=== PATIENT | female | born 1940 ===

== ENCOUNTER 2017-10-13 15:03 | Inpatient (IN) | payer MEDICARE, MEDICAID ==
[2017-10-13 15:03] VITALS: BMI 30.8
[2017-10-13] MEDS ORDERED: Albuterol-Ipratrop 3 mg / 0.5 (3 ml) UD INH STA ×2 (16:35→18:22)
--- NOTE | 2017-10-13 16:37 | RAD ---
HISTORY: cough COMPARISON: 09/29/2016 TECHNIQUE: Chest PA and lateral FINDINGS: LUNGS: No active pulmonary disease. PLEURA: No significant pleural effusion identified. No pneumothorax apparent. CARDIOVASCULAR: Normal. OSSEOUS STRUCTURES: No significant abnormalities. VISUALIZED UPPER ABDOMEN: Normal. OTHER FINDINGS: None. IMPRESSION: No active disease.
--- NOTE | 2017-10-13 16:43 | ED PDOC ---
HPI: CCC, URI, Sore Throat Time Seen by Provider: 10/13/17 16:12 Chief Complaint (Nursing): Flu-like Symptoms Chief Complaint (Provider): Flu-like symptoms History Per: Patient History/Exam Limitations: no limitations Onset/Duration Of Symptoms: Days (several), Persistent, Worse Since (onset) Current Symptoms Are (Timing): Still Present Sick Contacts (Context): Family Member(s) (Sister w/ bronchitis) Associated Symptoms: Fever (low grade), Cough, Other (dyspnea, fatigue, and malaise) Ear Symptoms: Bilateral: None Additional Complaint(s): Deja Scott is a 77 year old female, with a past medical history of asthma, pneumonia, COPD, diabetes, and HTN, who presents to the emergency department complaining of a worsening persistent cough, dyspnea, fatigue, and malaise ongoing for several days. Patient's PMD, Dr. David, prescribed her azithromycin yesterday which she started. Patient has a low grade fever, and reports a sick contact with her sister who has bronchitis. No lethargy, syncope or respiratory distress, although using more oxygen at home. No further medical complaints. PMD: Luís David Past Medical History Reviewed: Historical Data, Nursing Documentation, Vital Signs Vital Signs: Last Vital Signs Temp 98.5 F 10/13/17 18:50 Pulse 107 H 10/13/17 18:50 Resp 20 10/13/17 18:50 BP 122/56 L 10/13/17 18:50 Pulse Ox 98 10/13/17 18:50 - Medical History PMH: Anemia, Anxiety, Arthritis, Asthma, COPD, Depression, Diabetes, Graves' Disease, HTN, Osteoporosis, Pneumonia Denies: CHF, Hypercholesterolemia, Hypothyroidism, Chronic Kidney Disease - Surgical History Surgical History: No Surg Hx - Family History Family History: States: No Known Family Hx - Social History Current smoker - smoking cessation education provided: No - Immunization History Hx Influenza Vaccination: Yes Hx Pneumococcal Vaccination: Yes - Home Medications Home Medications: Ambulatory Orders Medication Instructions Recorded Clopidogrel [Plavix] 75 mg PO DAILY #0 tab 07/17/14 Insulin Detemir [Levemir] 20 units SC [facility] #0 ml 07/17/14 Montelukast [Singulair] 10 mg PO HS #0 tab 07/17/14 Valsartan [Diovan] 320 mg PO DAILY #0 tab 07/17/14 Zolpidem Tartrate [Zolpidem] 10 mg PO HS PRN 01/04/15 Insulin Aspart [Novolog Flexpen] 18 units SC TID 04/14/15 - Allergies Allergies/Adverse Reactions: Allergies Allergy/AdvReac Type Severity Reaction Status Date / Time aspirin AdvReac RASH Verified 09/25/16 13:11 Review of Systems ROS Statement: Except As Marked, All Systems Reviewed And Found Negative Constitutional: Positive for: Chills, Malaise Cardiovascular: Positive for: Other (Chest discomfort). Negative for: Orthopnea , Edema Respiratory: Positive for: Cough (persistent), Shortness of Breath Neurological: Negative for: Headache Physical Exam - Reviewed Nursing Documentation Reviewed: Yes Vital Signs Reviewed: Yes - Physical Exam Appears: Positive for: Non-toxic Head Exam: Positive for: ATRAUMATIC, NORMAL INSPECTION, NORMOCEPHALIC Skin: Positive for: Normal Color, Warm, Dry Eye Exam: Positive for: Normal appearance ENT: Positive for: Normal ENT Inspection Neck: Positive for: Painless ROM, Supple Cardiovascular/Chest: Positive for: Regular Rate, Rhythm. Negative for: Murmur Respiratory: Positive for: Wheezing (b/l trace). Negative for: Respiratory Distress Gastrointestinal/Abdominal: Positive for: Normal Exam, Soft. Negative for: Tenderness Back: Positive for: Normal Inspection. Negative for: L CVA Tenderness, R CVA Tenderness, Vertebral Tenderness Extremity: Positive for: Normal ROM. Negative for: Pedal Edema, Deformity, Swelling Neurologic/Psych: Positive for: Alert, Oriented - Laboratory Results Result Diagrams: 10/13/17 17:18 10/13/17 17:18 - ECG O2 Sat by Pulse Oximetry: 95 (RA) Pulse Ox Interpretation: Normal Nebulizer Treatments/Peak Flow - Duonebs Number of Bronchodilator Doses given?: 2 - Steroid Treatment Steroid: IV - Clinical Response Clinical Response: Unchanged Medical Decision Making Medical Decision Making: Initial Impression: Respiratory illness / Asthma exacerbation Initial Plan: --EKG --B-Type Natriuretic peptide --Comp Metabolic Panel --Troponin I --CBC w/ differential --Chest two views (PA/LAT) [RAD] --Tylenol 325 mg tab 650 mg PO --Duoneb 3 ml INH --Influenza A B --Urinalysis --reevaluation 16:31 Chest X-Ray FINDINGS: LUNGS: No active pulmonary disease. PLEURA: No significant pleural effusion identified. No pneumothorax apparent. CARDIOVASCULAR: Normal. OSSEOUS STRUCTURES: No significant abnormalities. VISUALIZED UPPER ABDOMEN: Normal. OTHER FINDINGS: None. IMPRESSION: No active disease. 630p remains w dyspnea and tachycardia, SPO2 92% on RA indicating hypoxia Additional duoneb ordered labs reviewed, mild elev BUN c/w dehydration Admit Dr David, droplet isol, tamiflu initiated Pt already took azithromycin PO today. Scribe Attestation: Documented by Desean Lira, acting as a scribe for Ousmane Hassan MD Provider Scribe Attestation: All medical record entries made by the Scribe were at my direction and personally dictated by me. I have reviewed the chart and agree that the record accurately reflects my personal performance of the history, physical exam, medical decision making, and the department course for this patient. I have also personally directed, reviewed, and agree with the discharge instructions and disposition. Disposition - Clinical Impression Clinical Impression: Influenza, COPD with asthma and status asthmaticus - Patient ED Disposition Is Patient to be Admitted: Yes Counseled Patient/Family Regarding: Studies Performed, Diagnosis - Disposition Disposition Time: 18:01 Condition: FAIR - Pt Status Changed To: Hospital Disposition Of: Inpatient - Admit Certification Admit to Inpatient:: After my assessment, the patient will require hospitalization for at least two midnights. This is because of the severity of symptoms shown, intensity of services needed, and/or the medical risk in this patient being treated as an outpatient. - POA Present On Arrival: None
[2017-10-13 17:37] LABS: ALB/GLOB RATIO 1.1 (1.0-2.1); CALCIUM 9.5 mg/dL (8.4-10.2)
[2017-10-13 17:37] LABS: SQUAMOUS EPITHIAL 2 /hpf (0-5); URINE BILIRUBIN NEGATIVE (NEGATIVE); URINE BLOOD NEGATIVE (NEGATIVE); URINE CLARITY SLIGHTY-CLOUDY (Clear); URINE COLOR YELLOW (YELLOW); URINE GLUCOSE (UA) 50 mg/dL (Normal); URINE LEUKOCYTE ESTERASE NEG Leu/uL (Negative); URINE NITRATE NEGATIVE (NEGATIVE); URINE PROTEIN 30 mg/dL (NEGATIVE); URINE UROBILINOGEN 0.2-1.0 mg/dL (0.2-1.0)
[2017-10-13 17:49] LABS: TROPONIN I 0.017 ng/mL (0.00-0.120)
[2017-10-13 17:51] LABS: BASO % 0.6 % (0.0-2.0); HEMOGLOBIN 10.8 g/dL (12.0-16.0); LYMPH # 0.5 K/uL (1.0-4.3); LYMPH % 6.7 % (20.0-40.0); MEAN CELL VOLUME 87.5 fl (81.0-99.0); MEAN CORPUSCULAR HEMOGLOBIN 29.4 pg (27.0-31.0); MEAN CORPUSCULAR HGB CONC 33.6 g/dL (33.0-37.0); MEAN PLATELET VOLUME 8.8 fl (7.2-11.7); MONO # 0.5 K/uL (0.0-0.8); MONO % 6.5 % (0.0-10.0); NEUT # 6.8 K/uL (1.8-7.0); NEUT % 86.2 % (50.0-75.0); NRBC % 0.1 % (0.0-0.0); PLATELET COUNT 221 K/uL (130-400); RBC 3.68 Mil/uL (3.80-5.20); RED CELL DISTRIBUTION WIDTH 13.9 % (11.5-14.5); WHITE BLOOD COUNT 7.9 K/uL (4.8-10.8)
[2017-10-13 18:29] LABS: ANISOCYTOSIS MODERATE; BANDS 4 % (0-2); HYPOCHROMIC SLIGHT; LYMPHOCYTE 9 % (20-50); MICROCYTOSIS SLIGHT; MONOCYTE 7 % (0-10); NEUTROPHIL 80 % (42-75); PLATELET ESTIMATE NORMAL (NORMAL); POIKILOCYTOSIS SLIGHT; TOTAL CELLS COUNTED 100
[2017-10-13 18:30] LABS: LARGE PLATELETS PRESENT
[2017-10-13] MEDS ORDERED: Sodium Chloride 0.9% 1,000 ML IV STA (19:25)
[2017-10-14] MEDS ORDERED: PROMETHAZINE HCL PO PRN (00:43)
[2017-10-14] MEDS ORDERED: CODEINE PO PRN (00:43)
[2017-10-14] MEDS ORDERED: Insulin Regular 100 units/ml ONE ×2 (00:50→01:07)
[2017-10-14] MEDS ORDERED: MethylPREDNISolone 40 mg Vial IVP SCH (01:00)
[2017-10-14] MEDS ORDERED: methylPREDNISolone 40 MG in Sodium Chloride 0.9% 50 ML IV SCH (01:00)
[2017-10-14] MEDS: MethylPREDNISolone 40 mg Vial IVP SCH ×3 (03:54→20:00)
[2017-10-14] MEDS: Promethazine/Cod 6.25mg-10mg/5ml Syr UD PO PRN ×3 (03:55→14:41)
[2017-10-14] MEDS: Albuterol-Ipratrop 3 mg / 0.5 (3 ml) UD INH SCH ×6 (04:15→23:44)
[2017-10-14] MEDS ORDERED: Insulin Regular 100 units/ml SC SCH ×2 (07:00→07:30)
[2017-10-14 07:45] LABS: MEAN CELL VOLUME 89.9 fl (81.0-99.0); MEAN CORPUSCULAR HGB CONC 32.2 g/dL (33.0-37.0); RBC 3.44 Mil/uL (3.80-5.20); WHITE BLOOD COUNT 7.3 K/uL (4.8-10.8)
[2017-10-14 08:42] LABS: ALB/GLOB RATIO 1.1 (1.0-2.1); ALBUMIN 3.7 g/dL (3.5-5.0); CALCIUM 9.3 mg/dL (8.4-10.2)
[2017-10-14] MEDS ORDERED: Insulin Detemir 100 Units/ml Inj SC SCH (09:00)
[2017-10-14] MEDS ORDERED: INSULIN GLARGINE SQ SCH (09:00)
[2017-10-14] MEDS ORDERED: Patient's Own Med (Valsartan [Diovan] 320 MG) PO SCH (09:00)
[2017-10-14] MEDS: Azithromycin 500 MG in Sodium Chloride 0.9% 250 ML IVPB SCH (13:09)
[2017-10-14] MEDS: Insulin Lispro (humaLOG) 100 Units/ml Inj SC SCH ×4 (13:09→22:21)
[2017-10-14] MEDS ORDERED: Insulin Lispro (humaLOG) 100 Units/ml Inj SC SCH (16:30)
--- NOTE | 2017-10-14 18:21 | CP.PCM.PN ---
Objective - Vital Signs/Intake and Output Vital Signs (last 24 hours): Temp Pulse Resp BP Pulse Ox 98.6 F 101 H 20 116/62 98 10/14/17 16:11 10/14/17 16:11 10/14/17 16:11 10/14/17 16:11 10/14/17 16:11 Intake and Output: 10/14/17 10/14/17 06:59 18:59 Intake Total 850 Balance 850 - Medications Medications: Current Medications Albuterol/Ipratropium (Duoneb 3 Mg/0.5 Mg (3 Ml) Ud) 3 ml INH RQ4 [facility] Last Admin: 10/14/17 15:53 Dose: 3 ml Clopidogrel Bisulfate (Plavix) 75 mg PO DAILY [facility] Last Admin: 10/14/17 08:47 Dose: 75 mg Azithromycin 500 mg/ Sodium (Chloride) 250 mls @ 250 mls/hr IVPB DAILY [facility] PRN Reason: Protocol Last Admin: 10/14/17 13:09 Dose: 250 mls/hr Insulin Detemir (Levemir) 20 units SC HS [facility] Insulin Human Lispro (Humalog) 0 units SC ACHS [facility] PRN Reason: Protocol Last Admin: 10/14/17 16:45 Dose: 8 units Insulin Human Lispro (Humalog) 12 units SC TID [facility] Last Admin: 10/14/17 16:46 Dose: 12 u Loratadine (Claritin) 10 mg PO DAILY [facility] Last Admin: 10/14/17 08:47 Dose: 10 mg Methylprednisolone (Solu-Medrol) 40 mg IVP Q8@0400,1200,2000 [facility] Last Admin: 10/14/17 12:23 Dose: 40 mg Mirtazapine (Remeron) 15 mg PO HS [facility] Montelukast Sodium (Singulair) 10 mg PO DAILY [facility] Last Admin: 10/14/17 08:48 Dose: 10 mg Oseltamivir Phosphate (Tamiflu Cap) 75 mg PO BID [facility] PRN Reason: Protocol Last Admin: 10/14/17 16:46 Dose: 75 mg Promethazine HCl/Codeine (Phenergan/Codeine Oral Syrup) 10 ml PO Q4 PRN PRN Reason: Cough Last Admin: 10/14/17 14:41 Dose: 10 ml Valsartan (Diovan) 320 mg PO DAILY [facility] Last Admin: 10/14/17 08:49 Dose: 320 mg - Labs Labs: 10/14/17 06:45 10/14/17 06:45
--- NOTE | 2017-10-14 18:21 | CP.PCM.HP ---
History of Present Illness - History of Present Illness History of Present Illness: CC: SOB. 77 y/o F, Hx of COPD, Asthma, HTN, DMII, came to ER [facility], [place] to be evaluated for moderate SOB associated to persistent dry cough for 3 days [employer], Pt seen previously in my office, Rx Zithromax po, Prednisone with no relief Worsening symptoms: Generalized body pain, intensity 7:10, weakness, low grade fever, Serology on evaluation in the ED: + Influenza A. Pt mentioned; she was in contact with her sister that has Bronchitis, generalized weakness and was in bed. Also Pt c/o of R nee pain 2nd to fall on 09/25/17. Aggravated factor: Unable to do any ADL. Pt denied: CP, abdominal pain, n/v/d, productive or bloody cough, legs swelling , dizziness. CXR: No active disease. Present on Admission - Present on Admission Any Indicators Present on Admission: No Review of Systems - Constitutional Constitutional: Fever, Weakness - EENT Eyes: Other (negative) Ears: Other (negative) Nose/Mouth/Throat: Nasal Congestion - Cardiovascular Cardiovascular: Rapid Heart Rate - Respiratory Respiratory: Cough, Dyspnea - Gastrointestinal Gastrointestinal: Other (negative) - Genitourinary Genitourinary: Other (negative) - Musculoskeletal Musculoskeletal: Arthralgias, Myalgias - Integumentary Integumentary: Other (negtaive) - Neurological Neurological: Other (negative) - Psychiatric Psychiatric: Anxiety - Endocrine Endocrine: Other (negative) - Hematologic/Lymphatic Hematologic: Other (negative) Past Patient History - Tetanus Immunizations Tetanus Immunization: Unknown - Past Medical History & Family History Past Medical History?: Yes Pertinent Family History: Unknown - Past Social History Smoking Status: Former Smoker Alcohol: None Drugs: Denies Home Situation {Lives}: With Family - CARDIAC Hx Cardiac Disorders: Yes Hx Congestive Heart Failure: No Hx Hypercholesterolemia: No Hx Hypertension: Yes - PULMONARY Hx Respiratory Disorders: Yes Hx Asthma: Yes Hx Chronic Obstructive Pulmonary Disease (COPD): Yes Hx Pneumonia: Yes - NEUROLOGICAL Hx Neurological Disorder: No - HEENT Hx HEENT Problems: Yes Other/Comment: Allergic Rhinitis - RENAL Hx Chronic Kidney Disease: No - ENDOCRINE/METABOLIC Hx Endocrine Disorders: Yes Hx Diabetes Mellitus Type 1: Yes Hx Hypothyroidism: No - HEMATOLOGICAL/ONCOLOGICAL Hx Blood Disorders: Yes Hx Anemia: Yes - INTEGUMENTARY Hx Dermatological Problems: No - MUSCULOSKELETAL/RHEUMATOLOGICAL Hx Musculoskeletal Disorders: Yes Hx Arthritis: Yes Hx Falls: No Hx Osteoporosis: Yes - GASTROINTESTINAL Hx Gastrointestinal Disorders: No - GENITOURINARY/GYNECOLOGICAL Hx Genitourinary Disorders: No - PSYCHIATRIC Hx Psychophysiologic Disorder: Yes Hx Anxiety: Yes Hx Depression: Yes Hx Substance Use: No - SURGICAL HISTORY Hx Surgeries: Yes Hx Angiogram: Yes (As per pt, done by Dr. Marlon Rodriges) Hx Orthopedic Surgery: Yes (left arm surgery) - ANESTHESIA Hx Anesthesia: Yes Hx Anesthesia Reactions: No Hx Malignant Hyperthermia: No Has any member of the family had a problem w/ anesthesia?: No Meds Home Medications: Home Medication List Medication Instructions Recorded Confirmed Type Loratadine [Claritin] 10 mg PO DAILY #14 tab 10/18/17 Rx Pantoprazole [Protonix] 40 mg PO DAILY #14 ect 10/18/17 Rx predniSONE [predniSONE Tab] 30 mg PO DAILY #24 tab 10/18/17 Rx Allergies/Adverse Reactions: Allergies Allergy/AdvReac Type Severity Reaction Status Date / Time aspirin AdvReac RASH Verified 09/25/16 13:11 Physical Exam - Head Exam Head Exam: NORMAL INSPECTION - Eye Exam Eye Exam: PERRL - ENT Exam ENT Exam: Mucous Membranes Moist - Neck Exam Neck exam: Positive for: Normal Inspection - Respiratory Exam Respiratory Exam: Wheezes (scattered) - Cardiovascular Exam Cardiovascular Exam: REGULAR RHYTHM - GI/Abdominal Exam GI & Abdominal Exam: Normal Bowel Sounds, Soft - Back Exam Back exam: NORMAL INSPECTION - Neurological Exam Neurological exam: Alert, Oriented x3 Additional comments: No motor sensory deficit. - Psychiatric Exam Psychiatric exam: Anxious - Skin Skin Exam: Warm Results - Vital Signs Recent Vital Signs: Last Vital Signs Temp 98.6 F 10/14/17 16:11 Pulse 101 H 10/14/17 16:11 Resp 20 10/14/17 16:11 BP 116/62 10/14/17 16:11 Pulse Ox 98 10/14/17 16:11 reviewed Arie - Labs Result Diagrams: 10/18/17 05:53 10/18/17 05:53 Labs: Laboratory Results - last 24 hr 10/13/17 10/14/17 10/14/17 17:18 00:19 06:02 WBC RBC Hgb Hct MCV MCH MCHC RDW Plt Count Neutrophils % (Manual) 80 H Band Neutrophils % 4 H Lymphocytes % (Manual) 9 L Monocytes % (Manual) 7 Platelet Estimate Normal Large Platelets Present Hypochromasia (manual) Slight Poikilocytosis (manual Slight Anisocytosis (manual) Moderate Microcytosis (manual) Slight Sodium Potassium Chloride Carbon Dioxide Anion Gap BUN Creatinine Est GFR ( Amer) Est GFR (Non-Af Amer) POC Glucose (mg/dL) 409 H* 395 H Random Glucose Calcium Total Bilirubin AST ALT Alkaline Phosphatase Total Protein Albumin Globulin Albumin/Globulin Ratio 10/14/17 10/14/17 10/14/17 06:45 06:45 10:36 WBC 7.3 RBC 3.44 L Hgb 10.0 L Hct 30.9 L MCV 89.9 D MCH 29.0 MCHC 32.2 L RDW 14.0 Plt Count 208 Neutrophils % (Manual) Band Neutrophils % Lymphocytes % (Manual) Monocytes % (Manual) Platelet Estimate Large Platelets Hypochromasia (manual) Poikilocytosis (manual Anisocytosis (manual) Microcytosis (manual) Sodium 134 Potassium 4.9 Chloride 100 Carbon Dioxide 21 L Anion Gap 18 BUN 33 H Creatinine 1.6 H Est GFR ( Amer) 38 Est GFR (Non-Af Amer) 31 POC Glucose (mg/dL) 409 H* Random Glucose 454 H* D Calcium 9.3 Total Bilirubin 0.3 AST 31 ALT 37 Alkaline Phosphatase 61 Total Protein 7.1 Albumin 3.7 Globulin 3.3 Albumin/Globulin Ratio 1.1 10/14/17 16:06 WBC RBC Hgb Hct MCV MCH MCHC RDW Plt Count Neutrophils % (Manual) Band Neutrophils % Lymphocytes % (Manual) Monocytes % (Manual) Platelet Estimate Large Platelets Hypochromasia (manual) Poikilocytosis (manual Anisocytosis (manual) Microcytosis (manual) Sodium Potassium Chloride Carbon Dioxide Anion Gap BUN Creatinine Est GFR ( Amer) Est GFR (Non-Af Amer) POC Glucose (mg/dL) 302 H Random Glucose Calcium Total Bilirubin AST ALT Alkaline Phosphatase Total Protein Albumin Globulin Albumin/Globulin Ratio reviewed J.P. - Imaging and Cardiology Chest x-ray Status: Report reviewed by me (J.P.) Assessment & Plan (1) Influenza A Status: Acute Priority: High (2) Asthma exacerbation Status: Acute (3) Hyperglycemia due to type 2 diabetes mellitus Status: Acute Priority: High (4) Hypertension Status: Chronic Priority: Medium (5) Depression Status: Chronic Priority: Medium (6) Anxiety Status: Chronic Priority: Medium (7) PVD (peripheral vascular disease) Status: Chronic Priority: Medium - Assessment and Plan (Free Text) Plan: F/U EKG, Hgb A1C, Pelvis Xray, continue Zithromax IV,Tamiflu , Duoneb, Phenergan with Co, Claritin, Lantus, Humalog,Levemir, Diovan, Phenergan DM and resty of tx. - Date & Time Date: 10/14/17 Time: 16:00
--- NOTE | 2017-10-14 19:35 | CARD ---
APPROVED REPORT EKG Measurement Heart [id number] <Conclusion> Sinus tachycardia Nonspecific ST and T wave abnormality Abnormal ECG
[2017-10-14] MEDS: Insulin Detemir 100 Units/ml Inj SC SCH (22:21)
[2017-10-15] MEDS: Albuterol-Ipratrop 3 mg / 0.5 (3 ml) UD INH SCH ×6 (03:35→23:56)
[2017-10-15] MEDS: MethylPREDNISolone 40 mg Vial IVP SCH ×3 (04:43→21:16)
[2017-10-15] MEDS: Insulin Lispro (humaLOG) 100 Units/ml Inj SC SCH ×7 (08:23→21:43)
[2017-10-15] MEDS: Azithromycin 500 MG in Sodium Chloride 0.9% 250 ML IVPB SCH (08:27)
[2017-10-15] MEDS: Promethazine/Cod 6.25mg-10mg/5ml Syr UD PO PRN ×2 (08:28→12:17)
--- NOTE | 2017-10-15 15:28 | CP.PCM.PN ---
Subjective - Date & Time of Evaluation Date of Evaluation: 10/15/17 Time of Evaluation: 11:30 - Subjective Subjective: F/U Influenza A, Asthma Exacerbation. Pt with dry cough, paroxysmal at times, myalgia, malaise, no SOB. Objective - Vital Signs/Intake and Output Vital Signs (last 24 hours): Temp Pulse Resp BP Pulse Ox 97.7 F 116 H 18 158/72 H 96 10/15/17 11:54 10/15/17 11:54 10/15/17 11:54 10/15/17 11:54 10/15/17 11:54 - Medications Medications: Current Medications Albuterol/Ipratropium (Duoneb 3 Mg/0.5 Mg (3 Ml) Ud) 3 ml INH RQ4 [facility] Last Admin: 10/15/17 11:49 Dose: 3 ml Clopidogrel Bisulfate (Plavix) 75 mg PO DAILY [facility] Last Admin: 10/15/17 08:26 Dose: 75 mg Azithromycin 500 mg/ Sodium (Chloride) 250 mls @ 250 mls/hr IVPB DAILY [facility] PRN Reason: Protocol Last Admin: 10/15/17 08:27 Dose: 250 mls/hr Insulin Detemir (Levemir) 20 units SC HS [facility] Last Admin: 10/14/17 22:21 Dose: 20 u Insulin Human Lispro (Humalog) 0 units SC ACHS [facility] PRN Reason: Protocol Last Admin: 10/15/17 11:08 Dose: 10 units Insulin Human Lispro (Humalog) 12 units SC TID [facility] Last Admin: 10/15/17 11:45 Dose: 12 u Loratadine (Claritin) 10 mg PO DAILY [facility] Last Admin: 10/15/17 08:26 Dose: 10 mg Methylprednisolone (Solu-Medrol) 40 mg IVP Q8@0400,1200,2000 [facility] Last Admin: 10/15/17 11:04 Dose: 40 mg Mirtazapine (Remeron) 15 mg PO HS [facility] Last Admin: 10/14/17 22:20 Dose: 15 mg Montelukast Sodium (Singulair) 10 mg PO DAILY [facility] Last Admin: 10/15/17 08:26 Dose: 10 mg Oseltamivir Phosphate (Tamiflu Cap) 75 mg PO BID [facility] PRN Reason: Protocol Last Admin: 10/15/17 08:26 Dose: 75 mg Promethazine HCl/Codeine (Phenergan/Codeine Oral Syrup) 10 ml PO Q4 PR[facility] PRN Reason: Cough Last Admin: 10/15/17 12:17 Dose: 10 ml Valsartan (Diovan) 320 mg PO DAILY [facility] Last Admin: 10/15/17 08:26 Dose: 320 mg - Labs Labs: 10/14/17 06:45 10/14/17 06:45 - Constitutional Appears: No Acute Distress - Head Exam Head Exam: NORMAL INSPECTION - Eye Exam Eye Exam: PERRL - ENT Exam ENT Exam: Mucous Membranes Moist - Neck Exam Neck Exam: Normal Inspection - Respiratory Exam Respiratory Exam: Wheezes (scatered) - Cardiovascular Exam Cardiovascular Exam: REGULAR RHYTHM - GI/Abdominal Exam GI & Abdominal Exam: Soft, Normal Bowel Sounds - Extremities Exam Extremities Exam: Normal Inspection - Back Exam Back Exam: NORMAL INSPECTION - Neurological Exam Neurological Exam: Alert, Oriented x3. absent: Motor Sensory Deficit - Psychiatric Exam Psychiatric exam: Anxious - Skin Skin Exam: Warm Assessment and Plan (1) Influenza A Status: Acute (2) Asthma exacerbation Status: Acute (3) Hyperglycemia due to type 2 diabetes mellitus Status: Acute (4) Hypertension Status: Chronic (5) Depression Status: Chronic (6) Anxiety Status: Chronic (7) PVD (peripheral vascular disease) Status: Chronic - Assessment and Plan (Free Text) Plan: Continue Zithromax, Duoneb, Solumedrol, Phenergan and rest of Tx.
[2017-10-15] MEDS: Insulin Detemir 100 Units/ml Inj SC SCH (21:41)
[2017-10-16] MEDS: Promethazine/Cod 6.25mg-10mg/5ml Syr UD PO PRN ×4 (01:09→21:01)
[2017-10-16] MEDS: Albuterol-Ipratrop 3 mg / 0.5 (3 ml) UD INH SCH ×5 (05:01→19:04)
[2017-10-16] MEDS: MethylPREDNISolone 40 mg Vial IVP SCH ×3 (05:24→21:02)
[2017-10-16] MEDS: Insulin Lispro (humaLOG) 100 Units/ml Inj SC SCH ×7 (06:36→21:01)
[2017-10-16] MEDS: Azithromycin 500 MG in Sodium Chloride 0.9% 250 ML IVPB SCH (10:02)
--- NOTE | 2017-10-16 15:18 | CP.PCM.PN ---
Subjective - Date & Time of Evaluation Date of Evaluation: 10/16/17 Time of Evaluation: 10:50 - Subjective Subjective: F/U Influenza A, Asthma Exacerbation. Pt with paroxysmal cough at times but less than yesterday. Objective - Vital Signs/Intake and Output Vital Signs (last 24 hours): Temp Pulse Resp BP Pulse Ox 97.4 F L 99 H 18 136/69 98 10/16/17 12:22 10/16/17 12:22 10/16/17 12:22 10/16/17 12:22 10/16/17 12:22 Intake and Output: 10/16/17 10/16/17 06:59 18:59 Intake Total 250 Balance 250 - Medications Medications: Current Medications Albuterol/Ipratropium (Duoneb 3 Mg/0.5 Mg (3 Ml) Ud) 3 ml INH RQ4 [facility] Last Admin: 10/16/17 11:46 Dose: 3 ml Clopidogrel Bisulfate (Plavix) 75 mg PO DAILY [facility] Last Admin: 10/16/17 10:02 Dose: 75 mg Azithromycin 500 mg/ Sodium (Chloride) 250 mls @ 250 mls/hr IVPB DAILY [facility] PRN Reason: Protocol Last Admin: 10/16/17 10:02 Dose: 250 mls/hr Insulin Detemir (Levemir) 20 units SC HS [facility] Last Admin: 10/15/17 21:41 Dose: 20 u Insulin Human Lispro (Humalog) 0 units SC ACHS [facility] PRN Reason: Protocol Last Admin: 10/16/17 11:52 Dose: 12 units Insulin Human Lispro (Humalog) 12 units SC TID [facility] Last Admin: 10/16/17 12:01 Dose: 12 u Loratadine (Claritin) 10 mg PO DAILY [facility] Last Admin: 10/16/17 10:03 Dose: 10 mg Methylprednisolone (Solu-Medrol) 30 mg IVP Q8@0400,1200,2000 [facility] Last Admin: 10/16/17 11:55 Dose: 30 mg Mirtazapine (Remeron) 15 mg PO HS [facility] Last Admin: 10/15/17 21:17 Dose: 15 mg Montelukast Sodium (Singulair) 10 mg PO DAILY [facility] Last Admin: 10/16/17 10:03 Dose: 10 mg Oseltamivir Phosphate (Tamiflu Cap) 75 mg PO BID [facility] PRN Reason: Protocol Last Admin: 10/16/17 10:02 Dose: 75 mg Promethazine HCl/Codeine (Phenergan/Codeine Oral Syrup) 10 ml PO Q4 PRN PRN Reason: Cough Last Admin: 10/16/17 11:51 Dose: 10 ml Valsartan (Diovan) 320 mg PO DAILY [facility] Last Admin: 10/16/17 10:03 Dose: 320 mg - Labs Labs: 10/14/17 06:45 10/14/17 06:45 - Constitutional Appears: No Acute Distress - Head Exam Head Exam: NORMAL INSPECTION - Eye Exam Eye Exam: PERRL - ENT Exam ENT Exam: Normal Exam - Neck Exam Neck Exam: Normal Inspection - Respiratory Exam Respiratory Exam: Wheezes (Only with paroxysmal cough) Additional comments: No bronchospasm. - Cardiovascular Exam Cardiovascular Exam: REGULAR RHYTHM - GI/Abdominal Exam GI & Abdominal Exam: Soft, Normal Bowel Sounds - Extremities Exam Extremities Exam: Normal Inspection - Back Exam Back Exam: NORMAL INSPECTION - Neurological Exam Neurological Exam: Alert, Oriented x3. absent: Motor Sensory Deficit - Psychiatric Exam Psychiatric exam: Anxious - Skin Skin Exam: Warm Assessment and Plan (1) Influenza A Status: Acute (2) Asthma exacerbation Status: Acute (3) Hyperglycemia due to type 2 diabetes mellitus Status: Acute (4) Hypertension Status: Chronic (5) Depression Status: Chronic (6) Anxiety Status: Chronic (7) PVD (peripheral vascular disease) Status: Chronic - Assessment and Plan (Free Text) Plan: Continue Tamiflu, Zithromax, Duoneb and rest of Tx.
[2017-10-16] MEDS: Insulin Detemir 100 Units/ml Inj SC SCH (21:01)
[2017-10-17] MEDS: Albuterol-Ipratrop 3 mg / 0.5 (3 ml) UD INH SCH ×7 (00:06→23:35)
[2017-10-17] MEDS: Promethazine/Cod 6.25mg-10mg/5ml Syr UD PO PRN ×4 (01:38→21:01)
[2017-10-17] MEDS: MethylPREDNISolone 40 mg Vial IVP SCH ×3 (05:59→21:00)
[2017-10-17] MEDS: Insulin Lispro (humaLOG) 100 Units/ml Inj SC SCH ×7 (07:07→22:43)
[2017-10-17] MEDS: Azithromycin 500 MG in Sodium Chloride 0.9% 250 ML IVPB SCH (09:56)
--- NOTE | 2017-10-17 19:45 | CP.PCM.PN ---
Subjective - Date & Time of Evaluation Date of Evaluation: 10/17/17 Time of Evaluation: 12:30 - Subjective Subjective: F/U Influenza A, Asthma Exacerbation. Paroxysmal cough with chest burning sensation and SOB, no SOB between episodes of cough. Objective - Vital Signs/Intake and Output Vital Signs (last 24 hours): Temp Pulse Resp BP Pulse Ox 97.8 F 88 20 160/72 H 95 10/17/17 16:14 10/17/17 16:14 10/17/17 16:14 10/17/17 16:14 10/17/17 16:14 Intake and Output: 10/17/17 10/18/17 18:59 06:59 Intake Total 250 Balance 250 - Medications Medications: Current Medications Albuterol/Ipratropium (Duoneb 3 Mg/0.5 Mg (3 Ml) Ud) 3 ml INH RQ4 [facility] Last Admin: 10/17/17 19:28 Dose: 3 ml Clopidogrel Bisulfate (Plavix) 75 mg PO DAILY [facility] Last Admin: 10/17/17 09:52 Dose: 75 mg Azithromycin 500 mg/ Sodium (Chloride) 250 mls @ 250 mls/hr IVPB DAILY [facility] PRN Reason: Protocol Last Admin: 10/17/17 09:56 Dose: 250 mls/hr Insulin Detemir (Levemir) 20 units SC HS [facility] Last Admin: 10/16/17 21:01 Dose: 20 u Insulin Human Lispro (Humalog) 0 units SC ACHS [facility] PRN Reason: Protocol Last Admin: 10/17/17 16:36 Dose: Not Given Insulin Human Lispro (Humalog) 12 units SC TID [facility] Last Admin: 10/17/17 16:36 Dose: 219 u Loratadine (Claritin) 10 mg PO DAILY [facility] Last Admin: 10/17/17 09:48 Dose: 10 mg Methylprednisolone (Solu-Medrol) 30 mg IVP Q12 [facility] Mirtazapine (Remeron) 15 mg PO HS [facility] Last Admin: 10/16/17 21:01 Dose: 15 mg Montelukast Sodium (Singulair) 10 mg PO DAILY [facility] Last Admin: 10/17/17 09:52 Dose: 10 mg Oseltamivir Phosphate (Tamiflu Cap) 75 mg PO BID [facility] PRN Reason: Protocol Last Admin: 10/17/17 16:37 Dose: 75 mg Promethazine HCl/Codeine (Phenergan/Codeine Oral Syrup) 10 ml PO Q4 PRN PRN Reason: Cough Last Admin: 10/17/17 16:39 Dose: 10 ml Valsartan (Diovan) 320 mg PO DAILY [facility] Last Admin: 10/17/17 09:49 Dose: 320 mg - Labs Labs: 10/14/17 06:45 10/14/17 06:45 - Constitutional Appears: No Acute Distress - Head Exam Head Exam: NORMAL INSPECTION - Eye Exam Eye Exam: PERRL - ENT Exam ENT Exam: Normal Exam - Neck Exam Neck Exam: Normal Inspection - Respiratory Exam Respiratory Exam: Wheezes (scattered) - Cardiovascular Exam Cardiovascular Exam: REGULAR RHYTHM - GI/Abdominal Exam GI & Abdominal Exam: Soft, Normal Bowel Sounds - Extremities Exam Extremities Exam: Normal Inspection - Back Exam Back Exam: NORMAL INSPECTION - Neurological Exam Neurological Exam: Alert, Oriented x3. absent: Motor Sensory Deficit - Psychiatric Exam Psychiatric exam: Anxious - Skin Skin Exam: Warm Assessment and Plan (1) Influenza A Status: Acute (2) Asthma exacerbation Status: Acute (3) Hyperglycemia due to type 2 diabetes mellitus Status: Acute (4) Hypertension Status: Chronic (5) Depression Status: Chronic (6) Anxiety Status: Chronic (7) PVD (peripheral vascular disease) Status: Chronic - Assessment and Plan (Free Text) Plan: Continue Tamiflu, Solumedrol, Duoneb, Zithromax and rest of Tx.
[2017-10-17] MEDS: Insulin Detemir 100 Units/ml Inj SC SCH (21:03)
[2017-10-18] MEDS: Albuterol-Ipratrop 3 mg / 0.5 (3 ml) UD INH SCH ×3 (03:59→11:18)
[2017-10-18] MEDS: Promethazine/Cod 6.25mg-10mg/5ml Syr UD PO PRN ×2 (05:46→13:15)
[2017-10-18 06:08] LABS: HEMOGLOBIN 10.6 g/dL (12.0-16.0); MEAN CELL VOLUME 88.5 fl (81.0-99.0); MEAN CORPUSCULAR HEMOGLOBIN 28.6 pg (27.0-31.0); MEAN CORPUSCULAR HGB CONC 32.3 g/dL (33.0-37.0); RBC 3.71 Mil/uL (3.80-5.20); RED CELL DISTRIBUTION WIDTH 13.3 % (11.5-14.5); WHITE BLOOD COUNT 7.5 K/uL (4.8-10.8)
[2017-10-18] MEDS: Insulin Lispro (humaLOG) 100 Units/ml Inj SC SCH ×4 (06:32→13:16)
[2017-10-18 06:37] LABS: CALCIUM 9.8 mg/dL (8.4-10.2)
[2017-10-18] MEDS: Azithromycin 500 MG in Sodium Chloride 0.9% 250 ML IVPB SCH (09:02)
[2017-10-18] MEDS: MethylPREDNISolone 40 mg Vial IVP SCH (09:23)
[2017-10-18 12:20] VITALS: BP 148/68; PULSE 100; RESP 18; TEMP 97.8; O2SAT 98
--- NOTE | 2017-10-18 13:40 | CP.PCM.PN ---
Objective - Vital Signs/Intake and Output Vital Signs (last 24 hours): Temp Pulse Resp BP Pulse Ox 97.8 F 100 H 18 148/68 98 10/18/17 12:00 10/18/17 12:00 10/18/17 12:00 10/18/17 12:00 10/18/17 12:00 - Medications Medications: Current Medications Albuterol/Ipratropium (Duoneb 3 Mg/0.5 Mg (3 Ml) Ud) 3 ml INH RQ4 [facility] Last Admin: 10/18/17 11:18 Dose: 3 ml Clopidogrel Bisulfate (Plavix) 75 mg PO DAILY [facility] Last Admin: 10/18/17 08:59 Dose: 75 mg Azithromycin 500 mg/ Sodium (Chloride) 250 mls @ 250 mls/hr IVPB DAILY [facility] PRN Reason: Protocol Last Admin: 10/18/17 09:02 Dose: 250 mls/hr Insulin Detemir (Levemir) 20 units SC HS [facility] Last Admin: 10/17/17 21:03 Dose: 20 u Insulin Human Lispro (Humalog) 0 units SC ACHS [facility] PRN Reason: Protocol Last Admin: 10/18/17 13:15 Dose: 6 units Insulin Human Lispro (Humalog) 12 units SC TID [facility] Last Admin: 10/18/17 13:16 Dose: 12 units Loratadine (Claritin) 10 mg PO DAILY [facility] Last Admin: 10/18/17 09:00 Dose: 10 mg Mirtazapine (Remeron) 15 mg PO HS [facility] Last Admin: 10/17/17 21:00 Dose: 15 mg Montelukast Sodium (Singulair) 10 mg PO DAILY [facility] Last Admin: 10/18/17 09:00 Dose: 10 mg Oseltamivir Phosphate (Tamiflu Cap) 75 mg PO BID [facility] PRN Reason: Protocol Last Admin: 10/18/17 08:59 Dose: 75 mg Prednisone (Prednisone Tab) 30 mg PO DAILY [facility] Promethazine HCl/Codeine (Phenergan/Codeine Oral Syrup) 10 ml PO Q4 PRN PRN Reason: Cough Last Admin: 10/18/17 13:15 Dose: 10 ml Valsartan (Diovan) 320 mg PO DAILY [facility] Last Admin: 10/18/17 08:58 Dose: 320 mg - Labs Labs: 10/18/17 05:53 10/18/17 05:53 Assessment and Plan (1) Influenza A Status: Acute (2) Asthma exacerbation Status: Acute (3) Hyperglycemia due to type 2 diabetes mellitus Status: Acute (4) Hypertension Status: Chronic (5) Depression Status: Chronic (6) Anxiety Status: Chronic (7) PVD (peripheral vascular disease) Status: Chronic
--- NOTE | 2017-10-18 14:05 | CP.PCM.DIS ---
Provider - Provider Date of Admission: 10/13/17 18:22 Attending physician: Luís David MD Diagnosis - Discharge Diagnosis (1) Influenza A Status: Acute Priority: High (2) Asthma exacerbation Status: Acute (3) Hyperglycemia due to type 2 diabetes mellitus Status: Acute Priority: High (4) Hypertension Status: Chronic Priority: Medium (5) Depression Status: Chronic Priority: Medium (6) Anxiety Status: Chronic Priority: Medium (7) PVD (peripheral vascular disease) Status: Chronic Priority: Medium Hospital Course - Lab Results Lab Results: Most Recent Lab Values WBC 7.5 K/uL (4.8-10.8) 10/18/17 05:53 RBC 3.71 Mil/uL (3.80-5.20) L 10/18/17 05:53 Hgb 10.6 g/dL (12.0-16.0) L 10/18/17 05:53 Hct 32.8 % (34.0-47.0) L 10/18/17 05:53 MCV 88.5 fl (81.0-99.0) 10/18/17 05:53 MCH 28.6 pg (27.0-31.0) 10/18/17 05:53 MCHC 32.3 g/dL (33.0-37.0) L 10/18/17 05:53 RDW 13.3 % (11.5-14.5) 10/18/17 05:53 Plt Count 209 K/uL (130-400) 10/18/17 05:53 MPV 8.8 fl (7.2-11.7) 10/13/17 17:18 Neut % (Auto) 86.2 % (50.0-75.0) H 10/13/17 17:18 Lymph % (Auto) 6.7 % (20.0-40.0) L 10/13/17 17:18 [place] % (Auto) 6.5 % (0.0-10.0) 10/13/17 17:18 Eos % (Auto) 0.0 % (0.0-4.0) 10/13/17 17:18 Baso % (Auto) 0.6 % (0.0-2.0) 10/13/17 17:18 Neut # 6.8 K/uL (1.8-7.0) 10/13/17 17:18 Lymph # 0.5 K/uL (1.0-4.3) L 10/13/17 17:18 [place] # 0.5 K/uL (0.0-0.8) 10/13/17 17:18 Eos # 0.0 K/uL (0.0-0.7) 10/13/17 17:18 Baso # 0.0 K/uL (0.0-0.2) 10/13/17 17:18 Neutrophils % (Manual) 80 % (42-75) H 10/13/17 17:18 Band Neutrophils % 4 % (0-2) H 10/13/17 17:18 Lymphocytes % (Manual) 9 % (20-50) L 10/13/17 17:18 Monocytes % (Manual) 7 % (0-10) 10/13/17 17:18 Platelet Estimate Normal (NORMAL) 10/13/17 17:18 Large Platelets Present 10/13/17 17:18 Hypochromasia (manual) Slight 10/13/17 17:18 Poikilocytosis (manual Slight 10/13/17 17:18 Anisocytosis (manual) Moderate 10/13/17 17:18 Microcytosis (manual) Slight 10/13/17 17:18 Sodium 136 mmol/l (132-148) 10/18/17 05:53 Potassium 5.3 MMOL/L (3.6-5.0) H 10/18/17 05:53 Chloride 97 mmol/L (98-107) L 10/18/17 05:53 Carbon Dioxide 28 mmol/L (22-30) 10/18/17 05:53 Anion Gap 16 (10-20) 10/18/17 05:53 BUN 37 mg/dl (7-17) H 10/18/17 05:53 Creatinine 1.1 mg/dl (0.7-1.2) 10/18/17 05:53 Est GFR ( Amer) 58 10/18/17 05:53 Est GFR (Non-Af Amer) 48 10/18/17 05:53 POC Glucose (mg/dL) 299 mg/dL (65-110) H 10/18/17 11:43 Random Glucose 401 mg/dL (65-105) H* 10/18/17 05:53 Hemoglobin A1c 7.7 % (4.2-6.5) H 10/14/17 06:45 Calcium 9.8 mg/dL (8.4-10.2) 10/18/17 05:53 Total Bilirubin 0.3 mg/dl (0.2-1.3) 10/14/17 06:45 AST 31 U/L (14-36) 10/14/17 06:45 ALT 37 U/L (9-52) 10/14/17 06:45 Alkaline Phosphatase 61 U/L (38-126) 10/14/17 06:45 Troponin I 0.0170 ng/mL (0.00-0.120) 10/13/17 17:18 NT-Pro-B Natriuret Pep 150 pg/ml (0-900) 10/13/17 17: Total Protein 7.1 G/DL (6.3-8.2) 10/14/17 06:45 Albumin 3.7 g/dL (3.5-5.0) 10/14/17 06:45 Globulin 3.3 gm/dL (2.2-3.9) 10/14/17 06:45 Albumin/Globulin Ratio 1.1 (1.0-2.1) 10/14/17 06:45 Urine Color Yellow (YELLOW) 10/13/17 17: Urine Clarity Slighty-cloudy (Clear) 10/13/17 17:29 Urine pH 6.0 (5.0-8.0) 10/13/17 17:29 Ur Specific [place] 1.016 (1.003-1.030) 10/13/17 17: Urine Protein 30 mg/dL (NEGATIVE) 10/13/17 17:29 Urine Glucose (UA) 50 mg/dL (Normal) 10/13/17 17: Urine Ketones Negative mg/dL (NEGATIVE) 10/13/17 17: Urine Blood Negative (NEGATIVE) 10/13/17 17: Urine Nitrate Negative (NEGATIVE) 10/13/17 17: Urine Bilirubin Negative (NEGATIVE) 10/13/17 17: Urine Urobilinogen 0.2-1.0 mg/dL (0.2-1.0) 10/13/17 17:29 Ur Leukocyte Esterase Neg [place]/uL (Negative) 10/13/17 17:29 Urine RBC (Auto) 1 /hpf (0-3) 10/13/17 17:29 Urine Microscopic WBC 1 /hpf (0-5) 10/13/17 17:29 Ur Squamous Epith Cells 2 /hpf (0-5) 10/13/17 17:29 Influenza Typ A,B (EIA) Pos for influenza a (NEGATIVE) H 10/13/17 17:18 Discharge Exam - Head Exam Head Exam: NORMAL INSPECTION Discharge Plan - Discharge Medications Prescriptions: Loratadine [Claritin] 10 mg PO DAILY #14 tab predniSONE [predniSONE Tab] 30 mg PO DAILY #24 tab Pantoprazole [Protonix] 40 mg PO DAILY #14 ect - Follow Up Plan Condition: FAIR Disposition: HOME/ ROUTINE Instructions: Influenza (DC) Additional Instructions: pt. cleared for discharge to Home today by Rx for meds provided pt. to f/u with in 1 week Referrals: Luís David MD [Family Provider] -
== END 2017-10-18 16:30 | disposition home or self-care (01) | DRG 194 ==
LOC: H.ER 15:03 → H.ERHOLD 18:22 → H.TEL 10-14 01:37
PROVIDERS: ADMIT Internal Medicine Pulmonary Disease; ATTEND Internal Medicine Pulmonary Disease
DX: J10.1 Influenza due to other identified influenza virus with other respiratory manifestations (principal); J45.901 Unspecified asthma with (acute) exacerbation; E11.51 Type 2 diabetes mellitus with diabetic peripheral angiopathy without gangrene; E11.65 Type 2 diabetes mellitus with hyperglycemia; I10 Essential (primary) hypertension; F32.9 Major depressive disorder, single episode, unspecified; F41.9 Anxiety disorder, unspecified; Z88.6 Allergy status to analgesic agent; J44.9 Chronic obstructive pulmonary disease, unspecified; M81.0 Age-related osteoporosis without current pathological fracture; E86.0 Dehydration; Z87.891 Personal history of nicotine dependence; R09.02 Hypoxemia

== ENCOUNTER 2018-04-29 17:09 | Emergency (ER) | payer MEDICARE, MEDICAID ==
[2018-04-29 17:09] VITALS: BMI 30.8
[2018-04-29 17:29] VITALS: O2SAT 100
--- NOTE | 2018-04-29 17:52 | ED PDOC ---
Lower Extremity Pain/Injury Time Seen by Provider: 04/29/18 17:32 Chief Complaint (Nursing): Lower Extremity Problem/Injury Chief Complaint (Provider): Leg pain History Per: Patient Additional Complaint(s): 77 y/o F, Hx of COPD, Asthma, HTN, DMII, presents to ED for evaluation of increasing "pain and numbness" in right leg. Patient underwent peripheral artery angioplasty on 04/19/18. Pt reports that when she walks she begins to feel the pain and then develops a pressure in her face and gets flushed. Pt then develops some palpitations. Pt concerned it might be her BP. Patient also had change in BP medication from Diovan to Avapor 300mg, which started today. Pt also admits to a history of anxiety. PMD: Dr. David Cardio: Dr. Rodriges Past Medical History Reviewed: Historical Data, Nursing Documentation, Vital Signs Vital Signs: Last Vital Signs Temp 98.2 F 04/29/18 17:28 Pulse 113 H 04/29/18 17:28 Resp 18 04/29/18 17:28 BP 131/56 L 04/29/18 17:28 Pulse Ox 100 04/29/18 17:28 - Medical History PMH: Anemia, Anxiety, Arthritis, Asthma, COPD, Depression, Diabetes, Graves' Disease, HTN, Osteoporosis, Pneumonia Denies: CHF, Hypercholesterolemia, Hypothyroidism, Chronic Kidney Disease - Family History Family History: States: Unknown Family Hx - Living Arrangements Living Arrangements: With Family - Social History Current smoker - smoking cessation education provided: No Alcohol: None Drugs: Denies - Immunization History Hx Influenza Vaccination: Yes Hx Pneumococcal Vaccination: Yes - Home Medications Home Medications: Ambulatory Orders Medication Instructions Recorded Mirtazapine [Remeron] 15 mg PO DAILY 10/13/17 Montelukast [Singulair] 10 mg PO DAILY 10/13/17 Pantoprazole [Protonix EC Tab] 40 mg PO DAILY #14 ect 10/18/17 Albuterol/Ipratropium [Duoneb 3 3 ml INH RQ4 neb 05/10/18 mg/0.5 mg (3 ml) UD] Docusate [Colace] 100 mg PO TID cap 05/10/18 Insulin Aspart, Recombinant 12 unit SC TIDAC unit 05/10/18 [Novolog] Insulin Glargine, Recombina 30 unit SC HS unit 05/10/18 [Lantus] Rivaroxaban [Xarelto] 20 mg PO DAILY #30 tab 05/10/18 Rosuvastatin Calcium [Crestor] 10 mg PO HS tab 05/10/18 Ticagrelor [Brilinta] 90 mg PO BID 30 Days tab 05/10/18 amLODIPine [Norvasc] 2.5 mg PO DAILY tab 05/10/18 hydroCHLOROthiazide [Microzide] 12.5 mg PO DAILY cap 05/10/18 oxyCODONE/Acetaminophen [Percocet 1 tab PO Q6H PRN tab 05/10/18 5/325 mg Tab] Budesonide [Pulmicort Respules] 0.5 mg IH RQ8 #30 neb 05/23/18 Fluticasone/Salmeterol 500/50 1 puff IH Q12 #1 puff 05/23/18 [Advair Diskus 500/50] - Allergies Allergies/Adverse Reactions: Allergies Allergy/AdvReac Type Severity Reaction Status Date / Time aspirin AdvReac RASH Verified 09/25/16 13:11 Review of Systems ROS Statement: Except As Marked, All Systems Reviewed And Found Negative Musculoskeletal: Positive for: Leg Pain Psych: Positive for: Anxiety Physical Exam - Reviewed Nursing Documentation Reviewed: Yes Vital Signs Reviewed: Yes - Physical Exam Appears: Positive for: Well, Non-toxic, No Acute Distress Head Exam: Positive for: ATRAUMATIC, NORMAL INSPECTION, NORMOCEPHALIC Skin: Positive for: Normal Color, Warm, DRY Eye Exam: Positive for: EOMI, Normal appearance, PERRL ENT: Positive for: Normal ENT Inspection Neck: Positive for: Normal, Painless ROM Cardiovascular/Chest: Positive for: Regular Rate, Rhythm Respiratory: Positive for: CNT, Normal Breath Sounds Gastrointestinal/Abdominal: Positive for: Normal Exam, Soft Back: Positive for: Normal Inspection Extremity: Positive for: Normal ROM, Other (DP pulses 2+ b/l). Negative for: Tenderness, Calf Tenderness, Deformity, Swelling Neurologic/Psych: Positive for: Alert, Oriented - Laboratory Results Result Diagrams: 04/29/18 18:39 04/29/18 18:39 - ECG O2 Sat by Pulse Oximetry: 100 Medical Decision Making Medical Decision Making: Pt appears to be anxious and is asking for something to "calm her nerves." pt medicated with Xanax Po Diagnostics ordered Case endorsed to JABARI Amin at 1999 pending diagnostic review and re-eval Disposition - Clinical Impression Clinical Impression: Anxiety, Leg pain - Patient ED Disposition Is Patient to be Admitted: Transfer of Care - Disposition Disposition: Transfer of Care Disposition Time: 20:00 Condition: STABLE Instructions: Peripheral Artery Disease and Claudication, Anxiety, Adult (DC) Forms: [employer] ([place])
[2018-04-29 18:46] LABS: BASO % 0.5 % (0.0-2.0); EOS # 0.1 K/uL (0.0-0.7); EOS % 1.2 % (0.0-4.0); HEMOGLOBIN 9.9 g/dL (12.0-16.0); LYMPH # 2.1 K/uL (1.0-4.3); LYMPH % 25.1 % (20.0-40.0); MEAN CELL VOLUME 88.4 fl (81.0-99.0); MEAN CORPUSCULAR HEMOGLOBIN 29.3 pg (27.0-31.0); MEAN CORPUSCULAR HGB CONC 33.1 g/dL (33.0-37.0); MEAN PLATELET VOLUME 8.8 fl (7.2-11.7); MONO % 12.3 % (0.0-10.0); NEUT # 5.1 K/uL (1.8-7.0); NEUT % 60.9 % (50.0-75.0); RBC 3.36 Mil/uL (3.80-5.20); RED CELL DISTRIBUTION WIDTH 14.1 % (11.5-14.5); WHITE BLOOD COUNT 8.4 K/uL (4.8-10.8)
[2018-04-29 18:52] LABS: SQUAMOUS EPITHIAL 8 /hpf (0-5); URINE BILIRUBIN NEGATIVE (NEGATIVE); URINE BLOOD NEGATIVE (NEGATIVE); URINE CLARITY SLIGHTY-CLOUDY (Clear); URINE COLOR STRAW (YELLOW); URINE GLUCOSE (UA) NEG (Normal); URINE LEUKOCYTE ESTERASE NEG Leu/uL (Negative); URINE PROTEIN NEGATIVE (NEGATIVE); URINE UROBILINOGEN 0.2-1.0 mg/dL (0.2-1.0)
[2018-04-29 18:56] LABS: INR 1.1; PROTHROMBIN TIME 12.4 Seconds (9.8-13.1)
[2018-04-29 18:59] LABS: PARTIAL THROMBOPLASTIN TIME 34.4 Seconds (25.6-37.1)
[2018-04-29 19:14] LABS: ALB/GLOB RATIO 1.3 (1.0-2.1); ALBUMIN 4.5 g/dL (3.5-5.0); ALT/SGPT 32 U/L (9-52); AST/SGOT 37 U/L (14-36); BLOOD UREA NITROGEN 30 mg/dl (7-17); CALCIUM 9.6 mg/dL (8.4-10.2); GFR NON-AFRICAN AMERICAN 34
[2018-04-29 19:58] VITALS: PULSE 98
[2018-04-29 20:08] VITALS: BP 117/46; RESP 17; TEMP 98.1
--- NOTE | 2018-04-30 07:57 | CARD ---
APPROVED REPORT Date of service: 04/29/2018 <Conclusion> Sinus tachycardia Nonspecific T wave abnormality Abnormal ECG
--- NOTE | 2018-04-30 08:58 | RAD ---
Date of service: 04/29/2018 HISTORY: med screening COMPARISON: Chest radiographs 10/13/2017. FINDINGS: LUNGS: No active pulmonary disease. PLEURA: No significant pleural effusion identified, no pneumothorax apparent. CARDIOVASCULAR: Normal. OSSEOUS STRUCTURES: No significant abnormalities. VISUALIZED UPPER ABDOMEN: Normal. OTHER FINDINGS: None. IMPRESSION: No interval acute cardiopulmonary disease appreciated.
--- NOTE | 2018-04-30 12:28 | US ---
Date of service: 04/29/2018 PROCEDURE: Right lower extremity venous duplex Doppler. HISTORY: r/o DVT COMPARISON: None available. TECHNIQUE: Common femoral, superficial femoral, popliteal and posterior tibial veins were evaluated. Flow was assessed with color Doppler, compressibility, assessment of phasic flow and augmentation response. FINDINGS: COMMON FEMORAL VEIN: Unremarkable. SUPERFICIAL FEMORAL VEIN: Unremarkable. POPLITEAL VEIN: Unremarkable. POSTERIOR TIBIAL VEIN: Unremarkable. OTHER FINDINGS: None. IMPRESSION: No evidence of deep venous thrombosis in the right lower extremity.
== END 2018-04-29 20:28 | disposition home or self-care (01) ==
LOC: H.ER 17:09
DX: M79.604 Pain in right leg (principal); F41.9 Anxiety disorder, unspecified; E05.00 Thyrotoxicosis with diffuse goiter without thyrotoxic crisis or storm; E11.9 Type 2 diabetes mellitus without complications; I10 Essential (primary) hypertension; Z79.4 Long term (current) use of insulin; I73.9 Peripheral vascular disease, unspecified

== ENCOUNTER 2018-05-05 11:13 | Emergency (ER) | payer MEDICARE, MEDICAID ==
[2018-05-05 11:18] VITALS: O2SAT 100; BMI 28.1
[2018-05-05 12:13] LABS: BASO # 0.1 K/uL (0.0-0.2); BASO % 0.9 % (0.0-2.0); EOS # 0.2 K/uL (0.0-0.7); HEMOGLOBIN 10.3 g/dL (12.0-16.0); LYMPH # 2.2 K/uL (1.0-4.3); LYMPH % 23.6 % (20.0-40.0); MEAN CELL VOLUME 89.2 fl (81.0-99.0); MEAN CORPUSCULAR HEMOGLOBIN 29.7 pg (27.0-31.0); MEAN CORPUSCULAR HGB CONC 33.3 g/dL (33.0-37.0); MEAN PLATELET VOLUME 8.9 fl (7.2-11.7); MONO % 10.4 % (0.0-10.0); NEUT # 5.8 K/uL (1.8-7.0); NEUT % 63.1 % (50.0-75.0); RBC 3.47 Mil/uL (3.80-5.20); RED CELL DISTRIBUTION WIDTH 14.1 % (11.5-14.5); WHITE BLOOD COUNT 9.2 K/uL (4.8-10.8)
[2018-05-05 12:22] LABS: PROTHROMBIN TIME 11.6 Seconds (9.8-13.1)
[2018-05-05 12:24] LABS: ALB/GLOB RATIO 1.3 (1.0-2.1); ALBUMIN 4.5 g/dL (3.5-5.0); CALCIUM 10.2 mg/dL (8.4-10.2)
[2018-05-05 12:25] LABS: PARTIAL THROMBOPLASTIN TIME 34.4 Seconds (25.6-37.1)
--- NOTE | 2018-05-05 13:55 | US ---
Date of service: 05/05/2018 PROCEDURE: Right lower extremity venous duplex Doppler. HISTORY: EVALUATE FOR EXTREME PAIN COMPARISON: Right lower extremity venous Doppler ultrasound dated 04/29/2018. TECHNIQUE: Common femoral, superficial femoral, popliteal and posterior tibial veins were evaluated. Flow was assessed with color Doppler, compressibility, assessment of phasic flow and augmentation response. FINDINGS: COMMON FEMORAL VEIN: Unremarkable. SUPERFICIAL FEMORAL VEIN: Unremarkable. POPLITEAL VEIN: Unremarkable. POSTERIOR TIBIAL VEIN: Unremarkable. OTHER FINDINGS: None. IMPRESSION: No evidence of deep venous thrombosis in the right lower extremity.
--- NOTE | 2018-05-05 13:59 | US ---
Date of service: 05/05/2018 PROCEDURE: Right lower extremity arterial Doppler ultrasound HISTORY: RIGHT LEG PAIN RIGHT LOWER EXTREMITY: RIGHT COMMON FEMORAL ARTERY: Diminished flow, but patent. Maximal flow velocity of 13.6 cm/s. RIGHT SUPERFICIAL FEMORAL ARTERY: * Proximal: Diminished flow, but patent. Maximal flow velocity of 40.5 cm/s. * Mid: Diminished flow, but patent. Maximal flow velocity of 23.5 cm/s. * Distal: Diminished flow, but patent. Maximal flow velocity of 15.5 cm/s. RIGHT POPLITEAL ARTERY: Diminished flow, but patent. Maximal flow velocity of 24.4 cm/s. RIGHT ANTERIOR TIBIAL ARTERY: No flow. RIGHT POSTERIOR TIBIAL ARTERY: No flow. RIGHT DORSALIS PEDIS ARTERY: No flow. OTHER FINDINGS: No flow visualized in the [id number] arteries. Diminished flow with decreased peak systolic velocities involving the right common femoral, superficial femoral and popliteal arteries may signify hemodynamically significant proximal aortoiliac disease.
[2018-05-05] MEDS ORDERED: Sodium Chloride 0.9% 1,000 ML IV STA (14:14)
--- NOTE | 2018-05-05 14:28 | ED PDOC ---
Lower Extremity Pain/Injury Time Seen by Provider: 05/05/18 11:38 Chief Complaint (Nursing): Lower Extremity Problem/Injury Chief Complaint (Provider): right leg pain History Per: Patient (77 y/o female h/o DM s/p peripheral vascular disease states she has had angioplasty 04/[address] Rodriges here with persistent leg pain. Denies any fvrs/chills. Notes pain has been persistent since procedure . Was seen in ED 04/29 for evaluation of doppler of leg negative for dvt. Notes additional h/o neuropathy ongoing and has had continued numbness/pain bilateral feet ongoing but feels right leg has been more painful than left since 04/19.) Past Medical History Reviewed: Historical Data, Nursing Documentation, Vital Signs Vital Signs: Last Vital Signs Temp 97 F L 05/05/18 11:17 Pulse 96 H 05/05/18 11:17 Resp BP 123/69 05/05/18 11:17 Pulse Ox 100 05/05/18 11:17 - Medical History PMH: Anemia, Anxiety, Arthritis, Asthma, COPD, Depression, Diabetes, Graves' Disease, HTN, Osteoporosis, Pneumonia Denies: CHF, Hypercholesterolemia, Hypothyroidism, Chronic Kidney Disease - Family History Family History: States: Unknown Family Hx - Immunization History Hx Influenza Vaccination: Yes Hx Pneumococcal Vaccination: Yes - Home Medications Home Medications: Ambulatory Orders Medication Instructions Recorded Clopidogrel [Plavix] 75 mg PO DAILY 10/13/17 Insulin Glargine, Recombina 15 unit SQ DAILY 10/13/17 [Lantus] Levocetirizine Dihydrochloride 5 mg PO DAILY 10/13/17 [Xyzal] Mirtazapine [Remeron] 15 mg PO DAILY 10/13/17 Montelukast [Singulair] 10 mg PO DAILY 10/13/17 Promethazine HCl/Codeine 5 ml PO Q4 PRN 10/13/17 [Prometh-Codein 6.25-10 mg/5 ml] Valsartan [Diovan] 320 mg PO DAILY 10/13/17 Loratadine [Claritin] 10 mg PO DAILY #14 tab 10/18/17 Pantoprazole [Protonix] 40 mg PO DAILY #14 ect 10/18/17 predniSONE [predniSONE Tab] 30 mg PO DAILY #24 tab 10/18/17 Ibuprofen [Motrin] 600 mg PO Q6 #20 tab 04/29/18 - Allergies Allergies/Adverse Reactions: Allergies Allergy/AdvReac Type Severity Reaction Status Date / Time aspirin AdvReac RASH Verified 09/25/16 13:11 Review of Systems ROS Statement: Except As Marked, All Systems Reviewed And Found Negative Physical Exam - Reviewed Nursing Documentation Reviewed: Yes Vital Signs Reviewed: Yes - Physical Exam Appears: Positive for: Well, Non-toxic, No Acute Distress Head Exam: Positive for: ATRAUMATIC, NORMAL INSPECTION, NORMOCEPHALIC Skin: Positive for: Normal Color, Warm, DRY Eye Exam: Positive for: EOMI, Normal appearance, PERRL ENT: Positive for: Normal ENT Inspection Neck: Positive for: Normal, Painless ROM Cardiovascular/Chest: Positive for: Regular Rate, Rhythm Respiratory: Positive for: CNT, Normal Breath Sounds Gastrointestinal/Abdominal: Positive for: Normal Exam, Soft Back: Positive for: Normal Inspection Extremity: Positive for: Normal ROM, Other (right foot no dopplerable pulse noted dp/pt. temperature equal) Neurologic/Psych: Positive for: Alert, Oriented - Laboratory Results Result Diagrams: 05/05/18 12:06 05/05/18 12:06 - ECG O2 Sat by Pulse Oximetry: 100 - Progress ED Course And Treament: duplex arterial: OTHER FINDINGS: No flow visualized in the [id number] arteries. Diminished flow with decreased peak systolic velocities involving the right common femoral , superficial femoral and popliteal arteries may signify hemodynamically significant proximal aortoiliac disease. duplex venous IMPRESSION: No evidence of deep venous thrombosis in the right lower extremity. Patient evaluated with Dr. Waldrop at bedside. HEPARIN 6000 UNITS BOLUS 14:20 HEPARIN 14 ML PER HOUR ORDERED D/W DR. ALCANTAR FOR ADMISSION. REQUESTS VASCULAR CONSULT WELL. CALL PLACED DR. HERNANDEZ D/W DR. ZAVALA at 14:45. RECOMMENDS CTA LOWER EXTREMITIES. FINDINGS: CT ANGIOGRAPHY: ABDOMINAL AORTA:: Calcific atherosclerosis involving the aorta, iliacs in bilateral lower extremity arteries MAJOR AORTIC BRANCHES: Celiac [place]: Mild ostial stenosis. Superior mesenteric artery: Mild ostial stenosis. Inferior mesenteric artery: Patent. Renal arteries: Patent. PELVIC ARTERIES: Right Common Iliac: Patent. Right External Iliac: Occluded distally. Right Internal Iliac: Patent. Left Common Iliac: Patent. Left External Iliac: Patent. Left Internal Iliac: Patent. RIGHT LOWER EXTREMITY ARTERIES: Right Common Femoral: Short segment proximal occlusion then reconstitutes. Right Superficial Femoral: Multifocal areas of markedly severe stenosis. Right Profunda Femoris: Patent with multifocal areas of mild to moderate stenosis. Right Popliteal:Multifocal areas of markedly severe stenosis. Right Anterior Tibial: Questionable patency proximally, then occluded. Right Tibioperoneal Trunk: Severely stenotic. Right Posterior Tibial: Difficult to evaluate proximal/mid portions due to heavy calcific atherosclerosis. Definitively occluded in the mid/distal portions. Right Peroneal: Difficult to evaluate proximal/mid portions due to heavy calcific atherosclerosis. Definitively occluded in the mid/distal portions. Right dorsalis pedis : Occluded. LEFT LOWER EXTREMITY ARTERIES: Left Common Femoral: Patent. Left Superficial Femoral: Indwelling proximal/mid stent, patent. Multifocal moderate stenoses. Left Profunda Femoris: Unremarkable. Left Popliteal: Multifocal mild to moderate stenoses. Left Anterior Tibial: Multifocal tandem stenosis, but patent. Left Tibioperoneal Trunk: Patent. Left Posterior Tibial: Difficult to evaluate proximal/mid portions due to heavy calcific atherosclerosis. Definitively occluded in the mid/distal portions. Left Peronea: Difficult to evaluate proximal/mid portions due to heavy calcific atherosclerosis. Possibly patent in the distal portion. Left Dorsalis pedis: Patent. NON-ANGIOGRAPHIC ASPECT OF THE EXAM: LOWER THORAX: Cardiomegaly. LIVER: Hepatic steatosis. No gross lesion or ductal dilatation. GALLBLADDER AND BILE DUCTS: Unremarkable. PANCREAS: Unremarkable. No gross lesion or ductal dilatation. SPLEEN: Unremarkable. ADRENALS: Unremarkable. No mass. KIDNEYS AND URETERS: Unremarkable. No hydronephrosis. No solid mass. STOMACH AND BOWEL: Small hiatal hernia. No obstruction. No gross mural thickening. APPENDIX: No findings to suggest acute appendicitis. PERITONEUM: Unremarkable. No free fluid. No free air. LYMPH NODES: Unremarkable. No enlarged lymph nodes. BLADDER: Distended. REPRODUCTIVE: Unremarkable. BONES: No acute fracture. Degenerative changes OTHER FINDINGS: None. IMPRESSION: Diffuse calcific atherosclerosis. No aortic aneurysm, stenosis or occlusion. Right lower extremity arteries: Short segment occlusion of the distal external iliac artery extending to the proximal common femoral artery. Multifocal areas of severe stenosis of the superficial femoral and popliteal arteries as well as the tibioperoneal trunk. This partial patency of the proximal anterior tibial artery which then occludes. The evaluation of the proximal/mid posterior tibial and peroneal artery cyst difficult due to heavy calcific atherosclerosis , but the mid/ distal portions are not definitively excluded. Left lower extremity arteries: Indwelling proximal/ mid superficial femoral artery stent which is patent. Multifocal areas of moderate stenoses involving the superficial femoral artery with mild to moderate stenoses of the popliteal artery. Tandem stenosis of the anterior tibial artery which is patent. Posterior tibial artery is definitively occluded distally, with difficult evaluation proximally due to heavy calcific atherosclerosis. The (artery is questionably patent distally. Additional findings as above. d/w Abimael Hewitt who is currently away on vacation but states 04/19 patient had diagnostic angiogram no intervention at that time. CTA results d/w Dr. Zavala, who will come to ED to evaluate patient. Seen by Dr. Zavala in ED 18:55. Patient to be transferred to [facility] for emergent intervention of arterial occlusion. d/w Dr. Arnaud Blanco, hospitalist who will help arrange cardiac laboratory technical specialist for procedure. d/w Dr. Cruz ED physician who is aware of patient. Patient to transfer to cardiac cath for emergent intervention. - Critical Care Total Time (In Min): 45 Documented Critical Care: Time excludes all time spent performint seperately billable procedures Disposition - Clinical Impression Clinical Impression: Peripheral artery occlusion - Patient ED Disposition Is Patient to be Admitted: Transfer of Care - Disposition Disposition: Other Institution Disposition Time: 20:00 Condition: FAIR Forms: [employer] (Hungarian)
[2018-05-05] MEDS ORDERED: Heparin25000 units/250ml 1/2NS 25,000 UNITS/250 ML BAG IV ONE (15:00)
[2018-05-05] MEDS ORDERED: Iodixanol 320 MG/ML 100 ML BOTTLE IV ONE (15:53)
[2018-05-05] MEDS ORDERED: Sodium Chloride 0.9% 50 ML IV ONE (15:53)
--- NOTE | 2018-05-05 17:16 | CT ---
Date of service: 05/05/2018 PROCEDURE: CT Angiography Abdomen, Pelvis and Lower Extremity with Contrast HISTORY: R lower ext arterial occlusion COMPARISON: None. TECHNIQUE: Technique: CT angiography of the abdomen, pelvis and bilateral lower extremities performed in the arterial phase of enhancement. Coronal and sagittal reformats, and well as rotating MIP images of the vessels generated at the workstation. Intravenous contrast dose: 99 mL Visipaque 320 Radiation dose: Total exam DLP = 2072.9 mGy-cm. This CT exam was performed using one or more of the following dose reduction techniques: Automated exposure control, adjustment of the mA and/or kV according to patient size, and/or use of iterative reconstruction technique. FINDINGS: CT ANGIOGRAPHY: ABDOMINAL AORTA:: Calcific atherosclerosis involving the aorta, iliacs in bilateral lower extremity arteries MAJOR AORTIC BRANCHES: Celiac [place]: Mild ostial stenosis. Superior mesenteric artery: Mild ostial stenosis. Inferior mesenteric artery: Patent. Renal arteries: Patent. PELVIC ARTERIES: Right Common Iliac: Patent. Right External Iliac: Occluded distally. Right Internal Iliac: Patent. Left Common Iliac: Patent. Left External Iliac: Patent. Left Internal Iliac: Patent. RIGHT LOWER EXTREMITY ARTERIES: Right Common Femoral: Short segment proximal occlusion then reconstitutes. Right Superficial Femoral: Multifocal areas of markedly severe stenosis. Right Profunda Femoris: Patent with multifocal areas of mild to moderate stenosis. Right Popliteal:Multifocal areas of markedly severe stenosis. Right Anterior Tibial: Questionable patency proximally, then occluded. Right Tibioperoneal Trunk: Severely stenotic. Right Posterior Tibial: Difficult to evaluate proximal/mid portions due to heavy calcific atherosclerosis. Definitively occluded in the mid/distal portions. Right Peroneal: Difficult to evaluate proximal/mid portions due to heavy calcific atherosclerosis. Definitively occluded in the mid/distal portions. Right dorsalis pedis : Occluded. LEFT LOWER EXTREMITY ARTERIES: Left Common Femoral: Patent. Left Superficial Femoral: Indwelling proximal/mid stent, patent. Multifocal moderate stenoses. Left Profunda Femoris: Unremarkable. Left Popliteal: Multifocal mild to moderate stenoses. Left Anterior Tibial: Multifocal tandem stenosis, but patent. Left Tibioperoneal Trunk: Patent. Left Posterior Tibial: Difficult to evaluate proximal/mid portions due to heavy calcific atherosclerosis. Definitively occluded in the mid/distal portions. Left Peronea: Difficult to evaluate proximal/mid portions due to heavy calcific atherosclerosis. Possibly patent in the distal portion. Left Dorsalis pedis: Patent. NON-ANGIOGRAPHIC ASPECT OF THE EXAM: LOWER THORAX: Cardiomegaly. LIVER: Hepatic steatosis. No gross lesion or ductal dilatation. GALLBLADDER AND BILE DUCTS: Unremarkable. PANCREAS: Unremarkable. No gross lesion or ductal dilatation. SPLEEN: Unremarkable. ADRENALS: Unremarkable. No mass. KIDNEYS AND URETERS: Unremarkable. No hydronephrosis. No solid mass. STOMACH AND BOWEL: Small hiatal hernia. No obstruction. No gross mural thickening. APPENDIX: No findings to suggest acute appendicitis. PERITONEUM: Unremarkable. No free fluid. No free air. LYMPH NODES: Unremarkable. No enlarged lymph nodes. BLADDER: Distended. REPRODUCTIVE: Unremarkable. BONES: No acute fracture. Degenerative changes OTHER FINDINGS: None. IMPRESSION: Diffuse calcific atherosclerosis. No aortic aneurysm, stenosis or occlusion. Right lower extremity arteries: Short segment occlusion of the distal external iliac artery extending to the proximal common femoral artery. Multifocal areas of severe stenosis of the superficial femoral and popliteal arteries as well as the tibioperoneal trunk. This partial patency of the proximal anterior tibial artery which then occludes. The evaluation of the proximal/mid posterior tibial and peroneal artery cyst difficult due to heavy calcific atherosclerosis, but the mid/ distal portions are not definitively excluded. Left lower extremity arteries: Indwelling proximal/ mid superficial femoral artery stent which is patent. Multifocal areas of moderate stenoses involving the superficial femoral artery with mild to moderate stenoses of the popliteal artery. Tandem stenosis of the anterior tibial artery which is patent. Posterior tibial artery is definitively occluded distally, with difficult evaluation proximally due to heavy calcific atherosclerosis. The (artery is questionably patent distally. Additional findings as above.
[2018-05-05] MEDS ORDERED: Morphine 4 MG/ML VIAL IVP ONE ×2 (18:18→19:28)
[2018-05-05] MEDS ORDERED: Heparin 25,000units in D5W 25,000 UNITS/250 ML BAG IV ONE (19:02)
--- NOTE | 2018-05-05 19:54 | ED PDOC ---
Lower Extremity Pain/Injury Time Seen by Provider: 05/05/18 11:38 Chief Complaint (Nursing): Lower Extremity Problem/Injury Past Medical History Vital Signs: Last Vital Signs Temp 97 F L 05/05/18 11:17 Pulse 96 H 05/05/18 11:17 Resp BP 123/69 05/05/18 11:17 Pulse Ox 100 05/05/18 19:50 - Medical History PMH: Anemia, Anxiety, Arthritis, Asthma, COPD, Depression, Diabetes, Graves' Disease, HTN, Osteoporosis, Pneumonia Denies: CHF, Hypercholesterolemia, Hypothyroidism, Chronic Kidney Disease - Family History Family History: States: Unknown Family Hx - Immunization History Hx Influenza Vaccination: Yes Hx Pneumococcal Vaccination: Yes - Home Medications Home Medications: Ambulatory Orders Medication Instructions Recorded Clopidogrel [Plavix] 75 mg PO DAILY 10/13/17 Insulin Glargine, Recombina 15 unit SQ DAILY 10/13/17 [Lantus] Levocetirizine Dihydrochloride 5 mg PO DAILY 10/13/17 [Xyzal] Mirtazapine [Remeron] 15 mg PO DAILY 10/13/17 Montelukast [Singulair] 10 mg PO DAILY 10/13/17 Promethazine HCl/Codeine 5 ml PO Q4 PRN 10/13/17 [Prometh-Codein 6.25-10 mg/5 ml] Valsartan [Diovan] 320 mg PO DAILY 10/13/17 Loratadine [Claritin] 10 mg PO DAILY #14 tab 10/18/17 Pantoprazole [Protonix] 40 mg PO DAILY #14 ect 10/18/17 predniSONE [predniSONE Tab] 30 mg PO DAILY #24 tab 10/18/17 Ibuprofen [Motrin] 600 mg PO Q6 #20 tab 04/29/18 - Allergies Allergies/Adverse Reactions: Allergies Allergy/AdvReac Type Severity Reaction Status Date / Time aspirin AdvReac RASH Verified 09/25/16 13:11 - Laboratory Results Result Diagrams: 05/05/18 12:06 05/05/18 12:06 - ECG O2 Sat by Pulse Oximetry: 100 Medical Decision Making Medical Decision Makin77 year old female s/p peripheral angiogram by Dr.Raashan Rodriges at [facility] on developed severe right leg pains post procedure. Was seen by him in office a week after procedure and then came to the ED last week for similar pains. Today came with worsening pain and cold RLE ongoing for 2-3 hours pre- presentation. CTA done showing occluded [employer] with cold RLE below the knee discussed her findings with OTP and with will need emergent evaluation and possible revascularization endovascularly or surgical for limb salvage transfer to [facility] Disposition - Clinical Impression Clinical Impression: Peripheral artery occlusion - Disposition Disposition: Transfer of Care Disposition Time: 20:00 Condition: FAIR
[2018-05-05 19:57] VITALS: BP 125/65; PULSE 111; RESP 16; TEMP 98.3
== END 2018-05-05 19:58 | disposition short-term general hospital (02) ==
LOC: H.ER 11:13
DX: I77.9 Disorder of arteries and arterioles, unspecified (principal); E05.00 Thyrotoxicosis with diffuse goiter without thyrotoxic crisis or storm; E11.9 Type 2 diabetes mellitus without complications; Z86.59 Personal history of other mental and behavioral disorders; I10 Essential (primary) hypertension; J44.9 Chronic obstructive pulmonary disease, unspecified; M81.0 Age-related osteoporosis without current pathological fracture; Z79.4 Long term (current) use of insulin
CPT/HCPCS: 73706; 80053; 82948; 85025; 85610; 85730; 93926; 93971; 96374; 96375; 96376; 99284; J1644; J2270; J2405; J7030; Q9967

== ENCOUNTER 2018-05-18 22:55 | Inpatient (IN) | payer MEDICARE, MEDICAID ==
[2018-05-18 22:56] VITALS: BMI 28.1
[2018-05-18] MEDS ORDERED: Albuterol-Ipratrop 3 mg / 0.5 (3 ml) UD INH STA (23:32)
--- NOTE | 2018-05-18 23:35 | ED PDOC ---
HPI: SOB/CHF/COPD Time Seen by Provider: 05/18/18 23:14 Chief Complaint (Nursing): Shortness Of Breath Chief Complaint (Provider): COUGH/SOB History Per: Patient (78 Y/O FEMALE RECENT SX FOR PERIPHERAL ARTERIAL OCCLUSION RIGHT LEG 2 WEEKS PRIOR HERE FROM [facility] FOR EVALUATION OF ONGOING COUGH. DENIES ANY FEVERS/CHILLS. HAS H/O COPD. SENT BY DR. ALCANTAR FOR ADMISSION AND TREATMENT OF COPD EXACERBATION. NOTED TO HAVE POSITIVE SPUTUM CX GRAM POS COCCI IN CLUSTER.) Past Medical History Reviewed: Historical Data, Nursing Documentation, Vital Signs Vital Signs: Last Vital Signs Temp 98.1 F 05/18/18 23:08 Pulse 111 H 05/19/18 00:50 Resp 23 05/18/18 23:17 BP 148/70 05/18/18 23:08 Pulse Ox 100 05/18/18 23:36 - Medical History PMH: Anemia, Anxiety, Arthritis, Asthma, COPD, Depression, Diabetes, Graves' Disease, HTN, Osteoporosis, Pneumonia Denies: CHF, Hypercholesterolemia, Hypothyroidism, Chronic Kidney Disease - Family History Family History: States: Unknown Family Hx - Immunization History Hx Influenza Vaccination: Yes Hx Pneumococcal Vaccination: Yes - Home Medications Home Medications: Ambulatory Orders Medication Instructions Recorded Mirtazapine [Remeron] 15 mg PO DAILY 10/13/17 Montelukast [Singulair] 10 mg PO DAILY 10/13/17 Pantoprazole [Protonix EC Tab] 40 mg PO DAILY #14 ect 10/18/17 Albuterol/Ipratropium [Duoneb 3 3 ml INH RQ4 neb 05/10/18 mg/0.5 mg (3 ml) UD] Docusate [Colace] 100 mg PO TID cap 05/10/18 Insulin Aspart, Recombinant 12 unit SC TIDAC unit 05/10/18 [Novolog] Insulin Glargine, Recombina 30 unit SC HS unit 05/10/18 [Lantus] Rivaroxaban [Xarelto] 20 mg PO DAILY #30 tab 05/10/18 Rosuvastatin Calcium [Crestor] 10 mg PO HS tab 05/10/18 Ticagrelor [Brilinta] 90 mg PO BID 30 Days tab 05/10/18 amLODIPine [Norvasc] 2.5 mg PO DAILY tab 05/10/18 hydroCHLOROthiazide [Microzide] 12.5 mg PO DAILY cap 05/10/18 oxyCODONE/Acetaminophen [Percocet 1 tab PO Q6H PRN tab 05/10/18 5/325 mg Tab] - Allergies Allergies/Adverse Reactions: Allergies Allergy/AdvReac Type Severity Reaction Status Date / Time aspirin AdvReac RASH Verified 09/25/16 13:11 Review of Systems ROS Statement: Except As Marked, All Systems Reviewed And Found Negative Physical Exam - Reviewed Nursing Documentation Reviewed: Yes Vital Signs Reviewed: Yes - Physical Exam Appears: Positive for: Well, Non-toxic, No Acute Distress Head Exam: Positive for: ATRAUMATIC, NORMAL INSPECTION, NORMOCEPHALIC Skin: Positive for: Normal Color, Warm, DRY Eye Exam: Positive for: EOMI, Normal appearance, PERRL ENT: Positive for: Normal ENT Inspection Neck: Positive for: Normal, Painless ROM Cardiovascular/Chest: Positive for: Regular Rate, Rhythm Respiratory: Positive for: Normal Breath Sounds, Rales (LEFT SIDED) Gastrointestinal/Abdominal: Positive for: Normal Exam, Soft Back: Positive for: Normal Inspection Extremity: Positive for: Normal ROM Neurologic/Psych: Positive for: Alert, Oriented - Laboratory Results Result Diagrams: 05/19/18 00:00 05/19/18 00:00 - ECG O2 Sat by Pulse Oximetry: 100 - Progress ED Course And Treament: D/W DR. ALCANTAR. RECOMMENDS SOLUMEDROL AND IV ANTIBIOTICS AT THIS TIME. DUONEB X 1 DOSE SOLUMEDROL 125 MG IV X 1 DOSE VANCOMYCIN 1 GM IV X 1 DOSE Disposition - Clinical Impression Clinical Impression: COPD (chronic obstructive pulmonary disease) - Patient ED Disposition Is Patient to be Admitted: Yes - Disposition Disposition Time: :13 Condition: FAIR - Pt Status Changed To: Hospital Disposition Of: Inpatient - Admit Certification Admit to Inpatient:: After my assessment, the patient will require hospitalization for at least two midnights. This is because of the severity of symptoms shown, intensity of services needed, and/or the medical risk in this patient being treated as an outpatient.
[2018-05-18] MEDS ORDERED: Albuterol-Ipratrop 3 mg / 0.5 (3 ml) UD ONE (23:49)
[2018-05-19 00:09] LABS: BASO # 0.1 K/uL (0.0-0.2); BASO % 0.7 % (0.0-2.0); EOS # 1.2 K/uL (0.0-0.7); EOS % 10.7 % (0.0-4.0); HEMOGLOBIN 8.9 g/dL (12.0-16.0); LYMPH # 2.4 K/uL (1.0-4.3); LYMPH % 21.3 % (20.0-40.0); MEAN CELL VOLUME 88.8 fl (81.0-99.0); MEAN CORPUSCULAR HGB CONC 32.7 g/dL (33.0-37.0); MEAN PLATELET VOLUME 8.9 fl (7.2-11.7); MONO % 9.1 % (0.0-10.0); NEUT # 6.6 K/uL (1.8-7.0); NEUT % 58.2 % (50.0-75.0); RBC 3.06 Mil/uL (3.80-5.20); RED CELL DISTRIBUTION WIDTH 14.1 % (11.5-14.5); WHITE BLOOD COUNT 11.3 K/uL (4.8-10.8)
[2018-05-19 00:11] LABS: VENOUS BLOOD GAS PCO2 44 mmHg (40-60); VENOUS BLOOD GAS PO2 30 mm/Hg (30-55); VENOUS BLOOD PH 7.41 (7.32-7.43)
[2018-05-19 00:20] LABS: ALB/GLOB RATIO 1.2 (1.0-2.1); ALBUMIN 4.3 g/dL (3.5-5.0); ALT/SGPT 33 U/L (9-52); AST/SGOT 40 U/L (14-36); BLOOD UREA NITROGEN 33 mg/dl (7-17); CALCIUM 9.6 mg/dL (8.4-10.2); GFR NON-AFRICAN AMERICAN 34
[2018-05-19 00:31] LABS: B-TYPE NATRIURETIC PEPTIDE 42.3 pg/ml (0-900)
[2018-05-19] MEDS ORDERED: Vancomycin 1 g Inj ONE (01:27)
[2018-05-19] MEDS: Oxycodone/Acetaminophen 5/325 mg Tab PO PRN ×3 (03:05→21:00)
[2018-05-19] MEDS: Albuterol-Ipratrop 3 mg / 0.5 (3 ml) UD INH SCH ×6 (05:04→23:13)
--- NOTE | 2018-05-19 08:18 | CARD ---
APPROVED REPORT Date of service: 05/19/2018 <Conclusion> Sinus tachycardia Nonspecific ST and T wave abnormality Abnormal ECG
[2018-05-19] MEDS: Insulin Lispro (humaLOG) 100 Units/ml Inj SC SCH ×4 (08:26→22:17)
[2018-05-19] MEDS ORDERED: methylPREDNISolone 40 MG in Sodium Chloride 0.9% 50 ML IV SCH (09:00)
[2018-05-19] MEDS: MethylPREDNISolone 40 mg Vial IVP SCH ×2 (12:50→17:57)
--- NOTE | 2018-05-19 13:27 | CP.PCM.HP ---
History of Present Illness - History of Present Illness History of Present Illness: CC: SOB. 78 y/o F, referred by me to ER Jordan DO on 05/18/18 via EMS from [facility] to be evaluated for increased SOB on DOA associated to paroxysmal dry cough, chest congestion and wheezing with no relief. Pt with multiple chronic medical conditions including COPD, Asthma, HTN, DMII, Hx of recent R Femoral Endarterectomy [facility] Dr Zavala, after discharge from [facility], patient was admitted to [facility] for [facility] , she was seen by me in this facility on 05/18/18 , Patient with paroxismal cough and wheezing and was referred to ER HUM and AD. Worsening symptoms: C/O of generalized body pain, R foot pain. Aggravated factor: Movements/exercise. Pt denied: Fever, chills, n/v/d, abdominal pain, urinary symptoms, CP, syncope , bloody cough, sick cntact, recent travel out of [facility]. CXR: Mild bibasilar atelectasis. EKG: Sinus tachycardia. Present on Admission - Present on Admission Any Indicators Present on Admission: Yes History of DVT/PE: Yes History of Uncontrolled Diabetes: Yes Review of Systems - Constitutional Constitutional: Weakness - EENT Eyes: Other (negative) Ears: Other (negative) Nose/Mouth/Throat: Other - Cardiovascular Cardiovascular: Rapid Heart Rate - Respiratory Respiratory: Cough, Dyspnea, Wheezing, Chest Congestion - Gastrointestinal Gastrointestinal: Other (negative) - Genitourinary Genitourinary: Other (negative) - Musculoskeletal Musculoskeletal: Arthralgias, Back Pain, Limited Range of Motion, Myalgias - Integumentary Integumentary: Other (negative) - Neurological Neurological: Other (negative) - Psychiatric Psychiatric: Anxiety - Endocrine Endocrine: Other (negative) - Hematologic/Lymphatic Hematologic: Other (negative) Past Patient History - Infectious Disease Hx of Infectious Diseases: None - Tetanus Immunizations Tetanus Immunization: Unknown - Past Medical History & Family History Past Medical History?: Yes Pertinent Family History: Unknown - Past Social History Smoking Status: Former Smoker Alcohol: None Drugs: Denies Home Situation {Lives}: With Family - CARDIAC Hx Cardiac Disorders: Yes Hx Congestive Heart Failure: Yes Hx Hypercholesterolemia: Yes Hx Hypertension: Yes - PULMONARY Hx Respiratory Disorders: Yes Hx Asthma: Yes Hx Chronic Obstructive Pulmonary Disease (COPD): Yes Hx Pneumonia: Yes - NEUROLOGICAL Hx Neurological Disorder: No Other/Comment: DM Neuropathy - HEENT Hx HEENT Problems: Yes (Allergic Rhinitis.) - RENAL Hx Chronic Kidney Disease: No - ENDOCRINE/METABOLIC Hx Endocrine Disorders: Yes Hx Diabetes Mellitus Type 2: Yes - HEMATOLOGICAL/ONCOLOGICAL Hx Blood Disorders: Yes Hx Anemia: Yes - INTEGUMENTARY Hx Dermatological Problems: No - MUSCULOSKELETAL/RHEUMATOLOGICAL Hx Musculoskeletal Disorders: Yes Hx Arthritis: Yes Hx Falls: No Hx Osteoporosis: Yes - GASTROINTESTINAL Hx Gastrointestinal Disorders: No - GENITOURINARY/GYNECOLOGICAL Hx Genitourinary Disorders: No - PSYCHIATRIC Hx Psychophysiologic Disorder: Yes Hx Anxiety: Yes Hx Depression: Yes Hx Substance Use: No - SURGICAL HISTORY Hx Surgeries: Yes Hx Angiogram: Yes (Angiogram lower extremities Dr Rodriges) Hx Orthopedic Surgery: Yes (left arm surgery) Other/Comment: R Femoral atherectomy and angioplasty Dr Zavala - ANESTHESIA Hx Anesthesia: Yes Hx Anesthesia Reactions: No Hx Malignant Hyperthermia: No Meds Allergies/Adverse Reactions: Allergies Allergy/AdvReac Type Severity Reaction Status Date / Time aspirin AdvReac RASH Verified 09/25/16 13:11 Physical Exam - Constitutional Appears: No Acute Distress - Head Exam Head Exam: NORMAL INSPECTION - Eye Exam Eye Exam: PERRL - ENT Exam ENT Exam: Normal Exam - Neck Exam Neck exam: Positive for: Normal Inspection - Respiratory Exam Respiratory Exam: Decreased Breath Sounds, Wheezes - Cardiovascular Exam Cardiovascular Exam: REGULAR RHYTHM - GI/Abdominal Exam GI & Abdominal Exam: Normal Bowel Sounds - Extremities Exam Extremities exam: Positive for: tenderness (knees, shoulders, R foot) - Back Exam Back exam: tenderness - Neurological Exam Neurological exam: Alert, CN II-XII Intact Additional comments: no focal motor deficit, decreased sensation distal legs, unsteady gait - Psychiatric Exam Psychiatric exam: Anxious - Skin Skin Exam: Warm Results - Vital Signs Recent Vital Signs: Last Vital Signs Temp 97.5 F L 05/19/18 08:32 Pulse 88 05/19/18 08:32 Resp 20 05/19/18 08:32 BP 126/69 05/19/18 08:32 Pulse Ox 96 05/19/18 08:32 reviewed Arie - Labs Result Diagrams: 05/21/18 08:31 05/21/18 08:31 Labs: Laboratory Results - last 24 hr 05/18/18 05/19/18 05/19/18 23:51 00:00 00:00 WBC 11.3 H RBC 3.06 L Hgb 8.9 L Hct 27.2 L MCV 88.8 MCH 29.0 MCHC 32.7 L RDW 14.1 Plt Count 346 MPV 8.9 Neut % (Auto) 58.2 Lymph % (Auto) 21.3 [place] % (Auto) 9.1 Eos % (Auto) 10.7 H Baso % (Auto) 0.7 Neut # (Auto) 6.6 Lymph # (Auto) 2.4 [place] # (Auto) 1.0 H Eos # (Auto) 1.2 H Baso # (Auto) 0.1 pO2 30 VBG pH 7.41 VBG pCO2 44 VBG HCO3 26.8 VBG Total CO2 29.3 H VBG O2 Sat (Calc) 63.2 VBG Base Excess 3.0 H VBG Potassium 4.1 Sodium 134.0 136 Chloride 102.0 101 Glucose 227 H Lactate 1.1 FiO2 21.0 Potassium 4.5 Carbon Dioxide 26 Anion Gap 14 BUN 33 H Creatinine 1.5 H Est GFR ( Amer) 41 Est GFR (Non-Af Amer) 34 POC Glucose (mg/dL) Random Glucose 226 H Calcium 9.6 Total Bilirubin 0.4 AST 40 H ALT 33 Alkaline Phosphatase 81 Troponin I < 0.0120 NT-Pro-B Natriuret Pep 42.3 Total Protein 7.8 Albumin 4.3 Globulin 3.6 Albumin/Globulin Ratio 1.2 Venous Blood Potassium 4.1 05/19/18 05/19/18 00:00 06:29 WBC RBC Hgb Hct MCV MCH MCHC RDW Plt Count MPV Neut % (Auto) Lymph % (Auto) [place] % (Auto) Eos % (Auto) Baso % (Auto) Neut # (Auto) Lymph # (Auto) [place] # (Auto) Eos # (Auto) Baso # (Auto) pO2 VBG pH VBG pCO2 VBG HCO3 VBG Total CO2 VBG O2 Sat (Calc) VBG Base Excess VBG Potassium Sodium Chloride Glucose Lactate FiO2 Potassium Carbon Dioxide Anion Gap BUN Creatinine Est GFR ( Amer) Est GFR (Non-Af Amer) POC Glucose (mg/dL) 255 H 334 H Random Glucose Calcium Total Bilirubin AST ALT Alkaline Phosphatase Troponin I NT-Pro-B Natriuret Pep Total Protein Albumin Globulin Albumin/Globulin Ratio Venous Blood Potassium reviewed J.P. - EKG Data EKG comments: reviewed J.P. - Imaging and Cardiology Chest x-ray Status: Report reviewed by me (Arie) Assessment & Plan (1) COPD exacerbation Status: Acute Priority: High (2) DMII (diabetes mellitus, type 2) Status: Acute Priority: High (3) Hyperglycemia Status: Acute Priority: High (4) HTN (hypertension) Status: Acute (5) History of atherectomy Assessment and Plan: atherectomy and angioplasty Right femoral Status: Acute Priority: High (6) PVD (peripheral vascular disease) Status: Acute Priority: High (7) DM neuropathy, type II diabetes mellitus Status: Chronic (8) Osteoarthritis Status: Chronic - Assessment and Plan (Free Text) Plan: DuoNeb, Solu Medrol, Prometh with Codeine, Brilinta , Humalog, Levemir, Percocet and rest of treatment - Date & Time Date: 05/19/18
--- NOTE | 2018-05-19 16:20 | RAD ---
Date of service: 05/18/2018 HISTORY: R/O PNEUMONIA COMPARISON: Comparison made with chest radiograph 04/29/2018. FINDINGS: LUNGS: Poor inspiration with low lung volumes, crowded bronchovascular markings and mild bibasilar atelectasis. PLEURA: No significant pleural effusion identified, no pneumothorax apparent. CARDIOVASCULAR: Mild cardiomegaly. OSSEOUS STRUCTURES: No significant abnormalities. VISUALIZED UPPER ABDOMEN: Normal. OTHER FINDINGS: None. IMPRESSION: Poor inspiration with low lung volumes, crowded bronchovascular markings and mild bibasilar atelectasis.
[2018-05-19] MEDS ORDERED: Insulin Lispro (humaLOG) 100 Units/ml Inj SC SCH (16:30)
[2018-05-19] MEDS: Pantoprazole 40 mg EC Tab PO SCH (19:11)
[2018-05-19] MEDS: Promethazine/Cod 6.25mg-10mg/5ml Syr UD PO PRN (20:22)
[2018-05-19] MEDS ORDERED: Insulin Detemir 100 Units/ml Inj SC SCH (22:00)
[2018-05-19] MEDS ORDERED: Patient's Own Med (Rosuvastatin Calcium [Crestor] 10 MG) PO SCH (22:00)
[2018-05-19] MEDS ORDERED: Patient's Own Med (Insulin Glargine, Recombina [Lantus] 30 UNIT) SC SCH (22:00)
[2018-05-19] MEDS: Insulin Detemir 100 Units/ml Inj SC SCH (22:14)
[2018-05-20] MEDS ORDERED: Insulin Lispro (humaLOG) 100 Units/ml Inj SC STA (00:46)
[2018-05-20] MEDS: MethylPREDNISolone 40 mg Vial IVP SCH ×3 (00:50→16:38)
[2018-05-20] MEDS: Promethazine/Cod 6.25mg-10mg/5ml Syr UD PO PRN (02:50)
[2018-05-20] MEDS: Albuterol-Ipratrop 3 mg / 0.5 (3 ml) UD INH SCH ×6 (04:23→23:22)
[2018-05-20] MEDS ORDERED: Benzocaine/Menthol (Cepacol) Lozenge PO ONE (05:04)
[2018-05-20] MEDS: Insulin Lispro (humaLOG) 100 Units/ml Inj SC SCH ×7 (09:00→21:51)
[2018-05-20] MEDS: Pantoprazole 40 mg EC Tab PO SCH (09:05)
[2018-05-20] MEDS: Benzocaine/Menthol (Cepacol) Lozenge PO PRN ×2 (09:05→16:37)
[2018-05-20] MEDS ORDERED: Chlorhexidine Gluconate 1 APPL/PKT TP ONE (11:57)
--- NOTE | 2018-05-20 12:40 | CP.PCM.CON ---
History of Present Illness - History of Present Illness History of Present Illness: episode of vaginal bleeding 78 y/o ( x10) No hx of tubal ligation Menarchy a 16 y/o and Menopause since mid 40's with no hx of any episode of PM bleeding until now and she refers this was only one time. 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 Review of Systems - Breasts Breasts: As Per HPI - Cardiovascular Additional comments: Hx of HTN - Respiratory Respiratory: Cough Additional comments: COPD - Genitourinary Genitourinary: As Per HPI - Reproductive: Female Reproductive:Female: As Per HPI - Menstruation Menstruation: As Per HPI Past Patient History - Infectious Disease Hx of Infectious Diseases: None - Tetanus Immunizations Tetanus Immunization: Unknown - Past Medical History & Family History Past Medical History?: Yes - Past Social History Smoking Status: Never Smoked - CARDIAC Hx Cardiac Disorders: Yes Hx Hypertension: Yes - PULMONARY Hx Respiratory Disorders: Yes Hx Chronic Obstructive Pulmonary Disease (COPD): Yes - NEUROLOGICAL Hx Neurological Disorder: No - HEENT Hx HEENT Problems: Yes - RENAL Hx Chronic Kidney Disease: No - ENDOCRINE/METABOLIC Hx Endocrine Disorders: Yes - HEMATOLOGICAL/ONCOLOGICAL Hx Anemia: Yes - INTEGUMENTARY Hx Dermatological Problems: Yes - MUSCULOSKELETAL/RHEUMATOLOGICAL Hx Musculoskeletal Disorders: Yes Hx Falls: No - GASTROINTESTINAL Hx Gastrointestinal Disorders: No - GENITOURINARY/GYNECOLOGICAL Hx Genitourinary Disorders: No - PSYCHIATRIC Hx Psychophysiologic Disorder: Yes Hx Substance Use: No - SURGICAL HISTORY Hx Surgeries: Yes Hx Angiogram: Yes (As per pt, done by Dr. Marlon Rodriges) Hx Orthopedic Surgery: Yes (left arm surgery) - ANESTHESIA Hx Anesthesia: Yes Hx Anesthesia Reactions: No Hx Malignant Hyperthermia: No Meds Allergies/Adverse Reactions: Allergies Allergy/AdvReac Type Severity Reaction Status Date / Time aspirin AdvReac RASH Verified 09/25/16 13:11 - Medications Medications: Current Medications Albuterol/Ipratropium (Duoneb 3 Mg/0.5 Mg (3 Ml) Ud) 3 ml INH RQ4 [facility] Last Admin: 05/20/18 11:15 Dose: 3 ml Alprazolam (Xanax) 0.5 mg PO BID [facility] Last Admin: 05/20/18 09:08 Dose: 0.5 mg Amlodipine Besylate (Norvasc) 2.5 mg PO DAILY [facility] Last Admin: 05/20/18 09:03 Dose: 2.5 mg Atorvastatin Calcium (Lipitor) 20 mg PO HS [facility] Last Admin: 05/19/18 22:13 Dose: 20 mg Benzocaine/Menthol (Cepacol Sore Throat) 1 teresa PO Q4 PRN PRN Reason: Sore Throat Last Admin: 05/20/18 09:05 Dose: 1 teresa Docusate Sodium (Colace) 100 mg PO TID [facility] Last Admin: 05/20/18 09:04 Dose: 100 mg Hydrochlorothiazide (Microzide) 12.5 mg PO DAILY [facility] Last Admin: 05/20/18 09:03 Dose: 12.5 mg Insulin Detemir (Levemir) 30 units SC [facility] Last Admin: 05/19/18 22:14 Dose: 30 units Insulin Human Lispro (Humalog) 0 units SC [facility] PRN Reason: Protocol Last Admin: 05/20/18 09:00 Dose: 3 units Insulin Human Lispro (Humalog) 16 units SC TIDAC [facility] Last Admin: 05/20/18 09:01 Dose: 16 units Methylprednisolone (Solu-Medrol) 40 mg IVP Q8 [facility] Last Admin: 05/20/18 08:58 Dose: 40 mg Mirtazapine (Remeron) 15 mg PO DAILY [facility] Last Admin: 05/20/18 09:03 Dose: 15 mg Montelukast Sodium (Singulair) 10 mg PO DAILY [facility] Last Admin: 05/20/18 09:04 Dose: 10 mg Oxycodone/Acetaminophen (Percocet 5/325 Mg Tab) 1 tab PO Q6 PRN PRN Reason: Pain, severe (8-10) Last Admin: 05/19/18 15:28 Dose: 1 tab Pantoprazole Sodium (Protonix Ec Tab) 40 mg PO DAILY [facility] Last Admin: 05/20/18 09:05 Dose: 40 mg Promethazine HCl/Codeine (Phenergan/Codeine Oral Syrup) 10 ml PO Q6 PRN PRN Reason: Cough Last Admin: 05/20/18 02:50 Dose: 10 ml Ticagrelor (Brilinta) 90 mg PO BID [facility] Last Admin: 05/20/18 09:03 Dose: 90 mg Physical Exam - Constitutional Appears: No Acute Distress - Head Exam Head Exam: ATRAUMATIC - Respiratory Exam Respiratory Exam: NORMAL BREATHING PATTERN - GI/Abdominal Exam Additional comments: soft Not distended, depressible NT - Exam External exam: NORMAL EXTERNAL EXAM Additional comments: Vaginal exam at bedside very limited but no blood or bloody discharge in glove Not able to palpate well pelvic organs pt not cooperative - Extremities Exam Additional comments: no edema or calf tenderness Results - Vital Signs Recent Vital Signs: Last Vital Signs Temp 97.5 F L 05/20/18 08:32 Pulse 89 05/20/18 09:03 Resp 19 05/20/18 08:32 BP 138/76 05/20/18 09:03 Pulse Ox 97 05/20/18 08:32 - Labs Result Diagrams: 05/19/18 00:00 05/19/18 00:00 Labs: Laboratory Results - last 24 hr 05/19/18 05/19/18 05/20/18 16:35 22:01 03:24 POC Glucose (mg/dL) > 500 H* > 500 H* 283 H 05/20/18 05:40 POC Glucose (mg/dL) 269 H Assessment & Plan - Assessment and Plan (Free Text) Assessment: episode of PM bleeding Plan: will get TVS to evaluate endometrial lining and for pap as outpatient - Date & Time Date: 05/20/18 Time: 12:49
--- NOTE | 2018-05-20 15:24 | CP.PCM.PN ---
Subjective - Date & Time of Evaluation Date of Evaluation: 05/20/18 - Subjective Subjective: cough "dry" , paroxismal at times, no SOB with O2, had Vaginal bleeding x 1 , BS high 2nd to steroids Objective - Vital Signs/Intake and Output Vital Signs (last 24 hours): Temp Pulse Resp BP Pulse Ox 97.5 F L 89 19 138/76 97 05/20/18 08:32 05/20/18 09:03 05/20/18 08:32 05/20/18 09:03 05/20/18 08:32 - Medications Medications: Current Medications Albuterol/Ipratropium (Duoneb 3 Mg/0.5 Mg (3 Ml) Ud) 3 ml INH RQ4 [facility] Last Admin: 05/20/18 15:02 Dose: 3 ml Alprazolam (Xanax) 0.5 mg PO BID [facility] Last Admin: 05/20/18 09:08 Dose: 0.5 mg Amlodipine Besylate (Norvasc) 2.5 mg PO DAILY [facility] Last Admin: 05/20/18 09:03 Dose: 2.5 mg Atorvastatin Calcium (Lipitor) 20 mg PO HS [facility] Last Admin: 05/19/18 22:13 Dose: 20 mg Benzocaine/Menthol (Cepacol Sore Throat) 1 teresa PO Q4 PRN PRN Reason: Sore Throat Last Admin: 05/20/18 09:05 Dose: 1 teresa Docusate Sodium (Colace) 100 mg PO TID [facility] Last Admin: 05/20/18 12:58 Dose: 100 mg Hydrochlorothiazide (Microzide) 12.5 mg PO DAILY [facility] Last Admin: 05/20/18 09:03 Dose: 12.5 mg Insulin Detemir (Levemir) 30 units SC HS [facility] Last Admin: 05/19/18 22:14 Dose: 30 units Insulin Human Lispro (Humalog) 0 units SC [facility] PRN Reason: Protocol Last Admin: 05/20/18 12:56 Dose: 2 units Insulin Human Lispro (Humalog) 16 units SC TIDAC [facility] Last Admin: 05/20/18 12:57 Dose: 16 units Methylprednisolone (Solu-Medrol) 40 mg IVP Q8 [facility] Last Admin: 05/20/18 08:58 Dose: 40 mg Mirtazapine (Remeron) 15 mg PO DAILY [facility] Last Admin: 05/20/18 09:03 Dose: 15 mg Montelukast Sodium (Singulair) 10 mg PO DAILY [facility] Last Admin: 05/20/18 09:04 Dose: 10 mg Oxycodone/Acetaminophen (Percocet 5/325 Mg Tab) 1 tab PO Q6 PRN PRN Reason: Pain, severe (8-10) Last Admin: 05/19/18 15:28 Dose: 1 tab Pantoprazole Sodium (Protonix Ec Tab) 40 mg PO DAILY [facility] Last Admin: 05/20/18 09:05 Dose: 40 mg Promethazine HCl/Codeine (Phenergan/Codeine Oral Syrup) 10 ml PO Q6 PRN PRN Reason: Cough Last Admin: 05/20/18 02:50 Dose: 10 ml Ticagrelor (Brilinta) 90 mg PO BID [facility] Last Admin: 05/20/18 09:03 Dose: 90 mg - Labs Labs: 05/19/18 00:00 05/19/18 00:00 - Constitutional Appears: No Acute Distress - Head Exam Head Exam: NORMAL INSPECTION - Eye Exam Eye Exam: PERRL - ENT Exam ENT Exam: Normal Exam - Neck Exam Neck Exam: Normal Inspection - Respiratory Exam Respiratory Exam: Decreased Breath Sounds (at bases) - Cardiovascular Exam Cardiovascular Exam: REGULAR RHYTHM - GI/Abdominal Exam GI & Abdominal Exam: Soft, Normal Bowel Sounds - Extremities Exam Extremities Exam: Tenderness (R L knee) - Back Exam Back Exam: tenderness - Neurological Exam Neurological Exam: Alert, CN II-XII Intact Additional comments: no focal motor deficit , decreased sensation distal legs , unsteady gait - Psychiatric Exam Psychiatric exam: Anxious - Skin Skin Exam: Warm Assessment and Plan (1) COPD exacerbation Status: Acute (2) DMII (diabetes mellitus, type 2) Status: Acute (3) HTN (hypertension) Status: Acute (4) History of atherectomy Status: Acute (5) Hyperglycemia Status: Acute (6) PVD (peripheral vascular disease) Status: Acute (7) Osteoarthritis Status: Chronic - Assessment and Plan (Free Text) Plan: Solu Medrol DC for Hyperglicemia, add Pulmicort, continue DuoNeb, Prometh with Codeine, 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
[2018-05-20] MEDS: Promethazine/Cod 6.25mg-10mg/5ml Syr UD PO SCH ×2 (16:37→22:19)
[2018-05-20] MEDS ORDERED: Budesonide 0.5 mg/2 ml Inhal Susp UD IH SCH (17:00)
--- NOTE | 2018-05-20 17:02 | US ---
Date of service: 05/20/2018 PROCEDURE: Pelvic ultrasound HISTORY: Post menopausal vaginal bleeding. COMPARISON: No prior study available for comparison. TECHNIQUE: Trans abdominal and transvaginal sonographic evaluation of the pelvis performed. Examination is limited the as patient was unable to void completely for transvaginal study FINDINGS: Uterus is anteverted measuring approximately the 6.3 x 2.9 x 2.3 uterus is heterogeneous The ovaries not visualized on this exam IMPRESSION: Limited study as detailed above as patient was unable to empty urinary bladder for adequate transvaginal exam. The uterus is heterogeneous. .Follow-up facility maintenance technician consultation suggested given this patient's history of postmenopausal bleeding. Consider followup hysteroscopy to exclude endometrial malignancy
[2018-05-20] MEDS: Insulin Detemir 100 Units/ml Inj SC SCH (22:19)
[2018-05-20] MEDS: Budesonide 0.5 mg/2 ml Inhal Susp UD IH SCH (23:25)
[2018-05-21] MEDS: MethylPREDNISolone 40 mg Vial IVP SCH ×2 (00:57→09:05)
[2018-05-21] MEDS: Benzocaine/Menthol (Cepacol) Lozenge PO PRN (01:00)
[2018-05-21] MEDS: Promethazine/Cod 6.25mg-10mg/5ml Syr UD PO SCH ×4 (03:10→22:47)
[2018-05-21] MEDS: Albuterol-Ipratrop 3 mg / 0.5 (3 ml) UD INH SCH ×6 (04:19→23:52)
[2018-05-21] MEDS ORDERED: Insulin Lispro (humaLOG) 100 Units/ml Inj SC ONE (06:30)
[2018-05-21] MEDS: Budesonide 0.5 mg/2 ml Inhal Susp UD IH SCH ×3 (07:32→23:53)
[2018-05-21 08:46] LABS: BASO % 0.1 % (0.0-2.0); HEMOGLOBIN 8.9 g/dL (12.0-16.0); LYMPH # 0.8 K/uL (1.0-4.3); LYMPH % 7.1 % (20.0-40.0); MEAN CELL VOLUME 88.9 fl (81.0-99.0); MEAN CORPUSCULAR HEMOGLOBIN 29.4 pg (27.0-31.0); MEAN PLATELET VOLUME 9.2 fl (7.2-11.7); MONO # 0.6 K/uL (0.0-0.8); MONO % 4.9 % (0.0-10.0); NEUT % 87.9 % (50.0-75.0); PLATELET COUNT 337 K/uL (130-400); RBC 3.04 Mil/uL (3.80-5.20); RED CELL DISTRIBUTION WIDTH 13.7 % (11.5-14.5); WHITE BLOOD COUNT 11.3 K/uL (4.8-10.8)
[2018-05-21] MEDS: Insulin Lispro (humaLOG) 100 Units/ml Inj SC SCH ×7 (08:58→21:46)
[2018-05-21 09:01] LABS: ALB/GLOB RATIO 1.2 (1.0-2.1); ALBUMIN 4.3 g/dL (3.5-5.0); CALCIUM 10.3 mg/dL (8.4-10.2)
[2018-05-21] MEDS: Pantoprazole 40 mg EC Tab PO SCH (09:04)
[2018-05-21 13:55] LABS: LYMPHOCYTE 8 % (20-50); MONOCYTE 3 % (0-10); NEUTROPHIL 89 % (42-75); PLATELET ESTIMATE NORMAL (NORMAL); TOTAL CELLS COUNTED 100
[2018-05-21 13:56] LABS: HYPOCHROMIC SLIGHT; TOXIC GRANULATION PRESENT
--- NOTE | 2018-05-21 16:34 | CP.PCM.PN ---
Subjective - Date & Time of Evaluation Date of Evaluation: 05/21/18 - Subjective Subjective: F/U COPD Exacerbation. Breathing better, less Chest congestion, dry cough, no vaginal bleeding Objective - Vital Signs/Intake and Output Vital Signs (last 24 hours): Temp Pulse Resp BP Pulse Ox 98.1 F 98 H 20 131/68 99 05/21/18 15:43 05/21/18 15:43 05/21/18 15:43 05/21/18 15:43 05/21/18 15:43 - Medications Medications: Current Medications Albuterol/Ipratropium (Duoneb 3 Mg/0.5 Mg (3 Ml) Ud) 3 ml INH RQ4 [facility] Last Admin: 05/21/18 15:01 Dose: 3 ml Alprazolam (Xanax) 0.5 mg PO BID [facility] Last Admin: 05/21/18 09:08 Dose: 0.5 mg Amlodipine Besylate (Norvasc) 2.5 mg PO DAILY [facility] Last Admin: 05/21/18 09:03 Dose: 2.5 mg Atorvastatin Calcium (Lipitor) 20 mg PO HS [facility] Last Admin: 05/20/18 22:18 Dose: 20 mg Benzocaine/Menthol (Cepacol Sore Throat) 1 teresa PO Q4 PRN PRN Reason: Sore Throat Last Admin: 05/21/18 01:00 Dose: 1 teresa Budesonide (Pulmicort Respules) 0.5 mg IH RQ8 [facility] Last Admin: 05/21/18 15:00 Dose: 0.5 mg Docusate Sodium (Colace) 100 mg PO TID [facility] Last Admin: 05/21/18 12:48 Dose: 100 mg Hydrochlorothiazide (Microzide) 12.5 mg PO DAILY [facility] Last Admin: 05/21/18 09:03 Dose: 12.5 mg Insulin Detemir (Levemir) 60 units SC HS [facility] Insulin Human Lispro (Humalog) 0 units SC [facility] PRN Reason: Protocol Last Admin: 05/21/18 12:49 Dose: 6 units Insulin Human Lispro (Humalog) 24 units SC TIDAC [facility] Mirtazapine (Remeron) 15 mg PO DAILY [facility] Last Admin: 05/20/18 09:03 Dose: 15 mg Montelukast Sodium (Singulair) 10 mg PO DAILY [facility] Last Admin: 05/21/18 09:05 Dose: 10 mg Oxycodone/Acetaminophen (Percocet 5/325 Mg Tab) 1 tab PO Q6 PRN PRN Reason: Pain, severe (8-10) Last Admin: 05/19/18 15:28 Dose: 1 tab Pantoprazole Sodium (Protonix Ec Tab) 40 mg PO DAILY [facility] Last Admin: 05/21/18 09:04 Dose: 40 mg Promethazine HCl/Codeine (Phenergan/Codeine Oral Syrup) 10 ml PO Q6 [facility] Last Admin: 05/21/18 09:08 Dose: 10 ml Ticagrelor (Brilinta) 90 mg PO BID [facility] Last Admin: 05/21/18 09:02 Dose: 90 mg - Labs Labs: 05/21/18 08:31 05/21/18 08:31 - Constitutional Appears: No Acute Distress - Head Exam Head Exam: NORMAL INSPECTION - Eye Exam Eye Exam: PERRL - ENT Exam ENT Exam: Normal Exam - Neck Exam Neck Exam: Normal Inspection - Respiratory Exam Respiratory Exam: Decreased Breath Sounds (at bases) - Cardiovascular Exam Cardiovascular Exam: REGULAR RHYTHM - GI/Abdominal Exam GI & Abdominal Exam: Soft, Normal Bowel Sounds - Extremities Exam Extremities Exam: Tenderness (R-L knee) - Back Exam Back Exam: tenderness - Neurological Exam Neurological Exam: Alert, CN II-XII Intact Additional comments: No focal motor deficit, decreased sensation distal legs, unsteady gait - Psychiatric Exam Psychiatric exam: Anxious - Skin Skin Exam: Warm Assessment and Plan (1) COPD exacerbation Status: Acute (2) DMII (diabetes mellitus, type 2) Status: Acute (3) HTN (hypertension) Status: Acute (4) History of atherectomy Status: Acute (5) Hyperglycemia Status: Acute (6) PVD (peripheral vascular disease) Status: Acute (7) Post-menopausal bleeding Status: Acute (8) Osteoarthritis Status: Acute - Assessment and Plan (Free Text) Plan: BD elevated 2nd to steroids, Solu Medrol was DC yesterday , on Pulmocort and DuoNeb neb, Patient continue with dry cough with slight improvement, bronchospasm improved, Transvag US heterogenious uterus , ovaries not visualized, f/u out patient D&C, PT eval
[2018-05-21] MEDS: Oxycodone/Acetaminophen 5/325 mg Tab PO PRN (19:39)
[2018-05-21] MEDS: Insulin Detemir 100 Units/ml Inj SC SCH (21:46)
--- NOTE | 2018-05-22 01:57 | CON ---
Copied To: Rosenda Dinh MD Attending MD: Rosenda Dinh MD DATE: 05/21/2018 ENDOCRINOLOGY CONSULTATION LOCATION: Room 669. HISTORY OF PRESENT ILLNESS: This is a 78-year-old female with known history of type 2 insulin-requiring diabetes, presenting here from the subacute facility because of progressively worsening wheezing with congestion and paroxysmal coughing episodes and was evaluated to have an acute exacerbation of COPD and is now being referred for diabetic evaluation because of marked hyperglycemic accelerations as noted thereof. PAST MEDICAL HISTORY: History of type 2 insulin-requiring diabetes, on a combination of Lantus taken as 30 units subcu at bedtime daily with NovoLog given as 12 units t.i.d. before meals as given. History of hypertension and dyslipidemia. History of coronary artery disease with underlying peripheral arterial disease and vasculopathy and recently underwent a right femoral atherectomy with angioplasty procedure as noted. History of Graves disease/hyperthyroidism, currently off thyroid medication as noted. History of generalized anxiety and depression, on psychotropic medication. She also has known history of COPD with previous admissions for exacerbations of the same. She has also known history of diffuse osteoporosis and osteoarthritis in the lower back area and hip area as noted. FAMILY HISTORY: Positive for diabetes and hypertension. SOCIAL HISTORY: The patient has supportive family. No known substance use. REVIEW OF SYSTEMS: As mentioned above, admits to generalized body weakness with episodic bouts of dizziness and lightheadedness, worse on the day of admission. Also admits to precordial chest pain with paroxysmal coughing episodes and progressive shortness of breath initially on exertion and then at rest. Her oral intake has been variable with nausea, dyspepsia and vague upper abdominal pain. LABORATORY DATA: Her chemistry showed a BUN of 29, sodium 136, potassium 4.4, chloride 99, CO2 of 25, glucose 480, and creatinine 1.1. Her glucose values have ranged from 422 to 426 mg/dL. ASSESSMENT: This is a 78-year-old female with uncontrolled and decompensated type 2 insulin-requiring diabetes with marked hyperglycemic accelerations with early dehydration and prerenal azotemia as expected from the increased osmotic diuresis thereof. She was transferred here for acute exacerbation of chronic obstructive pulmonary disease as noted thereof. She also has diabetic microvascular complications of polyneuropathy with macrovascular complications of coronary artery disease and peripheral arterial disease and vasculopathy with a recent right femoral atherectomy and angioplasty was undertaken thereof. PLAN OF MANAGEMENT: We will modify her current insulin regimen and switch her over to a more physiologic basal and bolus insulin drug combination to optimize metabolic control. We will add Humalog given as 24 units subcu t.i.d. before meals to start today. We will also increase her basal insulin with Levemir to be given as 60 units subcu at bedtime daily as given. We will titrate incrementally as indicated to optimize metabolic control. We will obtain serial chemistries and supplement accordingly as needed. We will follow. Rosenda Dinh MD
[2018-05-22] MEDS: Promethazine/Cod 6.25mg-10mg/5ml Syr UD PO SCH ×4 (04:18→22:38)
[2018-05-22] MEDS: Albuterol-Ipratrop 3 mg / 0.5 (3 ml) UD INH SCH ×5 (05:08→19:45)
[2018-05-22 06:44] LABS: HEMOGLOBIN 8.8 g/dL (12.0-16.0); MEAN CELL VOLUME 88.9 fl (81.0-99.0); MEAN CORPUSCULAR HEMOGLOBIN 28.9 pg (27.0-31.0); MEAN CORPUSCULAR HGB CONC 32.5 g/dL (33.0-37.0); RBC 3.03 Mil/uL (3.80-5.20); RED CELL DISTRIBUTION WIDTH 14.1 % (11.5-14.5); WHITE BLOOD COUNT 12.2 K/uL (4.8-10.8)
[2018-05-22 06:54] LABS: CALCIUM 9.7 mg/dL (8.4-10.2)
[2018-05-22] MEDS: Budesonide 0.5 mg/2 ml Inhal Susp UD IH SCH ×2 (07:23→15:44)
[2018-05-22] MEDS: Pantoprazole 40 mg EC Tab PO SCH (09:26)
[2018-05-22] MEDS: Insulin Lispro (humaLOG) 100 Units/ml Inj SC SCH ×7 (09:32→23:10)
--- NOTE | 2018-05-22 14:46 | PN ---
Copied To: Rosenda Dinh MD Attending MD: Rosenda Dinh MD DATE: 05/22/2018 ENDO FOLLOWUP NOTE LOCATION: In room 669. SUBJECTIVE: This is a 78-year-old female with recent uncontrolled type 2 insulin-requiring diabetes, presenting here with acute exacerbation of COPD and is now being followed closely for metabolic management. Her glycemic levels are fluctuating, but improved, have ranged from 127 to 218 mg/dL. LABORATORY DATA: Her latest chemistry showed a BUN of 33, sodium 138, potassium 3.7, chloride 100, CO2 of 26, glucose 213, and creatinine 1.2. Her hemoglobin A1c is 7.8%, which is actually near optimal for her current clinical status and advanced age as noted. ASSESSMENT: This is a 78-year-old female with recent uncontrolled type 2 insulin-requiring diabetes with marked hyperglycemic accelerations, presenting here with an acute exacerbation of chronic obstructive pulmonary disease as noted. She also has diabetic microvascular complications of retinopathy and polyneuropathy with macrovascular complications of coronary artery disease and underlying peripheral arterial disease and vasculopathy. PLAN: So at this time, we will continue the same basal and bolus insulin regimen to allow for dose equilibration and continue the Levemir given as 60 units subcu at bedtime daily as ordered. We will continue the Humalog given as 24 units subcu t.i.d. before meals as ordered. We will continue also the low-dose correction scale using Humalog insulin as ordered. We will obtain serial chemistries and supplement accordingly as needed. We will follow. Rosenda Dinh MD
--- NOTE | 2018-05-22 16:17 | CP.PCM.PN ---
Subjective - Date & Time of Evaluation Date of Evaluation: 05/22/18 Time of Evaluation: 11:50 - Subjective Subjective: F/U COPD Exacerbation. no SOB , dry cough , no vaginal bleeding Objective - Vital Signs/Intake and Output Vital Signs (last 24 hours): Temp Pulse Resp BP Pulse Ox 97.5 F L 119 H 20 112/65 100 05/22/18 16:13 05/22/18 16:13 05/22/18 16:13 05/22/18 16:13 05/22/18 16:13 - Medications Medications: Current Medications Albuterol/Ipratropium (Duoneb 3 Mg/0.5 Mg (3 Ml) Ud) 3 ml INH RQ4 [facility] Last Admin: 05/22/18 15:43 Dose: 3 ml Alprazolam (Xanax) 0.5 mg PO BID [facility] Last Admin: 05/22/18 09:40 Dose: 0.5 mg Amlodipine Besylate (Norvasc) 2.5 mg PO DAILY [facility] Last Admin: 05/22/18 09:27 Dose: 2.5 mg Atorvastatin Calcium (Lipitor) 20 mg PO HS [facility] Last Admin: 05/21/18 21:46 Dose: 20 mg Benzocaine/Menthol (Cepacol Sore Throat) 1 teresa PO Q4 PRN PRN Reason: Sore Throat Last Admin: 05/21/18 01:00 Dose: 1 teresa Budesonide (Pulmicort Respules) 0.5 mg IH RQ8 [facility] Last Admin: 05/22/18 15:44 Dose: 0.5 mg Docusate Sodium (Colace) 100 mg PO TID [facility] Last Admin: 05/22/18 13:34 Dose: 100 mg Hydrochlorothiazide (Microzide) 12.5 mg PO DAILY [facility] Last Admin: 05/22/18 09:30 Dose: 12.5 mg Insulin Detemir (Levemir) 60 units SC HS [facility] Last Admin: 05/21/18 21:46 Dose: 60 unit Insulin Human Lispro (Humalog) 0 units SC ACHS [facility] PRN Reason: Protocol Last Admin: 05/22/18 13:35 Dose: 4 units Insulin Human Lispro (Humalog) 24 units SC TIDAC [facility] Last Admin: 05/22/18 13:35 Dose: 24 units Mirtazapine (Remeron) 15 mg PO DAILY@HS [facility] Last Admin: 05/21/18 21:46 Dose: 15 mg Montelukast Sodium (Singulair) 10 mg PO DAILY [facility] Last Admin: 05/22/18 09:36 Dose: 10 mg Oxycodone/Acetaminophen (Percocet 5/325 Mg Tab) 1 tab PO Q6 PRN PRN Reason: Pain, severe (8-10) Last Admin: 05/21/18 19:39 Dose: 1 tab Pantoprazole Sodium (Protonix Ec Tab) 40 mg PO DAILY [facility] Last Admin: 05/22/18 09:26 Dose: 40 mg Promethazine HCl/Codeine (Phenergan/Codeine Oral Syrup) 10 ml PO Q6 [facility] Last Admin: 05/22/18 13:38 Dose: 10 ml Fluticasone/Salmeterol (Advair Diskus 500/50) 1 puff IH Q12 [facility] Ticagrelor (Brilinta) 90 mg PO BID [facility] Last Admin: 05/22/18 09:30 Dose: 90 mg - Labs Labs: 05/22/18 06:25 05/22/18 06:25 - Constitutional Appears: No Acute Distress - Head Exam Head Exam: NORMAL INSPECTION - Eye Exam Eye Exam: PERRL - ENT Exam ENT Exam: Normal Exam - Neck Exam Neck Exam: Normal Inspection - Respiratory Exam Respiratory Exam: Decreased Breath Sounds (at bases) - Cardiovascular Exam Cardiovascular Exam: REGULAR RHYTHM - GI/Abdominal Exam GI & Abdominal Exam: Soft, Normal Bowel Sounds - Extremities Exam Extremities Exam: Tenderness (R-L knee) - Back Exam Back Exam: tenderness - Neurological Exam Neurological Exam: Alert, CN II-XII Intact Additional comments: No focal motor deficit, unsteady gait - Psychiatric Exam Psychiatric exam: Anxious - Skin Skin Exam: Warm Assessment and Plan (1) COPD exacerbation Status: Acute (2) DMII (diabetes mellitus, type 2) Status: Acute (3) HTN (hypertension) Status: Acute (4) History of atherectomy Status: Acute (5) Hyperglycemia Status: Acute (6) PVD (peripheral vascular disease) Status: Acute (7) Post-menopausal bleeding Status: Acute (8) Osteoarthritis Status: Acute - Assessment and Plan (Free Text) Plan: continue with cough, BS not stable, Patient is off steroids IV, on DuoNeb and Pulmicort , continue levemir , Humalog, 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
[2018-05-22] MEDS: Fluticasone-Salmeterol 500-50mcg Diskus IH SCH ×2 (17:08→22:38)
[2018-05-22] MEDS ORDERED: Albuterol-Ipratrop 3 mg / 0.5 (3 ml) UD INH PRN (19:00)
[2018-05-22] MEDS: Insulin Detemir 100 Units/ml Inj SC SCH (23:11)
[2018-05-23] MEDS: Albuterol-Ipratrop 3 mg / 0.5 (3 ml) UD INH SCH ×4 (00:20→11:29)
[2018-05-23] MEDS: Promethazine/Cod 6.25mg-10mg/5ml Syr UD PO SCH ×3 (04:25→12:48)
[2018-05-23 06:39] LABS: HEMOGLOBIN 9.2 g/dL (12.0-16.0); MEAN CELL VOLUME 90.2 fl (81.0-99.0); MEAN CORPUSCULAR HEMOGLOBIN 29.3 pg (27.0-31.0); MEAN CORPUSCULAR HGB CONC 32.4 g/dL (33.0-37.0); RBC 3.16 Mil/uL (3.80-5.20); WHITE BLOOD COUNT 10.9 K/uL (4.8-10.8)
[2018-05-23 07:04] LABS: CALCIUM 9.5 mg/dL (8.4-10.2)
[2018-05-23] MEDS: Budesonide 0.5 mg/2 ml Inhal Susp UD IH SCH (07:49)
[2018-05-23 07:59] VITALS: BP 116/65; PULSE 90; RESP 20; TEMP 97.7; O2SAT 99
[2018-05-23] MEDS: Fluticasone-Salmeterol 500-50mcg Diskus IH SCH (08:49)
[2018-05-23] MEDS: Insulin Lispro (humaLOG) 100 Units/ml Inj SC SCH ×4 (08:55→12:36)
[2018-05-23] MEDS: Pantoprazole 40 mg EC Tab PO SCH (08:57)
--- NOTE | 2018-05-23 10:35 | CP.PCM.PN ---
Subjective - Date & Time of Evaluation Date of Evaluation: 05/23/18 Time of Evaluation: 10:33 - Subjective Subjective: Denies any further bleeding or spotting "Was only once maybe I scratch" No discharge or itching Objective - Vital Signs/Intake and Output Vital Signs (last 24 hours): Temp Pulse Resp BP Pulse Ox 97.7 F 90 20 116/65 99 05/23/18 07:58 05/23/18 08:57 05/23/18 07:58 05/23/18 08:57 05/23/18 07:58 - Medications Medications: Current Medications Albuterol/Ipratropium (Duoneb 3 Mg/0.5 Mg (3 Ml) Ud) 3 ml INH RQ4 [facility] Last Admin: 05/23/18 07:49 Dose: 3 ml Albuterol/Ipratropium (Duoneb 3 Mg/0.5 Mg (3 Ml) Ud) 3 ml INH RQ4 PRN PRN Reason: Shortness of Breath Alprazolam (Xanax) 0.5 mg PO BID [facility] Last Admin: 05/23/18 08:57 Dose: 0.5 mg Amlodipine Besylate (Norvasc) 2.5 mg PO DAILY [facility] Last Admin: 05/23/18 08:57 Dose: 2.5 mg Atorvastatin Calcium (Lipitor) 20 mg PO HS [facility] Last Admin: 05/22/18 22:38 Dose: 20 mg Benzocaine/Menthol (Cepacol Sore Throat) 1 teresa PO Q4 PRN PRN Reason: Sore Throat Last Admin: 05/21/18 01:00 Dose: 1 teresa Budesonide (Pulmicort Respules) 0.5 mg IH RQ8 [facility] Last Admin: 05/23/18 07:49 Dose: 0.5 mg Docusate Sodium (Colace) 100 mg PO TID [facility] Last Admin: 05/23/18 08:50 Dose: 100 mg Hydrochlorothiazide (Microzide) 12.5 mg PO DAILY [facility] Last Admin: 05/23/18 08:57 Dose: 12.5 mg Insulin Detemir (Levemir) 60 units SC [facility] Last Admin: 05/22/18 23:11 Dose: Not Given Insulin Human Lispro (Humalog) 0 units SC [facility] PRN Reason: Protocol Last Admin: 05/23/18 08:55 Dose: 4 units Insulin Human Lispro (Humalog) 24 units SC TIDAC [facility] Last Admin: 05/23/18 08:56 Dose: 24 units Mirtazapine (Remeron) 15 mg PO DAILY@HS [facility] Last Admin: 05/22/18 22:38 Dose: 15 mg Montelukast Sodium (Singulair) 10 mg PO DAILY [facility] Last Admin: 05/23/18 08:57 Dose: 10 mg Oxycodone/Acetaminophen (Percocet 5/325 Mg Tab) 1 tab PO Q6 PRN PRN Reason: Pain, severe (8-10) Last Admin: 05/21/18 19:39 Dose: 1 tab Pantoprazole Sodium (Protonix Ec Tab) 40 mg PO DAILY [facility] Last Admin: 05/23/18 08:57 Dose: 40 mg Promethazine HCl/Codeine (Phenergan/Codeine Oral Syrup) 10 ml PO Q6 [facility] Last Admin: 05/23/18 04:25 Dose: 10 ml Fluticasone/Salmeterol (Advair Diskus 500/50) 1 puff IH Q12 [facility] Last Admin: 05/23/18 08:49 Dose: 1 puff Ticagrelor (Brilinta) 90 mg PO BID [facility] Last Admin: 05/23/18 08:50 Dose: 90 mg - Labs Labs: 05/23/18 06:15 05/23/18 06:15 - Head Exam Head Exam: ATRAUMATIC - Neck Exam Neck Exam: Full ROM - Respiratory Exam Respiratory Exam: NORMAL BREATHING PATTERN - GI/Abdominal Exam GI & Abdominal Exam: Soft, Normal Bowel Sounds - Extremities Exam Additional comments: no calf tenderness Assessment and Plan - Assessment and Plan (Free Text) Assessment: no further episode of bleeding Plan: Sono reviewed and even though limited study normal size uterus and no adnexal mass Since pt not medically stable at this time she will be followed as outpatient for pap and possibe EB once discharged
--- NOTE | 2018-05-23 17:06 | CP.PCM.DIS ---
Provider - Provider Date of Admission: 05/19/18 01:09 Attending physician: Luís David MD Consults: Cardiology-Dr. Zavala Endocrinology-Dr. Dinh DISCHARGE DOOR OPERATOR-Dr. Mcmillan Time Spent in preparation of Discharge (in minutes): 35 Diagnosis - Discharge Diagnosis (1) COPD exacerbation Status: Acute Priority: High (2) DMII (diabetes mellitus, type 2) Status: Acute Priority: High (3) HTN (hypertension) Status: Acute (4) History of atherectomy Status: Acute Priority: High (5) Hyperglycemia Status: Acute Priority: High (6) PVD (peripheral vascular disease) Status: Acute Priority: High (7) Post-menopausal bleeding Status: Acute (8) Osteoarthritis Status: Acute Hospital Course - Lab Results Lab Results: Micro Results 05/18/18 23:41 Blood-Venous Blood Culture - Preliminary NO GROWTH AFTER 4 DAYS 05/19/18 01:55 Blood-Venous Blood Culture - Preliminary NO GROWTH AFTER 4 DAYS Most Recent Lab Values WBC 10.9 K/uL (4.8-10.8) H 05/23/18 06:15 RBC 3.16 Mil/uL (3.80-5.20) L 05/23/18 06:15 Hgb 9.2 g/dL (12.0-16.0) L 05/23/18 06:15 Hct 28.5 % (34.0-47.0) L 05/23/18 06:15 MCV 90.2 fl (81.0-99.0) 05/23/18 06:15 MCH 29.3 pg (27.0-31.0) 05/23/18 06:15 MCHC 32.4 g/dL (33.0-37.0) L 05/23/18 06:15 RDW 14.0 % (11.5-14.5) 05/23/18 06:15 Plt Count 320 K/uL (130-400) 05/23/18 06:15 MPV 9.2 fl (7.2-11.7) 05/21/18 08:31 Neut % (Auto) 87.9 % (50.0-75.0) H 05/21/18 08:31 Lymph % (Auto) 7.1 % (20.0-40.0) L 05/21/18 08:31 [place] % (Auto) 4.9 % (0.0-10.0) 05/21/18 08:31 Eos % (Auto) 0.0 % (0.0-4.0) 05/21/18 08:31 Baso % (Auto) 0.1 % (0.0-2.0) 05/21/18 08:31 Neut # (Auto) 10.0 K/uL (1.8-7.0) H 05/21/18 08:31 Lymph # (Auto) 0.8 K/uL (1.0-4.3) L 05/21/18 08:31 [place] # (Auto) 0.6 K/uL (0.0-0.8) 05/21/18 08:31 Eos # (Auto) 0.0 K/uL (0.0-0.7) 05/21/18 08:31 Baso # (Auto) 0.0 K/uL (0.0-0.2) 05/21/18 08:31 Neutrophils % (Manual) 89 % (42-75) H 05/21/18 08:31 Lymphocytes % (Manual) 8 % (20-50) L 05/21/18 08:31 Monocytes % (Manual) 3 % (0-10) 05/21/18 08:31 Toxic Granulation Present 05/21/18 08:31 Platelet Estimate Normal (NORMAL) 05/21/18 08:31 Hypochromasia (manual) Slight 05/21/18 08:31 pO2 30 mm/Hg (30-55) 05/18/18 23:51 VBG pH 7.41 (7.32-7.43) 05/18/18 23:51 VBG pCO2 44 mmHg (40-60) 05/18/18 23:51 VBG HCO3 26.8 mmol/L 05/18/18 23:51 VBG Total CO2 29.3 mmol/L (22-28) H 05/18/18 23:51 VBG O2 Sat (Calc) 63.2 % (40-65) 05/18/18 23:51 VBG Base Excess 3.0 mmol/L (0.0-2.0) H 05/18/18 23:51 VBG Potassium 4.1 mmol/L (3.6-5.2) 05/18/18 23:51 Sodium 134.0 mmol/L (132-148) 05/18/18 23:51 Chloride 102.0 mmol/L (98-107) 05/18/18 23:51 Glucose 227 mg/dL (65-105) H 05/18/18 23:51 Lactate 1.1 mmol/L (0.7-2.1) 05/18/18 23:51 FiO2 21.0 % 05/18/18 23:51 Sodium 134 mmol/l (132-148) 05/23/18 06:15 Potassium 4.6 MMOL/L (3.6-5.0) 05/23/18 06:15 Chloride 100 mmol/L (98-107) 05/23/18 06:15 Carbon Dioxide 23 mmol/L (22-30) 05/23/18 06:15 Anion Gap 16 (10-20) 05/23/18 06:15 BUN 33 mg/dl (7-17) H 05/23/18 06:15 Creatinine 1.3 mg/dl (0.7-1.2) H 05/23/18 06:15 Est GFR ( Amer) 48 05/23/18 06:15 Est GFR (Non-Af Amer) 40 05/23/18 06:15 POC Glucose (mg/dL) 94 mg/dL (65-110) 05/23/18 16:36 Random Glucose 363 mg/dL (65-105) H 05/23/18 06:15 Hemoglobin A1c 7.8 % (4.2-6.5) H 05/21/18 14:00 Calcium 9.5 mg/dL (8.4-10.2) 05/23/18 06:15 Total Bilirubin 0.2 mg/dl (0.2-1.3) 05/21/18 08:31 AST 30 U/L (14-36) 05/21/18 08:31 ALT 30 U/L (9-52) 05/21/18 08:31 Alkaline Phosphatase 79 U/L (38-126) 05/21/18 08:31 Troponin I < 0.0120 ng/mL (0.00-0.120) 05/19/18 00:00 NT-Pro-B Natriuret Pep 420 pg/ml (0-900) 05/22/18 10:35 Total Protein 7.7 G/DL (6.3-8.2) 05/21/18 08:31 Albumin 4.3 g/dL (3.5-5.0) 05/21/18 08:31 Globulin 3.4 gm/dL (2.2-3.9) 05/21/18 08:31 Albumin/Globulin Ratio 1.2 (1.0-2.1) 05/21/18 08:31 Venous Blood Potassium 4.1 mmol/L (3.6-5.2) 05/18/18 23:51 - Date & Time of H&P Date of H&P: 05/19/18 Discharge Exam - Head Exam Head Exam: NORMAL INSPECTION - Eye Exam Eye Exam: PERRL - ENT Exam ENT Exam: Normal Exam - Neck Exam Neck exam: Normal Inspection - Respiratory Exam Respiratory Exam: Decreased Breath Sounds (at bases) - Cardiovascular Exam Cardiovascular Exam: REGULAR RHYTHM - GI/Abdominal Exam GI & Abdominal Exam: Normal Bowel Sounds, Soft - Extremities Exam Extremities exam: tenderness (R/L knee) - Back Exam Back exam: tenderness - Neurological Exam Neurological exam: Alert, CN II-XII Intact Additional comments: No focal motor sensory deficit, unsteady gait - Psychiatric Exam Psychiatric exam: Anxious - Skin Skin Exam: Warm Discharge Plan - Discharge Medications Prescriptions: Fluticasone/Salmeterol 500/50 [Advair Diskus 500/50] 1 puff IH Q12 #1 puff Budesonide [Pulmicort Respules] 0.5 mg IH RQ8 #30 neb - Follow Up Plan Condition: FAIR Disposition: DISCHARGED TO HOME CARE Instructions: Exacerbation of COPD Referrals: Rosenda Dinh MD [Medical Doctor] - Elijah Zavala MD [Staff Provider] - Luís David MD [Family Provider] -
--- NOTE | 2018-05-23 21:48 | PN ---
Copied To: Rosenda Dinh MD Attending MD: Rosenda Dinh MD DATE: 05/23/2018 ENDO FOLLOWUP NOTE LOCATION: Room 669. SUBJECTIVE: This is a 78-year-old female with recent admission for acute exacerbation of COPD, started on steroid therapy with supervening hyperglycemic accelerations and are improving thereof as noted today. Her glucose levels have ranged from 99 to 111 mg/dL. LABORATORY DATA: Her chemistries today showed a BUN of 33, sodium 134, potassium 4.6, chloride 100, CO2 of 23, glucose 363, and creatinine 1.3. ASSESSMENT AND PLAN: So at this time, she is being scheduled for possible discharge, and the steroids have been discontinued otherwise. Then, we will switch her back to her home insulin regimen as discussed with the nurse practitioner today. She will be resuming her Lantus given as 30 units subcutaneously at bedtime daily with NovoLog given as 12 units subcutaneously t.i.d. before meals as ordered. She will follow with her medical doctor for outpatient diabetic and medical management and followup. We will follow and advise accordingly. Rosenda Dinh MD
== END 2018-05-23 17:00 | disposition home health service (06) | DRG 192 ==
LOC: H.ER 22:55 → H.ERHOLD 05-19 01:09 → H.MEDSURG1 05-19 02:22
PROVIDERS: ADMIT Internal Medicine Pulmonary Disease; ATTEND Internal Medicine Pulmonary Disease
DX: J44.1 Chronic obstructive pulmonary disease with (acute) exacerbation (principal); E11.65 Type 2 diabetes mellitus with hyperglycemia; I11.0 Hypertensive heart disease with heart failure; I50.9 Heart failure, unspecified; M81.0 Age-related osteoporosis without current pathological fracture; E78.00 Pure hypercholesterolemia, unspecified; Z87.891 Personal history of nicotine dependence; E11.42 Type 2 diabetes mellitus with diabetic polyneuropathy; E11.51 Type 2 diabetes mellitus with diabetic peripheral angiopathy without gangrene; M19.90 Unspecified osteoarthritis, unspecified site; Z79.4 Long term (current) use of insulin; E78.5 Hyperlipidemia, unspecified; F41.1 Generalized anxiety disorder; F32.9 Major depressive disorder, single episode, unspecified; E86.0 Dehydration; N95.0 Postmenopausal bleeding; E11.319 Type 2 diabetes mellitus with unspecified diabetic retinopathy without macular edema; E05.00 Thyrotoxicosis with diffuse goiter without thyrotoxic crisis or storm; F41.9 Anxiety disorder, unspecified

== ENCOUNTER 2018-09-07 19:56 | Inpatient (IN) | payer MEDICARE, MEDICAID ==
--- NOTE | 2018-09-07 21:24 | ED PDOC ---
Lower Extremity Pain/Injury Time Seen by Provider: 09/07/18 20:16 Chief Complaint (Nursing): Lower Extremity Problem/Injury Chief Complaint (Provider): Lower Extremity Problem/Injury History Per: Patient History/Exam Limitations: no limitations Onset/Duration Of Symptoms: Other (Today) Current Symptoms Are (Timing): Still Present Additional Complaint(s): 78 year old female presents to the ED with daughter complaining of right leg pain. Patient's daughter, Nusrat, is patient's preferred crimping press operator. Daughter states, today she was massaging patient's right leg and she noticed that when she lifted the leg up, leg turned white and when she placed it back down and let it hang over the bed, it turned back to red almost immediately. Daughter reports she has been having pain to the right leg from the hip all the way down the leg which has been constant and not increasing in severity. Denies radicular pain but pain is worse with movement. Pain has been going on since March after getting an angioplasty done by Dr. Rodriges. Daughter states she ended up having arterial occlusion after the surgery which was treated by Dr. Zavala and has been under the care of Dr. Zavala since then. Angiogram of the right leg was done about 1 month ago but is uncertain of results. Daughter also reports, due to constant pain, Dr. David, patient's PMD, ordered a MRI of the lo wer back to rule out a lumbar cause of the pain. They are uncertain of results and MRI was done today. Denies chest pain, SOB, trauma, numbness, tingling, or weakness. PMD: Dr. David Past Medical History Reviewed: Historical Data, Nursing Documentation, Vital Signs Vital Signs: Last Vital Signs Temp 98.1 F 09/07/18 20:07 Pulse 110 H 09/07/18 20:07 Resp 18 09/07/18 20:07 BP 132/64 09/07/18 20:07 Pulse Ox 99 09/07/18 20:07 - Medical History PMH: Anemia, Anxiety, Arthritis, Asthma, CHF, COPD, Depression, Diabetes, Graves' Disease, HTN, Hypercholesterolemia, Osteoporosis, Pneumonia Denies: Hypothyroidism, Chronic Kidney Disease - Surgical History Other surgeries: Angioplasty - Family History Family History: States: Unknown Family Hx - Immunization History Hx Influenza Vaccination: Yes Hx Pneumococcal Vaccination: Yes - Home Medications Home Medications: Ambulatory Orders Medication Instructions Recorded Mirtazapine [Remeron] 15 mg PO DAILY 10/13/17 Montelukast [Singulair] 10 mg PO DAILY 10/13/17 Pantoprazole [Protonix EC Tab] 40 mg PO DAILY #14 ect 10/18/17 Albuterol/Ipratropium [Duoneb 3 3 ml INH RQ4 neb 05/10/18 mg/0.5 mg (3 ml) UD] Docusate [Colace] 100 mg PO TID cap 05/10/18 Insulin Aspart, Recombinant 12 unit SC TIDAC unit 05/10/18 [Novolog] Insulin Glargine, Recombina 30 unit SC HS unit 05/10/18 [Lantus] Rivaroxaban [Xarelto] 20 mg PO DAILY #30 tab 05/10/18 Rosuvastatin Calcium [Crestor] 10 mg PO HS tab 05/10/18 Ticagrelor [Brilinta] 90 mg PO BID 30 Days tab 05/10/18 amLODIPine [Norvasc] 2.5 mg PO DAILY tab 05/10/18 hydroCHLOROthiazide [Microzide] 12.5 mg PO DAILY cap 05/10/18 oxyCODONE/Acetaminophen [Percocet 1 tab PO Q6H PRN tab 05/10/18 5/325 mg Tab] Budesonide [Pulmicort Respules] 0.5 mg IH RQ8 #30 neb 05/23/18 Fluticasone/Salmeterol 500/50 1 puff IH Q12 #1 puff 05/23/18 [Advair Diskus 500/50] - Allergies Allergies/Adverse Reactions: Allergies Allergy/AdvReac Type Severity Reaction Status Date / Time aspirin AdvReac RASH Verified 09/07/18 20:07 Review of Systems ROS Statement: Except As Marked, All Systems Reviewed And Found Negative Cardiovascular: Negative for: Chest Pain Respiratory: Negative for: Shortness of Breath Musculoskeletal: Positive for: Leg Pain (right). Negative for: Other (Radicular pain) Neurological: Negative for: Weakness, Numbness (or tingling) Physical Exam - Reviewed Nursing Documentation Reviewed: Yes Vital Signs Reviewed: Yes - Physical Exam Appears: Positive for: In Acute Distress (Minimal painful distress) Head Exam: Positive for: ATRAUMATIC, NORMOCEPHALIC Skin: Positive for: Normal Color, Warm, Dry Eye Exam: Positive for: Normal appearance Neck: Positive for: Normal, Painless ROM Cardiovascular/Chest: Positive for: Regular Rate, Rhythm Respiratory: Positive for: Normal Breath Sounds. Negative for: Wheezing, Respiratory Distress Extremity: Positive for: Capillary Refill (less than 2 seconds on both lower extremities), Other (DP and femoral pulses unable to be palpated. Right foot is colder than left. Limited ROM of the right ankle which daughter states is due to patient's drop foot and this is constant. ). Negative for: Calf Tenderness (bilaterally) Neurologic/Psych: Positive for: Alert. Negative for: Motor/Sensory Deficits - Laboratory Results Result Diagrams: 09/07/18 21:20 09/07/18 21:20 - ECG ECG: Positive for: Interpreted By Me ECG Rhythm: Positive for: Sinus Rhythm. Negative for: ST/T Changes Rate: 84 O2 Sat by Pulse Oximetry: 99 (RA) Pulse Ox Interpretation: Normal Medical Decision Making Medical Decision Making: Initial Plan: --Type and screen stat --CMP --CBC --PTT --Prothrombin time Patient evaluated by Dr. Waldrop who requests consult by Dr. Zavala. [phone] Zavala. 2137 2nd attempt made to contact to Dr. Zavala. 2144 Case d/w Dr. Zavala who recommends CTA b/l lower extremities and requests that no meds be given at this time. 0 Cr 1.4 GFR [address] Zavala. 0 Lab results d/w Dr. Zavala who still requests CTA to be done despite GFR. Dr. Zavala believes that knowing level of obstruction outweighs possible renal issues. Dr. Zavala also requests Heparin bolus and drip to be done. Dr. Waldrop made aware and agrees. Heparin ordered. IV NS bolus and hydration ordered. 0115 CTA RESULTS Findings: Significantly distended bladder, unchanged. Uncomplicated colonic diverticulosis, unchanged. Moderate left hydroureteronephrosis is unchanged secondary to distended bladder and possible reflux disease. Small sliding hiatal hernia. Calcified atheromatous plaques in the celiac, superior and inferior mesenteric arteries with mild multifocal stenosis. Mild multifocal stenosis of the left common iliac artery. Moderate multifocal stenosis of the left internal iliac artery. Mild multifocal stenosis of the left external iliac artery. Mild multifocal stenosis of the left common femoral artery. Moderate multifocal stenosis of the left superficial femoral artery. Moderate stenosis of the mid aspect of the left superficial femoral artery with moderate intraluminal stenosis of the corresponding stent. Moderate stenosis of the left popliteal artery. Moderate to severe multifocal stenosis of the left leg arteries. Mild focal stenosis of the right common iliac artery. Moderate multifocal stenosis of the right internal iliac artery. Mild multifocal stenosis of the right external iliac artery. Severe stenosis of the right common femoral artery. Moderate multifocal stenosis of the right superficial femoral artery. Mild multifocal stenosis of the right deep femoral artery. Severe stenosis of the right popliteal artery. Multilevel severe stenosis of the right leg arteries Impression: Significant multifocal stenosis, unchanged. Electronically signed on Sep 08, 2018 12:46:28 AM EST by: Lynda Plascencia M.D., Certified by NATALIA, K, Neuroradiology Pt. still having pain. Valium 5mg PO, lidoderm patch ordered. Previous CTA indicates R common femoral artery is unremarkable but today's CT shows severe stenosis of the same artery. No mention of R DP artery either. Previous CT R DP artery was unremarkable. Multiple calls made to contact Dr. Plascencia but no call back. Spoke with Kim (director at [facility]) who recommends resending CT for reinterpretation. Time: 0516 CT ADDENDUM When compared to the prior exam the moderate stenosis of the right common femoral artery on the prior CT scan performed on 08/06/2018 demonstrates subocclusive stenosis/complete short segment occlusion on the current exam. Moderate multifocal stenosis of the right dorsalis pedis artery. Electronically signed on Sep 08, 2018 5:16:57 AM EST by: Lynda Plascencia M.D., Certified by NATALIA, MSK, Neuroradiology Call placed to Dr. Zavala. Heparin infusion restarted. Pt. still c/o of pain. Morphine 4mg IV ordered. 0605 Case d/w Dr. Zavala who recommends ICU admission and no transfer at this time. Also requests Brillinta to be started. 0610 Case d/w Dr. David (PMD) who agrees with plan and care. Pt and family informed of plan and care and they agree. Scribe Attestation: Documented by Porter Sandoval acting as a scribe for Rolando DAS Provider Scribe Attestation: All medical record entries made by the Scribe were at my direction and personally dictated by me. I have reviewed the chart and agree that the record accurately reflects my personal performance of the history, physical exam, me dical decision making, and the department course for this patient. I have also personally directed, reviewed, and agree with the discharge instructions and disposition. Disposition - Clinical Impression Clinical Impression: Arterial occlusion, lower extremity - Patient ED Disposition Is Patient to be Admitted: Yes - Disposition Disposition Time: 06:10 Condition: STABLE
[2018-09-07 21:39] LABS: BASO % 0.4 % (0.0-2.0); EOS # 0.3 K/uL (0.0-0.7); EOS % 2.9 % (0.0-4.0); HEMOGLOBIN 8.9 g/dL (12.0-16.0); LYMPH # 2.7 K/uL (1.0-4.3); LYMPH % 25.2 % (20.0-40.0); MEAN CELL VOLUME 86.4 fl (81.0-99.0); MEAN CORPUSCULAR HEMOGLOBIN 28.5 pg (27.0-31.0); MEAN CORPUSCULAR HGB CONC 32.9 g/dL (33.0-37.0); MEAN PLATELET VOLUME 8.2 fl (7.2-11.7); MONO # 1.2 K/uL (0.0-0.8); MONO % 11.4 % (0.0-10.0); NEUT # 6.3 K/uL (1.8-7.0); NEUT % 60.1 % (50.0-75.0); RBC 3.13 Mil/uL (3.80-5.20); RED CELL DISTRIBUTION WIDTH 14.2 % (11.5-14.5); WHITE BLOOD COUNT 10.5 K/uL (4.8-10.8)
[2018-09-07 21:48] LABS: PROTHROMBIN TIME 11.6 Seconds (9.8-13.1)
[2018-09-07 21:49] LABS: ALB/GLOB RATIO 1.2 (1.0-2.1); ALBUMIN 4.2 g/dL (3.5-5.0); CALCIUM 9.5 mg/dL (8.4-10.2)
[2018-09-07 21:51] LABS: PARTIAL THROMBOPLASTIN TIME 34.3 Seconds (25.6-37.1)
[2018-09-07] MEDS ORDERED: Heparin 25,000units in D5W 25,000 UNITS/250 ML BAG IV SCH (23:00)
[2018-09-07] MEDS ORDERED: Sodium Chloride 0.9% 50 ML IV ONE (23:04)
[2018-09-07] MEDS ORDERED: Iodixanol 320 MG/ML 100 ML BOTTLE IV ONE (23:04)
[2018-09-07] MEDS ORDERED: Heparin 25,000units in D5W 0 UNITS/0 ML BAG IV ONE (23:09)
[2018-09-07] MEDS ORDERED: Sodium Chloride 0.9% 500 ML IV ONE (23:15)
[2018-09-08] MEDS: Sodium Chloride 0.9% 1,000 ML IV SCH ×3 (01:12→13:38)
[2018-09-08] MEDS ORDERED: Lidocaine 5% Patch TD STA (01:16)
[2018-09-08] MEDS ORDERED: Morphine 4 MG/ML VIAL IVP STA (05:37)
[2018-09-08] MEDS ORDERED: Morphine 4 MG/ML VIAL ONE (05:43)
--- NOTE | 2018-09-08 06:34 | CP.PCM.CON ---
History of Present Illness - History of Present Illness History of Present Illness: PMD: Dr. David Magnetic Resonance Technologist: Dr Zavala Reason for consult: Critical care management Chief complaint: painful cold right foot The patient was seen and examined in the ED with her daughter present HPI: The hx is obtained from patient's daughter and after review of the medical records.this is a 78 years old female brought to the ED because of worsening pain to the right lower extremity with cold right foot. She has hx of Graves Dis ease, HTN, DM with D neuropathy, PVD with Angiogram with Right femoral atherectomy, on March 2018. The daughter referred that while massaging the right leg with it being lifted up, it became white and changed to flush red when it was replaced on the bed. The right foot was cold to the touch.The right leg is painful even after the angioplasty in March 2018, done by Dr Rodriges and Atherectomy done later by Dr Fierro. Results of MRI of the lower back ordered by PMD is Pending. Denies Headache, chest pain, SOB, nausea and urinary symptoms. 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 absent: Blurred Vision, Diplopia, Floaters Ears: absent: Decreased Hearing, Tinnitus Nose/Mouth/Throat: absent: Epistaxis, Nasal Congestion, Nasal Discharge - Cardiovascular Cardiovascular: absent: Chest Pain, Edema, Leg Edema - Respiratory Respiratory: absent: Cough, Dyspnea, Wheezing, Stridor - Gastrointestinal Gastrointestinal: absent: Abdominal Pain, Constipation, Diarrhea, Nausea, Vomiting - Genitourinary Genitourinary: absent: Dysuria, Flank Pain, Hematuria, Urinary Frequency - Musculoskeletal Musculoskeletal: Muscle Weakness, Myalgias. absent: Back Pain Additional comments: Right lower extremity pain. - Integumentary Integumentary: absent: Pruritus, Skin Ulcer, Sores, Striae, Swelling - Neurological Neurological: absent: Confusion, Dizziness, Focal Weakness - Psychiatric Psychiatric: Anxiety, Depression. absent: Panic Attacks - Endocrine Endocrine: absent: Palpitations, Polydipsia, Polyphagia, Polyuria - Hematologic/Lymphatic Hematologic: absent: Easy Bleeding, Easy Bruising Past Patient History - Infectious Disease Hx of Infectious Diseases: None - Tetanus Immunizations Tetanus Immunization: Unknown - Past Medical History & Family History Past Medical History?: Yes - Past Social History Smoking Status: Former Smoker Chewing Tobacco Use: No Cigar Use: No Alcohol: None Drugs: Denies, Inhalants Home Situation {Lives}: With Family - CARDIAC Hx Congestive Heart Failure: Yes Hx Hypercholesterolemia: Yes Hx Hypertension: Yes - PULMONARY Hx Asthma: Yes Hx Chronic Obstructive Pulmonary Disease (COPD): Yes Hx Pneumonia: Yes - NEUROLOGICAL Hx Neurological Disorder: No Other/Comment: DM Neuropathy - HEENT Hx HEENT Problems: Yes (Allergic Rhinitis.) - RENAL Hx Chronic Kidney Disease: No - ENDOCRINE/METABOLIC Hx Hypothyroidism: No - HEMATOLOGICAL/ONCOLOGICAL Hx Anemia: Yes - INTEGUMENTARY Hx Dermatological Problems: No - MUSCULOSKELETAL/RHEUMATOLOGICAL Hx Arthritis: Yes Hx Osteoporosis: Yes - GASTROINTESTINAL Hx Gastrointestinal Disorders: No - GENITOURINARY/GYNECOLOGICAL Hx Genitourinary Disorders: No - PSYCHIATRIC Hx Anxiety: Yes Hx Depression: Yes - SURGICAL HISTORY Hx Surgeries: Yes Hx Angiogram: Yes (Angiogram lower extremities Dr Rodriges) Hx Orthopedic Surgery: Yes (left arm surgery) Other/Comment: R Femoral atherectomy and angioplasty Dr Zavala - ANESTHESIA Hx Anesthesia: Yes Hx Anesthesia Reactions: No Hx Malignant Hyperthermia: No Meds Allergies/Adverse Reactions: Allergies Allergy/AdvReac Type Severity Reaction Status Date / Time aspirin AdvReac RASH Verified 09/07/18 20:07 - Medications Medications: Current Medications Heparin Sodium/Dextrose (Heparin 25,000 Units/250ml In D5w) 25,000 units in 250 mls @ 8 mls/hr IV .Q24H JAIME; Protocol Last Titration: 09/08/18 05:45 Dose: 8 mls/hr Sodium Chloride (Sodium Chloride 0.9%) 1,000 mls @ 250 mls/hr IV .Q4H JAIME Stop: 09/08/18 23:15 Last Admin: 09/08/18 01:12 Dose: 250 mls/hr Physical Exam - Constitutional Appears: No Acute Distress - Head Exam Head Exam: ATRAUMATIC, NORMAL INSPECTION, NORMOCEPHALIC - Eye Exam Eye Exam: EOMI, Normal appearance Pupil Exam: NORMAL ACCOMODATION, PERRL - ENT Exam ENT Exam: Mucous Membranes Moist, Normal Exam, Normal External Ear Exam - Neck Exam Neck exam: Positive for: Full Rom, Normal Inspection. Negative for: Lymphadenopathy, Tenderness - Respiratory Exam Respiratory Exam: Clear to Auscultation Bilateral. absent: Rales, Rhonchi, Wheezes - Cardiovascular Exam Cardiovascular Exam: REGULAR RHYTHM, RRR, +S1, +S2. absent: Gallop - GI/Abdominal Exam GI & Abdominal Exam: Normal Bowel Sounds, Soft. absent: Mass, Organomegaly, Tenderness Additional comments: Full. - Rectal Exam Rectal Exam: Deferred - Extremities Exam Extremities exam: Positive for: normal inspection Additional comments: Pain to the whole right lower extremity, spontaneously and worsens on movement of the right leg. - Back Exam Back exam: NORMAL INSPECTION. absent: CVA tenderness (L), CVA tenderness (R) - Neurological Exam Neurological exam: Altered, CN II-XII Intact, Oriented x3, Reflexes Normal - Psychiatric Exam Psychiatric exam: Normal Affect, Normal Mood - Skin Skin Exam: Dry, Intact Additional comments: Plantar aspect of the right foot becomes pale when the foot is elevated and returns to semi pink when leg is laid back on the bed. Right foot is cold Results - Vital Signs Recent Vital Signs: Last Vital Signs Temp 98.3 F 09/08/18 05:55 Pulse 84 09/08/18 06:25 Resp 18 09/08/18 05:55 BP 144/71 09/08/18 05:55 Pulse Ox 99 09/08/18 06:25 - Labs Result Diagrams: 09/07/18 21:20 09/07/18 21:20 Labs: Laboratory Results - last 24 hr 09/07/18 09/07/18 09/07/18 21:20 21:20 21:20 WBC 10.5 RBC 3.13 L Hgb 8.9 L Hct 27.1 L MCV 86.4 D MCH 28.5 MCHC 32.9 L RDW 14.2 Plt Count 324 MPV 8.2 Neut % (Auto) 60.1 Lymph % (Auto) 25.2 Nash % (Auto) 11.4 H Eos % (Auto) 2.9 Baso % (Auto) 0.4 Neut # (Auto) 6.3 Lymph # (Auto) 2.7 Nash # (Auto) 1.2 H Eos # (Auto) 0.3 Baso # (Auto) 0.0 PT 11.6 INR 1.0 APTT 34.3 Sodium 140 Potassium 4.9 Chloride 106 Carbon Dioxide 26 Anion Gap 13 BUN 30 H Creatinine 1.4 H Est GFR ( Amer) 44 Est GFR (Non-Af Amer) 36 POC Glucose (mg/dL) Random Glucose 94 Calcium 9.5 Total Bilirubin 0.1 L AST 29 ALT 18 Alkaline Phosphatase 86 Total Protein 7.7 Albumin 4.2 Globulin 3.5 Albumin/Globulin Ratio 1.2 Blood Type Antibody Screen BBK History Checked 09/07/18 09/08/18 21:20 04:00 WBC RBC Hgb Hct MCV MCH MCHC RDW Plt Count MPV Neut % (Auto) Lymph % (Auto) Nash % (Auto) Eos % (Auto) Baso % (Auto) Neut # (Auto) Lymph # (Auto) Nash # (Auto) Eos # (Auto) Baso # (Auto) PT INR APTT Sodium Potassium Chloride Carbon Dioxide Anion Gap BUN Creatinine Est GFR ( Amer) Est GFR (Non-Af Amer) POC Glucose (mg/dL) 135 H Random Glucose Calcium Total Bilirubin AST ALT Alkaline Phosphatase Total Protein Albumin Globulin Albumin/Globulin Ratio Blood Type A POSITIVE Antibody Screen Negative BBK History Checked Patient has bt - Imaging and Cardiology CTA Abdomen and lower extremities Status: Report reviewed by me Additional comment: CTA RESULTS Findings: Significantly distended bladder, unchanged. Uncomplicated colonic diverticulosis, unchanged. Moderate left hydroureteronephrosis is unchanged secondary to distended bladder and possible reflux disease. Small sliding hiatal hernia. Calcified atheromatous plaques in the celiac, superior and inferior mesenteric arteries with mild multifocal stenosis. Mild multifocal stenosis of the left common iliac artery. Moderate multifocal stenosis of the left internal iliac artery. Mild multifocal stenosis of the left external iliac artery. Mild multifocal stenosis of the left common femoral artery. Moderate multifocal stenosis of the left superficial femoral artery. Moderate stenosis of the mid aspect of the left superficial femoral artery with moderate intraluminal stenosis of the corresponding stent. Moderate stenosis of the left popliteal artery. Moderate to severe multifocal stenosis of the left leg arteries. Mild focal stenosis of the right common iliac artery. Moderate multifocal stenosis of the right internal iliac artery. Mild multifocal stenosis of the right external iliac artery. Severe stenosis of the right common femoral artery. Moderate multifocal stenosis of the right superficial femoral artery. Mild multifocal stenosis of the right deep femoral artery. Severe stenosis of the right popliteal artery. Multilevel severe stenosis of the right leg arteries Impression: Significant multifocal stenosis, unchanged. CTA abdomen ADDENDUM Additional comment: CT ADDENDUM When compared to the prior exam the moderate stenosis of the right common femoral artery on the prior CT scan performed on 08/06/2018 demonstrates subocclusive stenosis/complete short segment occlusion on the current exam. Moderate multifocal stenosis of the right dorsalis pedis artery. Assessment & Plan - Assessment and Plan (Free Text) Assessment: #. PVD with Partial Right Femoral Artery occlusion #. Anemia #. CKD III #. DM insulin requring #. COPD Stable #. Anxiety and depressive disorder Plan: 78 years old female brought to the ED because of worsening pain to the right lower extremity with cold right foot. She has hx HTN, DM with D neuropathy, PVD with Angiogram with Right femoral atherectomy, on March 2018. #. PVD with Partial Right Femoral Artery occlusion - Consult Dr Zavala Magnetic Resonance Technologist - Heparin - Brilinta - Crestor - Pain management #. Normocytic Anemia - Follow HB #. CKD III - Follow renal labs #. DM insulin requiring - HbA1c 7.8 on 05/21/18 - Levemir - Lispro Insulin sliding scale according to sliding scale #. COPD Stable - Bronchodilators #. DVT prophylaxis: Patient on IV Heparin . #. Code Status: full - Date & Time Date: 09/08/18 Time: 06:34
[2018-09-08] MEDS ORDERED: Ergocalciferol 50,000 Intl Units Cap PO SCH (07:15)
[2018-09-08] MEDS ORDERED: Oxycodone/Acetaminophen 5/325 mg Tab ONE (08:33)
[2018-09-08] MEDS: Oxycodone/Acetaminophen 5/325 mg Tab PO PRN ×3 (08:33→22:29)
--- NOTE | 2018-09-08 08:38 | RAD ---
Date of service: 09/08/2018 HISTORY: clearance COMPARISON: Portable chest 05/18/2018. FINDINGS: LUNGS: No active pulmonary disease. PLEURA: No significant pleural effusion identified, no pneumothorax apparent. CARDIOVASCULAR: No aortic atherosclerotic calcification present. Normal cardiac size. No pulmonary vascular congestion. OSSEOUS STRUCTURES: No significant abnormalities. VISUALIZED UPPER ABDOMEN: Normal. OTHER FINDINGS: None. IMPRESSION: No interval acute cardiopulmonary disease appreciated.
[2018-09-08] MEDS: Pantoprazole 40 mg EC Tab PO SCH (10:14)
[2018-09-08] MEDS: Insulin Lispro (humaLOG) 100 Units/ml Inj SC SCH ×4 (12:30→22:00)
--- NOTE | 2018-09-08 14:20 | CT ---
Date of service: 09/07/2018 PROCEDURE: CT Angiography Abdomen, Pelvis and Lower Extremity with Contrast HISTORY: R LEG PAIN; HX OF PAD COMPARISON: None available. TECHNIQUE: Technique: CT angiography of the abdomen, pelvis and bilateral lower extremities performed in the arterial phase of enhancement. Coronal and sagittal reformats, and well as rotating MIP images of the vessels generated at the workstation. Patient's GFR is 36 with median of 30 and creatinine of 1.4. Referring clinician as well as Drs. Waldrop and Lucas aware of risks to renal function in giving iodinated intravenous contrast, deeming this examination medically necessary. Intravenous contrast dose: Visipaque 320, 85 cc Radiation dose: Total exam DLP = 1016.21 mGy-cm. This CT exam was performed using one or more of the following dose reduction techniques: Automated exposure control, adjustment of the mA and/or kV according to patient size, and/or use of iterative reconstruction technique. FINDINGS: CT ANGIOGRAPHY: ABDOMINAL AORTA:: Non aneurysmal partially calcified atherosclerotic abdominal aorta patent through its bifurcation. MAJOR AORTIC BRANCHES: Celiac [place]: Patent but atherosclerotic without high-grade stenosis. Superior mesenteric artery: Patent but atherosclerotic without high-grade stenosis. Inferior mesenteric artery: Patent but atherosclerotic. Renal arteries: Widely patent without significant stenosis. PELVIC ARTERIES: Right Common Iliac: Calcified atherosclerosis without significant stenosis. Right External Iliac: Calcified atherosclerosis without significant stenosis. Right Internal Iliac: Calcified atherosclerosis without significant stenosis. Left Common Iliac: Calcified atherosclerosis without significant stenosis. Left External Iliac:Calcified atherosclerosis without significant stenosis. Left Internal Iliac: Calcified atherosclerosis without significant stenosis. RIGHT LOWER EXTREMITY ARTERIES: Right Common Femoral: High-grade stenosis or possible occlusion in a very short segment. Right Superficial Femoral: Multifocal high-grade stenoses a proximal mid and distal segments Right Profunda Femoris: Multifocal stenoses present. Right Popliteal:Multifocal high-grade stenoses identified. Right Anterior Tibial: Likely occlusion throughout the majority with extensive calcified atherosclerosis appreciated. Right Tibioperoneal Trunk: Moderate mid and distal segmental stenoses. Right Posterior Tibial: Occluded proximally with extensive calcified plaque diffusely noted. Right Peroneal: Multifocal high-grade stenoses, potentially patent to the ankle however. Right dorsalis pedis : Multifocal high-grade stenoses. LEFT LOWER EXTREMITY ARTERIES: Left Common Femoral: Calcified atherosclerotic plaque without significant stenosis apparent. Patent through bifurcation. Left Superficial Femoral: Moderate to severe proximal stenosis at origin. Multifocal high-grade stenosis is scattered throughout the mid and distal segments as well. Left Profunda Femoris: Multifocal moderate stenoses. Left Popliteal: Multifocal stenoses scattered throughout. Appears patent throughout nevertheless. Left Anterior Tibial: Moderate proximal and multiple high-grade segmental stenoses but patent to the ankle. Left Tibioperoneal Trunk: Moderate segmental stenoses but patent. Left Posterior Tibial: Likely occluded proximally without distal reconstitution. Extensive calcified atherosclerotic plaque is identified segmentally. Left Peroneal: Likely occluded at proximal and mid segments with distal reconstitution identified moderately. Left Dorsalis pedis: Patent without severe stenosis. NON-ANGIOGRAPHIC ASPECT OF THE EXAM: LOWER THORAX: Mild hiatal hernia identified. Cardiomegaly evident. LIVER: Hepatic steatosis without focal mass or intrahepatic biliary dilatation. GALLBLADDER AND BILE DUCTS: Unremarkable. PANCREAS: Unremarkable. No gross lesion or ductal dilatation. SPLEEN: Unremarkable. ADRENALS: Unremarkable. No mass. KIDNEYS AND URETERS: Mild left hydroureteronephrosis presumably on a hydrostatic basis as no radiodense urolithiasis identified throughout the left ureter. However, there is no right hydroureteronephrosis and clinical correlation is recommended as distal left ureteral lesion or lucent calculus may be obstructing the left ureter. No definite radiodense urolithiasis bilaterally. STOMACH AND BOWEL: Stomach is collapsed. There is no bowel obstruction appreciated or Carole colic or perienteric reactive change. Prominent retained fecal material scattered throughout the colon suspicious for constipation. APPENDIX: Not identified. PERITONEUM: Unremarkable. No free fluid. No free air. LYMPH NODES: Unremarkable. No enlarged lymph nodes. BLADDER: Marked urinary bladder distention without mural thickening evident. REPRODUCTIVE: Unremarkable. BONES: No acute fracture. OTHER FINDINGS: None. IMPRESSION: 1. Extensive aortic iliac atherosclerotic changes without significant stenosis in the abdomen or pelvis. 2. 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 Poor runoff bilaterally, right worse than left as discussed above. 3. Abdominal findings as discussed above.
--- NOTE | 2018-09-08 14:27 | CP.PCM.HP ---
History of Present Illness - History of Present Illness History of Present Illness: CC: R leg pain. 78 y/o F with extensive chronic medical condition, including: Hx PVD with recent Angiogram and R Femoral Aterectomy, Hx PAD, Graves Disease, HTN, COPD, DMII, D Neuropathy, Osteoporosis. Pt came to ER [facility] [place] on 09/07/18 to be evaluated for R leg pain, worsening symptoms 2 days REVENUE LIAISON with no improvement. As per, She c/o of having R leg pain since she had R Femoral Atherectomy on March 2018, gradually increasing, on evaluation in the ER, Pt with dull/aching pain, constant, moderate to severe intensity 5-10: 10, from 2 days REVENUE LIAISON with no relief, radiated from leg up to R hip, down to foot, associated to coldness and decreased sensation in her R leg to foot. Pt was using Percocet at home with no relief. Worsening symptoms: Weak gait. Aggravated factor: Walking. Pt denied: fever, chills, n/v/d, abdominal pain, urinary symptoms, CP, headache, SOB, cough, sick contact, recent travel out of [facility]. Abdominal Angiography: Extensive Aortic Ileac atherosclerotic changes. Severe b/l SFA disease, including b/l Popliteal arteries, R>L, poor runoff bilaterally R worse th an left CXR: No acute cardiopulmonary disease. Present on Admission - Present on Admission Any Indicators Present on Admission: Yes History of DVT/PE: Yes Review of Systems - Constitutional Constitutional: Weakness - EENT Eyes: Other (negative) Ears: Other (negative) Nose/Mouth/Throat: Other (negative) - Cardiovascular Cardiovascular: Rapid Heart Rate - Respiratory Respiratory: Other (negative) - Gastrointestinal Gastrointestinal: Other (negative) - Genitourinary Genitourinary: Other (negative) - Musculoskeletal Musculoskeletal: Arthralgias, Radiating Pain into Limb, Other (R leg pain) - Integumentary Integumentary: Other (negative) - Neurological Neurological: Other (negative) - Psychiatric Psychiatric: Anxiety, Depression - Endocrine Endocrine: Other (negative) - Hematologic/Lymphatic Hematologic: Other (negative) Past Patient History - Infectious Disease Hx of Infectious Diseases: None - Tetanus Immunizations Tetanus Immunization: Unknown - Past Medical History & Family History Past Medical History?: Yes Pertinent Family History: Unknown - Past Social History Smoking Status: Former Smoker Chewing Tobacco Use: No Cigar Use: No Alcohol: None Drugs: Denies, Inhalants Home Situation {Lives}: With Family - CARDIAC Hx Cardiac Disorders: Yes Hx Hypercholesterolemia: Yes Hx Hypertension: Yes - PULMONARY Hx Respiratory Disorders: Yes Hx Asthma: Yes Hx Chronic Obstructive Pulmonary Disease (COPD): Yes Hx Pneumonia: Yes - NEUROLOGICAL Hx Neurological Disorder: Yes Other/Comment: DM Neuropathy - HEENT Hx HEENT Problems: Yes (Allergic Rhinitis.) - RENAL Hx Chronic Kidney Disease: No - ENDOCRINE/METABOLIC Hx Endocrine Disorders: Yes Hx Diabetes Mellitus Type 2: Yes Hx Hypothyroidism: No - HEMATOLOGICAL/ONCOLOGICAL Hx Blood Disorders: Yes Hx Anemia: Yes - INTEGUMENTARY Hx Dermatological Problems: No - MUSCULOSKELETAL/RHEUMATOLOGICAL Hx Musculoskeletal Disorders: Yes Hx Arthritis: Yes Hx Osteoporosis: Yes - GASTROINTESTINAL Hx Gastrointestinal Disorders: No - GENITOURINARY/GYNECOLOGICAL Hx Genitourinary Disorders: No - PSYCHIATRIC Hx Psychophysiologic Disorder: Yes Hx Anxiety: Yes Hx Depression: Yes - SURGICAL HISTORY Hx Surgeries: Yes Hx Angiogram: Yes (Angiogram lower extremities Dr Rodriges) Hx Orthopedic Surgery: Yes (left arm surgery) Other/Comment: R Femoral atherectomy and angioplasty Dr Zavala - ANESTHESIA Hx Anesthesia: Yes Hx Anesthesia Reactions: No Hx Malignant Hyperthermia: No Meds Allergies/Adverse Reactions: Allergies Allergy/AdvReac Type Severity Reaction Status Date / Time aspirin AdvReac RASH Verified 09/07/18 20:07 Physical Exam - Constitutional Appears: No Acute Distress - Head Exam Head Exam: NORMAL INSPECTION - Eye Exam Eye Exam: PERRL - ENT Exam ENT Exam: Normal Exam - Neck Exam Neck exam: Positive for: Normal Inspection - Respiratory Exam Respiratory Exam: NORMAL BREATHING PATTERN - Cardiovascular Exam Cardiovascular Exam: REGULAR RHYTHM - GI/Abdominal Exam GI & Abdominal Exam: Normal Bowel Sounds, Soft - Extremities Exam Additional comments: tenderness RLE, warm, pedal pulses decreased, decreased sensation R L leg-feet - Back Exam Back exam: NORMAL INSPECTION - Neurological Exam Neurological exam: Alert, Oriented x3 Additional comments: No focal motor deficit, decreased sensation R L leg-feet unsteady gait. - Psychiatric Exam Psychiatric exam: Anxious, Depressed - Skin Skin Exam: Warm Results - Vital Signs Recent Vital Signs: Last Vital Signs Temp 98.3 F 09/08/18 07:39 Pulse 96 H 09/08/18 10:10 Resp 19 09/08/18 07:39 BP 129/70 09/08/18 10:10 Pulse Ox 100 09/08/18 07:39 reviewed Arie - Labs Result Diagrams: 09/12/18 04:25 09/12/18 04:25 Labs: Laboratory Results - last 24 hr 09/07/18 09/07/18 09/07/18 21:20 21:20 21:20 WBC 10.5 RBC 3.13 L Hgb 8.9 L Hct 27.1 L MCV 86.4 D MCH 28.5 MCHC 32.9 L RDW 14.2 Plt Count 324 MPV 8.2 Neut % (Auto) 60.1 Lymph % (Auto) 25.2 [place] % (Auto) 11.4 H Eos % (Auto) 2.9 Baso % (Auto) 0.4 Neut # (Auto) 6.3 Lymph # (Auto) 2.7 [place] # (Auto) 1.2 H Eos # (Auto) 0.3 Baso # (Auto) 0.0 PT 11.6 INR 1.0 APTT 34.3 Sodium 140 Potassium 4.9 Chloride 106 Carbon Dioxide 26 Anion Gap 13 BUN 30 H Creatinine 1.4 H Est GFR ( Amer) 44 Est GFR (Non-Af Amer) 36 POC Glucose (mg/dL) Random Glucose 94 Calcium 9.5 Total Bilirubin 0.1 L AST 29 ALT 18 Alkaline Phosphatase 86 Total Protein 7.7 Albumin 4.2 Globulin 3.5 Albumin/Globulin Ratio 1.2 Blood Type Antibody Screen BBK History Checked 09/07/18 09/08/18 09/08/18 21:20 04:00 07:49 WBC RBC Hgb Hct MCV MCH MCHC RDW Plt Count MPV Neut % (Auto) Lymph % (Auto) [place] % (Auto) Eos % (Auto) Baso % (Auto) Neut # (Auto) Lymph # (Auto) [place] # (Auto) Eos # (Auto) Baso # (Auto) PT INR APTT Sodium Potassium Chloride Carbon Dioxide Anion Gap BUN Creatinine Est GFR ( Amer) Est GFR (Non-Af Amer) POC Glucose (mg/dL) 135 H 238 H Random Glucose Calcium Total Bilirubin AST ALT Alkaline Phosphatase Total Protein Albumin Globulin Albumin/Globulin Ratio Blood Type A POSITIVE Antibody Screen Negative BBK History Checked Patient has bt 09/08/18 09/08/18 11:54 12:15 WBC RBC Hgb Hct MCV MCH MCHC RDW Plt Count MPV Neut % (Auto) Lymph % (Auto) [place] % (Auto) Eos % (Auto) Baso % (Auto) Neut # (Auto) Lymph # (Auto) [place] # (Auto) Eos # (Auto) Baso # (Auto) PT INR APTT 43.6 H Sodium Potassium Chloride Carbon Dioxide Anion Gap BUN Creatinine Est GFR ( Amer) Est GFR (Non-Af Amer) POC Glucose (mg/dL) 304 H Random Glucose Calcium Total Bilirubin AST ALT Alkaline Phosphatase Total Protein Albumin Globulin Albumin/Globulin Ratio Blood Type Antibody Screen BBK History Checked reviewed J.P. - Impressions Impression: Abdominal Angiography: reviewed J.P.. - Imaging and Cardiology Chest x-ray Status: Report reviewed by me (Arie) Assessment & Plan (1) Right leg pain Status: Acute Priority: High (2) Arterial occlusion, lower extremity Status: Acute Priority: High Comment: R Common Femoral high grade stenosis or possible occlusion. Multifocal stenosis R L L/E. Hx Left Femoral stent (3) DMII (diabetes mellitus, type 2) Status: Chronic Priority: High (4) HTN (hypertension) Status: Chronic Priority: Medium (5) History of atherectomy Status: Chronic Priority: High Comment: R Femoral March (6) S/P angioplasty Status: Chronic Priority: High (7) COPD (chronic obstructive pulmonary disease) Status: Chronic Priority: Medium (8) PVD (peripheral vascular disease) Status: Chronic Priority: Medium (9) Osteoarthritis Status: Chronic (10) Depression Status: Chronic Priority: Medium (11) Anxiety Status: Chronic Priority: High (12) Hyperglycemia due to type 2 diabetes mellitus Status: Acute Priority: High (13) Diabetic neuropathy Status: Acute - Assessment and Plan (Free Text) Plan: F/U EKG, Continue Percocet, IV Heparin, Brilinta, Flexeril, Humalog, Plavix, Singulair and rest of Tx, PT, OT, Cardiology consult appreciated. Critical care time: 60 min. - Date & Time Date: 09/08/18
--- NOTE | 2018-09-08 14:34 | PN ---
DATE: 09/08/2018 CRITICAL CARE PROGRESS NOTE. LOCATION: The patient in ICU, bed 422. TIME SPENT: Thirty-five minutes. The patient is seen, evaluated at the bedside. Past medical, surgical, family, and social history are reviewed. SUBJECTIVE: This is a 78-year-old female with history significant for diabetes mellitus type 2, diabetic neuropathy, hypertension, peripheral vascular disease, status post arthrectomy in 03/2018, admitted through the emergency room, complaining of pain in the right lower extremity with a cold right foot. Angiogram showed right femoral artery occlusion, consulted with Cardiology, Dr. Zavala. Currently on heparin drip, admitted to ICU for further evaluation. REVIEW OF SYSTEMS: No fever;, chills, cough, shortness of breath. Complaining of pain, worse on the right than the left. PHYSICAL EXAMINATION: VITAL SIGNS: Temperature 98.3, heart rate 91 and regular, blood pressure 129/70, respiratory rate 19, and saturation 100% on room air. Intake and output not recorded. HEAD, EARS, EYES, NOSE, AND THROAT: Atraumatic and normocephalic. Pupils are equal, round, and reactive to light and accommodation. Extraocular muscles intact. Conjunctivae are pale. Sclerae are white. NECK: Supple. CHEST: Bilateral breath sounds. Clear to auscultation. HEART: Rhythm regular, S1 and S2 normal. No audible murmur. ABDOMEN: Bowel sounds are present and soft. EXTREMITIES: Cold, mild warmth to touch. DP diminished in intensity. NEUROLOGIC: Reduced sensation in both lower extremities. No cranial nerve deficits. No motor deficits. MEDICATIONS: Current medications include amlodipine 10 mg p.o. daily, Lipitor 40 mg p.o. daily, Plavix 75 mg p.o. daily, Flexeril 5 mg 3 times daily, ergocalciferol 1 capsule p.o. every week, heparin drip as per protocol, Levemir 30 units subcutaneously at bedtime, Humalog lispro a.c. and at bedtime, Cozaar 50 mg p.o. daily, Remeron 15 mg p.o. daily, Singulair 10 mg p.o. daily, oxycodone with Tylenol 1 tablet every 6 hours p.r.n., Protonix 40 mg p.o. daily, Lyrica 50 mg p.o. at bedtime, sodium chloride at 250 mL per hour, and Brilinta 90 mg p.o. twice daily. IMPRESSION AND PLAN: 1. Neurologic: Diabetic neuropathy. 2. Pulmonary: No acute issues. 3. Cardiac: Hypertension, controlled. 4. Gastrointestinal: No acute issues. 5. Vascular: Peripheral vascular disease, status post arthrectomy and percutaneous transluminal coronary angioplasty of right superficial femoral artery, admitted with partial occlusion of the right femoral artery. Continue heparin drip. 6. Hematology: No leukocytosis. Anemia of chronic disease, normal platelet count. Renal, acute on chronic kidney disease secondary to diabetes, hypertension, and poor renal perfusion. 7. Endocrinology: Diabetes, type 2. Continue insulin coverage. Maintain blood sugar below 180 mg. Rolando Rodriguez MD [facility]
--- NOTE | 2018-09-08 15:01 | CARD ---
APPROVED REPORT Date of service: 09/07/2018 EKG Measurement Heart [id number] <Conclusion> Normal sinus rhythm Normal ECG
[2018-09-08] MEDS: Insulin Detemir 100 Units/ml Inj SC SCH (22:39)
[2018-09-09] MEDS: Sodium Chloride 0.9% 1,000 ML IV SCH (02:56)
[2018-09-09] MEDS: Oxycodone/Acetaminophen 5/325 mg Tab PO PRN ×4 (03:14→22:25)
[2018-09-09 05:57] LABS: HEMOGLOBIN 8.6 g/dL (12.0-16.0); MEAN CELL VOLUME 87.9 fl (81.0-99.0); MEAN CORPUSCULAR HEMOGLOBIN 28.5 pg (27.0-31.0); MEAN CORPUSCULAR HGB CONC 32.5 g/dL (33.0-37.0); RBC 3.03 Mil/uL (3.80-5.20); RED CELL DISTRIBUTION WIDTH 14.1 % (11.5-14.5); WHITE BLOOD COUNT 8.6 K/uL (4.8-10.8)
[2018-09-09 06:25] LABS: CALCIUM 8.8 mg/dL (8.4-10.2)
[2018-09-09] MEDS: Insulin Lispro (humaLOG) 100 Units/ml Inj SC SCH ×7 (06:42→22:22)
[2018-09-09] MEDS ORDERED: Heparin 25,000units in D5W 25,000 UNITS/250 ML BAG IV SCH (07:30)
[2018-09-09] MEDS: Pantoprazole 40 mg EC Tab PO SCH (08:46)
[2018-09-09 11:53] VITALS: BMI 28.3
--- NOTE | 2018-09-09 13:18 | PN ---
DATE: 09/09/2018 LOCATION: ICU, Bed 422. TIME SPENT: 35 minutes. The patient is seen and evaluated at the bedside. Past medical, surgical, family and social history reviewed. SUBJECTIVE: A 78-year-old female, reformed smoker, with diabetes mellitus type 2, diabetic neuropathy, hypertension, peripheral vascular disease, status post atherectomy in 03/2018, admitted through emergency room complaining of pain In the right lower extremity with cold right foot. Angiogram showed semi-occlusion of the right femoral artery in addition to multiple stenosis, currently on heparin drip as per protocol. Overnight, afebrile. Telemetry sinus rhythm, normotensive. This morning alert, awake, follows commands appropriately. Complaining of pain on both lower extremities, more so on the right than left. PHYSICAL EXAMINATION: VITAL SIGNS: Temperature 97.8, heart rate 93 and regular, blood pressure 137/55, mean arterial pressure 82, respiratory rate 15, saturation 100% on room air. Intake 2000, output 150 mL. Weight of 155 pounds. HEAD, EYES, EARS, NOSE, AND THROAT: Pupils are reactive. Extraocular muscles intact. Conjunctivae are pale. Sclerae are white. NECK: Supple. CHEST: Bilateral breath sounds, clear to auscultation. HEART: Rhythm regular, S1 and S2 normal intensity. No audible murmur. ABDOMEN: Bowel sounds present. Soft. EXTREMITIES: Warm to touch. DP diminished in intensity. SKIN: Without any rash. NEUROLOGIC: Reduced sensation in both lower extremities. No cranial nerve deficit. No motor deficit. CURRENT MEDICATIONS: Amlodipine 10 mg p.o. daily, Lipitor 40 mg p.o. daily, Plavix 75 mg p.o. daily, Flexeril 5 mg three times daily, ergocalciferol 1 capsule every week, heparin drip as per protocol, Levemir 30 units subcutaneous at bedtime, Humalog lispro before meals and at bedtime, Cozaar 50 mg p.o. daily, Remeron 15 mg p.o. daily, Singulair 10 mg p.o. daily, oxycodone with Tylenol 1 tablet every 6 hours p.r.n., Protonix 40 p.o. daily, Lyrica 50 mg p.o. daily at bedtime, sodium chloride at 125 mL per hour, Brilinta 90 mg p.o. twice daily. LABORATORY DATA: WBC 8.6, hemoglobin 8.6, hematocrit 26.6, platelet count of 295. SMA-7: Sodium 139, potassium 4.9, chloride 109, CO2 of 21, blood urea nitrogen 20, creatinine 1.1, random glucose 235. Microbiology, none reported. Chest x-ray on 09/08/2018, no interval acute cardiopulmonary disease. Extensive aortic iliac atherosclerotic changes without significant stenosis in the abdomen or pelvis, severe bilateral SFA disease including bilateral popliteal arteries, poor runoff bilaterally, right worse than the left. ASSESSMENT AND PLAN: 1. Neurologic: Diabetic neuropathy. 2. Pulmonary: No acute issues. 3. Cardiac: Hypertension, controlled. Peripheral vascular disease, status post atherectomy and percutaneous transluminal coronary angioplasty of right superficial femoral artery, now with a partial occlusion of the right femoral artery, on heparin drip. 4. Gastrointestinal: No acute issues. 5. Hematology: No leukocytosis, anemia of chronic disease, normal platelet count. 6. Renal: [id number] kidney disease secondary to diabetes and hypertension. 7. Endocrinology: Diabetes mellitus type 2, complicated with diabetic neuropathy and peripheral vascular disease. Continue Levemir. Accu-Chek with regular insulin coverage and insulin lispro 15 units before meals and at bedtime. Rolando Rodriguez MD
--- NOTE | 2018-09-09 14:13 | CP.PCM.PN ---
Subjective - Date & Time of Evaluation Date of Evaluation: 09/09/18 - Subjective Subjective: F/U Arterial occlusion RLE. Awake, calm now, no A/D, on Percocet for pain. Objective - Vital Signs/Intake and Output Vital Signs (last 24 hours): Temp Pulse Resp BP Pulse Ox 97.8 F 93 H 15 137/55 L 100 09/09/18 08:00 09/09/18 10:00 09/09/18 10:00 09/09/18 10:00 09/09/18 10:00 Intake and Output: 09/09/18 09/09/18 06:59 18:59 Intake Total 1000 120 Output Total 150 Balance 1000 -30 - Medications Medications: Current Medications Amlodipine Besylate (Norvasc) 10 mg PO DAILY [facility] Last Admin: 09/09/18 08:50 Dose: 10 mg Atorvastatin Calcium (Lipitor) 40 mg PO DAILY [facility] Last Admin: 09/09/18 08:46 Dose: 40 mg Clopidogrel Bisulfate (Plavix) 75 mg PO DAILY [facility] Last Admin: 09/09/18 08:46 Dose: 75 mg Cyclobenzaprine HCl (Flexeril) 5 mg PO TID [facility] Last Admin: 09/09/18 13:31 Dose: 5 mg Ergocalciferol (Drisdol 50,000 Intl Units Cap) 1 cap PO QWK [facility] Heparin Sodium/Dextrose (Heparin 25,000 Units/250ml In D5w) 25,000 units in 250 mls @ 8 mls/hr IV .Q24H [facility]; Protocol Last Admin: 09/09/18 09:55 Dose: 8 mls/hr Insulin Detemir (Levemir) 30 units SC HS [facility] Last Admin: 09/08/18 22:39 Dose: Not Given Insulin Human Lispro (Humalog) 0 units SC ACHS [facility]; Protocol Last Admin: 09/09/18 13:30 Dose: 2 u Insulin Human Lispro (Humalog) 15 units SC AC [facility] Last Admin: 09/09/18 13:29 Dose: 15 unit Losartan Potassium (Cozaar) 50 mg PO DAILY [facility] Last Admin: 09/09/18 08:47 Dose: 50 mg Mirtazapine (Remeron) 15 mg PO DAILY [facility] Last Admin: 09/09/18 08:51 Dose: 15 mg Montelukast Sodium (Singulair) 10 mg PO DAILY [facility] Last Admin: 09/09/18 08:46 Dose: 10 mg Oxycodone/Acetaminophen (Percocet 5/325 Mg Tab) 1 tab PO Q6H PRN PRN Reason: Pain, moderate (4-7) Stop: 09/11/18 07:49 Last Admin: 09/09/18 03:14 Dose: 1 tab Oxycodone/Acetaminophen (Percocet 5/325 Mg Tab) 2 tab PO Q6 PRN PRN Reason: Pain, severe (8-10) Stop: 09/11/18 07:51 Last Admin: 09/09/18 10:01 Dose: 2 tab Pantoprazole Sodium (Protonix Ec Tab) 40 mg PO DAILY [facility] Last Admin: 09/09/18 08:46 Dose: 40 mg Pregabalin (Lyrica) 50 mg PO HS [facility] Last Admin: 09/09/18 00:15 Dose: 50 mg Ticagrelor (Brilinta) 90 mg PO BID [facility] Last Admin: 09/09/18 08:46 Dose: 90 mg - Labs Labs: 09/09/18 05:50 09/09/18 05:50 PT 11.6 Seconds (9.8-13.1) 09/07/18 21:20 INR 1.0 09/07/18 21:20 APTT 42.2 Seconds (25.6-37.1) H 09/09/18 09:06 - Constitutional Appears: No Acute Distress - Head Exam Head Exam: NORMAL INSPECTION - Eye Exam Eye Exam: PERRL - ENT Exam ENT Exam: Normal Exam - Neck Exam Neck Exam: Normal Inspection - Respiratory Exam Respiratory Exam: NORMAL BREATHING PATTERN - Cardiovascular Exam Cardiovascular Exam: REGULAR RHYTHM - GI/Abdominal Exam GI & Abdominal Exam: Soft, Normal Bowel Sounds - Extremities Exam Extremities Exam: Tenderness (RLE, pedal pulse decreased. Decreased sensation R-L feet) - Back Exam Back Exam: NORMAL INSPECTION - Neurological Exam Neurological Exam: Alert, Oriented x3 Additional comments: No focal motor deficit, decreased sensation R-L leg-feet. Unsteady gait - Psychiatric Exam Psychiatric exam: Anxious, Depressed - Skin Skin Exam: Warm Assessment and Plan (1) Arterial occlusion, lower extremity Status: Acute (2) Hyperglycemia due to type 2 diabetes mellitus Status: Acute (3) Diabetic neuropathy Status: Acute (4) Leg pain Status: Acute (5) HTN (hypertension) Status: Chronic (6) History of atherectomy Status: Chronic (7) PVD (peripheral vascular disease) Status: Chronic (8) S/P angioplasty Status: Chronic (9) COPD (chronic obstructive pulmonary disease) Status: Chronic (10) Depression Status: Chronic (11) Anxiety Status: Chronic (12) Osteoarthritis Status: Acute - Assessment and Plan (Free Text) Plan: Continue Percocet, Flexeril, Lyrica, Brillinta and rest of tx. Cardiology consult. Critical care time: 32 min.
[2018-09-09] MEDS: Insulin Detemir 100 Units/ml Inj SC SCH (22:22)
[2018-09-10 05:54] LABS: BASO % 0.5 % (0.0-2.0); EOS # 0.4 K/uL (0.0-0.7); EOS % 4.9 % (0.0-4.0); HEMOGLOBIN 9.6 g/dL (12.0-16.0); LYMPH # 2.5 K/uL (1.0-4.3); LYMPH % 32.6 % (20.0-40.0); MEAN CELL VOLUME 88.4 fl (81.0-99.0); MEAN CORPUSCULAR HEMOGLOBIN 28.5 pg (27.0-31.0); MEAN CORPUSCULAR HGB CONC 32.3 g/dL (33.0-37.0); MEAN PLATELET VOLUME 8.4 fl (7.2-11.7); MONO # 0.8 K/uL (0.0-0.8); MONO % 10.6 % (0.0-10.0); NEUT % 51.4 % (50.0-75.0); NRBC % 0.1 % (0.0-0.0); RBC 3.37 Mil/uL (3.80-5.20); RED CELL DISTRIBUTION WIDTH 14.2 % (11.5-14.5); WHITE BLOOD COUNT 7.8 K/uL (4.8-10.8)
[2018-09-10 06:24] LABS: ALBUMIN 3.9 g/dL (3.5-5.0); CALCIUM 9.3 mg/dL (8.4-10.2)
--- NOTE | 2018-09-10 07:36 | CP.CCUPN ---
CCU Subjective - Physician Review Subjective (Free Text): 09/10/18 10:52 The patient was Seen/interviewed and examined by me at the bedside during ICU round, Medical records reviewed and Management issues were discussed and formulated with the house staff. Events reviewed Alert and oriented. Comfortable, NAD Pain well controlled Breathing unlabored, on room air O2 sat 100%. Denies any chest pain, SOB or Palpitations CCU Objective - Vital Signs / Intake & Output Vital Signs (Last 4 hours): Vital Signs Temp Pulse Resp BP Pulse Ox 09/10/18 06:00 89 14 140/60 100 09/10/18 04:00 98.2 F 70 11 L 119/55 L 100 Intake and Output (Last 8hrs): Intake & Output 09/09/18 09/10/18 09/10/18 22:59 06:59 14:59 Intake Total 544 64 Balance 544 64 Weight 155 lb Intake: IV 104 64 Intake, Piggyback 320 Oral 120 Other: # Voids Urine, Voided 1 1 - Physical Exam Head: Positive for: Atraumatic, Normocephalic. Negative for: Tenderness, Contusion Pupils: Positive for: PERRL Extroacular Muscles: Positive for: EOMI Conjunctiva: Positive for: Normal. Negative for: Injected, Icteric Pharnyx: Positive for: Normal Nose (Internal): Positive for: Normal Inspection Neck: Positive for: Normal Range of Motion, Trachea Midline. Negative for: Meningeal Signs, MIDLINE TENDERNESS, Paraspinal Tenderness, JVD, Lymphadenopathy, Bruit, Other Respiratory/Chest: Positive for: Clear to Auscultation, Good Air Exchange. Negative for: Respiratory Distress, Accessory Muscle Use, Wheezes Cardiovascular: Positive for: Regular Rate and Rhythm, Normal S1, S2, Peripheal Pulses Present. Negative for: Tachycardic, Bradycardic Upper Extremity: Negative for: Cyanosis, Edema Psychiatric: Positive for: Alert, Oriented x 3 - Medications Active Medications: Active Medications Generic Name Dose Route Start Last Admin Trade Name Freq PRN Reason Stop Dose Admin Amlodipine Besylate 10 mg 09/08/18 09:00 09/09/18 08:50 Norvasc PO 10 mg DAILY [facility] Administration Atorvastatin Calcium 40 mg 09/08/18 09:00 09/09/18 08:46 Lipitor PO 40 mg DAILY [facility] Administration Clopidogrel Bisulfate 75 mg 09/08/18 09:00 09/09/18 08:46 Plavix PO 75 mg DAILY [facility] Administration Cyclobenzaprine HCl 5 mg 09/08/18 09:00 09/09/18 16:36 Flexeril PO 5 mg TID [facility] Administration Docusate Sodium 100 mg 09/09/18 17:00 09/09/18 16:37 Colace PO 100 mg BID [facility] Administration Ergocalciferol 1 cap 09/08/18 07:15 Drisdol 50,000 Intl Units Cap PO QWK [facility] Insulin Detemir 30 units 09/08/18 22:00 09/09/18 22:22 Levemir SC 30 units HS [facility] Administration Insulin Human Lispro 0 units 09/08/18 07:30 09/09/18 22:22 Humalog SC Not Given ACHS [facility] Protocol Insulin Human Lispro 15 units 09/08/18 16:30 09/09/18 18:25 Humalog SC Not Given AC [facility] Losartan Potassium 50 mg 09/08/18 09:00 09/09/18 08:47 Cozaar PO 50 mg DAILY [facility] Administration Mirtazapine 15 mg 09/08/18 09:00 09/09/18 08:51 Remeron PO 15 mg DAILY [facility] Administration Montelukast Sodium 10 mg 09/08/18 09:00 09/09/18 08:46 Singulair PO 10 mg DAILY [facility] Administration Oxycodone/Acetaminophen 1 tab 09/08/18 07:48 09/09/18 03:14 Percocet 5/325 Mg Tab PO 09/11/18 07:49 1 tab Q6H PRN Administration Pain, moderate (4-7) Oxycodone/Acetaminophen 2 tab 09/08/18 07:50 09/09/18 22:25 Percocet 5/325 Mg Tab PO 09/11/18 07:51 2 tab Q6 PRN Administration Pain, severe (8-10) Pantoprazole Sodium 40 mg 09/08/18 09:00 09/09/18 08:46 Protonix Ec Tab PO 40 mg DAILY [facility] Administration Pregabalin 50 mg 09/09/18 17:00 09/09/18 16:43 Lyrica PO 50 mg BID [facility] Administration Ticagrelor 90 mg 09/08/18 17:00 09/09/18 16:36 Brilinta PO 90 mg BID [facility] Administration - Patient Studies Lab Studies: Lab Studies 09/10/18 09/10/18 09/10/18 Range/Units 05:34 04:40 04:40 WBC (4.8-10.8) K/uL RBC (3.80-5.20) Mil/uL Hgb (12.0-16.0) g/dL Hct (34.0-47.0) % MCV (81.0-99.0) fl MCH (27.0-31.0) pg MCHC (33.0-37.0) g/dL RDW (11.5-14.5) % Plt Count (130-400) K/uL MPV (7.2-11.7) fl Neut % (Auto) (50.0-75.0) % Lymph % (Auto) (20.0-40.0) % [place] % (Auto) (0.0-10.0) % Eos % (Auto) (0.0-4.0) % Baso % (Auto) (0.0-2.0) % Neut # (Auto) (1.8-7.0) K/uL Lymph # (Auto) (1.0-4.3) K/uL [place] # (Auto) (0.0-0.8) K/uL Eos # (Auto) (0.0-0.7) K/uL Baso # (Auto) (0.0-0.2) K/uL APTT 47.1 H (25.6-37.1) Seconds Sodium 140 (132-148) mmol/l Potassium 4.7 (3.6-5.0) MMOL/L Chloride 107 (98-107) mmol/L Carbon Dioxide 23 (22-30) mmol/L Anion Gap 15 (10-20) BUN 17 (7-17) mg/dl Creatinine 1.1 (0.7-1.2) mg/dl Est GFR ( Amer) 58 Est GFR (Non-Af Amer) 48 POC Glucose (mg/dL) 125 H (65-110) mg/dL Random Glucose 139 H (65-105) mg/dL Calcium 9.3 (8.4-10.2) mg/dL Total Bilirubin 0.2 (0.2-1.3) mg/dl AST 34 (14-36) U/L ALT 29 (9-52) U/L Alkaline Phosphatase 106 (38-126) U/L Total Protein 7.7 (6.3-8.2) G/DL Albumin 3.9 (3.5-5.0) g/dL Globulin 3.9 (2.2-3.9) gm/dL Albumin/Globulin Ratio 1.0 (1.0-2.1) 09/10/18 09/09/18 09/09/18 Range/Units 04:40 22:18 22:00 WBC 7.8 (4.8-10.8) K/uL RBC 3.37 L (3.80-5.20) Mil/uL Hgb 9.6 L (12.0-16.0) g/dL Hct 29.8 L (34.0-47.0) % MCV 88.4 (81.0-99.0) fl MCH 28.5 (27.0-31.0) pg MCHC 32.3 L (33.0-37.0) g/dL RDW 14.2 (11.5-14.5) % Plt Count 339 (130-400) K/uL MPV 8.4 (7.2-11.7) fl Neut % (Auto) 51.4 (50.0-75.0) % Lymph % (Auto) 32.6 (20.0-40.0) % [place] % (Auto) 10.6 H (0.0-10.0) % Eos % (Auto) 4.9 H (0.0-4.0) % Baso % (Auto) 0.5 (0.0-2.0) % Neut # (Auto) 4.0 (1.8-7.0) K/uL Lymph # (Auto) 2.5 (1.0-4.3) K/uL [place] # (Auto) 0.8 (0.0-0.8) K/uL Eos # (Auto) 0.4 (0.0-0.7) K/uL Baso # (Auto) 0.0 (0.0-0.2) K/uL APTT 49.8 H (25.6-37.1) Seconds Sodium (132-148) mmol/l Potassium (3.6-5.0) MMOL/L Chloride (98-107) mmol/L Carbon Dioxide (22-30) mmol/L Anion Gap (10-20) BUN (7-17) mg/dl Creatinine (0.7-1.2) mg/dl Est GFR ( Amer) Est GFR (Non-Af Amer) POC Glucose (mg/dL) 221 H (65-110) mg/dL Random Glucose (65-105) mg/dL Calcium (8.4-10.2) mg/dL Total Bilirubin (0.2-1.3) mg/dl AST (14-36) U/L ALT (9-52) U/L Alkaline Phosphatase (38-126) U/L Total Protein (6.3-8.2) G/DL Albumin (3.5-5.0) g/dL Globulin (2.2-3.9) gm/dL Albumin/Globulin Ratio (1.0-2.1) 09/09/18 09/09/18 09/09/18 Range/Units 16:11 15:20 10:55 WBC (4.8-10.8) K/uL RBC (3.80-5.20) Mil/uL Hgb (12.0-16.0) g/dL Hct (34.0-47.0) % MCV (81.0-99.0) fl MCH (27.0-31.0) pg MCHC (33.0-37.0) g/dL RDW (11.5-14.5) % Plt Count (130-400) K/uL MPV (7.2-11.7) fl Neut % (Auto) (50.0-75.0) % Lymph % (Auto) (20.0-40.0) % [place] % (Auto) (0.0-10.0) % Eos % (Auto) (0.0-4.0) % Baso % (Auto) (0.0-2.0) % Neut # (Auto) (1.8-7.0) K/uL Lymph # (Auto) (1.0-4.3) K/uL [place] # (Auto) (0.0-0.8) K/uL Eos # (Auto) (0.0-0.7) K/uL Baso # (Auto) (0.0-0.2) K/uL APTT 50.2 H (25.6-37.1) Seconds Sodium (132-148) mmol/l Potassium (3.6-5.0) MMOL/L Chloride (98-107) mmol/L Carbon Dioxide (22-30) mmol/L Anion Gap (10-20) BUN (7-17) mg/dl Creatinine (0.7-1.2) mg/dl Est GFR ( Amer) Est GFR (Non-Af Amer) POC Glucose (mg/dL) 85 246 H (65-110) mg/dL Random Glucose (65-105) mg/dL Calcium (8.4-10.2) mg/dL Total Bilirubin (0.2-1.3) mg/dl AST (14-36) U/L ALT (9-52) U/L Alkaline Phosphatase (38-126) U/L Total Protein (6.3-8.2) G/DL Albumin (3.5-5.0) g/dL Globulin (2.2-3.9) gm/dL Albumin/Globulin Ratio (1.0-2.1) 09/09/18 Range/Units 09:06 WBC (4.8-10.8) K/uL RBC (3.80-5.20) Mil/uL Hgb (12.0-16.0) g/dL Hct (34.0-47.0) % MCV (81.0-99.0) fl MCH (27.0-31.0) pg MCHC (33.0-37.0) g/dL RDW (11.5-14.5) % Plt Count (130-400) K/uL MPV (7.2-11.7) fl Neut % (Auto) (50.0-75.0) % Lymph % (Auto) (20.0-40.0) % [place] % (Auto) (0.0-10.0) % Eos % (Auto) (0.0-4.0) % Baso % (Auto) (0.0-2.0) % Neut # (Auto) (1.8-7.0) K/uL Lymph # (Auto) (1.0-4.3) K/uL [place] # (Auto) (0.0-0.8) K/uL Eos # (Auto) (0.0-0.7) K/uL Baso # (Auto) (0.0-0.2) K/uL APTT 42.2 H (25.6-37.1) Seconds Sodium (132-148) mmol/l Potassium (3.6-5.0) MMOL/L Chloride (98-107) mmol/L Carbon Dioxide (22-30) mmol/L Anion Gap (10-20) BUN (7-17) mg/dl Creatinine (0.7-1.2) mg/dl Est GFR ( Amer) Est GFR (Non-Af Amer) POC Glucose (mg/dL) (65-110) mg/dL Random Glucose (65-105) mg/dL Calcium (8.4-10.2) mg/dL Total Bilirubin (0.2-1.3) mg/dl AST (14-36) U/L ALT (9-52) U/L Alkaline Phosphatase (38-126) U/L Total Protein (6.3-8.2) G/DL Albumin (3.5-5.0) g/dL Globulin (2.2-3.9) gm/dL Albumin/Globulin Ratio (1.0-2.1) Laboratory Results - last 24 hr 09/09/18 09/09/18 09/09/18 09:06 10:55 15:20 WBC RBC Hgb Hct MCV MCH MCHC RDW Plt Count MPV Neut % (Auto) Lymph % (Auto) [place] % (Auto) Eos % (Auto) Baso % (Auto) Neut # (Auto) Lymph # (Auto) [place] # (Auto) Eos # (Auto) Baso # (Auto) APTT 42.2 H 50.2 H Sodium Potassium Chloride Carbon Dioxide Anion Gap BUN Creatinine Est GFR ( Amer) Est GFR (Non-Af Amer) POC Glucose (mg/dL) 246 H Random Glucose Calcium Total Bilirubin AST ALT Alkaline Phosphatase Total Protein Albumin Globulin Albumin/Globulin Ratio 09/09/18 09/09/18 09/09/18 16:11 22:00 22:18 WBC RBC Hgb Hct MCV MCH MCHC RDW Plt Count MPV Neut % (Auto) Lymph % (Auto) [place] % (Auto) Eos % (Auto) Baso % (Auto) Neut # (Auto) Lymph # (Auto) [place] # (Auto) Eos # (Auto) Baso # (Auto) APTT 49.8 H Sodium Potassium Chloride Carbon Dioxide Anion Gap BUN Creatinine Est GFR ( Amer) Est GFR (Non-Af Amer) POC Glucose (mg/dL) 85 221 H Random Glucose Calcium Total Bilirubin AST ALT Alkaline Phosphatase Total Protein Albumin Globulin Albumin/Globulin Ratio 09/10/18 09/10/18 09/10/18 04:40 04:40 04:40 WBC 7.8 RBC 3.37 L Hgb 9.6 L Hct 29.8 L MCV 88.4 MCH 28.5 MCHC 32.3 L RDW 14.2 Plt Count 339 MPV 8.4 Neut % (Auto) 51.4 Lymph % (Auto) 32.6 Sp[place] % (Auto) 10.6 H Eos % (Auto) 4.9 H Baso % (Auto) 0.5 Neut # (Auto) 4.0 Lymph # (Auto) 2.5 [place] # (Auto) 0.8 Eos # (Auto) 0.4 Baso # (Auto) 0.0 APTT 47.1 H Sodium 140 Potassium 4.7 Chloride 107 Carbon Dioxide 23 Anion Gap 15 BUN 17 Creatinine 1.1 Est GFR ( Amer) 58 Est GFR (Non-Af Amer) 48 POC Glucose (mg/dL) Random Glucose 139 H Calcium 9.3 Total Bilirubin 0.2 AST 34 ALT 29 Alkaline Phosphatase 106 Total Protein 7.7 Albumin 3.9 Globulin 3.9 Albumin/Globulin Ratio 1.0 09/10/18 05:34 WBC RBC Hgb Hct MCV MCH MCHC RDW Plt Count MPV Neut % (Auto) Lymph % (Auto) [place] % (Auto) Eos % (Auto) Baso % (Auto) Neut # (Auto) Lymph # (Auto) [place] # (Auto) Eos # (Auto) Baso # (Auto) APTT Sodium Potassium Chloride Carbon Dioxide Anion Gap BUN Creatinine Est GFR ( Amer) Est GFR (Non-Af Amer) POC Glucose (mg/dL) 125 H Random Glucose Calcium Total Bilirubin AST ALT Alkaline Phosphatase Total Protein Albumin Globulin Albumin/Globulin Ratio Fingerstick Blood Sugar Results: 125 Review of Systems - Cardiovascular Cardiovascular: absent: As Per HPI, Acrocyanosis, Chest Pain, Chest Pain at Rest, Chest Pain with Activity, Claudication, Diaphoresis, Dyspnea, Dyspnea on Exertion, Edema, Irregular Heart Rhythm, Pain Radiating to Arm/Neck/Jaw, Leg Edema, Leg Ulcers, Lightheadedness, Orthopnea, Palpitations, Paroxysmal Nocturnal Dyspnea, Pedal Edema, Radiating Pain, Rapid Heart Rate, Slow Heart Rate, Syncope, Other, UNREMARKABLE - Respiratory Respiratory: absent: As Per HPI, Cough, Dyspnea, Hemoptysis, Dyspnea on Exertion, Wheezing, Snoring, Stridor, Pain on Inspiration, Chest Congestion, Excessive Mucous Production, Change in Mucous Color, Pain with Coughing, Other, UNREMARKABLE Critical Care Progress Note - Extremities/Vascular Does the Patient have a Central Venous Catheter?: No Does the Patient need a Central Venous Catheter?: No Does the Patient have a Pryor Catheter?: No Does the Patient need a Pryor Catheter?: No - Nutrition Nutrition: Nutrition Category Date Time Status Heart Healthy Diet [DIET] Diets 09/09/18 Dinner Active Assessment/Plan (1) Arterial occlusion, lower extremity Current Visit: Yes Status: Acute Priority: High Comment: Continue Heparin drip, monitor PTT, Cardiology and vascular surgery follow up. Continue Plavix and Lipitor Pain controlled with Percocet 5/325 2 tab PO Q6 PRN (2) Diabetic neuropathy Current Visit: Yes Status: Acute (3) Right leg pain Current Visit: Yes Status: Acute Priority: High (4) Moderate COPD (chronic obstructive pulmonary disease) Current Visit: No Status: Acute Priority: Medium (5) PVD (peripheral vascular disease) Current Visit: Yes Status: Acute Priority: High
[2018-09-10] MEDS: Insulin Lispro (humaLOG) 100 Units/ml Inj SC SCH ×7 (07:38→22:40)
[2018-09-10] MEDS: Pantoprazole 40 mg EC Tab PO SCH (08:47)
[2018-09-10] MEDS: Oxycodone/Acetaminophen 5/325 mg Tab PO PRN ×2 (09:00→14:55)
--- NOTE | 2018-09-10 09:05 | CP.PCM.CON ---
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 Review of Systems - Review of Systems Systems not reviewed;Unavailable: Acuity of Condition - Constitutional Constitutional: As Per HPI - EENT Eyes: As Per HPI Ears: As Per HPI Nose/Mouth/Throat: As Per HPI - Breasts Breasts: As Per HPI - Cardiovascular Cardiovascular: As Per HPI - Respiratory Respiratory: As Per HPI - Gastrointestinal Gastrointestinal: As Per HPI - Genitourinary Genitourinary: As Per HPI - Reproductive: Female Reproductive:Female: As Per HPI - Menstruation Menstruation: As Per HPI - Musculoskeletal Musculoskeletal: As Per HPI - Integumentary Integumentary: As Per HPI - Neurological Neurological: As Per HPI - Psychiatric Psychiatric: As Per HPI - Endocrine Endocrine: As Per HPI - Hematologic/Lymphatic Hematologic: As Per HPI Past Patient History - Infectious Disease Hx of Infectious Diseases: None - Tetanus Immunizations Tetanus Immunization: Unknown - Past Medical History & Family History Past Medical History?: Yes - Past Social History Smoking Status: Former Smoker Chewing Tobacco Use: No Cigar Use: No Alcohol: None Drugs: Denies, Inhalants Home Situation {Lives}: With Family - CARDIAC Hx Cardiac Disorders: Yes Hx Hypercholesterolemia: Yes Hx Hypertension: Yes - PULMONARY Hx Respiratory Disorders: Yes Hx Asthma: Yes Hx Chronic Obstructive Pulmonary Disease (COPD): Yes Hx Pneumonia: Yes - NEUROLOGICAL Hx Neurological Disorder: Yes Other/Comment: DM Neuropathy - HEENT Hx HEENT Problems: Yes (Allergic Rhinitis.) - RENAL Hx Chronic Kidney Disease: No - ENDOCRINE/METABOLIC Hx Endocrine Disorders: Yes Hx Diabetes Mellitus Type 2: Yes Hx Hypothyroidism: No - HEMATOLOGICAL/ONCOLOGICAL Hx Blood Disorders: Yes Hx Anemia: Yes - INTEGUMENTARY Hx Dermatological Problems: No - MUSCULOSKELETAL/RHEUMATOLOGICAL Hx Musculoskeletal Disorders: Yes Hx Arthritis: Yes Hx Osteoporosis: Yes - GASTROINTESTINAL Hx Gastrointestinal Disorders: No - GENITOURINARY/GYNECOLOGICAL Hx Genitourinary Disorders: No - PSYCHIATRIC Hx Psychophysiologic Disorder: Yes Hx Anxiety: Yes Hx Depression: Yes - SURGICAL HISTORY Hx Surgeries: Yes Hx Angiogram: Yes (Angiogram lower extremities Dr Rodriges) Hx Orthopedic Surgery: Yes (left arm surgery) Other/Comment: R Femoral atherectomy and angioplasty Dr Zavala - ANESTHESIA Hx Anesthesia: Yes Hx Anesthesia Reactions: No Hx Malignant Hyperthermia: No Meds Allergies/Adverse Reactions: Allergies Allergy/AdvReac Type Severity Reaction Status Date / Time aspirin AdvReac RASH Verified 09/07/18 20:07 - Medications Medications: Current Medications Amlodipine Besylate (Norvasc) 10 mg PO DAILY [facility] Last Admin: 09/10/18 08:47 Dose: 10 mg Atorvastatin Calcium (Lipitor) 40 mg PO DAILY [facility] Last Admin: 09/10/18 08:46 Dose: 40 mg Clopidogrel Bisulfate (Plavix) 75 mg PO DAILY [facility] Last Admin: 09/10/18 08:46 Dose: 75 mg Cyclobenzaprine HCl (Flexeril) 5 mg PO TID [facility] Last Admin: 09/10/18 08:47 Dose: 5 mg Docusate Sodium (Colace) 100 mg PO BID [facility] Last Admin: 09/10/18 08:46 Dose: 100 mg Ergocalciferol (Drisdol 50,000 Intl Units Cap) 1 cap PO QWK [facility] Influenza Virus Vaccine (Fluzone Quad [id number]) 60 mcg IM .ONCE ONE Stop: 09/10/18 10:01 Insulin Detemir (Levemir) 30 units SC [facility] Last Admin: 09/09/18 22:22 Dose: 30 units Insulin Human Lispro (Humalog) 0 units SC [facility]; Protocol Last Admin: 09/10/18 07:38 Dose: Not Given Insulin Human Lispro (Humalog) 15 units SC AC [facility] Last Admin: 09/10/18 07:39 Dose: 15 unit Losartan Potassium (Cozaar) 50 mg PO DAILY [facility] Last Admin: 09/10/18 08:48 Dose: 50 mg Mirtazapine (Remeron) 15 mg PO DAILY [facility] Last Admin: 09/10/18 08:48 Dose: 15 mg Montelukast Sodium (Singulair) 10 mg PO DAILY [facility] Last Admin: 09/10/18 08:46 Dose: 10 mg Oxycodone/Acetaminophen (Percocet 5/325 Mg Tab) 1 tab PO Q6H PRN PRN Reason: Pain, moderate (4-7) Stop: 09/11/18 07:49 Last Admin: 09/10/18 09:00 Dose: 1 tab Oxycodone/Acetaminophen (Percocet 5/325 Mg Tab) 2 tab PO Q6 PRN PRN Reason: Pain, severe (8-10) Stop: 09/11/18 07:51 Last Admin: 09/09/18 22:25 Dose: 2 tab Pantoprazole Sodium (Protonix Ec Tab) 40 mg PO DAILY [facility] Last Admin: 09/10/18 08:47 Dose: 40 mg Pregabalin (Lyrica) 50 mg PO BID [facility] Last Admin: 09/10/18 08:50 Dose: 50 mg Ticagrelor (Brilinta) 90 mg PO BID [facility] Last Admin: 09/10/18 08:47 Dose: 90 mg Physical Exam - Constitutional Appears: Well, In Acute Distress - Head Exam Head Exam: ATRAUMATIC, NORMAL INSPECTION, NORMOCEPHALIC - Eye Exam Eye Exam: EOMI, Normal appearance, PERRL Pupil Exam: NORMAL ACCOMODATION, PERRL - ENT Exam ENT Exam: Mucous Membranes Moist, Normal Exam - Neck Exam Neck exam: Positive for: Normal Inspection - Respiratory Exam Respiratory Exam: Clear to Auscultation Bilateral, NORMAL BREATHING PATTERN - Cardiovascular Exam Cardiovascular Exam: REGULAR RHYTHM, +S1, +S2, Systolic Murmur - GI/Abdominal Exam GI & Abdominal Exam: Normal Bowel Sounds, Soft. absent: Tenderness - Extremities Exam Extremities exam: Positive for: normal inspection Additional comments: RLE absent pedal pulses - Back Exam Back exam: NORMAL INSPECTION - Neurological Exam Neurological exam: Alert, CN II-XII Intact, Normal Gait, Oriented x3, Reflexes Normal - Psychiatric Exam Psychiatric exam: Normal Affect, Normal Mood - Skin Skin Exam: Dry, Intact, Normal Color, Warm Results - Vital Signs Recent Vital Signs: Last Vital Signs Temp 98.2 F 09/10/18 04:00 Pulse 106 H 09/10/18 08:48 Resp 14 09/10/18 06:00 BP 137/64 09/10/18 08:48 Pulse Ox 100 09/10/18 06:00 - Labs Result Diagrams: 09/12/18 04:25 09/12/18 04:25 Labs: Laboratory Results - last 24 hr 09/09/18 09/09/18 09/09/18 09:06 10:55 15:20 WBC RBC Hgb Hct MCV MCH MCHC RDW Plt Count MPV Neut % (Auto) Lymph % (Auto) [place] % (Auto) Eos % (Auto) Baso % (Auto) Neut # (Auto) Lymph # (Auto) [place] # (Auto) Eos # (Auto) Baso # (Auto) APTT 42.2 H 50.2 H Sodium Potassium Chloride Carbon Dioxide Anion Gap BUN Creatinine Est GFR ( Amer) Est GFR (Non-Af Amer) POC Glucose (mg/dL) 246 H Random Glucose Calcium Total Bilirubin AST ALT Alkaline Phosphatase Total Protein Albumin Globulin Albumin/Globulin Ratio 09/09/18 09/09/18 09/09/18 16:11 22:00 22:18 WBC RBC Hgb Hct MCV MCH MCHC RDW Plt Count MPV Neut % (Auto) Lymph % (Auto) [place] % (Auto) Eos % (Auto) Baso % (Auto) Neut # (Auto) Lymph # (Auto) [place] # (Auto) Eos # (Auto) Baso # (Auto) APTT 49.8 H Sodium Potassium Chloride Carbon Dioxide Anion Gap BUN Creatinine Est GFR ( Amer) Est GFR (Non-Af Amer) POC Glucose (mg/dL) 85 221 H Random Glucose Calcium Total Bilirubin AST ALT Alkaline Phosphatase Total Protein Albumin Globulin Albumin/Globulin Ratio 09/10/18 09/10/18 09/10/18 04:40 04:40 04:40 WBC 7.8 RBC 3.37 L Hgb 9.6 L Hct 29.8 L MCV 88.4 MCH 28.5 MCHC 32.3 L RDW 14.2 Plt Count 339 MPV 8.4 Neut % (Auto) 51.4 Lymph % (Auto) 32.6 [place] % (Auto) 10.6 H Eos % (Auto) 4.9 H Baso % (Auto) 0.5 Neut # (Auto) 4.0 Lymph # (Auto) 2.5 [place] # (Auto) 0.8 Eos # (Auto) 0.4 Baso # (Auto) 0.0 APTT 47.1 H Sodium 140 Potassium 4.7 Chloride 107 Carbon Dioxide 23 Anion Gap 15 BUN 17 Creatinine 1.1 Est GFR ( Amer) 58 Est GFR (Non-Af Amer) 48 POC Glucose (mg/dL) Random Glucose 139 H Calcium 9.3 Total Bilirubin 0.2 AST 34 ALT 29 Alkaline Phosphatase 106 Total Protein 7.7 Albumin 3.9 Globulin 3.9 Albumin/Globulin Ratio 1.0 09/10/18 05:34 WBC RBC Hgb Hct MCV MCH MCHC RDW Plt Count MPV Neut % (Auto) Lymph % (Auto) [place] % (Auto) Eos % (Auto) Baso % (Auto) Neut # (Auto) Lymph # (Auto) [place] # (Auto) Eos # (Auto) Baso # (Auto) APTT Sodium Potassium Chloride Carbon Dioxide Anion Gap BUN Creatinine Est GFR ( Amer) Est GFR (Non-Af Amer) POC Glucose (mg/dL) 125 H Random Glucose Calcium Total Bilirubin AST ALT Alkaline Phosphatase Total Protein Albumin Globulin Albumin/Globulin Ratio Assessment & Plan (1) Arterial occlusion, lower extremity Assessment and Plan: IV heparin dapt plan for peripheral angiogram in am npo p mn Status: Acute Priority: High (2) Right leg pain Status: Acute Priority: High (3) Moderate COPD (chronic obstructive pulmonary disease) Status: Acute Priority: Medium (4) PVD (peripheral vascular disease) Status: Acute Priority: High (5) DMII (diabetes mellitus, type 2) Status: Chronic Priority: High (6) HTN (hypertension) Assessment and Plan: cont losartan, norvasc Status: Chronic Priority: Medium
[2018-09-10] MEDS ORDERED: Influenza Vaccine 60 MCG/0.5 ML SYR (3 yr & up) IM ONE (10:00)
[2018-09-10] MEDS ORDERED: Oxycodone/Acetaminophen 5/325 mg Tab PO ONE (10:32)
[2018-09-10] MEDS ORDERED: Oxycodone/Acetaminophen 5/325 mg Tab PO PRN (14:17)
--- NOTE | 2018-09-10 16:37 | CP.PCM.PN ---
Subjective - Date & Time of Evaluation Date of Evaluation: 09/10/18 Time of Evaluation: 11:00 - Subjective Subjective: F/U Arterial occlusion RLE Pt c/o of pain in RLE. Objective - Vital Signs/Intake and Output Vital Signs (last 24 hours): Temp Pulse Resp BP Pulse Ox 97.9 F 87 14 131/58 L 96 09/10/18 12:00 09/10/18 12:00 09/10/18 12:00 09/10/18 12:00 09/10/18 12:00 Intake and Output: 09/10/18 09/10/18 06:59 18:59 Intake Total 240 23 Output Total 400 Balance 240 -377 - Medications Medications: Current Medications Amlodipine Besylate (Norvasc) 10 mg PO DAILY [facility] Last Admin: 09/10/18 08:47 Dose: 10 mg Atorvastatin Calcium (Lipitor) 40 mg PO DAILY [facility] Last Admin: 09/10/18 08:46 Dose: 40 mg Clopidogrel Bisulfate (Plavix) 75 mg PO DAILY [facility] Last Admin: 09/10/18 08:46 Dose: 75 mg Cyclobenzaprine HCl (Flexeril) 5 mg PO TID [facility] Last Admin: 09/10/18 16:23 Dose: 5 mg Docusate Sodium (Colace) 100 mg PO BID [facility] Last Admin: 09/10/18 16:22 Dose: 100 mg Ergocalciferol (Drisdol 50,000 Intl Units Cap) 1 cap PO QWK [facility] Insulin Detemir (Levemir) 30 units SC HS [facility] Last Admin: 09/09/18 22:22 Dose: 30 units Insulin Human Lispro (Humalog) 0 units SC ACHS [facility]; Protocol Last Admin: 09/10/18 16:18 Dose: Not Given Insulin Human Lispro (Humalog) 15 units SC AC [facility] Last Admin: 09/10/18 16:18 Dose: Not Given Losartan Potassium (Cozaar) 50 mg PO DAILY [facility] Last Admin: 09/10/18 08:48 Dose: 50 mg Mirtazapine (Remeron) 15 mg PO DAILY [facility] Last Admin: 09/10/18 08:48 Dose: 15 mg Montelukast Sodium (Singulair) 10 mg PO DAILY [facility] Last Admin: 09/10/18 08:46 Dose: 10 mg Oxycodone/Acetaminophen (Percocet 5/325 Mg Tab) 2 tab PO Q4 PRN PRN Reason: Pain, severe (8-10) Stop: 09/13/18 14:08 Last Admin: 09/10/18 14:55 Dose: 2 tab Oxycodone/Acetaminophen (Percocet 5/325 Mg Tab) 1 tab PO Q4 PRN PRN Reason: Pain, moderate (4-7) Stop: 09/13/18 14:18 Pantoprazole Sodium (Protonix Ec Tab) 40 mg PO DAILY [facility] Last Admin: 09/10/18 08:47 Dose: 40 mg Pregabalin (Lyrica) 50 mg PO BID [facility] Last Admin: 09/10/18 16:24 Dose: 50 mg Ticagrelor (Brilinta) 90 mg PO BID [facility] Last Admin: 09/10/18 16:23 Dose: 90 mg - Labs Labs: 09/10/18 04:40 09/10/18 04:40 PT 11.6 Seconds (9.8-13.1) 09/07/18 21:20 INR 1.0 09/07/18 21:20 APTT 66.1 Seconds (25.6-37.1) H 09/10/18 11:00 - Constitutional Appears: No Acute Distress - Head Exam Head Exam: NORMAL INSPECTION - Eye Exam Eye Exam: PERRL - ENT Exam ENT Exam: Normal Exam - Neck Exam Neck Exam: Normal Inspection - Respiratory Exam Respiratory Exam: NORMAL BREATHING PATTERN - Cardiovascular Exam Cardiovascular Exam: REGULAR RHYTHM - GI/Abdominal Exam GI & Abdominal Exam: Soft, Normal Bowel Sounds - Extremities Exam Extremities Exam: Tenderness (RLE, warm, pedal pulse decreased, decreased sensation R-L feet.) - Back Exam Back Exam: NORMAL INSPECTION - Neurological Exam Neurological Exam: Alert, Oriented x3 Additional comments: No focal motor deficit. decreased sensation R-L feet, unsteady gait - Psychiatric Exam Psychiatric exam: Anxious, Depressed - Skin Skin Exam: Warm Assessment and Plan (1) Right leg pain Status: Acute (2) Arterial occlusion, lower extremity Status: Acute (3) DMII (diabetes mellitus, type 2) Status: Chronic (4) HTN (hypertension) Status: Chronic (5) History of atherectomy Status: Chronic (6) S/P angioplasty Status: Chronic (7) COPD (chronic obstructive pulmonary disease) Status: Chronic (8) PVD (peripheral vascular disease) Status: Chronic (9) Osteoarthritis Status: Chronic (10) Depression Status: Chronic (11) Anxiety Status: Chronic (12) Hyperglycemia due to type 2 diabetes mellitus Status: Acute (13) Diabetic neuropathy Status: Acute - Assessment and Plan (Free Text) Plan: Continue Morphine and rest of Tx. f/u with Dr Zavala for peripheral angio procedure. Critical care time: 34 min.
[2018-09-10] MEDS: Heparin 25,000units in D5W 25,000 UNITS/250 ML BAG IV SCH (22:26)
[2018-09-10] MEDS: Insulin Detemir 100 Units/ml Inj SC SCH (22:29)
[2018-09-11] MEDS: Insulin Lispro (humaLOG) 100 Units/ml Inj SC SCH ×7 (07:24→22:35)
[2018-09-11] MEDS: Pantoprazole 40 mg EC Tab PO SCH (09:45)
[2018-09-11] MEDS: Heparin 25,000units in D5W 25,000 UNITS/250 ML BAG IV SCH (18:53)
[2018-09-11] MEDS: Insulin Detemir 100 Units/ml Inj SC SCH (22:37)
[2018-09-11] MEDS: Oxycodone/Acetaminophen 5/325 mg Tab PO PRN (22:46)
[2018-09-12 06:23] LABS: MEAN CORPUSCULAR HGB CONC 33.3 g/dL (33.0-37.0); RBC 3.09 Mil/uL (3.80-5.20); RED CELL DISTRIBUTION WIDTH 14.3 % (11.5-14.5); WHITE BLOOD COUNT 8.9 K/uL (4.8-10.8)
[2018-09-12] MEDS: Oxycodone/Acetaminophen 5/325 mg Tab PO PRN ×3 (06:42→21:19)
[2018-09-12 06:43] LABS: CALCIUM 9.6 mg/dL (8.4-10.2)
[2018-09-12] MEDS: Insulin Lispro (humaLOG) 100 Units/ml Inj SC SCH ×8 (06:45→21:22)
[2018-09-12] MEDS: Pantoprazole 40 mg EC Tab PO SCH (09:36)
--- NOTE | 2018-09-12 14:15 | CP.PCM.PN ---
Subjective - Date & Time of Evaluation Date of Evaluation: 09/12/18 Time of Evaluation: 13:10 - Subjective Subjective: F/u S/P Atherectomy. Pt awake, pain in RLE. Objective - Vital Signs/Intake and Output Vital Signs (last 24 hours): Temp Pulse Resp BP Pulse Ox 98.5 F 76 18 126/68 98 09/12/18 11:52 09/12/18 11:52 09/12/18 11:52 09/12/18 11:52 09/12/18 11:52 - Medications Medications: Current Medications Amlodipine Besylate (Norvasc) 10 mg PO DAILY [facility] Last Admin: 09/12/18 09:33 Dose: 10 mg Atorvastatin Calcium (Lipitor) 40 mg PO DAILY [facility] Last Admin: 09/12/18 09:35 Dose: 40 mg Clopidogrel Bisulfate (Plavix) 75 mg PO DAILY [facility] Last Admin: 09/12/18 09:33 Dose: 75 mg Cyclobenzaprine HCl (Flexeril) 5 mg PO TID [facility] Last Admin: 09/12/18 09:33 Dose: 5 mg Docusate Sodium (Colace) 100 mg PO BID [facility] Last Admin: 09/12/18 09:35 Dose: 100 mg Ergocalciferol (Drisdol 50,000 Intl Units Cap) 1 cap PO QWK [facility] Insulin Detemir (Levemir) 30 units SC HS [facility] Last Admin: 09/11/18 22:37 Dose: 30 units Insulin Human Lispro (Humalog) 0 units SC ACHS [facility]; Protocol Last Admin: 09/12/18 12:43 Dose: 1 u Insulin Human Lispro (Humalog) 15 units SC AC [facility] Last Admin: 09/12/18 12:43 Dose: 15 unit Losartan Potassium (Cozaar) 50 mg PO DAILY [facility] Last Admin: 09/12/18 09:34 Dose: 50 mg Mirtazapine (Remeron) 15 mg PO DAILY [facility] Last Admin: 09/12/18 09:35 Dose: 15 mg Montelukast Sodium (Singulair) 10 mg PO DAILY [facility] Last Admin: 09/12/18 09:36 Dose: 10 mg Oxycodone/Acetaminophen (Percocet 5/325 Mg Tab) 2 tab PO Q4 PRN PRN Reason: Pain, severe (8-10) Stop: 09/13/18 14:08 Last Admin: 09/12/18 06:42 Dose: 2 tab Oxycodone/Acetaminophen (Percocet 5/325 Mg Tab) 1 tab PO Q4 PRN PRN Reason: Pain, moderate (4-7) Stop: 09/13/18 14:18 Pantoprazole Sodium (Protonix Ec Tab) 40 mg PO DAILY [facility] Last Admin: 09/12/18 09:36 Dose: 40 mg Pregabalin (Lyrica) 50 mg PO BID [facility] Last Admin: 09/12/18 09:41 Dose: 50 mg Ticagrelor (Brilinta) 90 mg PO BID [facility] Last Admin: 09/12/18 09:33 Dose: 90 mg - Labs Labs: 09/12/18 04:25 09/12/18 04:25 PT 11.6 Seconds (9.8-13.1) 09/07/18 21:20 INR 1.0 09/07/18 21:20 APTT 33.1 Seconds (25.6-37.1) 09/12/18 04:25 - Constitutional Appears: No Acute Distress - Head Exam Head Exam: NORMAL INSPECTION - Eye Exam Eye Exam: PERRL - ENT Exam ENT Exam: Normal Exam - Neck Exam Neck Exam: Normal Inspection - Respiratory Exam Respiratory Exam: NORMAL BREATHING PATTERN - Cardiovascular Exam Cardiovascular Exam: REGULAR RHYTHM - GI/Abdominal Exam GI & Abdominal Exam: Soft, Normal Bowel Sounds - Extremities Exam Extremities Exam: Full ROM, Tenderness (L groin dressing) - Back Exam Back Exam: NORMAL INSPECTION - Neurological Exam Neurological Exam: Alert, Oriented x3 Additional comments: No focal motor deficit, decreased sensation L/E, feet. - Psychiatric Exam Psychiatric exam: Anxious - Skin Skin Exam: Warm Assessment and Plan (1) Right leg pain Status: Acute (2) Arterial occlusion, lower extremity Status: Acute (3) DMII (diabetes mellitus, type 2) Status: Chronic (4) HTN (hypertension) Status: Chronic (5) History of atherectomy Status: Chronic (6) S/P angioplasty Status: Chronic (7) COPD (chronic obstructive pulmonary disease) Status: Chronic (8) PVD (peripheral vascular disease) Status: Chronic (9) Osteoarthritis Status: Chronic (10) Depression Status: Chronic (11) Anxiety Status: Chronic (12) Hyperglycemia due to type 2 diabetes mellitus Status: Acute (13) Diabetic neuropathy Status: Acute - Assessment and Plan (Free Text) Plan: Continue brillinta, Plavix, Flexeril, Humalog and rest of Tx.
--- NOTE | 2018-09-12 15:16 | CP.PCM.PN ---
Subjective - Date & Time of Evaluation Date of Evaluation: 09/12/18 Time of Evaluation: 15:15 - Subjective Subjective: RLE discomfort improving Objective - Vital Signs/Intake and Output Vital Signs (last 24 hours): Temp Pulse Resp BP Pulse Ox 98.5 F 76 18 126/68 98 09/12/18 11:52 09/12/18 11:52 09/12/18 11:52 09/12/18 11:52 09/12/18 11:52 - Medications Medications: Current Medications Amlodipine Besylate (Norvasc) 10 mg PO DAILY [facility] Last Admin: 09/12/18 09:33 Dose: 10 mg Atorvastatin Calcium (Lipitor) 40 mg PO DAILY [facility] Last Admin: 09/12/18 09:35 Dose: 40 mg Clopidogrel Bisulfate (Plavix) 75 mg PO DAILY [facility] Last Admin: 09/12/18 09:33 Dose: 75 mg Cyclobenzaprine HCl (Flexeril) 5 mg PO TID [facility] Last Admin: 09/12/18 13:30 Dose: Not Given Docusate Sodium (Colace) 100 mg PO BID [facility] Last Admin: 09/12/18 09:35 Dose: 100 mg Ergocalciferol (Drisdol 50,000 Intl Units Cap) 1 cap PO QWK [facility] Insulin Detemir (Levemir) 30 units SC HS [facility] Last Admin: 09/11/18 22:37 Dose: 30 units Insulin Human Lispro (Humalog) 0 units SC ACHS [facility]; Protocol Last Admin: 09/12/18 12:43 Dose: 1 u Insulin Human Lispro (Humalog) 15 units SC AC [facility] Last Admin: 09/12/18 12:43 Dose: 15 unit Losartan Potassium (Cozaar) 50 mg PO DAILY [facility] Last Admin: 09/12/18 09:34 Dose: 50 mg Mirtazapine (Remeron) 15 mg PO DAILY [facility] Last Admin: 09/12/18 09:35 Dose: 15 mg Montelukast Sodium (Singulair) 10 mg PO DAILY [facility] Last Admin: 09/12/18 09:36 Dose: 10 mg Oxycodone/Acetaminophen (Percocet 5/325 Mg Tab) 2 tab PO Q4 PRN PRN Reason: Pain, severe (8-10) Stop: 09/13/18 14:08 Last Admin: 09/12/18 14:46 Dose: 2 tab Oxycodone/Acetaminophen (Percocet 5/325 Mg Tab) 1 tab PO Q4 PRN PRN Reason: Pain, moderate (4-7) Stop: 09/13/18 14:18 Pantoprazole Sodium (Protonix Ec Tab) 40 mg PO DAILY [facility] Last Admin: 09/12/18 09:36 Dose: 40 mg Pregabalin (Lyrica) 50 mg PO BID [facility] Last Admin: 09/12/18 09:41 Dose: 50 mg Ticagrelor (Brilinta) 90 mg PO BID [facility] Last Admin: 09/12/18 09:33 Dose: 90 mg - Labs Labs: 09/12/18 04:25 09/12/18 04:25 PT 11.6 Seconds (9.8-13.1) 09/07/18 21:20 INR 1.0 09/07/18 21:20 APTT 33.1 Seconds (25.6-37.1) 09/12/18 04:25 - Constitutional Appears: Well - Head Exam Head Exam: ATRAUMATIC, NORMAL INSPECTION, NORMOCEPHALIC - Eye Exam Eye Exam: EOMI, Normal appearance, PERRL Pupil Exam: NORMAL ACCOMODATION, PERRL - ENT Exam ENT Exam: Mucous Membranes Moist, Normal Exam - Neck Exam Neck Exam: Full ROM, Normal Inspection. absent: Lymphadenopathy - Respiratory Exam Respiratory Exam: Clear to Ausculation Bilateral, NORMAL BREATHING PATTERN - Cardiovascular Exam Cardiovascular Exam: REGULAR RHYTHM, +S1, +S2. absent: Murmur - GI/Abdominal Exam GI & Abdominal Exam: Soft, Normal Bowel Sounds. absent: Tenderness - Extremities Exam Extremities Exam: Full ROM, Normal Capillary Refill, Normal Inspection. 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
[2018-09-12] MEDS: Insulin Detemir 100 Units/ml Inj SC SCH (21:22)
[2018-09-13] MEDS: Oxycodone/Acetaminophen 5/325 mg Tab PO PRN ×2 (05:19→13:55)
[2018-09-13] MEDS: Insulin Lispro (humaLOG) 100 Units/ml Inj SC SCH ×7 (06:30→23:18)
[2018-09-13] MEDS: Pantoprazole 40 mg EC Tab PO SCH (09:03)
--- NOTE | 2018-09-13 16:49 | CP.PCM.PN ---
Subjective - Date & Time of Evaluation Date of Evaluation: 09/13/18 Time of Evaluation: 13:10 - Subjective Subjective: S/P R Atherectomy Pt c/o of pain in the RLE. Objective - Vital Signs/Intake and Output Vital Signs (last 24 hours): Temp Pulse Resp BP Pulse Ox 99.1 F 97 H 18 119/64 96 09/13/18 15:50 09/13/18 15:50 09/13/18 15:50 09/13/18 15:50 09/13/18 15:50 - Medications Medications: Current Medications Amlodipine Besylate (Norvasc) 10 mg PO DAILY [facility] Last Admin: 09/13/18 14:00 Dose: 10 mg Atorvastatin Calcium (Lipitor) 40 mg PO DAILY [facility] Last Admin: 09/13/18 09:03 Dose: 40 mg Clopidogrel Bisulfate (Plavix) 75 mg PO DAILY [facility] Last Admin: 09/13/18 09:03 Dose: 75 mg Cyclobenzaprine HCl (Flexeril) 5 mg PO TID [facility] Last Admin: 09/13/18 14:00 Dose: 5 mg Docusate Sodium (Colace) 100 mg PO BID [facility] Last Admin: 09/13/18 08:59 Dose: 100 mg Ergocalciferol (Drisdol 50,000 Intl Units Cap) 1 cap PO QWK [facility] Insulin Detemir (Levemir) 30 units SC HS [facility] Last Admin: 09/12/18 21:22 Dose: 30 units Insulin Human Lispro (Humalog) 0 units SC ACHS [facility]; Protocol Last Admin: 09/13/18 13:20 Dose: 2 u Insulin Human Lispro (Humalog) 15 units SC AC [facility] Last Admin: 09/13/18 13:20 Dose: 15 unit Losartan Potassium (Cozaar) 50 mg PO DAILY [facility] Last Admin: 09/13/18 09:00 Dose: 50 mg Mirtazapine (Remeron) 15 mg PO DAILY [facility] Last Admin: 09/13/18 09:05 Dose: 15 mg Montelukast Sodium (Singulair) 10 mg PO DAILY [facility] Last Admin: 09/13/18 09:04 Dose: 10 mg Pantoprazole Sodium (Protonix Ec Tab) 40 mg PO DAILY [facility] Last Admin: 09/13/18 09:03 Dose: 40 mg Pregabalin (Lyrica) 50 mg PO BID [facility] Last Admin: 09/13/18 09:07 Dose: 50 mg Ticagrelor (Brilinta) 90 mg PO BID [facility] Last Admin: 09/13/18 08:59 Dose: 90 mg - Labs Labs: 09/12/18 04:25 09/12/18 04:25 PT 11.6 Seconds (9.8-13.1) 09/07/18 21:20 INR 1.0 09/07/18 21:20 APTT 33.1 Seconds (25.6-37.1) 09/12/18 04:25 - Constitutional Appears: No Acute Distress - Head Exam Head Exam: NORMAL INSPECTION - Eye Exam Eye Exam: PERRL - ENT Exam ENT Exam: Normal Exam - Neck Exam Neck Exam: Normal Inspection - Respiratory Exam Respiratory Exam: NORMAL BREATHING PATTERN - Cardiovascular Exam Cardiovascular Exam: REGULAR RHYTHM - GI/Abdominal Exam GI & Abdominal Exam: Soft, Normal Bowel Sounds - Extremities Exam Extremities Exam: Full ROM Additional comments: L groin dressing - Back Exam Back Exam: NORMAL INSPECTION - Neurological Exam Neurological Exam: Alert, Awake, Oriented x3 Additional comments: No focal motor deficit, decreased sensation/E, feet. - Psychiatric Exam Psychiatric exam: Anxious - Skin Skin Exam: Warm Assessment and Plan (1) Right leg pain Status: Acute (2) Arterial occlusion, lower extremity Status: Acute (3) DMII (diabetes mellitus, type 2) Status: Chronic (4) HTN (hypertension) Status: Chronic (5) History of atherectomy Status: Chronic (6) S/P angioplasty Status: Chronic (7) COPD (chronic obstructive pulmonary disease) Status: Chronic (8) PVD (peripheral vascular disease) Status: Chronic (9) Osteoarthritis Status: Chronic (10) Depression Status: Chronic (11) Anxiety Status: Chronic (12) Hyperglycemia due to type 2 diabetes mellitus Status: Acute (13) Diabetic neuropathy Status: Acute - Assessment and Plan (Free Text) Plan: Continue Brillinta, Plavix and rest of tx, PT eval.
[2018-09-13] MEDS: Insulin Detemir 100 Units/ml Inj SC SCH (23:14)
--- NOTE | 2018-09-14 07:23 | CP.PCM.PN ---
Subjective - Date & Time of Evaluation Date of Evaluation: 09/13/18 Time of Evaluation: 13:00 - Subjective Subjective: c/o severe pain in RLE foot warm post reperfusion ? reperfusion injury Objective - Vital Signs/Intake and Output Vital Signs (last 24 hours): Temp Pulse Resp BP Pulse Ox 98.4 F 91 H 18 134/72 100 09/14/18 05:00 09/14/18 05:00 09/14/18 05:00 09/14/18 05:00 09/14/18 05:00 - Medications Medications: Current Medications Amlodipine Besylate (Norvasc) 10 mg PO DAILY [facility] Last Admin: 09/13/18 14:00 Dose: 10 mg Atorvastatin Calcium (Lipitor) 40 mg PO DAILY [facility] Last Admin: 09/13/18 09:03 Dose: 40 mg Clopidogrel Bisulfate (Plavix) 75 mg PO DAILY [facility] Last Admin: 09/13/18 09:03 Dose: 75 mg Cyclobenzaprine HCl (Flexeril) 5 mg PO TID [facility] Last Admin: 09/13/18 17:19 Dose: 5 mg Docusate Sodium (Colace) 100 mg PO BID [facility] Last Admin: 09/13/18 17:19 Dose: 100 mg Ergocalciferol (Drisdol 50,000 Intl Units Cap) 1 cap PO QWK [facility] Insulin Detemir (Levemir) 30 units SC HS [facility] Last Admin: 09/13/18 23:14 Dose: 30 units Insulin Human Lispro (Humalog) 0 units SC ACHS [facility]; Protocol Last Admin: 09/13/18 23:18 Dose: Not Given Insulin Human Lispro (Humalog) 15 units SC AC [facility] Last Admin: 09/13/18 17:20 Dose: 15 unit Losartan Potassium (Cozaar) 50 mg PO DAILY [facility] Last Admin: 09/13/18 09:00 Dose: 50 mg Mirtazapine (Remeron) 15 mg PO DAILY [facility] Last Admin: 09/13/18 09:05 Dose: 15 mg Montelukast Sodium (Singulair) 10 mg PO DAILY [facility] Last Admin: 09/13/18 09:04 Dose: 10 mg Pantoprazole Sodium (Protonix Ec Tab) 40 mg PO DAILY [facility] Last Admin: 09/13/18 09:03 Dose: 40 mg Pregabalin (Lyrica) 50 mg PO BID [facility] Last Admin: 09/13/18 17:26 Dose: 50 mg Ticagrelor (Brilinta) 90 mg PO BID [facility] Last Admin: 09/13/18 17:19 Dose: 90 mg - Labs Labs: 09/12/18 04:25 09/12/18 04:25 PT 11.6 Seconds (9.8-13.1) 09/07/18 21:20 INR 1.0 09/07/18 21:20 APTT 33.1 Seconds (25.6-37.1) 09/12/18 04:25 - Constitutional Appears: Well - Head Exam Head Exam: ATRAUMATIC, NORMAL INSPECTION, NORMOCEPHALIC - Eye Exam Eye Exam: EOMI, Normal appearance, PERRL Pupil Exam: NORMAL ACCOMODATION, PERRL - ENT Exam ENT Exam: Mucous Membranes Moist, Normal Exam - Neck Exam Neck Exam: Full ROM, Normal Inspection. absent: Lymphadenopathy - Respiratory Exam Respiratory Exam: Clear to Ausculation Bilateral, NORMAL BREATHING PATTERN - Cardiovascular Exam Cardiovascular Exam: REGULAR RHYTHM, +S1, +S2. absent: Murmur - GI/Abdominal Exam GI & Abdominal Exam: Soft, Normal Bowel Sounds. absent: Tenderness - Extremities Exam Extremities Exam: Full ROM, Normal Capillary Refill, Normal Inspection. absent: Joint Swelling, Pedal Edema - Back Exam Back Exam: NORMAL INSPECTION - Neurological Exam Neurological Exam: Alert, Awake, CN II-XII Intact, Normal Gait, Oriented x3 - Psychiatric Exam Psychiatric exam: Normal Affect, Normal Mood - Skin Skin Exam: Dry, Intact, Normal Color, Warm Assessment and Plan (1) Arterial occlusion, lower extremity Assessment & Plan: s/p atherectomy and POBA with DCB of R [employer] reperfusion pain dapt statins bb arb Status: Acute (2) Right leg pain Status: Acute (3) Moderate COPD (chronic obstructive pulmonary disease) Status: Acute (4) PVD (peripheral vascular disease) Status: Acute (5) DMII (diabetes mellitus, type 2) Status: Chronic (6) HTN (hypertension) Status: Chronic
[2018-09-14 08:39] VITALS: RESP 20; O2SAT 98
[2018-09-14] MEDS: Insulin Lispro (humaLOG) 100 Units/ml Inj SC SCH ×4 (08:53→11:49)
[2018-09-14] MEDS: Pantoprazole 40 mg EC Tab PO SCH (08:56)
--- NOTE | 2018-09-14 12:20 | CP.PCM.CON ---
History of Present Illness - History of Present Illness History of Present Illness: 78 yo woman w/ right distal leg pain, likely ischemic pain, is referred for pain management. The Percocet order was dropped and Lyrica/Flexeril aren't enough in treating patient's pain. Patient is on AC and s/p revasc procedure earlier this year. Patient is opioid naive and had responded to Percocet before. She denies side effects from Lyrica and Flexeril. She's not a candidate for sympathetic block due to her being on AC. Past Patient History - Infectious Disease Hx of Infectious Diseases: None - Tetanus Immunizations Tetanus Immunization: Unknown - Past Medical History & Family History Past Medical History?: Yes - Past Social History Smoking Status: Former Smoker Chewing Tobacco Use: No Cigar Use: No Alcohol: None Drugs: Denies, Inhalants Home Situation {Lives}: With Family - CARDIAC Hx Cardiac Disorders: Yes Hx Hypercholesterolemia: Yes Hx Hypertension: Yes - PULMONARY Hx Respiratory Disorders: Yes Hx Asthma: Yes Hx Chronic Obstructive Pulmonary Disease (COPD): Yes Hx Pneumonia: Yes - NEUROLOGICAL Hx Neurological Disorder: Yes Other/Comment: DM Neuropathy - HEENT Hx HEENT Problems: Yes (Allergic Rhinitis.) - RENAL Hx Chronic Kidney Disease: No - ENDOCRINE/METABOLIC Hx Endocrine Disorders: Yes Hx Diabetes Mellitus Type 2: Yes Hx Hypothyroidism: No - HEMATOLOGICAL/ONCOLOGICAL Hx Blood Disorders: Yes Hx Anemia: Yes - INTEGUMENTARY Hx Dermatological Problems: No - MUSCULOSKELETAL/RHEUMATOLOGICAL Hx Musculoskeletal Disorders: Yes Hx Arthritis: Yes Hx Osteoporosis: Yes - GASTROINTESTINAL Hx Gastrointestinal Disorders: No - GENITOURINARY/GYNECOLOGICAL Hx Genitourinary Disorders: No - PSYCHIATRIC Hx Psychophysiologic Disorder: Yes Hx Anxiety: Yes Hx Depression: Yes - SURGICAL HISTORY Hx Surgeries: Yes Hx Angiogram: Yes (Angiogram lower extremities Dr Rodriges) Hx Orthopedic Surgery: Yes (left arm surgery) Other/Comment: R Femoral atherectomy and angioplasty Dr Zavala - ANESTHESIA Hx Anesthesia: Yes Hx Anesthesia Reactions: No Hx Malignant Hyperthermia: No Meds Allergies/Adverse Reactions: Allergies Allergy/AdvReac Type Severity Reaction Status Date / Time aspirin AdvReac RASH Verified 09/07/18 20:07 - Medications Medications: Current Medications Amlodipine Besylate (Norvasc) 10 mg PO DAILY [facility] Last Admin: 09/14/18 08:55 Dose: 10 mg Atorvastatin Calcium (Lipitor) 40 mg PO DAILY [facility] Last Admin: 09/14/18 08:55 Dose: 40 mg Clopidogrel Bisulfate (Plavix) 75 mg PO DAILY [facility] Last Admin: 09/14/18 08:55 Dose: 75 mg Cyclobenzaprine HCl (Flexeril) 5 mg PO TID [facility] Last Admin: 09/14/18 08:52 Dose: 5 mg Docusate Sodium (Colace) 100 mg PO BID [facility] Last Admin: 09/14/18 08:51 Dose: 100 mg Ergocalciferol (Drisdol 50,000 Intl Units Cap) 1 cap PO QWK [facility] Insulin Detemir (Levemir) 30 units SC HS [facility] Last Admin: 09/13/18 23:14 Dose: 30 units Insulin Human Lispro (Humalog) 0 units SC ACHS [facility]; Protocol Last Admin: 09/14/18 11:48 Dose: Not Given Insulin Human Lispro (Humalog) 15 units SC AC [facility] Last Admin: 09/14/18 11:49 Dose: 15 units Losartan Potassium (Cozaar) 50 mg PO DAILY [facility] Last Admin: 09/14/18 08:52 Dose: 50 mg Mirtazapine (Remeron) 15 mg PO DAILY [facility] Last Admin: 09/14/18 08:56 Dose: 15 mg Montelukast Sodium (Singulair) 10 mg PO DAILY [facility] Last Admin: 09/14/18 08:56 Dose: 10 mg Pantoprazole Sodium (Protonix Ec Tab) 40 mg PO DAILY [facility] Last Admin: 09/14/18 08:56 Dose: 40 mg Pregabalin (Lyrica) 50 mg PO BID [facility] Last Admin: 09/14/18 08:59 Dose: 50 mg Ticagrelor (Brilinta) 90 mg PO BID [facility] Last Admin: 09/14/18 08:51 Dose: 90 mg Physical Exam - Extremities Exam Extremities exam: Positive for: calf tenderness, tenderness Results - Vital Signs Recent Vital Signs: Last Vital Signs Temp 98.6 F 09/14/18 08:39 Pulse 101 H 09/14/18 08:55 Resp 20 09/14/18 08:39 BP 118/51 L 09/14/18 08:55 Pulse Ox 98 09/14/18 08:39 - Labs Result Diagrams: 09/12/18 04:25 09/12/18 04:25 Labs: Laboratory Results - last 24 hr 09/13/18 09/13/18 09/14/18 16:08 21:29 05:22 POC Glucose (mg/dL) 213 H 115 H 237 H 09/14/18 11:29 POC Glucose (mg/dL) 120 H Assessment & Plan (1) Chronic foot pain Assessment and Plan: 78 yo woman w/ ischemic right leg pain. - restart Percocet - increase Lyrica to 50mg q8h - can add IV Morphine if Percocet alone is insufficient Status: Acute
[2018-09-14] MEDS ORDERED: Oxycodone/Acetaminophen 5/325 mg Tab PO PRN (12:22)
[2018-09-14 12:25] VITALS: BP 149/69; PULSE 115; TEMP 98.5
--- NOTE | 2018-09-14 14:35 | CP.PCM.PN ---
Objective - Vital Signs/Intake and Output Vital Signs (last 24 hours): Temp Pulse Resp BP Pulse Ox 98.5 F 115 H 20 149/69 98 09/14/18 12:25 09/14/18 12:25 09/14/18 12:25 09/14/18 12:25 09/14/18 12:25 - Medications Medications: Current Medications Amlodipine Besylate (Norvasc) 10 mg PO DAILY [facility] Last Admin: 09/14/18 08:55 Dose: 10 mg Atorvastatin Calcium (Lipitor) 40 mg PO DAILY [facility] Last Admin: 09/14/18 08:55 Dose: 40 mg Clopidogrel Bisulfate (Plavix) 75 mg PO DAILY [facility] Last Admin: 09/14/18 08:55 Dose: 75 mg Cyclobenzaprine HCl (Flexeril) 5 mg PO TID [facility] Last Admin: 09/14/18 08:52 Dose: 5 mg Docusate Sodium (Colace) 100 mg PO BID [facility] Last Admin: 09/14/18 08:51 Dose: 100 mg Ergocalciferol (Drisdol 50,000 Intl Units Cap) 1 cap PO QWK [facility] Insulin Detemir (Levemir) 30 units SC HS [facility] Last Admin: 09/13/18 23:14 Dose: 30 units Insulin Human Lispro (Humalog) 0 units SC [facility]; Protocol Last Admin: 09/14/18 11:48 Dose: Not Given Insulin Human Lispro (Humalog) 15 units SC AC [facility] Last Admin: 09/14/18 11:49 Dose: 15 units Losartan Potassium (Cozaar) 50 mg PO DAILY [facility] Last Admin: 09/14/18 08:52 Dose: 50 mg Mirtazapine (Remeron) 15 mg PO DAILY [facility] Last Admin: 09/14/18 08:56 Dose: 15 mg Montelukast Sodium (Singulair) 10 mg PO DAILY [facility] Last Admin: 09/14/18 08:56 Dose: 10 mg Oxycodone/Acetaminophen (Percocet 5/325 Mg Tab) 1 tab PO Q4 PRN PRN Reason: Pain, severe (8-10) Stop: 09/17/18 12:23 Last Admin: 09/14/18 12:38 Dose: 1 tab Pantoprazole Sodium (Protonix Ec Tab) 40 mg PO DAILY [facility] Last Admin: 09/14/18 08:56 Dose: 40 mg Pregabalin (Lyrica) 50 mg PO TID [facility] Last Admin: 09/14/18 12:38 Dose: 50 mg Ticagrelor (Brilinta) 90 mg PO BID [facility] Last Admin: 09/14/18 08:51 Dose: 90 mg - Labs Labs: 09/12/18 04:25 09/12/18 04:25 PT 11.6 Seconds (9.8-13.1) 09/07/18 21:20 INR 1.0 09/07/18 21:20 APTT 33.1 Seconds (25.6-37.1) 09/12/18 04:25 Assessment and Plan (1) Right leg pain Status: Acute (2) Arterial occlusion, lower extremity Status: Acute (3) DMII (diabetes mellitus, type 2) Status: Chronic (4) HTN (hypertension) Status: Chronic (5) History of atherectomy Status: Chronic (6) S/P angioplasty Status: Chronic (7) COPD (chronic obstructive pulmonary disease) Status: Chronic (8) PVD (peripheral vascular disease) Status: Chronic (9) Osteoarthritis Status: Chronic (10) Depression Status: Chronic (11) Anxiety Status: Chronic (12) Hyperglycemia due to type 2 diabetes mellitus Status: Acute (13) Diabetic neuropathy Status: Acute
--- NOTE | 2018-09-14 15:32 | CP.PCM.PN ---
Subjective - Date & Time of Evaluation Date of Evaluation: 09/14/18 Time of Evaluation: 15:15 - Subjective Subjective: continues to have reperfusion pain of RLE Objective - Vital Signs/Intake and Output Vital Signs (last 24 hours): Temp Pulse Resp BP Pulse Ox 98.5 F 115 H 20 149/69 98 09/14/18 12:25 09/14/18 12:25 09/14/18 12:25 09/14/18 12:25 09/14/18 12:25 - Medications Medications: Current Medications Amlodipine Besylate (Norvasc) 10 mg PO DAILY [facility] Last Admin: 09/14/18 08:55 Dose: 10 mg Atorvastatin Calcium (Lipitor) 40 mg PO DAILY [facility] Last Admin: 09/14/18 08:55 Dose: 40 mg Clopidogrel Bisulfate (Plavix) 75 mg PO DAILY [facility] Last Admin: 09/14/18 08:55 Dose: 75 mg Cyclobenzaprine HCl (Flexeril) 5 mg PO TID [facility] Last Admin: 09/14/18 08:52 Dose: 5 mg Docusate Sodium (Colace) 100 mg PO BID [facility] Last Admin: 09/14/18 08:51 Dose: 100 mg Ergocalciferol (Drisdol 50,000 Intl Units Cap) 1 cap PO QWK [facility] Insulin Detemir (Levemir) 30 units SC HS [facility] Last Admin: 09/13/18 23:14 Dose: 30 units Insulin Human Lispro (Humalog) 0 units SC ACHS [facility]; Protocol Last Admin: 09/14/18 11:48 Dose: Not Given Insulin Human Lispro (Humalog) 15 units SC AC [facility] Last Admin: 09/14/18 11:49 Dose: 15 units Losartan Potassium (Cozaar) 50 mg PO DAILY [facility] Last Admin: 09/14/18 08:52 Dose: 50 mg Mirtazapine (Remeron) 15 mg PO DAILY [facility] Last Admin: 09/14/18 08:56 Dose: 15 mg Montelukast Sodium (Singulair) 10 mg PO DAILY [facility] Last Admin: 09/14/18 08:56 Dose: 10 mg Oxycodone/Acetaminophen (Percocet 5/325 Mg Tab) 1 tab PO Q4 PRN PRN Reason: Pain, severe (8-10) Stop: 09/17/18 12:23 Last Admin: 09/14/18 12:38 Dose: 1 tab Pantoprazole Sodium (Protonix Ec Tab) 40 mg PO DAILY [facility] Last Admin: 09/14/18 08:56 Dose: 40 mg Pregabalin (Lyrica) 50 mg PO TID [facility] Last Admin: 09/14/18 12:38 Dose: 50 mg Ticagrelor (Brilinta) 90 mg PO BID [facility] Last Admin: 09/14/18 08:51 Dose: 90 mg - Labs Labs: 09/12/18 04:25 09/12/18 04:25 PT 11.6 Seconds (9.8-13.1) 09/07/18 21:20 INR 1.0 09/07/18 21:20 APTT 33.1 Seconds (25.6-37.1) 09/12/18 04:25 - Constitutional Appears: Well - Head Exam Head Exam: ATRAUMATIC, NORMAL INSPECTION, NORMOCEPHALIC - Eye Exam Eye Exam: EOMI, Normal appearance, PERRL Pupil Exam: NORMAL ACCOMODATION, PERRL - ENT Exam ENT Exam: Mucous Membranes Moist, Normal Exam - Neck Exam Neck Exam: Full ROM, Normal Inspection. absent: Lymphadenopathy - Respiratory Exam Respiratory Exam: Clear to Ausculation Bilateral, NORMAL BREATHING PATTERN - Cardiovascular Exam Cardiovascular Exam: REGULAR RHYTHM, +S1, +S2. absent: Murmur - GI/Abdominal Exam GI & Abdominal Exam: Soft, Normal Bowel Sounds. absent: Tenderness - Extremities Exam Extremities Exam: Full ROM, Normal Capillary Refill, Normal Inspection. absent: Joint Swelling, Pedal Edema - Back Exam Back Exam: NORMAL INSPECTION - Neurological Exam Neurological Exam: Alert, Awake, CN II-XII Intact, Normal Gait, Oriented x3 - Psychiatric Exam Psychiatric exam: Normal Affect, Normal Mood - Skin Skin Exam: Dry, Intact, Normal Color, Warm Assessment and Plan (1) Arterial occlusion, lower extremity Assessment & Plan: resolved post atherectomy/POBA with DCB Status: Acute (2) Right leg pain Assessment & Plan: pain control consider anesthesia/pain consult ischemic resolved ? reperfusion pain Status: Acute (3) Moderate COPD (chronic obstructive pulmonary disease) Status: Acute (4) PVD (peripheral vascular disease) Status: Acute (5) DMII (diabetes mellitus, type 2) Status: Chronic (6) HTN (hypertension) Status: Chronic
--- NOTE | 2018-09-14 21:51 | CP.PCM.DIS ---
Provider - Provider Date of Admission: 09/08/18 06:06 Attending physician: Luís David MD Consults: 09/08/18 05:54 Cardiology Consult Stat Comment: R leg pain, PAD Consulting Provider: Elijah Zavala Consulting Physician: Elijah Zavala Reason for Consult: R leg pain, PAD 09/14/18 11:04 Physician Consult Routine Comment: Consulting Provider: Juan Manuel King Consulting Physician: Juan Manuel King Reason for Consult: sp arterial effusion, severe pain Diagnosis - Discharge Diagnosis (1) Right leg pain Status: Acute Priority: High (2) Arterial occlusion, lower extremity Status: Acute Priority: High (3) DMII (diabetes mellitus, type 2) Status: Chronic Priority: High (4) HTN (hypertension) Status: Chronic Priority: Medium (5) History of atherectomy Status: Chronic Priority: High (6) S/P angioplasty Status: Chronic Priority: High (7) COPD (chronic obstructive pulmonary disease) Status: Chronic Priority: Medium (8) PVD (peripheral vascular disease) Status: Chronic Priority: Medium (9) Osteoarthritis Status: Chronic (10) Depression Status: Chronic Priority: Medium (11) Anxiety Status: Chronic Priority: High (12) Hyperglycemia due to type 2 diabetes mellitus Status: Acute Priority: High (13) Diabetic neuropathy Status: Acute Hospital Course - Lab Results Lab Results: Micro Results 09/10/18 18:04 Naris MRSA Culture (Admit) - Final MRSA NOT DETECTED Most Recent Lab Values WBC 8.9 K/uL (4.8-10.8) 09/12/18 04:25 RBC 3.09 Mil/uL (3.80-5.20) L 09/12/18 04:25 Hgb 9.0 g/dL (12.0-16.0) L 09/12/18 04:25 Hct 26.9 % (34.0-47.0) L 09/12/18 04:25 MCV 87.0 fl (81.0-99.0) 09/12/18 04:25 MCH 29.0 pg (27.0-31.0) 09/12/18 04:25 MCHC 33.3 g/dL (33.0-37.0) 09/12/18 04:25 RDW 14.3 % (11.5-14.5) 09/12/18 04:25 Plt Count 326 K/uL (130-400) 09/12/18 04:25 MPV 8.4 fl (7.2-11.7) 09/10/18 04:40 Neut % (Auto) 51.4 % (50.0-75.0) 09/10/18 04:40 Lymph % (Auto) 32.6 % (20.0-40.0) 09/10/18 04:40 [place] % (Auto) 10.6 % (0.0-10.0) H 09/10/18 04:40 Eos % (Auto) 4.9 % (0.0-4.0) H 09/10/18 04:40 Baso % (Auto) 0.5 % (0.0-2.0) 09/10/18 04:40 Neut # (Auto) 4.0 K/uL (1.8-7.0) 09/10/18 04:40 Lymph # (Auto) 2.5 K/uL (1.0-4.3) 09/10/18 04:40 [place] # (Auto) 0.8 K/uL (0.0-0.8) 09/10/18 04:40 Eos # (Auto) 0.4 K/uL (0.0-0.7) 09/10/18 04:40 Baso # (Auto) 0.0 K/uL (0.0-0.2) 09/10/18 04:40 PT 11.6 Seconds (9.8-13.1) 09/07/18 21:20 INR 1.0 09/07/18 21:20 APTT 33.1 Seconds (25.6-37.1) 09/12/18 04:25 Sodium 138 mmol/l (132-148) 09/12/18 04:25 Potassium 4.5 MMOL/L (3.6-5.0) 09/12/18 04:25 Chloride 108 mmol/L (98-107) H 09/12/18 04:25 Carbon Dioxide 26 mmol/L (22-30) 09/12/18 04:25 Anion Gap 9 (10-20) L 09/12/18 04:25 BUN 18 mg/dl (7-17) H 09/12/18 04:25 Creatinine 1.3 mg/dl (0.7-1.2) H 09/12/18 04:25 Est GFR ( Amer) 48 09/12/18 04:25 Est GFR (Non-Af Amer) 40 09/12/18 04:25 POC Glucose (mg/dL) 95 mg/dL (65-110) 09/14/18 16:05 Random Glucose 150 mg/dL (65-105) H 09/12/18 04:25 Calcium 9.6 mg/dL (8.4-10.2) 09/12/18 04:25 Total Bilirubin 0.2 mg/dl (0.2-1.3) 09/10/18 04:40 AST 34 U/L (14-36) 09/10/18 04:40 ALT 29 U/L (9-52) 09/10/18 04:40 Alkaline Phosphatase 106 U/L (38-126) 09/10/18 04:40 Total Protein 7.7 G/DL (6.3-8.2) 09/10/18 04:40 Albumin 3.9 g/dL (3.5-5.0) 09/10/18 04:40 Globulin 3.9 gm/dL (2.2-3.9) 09/10/18 04:40 Albumin/Globulin Ratio 1.0 (1.0-2.1) 09/10/18 04:40 Blood Type A POSITIVE 09/07/18 21:20 Antibody Screen Negative 09/07/18 21:20 BBK History Checked Patient has bt 09/07/18 21:20 Discharge Exam - Head Exam Head Exam: ATRAUMATIC, NORMAL INSPECTION, NORMOCEPHALIC Discharge Plan - Discharge Medications Prescriptions: Ticagrelor [Brilinta] 90 mg PO BID #60 tab Pregabalin [Lyrica] 50 mg PO TID #90 cap oxyCODONE/Acetaminophen [Percocet 5/325 mg Tab] 1 tab PO Q4 PRN #20 tab PRN Reason: Pain, Severe (8-10) - Follow Up Plan Condition: STABLE Disposition: HOME/ ROUTINE Instructions: Peripheral Vascular (Arterial) Disease (DC) Referrals: Luís David MD [Family Provider] -
== END 2018-09-14 16:50 | disposition home or self-care (01) | DRG 253 ==
LOC: H.ER 19:56 → H.ERHOLD 09-08 06:06 → H.ICU/CCU 09-08 08:42 → H.TEL 09-10 23:41
PROVIDERS: ADMIT Internal Medicine Pulmonary Disease; ATTEND Internal Medicine Pulmonary Disease
PROC: 047K3D1 Dilation of Right Femoral Artery with Intraluminal Device, using Drug-Coated Balloon, Percutaneous Approach (ICD-10-PCS; principal; 2018-09-11)
DX: I70.291 Other atherosclerosis of native arteries of extremities, right leg (principal); I13.0 Hypertensive heart and chronic kidney disease with heart failure and stage 1 through stage 4 chronic kidney disease, or unspecified chronic kidney disease; I77.1 Stricture of artery; N18.3 Chronic kidney disease, stage 3 (moderate); I50.9 Heart failure, unspecified; Z79.01 Long term (current) use of anticoagulants; Z79.02 Long term (current) use of antithrombotics/antiplatelets; Z87.01 Personal history of pneumonia (recurrent); Z87.891 Personal history of nicotine dependence; Z88.6 Allergy status to analgesic agent; D63.8 Anemia in other chronic diseases classified elsewhere; E11.22 Type 2 diabetes mellitus with diabetic chronic kidney disease; E11.51 Type 2 diabetes mellitus with diabetic peripheral angiopathy without gangrene; E11.65 Type 2 diabetes mellitus with hyperglycemia; E11.40 Type 2 diabetes mellitus with diabetic neuropathy, unspecified; E78.5 Hyperlipidemia, unspecified; E78.00 Pure hypercholesterolemia, unspecified; J44.9 Chronic obstructive pulmonary disease, unspecified; M81.0 Age-related osteoporosis without current pathological fracture; F32.9 Major depressive disorder, single episode, unspecified; F41.9 Anxiety disorder, unspecified; E05.00 Thyrotoxicosis with diffuse goiter without thyrotoxic crisis or storm

== ENCOUNTER 2018-09-20 15:47 | Inpatient (IN) | payer MEDICARE, MEDICAID ==
[2018-09-20 15:47] VITALS: BMI 28.3
[2018-09-20] MEDS ORDERED: Morphine 4 MG/ML VIAL IV STA (16:31)
[2018-09-20] MEDS ORDERED: Piperacillin/Tazobact 4.5 GM in Sodium Chloride 0.9% 100 ML IVPB STA (16:54)
--- NOTE | 2018-09-20 16:58 | ED PDOC ---
Lower Extremity Pain/Injury Time Seen by Provider: 09/20/18 16:17 Chief Complaint (Nursing): Lower Extremity Problem/Injury Chief Complaint (Provider): Toe infection History Per: Patient, Family, Business Director (Daughter) Additional Complaint(s): Pt sent by Dr. Marks (Podiatry) for evaluation of L 1st toe. Daughter states started out as bump of tip of toe, now bigger and under toenail. Pt discharged from [facility] on 09/14/18 s/p atherectomy and DOBA of LLE, discharged home on Brilinta. States pain in LLE, unchanged. Past Medical History Vital Signs: Last Vital Signs Temp 98.9 F 09/20/18 16:08 Pulse 108 H 09/20/18 16:08 Resp 16 09/20/18 16:08 BP 147/61 09/20/18 16:08 Pulse Ox 100 09/20/18 16:08 - Medical History PMH: Anemia, Anxiety, Arthritis, Asthma, CHF, Depression, Diabetes, Graves' Disease, HTN, Hypercholesterolemia, Osteoporosis, Pneumonia (Daughter denies) Denies: COPD (Daughter denies), HIV, Hypothyroidism, Chronic Kidney Disease - Family History Family History: States: Unknown Family Hx - Living Arrangements Living Arrangements: With Family - Social History Current smoker - smoking cessation education provided: No - Immunization History Hx Influenza Vaccination: Yes Hx Pneumococcal Vaccination: Yes - Home Medications Home Medications: Ambulatory Orders Medication Instructions Recorded Mirtazapine [Remeron] 15 mg PO DAILY 10/13/17 Montelukast [Singulair] 10 mg PO DAILY 10/13/17 Insulin Aspart, Recombinant 12 unit SC TIDAC unit 05/10/18 [Novolog] Insulin Glargine, Recombina 30 unit SC HS unit 05/10/18 [Lantus] hydroCHLOROthiazide [Microzide] 12.5 mg PO DAILY cap 05/10/18 Atorvastatin [Lipitor] 40 mg PO DAILY 09/08/18 Cholecalciferol [Vitamin D 1000 IU] 50,000 iu PO QWK 09/08/18 Clopidogrel [Plavix] 75 mg PO DAILY 09/08/18 Cyclobenzaprine [Flexeril] 5 mg PO TID 09/08/18 Irbesartan [Avapro] 300 mg PO DAILY 09/08/18 Omeprazole 40 mg PO DAILY 09/08/18 Pregabalin [Lyrica] 50 mg PO HS 09/08/18 amLODIPine [Norvasc] 10 mg PO DAILY 09/08/18 oxyCODONE/Acetaminophen [Percocet 1 tab PO Q4 PRN #20 tab 09/14/18 5/325 mg Tab] - Allergies Allergies/Adverse Reactions: Allergies Allergy/AdvReac Type Severity Reaction Status Date / Time aspirin AdvReac RASH Verified 09/20/18 16:08 Review of Systems Constitutional: Negative for: Fever Cardiovascular: Negative for: Chest Pain, Palpitations Musculoskeletal: Positive for: Leg Pain Skin: Positive for: Lesions. Negative for: Rash Physical Exam - Reviewed Nursing Documentation Reviewed: Yes Vital Signs Reviewed: Yes - Physical Exam Appears: Positive for: Well, No Acute Distress Skin: Positive for: Normal Color, Warm, Dry Eye Exam: Positive for: Normal appearance, EOMI, PERRL Cardiovascular/Chest: Positive for: Regular Rate, Rhythm Respiratory: Positive for: Normal Breath Sounds Extremity: Positive for: Tenderness, Other (R FOOT: 1st digit with ulceration distally, dry, no discharge, + erythema, + edeam, +1 DP pulse, sensation intact). Negative for: Pedal Edema - Laboratory Results Result Diagrams: 09/24/18 05:30 09/24/18 05:30 - ECG O2 Sat by Pulse Oximetry: 100 Medical Decision Making Medical Decision Makin yo female with R 1st toe cellulitis/diabetic ulcer, r/o osteomyelitis. - labs - EKG - CXR - XR R foot - Arterial ultrasound RLE 17:00 Pt evaluated in ED by Podiatry resident. Disposition - Clinical Impression Clinical Impression: Diabetic foot infection - Patient ED Disposition Is Patient to be Admitted: Yes - Disposition Disposition Time: 17:51 Condition: STABLE - Pt Status Changed To: Hospital Disposition Of: Inpatient - Admit Certification Admit to Inpatient:: After my assessment, the patient will require hospitalization for at least two midnights. This is because of the severity of symptoms shown, intensity of services needed, and/or the medical risk in this patient being treated as an outpatient. - POA Present On Arrival: None
--- NOTE | 2018-09-20 17:18 | CP.PCM.CON ---
History of Present Illness - History of Present Illness History of Present Illness: Podiatry consult note for attending Dr Marks: 78 y/o female patient with PMH of Anemia; Anxiety and depression; Arthritis, Asthma and COPD; CHF; Diabetes with neuropathy; Graves' Disease, HTN, HLD Osteoporosis, Pneumonia; PVD with Right lower extremity arterial occlusions seen and evaluated in the ED for R hallux infected ulcer and cellulitis.. Patient was accompanied by her daughter. Patient and her daughter provided the history. Patient daughter states that her mother had 3 angioplasties in the R leg the last one was 2 weeks ago. She states that the right leg is painful even after the angioplasties which was done by Dr Rodriges and Atherectomy done later by Dr Fierro. Patient daughter states that 2 weeks ago a bruises started to appear in the patient R big toe. She states that it got worse. She states that it's painfu l but the pain is less than usual as the patient has neuropathy. Patient daughter states that her mother used to bang her toe while wearing the shoe because she doesn't feel her leg properly. She states that today they went to Dr. Marks's office where her found out that there is an ulcer under the right big toe nail which is mostly infected so her sent her to the ED to get admitted. Patient denies any recent Headache, chest pain, SOB, and vomiting. but she states that she has nausea today. Her daughter states that her mother has tingling, numbness and burning sensation all the time in her feet due to neuropathy. PMH: Anemia; Anxiety and depression; Arthritis, Asthma and COPD; CHF; Diabetes with neuropathy; Graves' Disease, HTN, HLD Osteoporosis, Pneumonia; PVD with Right lower extremity arterial occlusion PSH: Angioplasty 3 times to the R LE. ORIF fracture L forearm. Allergies: Aspirin Social Hx: Former Smoker; Denies Alcohol and illegal drug use. Review of Systems - Review of Systems Review of Systems: As per HPI - Constitutional Constitutional: As Per HPI Past Patient History - Infectious Disease Hx of Infectious Diseases: None - Tetanus Immunizations Tetanus Immunization: Unknown - Past Medical History & Family History Past Medical History?: Yes - Past Social History Smoking Status: Former Smoker - CARDIAC Hx Congestive Heart Failure: Yes Hx Hypercholesterolemia: Yes Hx Hypertension: Yes - PULMONARY Hx Asthma: Yes Hx Chronic Obstructive Pulmonary Disease (COPD): No (Daughter denies) Hx Pneumonia: Yes (Daughter denies) - NEUROLOGICAL Hx Neurological Disorder: Yes Other/Comment: DM Neuropathy - HEENT Hx HEENT Problems: Yes (Allergic Rhinitis.) - RENAL Hx Chronic Kidney Disease: No - ENDOCRINE/METABOLIC Hx Hypothyroidism: No - HEMATOLOGICAL/ONCOLOGICAL Hx Anemia: Yes Hx Human Immunodeficiency Virus (HIV): No - INTEGUMENTARY Hx Dermatological Problems: No - MUSCULOSKELETAL/RHEUMATOLOGICAL Hx Arthritis: Yes Hx Osteoporosis: Yes - GASTROINTESTINAL Hx Gastrointestinal Disorders: No - GENITOURINARY/GYNECOLOGICAL Hx Genitourinary Disorders: No - PSYCHIATRIC Hx Anxiety: Yes Hx Depression: Yes - SURGICAL HISTORY Hx Surgeries: Yes Hx Angiogram: Yes (Angiogram lower extremities Dr Rodriges) Hx Orthopedic Surgery: Yes (left arm surgery) Other/Comment: R Femoral atherectomy and angioplasty Dr Zavala - ANESTHESIA Hx Anesthesia: Yes Hx Anesthesia Reactions: No Hx Malignant Hyperthermia: No Meds Allergies/Adverse Reactions: Allergies Allergy/AdvReac Type Severity Reaction Status Date / Time aspirin AdvReac RASH Verified 09/20/18 16:08 - Medications Medications: Current Medications Vancomycin HCl 1 gm/ Sodium (Chloride) 250 mls @ 166.667 mls/hr IVPB STAT STA; Protocol Stop: 09/20/18 18:23 Piperacillin Sod/Tazobactam (Sod 4.5 gm/ Sodium Chloride) 100 mls @ 100 mls/hr IVPB STAT STA; Protocol Stop: 09/20/18 17:53 Physical Exam - Constitutional Appears: Well, No Acute Distress - Head Exam Head Exam: ATRAUMATIC, NORMOCEPHALIC - Extremities Exam Additional comments: B/l LE focused exam: VASC: R DP pulses very faintly palpable R PT pulse is palpable 1/4, L DP/PT 2/4. Cap refill almost 3 sec to all digits. Temp gradient warm to warmer on the R side and warm to cool on the left side from proximal to distal. Non pitting edema noted on the right foot up to the ankle. Erythema extending from the R hallux to the R 1st MPJ. Small superficial varicosities noted to the L foot and ankle NEURO: Gross and Protective sensation are grossly diminished. DERM: an ulcer measuring 1.2X1.2X0.3cm noted in the nail bed of the R hallux. Positive purulent discharge, positive probe to bone, No malodor, No tracking or undermining. Base is granular: fibrotic 50:50 with black eschar covering the tip of the toe. Erythema extending from the R hallux to the R 1st MPJ. Positive clinical signs of active infection. MSK: Mild pain to palpation of the R hallux. Muscle power intact 5/5 to all groups. - Neurological Exam Neurological exam: Alert, Oriented x3 Results - Vital Signs Recent Vital Signs: Last Vital Signs Temp 98.9 F 09/20/18 16:08 Pulse 108 H 09/20/18 16:08 Resp 16 09/20/18 16:08 BP 147/61 09/20/18 16:08 Pulse Ox 100 09/20/18 17:12 Assessment & Plan - Assessment and Plan (Free Text) Assessment: 78 y/o female patient seen and evaluated in the ED for R hallux infected ulcer and cellulitis. Plan: Patient seen and evaluated in ED Discussed with attending Dr. Marks coil assembler number [id number] used for translation Labs and vitals reviewed- Afebrile, WBCs; pending R foot X-ray; Pending official report Wound dressed with bacitracin and DSD Ordered Sulvadine cream to be added to the dressing starting from tomorrow Wound culture taken of R foot ulceration Patient received stat dose of Vanco/Zosyn in ED. ID consulted; recommendations appreciated Vascular sx consulted; recommendations appreciated Patient to be admitted to hospital- continue IV abx on floors as per primary team Ordered RLE MRI Ordered ESR and CRP Podiatry will continue to follow up the patient while in house - Date & Time Date: 09/20/18 Time: 17:18
--- NOTE | 2018-09-20 17:42 | RAD ---
Date of service: 09/20/2018 PROCEDURE: Right Foot Radiographs. HISTORY: 1st digit cellulitis COMPARISON: None. FINDINGS: BONES: No evidence of osteomyelitis. JOINTS: Multiple hammertoe deformities noted. SOFT TISSUES: Soft tissue swelling primarily affecting the 1st digit. OTHER FINDINGS: None. IMPRESSION: Soft tissue swelling without acute articular or osseous abnormality.
--- NOTE | 2018-09-20 17:47 | RAD ---
Date of service: 09/20/2018 PROCEDURE: CHEST RADIOGRAPH, 1 VIEW HISTORY: Admission COMPARISON: 09.08.18 FINDINGS: LUNGS: Clear. PLEURA: No pneumothorax or pleural fluid seen. CARDIOVASCULAR: No aortic atherosclerotic calcification present. Normal. OSSEOUS STRUCTURES: No significant abnormalities. VISUALIZED UPPER ABDOMEN: Normal. OTHER FINDINGS: None. IMPRESSION: No active disease.No significant interval change compared to the prior examination(s).
[2018-09-20] MEDS ORDERED: Ergocalciferol 50,000 Intl Units Cap PO SCH (18:30)
--- NOTE | 2018-09-20 18:30 | US ---
Date of service: 09/20/2018 PROCEDURE: Duplex ultrasound of the right lower extremity arteries. HISTORY: RLE Pain COMPARISON: 09/07/2018 CT angiogram lower extremities 05/05/2018 CT angiogram lower extremities 05/05/2018 right lower extremity vascular arterial study. TECHNIQUE: Grayscale and duplex Doppler evaluation of the right common femoral, superficial femoral, popliteal, posterior tibial and dorsalis pedis arteries was performed.. FINDINGS: COMMON FEMORAL ARTERY: Patent. Maximal flow velocity of 267.8 cm/s. Monophasic waveform. Findings consistent with inflow disease identified on prior studies. SUPERFICIAL FEMORAL ARTERY:Patent. Maximal flow velocity of 206.7 cm/s. Monophasic waveform POPLITEAL ARTERY:Patent. Maximal flow velocity of 92.3 cm/s. Monophasic waveform POSTERIOR TIBIAL ARTERY: Patent. Maximal flow velocity of 74.9 cm/s. DORSALIS PEDIS ARTERY: Patent. Maximal flow velocity of 59.2 cm/s. OTHER FINDINGS: None. IMPRESSION: Inflow disease resulting in high common femoral artery flow. Atherosclerotic disease and areas of narrowing/stenoses noted in the right SFA and common femoral artery. Flow is identified popliteal artery, posterior tibial artery and dorsalis pedis vessel.
[2018-09-20] MEDS ORDERED: Morphine 4 MG/ML VIAL ONE (18:41)
[2018-09-20] MEDS ORDERED: Vancomycin 1 g Inj ONE (18:42)
[2018-09-20 18:46] LABS: BASO # 0.1 K/uL (0.0-0.2); BASO % 0.7 % (0.0-2.0); EOS # 0.2 K/uL (0.0-0.7); EOS % 1.9 % (0.0-4.0); HEMOGLOBIN 9.8 g/dL (12.0-16.0); LYMPH # 2.3 K/uL (1.0-4.3); LYMPH % 24.7 % (20.0-40.0); MEAN CELL VOLUME 86.7 fl (81.0-99.0); MEAN CORPUSCULAR HEMOGLOBIN 28.2 pg (27.0-31.0); MEAN CORPUSCULAR HGB CONC 32.6 g/dL (33.0-37.0); MEAN PLATELET VOLUME 8.5 fl (7.2-11.7); MONO # 1.4 K/uL (0.0-0.8); NEUT # 5.3 K/uL (1.8-7.0); NEUT % 57.7 % (50.0-75.0); RBC 3.46 Mil/uL (3.80-5.20); RED CELL DISTRIBUTION WIDTH 13.8 % (11.5-14.5); WHITE BLOOD COUNT 9.2 K/uL (4.8-10.8)
--- NOTE | 2018-09-20 18:48 | CP.PCM.HP ---
<Rico Lucas - Last Filed: 09/20/18 19:39> History of Present Illness - History of Present Illness History of Present Illness: 78 years old female brought to the ED because of worsening pain to the right lower extremity with cold right foot. Pt was discharged from [facility] on 09/14/18. and states pain in LLE is unchanged. Pt was sent by Dr. Marks (Podiatry) for evaluation of L 1st toe pain and skin discoloration. 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 Daughter states that patient has a bump of tip of toe, now bigger and under toenail. Otherwise she denies fever, chills, headache, chest pain, SOB, palpitations, tingling, numbness, no urinary symptoms. PMD: Dr David PMH: Anemia; Anxiety and depression; Arthritis, Asthma and COPD; CHF; Diabetes with neuropathy; Graves' Disease, HTN, HLD Osteoporosis, Pneumonia; PVD with Right lower extremity arterial occlusion PSH: PVOD s/p atherectomy/CENTERLESS GRINDER OPERATOR of right SFA and atherectomy/CENTERLESS GRINDER OPERATOR with DCB of R POTTER OR CERAMIC ARTIST SH: Former Smoker; Denies Alcohol and illegal drug use; Live with daughter FH: States: No known family hx Allergies: Aspirin Medication: Reviewed Present on Admission - Present on Admission Any Indicators Present on Admission: No Review of Systems - Review of Systems All systems: reviewed and no additional remarkable complaints except (HPI) Past Patient History - Infectious Disease Hx of Infectious Diseases: None - Tetanus Immunizations Tetanus Immunization: Unknown - Past Medical History & Family History Past Medical History?: Yes - Past Social History Smoking Status: Former Smoker - CARDIAC Hx Congestive Heart Failure: Yes Hx Hypercholesterolemia: Yes Hx Hypertension: Yes - PULMONARY Hx Asthma: Yes Hx Chronic Obstructive Pulmonary Disease (COPD): No (Daughter denies) Hx Pneumonia: Yes (Daughter denies) - NEUROLOGICAL Hx Neurological Disorder: Yes Other/Comment: DM Neuropathy - HEENT Hx HEENT Problems: Yes (Allergic Rhinitis.) - RENAL Hx Chronic Kidney Disease: No - ENDOCRINE/METABOLIC Hx Hypothyroidism: No - HEMATOLOGICAL/ONCOLOGICAL Hx Anemia: Yes Hx Human Immunodeficiency Virus (HIV): No - INTEGUMENTARY Hx Dermatological Problems: No - MUSCULOSKELETAL/RHEUMATOLOGICAL Hx Arthritis: Yes Hx Osteoporosis: Yes - GASTROINTESTINAL Hx Gastrointestinal Disorders: No - GENITOURINARY/GYNECOLOGICAL Hx Genitourinary Disorders: No - PSYCHIATRIC Hx Anxiety: Yes Hx Depression: Yes - SURGICAL HISTORY Hx Surgeries: Yes Hx Angiogram: Yes (Angiogram lower extremities Dr Rodriges) Hx Orthopedic Surgery: Yes (left arm surgery) Other/Comment: R Femoral atherectomy and angioplasty Dr Zavala - ANESTHESIA Hx Anesthesia: Yes Hx Anesthesia Reactions: No Hx Malignant Hyperthermia: No Meds Allergies/Adverse Reactions: Allergies Allergy/AdvReac Type Severity Reaction Status Date / Time aspirin AdvReac RASH Verified 09/20/18 16:08 Physical Exam - Constitutional Appears: No Acute Distress - Head Exam Head Exam: NORMAL INSPECTION - Eye Exam Eye Exam: EOMI, PERRL - Respiratory Exam Respiratory Exam: Clear to Auscultation Bilateral, NORMAL BREATHING PATTERN - Cardiovascular Exam Cardiovascular Exam: REGULAR RHYTHM, +S1, +S2. absent: Tachycardia - GI/Abdominal Exam GI & Abdominal Exam: Normal Bowel Sounds, Soft. absent: Distended, Tenderness - Extremities Exam Extremities exam: Negative for: calf tenderness, pedal edema Additional comments: Dressing recently changed by Podiatry, looks clean and dry. - Neurological Exam Neurological exam: Alert, CN II-XII Intact, Oriented x3 - Skin Skin Exam: Dry, Warm Results - Vital Signs Recent Vital Signs: Last Vital Signs Temp 98.9 F 09/20/18 16:08 Pulse 108 H 09/20/18 16:08 Resp 16 09/20/18 16:08 BP 147/61 09/20/18 16:08 Pulse Ox 100 09/20/18 18:05 - Labs Result Diagrams: 09/20/18 18:30 09/20/18 18:30 Labs: Laboratory Results - last 24 hr 09/20/18 18:14 POC Glucose (mg/dL) 132 H Assessment & Plan - Assessment and Plan (Free Text) Assessment: 78 years old female brought to the ED because of worsening pain to the right lower extremity with cold right foot. Plan: R 1st toe cellulitis/diabetic ulcer, r/o osteomyelitis. 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 - R foot x ray: soft tissue swelling w/o articular or bone abnormalities. - LE duplex: Inflow disease resulting in high common femoral artery flow. Atherosclerotic disease and areas of narrowing/stenosis noted in the right SFA and common femoral artery. Flow is identified popliteal artery, posterior tibial artery and dorsalis pedis vessel. - Vascular consult Dr Zavala, recs appreciated - Podiatry consult, recs appreciated - ID consult, recs appreciated - plavix - Brilinta - Crestor - Pain management - f/u foot MRI - IV abx - f/u labs and cx in am h/o CKD III - chronic, stable - BUN/Cr 24/1.2, GFR 43 - Follow labs IDDM - HbA1c 7.8 on 05/21/18 - Lispro Insulin sliding scale according to sliding scale DVT prophylaxis: - heparin BID Code Status: full Case seen and examined with Dr Aguillon <Vijya Aguillon - Last Filed: 09/20/18 22:47> Results - Vital Signs Recent Vital Signs: Last Vital Signs Temp 99 F 09/20/18 22:09 Pulse 105 H 09/20/18 22:09 Resp 18 09/20/18 22:09 BP 147/70 09/20/18 22:09 Pulse Ox 98 09/20/18 22:09 - Labs Result Diagrams: 09/20/18 18:30 09/20/18 18:30 Labs: Laboratory Results - last 24 hr 09/20/18 09/20/18 09/20/18 18:14 18:30 18:30 WBC 9.2 RBC 3.46 L Hgb 9.8 L Hct 30.0 L MCV 86.7 MCH 28.2 MCHC 32.6 L RDW 13.8 Plt Count 414 H MPV 8.5 Neut % (Auto) 57.7 Lymph % (Auto) 24.7 Christian % (Auto) 15.0 H Eos % (Auto) 1.9 Baso % (Auto) 0.7 Neut # (Auto) 5.3 Lymph # (Auto) 2.3 Christian # (Auto) 1.4 H Eos # (Auto) 0.2 Baso # (Auto) 0.1 ESR 99 H PT 12.6 INR 1.1 APTT 35.9 Sodium Potassium Chloride Carbon Dioxide Anion Gap BUN Creatinine Est GFR ( Amer) Est GFR (Non-Af Amer) POC Glucose (mg/dL) 132 H Random Glucose Calcium Total Bilirubin AST ALT Alkaline Phosphatase C-Reactive Protein Total Protein Albumin Globulin Albumin/Globulin Ratio Blood Type Antibody Screen BBK History Checked 09/20/18 09/20/18 09/20/18 18:30 18:30 22:11 WBC RBC Hgb Hct MCV MCH MCHC RDW Plt Count MPV Neut % (Auto) Lymph % (Auto) Christian % (Auto) Eos % (Auto) Baso % (Auto) Neut # (Auto) Lymph # (Auto) Christian # (Auto) Eos # (Auto) Baso # (Auto) ESR PT INR APTT Sodium 141 Potassium 4.7 Chloride 102 Carbon Dioxide 27 Anion Gap 17 BUN 24 H Creatinine 1.2 Est GFR ( Amer) 53 Est GFR (Non-Af Amer) 43 POC Glucose (mg/dL) 139 H Random Glucose 127 H Calcium 10.3 H Total Bilirubin 0.1 L AST 32 ALT 24 Alkaline Phosphatase 102 C-Reactive Protein 18.30 H Total Protein 8.7 H Albumin 4.5 Globulin 4.2 H Albumin/Globulin Ratio 1.1 Blood Type A POSITIVE Antibody Screen Negative BBK History Checked Patient has bt Attending/Attestation - Attestation I have personally seen and examined this patient.: Yes I have fully participated in the care of the patient.: Yes I have reviewed all pertinent clinical information: Yes Notes (Text): 09/20/18 22:46 Patient seen and examined with resident. Case discussed and agreed with assessment and plan of management.
[2018-09-20 19:05] LABS: ALB/GLOB RATIO 1.1 (1.0-2.1); ALBUMIN 4.5 g/dL (3.5-5.0); CALCIUM 10.3 mg/dL (8.4-10.2)
[2018-09-20 19:06] LABS: INR 1.1; PROTHROMBIN TIME 12.6 Seconds (9.8-13.1)
[2018-09-20 19:09] LABS: PARTIAL THROMBOPLASTIN TIME 35.9 Seconds (25.6-37.1)
[2018-09-20] MEDS ORDERED: Dextrose 50% SYRINGE Inj (50 ml) IV PRN (19:51)
[2018-09-20] MEDS ORDERED: Glucagon Recombinant 1 mg Inj IM PRN (19:51)
[2018-09-20] MEDS ORDERED: Piperacillin/Tazobact 3.375 gm Inj IVPB ONE (21:03)
[2018-09-20] MEDS: Piperacillin/Tazobact 3.375 GM in Sodium Chloride 0.9% 100 ML IVPB SCH (21:07)
[2018-09-20] MEDS: Oxycodone/Acetaminophen 5/325 mg Tab PO PRN (22:08)
[2018-09-20 22:46] LABS: SQUAMOUS EPITHIAL 1 /hpf (0-5); URINE BILIRUBIN NEGATIVE (NEGATIVE); URINE BLOOD NEGATIVE (NEGATIVE); URINE CLARITY SLIGHTY-CLOUDY (Clear); URINE COLOR YELLOW (YELLOW); URINE GLUCOSE (UA) NEG (NEGATIVE); URINE LEUKOCYTE ESTERASE NEG Leu/uL (Negative); URINE PROTEIN NEGATIVE (NEGATIVE); URINE UROBILINOGEN 0.2-1.0 mg/dL (0.2-1.0)
[2018-09-20] MEDS: Insulin Lispro (humaLOG) 100 Units/ml Inj SC SCH (23:20)
[2018-09-21] MEDS: Sodium Chloride 0.9% 1,000 ML IV SCH ×2 (00:10→12:43)
[2018-09-21] MEDS: Oxycodone/Acetaminophen 5/325 mg Tab PO PRN (01:41)
[2018-09-21] MEDS: Piperacillin/Tazobact 3.375 GM in Sodium Chloride 0.9% 100 ML IVPB SCH ×4 (04:52→17:47)
[2018-09-21 06:28] LABS: BASO # 0.1 K/uL (0.0-0.2); BASO % 0.8 % (0.0-2.0); EOS # 0.2 K/uL (0.0-0.7); EOS % 2.6 % (0.0-4.0); HEMOGLOBIN 8.7 g/dL (12.0-16.0); LYMPH % 27.5 % (20.0-40.0); MEAN CELL VOLUME 86.6 fl (81.0-99.0); MEAN CORPUSCULAR HEMOGLOBIN 28.4 pg (27.0-31.0); MEAN CORPUSCULAR HGB CONC 32.8 g/dL (33.0-37.0); MEAN PLATELET VOLUME 8.3 fl (7.2-11.7); MONO # 1.6 K/uL (0.0-0.8); MONO % 21.7 % (0.0-10.0); NEUT # 3.4 K/uL (1.8-7.0); NEUT % 47.4 % (50.0-75.0); NRBC % 0.1 % (0.0-0.0); PLATELET COUNT 339 K/uL (130-400); RBC 3.06 Mil/uL (3.80-5.20); RED CELL DISTRIBUTION WIDTH 13.9 % (11.5-14.5); WHITE BLOOD COUNT 7.2 K/uL (4.8-10.8)
--- NOTE | 2018-09-21 06:30 | CP.PCM.PN ---
Subjective - Date & Time of Evaluation Date of Evaluation: 09/21/18 Time of Evaluation: 06:30 - Subjective Subjective: Podiatry consult note for attending Dr Marks: 78 y/o female patient seen and evaluated in the bedside for R hallux infected ulcer and cellulitis. Patient states that she has mild pain in her ulcer site at the R big toe. She denies any overnight F/N/V/C or SOB. SHe denies any other acute pedal complaints at this time. Objective - Vital Signs/Intake and Output Vital Signs (last 24 hours): Temp Pulse Resp BP Pulse Ox 98.6 F 99 H 18 115/64 98 09/20/18 23:43 09/20/18 23:43 09/20/18 23:43 09/20/18 23:43 09/20/18 23:43 - Medications Medications: Current Medications Albuterol/Ipratropium (Duoneb 3 Mg/0.5 Mg (3 Ml) Ud) 3 ml INH RQ4 PRN PRN Reason: Shortness of Breath Amlodipine Besylate (Norvasc) 10 mg PO DAILY [facility] Atorvastatin Calcium (Lipitor) 40 mg PO DAILY [facility] Benzonatate (Tessalon Perles) 100 mg PO Q8 PRN PRN Reason: Cough Last Admin: 09/21/18 01:15 Dose: 100 mg Clopidogrel Bisulfate (Plavix) 75 mg PO DAILY [facility] Cyclobenzaprine HCl (Flexeril) 5 mg PO TID [facility] Dextrose (Dextrose 50% Inj) 0 ml IV STAT PRN; Protocol PRN Reason: Hypoglycemia Protocol Dextrose (Glutose 15) 0 gm PO ONCE PRN; Protocol PRN Reason: Hypoglycemia Protocol Docusate Sodium (Colace) 100 mg PO BID [facility] Ergocalciferol (Drisdol 50,000 Intl Units Cap) 1 cap PO QWK [facility] Glucagon (Glucagen Diagnostic Kit) 0 mg IM STAT PRN; Protocol PRN Reason: Hypoglycemia Protocol Heparin Sodium (Porcine) (Heparin) 5,000 units SC Q12 [facility]; Protocol Last Admin: 09/20/18 21:06 Dose: 5,000 units Vancomycin HCl 1 gm/ Sodium (Chloride) 250 mls @ 166.667 mls/hr IVPB DAILY [facility]; Protocol Piperacillin Sod/Tazobactam (Sod 3.375 gm/ Sodium Chloride) 100 mls @ 100 mls/hr IVPB Q6 [facility]; Protocol Last Admin: 09/21/18 04:52 Dose: 100 mls/hr Sodium Chloride (Sodium Chloride 0.9%) 1,000 mls @ 80 mls/hr IV .[id number] [facility] Stop: 09/21/18 23:29 Last Admin: 09/21/18 00:10 Dose: 80 mls/hr Insulin Human Lispro (Humalog) 0 units SC ACCU-CHECK [facility]; Protocol Last Admin: 09/20/18 23:20 Dose: Not Given Mirtazapine (Remeron) 15 mg PO DAILY [facility] Montelukast Sodium (Singulair) 10 mg PO DAILY [facility] Oxycodone/Acetaminophen (Percocet 5/325 Mg Tab) 1 tab PO Q4 PRN PRN Reason: Pain, severe (8-10) Stop: 09/23/18 18:18 Last Admin: 09/21/18 01:41 Dose: 1 tab Pantoprazole Sodium (Protonix Ec Tab) 40 mg PO DAILY [facility] Pregabalin (Lyrica) 50 mg PO TID [facility] Ticagrelor (Brilinta) 90 mg PO BID [facility] Last Admin: 09/20/18 18:46 Dose: 90 mg - Labs Labs: 09/20/18 18:30 09/20/18 18:30 PT 12.6 Seconds (9.8-13.1) 09/20/18 18:30 INR 1.1 09/20/18 18:30 APTT 35.9 Seconds (25.6-37.1) 09/20/18 18:30 - Constitutional Appears: Well, Non-toxic, No Acute Distress - Head Exam Head Exam: ATRAUMATIC, NORMOCEPHALIC - Extremities Exam Additional comments: B/l LE focused exam: VASC: R DP pulses very faintly palpable R PT pulse is palpable 1/4, L DP/PT 2/4. Cap refill almost 3 sec to all digits. Temp gradient warm to warmer on the R side and warm to cool on the left side from proximal to distal. Non pitting edema noted on the right foot up to the ankle. Erythema extending from the R hallux to the R 1st MPJ. Small superficial varicosities noted to the L foot and ankle NEURO: Gross and Protective sensation are grossly diminished. DERM: an ulcer measuring 1.2X1.2X0.3cm noted in the nail bed of the R hallux. Positive purulent discharge, positive probe to bone, No malodor, No tracking or undermining. Base is granular: fibrotic 50:50 with black eschar covering the tip of the toe. Erythema extending from the R hallux to the R 1st MPJ. Positive clinical signs of active infection. MSK: Mild pain to palpation of the R hallux. Muscle power intact 5/5 to all groups. - Neurological Exam Neurological Exam: Alert, Awake, Oriented x3 - Psychiatric Exam Psychiatric exam: Normal Affect, Normal Mood Assessment and Plan - Assessment and Plan (Free Text) Assessment: 78 y/o female patient seen and evaluated in the bedside for R hallux infected ulcer and cellulitis. Plan: Patient seen and evaluated in bedside Discussed with attending Dr. Marks parent trainer number [id number] used for translation Labs and vitals reviewed- Afebrile, WBCs; 9.2 (09/20) Wound Cx: Pending R foot X-ray: Soft tissue swelling without acute articular or osseous anomalies. R foot MRI: Ordred RLE arterial duplex; Inflow disease with high common femoral artery flow, R common femoral artery and SFA have atherosclerotic disease with areas of narrowing and stenosis. Flow is identified in the popliteal, posterior tibial and DP arteries. ESR; 99 CRP: 18.30 Wound dressed with SSD and DSD Patient is on Vanco/Zosyn. ID consulted; recommendations appreciated Vascular sx consulted; recommendations appreciated Ordered RLE MRI Ordered surgical shoe. Patint to ambulate in the surgical shoe all the times Podiatry will continue to follow up the patient while in house
[2018-09-21 06:43] LABS: CALCIUM 9.3 mg/dL (8.4-10.2)
--- NOTE | 2018-09-21 07:00 | CP.PCM.PN ---
<Viktoriya Sandoval - Last Filed: 09/21/18 14:17> Subjective - Date & Time of Evaluation Date of Evaluation: 09/21/18 Time of Evaluation: 06:59 - Subjective Subjective: 78 yo female seen at bedside for worsening pain to the RLE with sensation of coldness of the right foot. Patient denies acute overnight events. Patient denies fever, chills, headache, chest pain, SOB, palpitations, tingling, numbness, no urinary symptoms. Patient states she has left posterior calf pain for the last two days. Patient also complains of dry cough that she has been experiencing for a few months, denies phlegm. States her cough is usually relieved with cough syrup that she does not have here. Objective - Vital Signs/Intake and Output Vital Signs (last 24 hours): Temp Pulse Resp BP Pulse Ox 98.6 F 99 H 18 115/64 98 09/20/18 23:43 09/20/18 23:43 09/20/18 23:43 09/20/18 23:43 09/20/18 23:43 - Medications Medications: Current Medications Albuterol/Ipratropium (Duoneb 3 Mg/0.5 Mg (3 Ml) Ud) 3 ml INH RQ4 PRN PRN Reason: Shortness of Breath Amlodipine Besylate (Norvasc) 10 mg PO DAILY [facility] Atorvastatin Calcium (Lipitor) 40 mg PO DAILY [facility] Benzonatate (Tessalon Perles) 100 mg PO Q8 PRN PRN Reason: Cough Last Admin: 09/21/18 01:15 Dose: 100 mg Clopidogrel Bisulfate (Plavix) 75 mg PO DAILY [facility] Cyclobenzaprine HCl (Flexeril) 5 mg PO TID [facility] Dextrose (Dextrose 50% Inj) 0 ml IV STAT PRN; Protocol PRN Reason: Hypoglycemia Protocol Dextrose (Glutose 15) 0 gm PO ONCE PRN; Protocol PRN Reason: Hypoglycemia Protocol Docusate Sodium (Colace) 100 mg PO BID [facility] Ergocalciferol (Drisdol 50,000 Intl Units Cap) 1 cap PO QWK [facility] Glucagon (Glucagen Diagnostic Kit) 0 mg IM STAT PRN; Protocol PRN Reason: Hypoglycemia Protocol Heparin Sodium (Porcine) (Heparin) 5,000 units SC Q12 [facility]; Protocol Last Admin: 09/20/18 21:06 Dose: 5,000 units Vancomycin HCl 1 gm/ Sodium (Chloride) 250 mls @ 166.667 mls/hr IVPB DAILY [facility]; Protocol Piperacillin Sod/Tazobactam (Sod 3.375 gm/ Sodium Chloride) 100 mls @ 100 mls/hr IVPB Q6 [facility]; Protocol Last Admin: 09/21/18 04:52 Dose: 100 mls/hr Sodium Chloride (Sodium Chloride 0.9%) 1,000 mls @ 80 mls/hr IV .[id number] [facility] Stop: 09/21/18 23:29 Last Admin: 09/21/18 00:10 Dose: 80 mls/hr Insulin Human Lispro (Humalog) 0 units SC ACCU-CHECK [facility]; Protocol Last Admin: 09/20/18 23:20 Dose: Not Given Mirtazapine (Remeron) 15 mg PO DAILY [facility] Montelukast Sodium (Singulair) 10 mg PO DAILY [facility] Oxycodone/Acetaminophen (Percocet 5/325 Mg Tab) 1 tab PO Q4 PRN PRN Reason: Pain, severe (8-10) Stop: 09/23/18 18:18 Last Admin: 09/21/18 01:41 Dose: 1 tab Pantoprazole Sodium (Protonix Ec Tab) 40 mg PO DAILY [facility] Pregabalin (Lyrica) 50 mg PO TID [facility] Ticagrelor (Brilinta) 90 mg PO BID [facility] Last Admin: 09/20/18 18:46 Dose: 90 mg - Labs Labs: 09/21/18 05:20 09/21/18 05:20 PT 12.6 Seconds (9.8-13.1) 09/20/18 18:30 INR 1.1 09/20/18 18:30 APTT 35.9 Seconds (25.6-37.1) 09/20/18 18:30 - Constitutional Appears: Well, Non-toxic, No Acute Distress - Head Exam Head Exam: ATRAUMATIC, NORMOCEPHALIC - Eye Exam Eye Exam: EOMI, Normal appearance Pupil Exam: NORMAL ACCOMODATION - ENT Exam ENT Exam: Mucous Membranes Moist - Respiratory Exam Respiratory Exam: Clear to Ausculation Bilateral, NORMAL BREATHING PATTERN - Cardiovascular Exam Cardiovascular Exam: REGULAR RHYTHM, +S1, +S2 - GI/Abdominal Exam GI & Abdominal Exam: Normal Bowel Sounds - Extremities Exam Additional comments: Dressing noted to be clean, dry and intact. Assessment and Plan - Assessment and Plan (Free Text) Assessment: 78 years old female brought to the ED because of worsening pain to the right lower extremity with cold right foot. Plan: R 1st toe cellulitis/diabetic ulcer, r/o osteomyelitis. PVD with Partial Right Femoral Artery occlusion - afebrile, VSS, WBC WNL - s/p Angiogram with Right femoral atherectomy, on March [address] Rodriges and s/p atherectomy/TANKER DRIVER with DCB of R STABLE HAND on 09/12/[address] Zavala at [facility]. - R foot x ray: soft tissue swelling w/o articular or bone abnormalities. - LE duplex: Inflow disease resulting in high common femoral artery flow. Atherosclerotic disease and areas of narrowing/stenosis noted in the right SFA and common femoral artery. Flow is identified popliteal artery, posterior tibial artery and dorsalis pedis vessel. - Vascular consult Dr Zavala, recs appreciated - Podiatry consult, recs appreciated - ID consult, recs appreciated - Lovenox - Crestor - Pain management - f/u foot MRI - IV abx- continue vancomycin and zosyn - f/u vancomycin trough - f/u labs and cx h/o CKD III - chronic, stable - BUN/Cr 24/1.2, GFR 43 - Follow labs IDDM - HbA1c 7.8 on 05/21/18 - Lispro Insulin sliding scale according to sliding scale DVT prophylaxis: - heparin BID - f/u L/E venous duplex. Code Status: full <Vijay Aguillon D - Last Filed: 09/21/18 16:51> Objective - Vital Signs/Intake and Output Vital Signs (last 24 hours): Temp Pulse Resp BP Pulse Ox 99.5 F 88 20 123/62 99 09/21/18 16:18 09/21/18 16:18 09/21/18 16:18 09/21/18 16:18 09/21/18 16:18 - Medications Medications: Current Medications Albuterol/Ipratropium (Duoneb 3 Mg/0.5 Mg (3 Ml) Ud) 3 ml INH RQ4 PRN PRN Reason: Shortness of Breath Amlodipine Besylate (Norvasc) 10 mg PO DAILY [facility] Last Admin: 09/21/18 09:02 Dose: 10 mg Atorvastatin Calcium (Lipitor) 40 mg PO DAILY [facility] Last Admin: 09/21/18 09:02 Dose: 40 mg Benzonatate (Tessalon Perles) 100 mg PO Q8 PRN PRN Reason: Cough Last Admin: 09/21/18 12:44 Dose: 100 mg Cyclobenzaprine HCl (Flexeril) 5 mg PO TID [facility] Last Admin: 09/21/18 12:47 Dose: 5 mg Dextrose (Dextrose 50% Inj) 0 ml IV STAT PRN; Protocol PRN Reason: Hypoglycemia Protocol Dextrose (Glutose 15) 0 gm PO ONCE PRN; Protocol PRN Reason: Hypoglycemia Protocol Docusate Sodium (Colace) 100 mg PO BID [facility] Last Admin: 09/21/18 09:01 Dose: 100 mg Enoxaparin Sodium (Lovenox) 70 mg SC HS [facility]; Protocol Ergocalciferol (Drisdol 50,000 Intl Units Cap) 1 cap PO QWK [facility] Last Admin: 09/21/18 09:01 Dose: 1 cap Glucagon (Glucagen Diagnostic Kit) 0 mg IM STAT PRN; Protocol PRN Reason: Hypoglycemia Protocol Vancomycin HCl 1 gm/ Sodium (Chloride) 250 mls @ 166.667 mls/hr IVPB DAILY [facility]; Protocol Last Admin: 09/21/18 09:08 Dose: 166.667 mls/hr Sodium Chloride (Sodium Chloride 0.9%) 1,000 mls @ 80 mls/hr IV .[id number] [facility] Stop: 09/21/18 23:29 Last Admin: 09/21/18 12:43 Dose: 80 mls/hr Piperacillin Sod/Tazobactam (Sod 3.375 gm/ Sodium Chloride) 100 mls @ 100 mls/hr IVPB Q8H [facility]; Protocol Last Admin: 09/21/18 10:59 Dose: Not Given Insulin Human Lispro (Humalog) 0 units SC ACCU-CHECK [facility]; Protocol Last Admin: 09/21/18 12:42 Dose: 1 unit Mirtazapine (Remeron) 15 mg PO HS [facility] Montelukast Sodium (Singulair) 10 mg PO DAILY [facility] Last Admin: 09/21/18 12:41 Dose: 10 mg Oxycodone/Acetaminophen (Percocet 5/325 Mg Tab) 1 tab PO Q4 PRN PRN Reason: Pain, severe (8-10) Stop: 09/23/18 18:18 Last Admin: 09/21/18 01:41 Dose: 1 tab Pantoprazole Sodium (Protonix Ec Tab) 40 mg PO DAILY [facility] Last Admin: 09/21/18 09:03 Dose: 40 mg Pregabalin (Lyrica) 50 mg PO TID [facility] Last Admin: 09/21/18 12:41 Dose: 50 mg - Labs Labs: 09/21/18 05:20 09/21/18 05:20 PT 12.6 Seconds (9.8-13.1) 09/20/18 18:30 INR 1.1 09/20/18 18:30 APTT 35.9 Seconds (25.6-37.1) 09/20/18 18:30 Attending/Attestation - Attestation I have personally seen and examined this patient.: Yes I have fully participated in the care of the patient.: Yes I have reviewed all pertinent clinical information, including history, physical exam and plan: Yes Notes (Text): 09/21/18 16:50 Patient seen and examined with resident. Case discussed and agreed with assessment
[2018-09-21 08:07] LABS: BANDS 1 % (0-2); LARGE PLATELETS PRESENT; LYMPHOCYTE 25 % (20-50); METAMYELOCYTE 1 % (0-0); MONOCYTE 14 % (0-10); NEUTROPHIL 57 % (42-75); PLATELET ESTIMATE NORMAL (NORMAL); REACTIVE LYMPHOCYTES 2 % (0-0); TOTAL CELLS COUNTED 100
[2018-09-21 08:08] LABS: HYPOCHROMIC SLIGHT; OVALOCYTES SLIGHT; PLATELET CLUMPS PRESENT; TOXIC GRANULATION PRESENT
[2018-09-21 08:12] LABS: ANISOCYTOSIS SLIGHT
[2018-09-21] MEDS: Insulin Lispro (humaLOG) 100 Units/ml Inj SC SCH ×4 (09:02→22:00)
[2018-09-21] MEDS: Pantoprazole 40 mg EC Tab PO SCH (09:03)
--- NOTE | 2018-09-21 10:09 | CP.PCM.CON ---
History of Present Illness - History of Present Illness History of Present Illness: Infectious Disease Consultation Note- Asked to see this patient at the request of Gluing Pressman for right gret toe ulcer/cellulitis HPI- History obtained from patient's daughter who is at her bedside and the medical chart as patient is not good historian. Alcides is a 78 year old female with PMH of DM II, HTN, PVD with recent RLE zaira ograms with right femoral atherectomy 03/2018 and s/p atherectomy/PROFESSOR OF COMMUNICATION with DCB of R METAL FURNITURE GLAZIER on 09/12/[address] Zavala at [facility] who was admitted with c/o right toe foot pain for past few days. per alcides's daughter her mom developed first an ulcer/on the left great toe which healed on it's own and few days later on her right great toe but this one did not heal and progressively worsened with surrounding edema and erythema and hence pt. saw her fryline attendant yesterday who advised her to go to ER to have further evaluation and treatment. per pt's daughter pt. had local bedside debridement of the right great toe nail bed where she has the ulcer by podiatry in ED and culture was taken. I'm asked to help with antibiotic management. pt. denies any fever or chills. PMD: Dr David PMH: Anemia; Anxiety and depression; Arthritis, Asthma and COPD; CHF; Diabetes with neuropathy; Graves' Disease, HTN, HLD Osteoporosis, Pneumonia; PVD with Right lower extremity arterial occlusion PSH: PVOD s/p atherectomy/PROFESSOR OF COMMUNICATION of right SFA and atherectomy/PROFESSOR OF COMMUNICATION with DCB of R METAL FURNITURE GLAZIER SH: Former Smoker; Denies Alcohol and illegal drug use; Live with daughter FH: States: No known family hx Allergies: Aspirin Medication: Reviewed Review of Systems - Review of Systems Review of Systems: ROS- denies any fever or chills, denies any BYRD, denies ay cough or sob, denies any chest pain, denies any abd. pain, denies any nausea or vomiting, denies any dysurea, denies any diarrhea right great toe ulcer with swelling adn redness and pain in Right foot and Right leg denies any trauma tot the region Past Patient History - Infectious Disease Hx of Infectious Diseases: None - Tetanus Immunizations Tetanus Immunization: Unknown - Past Medical History & Family History Past Medical History?: Yes - Past Social History Smoking Status: Former Smoker Alcohol: None Drugs: Denies Home Situation {Lives}: With Family - CARDIAC Hx Cardiac Disorders: Yes Hx Congestive Heart Failure: No (Daughter denies) Hx Hypercholesterolemia: Yes Hx Hypertension: Yes - PULMONARY Hx Respiratory Disorders: Yes Hx Asthma: Yes Hx Chronic Obstructive Pulmonary Disease (COPD): No (Daughter denies) Hx Pneumonia: Yes (Daughter denies) - HEENT Hx HEENT Problems: Yes (Allergic Rhinitis.) - RENAL Hx Chronic Kidney Disease: No - ENDOCRINE/METABOLIC Hx Endocrine Disorders: Yes Hx Diabetes Mellitus Type 2: Yes Hx Hypothyroidism: No - HEMATOLOGICAL/ONCOLOGICAL Hx Blood Disorders: Yes Hx Anemia: Yes - INTEGUMENTARY Hx Dermatological Problems: No - MUSCULOSKELETAL/RHEUMATOLOGICAL Hx Musculoskeletal Disorders: Yes (PVD) Hx Falls: No - GASTROINTESTINAL Hx Gastrointestinal Disorders: No - GENITOURINARY/GYNECOLOGICAL Hx Genitourinary Disorders: No - PSYCHIATRIC Hx Psychophysiologic Disorder: Yes Hx Anxiety: Yes Hx Depression: Yes Hx Substance Use: No - SURGICAL HISTORY Hx Surgeries: Yes Hx Angiogram: Yes (Angiogram lower extremities Dr Rodriges) Hx Orthopedic Surgery: Yes (left arm surgery) Other/Comment: R Femoral atherectomy and angioplasty Dr Zavala - ANESTHESIA Hx Anesthesia: Yes Hx Anesthesia Reactions: No Hx Malignant Hyperthermia: No Meds Allergies/Adverse Reactions: Allergies Allergy/AdvReac Type Severity Reaction Status Date / Time aspirin AdvReac RASH Verified 09/20/18 16:08 - Medications Medications: Current Medications Albuterol/Ipratropium (Duoneb 3 Mg/0.5 Mg (3 Ml) Ud) 3 ml INH RQ4 PRN PRN Reason: Shortness of Breath Amlodipine Besylate (Norvasc) 10 mg PO DAILY [facility] Last Admin: 09/21/18 09:02 Dose: 10 mg Atorvastatin Calcium (Lipitor) 40 mg PO DAILY [facility] Last Admin: 09/21/18 09:02 Dose: 40 mg Benzonatate (Tessalon Perles) 100 mg PO Q8 PRN PRN Reason: Cough Last Admin: 09/21/18 01:15 Dose: 100 mg Clopidogrel Bisulfate (Plavix) 75 mg PO DAILY [facility] Last Admin: 09/21/18 09:02 Dose: 75 mg Cyclobenzaprine HCl (Flexeril) 5 mg PO TID [facility] Last Admin: 09/21/18 09:01 Dose: 5 mg Dextrose (Dextrose 50% Inj) 0 ml IV STAT PRN; Protocol PRN Reason: Hypoglycemia Protocol Dextrose (Glutose 15) 0 gm PO ONCE PRN; Protocol PRN Reason: Hypoglycemia Protocol Docusate Sodium (Colace) 100 mg PO BID [facility] Last Admin: 09/21/18 09:01 Dose: 100 mg Ergocalciferol (Drisdol 50,000 Intl Units Cap) 1 cap PO QWK [facility] Last Admin: 09/21/18 09:01 Dose: 1 cap Glucagon (Glucagen Diagnostic Kit) 0 mg IM STAT PRN; Protocol PRN Reason: Hypoglycemia Protocol Vancomycin HCl 1 gm/ Sodium (Chloride) 250 mls @ 166.667 mls/hr IVPB DAILY [facility]; Protocol Last Admin: 09/21/18 09:08 Dose: 166.667 mls/hr Sodium Chloride (Sodium Chloride 0.9%) 1,000 mls @ 80 mls/hr IV .[id number] [facility] Stop: 09/21/18 23:29 Last Admin: 09/21/18 00:10 Dose: 80 mls/hr Piperacillin Sod/Tazobactam (Sod 3.375 gm/ Sodium Chloride) 100 mls @ 100 mls/hr IVPB Q8H [facility]; Protocol Insulin Human Lispro (Humalog) 0 units SC ACCU-CHECK [facility]; Protocol Last Admin: 09/21/18 09:02 Dose: Not Given Mirtazapine (Remeron) 15 mg PO DAILY [facility] Montelukast Sodium (Singulair) 10 mg PO DAILY [facility] Oxycodone/Acetaminophen (Percocet 5/325 Mg Tab) 1 tab PO Q4 PRN PRN Reason: Pain, severe (8-10) Stop: 09/23/18 18:18 Last Admin: 09/21/18 01:41 Dose: 1 tab Pantoprazole Sodium (Protonix Ec Tab) 40 mg PO DAILY [facility] Last Admin: 09/21/18 09:03 Dose: 40 mg Pregabalin (Lyrica) 50 mg PO TID [facility] Last Admin: 09/21/18 09:06 Dose: 50 mg Ticagrelor (Brilinta) 90 mg PO BID [facility] Last Admin: 09/21/18 09:00 Dose: 90 mg Physical Exam - Constitutional Appears: No Acute Distress - Head Exam Head Exam: ATRAUMATIC - Eye Exam Eye Exam: EOMI - ENT Exam ENT Exam: Normal Oropharynx - Neck Exam Neck exam: Positive for: Full Rom - Respiratory Exam Respiratory Exam: Clear to Auscultation Bilateral, NORMAL BREATHING PATTERN - Cardiovascular Exam Cardiovascular Exam: RRR, +S1, +S2 - GI/Abdominal Exam GI & Abdominal Exam: Normal Bowel Sounds, Soft Additional comments: NT, ND - Extremities Exam Additional comments: right great toe anterior region nail bed with debrided nail bed and slight yellow discharge, no malodor, surrounding erythema and edema, + tender to touch erythema localized to the toe region only - Neurological Exam Neurological exam: Alert Results - Vital Signs Recent Vital Signs: Last Vital Signs Temp 98.8 F 09/21/18 08:00 Pulse 98 H 09/21/18 08:00 Resp 20 09/21/18 08:00 BP 127/73 09/21/18 08:00 Pulse Ox 99 09/21/18 08:00 - Labs Result Diagrams: 09/21/18 05:20 09/21/18 05:20 Labs: Laboratory Results - last 24 hr 09/20/18 09/20/18 09/20/18 18:14 18:30 18:30 WBC 9.2 RBC 3.46 L Hgb 9.8 L Hct 30.0 L MCV 86.7 MCH 28.2 MCHC 32.6 L RDW 13.8 Plt Count 414 H MPV 8.5 Neut % (Auto) 57.7 Lymph % (Auto) 24.7 Garfield % (Auto) 15.0 H Eos % (Auto) 1.9 Baso % (Auto) 0.7 Neut # (Auto) 5.3 Lymph # (Auto) 2.3 Garfield # (Auto) 1.4 H Eos # (Auto) 0.2 Baso # (Auto) 0.1 Neutrophils % (Manual) Band Neutrophils % Lymphocytes % (Manual) Reactive Lymphs % Monocytes % (Manual) Metamyelocytes % Toxic Granulation Platelet Estimate Plt Clumps, EDTA Large Platelets Hypochromasia (manual) Anisocytosis (manual) Ovalocytes ESR 99 H PT 12.6 INR 1.1 APTT 35.9 Sodium Potassium Chloride Carbon Dioxide Anion Gap BUN Creatinine Est GFR ( Amer) Est GFR (Non-Af Amer) POC Glucose (mg/dL) 132 H Random Glucose Calcium Total Bilirubin AST ALT Alkaline Phosphatase C-Reactive Protein Total Protein Albumin Globulin Albumin/Globulin Ratio Urine Color Urine Clarity Urine pH Ur Specific [place] Urine Protein Urine Glucose (UA) Urine Ketones Urine Blood Urine Nitrate Urine Bilirubin Urine Urobilinogen Ur Leukocyte Esterase Urine RBC (Auto) Urine Microscopic WBC Ur Squamous Epith Cells Random Vancomycin Blood Type Antibody Screen BBK History Checked 09/20/18 09/20/18 09/20/18 18:30 18:30 22:11 WBC RBC Hgb Hct MCV MCH MCHC RDW Plt Count MPV Neut % (Auto) Lymph % (Auto) Garfield % (Auto) Eos % (Auto) Baso % (Auto) Neut # (Auto) Lymph # (Auto) Garfield # (Auto) Eos # (Auto) Baso # (Auto) Neutrophils % (Manual) Band Neutrophils % Lymphocytes % (Manual) Reactive Lymphs % Monocytes % (Manual) Metamyelocytes % Toxic Granulation Platelet Estimate Plt Clumps, EDTA Large Platelets Hypochromasia (manual) Anisocytosis (manual) Ovalocytes ESR PT INR APTT Sodium 141 Potassium 4.7 Chloride 102 Carbon Dioxide 27 Anion Gap 17 BUN 24 H Creatinine 1.2 Est GFR ( Amer) 53 Est GFR (Non-Af Amer) 43 POC Glucose (mg/dL) 139 H Random Glucose 127 H Calcium 10.3 H Total Bilirubin 0.1 L AST 32 ALT 24 Alkaline Phosphatase 102 C-Reactive Protein 18.30 H Total Protein 8.7 H Albumin 4.5 Globulin 4.2 H Albumin/Globulin Ratio 1.1 Urine Color Urine Clarity Urine pH Ur Specific [place] Urine Protein Urine Glucose (UA) Urine Ketones Urine Blood Urine Nitrate Urine Bilirubin Urine Urobilinogen Ur Leukocyte Esterase Urine RBC (Auto) Urine Microscopic WBC Ur Squamous Epith Cells Random Vancomycin Blood Type A POSITIVE Antibody Screen Negative BBK History Checked Patient has bt 09/20/18 09/21/18 09/21/18 22:40 05:20 05:20 WBC 7.2 RBC 3.06 L Hgb 8.7 L Hct 26.5 L MCV 86.6 MCH 28.4 MCHC 32.8 L RDW 13.9 Plt Count 339 MPV 8.3 Neut % (Auto) 47.4 L Lymph % (Auto) 27.5 Garfield % (Auto) 21.7 H Eos % (Auto) 2.6 Baso % (Auto) 0.8 Neut # (Auto) 3.4 Lymph # (Auto) 2.0 Garfield # (Auto) 1.6 H Eos # (Auto) 0.2 Baso # (Auto) 0.1 Neutrophils % (Manual) 57 Band Neutrophils % 1 Lymphocytes % (Manual) 25 Reactive Lymphs % 2 H Monocytes % (Manual) 14 H Metamyelocytes % 1 H Toxic Granulation Present Platelet Estimate Normal Plt Clumps, EDTA Present Large Platelets Present Hypochromasia (manual) Slight Anisocytosis (manual) Slight Ovalocytes Slight ESR PT INR APTT Sodium 137 Potassium 4.2 Chloride 103 Carbon Dioxide 26 Anion Gap 12 BUN 21 H Creatinine 1.3 H Est GFR ( Amer) 48 Est GFR (Non-Af Amer) 40 POC Glucose (mg/dL) Random Glucose 104 Calcium 9.3 Total Bilirubin AST ALT Alkaline Phosphatase C-Reactive Protein Total Protein Albumin Globulin Albumin/Globulin Ratio Urine Color Yellow Urine Clarity Slighty-cloudy Urine pH 6.0 Ur Specific [place] 1.011 Urine Protein Negative Urine Glucose (UA) Neg Urine Ketones Negative Urine Blood Negative Urine Nitrate Negative Urine Bilirubin Negative Urine Urobilinogen 0.2-1.0 Ur Leukocyte Esterase Neg Urine RBC (Auto) < 1 Urine Microscopic WBC 2 Ur Squamous Epith Cells 1 Random Vancomycin Blood Type Antibody Screen BBK History Checked 09/21/18 09/21/18 05:22 07:40 WBC RBC Hgb Hct MCV MCH MCHC RDW Plt Count MPV Neut % (Auto) Lymph % (Auto) Garfield % (Auto) Eos % (Auto) Baso % (Auto) Neut # (Auto) Lymph # (Auto) Garfield # (Auto) Eos # (Auto) Baso # (Auto) Neutrophils % (Manual) Band Neutrophils % Lymphocytes % (Manual) Reactive Lymphs % Monocytes % (Manual) Metamyelocytes % Toxic Granulation Platelet Estimate Plt Clumps, EDTA Large Platelets Hypochromasia (manual) Anisocytosis (manual) Ovalocytes ESR PT INR APTT Sodium Potassium Chloride Carbon Dioxide Anion Gap BUN Creatinine Est GFR ( Amer) Est GFR (Non-Af Amer) POC Glucose (mg/dL) 116 H Random Glucose Calcium Total Bilirubin AST ALT Alkaline Phosphatase C-Reactive Protein Total Protein Albumin Globulin Albumin/Globulin Ratio Urine Color Urine Clarity Urine pH Ur Specific [place] Urine Protein Urine Glucose (UA) Urine Ketones Urine Blood Urine Nitrate Urine Bilirubin Urine Urobilinogen Ur Leukocyte Esterase Urine RBC (Auto) Urine Microscopic WBC Ur Squamous Epith Cells Random Vancomycin 8.9 Blood Type Antibody Screen BBK History Checked Laboratory Results - last 72 hr 09/20/18 09/20/18 09/20/18 18:14 18:30 18:30 WBC 9.2 RBC 3.46 L Hgb 9.8 L Hct 30.0 L MCV 86.7 MCH 28.2 MCHC 32.6 L RDW 13.8 Plt Count 414 H MPV 8.5 Neut % (Auto) 57.7 Lymph % (Auto) 24.7 Garfield % (Auto) 15.0 H Eos % (Auto) 1.9 Baso % (Auto) 0.7 Neut # (Auto) 5.3 Lymph # (Auto) 2.3 Garfield # (Auto) 1.4 H Eos # (Auto) 0.2 Baso # (Auto) 0.1 Neutrophils % (Manual) Band Neutrophils % Lymphocytes % (Manual) Reactive Lymphs % Monocytes % (Manual) Metamyelocytes % Toxic Granulation Platelet Estimate Plt Clumps, EDTA Large Platelets Hypochromasia (manual) Anisocytosis (manual) Ovalocytes ESR 99 H PT 12.6 INR 1.1 APTT 35.9 Sodium Potassium Chloride Carbon Dioxide Anion Gap BUN Creatinine Est GFR ( Amer) Est GFR (Non-Af Amer) POC Glucose (mg/dL) 132 H Random Glucose Calcium Total Bilirubin AST ALT Alkaline Phosphatase C-Reactive Protein Total Protein Albumin Globulin Albumin/Globulin Ratio Urine Color Urine Clarity Urine pH Ur Specific [place] Urine Protein Urine Glucose (UA) Urine Ketones Urine Blood Urine Nitrate Urine Bilirubin Urine Urobilinogen Ur Leukocyte Esterase Urine RBC (Auto) Urine Microscopic WBC Ur Squamous Epith Cells Random Vancomycin Blood Type Antibody Screen BBK History Checked 09/20/18 09/20/18 09/20/18 18:30 18:30 22:11 WBC RBC Hgb Hct MCV MCH MCHC RDW Plt Count MPV Neut % (Auto) Lymph % (Auto) Garfield % (Auto) Eos % (Auto) Baso % (Auto) Neut # (Auto) Lymph # (Auto) Garfield # (Auto) Eos # (Auto) Baso # (Auto) Neutrophils % (Manual) Band Neutrophils % Lymphocytes % (Manual) Reactive Lymphs % Monocytes % (Manual) Metamyelocytes % Toxic Granulation Platelet Estimate Plt Clumps, EDTA Large Platelets Hypochromasia (manual) Anisocytosis (manual) Ovalocytes ESR PT INR APTT Sodium 141 Potassium 4.7 Chloride 102 Carbon Dioxide 27 Anion Gap 17 BUN 24 H Creatinine 1.2 Est GFR ( Amer) 53 Est GFR (Non-Af Amer) 43 POC Glucose (mg/dL) 139 H Random Glucose 127 H Calcium 10.3 H Total Bilirubin 0.1 L AST 32 ALT 24 Alkaline Phosphatase 102 C-Reactive Protein 18.30 H Total Protein 8.7 H Albumin 4.5 Globulin 4.2 H Albumin/Globulin Ratio 1.1 Urine Color Urine Clarity Urine pH Ur Specific [place] Urine Protein Urine Glucose (UA) Urine Ketones Urine Blood Urine Nitrate Urine Bilirubin Urine Urobilinogen Ur Leukocyte Esterase Urine RBC (Auto) Urine Microscopic WBC Ur Squamous Epith Cells Random Vancomycin Blood Type A POSITIVE Antibody Screen Negative BBK History Checked Patient has bt 09/20/18 09/21/18 09/21/18 22:40 05:20 05:20 WBC 7.2 RBC 3.06 L Hgb 8.7 L Hct 26.5 L MCV 86.6 MCH 28.4 MCHC 32.8 L RDW 13.9 Plt Count 339 MPV 8.3 Neut % (Auto) 47.4 L Lymph % (Auto) 27.5 Garfield % (Auto) 21.7 H Eos % (Auto) 2.6 Baso % (Auto) 0.8 Neut # (Auto) 3.4 Lymph # (Auto) 2.0 Garfield # (Auto) 1.6 H Eos # (Auto) 0.2 Baso # (Auto) 0.1 Neutrophils % (Manual) 57 Band Neutrophils % 1 Lymphocytes % (Manual) 25 Reactive Lymphs % 2 H Monocytes % (Manual) 14 H Metamyelocytes % 1 H Toxic Granulation Present Platelet Estimate Normal Plt Clumps, EDTA Present Large Platelets Present Hypochromasia (manual) Slight Anisocytosis (manual) Slight Ovalocytes Slight ESR PT INR APTT Sodium 137 Potassium 4.2 Chloride 103 Carbon Dioxide 26 Anion Gap 12 BUN 21 H Creatinine 1.3 H Est GFR ( Amer) 48 Est GFR (Non-Af Amer) 40 POC Glucose (mg/dL) Random Glucose 104 Calcium 9.3 Total Bilirubin AST ALT Alkaline Phosphatase C-Reactive Protein Total Protein Albumin Globulin Albumin/Globulin Ratio Urine Color Yellow Urine Clarity Slighty-cloudy Urine pH 6.0 Ur Specific [place] 1.011 Urine Protein Negative Urine Glucose (UA) Neg Urine Ketones Negative Urine Blood Negative Urine Nitrate Negative Urine Bilirubin Negative Urine Urobilinogen 0.2-1.0 Ur Leukocyte Esterase Neg Urine RBC (Auto) < 1 Urine Microscopic WBC 2 Ur Squamous Epith Cells 1 Random Vancomycin Blood Type Antibody Screen BBK History Checked 09/21/18 09/21/18 09/21/18 05:22 07:40 10:34 WBC RBC Hgb Hct MCV MCH MCHC RDW Plt Count MPV Neut % (Auto) Lymph % (Auto) Garfield % (Auto) Eos % (Auto) Baso % (Auto) Neut # (Auto) Lymph # (Auto) Garfield # (Auto) Eos # (Auto) Baso # (Auto) Neutrophils % (Manual) Band Neutrophils % Lymphocytes % (Manual) Reactive Lymphs % Monocytes % (Manual) Metamyelocytes % Toxic Granulation Platelet Estimate Plt Clumps, EDTA Large Platelets Hypochromasia (manual) Anisocytosis (manual) Ovalocytes ESR PT INR APTT Sodium Potassium Chloride Carbon Dioxide Anion Gap BUN Creatinine Est GFR ( Amer) Est GFR (Non-Af Amer) POC Glucose (mg/dL) 116 H 199 H Random Glucose Calcium Total Bilirubin AST ALT Alkaline Phosphatase C-Reactive Protein Total Protein Albumin Globulin Albumin/Globulin Ratio Urine Color Urine Clarity Urine pH Ur Specific [place] Urine Protein Urine Glucose (UA) Urine Ketones Urine Blood Urine Nitrate Urine Bilirubin Urine Urobilinogen Ur Leukocyte Esterase Urine RBC (Auto) Urine Microscopic WBC Ur Squamous Epith Cells Random Vancomycin 8.9 Blood Type Antibody Screen BBK History Checked Accession No. : [id number] Patient Name / ID : MILI FERRER / [id number] Exam Date : 09/20/2018 16:59:47 ( Approved ) Study Comment : Sex / Age : F / [id number] Creator : Dictator : Tyree Carlisle MD Retail Seasonal Specialist : Leather Tacker : Tyree Carlisle MD Approver2 : Report Date : My Comment : Date of service: 09/20/2018 PROCEDURE: Right Foot Radiographs. HISTORY: 1st digit cellulitis COMPARISON: None. FINDINGS: BONES: No evidence of osteomyelitis. JOINTS: Multiple hammertoe deformities noted. SOFT TISSUES: Soft tissue swelling primarily affecting the 1st digit. OTHER FINDINGS: None. IMPRESSION: Soft tissue swelling without acute articular or osseous abnormality. Assessment & Plan (1) PVD (peripheral vascular disease) Status: Acute Priority: High (2) Diabetic neuropathy Status: Acute (3) Arterial occlusion, lower extremity Status: Acute Priority: High (4) Foot ulcer, right Status: Acute (5) Cellulitis and abscess of toe of right foot Status: Acute - Assessment and Plan (Free Text) Assessment: A/P- 78 year old female with DM II, HTN, PVD s/p multiple right leg atherectomy and angioplasty admitted with right great toe ulcer/cellulitis. afebrile normal wbc count high ESR foot xray report- soft tissue swelling no osseous involvement as per report. Plan- await wound cx result. check blood cx x 2. advise to check MRI r/o OM. agree with current antibiotics vanco and zosyn pending further results day #1 keep vanco trough between 10-15. wound care as per podiatry. all labs and pertinent imaging and notes reviewed. All above d/w patient and her daughter and they verbalize full understanding of all above and agree with above plan of care. Thank you for allowing me to take part in the care of this patient.
[2018-09-21] MEDS ORDERED: Influenza Vaccine (5 YR UP)/PF 60 MCG/0.5 ML SYR IM ONE (12:56)
[2018-09-21] MEDS ORDERED: Pneumococcal 23-Valent Vaccine IM ONE (12:57)
--- NOTE | 2018-09-21 17:19 | US ---
Date of service: 09/21/2018 PROCEDURE: Bilateral lower extremity venous duplex Doppler. HISTORY: Infected right hallux ulcer COMPARISON: None available. TECHNIQUE: Bilateral common femoral, superficial femoral, popliteal and posterior tibial veins were evaluated. Flow was assessed with color Doppler, compressibility, assessment of phasic flow and augmentation response. FINDINGS: COMMON FEMORAL VEIN: Right CFV: Unremarkable. Left CFV: Unremarkable. SUPERFICIAL FEMORAL VEIN: Right SFV: Unremarkable. Left SFV: Unremarkable. POPLITEAL VEIN: Right Popliteal: Unremarkable. Left Popliteal: Unremarkable. POSTERIOR TIBIAL VEIN: Right PTV: Unremarkable. Left PTV: Unremarkable. OTHER FINDINGS: None. IMPRESSION: No evidence of deep venous thrombosis.
[2018-09-21] MEDS: Enoxaparin 80 mg Syringe SC SCH (21:55)
[2018-09-22] MEDS: Piperacillin/Tazobact 3.375 GM in Sodium Chloride 0.9% 100 ML IVPB SCH ×3 (01:06→18:00)
[2018-09-22] MEDS: Insulin Lispro (humaLOG) 100 Units/ml Inj SC SCH ×4 (08:04→22:30)
[2018-09-22 08:45] LABS: HEMOGLOBIN 9.3 g/dL (12.0-16.0); MEAN CELL VOLUME 86.7 fl (81.0-99.0); MEAN CORPUSCULAR HEMOGLOBIN 28.5 pg (27.0-31.0); MEAN CORPUSCULAR HGB CONC 32.9 g/dL (33.0-37.0); RBC 3.26 Mil/uL (3.80-5.20); RED CELL DISTRIBUTION WIDTH 14.2 % (11.5-14.5); WHITE BLOOD COUNT 11.3 K/uL (4.8-10.8)
[2018-09-22 08:48] LABS: CALCIUM 9.4 mg/dL (8.4-10.2)
[2018-09-22] MEDS: Oxycodone/Acetaminophen 5/325 mg Tab PO PRN (09:58)
[2018-09-22] MEDS: Pantoprazole 40 mg EC Tab PO SCH (10:02)
--- NOTE | 2018-09-22 11:35 | CP.PCM.PN ---
<Jenaro Luis - Last Filed: 09/22/18 11:36> Subjective - Date & Time of Evaluation Date of Evaluation: 09/22/18 Time of Evaluation: 08:40 - Subjective Subjective: Patient seen at bedside today. C/o persistent mild to moderate pain in LE but not particularly to the wound area. Had fever around midnight. Tolerating PO. No acute changes in urination or stools. Wound Cx growing gram - rods. MRI of the foot done Yesterday. Objective - Vital Signs/Intake and Output Vital Signs (last 24 hours): Temp Pulse Resp BP Pulse Ox 98.5 F 83 20 103/66 98 09/22/18 09:08 09/22/18 10:03 09/22/18 09:08 09/22/18 10:03 09/22/18 09:08 - Medications Medications: Current Medications Acetaminophen (Tylenol 325mg Tab) 650 mg PO Q4 PRN PRN Reason: Fever >100.4 F Last Admin: 09/22/18 01:06 Dose: 650 mg Albuterol/Ipratropium (Duoneb 3 Mg/0.5 Mg (3 Ml) Ud) 3 ml INH RQ4 PRN PRN Reason: Shortness of Breath Amlodipine Besylate (Norvasc) 10 mg PO DAILY [facility] Last Admin: 09/22/18 10:03 Dose: 10 mg Atorvastatin Calcium (Lipitor) 40 mg PO DAILY [facility] Last Admin: 09/22/18 10:06 Dose: 40 mg Benzonatate (Tessalon Perles) 100 mg PO Q8 PRN PRN Reason: Cough Last Admin: 09/22/18 10:02 Dose: 100 mg Cyclobenzaprine HCl (Flexeril) 5 mg PO TID [facility] Last Admin: 09/22/18 10:04 Dose: 5 mg Dextrose (Dextrose 50% Inj) 0 ml IV STAT PRN; Protocol PRN Reason: Hypoglycemia Protocol Dextrose (Glutose 15) 0 gm PO ONCE PRN; Protocol PRN Reason: Hypoglycemia Protocol Docusate Sodium (Colace) 100 mg PO BID [facility] Last Admin: 09/22/18 10:03 Dose: 100 mg Enoxaparin Sodium (Lovenox) 70 mg SC HS [facility]; Protocol Last Admin: 09/21/18 21:55 Dose: 70 mg Ergocalciferol (Drisdol 50,000 Intl Units Cap) 1 cap PO QWK [facility] Last Admin: 09/21/18 09:01 Dose: 1 cap Glucagon (Glucagen Diagnostic Kit) 0 mg IM STAT PRN; Protocol PRN Reason: Hypoglycemia Protocol Vancomycin HCl 1 gm/ Sodium (Chloride) 250 mls @ 166.667 mls/hr IVPB DAILY [facility]; Protocol Last Admin: 09/22/18 10:11 Dose: 166.667 mls/hr Piperacillin Sod/Tazobactam (Sod 3.375 gm/ Sodium Chloride) 100 mls @ 100 mls/hr IVPB Q8H [facility]; Protocol Last Admin: 09/22/18 10:10 Dose: 100 mls/hr Insulin Detemir (Levemir) 15 units SC HS [facility] Insulin Human Lispro (Humalog) 0 units SC ACCU-CHECK [facility]; Protocol Last Admin: 09/22/18 08:04 Dose: 2 unit Mirtazapine (Remeron) 15 mg PO HS [facility] Last Admin: 09/21/18 23:17 Dose: 15 mg Montelukast Sodium (Singulair) 10 mg PO DAILY [facility] Last Admin: 09/22/18 10:03 Dose: 10 mg Ondansetron HCl (Zofran Odt) 4 mg PO Q8H PRN PRN Reason: Nausea/Vomiting Oxycodone/Acetaminophen (Percocet 5/325 Mg Tab) 1 tab PO Q4 PRN PRN Reason: Pain, severe (8-10) Stop: 09/23/18 18:18 Last Admin: 09/22/18 09:58 Dose: 1 tab Pantoprazole Sodium (Protonix Ec Tab) 40 mg PO DAILY [facility] Last Admin: 09/22/18 10:02 Dose: 40 mg Pregabalin (Lyrica) 50 mg PO TID [facility] Last Admin: 09/22/18 10:01 Dose: 50 mg Pregabalin (Lyrica) 50 mg PO HS [facility] - Labs Labs: 09/22/18 06:30 09/22/18 06:30 PT 12.6 Seconds (9.8-13.1) 09/20/18 18:30 INR 1.1 09/20/18 18:30 APTT 35.9 Seconds (25.6-37.1) 09/20/18 18:30 - Constitutional Appears: Non-toxic, Chronically Ill - Eye Exam Eye Exam: EOMI, PERRL - ENT Exam ENT Exam: Mucous Membranes Moist - Respiratory Exam Respiratory Exam: NORMAL BREATHING PATTERN. absent: Respiratory Distress - Cardiovascular Exam Cardiovascular Exam: +S1, +S2. absent: Gallop - GI/Abdominal Exam GI & Abdominal Exam: Soft, Normal Bowel Sounds. absent: Guarding, Tenderness, Rebound - Extremities Exam Extremities Exam: Normal Capillary Refill. absent: Calf Tenderness, Normal Inspection Additional comments: Dressing noted to be clean, dry and intact. - Neurological Exam Neurological Exam: Alert, Awake, Oriented x3 - Skin Skin Exam: Warm Assessment and Plan - Assessment and Plan (Free Text) Assessment: 78 years old female brought to the ED because of worsening pain to the right lower extremity with cold right foot. 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 TMax 101.3. 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 - R foot x ray: soft tissue swelling w/o articular or bone abnormalities. - LE duplex: Inflow disease resulting in high common femoral artery flow. Atherosclerotic disease and areas of narrowing/stenosis noted in the right SFA and common femoral artery. Flow is identified popliteal artery, posterior tibial artery and dorsalis pedis vessel. - Vascular consult Dr Zavala, recs appreciated - Podiatry consult, recs appreciated. - ID consult, recs appreciated - Lovenox therapeutic dose, renal adjusted. Brellinta stopped for now in case patient needs Sx procedure for toe. Dr Zavala agreed. - Pain management. Restart Lyrica - f/u foot MRI - C/w IV vancomycin and zosyn CKD III - chronic, stable - Meds adjusted IDDM - Chronic - Stable - HbA1c 7.8 on 05/21/18 - Lispro Insulin sliding scale according to sliding scale - Restart Levemir half home dose HS today(15 mg) - Monitor HTN Chronic Controlled C/w Norvasc for now Monitor COPD Chronic Stable C/W PRN Duonebs and O2 Anemia - Chronic - Likely chronic disease anemia - Stable - Monitor DVT prophylaxis: - On Lovenox therapeutic, renal dose <Aguillon,Vijay D - Last Filed: 09/22/18 15:43> Objective - Vital Signs/Intake and Output Vital Signs (last 24 hours): Temp Pulse Resp BP Pulse Ox 98.5 F 83 20 103/66 98 09/22/18 09:08 09/22/18 10:03 09/22/18 09:08 09/22/18 10:03 09/22/18 09:08 - Medications Medications: Current Medications Acetaminophen (Tylenol 325mg Tab) 650 mg PO Q4 PRN PRN Reason: Fever >100.4 F Last Admin: 09/22/18 01:06 Dose: 650 mg Albuterol/Ipratropium (Duoneb 3 Mg/0.5 Mg (3 Ml) Ud) 3 ml INH RQ4 PRN PRN Reason: Shortness of Breath Amlodipine Besylate (Norvasc) 10 mg PO DAILY [facility] Last Admin: 09/22/18 10:03 Dose: 10 mg Atorvastatin Calcium (Lipitor) 40 mg PO DAILY [facility] Last Admin: 09/22/18 10:06 Dose: 40 mg Benzonatate (Tessalon Perles) 100 mg PO Q8 PRN PRN Reason: Cough Last Admin: 09/22/18 10:02 Dose: 100 mg Cyclobenzaprine HCl (Flexeril) 5 mg PO TID [facility] Last Admin: 09/22/18 14:04 Dose: 5 mg Dextrose (Dextrose 50% Inj) 0 ml IV STAT PRN; Protocol PRN Reason: Hypoglycemia Protocol Dextrose (Glutose 15) 0 gm PO ONCE PRN; Protocol PRN Reason: Hypoglycemia Protocol Docusate Sodium (Colace) 100 mg PO BID [facility] Last Admin: 09/22/18 10:03 Dose: 100 mg Enoxaparin Sodium (Lovenox) 70 mg SC HS [facility]; Protocol Last Admin: 09/21/18 21:55 Dose: 70 mg Ergocalciferol (Drisdol 50,000 Intl Units Cap) 1 cap PO QWK [facility] Last Admin: 09/21/18 09:01 Dose: 1 cap Glucagon (Glucagen Diagnostic Kit) 0 mg IM STAT PRN; Protocol PRN Reason: Hypoglycemia Protocol Vancomycin HCl 1 gm/ Sodium (Chloride) 250 mls @ 166.667 mls/hr IVPB DAILY [facility]; Protocol Last Admin: 09/22/18 10:11 Dose: 166.667 mls/hr Piperacillin Sod/Tazobactam (Sod 3.375 gm/ Sodium Chloride) 100 mls @ 100 mls/hr IVPB Q8H [facility]; Protocol Last Admin: 09/22/18 10:10 Dose: 100 mls/hr Insulin Detemir (Levemir) 15 units SC HS [facility] Insulin Human Lispro (Humalog) 0 units SC ACCU-CHECK [facility]; Protocol Last Admin: 09/22/18 12:01 Dose: 3 unit Mirtazapine (Remeron) 15 mg PO HS [facility] Last Admin: 09/21/18 23:17 Dose: 15 mg Montelukast Sodium (Singulair) 10 mg PO DAILY [facility] Last Admin: 09/22/18 10:03 Dose: 10 mg Ondansetron HCl (Zofran Odt) 4 mg PO Q8H PRN PRN Reason: Nausea/Vomiting Oxycodone/Acetaminophen (Percocet 5/325 Mg Tab) 1 tab PO Q4 PRN PRN Reason: Pain, severe (8-10) Stop: 09/23/18 18:18 Last Admin: 09/22/18 09:58 Dose: 1 tab Pantoprazole Sodium (Protonix Ec Tab) 40 mg PO DAILY [facility] Last Admin: 09/22/18 10:02 Dose: 40 mg Pregabalin (Lyrica) 50 mg PO TID [facility] Last Admin: 09/22/18 14:04 Dose: 50 mg Pregabalin (Lyrica) [address] [facility] - Labs Labs: 09/22/18 06:30 09/22/18 06:30 PT 12.6 Seconds (9.8-13.1) 09/20/18 18:30 INR 1.1 09/20/18 18:30 APTT 35.9 Seconds (25.6-37.1) 09/20/18 18:30 Attending/Attestation - Attestation I have personally seen and examined this patient.: Yes I have fully participated in the care of the patient.: Yes I have reviewed all pertinent clinical information, including history, physical exam and plan: Yes Notes (Text): 09/22/18 15:42 Patient seen and examined with resident. Case discussed and agreed with assessment and plan
--- NOTE | 2018-09-22 13:22 | CP.PCM.PN ---
Subjective - Date & Time of Evaluation Date of Evaluation: 09/22/18 Time of Evaluation: 14:49 - Subjective Subjective: Podiatry consult note for attending Dr Marks: 78 y/o female patient seen and evaluated in the bedside for R hallux infected ulcer and cellulitis. Patient reports she had a fever overnight, and complains of chills at this time. Patient states that she has mild pain in her ulcer site at the R big toe. She denies any other acute pedal complaints at this time. Objective - Vital Signs/Intake and Output Vital Signs (last 24 hours): Temp Pulse Resp BP Pulse Ox 98.5 F 83 20 103/66 98 09/22/18 09:08 09/22/18 10:03 09/22/18 09:08 09/22/18 10:03 09/22/18 09:08 - Medications Medications: Current Medications Acetaminophen (Tylenol 325mg Tab) 650 mg PO Q4 PRN PRN Reason: Fever >100.4 F Last Admin: 09/22/18 01:06 Dose: 650 mg Albuterol/Ipratropium (Duoneb 3 Mg/0.5 Mg (3 Ml) Ud) 3 ml INH RQ4 PRN PRN Reason: Shortness of Breath Amlodipine Besylate (Norvasc) 10 mg PO DAILY [facility] Last Admin: 09/22/18 10:03 Dose: 10 mg Atorvastatin Calcium (Lipitor) 40 mg PO DAILY [facility] Last Admin: 09/22/18 10:06 Dose: 40 mg Benzonatate (Tessalon Perles) 100 mg PO Q8 PRN PRN Reason: Cough Last Admin: 09/22/18 10:02 Dose: 100 mg Cyclobenzaprine HCl (Flexeril) 5 mg PO TID [facility] Last Admin: 09/22/18 10:04 Dose: 5 mg Dextrose (Dextrose 50% Inj) 0 ml IV STAT PRN; Protocol PRN Reason: Hypoglycemia Protocol Dextrose (Glutose 15) 0 gm PO ONCE PRN; Protocol PRN Reason: Hypoglycemia Protocol Docusate Sodium (Colace) 100 mg PO BID [facility] Last Admin: 09/22/18 10:03 Dose: 100 mg Enoxaparin Sodium (Lovenox) 70 mg SC HS [facility]; Protocol Last Admin: 09/21/18 21:55 Dose: 70 mg Ergocalciferol (Drisdol 50,000 Intl Units Cap) 1 cap PO QWK [facility] Last Admin: 09/21/18 09:01 Dose: 1 cap Glucagon (Glucagen Diagnostic Kit) 0 mg IM STAT PRN; Protocol PRN Reason: Hypoglycemia Protocol Vancomycin HCl 1 gm/ Sodium (Chloride) 250 mls @ 166.667 mls/hr IVPB DAILY [facility]; Protocol Last Admin: 09/22/18 10:11 Dose: 166.667 mls/hr Piperacillin Sod/Tazobactam (Sod 3.375 gm/ Sodium Chloride) 100 mls @ 100 mls/hr IVPB Q8H [facility]; Protocol Last Admin: 09/22/18 10:10 Dose: 100 mls/hr Insulin Detemir (Levemir) 15 units SC HS [facility] Insulin Human Lispro (Humalog) 0 units SC ACCU-CHECK [facility]; Protocol Last Admin: 09/22/18 08:04 Dose: 2 unit Mirtazapine (Remeron) 15 mg PO HS [facility] Last Admin: 09/21/18 23:17 Dose: 15 mg Montelukast Sodium (Singulair) 10 mg PO DAILY [facility] Last Admin: 09/22/18 10:03 Dose: 10 mg Ondansetron HCl (Zofran Odt) 4 mg PO Q8H PRN PRN Reason: Nausea/Vomiting Oxycodone/Acetaminophen (Percocet 5/325 Mg Tab) 1 tab PO Q4 PRN PRN Reason: Pain, severe (8-10) Stop: 09/23/18 18:18 Last Admin: 09/22/18 09:58 Dose: 1 tab Pantoprazole Sodium (Protonix Ec Tab) 40 mg PO DAILY [facility] Last Admin: 09/22/18 10:02 Dose: 40 mg Pregabalin (Lyrica) 50 mg PO TID [facility] Last Admin: 09/22/18 10:01 Dose: 50 mg Pregabalin (Lyrica) 50 mg PO HS [facility] - Labs Labs: 09/22/18 06:30 09/22/18 06:30 PT 12.6 Seconds (9.8-13.1) 09/20/18 18:30 INR 1.1 09/20/18 18:30 APTT 35.9 Seconds (25.6-37.1) 09/20/18 18:30 - Constitutional Appears: Well, Non-toxic, No Acute Distress - Head Exam Head Exam: ATRAUMATIC, NORMOCEPHALIC - Extremities Exam Additional comments: B/l LE focused exam: VASC: R DP pulses very faintly palpable R PT pulse is palpable 1/4, L DP/PT 2/4. Cap refill almost 3 sec to all digits. Temp gradient warm to warmer on the R side and warm to cool on the left side from proximal to distal. Non pitting edema noted on the right foot up to the ankle. Erythema extending from the R hallux to the R 1st MPJ. Small superficial varicosities noted to the L foot and ankle NEURO: Gross and Protective sensation are grossly diminished. DERM: an ulcer measuring 1.2X1.2X0.3cm noted in the nail bed of the R hallux. Positive purulent discharge, positive probe to bone, No malodor, No tracking or undermining. Base is granular: fibrotic 50:50 with black eschar covering the tip of the toe. Erythema extending from the R hallux to the R 1st MPJ. Positive clinical signs of active infection. MSK: Mild pain to palpation of the R hallux. Muscle power intact 5/5 to all groups. - Neurological Exam Neurological Exam: Alert, Awake, Oriented x3 - Psychiatric Exam Psychiatric exam: Normal Affect, Normal Mood Assessment and Plan - Assessment and Plan (Free Text) Assessment: 78 y/o female patient seen and evaluated in the bedside for R hallux infected ulcer and cellulitis. Plan: Patient seen and evaluated in bedside Discussed with attending Dr. Marks Labs and vitals reviewed- febrile, WBCs 11.3 (09/22) Wound Cx: Gram Negative Rods R foot X-ray: Soft tissue swelling without acute articular or osseous anomalies. R foot MRI: mild inflammation at site of ulceration, despite motion artifact, no definite evidece of osteomyelitis is appreciated, mild thinning of skin RLE arterial duplex: Inflow disease with high common femoral artery flow, R common femoral artery and SFA have atherosclerotic disease with areas of narrowing and stenosis. Flow is identified in the popliteal, posterior tibial and DP arteries. ESR: 92 (09/21/18) CRP: 18.30 Wound dressed with SSD and DSD Patient is on Vanco/Zosyn ID consulted: recommendations appreciated Vascular sx consulted: pending recommendations, all recommendations appreciated Podiatry surgical plan pending vascular recommendations Patient to ambulate in the surgical shoe all the times Podiatry will continue to follow up the patient while in house
--- NOTE | 2018-09-22 13:41 | CP.PCM.PN ---
Subjective - Date & Time of Evaluation Date of Evaluation: 09/22/18 Time of Evaluation: 13:41 - Subjective Subjective: ID Note- Pt. seen and examined today. pt. had low grade fever today and as per her daughter she thinks it might be to the pneumonia and flu vaccination she received yesterday. pt. denies any BYRD, denies any cough or sob, denies any dysurea. denies any diarrhea. Objective - Vital Signs/Intake and Output Vital Signs (last 24 hours): Temp Pulse Resp BP Pulse Ox 98.5 F 83 20 103/66 98 09/22/18 09:08 09/22/18 10:03 09/22/18 09:08 09/22/18 10:03 09/22/18 09:08 - Medications Medications: Current Medications Acetaminophen (Tylenol 325mg Tab) 650 mg PO Q4 PRN PRN Reason: Fever >100.4 F Last Admin: 09/22/18 01:06 Dose: 650 mg Albuterol/Ipratropium (Duoneb 3 Mg/0.5 Mg (3 Ml) Ud) 3 ml INH RQ4 PRN PRN Reason: Shortness of Breath Amlodipine Besylate (Norvasc) 10 mg PO DAILY [facility] Last Admin: 09/22/18 10:03 Dose: 10 mg Atorvastatin Calcium (Lipitor) 40 mg PO DAILY [facility] Last Admin: 09/22/18 10:06 Dose: 40 mg Benzonatate (Tessalon Perles) 100 mg PO Q8 PRN PRN Reason: Cough Last Admin: 09/22/18 10:02 Dose: 100 mg Cyclobenzaprine HCl (Flexeril) 5 mg PO TID [facility] Last Admin: 09/22/18 10:04 Dose: 5 mg Dextrose (Dextrose 50% Inj) 0 ml IV STAT PRN; Protocol PRN Reason: Hypoglycemia Protocol Dextrose (Glutose 15) 0 gm PO ONCE PRN; Protocol PRN Reason: Hypoglycemia Protocol Docusate Sodium (Colace) 100 mg PO BID [facility] Last Admin: 09/22/18 10:03 Dose: 100 mg Enoxaparin Sodium (Lovenox) 70 mg SC HS [facility]; Protocol Last Admin: 09/21/18 21:55 Dose: 70 mg Ergocalciferol (Drisdol 50,000 Intl Units Cap) 1 cap PO QWK [facility] Last Admin: 09/21/18 09:01 Dose: 1 cap Glucagon (Glucagen Diagnostic Kit) 0 mg IM STAT PRN; Protocol PRN Reason: Hypoglycemia Protocol Vancomycin HCl 1 gm/ Sodium (Chloride) 250 mls @ 166.667 mls/hr IVPB DAILY [facility]; Protocol Last Admin: 09/22/18 10:11 Dose: 166.667 mls/hr Piperacillin Sod/Tazobactam (Sod 3.375 gm/ Sodium Chloride) 100 mls @ 100 mls/hr IVPB Q8H [facility]; Protocol Last Admin: 09/22/18 10:10 Dose: 100 mls/hr Insulin Detemir (Levemir) 15 units SC HS [facility] Insulin Human Lispro (Humalog) 0 units SC ACCU-CHECK [facility]; Protocol Last Admin: 09/22/18 08:04 Dose: 2 unit Mirtazapine (Remeron) 15 mg PO HS [facility] Last Admin: 09/21/18 23:17 Dose: 15 mg Montelukast Sodium (Singulair) 10 mg PO DAILY [facility] Last Admin: 09/22/18 10:03 Dose: 10 mg Ondansetron HCl (Zofran Odt) 4 mg PO Q8H PRN PRN Reason: Nausea/Vomiting Oxycodone/Acetaminophen (Percocet 5/325 Mg Tab) 1 tab PO Q4 PRN PRN Reason: Pain, severe (8-10) Stop: 09/23/18 18:18 Last Admin: 09/22/18 09:58 Dose: 1 tab Pantoprazole Sodium (Protonix Ec Tab) 40 mg PO DAILY [facility] Last Admin: 09/22/18 10:02 Dose: 40 mg Pregabalin (Lyrica) 50 mg PO TID [facility] Last Admin: 09/22/18 10:01 Dose: 50 mg Pregabalin (Lyrica) 50 mg PO HS [facility] - Labs Labs: - Additional Findings Additional findings: Constitutional Appears: No Acute Distress - Head Exam Head Exam: ATRAUMATIC - Eye Exam Eye Exam: EOMI - ENT Exam ENT Exam: Normal Oropharynx - Neck Exam Neck exam: Positive for: Full Rom - Respiratory Exam Respiratory Exam: Clear to Auscultation Bilateral, NORMAL BREATHING PATTERN - Cardiovascular Exam Cardiovascular Exam: RRR, +S1, +S2 - GI/Abdominal Exam GI & Abdominal Exam: Normal Bowel Sounds, Soft Additional comments: NT, ND - Extremities Exam Additional comments: right great toe anterior region nail bed with debrided nail bed and slight yellow discharge, no malodor, surrounding erythema and edema, + tender to touch erythema localized to the toe region only - Neurological Exam Neurological exam: AAo x 3 Laboratory Results - last 72 hr 09/20/18 09/20/18 09/20/18 18:14 18:30 18:30 WBC 9.2 RBC 3.46 L Hgb 9.8 L Hct 30.0 L MCV 86.7 MCH 28.2 MCHC 32.6 L RDW 13.8 Plt Count 414 H MPV 8.5 Neut % (Auto) 57.7 Lymph % (Auto) 24.7 Polk % (Auto) 15.0 H Eos % (Auto) 1.9 Baso % (Auto) 0.7 Neut # (Auto) 5.3 Lymph # (Auto) 2.3 Polk # (Auto) 1.4 H Eos # (Auto) 0.2 Baso # (Auto) 0.1 Neutrophils % (Manual) Band Neutrophils % Lymphocytes % (Manual) Reactive Lymphs % Monocytes % (Manual) Metamyelocytes % Toxic Granulation Platelet Estimate Plt Clumps, EDTA Large Platelets Hypochromasia (manual) Anisocytosis (manual) Ovalocytes ESR 99 H PT 12.6 INR 1.1 APTT 35.9 Sodium Potassium Chloride Carbon Dioxide Anion Gap BUN Creatinine Est GFR ( Amer) Est GFR (Non-Af Amer) POC Glucose (mg/dL) 132 H Random Glucose Calcium Total Bilirubin AST ALT Alkaline Phosphatase C-Reactive Protein Total Protein Albumin Globulin Albumin/Globulin Ratio Urine Color Urine Clarity Urine pH Ur Specific [place] Urine Protein Urine Glucose (UA) Urine Ketones Urine Blood Urine Nitrate Urine Bilirubin Urine Urobilinogen Ur Leukocyte Esterase Urine RBC (Auto) Urine Microscopic WBC Ur Squamous Epith Cells Vancomycin Trough Random Vancomycin Blood Type Antibody Screen BBK History Checked 09/20/18 09/20/18 09/20/18 18:30 18:30 22:11 WBC RBC Hgb Hct MCV MCH MCHC RDW Plt Count MPV Neut % (Auto) Lymph % (Auto) Polk % (Auto) Eos % (Auto) Baso % (Auto) Neut # (Auto) Lymph # (Auto) [place] # (Auto) Eos # (Auto) Baso # (Auto) Neutrophils % (Manual) Band Neutrophils % Lymphocytes % (Manual) Reactive Lymphs % Monocytes % (Manual) Metamyelocytes % Toxic Granulation Platelet Estimate Plt Clumps, EDTA Large Platelets Hypochromasia (manual) Anisocytosis (manual) Ovalocytes ESR PT INR APTT Sodium 141 Potassium 4.7 Chloride 102 Carbon Dioxide 27 Anion Gap 17 BUN 24 H Creatinine 1.2 Est GFR ( Amer) 53 Est GFR (Non-Af Amer) 43 POC Glucose (mg/dL) 139 H Random Glucose 127 H Calcium 10.3 H Total Bilirubin 0.1 L AST 32 ALT 24 Alkaline Phosphatase 102 C-Reactive Protein 18.30 H Total Protein 8.7 H Albumin 4.5 Globulin 4.2 H Albumin/Globulin Ratio 1.1 Urine Color Urine Clarity Urine pH Ur Specific [place] Urine Protein Urine Glucose (UA) Urine Ketones Urine Blood Urine Nitrate Urine Bilirubin Urine Urobilinogen Ur Leukocyte Esterase Urine RBC (Auto) Urine Microscopic WBC Ur Squamous Epith Cells Vancomycin Trough Random Vancomycin Blood Type A POSITIVE Antibody Screen Negative BBK History Checked Patient has bt 09/20/18 09/21/18 09/21/18 22:40 05:20 05:20 WBC 7.2 RBC 3.06 L Hgb 8.7 L Hct 26.5 L MCV 86.6 MCH 28.4 MCHC 32.8 L RDW 13.9 Plt Count 339 MPV 8.3 Neut % (Auto) 47.4 L Lymph % (Auto) 27.5 Polk % (Auto) 21.7 H Eos % (Auto) 2.6 Baso % (Auto) 0.8 Neut # (Auto) 3.4 Lymph # (Auto) 2.0 Polk # (Auto) 1.6 H Eos # (Auto) 0.2 Baso # (Auto) 0.1 Neutrophils % (Manual) 57 Band Neutrophils % 1 Lymphocytes % (Manual) 25 Reactive Lymphs % 2 H Monocytes % (Manual) 14 H Metamyelocytes % 1 H Toxic Granulation Present Platelet Estimate Normal Plt Clumps, EDTA Present Large Platelets Present Hypochromasia (manual) Slight Anisocytosis (manual) Slight Ovalocytes Slight ESR PT INR APTT Sodium 137 Potassium 4.2 Chloride 103 Carbon Dioxide 26 Anion Gap 12 BUN 21 H Creatinine 1.3 H Est GFR ( Amer) 48 Est GFR (Non-Af Amer) 40 POC Glucose (mg/dL) Random Glucose 104 Calcium 9.3 Total Bilirubin AST ALT Alkaline Phosphatase C-Reactive Protein Total Protein Albumin Globulin Albumin/Globulin Ratio Urine Color Yellow Urine Clarity Slighty-cloudy Urine pH 6.0 Ur Specific [place] 1.011 Urine Protein Negative Urine Glucose (UA) Neg Urine Ketones Negative Urine Blood Negative Urine Nitrate Negative Urine Bilirubin Negative Urine Urobilinogen 0.2-1.0 Ur Leukocyte Esterase Neg Urine RBC (Auto) < 1 Urine Microscopic WBC 2 Ur Squamous Epith Cells 1 Vancomycin Trough Random Vancomycin Blood Type Antibody Screen BBK History Checked 09/21/18 09/21/18 09/21/18 05:22 07:40 10:34 WBC RBC Hgb Hct MCV MCH MCHC RDW Plt Count MPV Neut % (Auto) Lymph % (Auto) [place]k % (Auto) Eos % (Auto) Baso % (Auto) Neut # (Auto) Lymph # (Auto) [place] # (Auto) Eos # (Auto) Baso # (Auto) Neutrophils % (Manual) Band Neutrophils % Lymphocytes % (Manual) Reactive Lymphs % Monocytes % (Manual) Metamyelocytes % Toxic Granulation Platelet Estimate Plt Clumps, EDTA Large Platelets Hypochromasia (manual) Anisocytosis (manual) Ovalocytes ESR PT INR APTT Sodium Potassium Chloride Carbon Dioxide Anion Gap BUN Creatinine Est GFR ( Amer) Est GFR (Non-Af Amer) POC Glucose (mg/dL) 116 H 199 H Random Glucose Calcium Total Bilirubin AST ALT Alkaline Phosphatase C-Reactive Protein Total Protein Albumin Globulin Albumin/Globulin Ratio Urine Color Urine Clarity Urine pH Ur Specific [place] Urine Protein Urine Glucose (UA) Urine Ketones Urine Blood Urine Nitrate Urine Bilirubin Urine Urobilinogen Ur Leukocyte Esterase Urine RBC (Auto) Urine Microscopic WBC Ur Squamous Epith Cells Vancomycin Trough Random Vancomycin 8.9 Blood Type Antibody Screen BBK History Checked 09/21/18 09/21/18 09/21/18 15:47 16:40 21:52 WBC RBC Hgb Hct MCV MCH MCHC RDW Plt Count MPV Neut % (Auto) Lymph % (Auto) Polk % (Auto) Eos % (Auto) Baso % (Auto) Neut # (Auto) Lymph # (Auto) [place]k # (Auto) Eos # (Auto) Baso # (Auto) Neutrophils % (Manual) Band Neutrophils % Lymphocytes % (Manual) Reactive Lymphs % Monocytes % (Manual) Metamyelocytes % Toxic Granulation Platelet Estimate Plt Clumps, EDTA Large Platelets Hypochromasia (manual) Anisocytosis (manual) Ovalocytes ESR 92 H PT INR APTT Sodium Potassium Chloride Carbon Dioxide Anion Gap BUN Creatinine Est GFR ( Amer) Est GFR (Non-Af Amer) POC Glucose (mg/dL) 243 H 225 H Random Glucose Calcium Total Bilirubin AST ALT Alkaline Phosphatase C-Reactive Protein Total Protein Albumin Globulin Albumin/Globulin Ratio Urine Color Urine Clarity Urine pH Ur Specific [place] Urine Protein Urine Glucose (UA) Urine Ketones Urine Blood Urine Nitrate Urine Bilirubin Urine Urobilinogen Ur Leukocyte Esterase Urine RBC (Auto) Urine Microscopic WBC Ur Squamous Epith Cells Vancomycin Trough Random Vancomycin Blood Type Antibody Screen BBK History Checked 09/22/18 09/22/18 09/22/18 06:08 06:30 06:30 WBC 11.3 H D RBC 3.26 L Hgb 9.3 L Hct 28.3 L MCV 86.7 MCH 28.5 MCHC 32.9 L RDW 14.2 Plt Count 358 MPV Neut % (Auto) Lymph % (Auto) Polk % (Auto) Eos % (Auto) Baso % (Auto) Neut # (Auto) Lymph # (Auto) [place] # (Auto) Eos # (Auto) Baso # (Auto) Neutrophils % (Manual) Band Neutrophils % Lymphocytes % (Manual) Reactive Lymphs % Monocytes % (Manual) Metamyelocytes % Toxic Granulation Platelet Estimate Plt Clumps, EDTA Large Platelets Hypochromasia (manual) Anisocytosis (manual) Ovalocytes ESR PT INR APTT Sodium 141 Potassium 4.5 Chloride 106 Carbon Dioxide 23 Anion Gap 17 BUN 19 H Creatinine 1.3 H Est GFR ( Amer) 48 Est GFR (Non-Af Amer) 40 POC Glucose (mg/dL) 226 H Random Glucose 194 H Calcium 9.4 Total Bilirubin AST ALT Alkaline Phosphatase C-Reactive Protein Total Protein Albumin Globulin Albumin/Globulin Ratio Urine Color Urine Clarity Urine pH Ur Specific [place] Urine Protein Urine Glucose (UA) Urine Ketones Urine Blood Urine Nitrate Urine Bilirubin Urine Urobilinogen Ur Leukocyte Esterase Urine RBC (Auto) Urine Microscopic WBC Ur Squamous Epith Cells Vancomycin Trough Random Vancomycin Blood Type Antibody Screen BBK History Checked 09/22/18 09/22/18 09:28 10:56 WBC RBC Hgb Hct MCV MCH MCHC RDW Plt Count MPV Neut % (Auto) Lymph % (Auto) [place]k % (Auto) Eos % (Auto) Baso % (Auto) Neut # (Auto) Lymph # (Auto) [place] # (Auto) Eos # (Auto) Baso # (Auto) Neutrophils % (Manual) Band Neutrophils % Lymphocytes % (Manual) Reactive Lymphs % Monocytes % (Manual) Metamyelocytes % Toxic Granulation Platelet Estimate Plt Clumps, EDTA Large Platelets Hypochromasia (manual) Anisocytosis (manual) Ovalocytes ESR PT INR APTT Sodium Potassium Chloride Carbon Dioxide Anion Gap BUN Creatinine Est GFR ( Amer) Est GFR (Non-Af Amer) POC Glucose (mg/dL) 263 H Random Glucose Calcium Total Bilirubin AST ALT Alkaline Phosphatase C-Reactive Protein Total Protein Albumin Globulin Albumin/Globulin Ratio Urine Color Urine Clarity Urine pH Ur Specific [place] Urine Protein Urine Glucose (UA) Urine Ketones Urine Blood Urine Nitrate Urine Bilirubin Urine Urobilinogen Ur Leukocyte Esterase Urine RBC (Auto) Urine Microscopic WBC Ur Squamous Epith Cells Vancomycin Trough 10.0 Random Vancomycin Blood Type Antibody Screen BBK History Checked Microbiology 09/20/18 18:30 Foot - Right Gram Stain - Final 09/20/18 18:30 Foot - Right Wound Culture - Preliminary Gram Negative Mk 09/20/18 18:05 Blood-Venous Blood Culture - Preliminary NO GROWTH AFTER 24 HOURS 09/20/18 18:30 Blood-Venous Blood Culture - Preliminary NO GROWTH AFTER 24 HOURS Assessment and Plan (1) PVD (peripheral vascular disease) Status: Acute (2) Diabetic neuropathy Status: Acute (3) Arterial occlusion, lower extremity Status: Acute (4) Foot ulcer, right Status: Acute (5) Cellulitis and abscess of toe of right foot Status: Acute - Assessment and Plan (Free Text) Assessment: A/P- 78 year old female with DM II, HTN, PVD s/p multiple right leg atherectomy and angioplasty admitted with right great toe ulcer/cellulitis. low grade fever today. wound cx prelim- GNR high ESR foot xray report- soft tissue swelling no osseous involvement as per report. blood x- neg x 2 LE US- Neg for dvt Plan- await wound cx ID and sensitivity. await MRI result. agree with current antibiotics vanco and zosyn pending further results day #2. check 2 more blood cx. keep vanco trough between 10-15. wound care as per podiatry.
[2018-09-22] MEDS: Enoxaparin 80 mg Syringe SC SCH (21:55)
[2018-09-22] MEDS ORDERED: Insulin Detemir 100 Units/ml Inj SC SCH (22:00)
[2018-09-23] MEDS: Piperacillin/Tazobact 3.375 GM in Sodium Chloride 0.9% 100 ML IVPB SCH ×3 (00:32→17:14)
[2018-09-23 07:55] LABS: HEMOGLOBIN 8.8 g/dL (12.0-16.0); MEAN CELL VOLUME 86.5 fl (81.0-99.0); MEAN CORPUSCULAR HEMOGLOBIN 28.6 pg (27.0-31.0); RBC 3.09 Mil/uL (3.80-5.20); RED CELL DISTRIBUTION WIDTH 13.9 % (11.5-14.5); WHITE BLOOD COUNT 9.8 K/uL (4.8-10.8)
[2018-09-23] MEDS: Pantoprazole 40 mg EC Tab PO SCH (10:41)
[2018-09-23] MEDS: Insulin Lispro (humaLOG) 100 Units/ml Inj SC SCH ×4 (10:47→22:41)
--- NOTE | 2018-09-23 12:08 | CP.PCM.PN ---
<Jenaro Luis - Last Filed: 09/23/18 12:09> Subjective - Date & Time of Evaluation Date of Evaluation: 09/23/18 Time of Evaluation: 11:20 - Subjective Subjective: Seen at bedside no acute distress. Max temp in 24h 100.1. Patient only complain is persistent cough. Denies SOB, urinary symptoms or leg pain. Tolerating PO but has lack of appetite. Objective - Vital Signs/Intake and Output Vital Signs (last 24 hours): Temp Pulse Resp BP Pulse Ox 98.9 F 97 H 20 155/74 H 99 09/23/18 09:04 09/23/18 10:41 09/23/18 09:04 09/23/18 10:41 09/23/18 09:04 - Medications Medications: Current Medications Acetaminophen (Tylenol 325mg Tab) 650 mg PO Q4 PRN PRN Reason: Fever >100.4 F Last Admin: 09/22/18 01:06 Dose: 650 mg Albuterol/Ipratropium (Duoneb 3 Mg/0.5 Mg (3 Ml) Ud) 3 ml INH RQ4 PRN PRN Reason: Shortness of Breath Amlodipine Besylate (Norvasc) 10 mg PO DAILY [facility] Last Admin: 09/23/18 10:41 Dose: 10 mg Atorvastatin Calcium (Lipitor) 40 mg PO DAILY [facility] Last Admin: 09/23/18 10:41 Dose: 40 mg Benzonatate (Tessalon Perles) 100 mg PO Q8 PRN PRN Reason: Cough Last Admin: 09/23/18 00:32 Dose: 100 mg Cyclobenzaprine HCl (Flexeril) 5 mg PO TID [facility] Last Admin: 09/22/18 18:28 Dose: 5 mg Dextrose (Dextrose 50% Inj) 0 ml IV STAT PRN; Protocol PRN Reason: Hypoglycemia Protocol Dextrose (Glutose 15) 0 gm PO ONCE PRN; Protocol PRN Reason: Hypoglycemia Protocol Docusate Sodium (Colace) 100 mg PO BID [facility] Last Admin: 09/23/18 10:40 Dose: 100 mg Enoxaparin Sodium (Lovenox) 70 mg SC HS [facility]; Protocol Last Admin: 09/22/18 21:55 Dose: 70 mg Ergocalciferol (Drisdol 50,000 Intl Units Cap) 1 cap PO QWK [facility] Last Admin: 09/21/18 09:01 Dose: 1 cap Glucagon (Glucagen Diagnostic Kit) 0 mg IM STAT PRN; Protocol PRN Reason: Hypoglycemia Protocol Vancomycin HCl 1 gm/ Sodium (Chloride) 250 mls @ 166.667 mls/hr IVPB DAILY [facility]; Protocol Last Admin: 09/22/18 10:11 Dose: 166.667 mls/hr Piperacillin Sod/Tazobactam (Sod 3.375 gm/ Sodium Chloride) 100 mls @ 100 mls/hr IVPB Q8H [facility]; Protocol Last Admin: 09/23/18 10:46 Dose: 100 mls/hr Insulin Detemir (Levemir) 20 units SC HS [facility] Insulin Human Lispro (Humalog) 0 units SC ACCU-CHECK [facility]; Protocol Last Admin: 09/23/18 10:47 Dose: 1 unit Mirtazapine (Remeron) 15 mg PO HS [facility] Last Admin: 09/22/18 21:54 Dose: 15 mg Montelukast Sodium (Singulair) 10 mg PO DAILY [facility] Last Admin: 09/23/18 10:39 Dose: 10 mg Ondansetron HCl (Zofran Odt) 4 mg PO Q8H PRN PRN Reason: Nausea/Vomiting Oxycodone/Acetaminophen (Percocet 5/325 Mg Tab) 1 tab PO Q4 PRN PRN Reason: Pain, severe (8-10) Stop: 09/23/18 18:18 Last Admin: 09/22/18 09:58 Dose: 1 tab Pantoprazole Sodium (Protonix Ec Tab) 40 mg PO DAILY [facility] Last Admin: 09/23/18 10:41 Dose: 40 mg Pregabalin (Lyrica) 50 mg PO TID [facility] Last Admin: 09/23/18 10:41 Dose: 50 mg Pregabalin (Lyrica) 50 mg PO HS [facility] Last Admin: 09/22/18 21:54 Dose: 50 mg - Labs Labs: 09/23/18 06:30 09/23/18 06:30 PT 12.6 Seconds (9.8-13.1) 09/20/18 18:30 INR 1.1 09/20/18 18:30 APTT 35.9 Seconds (25.6-37.1) 09/20/18 18:30 - Constitutional Appears: Non-toxic, No Acute Distress, Chronically Ill - Eye Exam Eye Exam: PERRL - Respiratory Exam Respiratory Exam: Decreased Breath Sounds, NORMAL BREATHING PATTERN. absent: Respiratory Distress - Cardiovascular Exam Cardiovascular Exam: REGULAR RHYTHM, +S1, +S2. absent: Gallop - GI/Abdominal Exam GI & Abdominal Exam: Soft, Normal Bowel Sounds. absent: Distended, Guarding, Tenderness, Rebound - Extremities Exam Extremities Exam: absent: Normal Inspection (Right foot dressing seems clean and intact. ) - Neurological Exam Neurological Exam: Alert, Awake, Oriented x3 - Skin Skin Exam: Normal Color, Warm Assessment and Plan - Assessment and Plan (Free Text) Assessment: 78 years old female brought to the ED because of worsening pain to the right lower extremity with cold right foot. R 1st toe chronic ulcer likely arterial PVD with Partial Right Femoral Artery occlusion No definite OM on MRI of the foot Wound Cx + for ESBL E.Coli sensitive to Meropenen and Zosyn(LUCAS 8). Will wait f or ID recs might need Meropenen s/p Angiogram with Right femoral atherectomy, on March [address] Rodriges and s/p atherectomy/[employer] with DCB of [employer] on 09/12/[address] Zavala at [facility]. Vascular consult Dr Zavala, recs appreciated Podiatry consult, recs appreciated. Poss debridement if cleared by Vasc ID consult, recs appreciated, Dr Glover Lovenox therapeutic dose, renal adjusted. Brellinta stopped for now in case patient needs Sx procedure for toe. Dr Zavala agreed. Pain management. C/w Lyrica C/w IV vancomycin and zosyn renal dose Fever Acute Poss due to wound infection. UA WNL F/U repeat CXR since patient has cough. Initial CXR 3 days ago no active disease C/w IV abx CKD III chronic, stable BUN/creat improved since Yesterday Meds adjusted IDDM Chronic Stable. Accuchecks 200s HbA1c 7.8 on 05/21/18 Lispro Insulin sliding scale according to sliding scale Increase Levemir to 20 mg HS starting tonight Monitor HTN Chronic Controlled C/w Norvasc for now Monitor COPD Chronic Stable C/W PRN Duonebs and O2 Anemia Chronic Likely chronic disease anemia Stable Monitor DVT prophylaxis: On Lovenox therapeutic, renal dose <AguillonVijay barry D - Last Filed: 09/23/18 13:51> Objective - Vital Signs/Intake and Output Vital Signs (last 24 hours): Temp Pulse Resp BP Pulse Ox 98.9 F 97 H 20 155/74 H 99 09/23/18 09:04 09/23/18 10:41 09/23/18 09:04 09/23/18 10:41 09/23/18 09:04 - Medications Medications: Current Medications Acetaminophen (Tylenol 325mg Tab) 650 mg PO Q4 PRN PRN Reason: Fever >100.4 F Last Admin: 09/22/18 01:06 Dose: 650 mg Albuterol/Ipratropium (Duoneb 3 Mg/0.5 Mg (3 Ml) Ud) 3 ml INH RQ4 PRN PRN Reason: Shortness of Breath Amlodipine Besylate (Norvasc) 10 mg PO DAILY [facility] Last Admin: 09/23/18 10:41 Dose: 10 mg Atorvastatin Calcium (Lipitor) 40 mg PO DAILY [facility] Last Admin: 09/23/18 10:41 Dose: 40 mg Benzonatate (Tessalon Perles) 100 mg PO Q8 PRN PRN Reason: Cough Last Admin: 09/23/18 12:10 Dose: 100 mg Cyclobenzaprine HCl (Flexeril) 5 mg PO TID [facility] Last Admin: 09/22/18 18:28 Dose: 5 mg Dextrose (Dextrose 50% Inj) 0 ml IV STAT PRN; Protocol PRN Reason: Hypoglycemia Protocol Dextrose (Glutose 15) 0 gm PO ONCE PRN; Protocol PRN Reason: Hypoglycemia Protocol Docusate Sodium (Colace) 100 mg PO BID [facility] Last Admin: 09/23/18 10:40 Dose: 100 mg Enoxaparin Sodium (Lovenox) 70 mg SC HS [facility]; Protocol Last Admin: 09/22/18 21:55 Dose: 70 mg Ergocalciferol (Drisdol 50,000 Intl Units Cap) 1 cap PO QWK [facility] Last Admin: 09/21/18 09:01 Dose: 1 cap Glucagon (Glucagen Diagnostic Kit) 0 mg IM STAT PRN; Protocol PRN Reason: Hypoglycemia Protocol Vancomycin HCl 1 gm/ Sodium (Chloride) 250 mls @ 166.667 mls/hr IVPB DAILY [facility]; Protocol Last Admin: 09/23/18 12:08 Dose: 166.667 mls/hr Piperacillin Sod/Tazobactam (Sod 3.375 gm/ Sodium Chloride) 100 mls @ 100 mls/hr IVPB Q8H [facility]; Protocol Last Admin: 09/23/18 10:46 Dose: 100 mls/hr Insulin Detemir (Levemir) 20 units SC HS [facility] Insulin Human Lispro (Humalog) 0 units SC ACCU-CHECK [facility]; Protocol Last Admin: 09/23/18 12:11 Dose: 2 unit Mirtazapine (Remeron) 15 mg PO HS [facility] Last Admin: 09/22/18 21:54 Dose: 15 mg Montelukast Sodium (Singulair) 10 mg PO DAILY [facility] Last Admin: 09/23/18 10:39 Dose: 10 mg Ondansetron HCl (Zofran Odt) 4 mg PO Q8H PRN PRN Reason: Nausea/Vomiting Oxycodone/Acetaminophen (Percocet 5/325 Mg Tab) 1 tab PO Q4 PRN PRN Reason: Pain, severe (8-10) Stop: 09/23/18 18:18 Last Admin: 09/23/18 12:10 Dose: 1 tab Pantoprazole Sodium (Protonix Ec Tab) 40 mg PO DAILY [facility] Last Admin: 09/23/18 10:41 Dose: 40 mg Pregabalin (Lyrica) 50 mg PO TID [facility] Last Admin: 09/23/18 10:41 Dose: 50 mg Pregabalin (Lyrica) 50 mg PO HS [facility] Last Admin: 09/22/18 21:54 Dose: 50 mg - Labs Labs: 09/23/18 06:30 09/23/18 06:30 PT 12.6 Seconds (9.8-13.1) 09/20/18 18:30 INR 1.1 09/20/18 18:30 APTT 35.9 Seconds (25.6-37.1) 09/20/18 18:30 Attending/Attestation - Attestation I have personally seen and examined this patient.: Yes I have fully participated in the care of the patient.: Yes I have reviewed all pertinent clinical information, including history, physical exam and plan: Yes Notes (Text): 09/23/18 13:51 Patient seen and examined with resident. Case discussed and agreed with assessment and plan.
[2018-09-23] MEDS: Oxycodone/Acetaminophen 5/325 mg Tab PO PRN ×2 (12:10→19:38)
--- NOTE | 2018-09-23 12:50 | CP.PCM.PN ---
Subjective - Date & Time of Evaluation Date of Evaluation: 09/23/18 Time of Evaluation: 12:49 - Subjective Subjective: Podiatry consult note for attending Dr Marks: 78 y/o female patient seen and evaluated in the bedside for R hallux infected ulcer and cellulitis. Patient reports she had a fever overnight, and complains of chills at this time. Patient is also complaining of abdominal and flank pain. Patient states that she has mild pain in her ulcer site at the R big toe. She denies any other acute pedal complaints at this time. Objective - Vital Signs/Intake and Output Vital Signs (last 24 hours): Temp Pulse Resp BP Pulse Ox 98.9 F 97 H 20 155/74 H 99 09/23/18 09:04 09/23/18 10:41 09/23/18 09:04 09/23/18 10:41 09/23/18 09:04 - Medications Medications: Current Medications Acetaminophen (Tylenol 325mg Tab) 650 mg PO Q4 PRN PRN Reason: Fever >100.4 F Last Admin: 09/22/18 01:06 Dose: 650 mg Albuterol/Ipratropium (Duoneb 3 Mg/0.5 Mg (3 Ml) Ud) 3 ml INH RQ4 PRN PRN Reason: Shortness of Breath Amlodipine Besylate (Norvasc) 10 mg PO DAILY [facility] Last Admin: 09/23/18 10:41 Dose: 10 mg Atorvastatin Calcium (Lipitor) 40 mg PO DAILY [facility] Last Admin: 09/23/18 10:41 Dose: 40 mg Benzonatate (Tessalon Perles) 100 mg PO Q8 PRN PRN Reason: Cough Last Admin: 09/23/18 12:10 Dose: 100 mg Cyclobenzaprine HCl (Flexeril) 5 mg PO TID [facility] Last Admin: 09/22/18 18:28 Dose: 5 mg Dextrose (Dextrose 50% Inj) 0 ml IV STAT PRN; Protocol PRN Reason: Hypoglycemia Protocol Dextrose (Glutose 15) 0 gm PO ONCE PRN; Protocol PRN Reason: Hypoglycemia Protocol Docusate Sodium (Colace) 100 mg PO BID [facility] Last Admin: 09/23/18 10:40 Dose: 100 mg Enoxaparin Sodium (Lovenox) 70 mg SC HS [facility]; Protocol Last Admin: 09/22/18 21:55 Dose: 70 mg Ergocalciferol (Drisdol 50,000 Intl Units Cap) 1 cap PO QWK [facility] Last Admin: 09/21/18 09:01 Dose: 1 cap Glucagon (Glucagen Diagnostic Kit) 0 mg IM STAT PRN; Protocol PRN Reason: Hypoglycemia Protocol Vancomycin HCl 1 gm/ Sodium (Chloride) 250 mls @ 166.667 mls/hr IVPB DAILY [facility]; Protocol Last Admin: 09/23/18 12:08 Dose: 166.667 mls/hr Piperacillin Sod/Tazobactam (Sod 3.375 gm/ Sodium Chloride) 100 mls @ 100 mls/hr IVPB Q8H [facility]; Protocol Last Admin: 09/23/18 10:46 Dose: 100 mls/hr Insulin Detemir (Levemir) 20 units SC HS [facility] Insulin Human Lispro (Humalog) 0 units SC ACCU-CHECK [facility]; Protocol Last Admin: 09/23/18 12:11 Dose: 2 unit Mirtazapine (Remeron) 15 mg PO HS [facility] Last Admin: 09/22/18 21:54 Dose: 15 mg Montelukast Sodium (Singulair) 10 mg PO DAILY [facility] Last Admin: 09/23/18 10:39 Dose: 10 mg Ondansetron HCl (Zofran Odt) 4 mg PO Q8H PRN PRN Reason: Nausea/Vomiting Oxycodone/Acetaminophen (Percocet 5/325 Mg Tab) 1 tab PO Q4 PRN PRN Reason: Pain, severe (8-10) Stop: 09/23/18 18:18 Last Admin: 09/23/18 12:10 Dose: 1 tab Pantoprazole Sodium (Protonix Ec Tab) 40 mg PO DAILY [facility] Last Admin: 09/23/18 10:41 Dose: 40 mg Pregabalin (Lyrica) 50 mg PO TID [facility] Last Admin: 09/23/18 10:41 Dose: 50 mg Pregabalin (Lyrica) 50 mg PO HS [facility] Last Admin: 09/22/18 21:54 Dose: 50 mg - Labs Labs: 09/23/18 06:30 09/23/18 06:30 PT 12.6 Seconds (9.8-13.1) 09/20/18 18:30 INR 1.1 09/20/18 18:30 APTT 35.9 Seconds (25.6-37.1) 09/20/18 18:30 - Constitutional Appears: Well, Non-toxic, No Acute Distress - Head Exam Head Exam: ATRAUMATIC, NORMOCEPHALIC - Extremities Exam Additional comments: B/l LE focused exam: VASC: R DP pulses very faintly palpable R PT pulse is palpable 1/4, L DP/PT 2/4. Cap refill almost 3 sec to all digits. Temp gradient warm to warmer on the R side and warm to cool on the left side from proximal to distal. Non pitting edema noted on the right foot up to the ankle. Erythema extending from the R hallux to the R 1st MPJ. Small superficial varicosities noted to the L foot and ankle NEURO: Gross and Protective sensation are grossly diminished. DERM: an ulcer measuring 1.2X1.2X0.3cm noted in the nail bed of the R hallux. Positive purulent discharge, positive probe to bone, No malodor, No tracking or undermining. Base is granular: fibrotic 50:50 with black eschar covering the tip of the toe. Erythema extending from the R hallux to the R 1st MPJ. Positive clinical signs of active infection. MSK: Mild pain to palpation of the R hallux. Muscle power intact 5/5 to all groups. - Neurological Exam Neurological Exam: Alert, Awake, Oriented x3 - Psychiatric Exam Psychiatric exam: Normal Affect, Normal Mood Assessment and Plan - Assessment and Plan (Free Text) Assessment: 78 y/o female patient seen and evaluated in the bedside for R hallux infected ulcer and cellulitis. Plan: Patient seen and evaluated in bedside Discussed with attending Dr. Marks Labs and vitals reviewed- febrile, WBCs 11.3 (09/22) Wound Cx: Gram Negative Rods R foot X-ray: Soft tissue swelling without acute articular or osseous anomalies. R foot MRI: mild inflammation at site of ulceration, despite motion artifact, no definite evidece of osteomyelitis is appreciated, mild thinning of skin RLE arterial duplex: Inflow disease with high common femoral artery flow, R common femoral artery and SFA have atherosclerotic disease with areas of narrowing and stenosis. Flow is identified in the popliteal, posterior tibial and DP arteries. ESR: 92 (09/21/18) CRP: 18.30 Wound dressed with SSD and DSD Patient is on Vanco/Zosyn ID consulted: recommendations appreciated Vascular sx consulted: pending recommendations, all recommendations appreciated Podiatry surgical plan pending vascular recommendations Patient to ambulate in the surgical shoe all the times Podiatry will continue to follow up the patient while in house
--- NOTE | 2018-09-23 13:37 | RAD ---
Date of service: 09/23/2018 HISTORY: Fever. Cough COMPARISON: Comparison chest dated 09/20/2018. TECHNIQUE: Chest PA and lateral FINDINGS: LUNGS: Mild chronic compensated pulmonary venous congestion. Very tiny bilateral effusions not excluded PLEURA: No pneumothorax apparent. CARDIOVASCULAR: Mild aortic atherosclerotic calcification present. Cardiomegaly. OSSEOUS STRUCTURES: Mild-moderate multilevel degenerative spondylosis of the thoracic spine. VISUALIZED UPPER ABDOMEN: Normal. OTHER FINDINGS: None. IMPRESSION: Mild chronic compensated pulmonary venous congestion
[2018-09-23] MEDS: Albuterol-Ipratrop 3 mg / 0.5 (3 ml) UD INH PRN (19:02)
[2018-09-23] MEDS: Meropenem 1 GM in Sodium Chloride 0.9% 100 ML IVPB SCH (21:06)
[2018-09-23] MEDS: Enoxaparin 80 mg Syringe SC SCH (22:14)
[2018-09-23] MEDS: Insulin Detemir 100 Units/ml Inj SC SCH (22:40)
[2018-09-24] MEDS: Meropenem 1 GM in Sodium Chloride 0.9% 100 ML IVPB SCH ×3 (01:33→17:22)
[2018-09-24] MEDS: Oxycodone/Acetaminophen 5/325 mg Tab PO PRN ×3 (05:07→21:10)
[2018-09-24 06:31] LABS: BASO % 0.5 % (0.0-2.0); EOS # 0.5 K/uL (0.0-0.7); EOS % 6.7 % (0.0-4.0); HEMOGLOBIN 8.6 g/dL (12.0-16.0); LYMPH # 2.1 K/uL (1.0-4.3); MEAN CELL VOLUME 86.6 fl (81.0-99.0); MEAN CORPUSCULAR HEMOGLOBIN 28.3 pg (27.0-31.0); MEAN CORPUSCULAR HGB CONC 32.7 g/dL (33.0-37.0); MEAN PLATELET VOLUME 8.3 fl (7.2-11.7); MONO # 1.1 K/uL (0.0-0.8); NEUT % 51.8 % (50.0-75.0); RBC 3.03 Mil/uL (3.80-5.20); RED CELL DISTRIBUTION WIDTH 14.1 % (11.5-14.5); WHITE BLOOD COUNT 7.8 K/uL (4.8-10.8)
[2018-09-24 06:40] LABS: CALCIUM 9.2 mg/dL (8.4-10.2)
[2018-09-24 08:02] LABS: HEPATITIS B SURFACE AG Negative (NEGATIVE)
[2018-09-24 08:08] LABS: HEPATITIS A IGM NEGATIVE (NEGATIVE); HEPATITIS B CORE AB NEGATIVE (NEGATIVE)
[2018-09-24 08:19] LABS: HEPATITIS C ANTIBODY NEGATIVE (NEGATIVE)
[2018-09-24] MEDS: Insulin Lispro (humaLOG) 100 Units/ml Inj SC SCH ×4 (09:18→22:00)
[2018-09-24] MEDS: Pantoprazole 40 mg EC Tab PO SCH (09:22)
[2018-09-24] MEDS: Albuterol-Ipratrop 3 mg / 0.5 (3 ml) UD INH PRN ×3 (09:25→20:12)
--- NOTE | 2018-09-24 09:36 | CP.PCM.PN ---
Subjective - Date & Time of Evaluation Date of Evaluation: 09/24/18 Time of Evaluation: 09:35 - Subjective Subjective: Id Note- patient seen and examined today . denies any fever. her daughter is at her bedside. Objective - Vital Signs/Intake and Output Vital Signs (last 24 hours): Temp Pulse Resp BP Pulse Ox 97.4 F L 89 20 146/66 99 09/24/18 08:52 09/24/18 08:52 09/24/18 08:52 09/24/18 09:18 09/24/18 08:52 - Medications Medications: Current Medications Acetaminophen (Tylenol 325mg Tab) 650 mg PO Q4 PRN PRN Reason: Fever >100.4 F Last Admin: 09/22/18 01:06 Dose: 650 mg Albuterol/Ipratropium (Duoneb 3 Mg/0.5 Mg (3 Ml) Ud) 3 ml INH RQ4 PRN PRN Reason: Shortness of Breath Last Admin: 09/23/18 19:02 Dose: 3 ml Amlodipine Besylate (Norvasc) 10 mg PO DAILY [facility] Last Admin: 09/24/18 09:18 Dose: 10 mg Atorvastatin Calcium (Lipitor) 40 mg PO DAILY [facility] Last Admin: 09/24/18 09:16 Dose: 40 mg Benzonatate (Tessalon Perles) 100 mg PO Q8 PRN PRN Reason: Cough Last Admin: 09/24/18 09:15 Dose: 100 mg Cyclobenzaprine HCl (Flexeril) 5 mg PO TID [facility] Last Admin: 09/23/18 16:15 Dose: Not Given Dextrose (Dextrose 50% Inj) 0 ml IV STAT PRN; Protocol PRN Reason: Hypoglycemia Protocol Dextrose (Glutose 15) 0 gm PO ONCE PRN; Protocol PRN Reason: Hypoglycemia Protocol Docusate Sodium (Colace) 100 mg PO BID [facility] Last Admin: 09/24/18 09:19 Dose: 100 mg Enoxaparin Sodium (Lovenox) 70 mg SC HS [facility]; Protocol Last Admin: 09/23/18 22:14 Dose: 70 mg Ergocalciferol (Drisdol 50,000 Intl Units Cap) 1 cap PO QWK [facility] Last Admin: 09/21/18 09:01 Dose: 1 cap Glucagon (Glucagen Diagnostic Kit) 0 mg IM STAT PRN; Protocol PRN Reason: Hypoglycemia Protocol Vancomycin HCl 1 gm/ Sodium (Chloride) 250 mls @ 166.667 mls/hr IVPB DAILY [facility]; Protocol Last Admin: 09/24/18 09:23 Dose: 166.667 mls/hr Meropenem 1 gm/ Sodium (Chloride) 100 mls @ 100 mls/hr IVPB Q8 [facility]; Protocol Last Admin: 09/24/18 09:25 Dose: 100 mls/hr Insulin Detemir (Levemir) 20 units SC [facility] Last Admin: 09/23/18 22:40 Dose: 20 u Insulin Human Lispro (Humalog) 0 units SC ACCU-CHECK [facility]; Protocol Last Admin: 09/24/18 09:18 Dose: Not Given Mirtazapine (Remeron) 15 mg PO HS [facility] Last Admin: 09/23/18 22:15 Dose: 15 mg Montelukast Sodium (Singulair) 10 mg PO DAILY [facility] Last Admin: 09/24/18 09:18 Dose: 10 mg Ondansetron HCl (Zofran Odt) 4 mg PO Q8H PRN PRN Reason: Nausea/Vomiting Oxycodone/Acetaminophen (Percocet 5/325 Mg Tab) 1 tab PO Q4 PRN PRN Reason: Pain, severe (8-10) Stop: 09/26/18 19:19 Last Admin: 09/24/18 05:07 Dose: 1 tab Pantoprazole Sodium (Protonix Ec Tab) 40 mg PO DAILY [facility] Last Admin: 09/24/18 09:22 Dose: 40 mg Pregabalin (Lyrica) 50 mg PO TID [facility] Last Admin: 09/24/18 09:29 Dose: 50 mg Pregabalin (Lyrica) 50 mg PO HS [facility] Last Admin: 09/23/18 22:15 Dose: 50 mg - Labs Labs: - Additional Findings Additional findings: Constitutional Appears: No Acute Distress - Head Exam Head Exam: ATRAUMATIC - Eye Exam Eye Exam: EOMI - ENT Exam ENT Exam: Normal Oropharynx - Neck Exam Neck exam: Positive for: Full Rom - Respiratory Exam Respiratory Exam: Clear to Auscultation Bilateral, NORMAL BREATHING PATTERN - Cardiovascular Exam Cardiovascular Exam: RRR, +S1, +S2 - GI/Abdominal Exam GI & Abdominal Exam: Normal Bowel Sounds, Soft Additional comments: NT, ND - Extremities Exam Additional comments: right great toe anterior region nail bed with debrided nail bed and slight yellow discharge, no malodor, surrounding erythema and edema, + tender to touch erythema localized to the toe region only - Neurological Exam Neurological exam: AAo x 3 Laboratory Results - last 72 hr 09/21/18 09/21/18 09/21/18 15:47 16:40 21:52 WBC RBC Hgb Hct MCV MCH MCHC RDW Plt Count MPV Neut % (Auto) Lymph % (Auto) [place] % (Auto) Eos % (Auto) Baso % (Auto) Neut # (Auto) Lymph # (Auto) [place] # (Auto) Eos # (Auto) Baso # (Auto) ESR 92 H Sodium Potassium Chloride Carbon Dioxide Anion Gap BUN Creatinine Est GFR ( Amer) Est GFR (Non-Af Amer) POC Glucose (mg/dL) 243 H 225 H Random Glucose Calcium Vancomycin Trough RPR Hepatitis A IgM Ab Hep Bs Antigen Hep Bs Antibody Hep B Core IgM Ab Hepatitis C Antibody HIV 1&2 Antibody Screen 09/22/18 09/22/18 09/22/18 06:08 06:30 06:30 WBC 11.3 H D RBC 3.26 L Hgb 9.3 L Hct 28.3 L MCV 86.7 MCH 28.5 MCHC 32.9 L RDW 14.2 Plt Count 358 MPV Neut % (Auto) Lymph % (Auto) [place] % (Auto) Eos % (Auto) Baso % (Auto) Neut # (Auto) Lymph # (Auto) [place] # (Auto) Eos # (Auto) Baso # (Auto) ESR Sodium 141 Potassium 4.5 Chloride 106 Carbon Dioxide 23 Anion Gap 17 BUN 19 H Creatinine 1.3 H Est GFR ( Amer) 48 Est GFR (Non-Af Amer) 40 POC Glucose (mg/dL) 226 H Random Glucose 194 H Calcium 9.4 Vancomycin Trough RPR Hepatitis A IgM Ab Hep Bs Antigen Hep Bs Antibody Hep B Core IgM Ab Hepatitis C Antibody HIV 1&2 Antibody Screen 09/22/18 09/22/18 09/22/18 09:28 10:56 16:23 WBC RBC Hgb Hct MCV MCH MCHC RDW Plt Count MPV Neut % (Auto) Lymph % (Auto) [place] % (Auto) Eos % (Auto) Baso % (Auto) Neut # (Auto) Lymph # (Auto) [place] # (Auto) Eos # (Auto) Baso # (Auto) ESR Sodium Potassium Chloride Carbon Dioxide Anion Gap BUN Creatinine Est GFR ( Amer) Est GFR (Non-Af Amer) POC Glucose (mg/dL) 263 H 201 H Random Glucose Calcium Vancomycin Trough 10.0 RPR Hepatitis A IgM Ab Hep Bs Antigen Hep Bs Antibody Hep B Core IgM Ab Hepatitis C Antibody HIV 1&2 Antibody Screen 09/22/18 09/23/18 09/23/18 21:32 05:16 06:30 WBC 9.8 RBC 3.09 L Hgb 8.8 L Hct 26.7 L MCV 86.5 MCH 28.6 MCHC 33.0 RDW 13.9 Plt Count 307 MPV Neut % (Auto) Lymph % (Auto) [place] % (Auto) Eos % (Auto) Baso % (Auto) Neut # (Auto) Lymph # (Auto) [place] # (Auto) Eos # (Auto) Baso # (Auto) ESR Sodium Potassium Chloride Carbon Dioxide Anion Gap BUN Creatinine Est GFR ( Amer) Est GFR (Non-Af Amer) POC Glucose (mg/dL) 244 H 218 H Random Glucose Calcium Vancomycin Trough RPR Hepatitis A IgM Ab Hep Bs Antigen Hep Bs Antibody Hep B Core IgM Ab Hepatitis C Antibody HIV 1&2 Antibody Screen 09/23/18 09/23/18 09/23/18 06:30 06:30 10:54 WBC RBC Hgb Hct MCV MCH MCHC RDW Plt Count MPV Neut % (Auto) Lymph % (Auto) [place] % (Auto) Eos % (Auto) Baso % (Auto) Neut # (Auto) Lymph # (Auto) [place] # (Auto) Eos # (Auto) Baso # (Auto) ESR Sodium 140 Potassium 4.1 Chloride 106 Carbon Dioxide 23 Anion Gap 15 BUN 16 Creatinine 1.2 Est GFR ( Amer) 53 Est GFR (Non-Af Amer) 43 POC Glucose (mg/dL) 214 H Random Glucose 184 H Calcium 9.0 Vancomycin Trough 9.6 RPR Hepatitis A IgM Ab Hep Bs Antigen Hep Bs Antibody Hep B Core IgM Ab Hepatitis C Antibody HIV 1&2 Antibody Screen 09/23/18 09/23/18 09/23/18 12:43 12:43 12:43 WBC RBC Hgb Hct MCV MCH MCHC RDW Plt Count MPV Neut % (Auto) Lymph % (Auto) [place] % (Auto) Eos % (Auto) Baso % (Auto) Neut # (Auto) Lymph # (Auto) [place] # (Auto) Eos # (Auto) Baso # (Auto) ESR Sodium Potassium Chloride Carbon Dioxide Anion Gap BUN Creatinine Est GFR ( Amer) Est GFR (Non-Af Amer) POC Glucose (mg/dL) Random Glucose Calcium Vancomycin Trough RPR Hepatitis A IgM Ab Negative Hep Bs Antigen Negative Hep Bs Antibody Negative Hep B Core IgM Ab Negative Hepatitis C Antibody Negative HIV 1&2 Antibody Screen Negative 09/23/18 09/23/18 09/23/18 12:43 16:51 21:28 WBC RBC Hgb Hct MCV MCH MCHC RDW Plt Count MPV Neut % (Auto) Lymph % (Auto) [place] % (Auto) Eos % (Auto) Baso % (Auto) Neut # (Auto) Lymph # (Auto) [place] # (Auto) Eos # (Auto) Baso # (Auto) ESR Sodium Potassium Chloride Carbon Dioxide Anion Gap BUN Creatinine Est GFR ( Amer) Est GFR (Non-Af Amer) POC Glucose (mg/dL) 159 H 271 H Random Glucose Calcium Vancomycin Trough RPR Nonreactive Hepatitis A IgM Ab Hep Bs Antigen Hep Bs Antibody Hep B Core IgM Ab Hepatitis C Antibody HIV 1&2 Antibody Screen 09/24/18 09/24/18 09/24/18 05:02 05:30 05:30 WBC 7.8 RBC 3.03 L Hgb 8.6 L Hct 26.3 L MCV 86.6 MCH 28.3 MCHC 32.7 L RDW 14.1 Plt Count 291 MPV 8.3 Neut % (Auto) 51.8 Lymph % (Auto) 27.0 [place] % (Auto) 14.0 H Eos % (Auto) 6.7 H Baso % (Auto) 0.5 Neut # (Auto) 4.0 Lymph # (Auto) 2.1 [place] # (Auto) 1.1 H Eos # (Auto) 0.5 Baso # (Auto) 0.0 ESR Sodium 142 Potassium 3.8 Chloride 109 H Carbon Dioxide 25 Anion Gap 12 BUN 17 Creatinine 1.1 Est GFR ( Amer) 58 Est GFR (Non-Af Amer) 48 POC Glucose (mg/dL) 123 H Random Glucose 112 H Calcium 9.2 Vancomycin Trough RPR Hepatitis A IgM Ab Hep Bs Antigen Hep Bs Antibody Hep B Core IgM Ab Hepatitis C Antibody HIV 1&2 Antibody Screen 09/24/18 11:34 WBC RBC Hgb Hct MCV MCH MCHC RDW Plt Count MPV Neut % (Auto) Lymph % (Auto) [place] % (Auto) Eos % (Auto) Baso % (Auto) Neut # (Auto) Lymph # (Auto) [place] # (Auto) Eos # (Auto) Baso # (Auto) ESR Sodium Potassium Chloride Carbon Dioxide Anion Gap BUN Creatinine Est GFR ( Amer) Est GFR (Non-Af Amer) POC Glucose (mg/dL) 238 H Random Glucose Calcium Vancomycin Trough RPR Hepatitis A IgM Ab Hep Bs Antigen Hep Bs Antibody Hep B Core IgM Ab Hepatitis C Antibody HIV 1&2 Antibody Screen Microbiology 09/20/18 18:05 Blood-Venous Blood Culture - Preliminary NO GROWTH AFTER 3 DAYS 09/20/18 18:30 Blood-Venous Blood Culture - Preliminary NO GROWTH AFTER 3 DAYS 09/20/18 18:30 Foot - Right Gram Stain - Final 09/20/18 18:30 Foot - Right Wound Culture - Final Escherichia Coli Corynebacterium Species Assessment and Plan (1) PVD (peripheral vascular disease) Status: Acute (2) Diabetic neuropathy Status: Acute (3) Arterial occlusion, lower extremity Status: Acute (4) Foot ulcer, right Status: Acute (5) Cellulitis and abscess of toe of right foot Status: Acute - Assessment and Plan (Free Text) Assessment: A/P- 78 year old female with DM II, HTN, PVD s/p multiple right leg atherectomy and angioplasty admitted with right great toe ulcer/cellulitis. afebrile wound cx prelim- esbl e.coli and corynebacterium high ESR foot xray report- soft tissue swelling no osseous involvement as per report. blood x- neg x 2 LE US- Neg for dvt MRI as per report negative for OM. Plan- changed abx to meropnem for ESBL e.coli coverage day #2. continue with vanco day #4. keep vanco trough between 10-15. wound care as per podiatry. length of abx most likely 10-14 days . all above d/w patient and her daughter and they verbalize full understanding of all above and agree with above plan of care.
--- NOTE | 2018-09-24 11:02 | CP.PCM.PN ---
<Jenaro Luis - Last Filed: 09/24/18 11:03> Subjective - Date & Time of Evaluation Date of Evaluation: 09/24/18 Time of Evaluation: 09:30 - Subjective Subjective: Seen at bedside, lying in bed, no acute distress. C/o intermittent dry cough that is chronic. Denies leg pain. Afebrile overnight. Wound Cx + for ESBL E.Coli. Contact precautions in place. Denies CP, SOB, vomiting, nausea, dysuria or diarrhea. Objective - Vital Signs/Intake and Output Vital Signs (last 24 hours): Temp Pulse Resp BP Pulse Ox 97.4 F L 89 20 146/66 99 09/24/18 08:52 09/24/18 08:52 09/24/18 08:52 09/24/18 09:18 09/24/18 08:52 - Medications Medications: Current Medications Acetaminophen (Tylenol 325mg Tab) 650 mg PO Q4 PRN PRN Reason: Fever >100.4 F Last Admin: 09/22/18 01:06 Dose: 650 mg Albuterol/Ipratropium (Duoneb 3 Mg/0.5 Mg (3 Ml) Ud) 3 ml INH RQ4 PRN PRN Reason: Shortness of Breath Last Admin: 09/24/18 09:25 Dose: 3 ml Amlodipine Besylate (Norvasc) 10 mg PO DAILY [facility] Last Admin: 09/24/18 09:18 Dose: 10 mg Atorvastatin Calcium (Lipitor) 40 mg PO DAILY [facility] Last Admin: 09/24/18 09:16 Dose: 40 mg Benzonatate (Tessalon Perles) 100 mg PO Q8 PRN PRN Reason: Cough Last Admin: 09/24/18 09:15 Dose: 100 mg Cyclobenzaprine HCl (Flexeril) 5 mg PO TID [facility] Last Admin: 09/23/18 16:15 Dose: Not Given Dextrose (Dextrose 50% Inj) 0 ml IV STAT PRN; Protocol PRN Reason: Hypoglycemia Protocol Dextrose (Glutose 15) 0 gm PO ONCE PRN; Protocol PRN Reason: Hypoglycemia Protocol Docusate Sodium (Colace) 100 mg PO BID [facility] Last Admin: 09/24/18 09:19 Dose: 100 mg Enoxaparin Sodium (Lovenox) 70 mg SC HS [facility]; Protocol Last Admin: 09/23/18 22:14 Dose: 70 mg Ergocalciferol (Drisdol 50,000 Intl Units Cap) 1 cap PO QWK [facility] Last Admin: 09/21/18 09:01 Dose: 1 cap Glucagon (Glucagen Diagnostic Kit) 0 mg IM STAT PRN; Protocol PRN Reason: Hypoglycemia Protocol Vancomycin HCl 1 gm/ Sodium (Chloride) 250 mls @ 166.667 mls/hr IVPB DAILY [facility]; Protocol Last Admin: 09/24/18 09:23 Dose: 166.667 mls/hr Meropenem 1 gm/ Sodium (Chloride) 100 mls @ 100 mls/hr IVPB Q8 [facility]; Protocol Last Admin: 09/24/18 09:25 Dose: 100 mls/hr Insulin Detemir (Levemir) 20 units SC HS [facility] Last Admin: 09/23/18 22:40 Dose: 20 u Insulin Human Lispro (Humalog) 0 units SC ACCU-CHECK [facility]; Protocol Last Admin: 09/24/18 09:18 Dose: Not Given Mirtazapine (Remeron) 15 mg PO HS [facility] Last Admin: 09/23/18 22:15 Dose: 15 mg Montelukast Sodium (Singulair) 10 mg PO DAILY [facility] Last Admin: 09/24/18 09:18 Dose: 10 mg Ondansetron HCl (Zofran Odt) 4 mg PO Q8H PRN PRN Reason: Nausea/Vomiting Oxycodone/Acetaminophen (Percocet 5/325 Mg Tab) 1 tab PO Q4 PRN PRN Reason: Pain, severe (8-10) Stop: 09/26/18 19:19 Last Admin: 09/24/18 05:07 Dose: 1 tab Pantoprazole Sodium (Protonix Ec Tab) 40 mg PO DAILY [facility] Last Admin: 09/24/18 09:22 Dose: 40 mg Pregabalin (Lyrica) 50 mg PO TID [facility] Last Admin: 09/24/18 09:29 Dose: 50 mg Pregabalin (Lyrica) 50 mg PO HS [facility] Last Admin: 09/23/18 22:15 Dose: 50 mg - Labs Labs: 09/24/18 05:30 09/24/18 05:30 PT 12.6 Seconds (9.8-13.1) 09/20/18 18:30 INR 1.1 09/20/18 18:30 APTT 35.9 Seconds (25.6-37.1) 09/20/18 18:30 - Constitutional Appears: Non-toxic, Chronically Ill - Eye Exam Eye Exam: EOMI, PERRL - ENT Exam ENT Exam: Mucous Membranes Moist - Respiratory Exam Respiratory Exam: NORMAL BREATHING PATTERN. absent: Decreased Breath Sounds, Respiratory Distress - Cardiovascular Exam Cardiovascular Exam: +S1, +S2. absent: Gallop - GI/Abdominal Exam GI & Abdominal Exam: Soft, Normal Bowel Sounds. absent: Distended, Guarding, Rigid, Tenderness - Extremities Exam Extremities Exam: absent: Calf Tenderness, Normal Inspection (dressing clean and intact. NO signs of acute neurovascular compromise) - Back Exam Back Exam: absent: CVA tenderness (L), CVA tenderness (R) - Neurological Exam Neurological Exam: Alert, Normal Gait. absent: Motor Sensory Deficit - Psychiatric Exam Psychiatric exam: Normal Affect, Normal Mood - Skin Skin Exam: Warm Assessment and Plan - Assessment and Plan (Free Text) Assessment: 78 years old female brought to the ED because of worsening pain to the right lower extremity with cold right foot. 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 C/W Meropenen 1g q8h day 2 s/p Angiogram with Right femoral atherectomy, on March [address] Rodriges and s/p atherectomy/[employer] with DCB of R CROSSING GUARD on 09/12/[address] Shabazz at [facility]. Vascular consult Dr Shabazz, recs appreciated Podiatry consult, recs appreciated. Poss debridement if cleared by Vasc ID consult, recs appreciated, Dr Glover Lovenox therapeutic dose, renal adjusted. Brellinta stopped for now in case patient needs Sx procedure for toe. Dr Shabazz agreed. Pain management. C/w Lyrica Fever Afebrile overnight Acute Poss due to wound infection. UA WNL Repeat CXR no active disease C/w IV abx BCx x2 neg ESBL, E.Coli infection Contact precautions ID on board C/w IV Meropenen CKD III chronic, stable BUN/creat stable Meds adjusted IDDM Chronic Stable. Accuchecks 200s HbA1c 7.8 on 05/21/18 Lispro Insulin sliding scale according to sliding scale C/w Levemir to 20 mg HS Monitor HTN Chronic Controlled C/w Norvasc for now Monitor COPD Chronic Stable C/W PRN Duonebs and O2 Anemia Chronic Likely chronic disease anemia Stable Monitor DVT prophylaxis: On Lovenox therapeutic, renal dose <Danya Espinoza - Last Filed: 09/24/18 13:44> Objective - Vital Signs/Intake and Output Vital Signs (last 24 hours): Temp Pulse Resp BP Pulse Ox 97.4 F L 89 20 146/66 99 09/24/18 08:52 09/24/18 08:52 09/24/18 08:52 09/24/18 09:18 09/24/18 08:52 - Medications Medications: Current Medications Acetaminophen (Tylenol 325mg Tab) 650 mg PO Q4 PRN PRN Reason: Fever >100.4 F Last Admin: 09/22/18 01:06 Dose: 650 mg Albuterol/Ipratropium (Duoneb 3 Mg/0.5 Mg (3 Ml) Ud) 3 ml INH RQ4 PRN PRN Reason: Shortness of Breath Last Admin: 09/24/18 09:25 Dose: 3 ml Amlodipine Besylate (Norvasc) 10 mg PO DAILY [facility] Last Admin: 09/24/18 09:18 Dose: 10 mg Atorvastatin Calcium (Lipitor) 40 mg PO DAILY [facility] Last Admin: 09/24/18 09:16 Dose: 40 mg Benzonatate (Tessalon Perles) 100 mg PO Q8 PRN PRN Reason: Cough Last Admin: 09/24/18 09:15 Dose: 100 mg Cyclobenzaprine HCl (Flexeril) 5 mg PO TID [facility] Last Admin: 09/23/18 16:15 Dose: Not Given Dextrose (Dextrose 50% Inj) 0 ml IV STAT PRN; Protocol PRN Reason: Hypoglycemia Protocol Dextrose (Glutose 15) 0 gm PO ONCE PRN; Protocol PRN Reason: Hypoglycemia Protocol Docusate Sodium (Colace) 100 mg PO BID [facility] Last Admin: 09/24/18 09:19 Dose: 100 mg Enoxaparin Sodium (Lovenox) 70 mg SC HS [facility]; Protocol Last Admin: 09/23/18 22:14 Dose: 70 mg Ergocalciferol (Drisdol 50,000 Intl Units Cap) 1 cap PO QWK [facility] Last Admin: 09/21/18 09:01 Dose: 1 cap Glucagon (Glucagen Diagnostic Kit) 0 mg IM STAT PRN; Protocol PRN Reason: Hypoglycemia Protocol Vancomycin HCl 1 gm/ Sodium (Chloride) 250 mls @ 166.667 mls/hr IVPB DAILY [facility]; Protocol Last Admin: 09/24/18 09:23 Dose: 166.667 mls/hr Meropenem 1 gm/ Sodium (Chloride) 100 mls @ 100 mls/hr IVPB Q8 [facility]; Protocol Last Admin: 09/24/18 09:25 Dose: 100 mls/hr Insulin Detemir (Levemir) 20 units SC HS [facility] Last Admin: 09/23/18 22:40 Dose: 20 u Insulin Human Lispro (Humalog) 0 units SC ACCU-CHECK [facility]; Protocol Last Admin: 09/24/18 12:52 Dose: 2 unit Mirtazapine (Remeron) 15 mg PO HS [facility] Last Admin: 09/23/18 22:15 Dose: 15 mg Montelukast Sodium (Singulair) 10 mg PO DAILY [facility] Last Admin: 09/24/18 09:18 Dose: 10 mg Ondansetron HCl (Zofran Odt) 4 mg PO Q8H PRN PRN Reason: Nausea/Vomiting Oxycodone/Acetaminophen (Percocet 5/325 Mg Tab) 1 tab PO Q4 PRN PRN Reason: Pain, severe (8-10) Stop: 09/26/18 19:19 Last Admin: 09/24/18 05:07 Dose: 1 tab Pantoprazole Sodium (Protonix Ec Tab) 40 mg PO DAILY [facility] Last Admin: 09/24/18 09:22 Dose: 40 mg Pregabalin (Lyrica) 50 mg PO TID [facility] Last Admin: 09/24/18 12:56 Dose: 50 mg Pregabalin (Lyrica) 50 mg PO HS [facility] Last Admin: 09/23/18 22:15 Dose: 50 mg - Labs Labs: 09/24/18 05:30 09/24/18 05:30 PT 12.6 Seconds (9.8-13.1) 09/20/18 18:30 INR 1.1 09/20/18 18:30 APTT 35.9 Seconds (25.6-37.1) 09/20/18 18:30 Attending/Attestation - Attestation I have personally seen and examined this patient.: Yes I have fully participated in the care of the patient.: Yes I have reviewed all pertinent clinical information, including history, physical exam and plan: Yes Notes (Text): 09/24/18 13:43 agree with findings and plan as above. patient to be evaluated by dr. shabazz prior to podiatry procedure.
--- NOTE | 2018-09-24 15:37 | CP.PCM.PN ---
Subjective - Date & Time of Evaluation Date of Evaluation: 09/24/18 Time of Evaluation: 15:34 - Subjective Subjective: Podiatry consult note for attending Dr Marks: 78 y/o female patient seen and evaluated in the bedside for R hallux infected ulcer and cellulitis. Patient's daughter present at bedside. Patient reports she had a fever overnight, and complains of chills at this time. Patient states that she has mild pain in her ulcer site at the R big toe. She denies any other acute pedal complaints at this time. Objective - Vital Signs/Intake and Output Vital Signs (last 24 hours): Temp Pulse Resp BP Pulse Ox 97.4 F L 89 20 146/66 99 09/24/18 08:52 09/24/18 08:52 09/24/18 08:52 09/24/18 09:18 09/24/18 08:52 - Medications Medications: Current Medications Acetaminophen (Tylenol 325mg Tab) 650 mg PO Q4 PRN PRN Reason: Fever >100.4 F Last Admin: 09/22/18 01:06 Dose: 650 mg Albuterol/Ipratropium (Duoneb 3 Mg/0.5 Mg (3 Ml) Ud) 3 ml INH RQ4 PRN PRN Reason: Shortness of Breath Last Admin: 09/24/18 14:33 Dose: 3 ml Amlodipine Besylate (Norvasc) 10 mg PO DAILY [facility] Last Admin: 09/24/18 09:18 Dose: 10 mg Atorvastatin Calcium (Lipitor) 40 mg PO DAILY [facility] Last Admin: 09/24/18 09:16 Dose: 40 mg Benzonatate (Tessalon Perles) 100 mg PO Q8 PRN PRN Reason: Cough Last Admin: 09/24/18 09:15 Dose: 100 mg Cyclobenzaprine HCl (Flexeril) 5 mg PO TID [facility] Last Admin: 09/23/18 16:15 Dose: Not Given Dextrose (Dextrose 50% Inj) 0 ml IV STAT PRN; Protocol PRN Reason: Hypoglycemia Protocol Dextrose (Glutose 15) 0 gm PO ONCE PRN; Protocol PRN Reason: Hypoglycemia Protocol Docusate Sodium (Colace) 100 mg PO BID [facility] Last Admin: 09/24/18 09:19 Dose: 100 mg Enoxaparin Sodium (Lovenox) 70 mg SC HS [facility]; Protocol Last Admin: 09/23/18 22:14 Dose: 70 mg Ergocalciferol (Drisdol 50,000 Intl Units Cap) 1 cap PO QWK [facility] Last Admin: 09/21/18 09:01 Dose: 1 cap Glucagon (Glucagen Diagnostic Kit) 0 mg IM STAT PRN; Protocol PRN Reason: Hypoglycemia Protocol Vancomycin HCl 1 gm/ Sodium (Chloride) 250 mls @ 166.667 mls/hr IVPB DAILY [facility]; Protocol Last Admin: 09/24/18 09:23 Dose: 166.667 mls/hr Meropenem 1 gm/ Sodium (Chloride) 100 mls @ 100 mls/hr IVPB Q8 [facility]; Protocol Last Admin: 09/24/18 09:25 Dose: 100 mls/hr Insulin Detemir (Levemir) 20 units SC HS [facility] Last Admin: 09/23/18 22:40 Dose: 20 u Insulin Human Lispro (Humalog) 0 units SC ACCU-CHECK [facility]; Protocol Last Admin: 09/24/18 12:52 Dose: 2 unit Mirtazapine (Remeron) 15 mg PO HS [facility] Last Admin: 09/23/18 22:15 Dose: 15 mg Montelukast Sodium (Singulair) 10 mg PO DAILY [facility] Last Admin: 09/24/18 09:18 Dose: 10 mg Ondansetron HCl (Zofran Odt) 4 mg PO Q8H PRN PRN Reason: Nausea/Vomiting Oxycodone/Acetaminophen (Percocet 5/325 Mg Tab) 1 tab PO Q4 PRN PRN Reason: Pain, severe (8-10) Stop: 09/26/18 19:19 Last Admin: 09/24/18 14:57 Dose: 1 tab Pantoprazole Sodium (Protonix Ec Tab) 40 mg PO DAILY [facility] Last Admin: 09/24/18 09:22 Dose: 40 mg Pregabalin (Lyrica) 50 mg PO TID [facility] Last Admin: 09/24/18 12:56 Dose: 50 mg Pregabalin (Lyrica) 50 mg PO HS [facility] Last Admin: 09/23/18 22:15 Dose: 50 mg - Labs Labs: 09/24/18 05:30 09/24/18 05:30 PT 12.6 Seconds (9.8-13.1) 09/20/18 18:30 INR 1.1 09/20/18 18:30 APTT 35.9 Seconds (25.6-37.1) 09/20/18 18:30 - Constitutional Appears: Well, Non-toxic, No Acute Distress - Head Exam Head Exam: ATRAUMATIC, NORMOCEPHALIC - Extremities Exam Additional comments: B/l LE focused exam: VASC: R DP pulses very faintly palpable R PT pulse is palpable 1/4, L DP/PT 2/4. Cap refill almost 3 sec to all digits. Temp gradient warm to warmer on the R side and warm to cool on the left side from proximal to distal. Non pitting edema noted on the right foot up to the ankle. Erythema extending from the R hallux to the R 1st MPJ. Small superficial varicosities noted to the L foot and ankle NEURO: Gross and Protective sensation are grossly diminished. DERM: an ulcer measuring 1.2X1.2X0.3cm noted in the nail bed of the R hallux. negative purulent discharge, positive probe to bone, No malodor, No tracking or undermining. Base is granular: fibrotic 50:50 with black eschar covering the tip of the toe. improving Erythema R hallux to the R 1st MPJ. Positive clinical signs of active infection. MSK: Mild pain to palpation of the R hallux. Muscle power intact 5/5 to all groups. - Neurological Exam Neurological Exam: Alert, Awake, Oriented x3 - Psychiatric Exam Psychiatric exam: Normal Affect, Normal Mood Assessment and Plan - Assessment and Plan (Free Text) Assessment: 78 y/o female patient seen and evaluated in the bedside for R hallux infected ulcer and cellulitis. Plan: Patient seen and evaluated in bedside Discussed with attending Dr. Marks Labs and vitals reviewed- febrile, WBCs 7.8 (09/24) Wound Cx: E. Coli, Corneybacterium species R foot X-ray: Soft tissue swelling without acute articular or osseous anomalies. R foot MRI: mild inflammation at site of ulceration, despite motion artifact, no definite evidence of osteomyelitis is appreciated, mild thinning of skin RLE arterial duplex: Inflow disease with high common femoral artery flow, R common femoral artery and SFA have atherosclerotic disease with areas of narrowing and stenosis. Flow is identified in the popliteal, posterior tibial and DP arteries. ESR: 92 (12/28/18) CRP: 18.30 Wound dressed with SSD and DSD Patient is on Vanco/Zosyn ID consulted: recommendations appreciated Vascular sx consulted: all recommendations appreciated Patient is cleared for wound debridement by Dr. Zavala Podiatry will perform bedside wound debridement on Monday with Dr. Marks Patient to ambulate in the surgical shoe all the times Podiatry will continue to follow up the patient while in house
[2018-09-24] MEDS ORDERED: Silver Sulfadiazine 1% Cream (20 gm) TOP SCH (15:45)
[2018-09-24] MEDS: Silver Sulfadiazine 1% CREAM (50 gm) TOP SCH (17:24)
[2018-09-24] MEDS: Enoxaparin 80 mg Syringe SC SCH (21:06)
[2018-09-24] MEDS: Insulin Detemir 100 Units/ml Inj SC SCH (21:57)
[2018-09-25] MEDS: Meropenem 1 GM in Sodium Chloride 0.9% 100 ML IVPB SCH ×3 (01:44→17:23)
[2018-09-25 06:55] LABS: HEMOGLOBIN 8.2 g/dL (12.0-16.0); MEAN CELL VOLUME 86.2 fl (81.0-99.0); MEAN CORPUSCULAR HEMOGLOBIN 28.3 pg (27.0-31.0); MEAN CORPUSCULAR HGB CONC 32.8 g/dL (33.0-37.0); RBC 2.9 Mil/uL (3.80-5.20); WHITE BLOOD COUNT 7.2 K/uL (4.8-10.8)
[2018-09-25] MEDS: Albuterol-Ipratrop 3 mg / 0.5 (3 ml) UD INH PRN (07:07)
[2018-09-25 07:35] LABS: ALBUMIN 3.6 g/dL (3.5-5.0); ALT/SGPT 23 U/L (9-52); AST/SGOT 23 U/L (14-36); BLOOD UREA NITROGEN 18 mg/dl (7-17); CALCIUM 9.2 mg/dL (8.4-10.2); GFR NON-AFRICAN AMERICAN 43
[2018-09-25] MEDS: Silver Sulfadiazine 1% CREAM (50 gm) TOP SCH (08:55)
[2018-09-25] MEDS: Pantoprazole 40 mg EC Tab PO SCH (08:56)
[2018-09-25] MEDS: Insulin Lispro (humaLOG) 100 Units/ml Inj SC SCH ×3 (08:57→17:20)
[2018-09-25] MEDS ORDERED: Lidocaine 1% Inj (20ml) IJ ONE (10:42)
--- NOTE | 2018-09-25 10:42 | CP.PCM.PN ---
Subjective - Date & Time of Evaluation Date of Evaluation: 09/25/18 Time of Evaluation: 10:41 - Subjective Subjective: Podiatry consult note for attending Dr Marks: 78 y/o female patient seen and evaluated in the bedside for R hallux infected ulcer and cellulitis. Patient's grand-daughter present at bedside. Patient states that she has mild pain in her ulcer site at the R big toe. She denies any other acute pedal complaints at this time. Objective - Vital Signs/Intake and Output Vital Signs (last 24 hours): Temp Pulse Resp BP Pulse Ox 97.6 F 83 19 146/78 100 09/25/18 07:43 09/25/18 08:56 09/25/18 07:43 09/25/18 08:56 09/25/18 07:43 - Medications Medications: Current Medications Acetaminophen (Tylenol 325mg Tab) 650 mg PO Q4 PRN PRN Reason: Fever >100.4 F Last Admin: 09/22/18 01:06 Dose: 650 mg Albuterol/Ipratropium (Duoneb 3 Mg/0.5 Mg (3 Ml) Ud) 3 ml INH RQ4 PRN PRN Reason: Shortness of Breath Last Admin: 09/25/18 07:07 Dose: 3 ml Amlodipine Besylate (Norvasc) 10 mg PO DAILY [facility] Last Admin: 09/25/18 08:56 Dose: 10 mg Atorvastatin Calcium (Lipitor) 40 mg PO DAILY [facility] Last Admin: 09/25/18 08:56 Dose: 40 mg Benzonatate (Tessalon Perles) 100 mg PO Q8 PRN PRN Reason: Cough Last Admin: 09/25/18 06:50 Dose: 100 mg Cyclobenzaprine HCl (Flexeril) 5 mg PO TID [facility] Last Admin: 09/23/18 16:15 Dose: Not Given Dextrose (Dextrose 50% Inj) 0 ml IV STAT PRN; Protocol PRN Reason: Hypoglycemia Protocol Dextrose (Glutose 15) 0 gm PO ONCE PRN; Protocol PRN Reason: Hypoglycemia Protocol Docusate Sodium (Colace) 100 mg PO BID [facility] Last Admin: 09/25/18 08:55 Dose: 100 mg Enoxaparin Sodium (Lovenox) 70 mg SC HS [facility]; Protocol Last Admin: 09/24/18 21:06 Dose: 70 mg Ergocalciferol (Drisdol 50,000 Intl Units Cap) 1 cap PO QWK [facility] Last Admin: 09/21/18 09:01 Dose: 1 cap Glucagon (Glucagen Diagnostic Kit) 0 mg IM STAT PRN; Protocol PRN Reason: Hypoglycemia Protocol Vancomycin HCl 1 gm/ Sodium (Chloride) 250 mls @ 166.667 mls/hr IVPB DAILY [facility]; Protocol Last Admin: 09/25/18 08:54 Dose: 166.667 mls/hr Meropenem 1 gm/ Sodium (Chloride) 100 mls @ 100 mls/hr IVPB Q8 [facility]; Protocol Last Admin: 09/25/18 08:54 Dose: 100 mls/hr Insulin Detemir (Levemir) 20 units SC HS [facility] Last Admin: 09/24/18 21:57 Dose: 20 u Insulin Human Lispro (Humalog) 0 units SC ACCU-CHECK [facility]; Protocol Last Admin: 09/25/18 08:57 Dose: 3 unit Mirtazapine (Remeron) 15 mg PO HS [facility] Last Admin: 09/24/18 21:06 Dose: 15 mg Montelukast Sodium (Singulair) 10 mg PO DAILY [facility] Last Admin: 09/25/18 08:56 Dose: 10 mg Ondansetron HCl (Zofran Odt) 4 mg PO Q8H PRN PRN Reason: Nausea/Vomiting Last Admin: 09/25/18 08:56 Dose: 4 mg Oxycodone/Acetaminophen (Percocet 5/325 Mg Tab) 1 tab PO Q4 PRN PRN Reason: Pain, severe (8-10) Stop: 09/26/18 19:19 Last Admin: 09/24/18 21:10 Dose: 1 tab Pantoprazole Sodium (Protonix Ec Tab) 40 mg PO DAILY [facility] Last Admin: 09/25/18 08:56 Dose: 40 mg Pregabalin (Lyrica) 50 mg PO TID [facility] Last Admin: 09/25/18 09:04 Dose: 50 mg Pregabalin (Lyrica) 50 mg PO HS [facility] Last Admin: 09/24/18 21:06 Dose: 50 mg Silver Sulfadiazine (Silvadene 1% 50 Gm) 1 applic TOP DAILY [facility] Last Admin: 09/25/18 08:55 Dose: 1 applic - Labs Labs: 09/25/18 05:46 09/25/18 05:46 PT 12.6 Seconds (9.8-13.1) 09/20/18 18:30 INR 1.1 09/20/18 18:30 APTT 35.9 Seconds (25.6-37.1) 09/20/18 18:30 - Constitutional Appears: Well, Non-toxic, No Acute Distress - Head Exam Head Exam: ATRAUMATIC, NORMOCEPHALIC - Extremities Exam Additional comments: B/l LE focused exam: VASC: R DP pulses very faintly palpable R PT pulse is palpable 1/4, L DP/PT 2/4. Cap refill almost 3 sec to all digits. Temp gradient warm to warmer on the R side and warm to cool on the left side from proximal to distal. Non pitting edema noted on the right foot up to the ankle. Erythema extending from the R hallux to the R 1st MPJ. Small superficial varicosities noted to the L foot and ankle NEURO: Gross and Protective sensation are grossly diminished. DERM: an ulcer measuring 1.2X1.2X0.3cm noted in the nail bed of the R hallux. negative purulent discharge, positive probe to bone, No malodor, No tracking or undermining. Base is granular: fibrotic 50:50 with black eschar covering the tip of the toe. improving Erythema R hallux to the R 1st MPJ. Positive clinical signs of active infection. MSK: Mild pain to palpation of the R hallux. Muscle power intact 5/5 to all groups. - Neurological Exam Neurological Exam: Alert, Awake, Oriented x3 - Psychiatric Exam Psychiatric exam: Normal Affect, Normal Mood Assessment and Plan - Assessment and Plan (Free Text) Assessment: 78 y/o female patient seen and evaluated in the bedside for R hallux infected ulcer and cellulitis. Plan: Patient seen and evaluated in bedside Discussed with attending Dr. Marks Labs and vitals reviewed- febrile, WBCs 7.8 (09/24) Wound Cx: E. Coli, Corneybacterium species R foot X-ray: Soft tissue swelling without acute articular or osseous anomalies. R foot MRI: mild inflammation at site of ulceration, despite motion artifact, no definite evidence of osteomyelitis is appreciated, mild thinning of skin RLE arterial duplex: Inflow disease with high common femoral artery flow, R common femoral artery and SFA have atherosclerotic disease with areas of narrowing and stenosis. Flow is identified in the popliteal, posterior tibial and DP arteries. ESR: 92 (09/21/18) CRP: 18.30 Wound dressed with SSD and DSD Patient is on Vanco/Zosyn ID consulted: recommendations appreciated Vascular sx consulted: all recommendations appreciated Patient is cleared for wound debridement by Dr. Zavala Podiatry will perform bedside wound debridement on Monday09/26/[address] Marks Patient to ambulate in the surgical shoe all the times Podiatry will continue to follow up the patient while in house
--- NOTE | 2018-09-25 11:17 | CP.PCM.PN ---
Subjective - Date & Time of Evaluation Date of Evaluation: 09/25/18 Time of Evaluation: 10:47 - Subjective Subjective: 78 y/o F patient Seen at bedside for R LE PVD and R big toe ulceration, Patient was lying in bed, no acute distress. C/o intermittent dry cough that is chronic. Denies leg pain. Patient denies any overnight F or C. Wound Cx + for ESBL E .Coli. Contact precautions in place. Patient denies CP, vomiting, nausea, dysuria or diarrhea. Patient states that she is having productive cough with much flagm. Objective - Vital Signs/Intake and Output Vital Signs (last 24 hours): Temp Pulse Resp BP Pulse Ox 97.6 F 83 19 146/78 100 09/25/18 07:43 09/25/18 08:56 09/25/18 07:43 09/25/18 08:56 09/25/18 07:43 - Medications Medications: Current Medications Acetaminophen (Tylenol 325mg Tab) 650 mg PO Q4 PRN PRN Reason: Fever >100.4 F Last Admin: 09/22/18 01:06 Dose: 650 mg Albuterol/Ipratropium (Duoneb 3 Mg/0.5 Mg (3 Ml) Ud) 3 ml INH RQ4 PRN PRN Reason: Shortness of Breath Last Admin: 09/25/18 07:07 Dose: 3 ml Amlodipine Besylate (Norvasc) 10 mg PO DAILY [facility] Last Admin: 09/25/18 08:56 Dose: 10 mg Atorvastatin Calcium (Lipitor) 40 mg PO DAILY [facility] Last Admin: 09/25/18 08:56 Dose: 40 mg Benzonatate (Tessalon Perles) 100 mg PO Q8 PRN PRN Reason: Cough Last Admin: 09/25/18 06:50 Dose: 100 mg Cyclobenzaprine HCl (Flexeril) 5 mg PO TID [facility] Last Admin: 09/23/18 16:15 Dose: Not Given Dextrose (Dextrose 50% Inj) 0 ml IV STAT PRN; Protocol PRN Reason: Hypoglycemia Protocol Dextrose (Glutose 15) 0 gm PO ONCE PRN; Protocol PRN Reason: Hypoglycemia Protocol Docusate Sodium (Colace) 100 mg PO BID [facility] Last Admin: 09/25/18 08:55 Dose: 100 mg Enoxaparin Sodium (Lovenox) 70 mg SC HS [facility]; Protocol Last Admin: 09/24/18 21:06 Dose: 70 mg Ergocalciferol (Drisdol 50,000 Intl Units Cap) 1 cap PO QWK [facility] Last Admin: 09/21/18 09:01 Dose: 1 cap Glucagon (Glucagen Diagnostic Kit) 0 mg IM STAT PRN; Protocol PRN Reason: Hypoglycemia Protocol Vancomycin HCl 1 gm/ Sodium (Chloride) 250 mls @ 166.667 mls/hr IVPB DAILY [facility]; Protocol Last Admin: 09/25/18 08:54 Dose: 166.667 mls/hr Meropenem 1 gm/ Sodium (Chloride) 100 mls @ 100 mls/hr IVPB Q8 [facility]; Protocol Last Admin: 09/25/18 08:54 Dose: 100 mls/hr Insulin Detemir (Levemir) 20 units SC [facility] Last Admin: 09/24/18 21:57 Dose: 20 u Insulin Human Lispro (Humalog) 0 units SC ACCU-CHECK [facility]; Protocol Last Admin: 09/25/18 08:57 Dose: 3 unit Mirtazapine (Remeron) 15 mg PO [facility] Last Admin: 09/24/18 21:06 Dose: 15 mg Montelukast Sodium (Singulair) 10 mg PO DAILY [facility] Last Admin: 09/25/18 08:56 Dose: 10 mg Ondansetron HCl (Zofran Odt) 4 mg PO Q8H PRN PRN Reason: Nausea/Vomiting Last Admin: 09/25/18 08:56 Dose: 4 mg Oxycodone/Acetaminophen (Percocet 5/325 Mg Tab) 1 tab PO Q4 PRN PRN Reason: Pain, severe (8-10) Stop: 09/26/18 19:19 Last Admin: 09/24/18 21:10 Dose: 1 tab Pantoprazole Sodium (Protonix Ec Tab) 40 mg PO DAILY [facility] Last Admin: 09/25/18 08:56 Dose: 40 mg Pregabalin (Lyrica) 50 mg PO TID [facility] Last Admin: 09/25/18 09:04 Dose: 50 mg Pregabalin (Lyrica) 50 mg PO [facility] Last Admin: 09/24/18 21:06 Dose: 50 mg Silver Sulfadiazine (Silvadene 1% 50 Gm) 1 applic TOP DAILY [facility] Last Admin: 09/25/18 08:55 Dose: 1 applic - Labs Labs: 09/25/18 05:46 09/25/18 05:46 PT 12.6 Seconds (9.8-13.1) 09/20/18 18:30 INR 1.1 09/20/18 18:30 APTT 35.9 Seconds (25.6-37.1) 09/20/18 18:30 - Constitutional Appears: Well, Non-toxic, No Acute Distress - Head Exam Head Exam: ATRAUMATIC, NORMOCEPHALIC - Eye Exam Eye Exam: EOMI, Normal appearance, PERRL Pupil Exam: NORMAL ACCOMODATION, PERRL - ENT Exam ENT Exam: Mucous Membranes Moist - Neck Exam Neck Exam: Full ROM, Normal Inspection - Respiratory Exam Respiratory Exam: Wheezes (Expirator wheexes allover the chest) - Cardiovascular Exam Cardiovascular Exam: REGULAR RHYTHM, RRR - GI/Abdominal Exam GI & Abdominal Exam: Soft, Normal Bowel Sounds - Extremities Exam Extremities Exam: Full ROM Additional comments: ulceration noted on the nail bed of the R hallux with black eschar covering the tip of the R hallux. - Back Exam Back Exam: NORMAL INSPECTION - Neurological Exam Neurological Exam: Alert, Awake, Oriented x3 Neuro motor strength exam: Left Upper Extremity: 5, Right Upper Extremity: 5, Left Lower Extremity: 5, Right Lower Extremity: 5 - Skin Skin Exam: Warm Assessment and Plan - Assessment and Plan (Free Text) Assessment: 78 years old female brought to the ED because of worsening pain to the right lower extremity with cold right foot. Plan: R 1st toe chronic ulcer likely arterial PVD with Partial Right Femoral Artery occlusion No definite OM on MRI of the foot Wound Cx + for ESBL E.Coli. 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 Vascular consult Dr Zavala, recs appreciated Podiatry consult, recs appreciated. Bedside debridement by podiatry planned for tomorrow afternoon. Lovenox will be held tomorrow. ID consult, recs appreciated, Dr Barclay Lovenox therapeutic dose, renal adjusted. Brellinta stopped for now in case dianne ent needs Sx procedure for toe. Dr Zavala agreed. Pain management. C/w Lyrica Fever Afebrile overnight Acute Poss due to wound infection. UA WNL Repeat CXR no active disease C/w IV abx BCx x2 neg ESBL, E.Coli infection Contact precautions ID on board C/w IV Meropenen CKD III chronic, stable BUN/creat stable Meds adjusted IDDM Chronic Stable. Accuchecks 200s HbA1c 7.8 on 05/21/18 Lispro Insulin sliding scale according to sliding scale C/w Levemir to 20 mg HS Monitor HTN Chronic Controlled C/w Norvasc for now Monitor COPD Chronic Stable Solumedrol 60 Q12 Mucinx 1 tab BID C/W O2 Duonebs Q4 Anemia Chronic Likely chronic disease anemia Stable Monitor DVT prophylaxis: On Lovenox therapeutic, renal dose
[2018-09-25] MEDS ORDERED: methylPREDNISolone 60 MG in Sodium Chloride 0.9% 50 ML IVPB SCH (11:30)
[2018-09-25] MEDS: Albuterol-Ipratrop 3 mg / 0.5 (3 ml) UD INH SCH ×3 (11:34→19:05)
[2018-09-25] MEDS: guaiFENesin-DM 600-30 mg ER Tab PO SCH ×2 (12:49→17:20)
[2018-09-25] MEDS: Oxycodone/Acetaminophen 5/325 mg Tab PO PRN (12:55)
--- NOTE | 2018-09-25 16:10 | RAD ---
Date of service: 09/25/2018 HISTORY: wheezing COMPARISON: Comparison chest 09/23/2018 FINDINGS: LUNGS: Previously suspected minor chronic compensated pulmonary venous congestive changes slightly improved.. PLEURA: No significant pleural effusion identified, no pneumothorax apparent. CARDIOVASCULAR: . Mild aortic atherosclerotic calcification present. Heart size upper limits of normal/borderline enlarged. OSSEOUS STRUCTURES: Multilevel degenerative spondylosis of the thoracic spine. VISUALIZED UPPER ABDOMEN: Normal. OTHER FINDINGS: None. IMPRESSION: Previously suspected mild chronic compensated pulmonary venous congestive changes improved
--- NOTE | 2018-09-25 16:59 | CP.PCM.CON ---
History of Present Illness - History of Present Illness History of Present Illness: Consulatation for evaluation of PVOD HPI: 78-year-old female with past medical history significant for right lower extremity acute limb ischemia status post complication with cardiac catheterization who underwent an emergent revascularization procedure about 3 months ago presented with complains of worsening right lower extremity pain and discomfort was subsequently taken back where she was noted to have reocclusion of her prior atherectomy site subsequently underwent a successful revascularization procedure continued to have severe excruciating pains from possible ischemia reperfusion injury is now presenting with worsening ulcer at the tip of her big toe which was noted by podiatry. Currently her foot is warm but she continues to have excruciating pain secondary to combined neuropathy and reperfusion injury. Past medical history as stated above significant for hypertension diabetes neuropathy Graves' disease pneumonia peripheral vascular occlusive disease asthma arthritis anxiety depression. Past surgical history significant for atherectomy and TRAUMA THERAPIST right SFA and DCB of right common femoral artery social history remote history of smoking no alcohol or illicit drug use lives with daughter. Family history noncontributory allergies allergic to aspirin. Medications reviewed as stated above. Review of Systems - Review of Systems Systems not reviewed;Unavailable: Acuity of Condition - Constitutional Constitutional: As Per HPI - EENT Eyes: As Per HPI Ears: As Per HPI Nose/Mouth/Throat: As Per HPI - Breasts Breasts: As Per HPI - Cardiovascular Cardiovascular: As Per HPI - Respiratory Respiratory: As Per HPI - Gastrointestinal Gastrointestinal: As Per HPI - Genitourinary Genitourinary: As Per HPI - Reproductive: Female Reproductive:Female: As Per HPI - Menstruation Menstruation: As Per HPI - Musculoskeletal Musculoskeletal: As Per HPI - Integumentary Integumentary: As Per HPI - Neurological Neurological: As Per HPI - Psychiatric Psychiatric: As Per HPI - Endocrine Endocrine: As Per HPI - Hematologic/Lymphatic Hematologic: As Per HPI Past Patient History - Infectious Disease Hx of Infectious Diseases: None - Tetanus Immunizations Tetanus Immunization: Unknown - Past Medical History & Family History Past Medical History?: Yes - Past Social History Smoking Status: Former Smoker Alcohol: None Drugs: Denies Home Situation {Lives}: With Family - CARDIAC Hx Congestive Heart Failure: Yes Hx Hypercholesterolemia: Yes Hx Hypertension: Yes - PULMONARY Hx Asthma: Yes Hx Chronic Obstructive Pulmonary Disease (COPD): No (Daughter denies) Hx Pneumonia: Yes (Daughter denies) - NEUROLOGICAL Hx Neurological Disorder: Yes - HEENT Hx HEENT Problems: Yes (Allergic Rhinitis.) - RENAL Hx Chronic Kidney Disease: No - ENDOCRINE/METABOLIC Hx Hypothyroidism: No - HEMATOLOGICAL/ONCOLOGICAL Hx Anemia: Yes Hx Human Immunodeficiency Virus (HIV): No - INTEGUMENTARY Hx Dermatological Problems: No - MUSCULOSKELETAL/RHEUMATOLOGICAL Hx Arthritis: Yes Hx Osteoporosis: Yes - GASTROINTESTINAL Hx Gastrointestinal Disorders: No - GENITOURINARY/GYNECOLOGICAL Hx Genitourinary Disorders: No - PSYCHIATRIC Hx Anxiety: Yes Hx Depression: Yes - SURGICAL HISTORY Hx Surgeries: Yes Hx Angiogram: Yes (Angiogram lower extremities Dr Rodriges) Hx Orthopedic Surgery: Yes (left arm surgery) Other/Comment: R Femoral atherectomy and angioplasty Dr Zavala - ANESTHESIA Hx Anesthesia: Yes Hx Anesthesia Reactions: No Hx Malignant Hyperthermia: No Meds Allergies/Adverse Reactions: Allergies Allergy/AdvReac Type Severity Reaction Status Date / Time aspirin AdvReac RASH Verified 09/20/18 16:08 - Medications Medications: Current Medications Acetaminophen (Tylenol 325mg Tab) 650 mg PO Q4 PRN PRN Reason: Fever >100.4 F Last Admin: 09/22/18 01:06 Dose: 650 mg Albuterol/Ipratropium (Duoneb 3 Mg/0.5 Mg (3 Ml) Ud) 3 ml INH RQ4 [facility] Last Admin: 09/25/18 15:24 Dose: 3 ml Amlodipine Besylate (Norvasc) 10 mg PO DAILY [facility] Last Admin: 09/25/18 08:56 Dose: 10 mg Atorvastatin Calcium (Lipitor) 40 mg PO DAILY [facility] Last Admin: 09/25/18 08:56 Dose: 40 mg Benzonatate (Tessalon Perles) 100 mg PO Q8 PRN PRN Reason: Cough Last Admin: 09/25/18 06:50 Dose: 100 mg Cyclobenzaprine HCl (Flexeril) 5 mg PO TID [facility] Last Admin: 09/23/18 16:15 Dose: Not Given Dextrose (Dextrose 50% Inj) 0 ml IV STAT PRN; Protocol PRN Reason: Hypoglycemia Protocol Dextrose (Glutose 15) 0 gm PO ONCE PRN; Protocol PRN Reason: Hypoglycemia Protocol Docusate Sodium (Colace) 100 mg PO BID [facility] Last Admin: 09/25/18 08:55 Dose: 100 mg Enoxaparin Sodium (Lovenox) 70 mg SC HS [facility]; Protocol Last Admin: 09/24/18 21:06 Dose: 70 mg Ergocalciferol (Drisdol 50,000 Intl Units Cap) 1 cap PO QWK [facility] Last Admin: 09/21/18 09:01 Dose: 1 cap Glucagon (Glucagen Diagnostic Kit) 0 mg IM STAT PRN; Protocol PRN Reason: Hypoglycemia Protocol Guaifenesin/Dextromethorphan (Mucinex-Dm 600-30 Mg) 1 tab PO BID [facility] Last Admin: 09/25/18 12:49 Dose: 1 tab Vancomycin HCl 1 gm/ Sodium (Chloride) 250 mls @ 166.667 mls/hr IVPB DAILY [facility]; Protocol Last Admin: 09/25/18 08:54 Dose: 166.667 mls/hr Meropenem 1 gm/ Sodium (Chloride) 100 mls @ 100 mls/hr IVPB Q8 [facility]; Protocol Last Admin: 09/25/18 08:54 Dose: 100 mls/hr Insulin Detemir (Levemir) 20 units SC [facility] Last Admin: 09/24/18 21:57 Dose: 20 u Insulin Human Lispro (Humalog) 0 units SC ACCU-CHECK [facility]; Protocol Last Admin: 09/25/18 12:48 Dose: 3 unit Methylprednisolone (Solu-Medrol) 60 mg IV Q12H [facility] Last Admin: 09/25/18 12:50 Dose: 60 mg Mirtazapine (Remeron) 15 mg PO HS [facility] Last Admin: 09/24/18 21:06 Dose: 15 mg Montelukast Sodium (Singulair) 10 mg PO DAILY [facility] Last Admin: 09/25/18 08:56 Dose: 10 mg Ondansetron HCl (Zofran Odt) 4 mg PO Q8H PRN PRN Reason: Nausea/Vomiting Last Admin: 09/25/18 08:56 Dose: 4 mg Oxycodone/Acetaminophen (Percocet 5/325 Mg Tab) 1 tab PO Q4 PRN PRN Reason: Pain, severe (8-10) Stop: 09/26/18 19:19 Last Admin: 09/25/18 12:55 Dose: 1 tab Pantoprazole Sodium (Protonix Ec Tab) 40 mg PO DAILY [facility] Last Admin: 09/25/18 08:56 Dose: 40 mg Pregabalin (Lyrica) 50 mg PO TID [facility] Last Admin: 09/25/18 14:43 Dose: 50 mg Pregabalin (Lyrica) 50 mg PO HS [facility] Last Admin: 09/24/18 21:06 Dose: 50 mg Silver Sulfadiazine (Silvadene 1% 50 Gm) 1 applic TOP DAILY [facility] Last Admin: 09/25/18 08:55 Dose: 1 applic Physical Exam - Constitutional Appears: Agitated, Chronically Ill - Head Exam Head Exam: ATRAUMATIC, NORMAL INSPECTION, NORMOCEPHALIC - Eye Exam Eye Exam: EOMI, Normal appearance, PERRL Pupil Exam: NORMAL ACCOMODATION, PERRL - ENT Exam ENT Exam: Mucous Membranes Moist, Normal Exam - Neck Exam Neck exam: Positive for: Normal Inspection - Respiratory Exam Respiratory Exam: Clear to Auscultation Bilateral, NORMAL BREATHING PATTERN - Cardiovascular Exam Cardiovascular Exam: REGULAR RHYTHM, RRR, +S1, +S2, Systolic Murmur - GI/Abdominal Exam GI & Abdominal Exam: Normal Bowel Sounds, Soft. absent: Tenderness - Extremities Exam Additional comments: right big toe ulcer - Back Exam Back exam: NORMAL INSPECTION - Neurological Exam Neurological exam: Alert, CN II-XII Intact, Normal Gait, Oriented x3, Reflexes Normal - Psychiatric Exam Psychiatric exam: Normal Affect, Normal Mood - Skin Skin Exam: Dry, Intact, Normal Color, Warm Results - Vital Signs Recent Vital Signs: Last Vital Signs Temp 98.1 F 09/25/18 16:36 Pulse 90 09/25/18 16:36 Resp 20 09/25/18 16:36 BP 134/70 09/25/18 16:36 Pulse Ox 99 09/25/18 16:36 - Labs Result Diagrams: 09/25/18 05:46 09/25/18 05:46 Labs: Laboratory Results - last 24 hr 09/24/18 09/25/18 09/25/18 21:36 05:29 05:46 WBC 7.2 RBC 2.90 L Hgb 8.2 L Hct 25.0 L MCV 86.2 MCH 28.3 MCHC 32.8 L RDW 14.0 Plt Count 290 Sodium Potassium Chloride Carbon Dioxide Anion Gap BUN Creatinine Est GFR ( Amer) Est GFR (Non-Af Amer) POC Glucose (mg/dL) 352 H 267 H Random Glucose Calcium Total Bilirubin AST ALT Alkaline Phosphatase Total Protein Albumin Globulin Albumin/Globulin Ratio 01/10/1309/25/18 09/25/18 05:46 11:02 15:27 WBC RBC Hgb Hct MCV MCH MCHC RDW Plt Count Sodium 140 Potassium 4.4 Chloride 108 H Carbon Dioxide 25 Anion Gap 11 BUN 18 H Creatinine 1.2 Est GFR ( Amer) 53 Est GFR (Non-Af Amer) 43 POC Glucose (mg/dL) 279 H 295 H Random Glucose 264 H Calcium 9.2 Total Bilirubin < 0.1 L AST 23 ALT 23 Alkaline Phosphatase 83 Total Protein 7.1 Albumin 3.6 Globulin 3.6 Albumin/Globulin Ratio 1.0 Assessment & Plan (1) Preop cardiovascular exam Status: Acute (2) Cellulitis and abscess of toe of right foot Status: Acute (3) Foot ulcer, right Status: Acute (4) Leg pain Status: Acute (5) PVD (peripheral vascular disease) Status: Acute Priority: High (6) Peripheral artery occlusion Status: Acute (7) Right leg pain Status: Acute Priority: High (8) COPD (chronic obstructive pulmonary disease) Status: Chronic Priority: Medium (9) HTN (hypertension) Status: Chronic Priority: Medium (10) S/P angioplasty Status: Chronic Priority: High
--- NOTE | 2018-09-25 17:05 | CP.PCM.PN ---
Subjective - Date & Time of Evaluation Date of Evaluation: 09/25/18 Time of Evaluation: 17:02 - Subjective Subjective: continues to have LE pain and discomfort foot is warm arterial duplex shows good flow Objective - Vital Signs/Intake and Output Vital Signs (last 24 hours): Temp Pulse Resp BP Pulse Ox 98.1 F 90 20 134/70 99 09/25/18 16:36 09/25/18 16:36 09/25/18 16:36 09/25/18 16:36 09/25/18 16:36 - Medications Medications: Current Medications Acetaminophen (Tylenol 325mg Tab) 650 mg PO Q4 PRN PRN Reason: Fever >100.4 F Last Admin: 09/22/18 01:06 Dose: 650 mg Albuterol/Ipratropium (Duoneb 3 Mg/0.5 Mg (3 Ml) Ud) 3 ml INH RQ4 [facility] Last Admin: 09/25/18 15:24 Dose: 3 ml Amlodipine Besylate (Norvasc) 10 mg PO DAILY [facility] Last Admin: 09/25/18 08:56 Dose: 10 mg Atorvastatin Calcium (Lipitor) 40 mg PO DAILY [facility] Last Admin: 09/25/18 08:56 Dose: 40 mg Benzonatate (Tessalon Perles) 100 mg PO Q8 PRN PRN Reason: Cough Last Admin: 09/25/18 06:50 Dose: 100 mg Cyclobenzaprine HCl (Flexeril) 5 mg PO TID [facility] Last Admin: 09/23/18 16:15 Dose: Not Given Dextrose (Dextrose 50% Inj) 0 ml IV STAT PRN; Protocol PRN Reason: Hypoglycemia Protocol Dextrose (Glutose 15) 0 gm PO ONCE PRN; Protocol PRN Reason: Hypoglycemia Protocol Docusate Sodium (Colace) 100 mg PO BID [facility] Last Admin: 09/25/18 08:55 Dose: 100 mg Enoxaparin Sodium (Lovenox) 70 mg SC HS [facility]; Protocol Last Admin: 09/24/18 21:06 Dose: 70 mg Ergocalciferol (Drisdol 50,000 Intl Units Cap) 1 cap PO QWK [facility] Last Admin: 09/21/18 09:01 Dose: 1 cap Glucagon (Glucagen Diagnostic Kit) 0 mg IM STAT PRN; Protocol PRN Reason: Hypoglycemia Protocol Guaifenesin/Dextromethorphan (Mucinex-Dm 600-30 Mg) 1 tab PO BID [facility] Last Admin: 09/25/18 12:49 Dose: 1 tab Vancomycin HCl 1 gm/ Sodium (Chloride) 250 mls @ 166.667 mls/hr IVPB DAILY [facility]; Protocol Last Admin: 09/25/18 08:54 Dose: 166.667 mls/hr Meropenem 1 gm/ Sodium (Chloride) 100 mls @ 100 mls/hr IVPB Q8 [facility]; Protocol Last Admin: 09/25/18 08:54 Dose: 100 mls/hr Insulin Detemir (Levemir) 20 units SC [facility] Last Admin: 09/24/18 21:57 Dose: 20 u Insulin Human Lispro (Humalog) 0 units SC ACCU-CHECK [facility]; Protocol Last Admin: 09/25/18 12:48 Dose: 3 unit Methylprednisolone (Solu-Medrol) 60 mg IV Q12H [facility] Last Admin: 09/25/18 12:50 Dose: 60 mg Mirtazapine (Remeron) 15 mg PO [facility] Last Admin: 09/24/18 21:06 Dose: 15 mg Montelukast Sodium (Singulair) 10 mg PO DAILY [facility] Last Admin: 09/25/18 08:56 Dose: 10 mg Ondansetron HCl (Zofran Odt) 4 mg PO Q8H PRN PRN Reason: Nausea/Vomiting Last Admin: 09/25/18 08:56 Dose: 4 mg Oxycodone/Acetaminophen (Percocet 5/325 Mg Tab) 1 tab PO Q4 PRN PRN Reason: Pain, severe (8-10) Stop: 09/26/18 19:19 Last Admin: 09/25/18 12:55 Dose: 1 tab Pantoprazole Sodium (Protonix Ec Tab) 40 mg PO DAILY [facility] Last Admin: 09/25/18 08:56 Dose: 40 mg Pregabalin (Lyrica) 50 mg PO TID [facility] Last Admin: 09/25/18 14:43 Dose: 50 mg Pregabalin (Lyrica) 50 mg PO HS [facility] Last Admin: 09/24/18 21:06 Dose: 50 mg Silver Sulfadiazine (Silvadene 1% 50 Gm) 1 applic TOP DAILY [facility] Last Admin: 09/25/18 08:55 Dose: 1 applic - Labs Labs: 09/25/18 05:46 09/25/18 05:46 PT 12.6 Seconds (9.8-13.1) 09/20/18 18:30 INR 1.1 09/20/18 18:30 APTT 35.9 Seconds (25.6-37.1) 09/20/18 18:30 - Constitutional Appears: Well, Agitated - Head Exam Head Exam: ATRAUMATIC, NORMAL INSPECTION, NORMOCEPHALIC - Eye Exam Eye Exam: EOMI, Normal appearance, PERRL Pupil Exam: NORMAL ACCOMODATION, PERRL - ENT Exam ENT Exam: Mucous Membranes Moist, Normal Exam - Neck Exam Neck Exam: Full ROM, Normal Inspection. absent: Lymphadenopathy - Respiratory Exam Respiratory Exam: Clear to Ausculation Bilateral, NORMAL BREATHING PATTERN - Cardiovascular Exam Cardiovascular Exam: REGULAR RHYTHM, +S1, +S2. absent: Murmur - GI/Abdominal Exam GI & Abdominal Exam: Soft, Normal Bowel Sounds. absent: Tenderness - Extremities Exam Extremities Exam: Full ROM, Normal Inspection. 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
[2018-09-25] MEDS ORDERED: Insulin Regular 100 units/ml SC STA (22:40)
[2018-09-25] MEDS: Insulin Detemir 100 Units/ml Inj SC SCH (22:57)
[2018-09-26] MEDS: Albuterol-Ipratrop 3 mg / 0.5 (3 ml) UD INH SCH ×7 (00:40→23:34)
[2018-09-26] MEDS: Meropenem 1 GM in Sodium Chloride 0.9% 100 ML IVPB SCH (01:06)
[2018-09-26] MEDS ORDERED: Insulin Regular 100 units/ml SC STA (05:16)
[2018-09-26] MEDS: Oxycodone/Acetaminophen 5/325 mg Tab PO PRN (06:11)
[2018-09-26] MEDS ORDERED: Insulin Regular 100 units/ml SC SCH (07:30)
[2018-09-26] MEDS ORDERED: Insulin Detemir 100 Units/ml Inj SC STA (08:49)
--- NOTE | 2018-09-26 09:54 | CP.PCM.PN ---
Subjective - Date & Time of Evaluation Date of Evaluation: 09/26/18 Time of Evaluation: 09:52 - Subjective Subjective: Id Note- pt. seen and examined today with her daughter at her bedside. Patient afebrile and no new events. as per pt's daughter pt. is expected to have further bedside debridement of the toe by podiatry doc later today. Objective - Vital Signs/Intake and Output Vital Signs (last 24 hours): Temp Pulse Resp BP Pulse Ox 97.7 F 106 H 20 180/62 H 99 09/26/18 08:22 09/26/18 08:22 09/26/18 08:22 09/26/18 08:22 09/26/18 08:22 - Medications Medications: Current Medications Acetaminophen (Tylenol 325mg Tab) 650 mg PO Q4 PRN PRN Reason: Fever >100.4 F Last Admin: 09/22/18 01:06 Dose: 650 mg Albuterol/Ipratropium (Duoneb 3 Mg/0.5 Mg (3 Ml) Ud) 3 ml INH RQ4 [facility] Last Admin: 09/26/18 07:31 Dose: 3 ml Amlodipine Besylate (Norvasc) 10 mg PO DAILY [facility] Last Admin: 09/25/18 08:56 Dose: 10 mg Atorvastatin Calcium (Lipitor) 40 mg PO DAILY [facility] Last Admin: 09/25/18 08:56 Dose: 40 mg Benzonatate (Tessalon Perles) 100 mg PO Q8 PRN PRN Reason: Cough Last Admin: 09/26/18 06:11 Dose: 100 mg Cyclobenzaprine HCl (Flexeril) 5 mg PO TID [facility] Last Admin: 09/23/18 16:15 Dose: Not Given Dextrose (Dextrose 50% Inj) 0 ml IV STAT PRN; Protocol PRN Reason: Hypoglycemia Protocol Dextrose (Glutose 15) 0 gm PO ONCE PRN; Protocol PRN Reason: Hypoglycemia Protocol Docusate Sodium (Colace) 100 mg PO BID [facility] Last Admin: 09/25/18 17:19 Dose: 100 mg Enoxaparin Sodium (Lovenox) 70 mg SC HS [facility]; Protocol Last Admin: 09/24/18 21:06 Dose: 70 mg Ergocalciferol (Drisdol 50,000 Intl Units Cap) 1 cap PO QWK [facility] Last Admin: 09/21/18 09:01 Dose: 1 cap Glucagon (Glucagen Diagnostic Kit) 0 mg IM STAT PRN; Protocol PRN Reason: Hypoglycemia Protocol Guaifenesin/Dextromethorphan (Mucinex-Dm 600-30 Mg) 1 tab PO BID [facility] Last Admin: 09/25/18 17:20 Dose: 1 tab Vancomycin HCl 1 gm/ Sodium (Chloride) 250 mls @ 166.667 mls/hr IVPB DAILY [facility]; Protocol Last Admin: 09/25/18 08:54 Dose: 166.667 mls/hr Meropenem 1 gm/ Sodium (Chloride) 100 mls @ 100 mls/hr IVPB Q8 [facility]; Protocol Last Admin: 09/26/18 01:06 Dose: 100 mls/hr Insulin Detemir (Levemir) 25 units SC HS [facility] Insulin Human Regular (Humulin R) 0 units SC ACHS [facility]; Protocol Methylprednisolone (Solu-Medrol) 40 mg IV Q12H [facility] Mirtazapine (Remeron) 15 mg PO HS [facility] Last Admin: 09/25/18 22:44 Dose: 15 mg Montelukast Sodium (Singulair) 10 mg PO DAILY [facility] Last Admin: 09/25/18 08:56 Dose: 10 mg Ondansetron HCl (Zofran Odt) 4 mg PO Q8H PRN PRN Reason: Nausea/Vomiting Last Admin: 09/25/18 08:56 Dose: 4 mg Oxycodone/Acetaminophen (Percocet 5/325 Mg Tab) 1 tab PO Q4 PRN PRN Reason: Pain, severe (8-10) Stop: 09/26/18 19:19 Last Admin: 09/26/18 06:11 Dose: 1 tab Pantoprazole Sodium (Protonix Ec Tab) 40 mg PO DAILY [facility] Last Admin: 09/25/18 08:56 Dose: 40 mg Pregabalin (Lyrica) 50 mg PO TID [facility] Last Admin: 09/25/18 17:29 Dose: 50 mg Pregabalin (Lyrica) 50 mg PO HS [facility] Last Admin: 09/25/18 22:44 Dose: 50 mg Silver Sulfadiazine (Silvadene 1% 50 Gm) 1 applic TOP DAILY [facility] Last Admin: 09/25/18 08:55 Dose: 1 applic - Labs Labs: - Additional Findings Additional findings: - Head Exam Head Exam: ATRAUMATIC - Eye Exam Eye Exam: EOMI - ENT Exam ENT Exam: Normal Oropharynx - Neck Exam Neck exam: Positive for: Full Rom - Respiratory Exam Respiratory Exam: Clear to Auscultation Bilateral, NORMAL BREATHING PATTERN - Cardiovascular Exam Cardiovascular Exam: RRR, +S1, +S2 - GI/Abdominal Exam GI & Abdominal Exam: Normal Bowel Sounds, Soft Additional comments: NT, ND - Extremities Exam Additional comments: right great toe anterior region nail bed with debrided nail bed , no more discharge, no malodor, minimal surrounding erythema and edema has improved alot - Neurological Exam Neurological exam: AAo x 3 Laboratory Results - last 72 hr 09/23/18 09/23/18 09/23/18 12:43 12:43 12:43 WBC RBC Hgb Hct MCV MCH MCHC RDW Plt Count MPV Neut % (Auto) Lymph % (Auto) Riley % (Auto) Eos % (Auto) Baso % (Auto) Neut # (Auto) Lymph # (Auto) Riley # (Auto) Eos # (Auto) Baso # (Auto) Sodium Potassium Chloride Carbon Dioxide Anion Gap BUN Creatinine Est GFR ( Amer) Est GFR (Non-Af Amer) POC Glucose (mg/dL) Random Glucose Calcium Total Bilirubin AST ALT Alkaline Phosphatase Total Protein Albumin Globulin Albumin/Globulin Ratio Hepatitis A IgM Ab Negative Hep Bs Antigen Negative Hep Bs Antibody Negative Hep B Core IgM Ab Negative Hepatitis C Antibody Negative HIV 1&2 Antibody Screen Negative 09/23/18 09/24/18 09/24/18 21:28 05:02 05:30 WBC 7.8 RBC 3.03 L Hgb 8.6 L Hct 26.3 L MCV 86.6 MCH 28.3 MCHC 32.7 L RDW 14.1 Plt Count 291 MPV 8.3 Neut % (Auto) 51.8 Lymph % (Auto) 27.0 Riley % (Auto) 14.0 H Eos % (Auto) 6.7 H Baso % (Auto) 0.5 Neut # (Auto) 4.0 Lymph # (Auto) 2.1 Riley # (Auto) 1.1 H Eos # (Auto) 0.5 Baso # (Auto) 0.0 Sodium Potassium Chloride Carbon Dioxide Anion Gap BUN Creatinine Est GFR ( Amer) Est GFR (Non-Af Amer) POC Glucose (mg/dL) 271 H 123 H Random Glucose Calcium Total Bilirubin AST ALT Alkaline Phosphatase Total Protein Albumin Globulin Albumin/Globulin Ratio Hepatitis A IgM Ab Hep Bs Antigen Hep Bs Antibody Hep B Core IgM Ab Hepatitis C Antibody HIV 1&2 Antibody Screen 09/24/18 09/24/18 09/24/18 05:30 11:34 15:42 WBC RBC Hgb Hct MCV MCH MCHC RDW Plt Count MPV Neut % (Auto) Lymph % (Auto) Riley % (Auto) Eos % (Auto) Baso % (Auto) Neut # (Auto) Lymph # (Auto) Riley # (Auto) Eos # (Auto) Baso # (Auto) Sodium 142 Potassium 3.8 Chloride 109 H Carbon Dioxide 25 Anion Gap 12 BUN 17 Creatinine 1.1 Est GFR ( Amer) 58 Est GFR (Non-Af Amer) 48 POC Glucose (mg/dL) 238 H 316 H Random Glucose 112 H Calcium 9.2 Total Bilirubin AST ALT Alkaline Phosphatase Total Protein Albumin Globulin Albumin/Globulin Ratio Hepatitis A IgM Ab Hep Bs Antigen Hep Bs Antibody Hep B Core IgM Ab Hepatitis C Antibody HIV 1&2 Antibody Screen 09/24/18 09/25/18 09/25/18 21:36 05:29 05:46 WBC 7.2 RBC 2.90 L Hgb 8.2 L Hct 25.0 L MCV 86.2 MCH 28.3 MCHC 32.8 L RDW 14.0 Plt Count 290 MPV Neut % (Auto) Lymph % (Auto) Riley % (Auto) Eos % (Auto) Baso % (Auto) Neut # (Auto) Lymph # (Auto) Riley # (Auto) Eos # (Auto) Baso # (Auto) Sodium Potassium Chloride Carbon Dioxide Anion Gap BUN Creatinine Est GFR ( Amer) Est GFR (Non-Af Amer) POC Glucose (mg/dL) 352 H 267 H Random Glucose Calcium Total Bilirubin AST ALT Alkaline Phosphatase Total Protein Albumin Globulin Albumin/Globulin Ratio Hepatitis A IgM Ab Hep Bs Antigen Hep Bs Antibody Hep B Core IgM Ab Hepatitis C Antibody HIV 1&2 Antibody Screen 09/25/18 09/25/18 09/25/18 05:46 11:02 15:27 WBC RBC Hgb Hct MCV MCH MCHC RDW Plt Count MPV Neut % (Auto) Lymph % (Auto) Riley % (Auto) Eos % (Auto) Baso % (Auto) Neut # (Auto) Lymph # (Auto) Riley # (Auto) Eos # (Auto) Baso # (Auto) Sodium 140 Potassium 4.4 Chloride 108 H Carbon Dioxide 25 Anion Gap 11 BUN 18 H Creatinine 1.2 Est GFR ( Amer) 53 Est GFR (Non-Af Amer) 43 POC Glucose (mg/dL) 279 H 295 H Random Glucose 264 H Calcium 9.2 Total Bilirubin < 0.1 L AST 23 ALT 23 Alkaline Phosphatase 83 Total Protein 7.1 Albumin 3.6 Globulin 3.6 Albumin/Globulin Ratio 1.0 Hepatitis A IgM Ab Hep Bs Antigen Hep Bs Antibody Hep B Core IgM Ab Hepatitis C Antibody HIV 1&2 Antibody Screen 09/25/18 09/26/18 09/26/18 21:27 05:01 06:13 WBC RBC Hgb Hct MCV MCH MCHC RDW Plt Count MPV Neut % (Auto) Lymph % (Auto) Riley % (Auto) Eos % (Auto) Baso % (Auto) Neut # (Auto) Lymph # (Auto) Riley # (Auto) Eos # (Auto) Baso # (Auto) Sodium Potassium Chloride Carbon Dioxide Anion Gap BUN Creatinine Est GFR ( Amer) Est GFR (Non-Af Amer) POC Glucose (mg/dL) 415 H* 483 H* 463 H* Random Glucose Calcium Total Bilirubin AST ALT Alkaline Phosphatase Total Protein Albumin Globulin Albumin/Globulin Ratio Hepatitis A IgM Ab Hep Bs Antigen Hep Bs Antibody Hep B Core IgM Ab Hepatitis C Antibody HIV 1&2 Antibody Screen 09/26/18 09/26/18 09/26/18 10:20 11:48 13:24 WBC RBC Hgb Hct MCV MCH MCHC RDW Plt Count MPV Neut % (Auto) Lymph % (Auto) Riley % (Auto) Eos % (Auto) Baso % (Auto) Neut # (Auto) Lymph # (Auto) Riley # (Auto) Eos # (Auto) Baso # (Auto) Sodium 137 Potassium 5.1 H Chloride 100 Carbon Dioxide 22 Anion Gap 20 BUN 27 H Creatinine 1.2 Est GFR ( Amer) 53 Est GFR (Non-Af Amer) 43 POC Glucose (mg/dL) > 500 H* 500 H* Random Glucose 543 H* D Calcium 10.2 Total Bilirubin AST ALT Alkaline Phosphatase Total Protein Albumin Globulin Albumin/Globulin Ratio Hepatitis A IgM Ab Hep Bs Antigen Hep Bs Antibody Hep B Core IgM Ab Hepatitis C Antibody HIV 1&2 Antibody Screen 09/26/18 16:57 WBC RBC Hgb Hct MCV MCH MCHC RDW Plt Count MPV Neut % (Auto) Lymph % (Auto) Riley % (Auto) Eos % (Auto) Baso % (Auto) Neut # (Auto) Lymph # (Auto) Riley # (Auto) Eos # (Auto) Baso # (Auto) Sodium Potassium Chloride Carbon Dioxide Anion Gap BUN Creatinine Est GFR ( Amer) Est GFR (Non-Af Amer) POC Glucose (mg/dL) 483 H* Random Glucose Calcium Total Bilirubin AST ALT Alkaline Phosphatase Total Protein Albumin Globulin Albumin/Globulin Ratio Hepatitis A IgM Ab Hep Bs Antigen Hep Bs Antibody Hep B Core IgM Ab Hepatitis C Antibody HIV 1&2 Antibody Screen Microbiology 09/20/18 18:05 Blood-Venous Blood Culture - Final NO GROWTH AFTER 5 DAYS 09/20/18 18:05 Blood-Venous Gram Stain - Final TEST NOT PERFORMED 09/20/18 18:30 Blood-Venous Blood Culture - Final NO GROWTH AFTER 5 DAYS 09/20/18 18:30 Blood-Venous Gram Stain - Final TEST NOT PERFORMED 09/20/18 18:30 Foot - Right Gram Stain - Final 09/20/18 18:30 Foot - Right Wound Culture - Final Escherichia Coli Corynebacterium Species Assessment and Plan (1) PVD (peripheral vascular disease) Status: Acute (2) Diabetic neuropathy Status: Acute (3) Arterial occlusion, lower extremity Status: Acute (4) Foot ulcer, right Status: Acute (5) Cellulitis and abscess of toe of right foot Status: Acute - Assessment and Plan (Free Text) Assessment: A/P- 78 year old female with DM II, HTN, PVD s/p multiple right leg atherectomy and angioplasty admitted with right great toe ulcer/cellulitis. clinically improved. has remained afebrile normal wbc count wound cx prelim- esbl e.coli and corynebacterium high ESR foot xray report- soft tissue swelling no osseous involvement as per report. blood x- neg x 2 LE US- Neg for dvt MRI as per report negative for OM. Plan- changed abx to meropnem for ESBL e.coli coverage day #4 continue with vanco day #6. keep vanco trough between 10-15. wound care as per podiatry. length of abx most likely 14 days .( hence 10 more days of meropnem and 4 more days of vanco). All above d/w patient and her daughter and they verbalize full understanding of all above and agree with above plan of care. Plan also d/w . I will be away from [facility] until Oct 04 and will be covering in my absence in case there are any questions.
--- NOTE | 2018-09-26 10:07 | CP.PCM.PN ---
Subjective - Date & Time of Evaluation Date of Evaluation: 09/26/18 Time of Evaluation: 09:59 - Subjective Subjective: 78 y/o F patient Seen at bedside for R LE PVD and R big toe ulceration, Patient was lying in bed, no acute distress. Patient states that the cough is still present. She states that she has SOB. She denies leg pain. Patient denies any ov ernight F or C. Wound Cx + for ESBL E.Coli. Contact precautions in place. Patient denies CP, vomiting, nausea, dysuria or diarrhea. Objective - Vital Signs/Intake and Output Vital Signs (last 24 hours): Temp Pulse Resp BP Pulse Ox 97.7 F 106 H 20 180/62 H 99 09/26/18 08:22 09/26/18 08:22 09/26/18 08:22 09/26/18 08:22 09/26/18 08:22 - Medications Medications: Current Medications Acetaminophen (Tylenol 325mg Tab) 650 mg PO Q4 PRN PRN Reason: Fever >100.4 F Last Admin: 09/22/18 01:06 Dose: 650 mg Albuterol/Ipratropium (Duoneb 3 Mg/0.5 Mg (3 Ml) Ud) 3 ml INH RQ4 [facility] Last Admin: 09/26/18 07:31 Dose: 3 ml Amlodipine Besylate (Norvasc) 10 mg PO DAILY [facility] Last Admin: 09/25/18 08:56 Dose: 10 mg Atorvastatin Calcium (Lipitor) 40 mg PO DAILY [facility] Last Admin: 09/25/18 08:56 Dose: 40 mg Benzonatate (Tessalon Perles) 100 mg PO Q8 PRN PRN Reason: Cough Last Admin: 09/26/18 06:11 Dose: 100 mg Cyclobenzaprine HCl (Flexeril) 5 mg PO TID [facility] Last Admin: 09/23/18 16:15 Dose: Not Given Dextrose (Dextrose 50% Inj) 0 ml IV STAT PRN; Protocol PRN Reason: Hypoglycemia Protocol Dextrose (Glutose 15) 0 gm PO ONCE [facility]; Protocol PRN Reason: Hypoglycemia Protocol Docusate Sodium (Colace) 100 mg PO BID [facility] Last Admin: 09/25/18 17:19 Dose: 100 mg Enoxaparin Sodium (Lovenox) 70 mg SC HS [facility]; Protocol Last Admin: 09/24/18 21:06 Dose: 70 mg Ergocalciferol (Drisdol 50,000 Intl Units Cap) 1 cap PO QWK [facility] Last Admin: 09/21/18 09:01 Dose: 1 cap Glucagon (Glucagen Diagnostic Kit) 0 mg IM STAT [facility]; Protocol PRN Reason: Hypoglycemia Protocol Guaifenesin/Dextromethorphan (Mucinex-Dm 600-30 Mg) 1 tab PO BID [facility] Last Admin: 09/25/18 17:20 Dose: 1 tab Vancomycin HCl 1 gm/ Sodium (Chloride) 250 mls @ 166.667 mls/hr IVPB DAILY [facility]; Protocol Last Admin: 09/25/18 08:54 Dose: 166.667 mls/hr Meropenem 1 gm/ Sodium (Chloride) 100 mls @ 100 mls/hr IVPB Q8 [facility]; Protocol Last Admin: 09/26/18 01:06 Dose: 100 mls/hr Insulin Detemir (Levemir) 25 units SC HS [facility] Insulin Human Regular (Humulin R) 0 units SC ACHS [facility]; Protocol Methylprednisolone (Solu-Medrol) 40 mg IV Q12H [facility] Mirtazapine (Remeron) 15 mg PO HS [facility] Last Admin: 09/25/18 22:44 Dose: 15 mg Montelukast Sodium (Singulair) 10 mg PO DAILY [facility] Last Admin: 09/25/18 08:56 Dose: 10 mg Ondansetron HCl (Zofran Odt) 4 mg PO Q8H PRN PRN Reason: Nausea/Vomiting Last Admin: 09/25/18 08:56 Dose: 4 mg Oxycodone/Acetaminophen (Percocet 5/325 Mg Tab) 1 tab PO Q4 PRN PRN Reason: Pain, severe (8-10) Stop: 09/26/18 19:19 Last Admin: 09/26/18 06:11 Dose: 1 tab Pantoprazole Sodium (Protonix Ec Tab) 40 mg PO DAILY [facility] Last Admin: 09/25/18 08:56 Dose: 40 mg Pregabalin (Lyrica) 50 mg PO TID [facility] Last Admin: 09/25/18 17:29 Dose: 50 mg Pregabalin (Lyrica) 50 mg PO HS [facility] Last Admin: 09/25/18 22:44 Dose: 50 mg Silver Sulfadiazine (Silvadene 1% 50 Gm) 1 applic TOP DAILY [facility] Last Admin: 09/25/18 08:55 Dose: 1 applic - Labs Labs: 09/25/18 05:46 09/25/18 05:46 PT 12.6 Seconds (9.8-13.1) 09/20/18 18:30 INR 1.1 09/20/18 18:30 APTT 35.9 Seconds (25.6-37.1) 09/20/18 18:30 - Constitutional Appears: Non-toxic, No Acute Distress - Head Exam Head Exam: ATRAUMATIC, NORMOCEPHALIC - Eye Exam Eye Exam: EOMI, Normal appearance, PERRL Pupil Exam: NORMAL ACCOMODATION, PERRL - ENT Exam ENT Exam: Mucous Membranes Moist, Normal Exam - Neck Exam Neck Exam: Full ROM, Normal Inspection - Respiratory Exam Respiratory Exam: Prolonged Expiratory Phase, Wheezes - Cardiovascular Exam Cardiovascular Exam: REGULAR RHYTHM, RRR - GI/Abdominal Exam GI & Abdominal Exam: Soft, Normal Bowel Sounds - Extremities Exam Additional comments: ulceration noted on the nail bed of the R hallux with black eschar covering the tip of the R hallux. - Back Exam Back Exam: NORMAL INSPECTION - Neurological Exam Neurological Exam: Alert, Awake, Oriented x3 Neuro motor strength exam: Left Upper Extremity: 5, Right Upper Extremity: 5, Left Lower Extremity: 5, Right Lower Extremity: 5 - Psychiatric Exam Psychiatric exam: Normal Affect - Skin Skin Exam: Dry, Normal Color, Warm Assessment and Plan - Assessment and Plan (Free Text) Assessment: 78 years old female brought to the ED because of worsening pain to the right lower extremity with cold right foot. Plan: R 1st toe chronic ulcer likely arterial PVD with Partial Right Femoral Artery occlusion No definite OM on MRI of the foot Wound Cx + for ESBL E.Coli. 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. Vascular consult Dr Zavala, recs appreciated Podiatry consult, recs appreciated. Bedside debridement by podiatry planned for today afternoon. Lovenox is held for today. ID consult, recs appreciated, Dr Barclay Lovenox therapeutic dose, renal adjusted. Brellinta stopped for now in case patient needs Sx procedure for toe. Dr Zavala agreed. Pain management. C/w Lyrica Fever Afebrile overnight Acute Poss due to wound infection. UA WNL Repeat CXR no active disease C/w IV abx BCx x2 neg ESBL, E.Coli infection Contact precautions ID on board C/w IV Meropenen CKD III chronic, stable BUN/creat stable Meds adjusted IDDM Chronic Stable. Accuchecks 200s HbA1c 7.8 on 05/21/18 Lispro Insulin sliding scale according to sliding scale C/w Levemir to 25 units SC HS Monitor blood sugar. HTN Chronic Controlled C/w Norvasc for now Monitor blood pressure. COPD Chronic Stable Solumedrol 40 Q12 Mucinx 1 tab BID C/W O2 Duonebs Q4 Anemia Chronic Likely chronic disease anemia Stable Monitor DVT prophylaxis: On Lovenox therapeutic, renal dose
[2018-09-26 11:16] LABS: CALCIUM 10.2 mg/dL (8.4-10.2)
[2018-09-26] MEDS ORDERED: Lidocaine 1% Inj (20ml) ONE (12:01)
[2018-09-26] MEDS ORDERED: Povidone Iodine Topical 10% Sol ONE (12:05)
--- NOTE | 2018-09-26 13:33 | CP.PCM.PN ---
Subjective - Date & Time of Evaluation Date of Evaluation: 09/26/18 Time of Evaluation: 13:28 - Subjective Subjective: Podiatry progress note for Dr. Marks 78F seen and evaluated at bedside with Dr. Marks for bedside debridement of right great toe ulceration. Patient is resting comfortably. States she has mild pain to her great toe. States she still feels like she is wheezing. Denies N/V/F/C and has no other acute complaints today. Objective - Vital Signs/Intake and Output Vital Signs (last 24 hours): Temp Pulse Resp BP Pulse Ox 97.7 F 106 H 20 180/62 H 99 09/26/18 08:22 09/26/18 08:22 09/26/18 08:22 09/26/18 08:22 09/26/18 08:22 - Medications Medications: Current Medications Acetaminophen (Tylenol 325mg Tab) 650 mg PO Q4 PRN PRN Reason: Fever >100.4 F Last Admin: 09/22/18 01:06 Dose: 650 mg Albuterol/Ipratropium (Duoneb 3 Mg/0.5 Mg (3 Ml) Ud) 3 ml INH RQ4 [facility] Last Admin: 09/26/18 07:31 Dose: 3 ml Amlodipine Besylate (Norvasc) 10 mg PO DAILY [facility] Last Admin: 09/25/18 08:56 Dose: 10 mg Atorvastatin Calcium (Lipitor) 40 mg PO DAILY [facility] Last Admin: 09/25/18 08:56 Dose: 40 mg Benzonatate (Tessalon Perles) 100 mg PO Q8 PRN PRN Reason: Cough Last Admin: 09/26/18 06:11 Dose: 100 mg Cyclobenzaprine HCl (Flexeril) 5 mg PO TID [facility] Last Admin: 09/23/18 16:15 Dose: Not Given Dextrose (Dextrose 50% Inj) 0 ml IV STAT PRN; Protocol PRN Reason: Hypoglycemia Protocol Dextrose (Glutose 15) 0 gm PO ONCE PRN; Protocol PRN Reason: Hypoglycemia Protocol Docusate Sodium (Colace) 100 mg PO BID [facility] Last Admin: 09/25/18 17:19 Dose: 100 mg Enoxaparin Sodium (Lovenox) 70 mg SC HS [facility]; Protocol Last Admin: 09/24/18 21:06 Dose: 70 mg Ergocalciferol (Drisdol 50,000 Intl Units Cap) 1 cap PO QWK [facility] Last Admin: 09/21/18 09:01 Dose: 1 cap Glucagon (Glucagen Diagnostic Kit) 0 mg IM STAT PRN; Protocol PRN Reason: Hypoglycemia Protocol Guaifenesin/Dextromethorphan (Mucinex-Dm 600-30 Mg) 1 tab PO BID [facility] Last Admin: 09/25/18 17:20 Dose: 1 tab Vancomycin HCl 1 gm/ Sodium (Chloride) 250 mls @ 166.667 mls/hr IVPB DAILY [facility]; Protocol Last Admin: 09/25/18 08:54 Dose: 166.667 mls/hr Meropenem 1 gm/ Sodium (Chloride) 100 mls @ 100 mls/hr IVPB Q8 [facility]; Protocol Last Admin: 09/26/18 01:06 Dose: 100 mls/hr Insulin Detemir (Levemir) 25 units SC HS [facility] Insulin Human Regular (Humulin R) 0 units SC ACHS [facility]; Protocol Methylprednisolone (Solu-Medrol) 40 mg IV Q12H [facility] Mirtazapine (Remeron) 15 mg PO HS [facility] Last Admin: 09/25/18 22:44 Dose: 15 mg Montelukast Sodium (Singulair) 10 mg PO DAILY [facility] Last Admin: 09/25/18 08:56 Dose: 10 mg Ondansetron HCl (Zofran Odt) 4 mg PO Q8H PRN PRN Reason: Nausea/Vomiting Last Admin: 09/25/18 08:56 Dose: 4 mg Oxycodone/Acetaminophen (Percocet 5/325 Mg Tab) 1 tab PO Q4 PRN PRN Reason: Pain, severe (8-10) Stop: 09/26/18 19:19 Last Admin: 09/26/18 06:11 Dose: 1 tab Pantoprazole Sodium (Protonix Ec Tab) 40 mg PO DAILY [facility] Last Admin: 09/25/18 08:56 Dose: 40 mg Pregabalin (Lyrica) 50 mg PO TID [facility] Last Admin: 09/25/18 17:29 Dose: 50 mg Pregabalin (Lyrica) 50 mg PO HS [facility] Last Admin: 09/25/18 22:44 Dose: 50 mg Promethazine HCl/Codeine (Phenergan/Codeine Oral Syrup) 5 ml PO Q6 PRN PRN Reason: Cough Silver Sulfadiazine (Silvadene 1% 50 Gm) 1 applic TOP DAILY [facility] Last Admin: 09/25/18 08:55 Dose: 1 applic - Labs Labs: 09/25/18 05:46 09/26/18 10:20 PT 12.6 Seconds (9.8-13.1) 09/20/18 18:30 INR 1.1 09/20/18 18:30 APTT 35.9 Seconds (25.6-37.1) 09/20/18 18:30 - Constitutional Appears: Well, Non-toxic, No Acute Distress - Head Exam Head Exam: ATRAUMATIC, NORMOCEPHALIC - Extremities Exam Additional comments: LE focused VASC: R DP pulses very faintly palpable R PT pulse is palpable 1/4, L DP/PT 2/4. Cap refill almost 3 sec to all digits. Temp gradient warm to warmer on the R side and warm to cool on the left side from proximal to distal. Non pitting edema noted on the right foot up to the ankle. Erythema extending from the R hallux to the R 1st MPJ. Small superficial varicosities noted to the L foot and ankle NEURO: Gross and Protective sensation are grossly diminished. DERM: an ulcer measuring 1.2X1.2X0.3cm noted in the nail bed of the R hallux. negative purulent discharge, positive probe to bone, No malodor, No tracking or undermining. Base is granular: fibrotic 50:50 with black eschar covering the tip of the toe. improving Erythema R hallux to the R 1st MPJ. Positive clinical signs of active infection. MSK: Mild pain to palpation of the R hallux. Muscle power intact 5/5 to all groups. - Neurological Exam Neurological Exam: Alert, Awake, Oriented x3 - Psychiatric Exam Psychiatric exam: Normal Affect, Normal Mood Assessment and Plan - Assessment and Plan (Free Text) Assessment: 78 F with R hallux infected ulcer and cellulitis Plan: Patient seen and evaluated with Dr. Marks Afebrile, absent leukocytosis Wound Cx: E. Coli, Corneybacterium species R foot X-ray: Soft tissue swelling without acute articular or osseous anomalies. R foot MRI: mild inflammation at site of ulceration, despite motion artifact, no definite evidence of osteomyelitis is appreciated, mild thinning of skin RLE arterial duplex: Inflow disease with high common femoral artery flow, R common femoral artery and SFA have atherosclerotic disease with areas of narrowing and stenosis. Flow is identified in the popliteal, posterior tibial and DP arteries. ESR: 92 (09/21/18) CRP: 18.30 Wound site prepped and in sterile manner was debrided down to healthy bleeding tissue; lidocaine 1% plain was used to locally anesthetize the area; wound cx were taken and nail was sent with culture for pathology; patient tolerated procedure well; probe and debridement to bone Patient is on Vanco/Zosyn ID consulted: recommendations appreciated Vascular sx consulted: all recommendations appreciated Patient to ambulate in the surgical shoe all the times Patient is stable for discharge from podiatry standpoint with ID recommendations of medication, will f/u outpatient for further treatment of wound Dressing instructions: Silvadene and DSD with KAYCE, surgical shoe for ambulation at all times Podiatry will continue to follow up the patient while in house
[2018-09-26] MEDS: Insulin Regular 100 units/ml SC SCH (17:00)
[2018-09-26] MEDS: guaiFENesin-DM 600-30 mg ER Tab PO SCH (17:02)
[2018-09-26] MEDS: Promethazine/Cod 6.25mg-10mg/5ml Syr UD PO PRN (22:15)
[2018-09-27] MEDS: Meropenem 1 GM in Sodium Chloride 0.9% 100 ML IVPB SCH ×3 (00:06→16:28)
[2018-09-27] MEDS: Promethazine/Cod 6.25mg-10mg/5ml Syr UD PO PRN ×2 (04:38→10:12)
[2018-09-27] MEDS: Albuterol-Ipratrop 3 mg / 0.5 (3 ml) UD INH SCH ×5 (04:56→19:10)
[2018-09-27 06:42] LABS: CALCIUM 10.7 mg/dL (8.4-10.2)
[2018-09-27 06:45] LABS: BASO % 0.2 % (0.0-2.0); HEMOGLOBIN 9.1 g/dL (12.0-16.0); LYMPH # 1.5 K/uL (1.0-4.3); LYMPH % 9.8 % (20.0-40.0); MEAN CORPUSCULAR HEMOGLOBIN 28.3 pg (27.0-31.0); MEAN CORPUSCULAR HGB CONC 32.2 g/dL (33.0-37.0); MEAN PLATELET VOLUME 9.2 fl (7.2-11.7); MONO # 0.6 K/uL (0.0-0.8); NEUT # 13.2 K/uL (1.8-7.0); PLATELET COUNT 400 K/uL (130-400); RBC 3.22 Mil/uL (3.80-5.20); RED CELL DISTRIBUTION WIDTH 14.3 % (11.5-14.5); WHITE BLOOD COUNT 15.3 K/uL (4.8-10.8)
[2018-09-27] MEDS: Insulin Regular 100 units/ml SC SCH ×4 (06:45→21:34)
[2018-09-27] MEDS: Oxycodone/Acetaminophen 5/325 mg Tab PO PRN (08:56)
[2018-09-27] MEDS: Pantoprazole 40 mg EC Tab PO SCH (09:00)
[2018-09-27] MEDS: guaiFENesin-DM 600-30 mg ER Tab PO SCH ×2 (09:03→16:32)
[2018-09-27] MEDS: MethylPREDNISolone 40 mg Vial IV SCH ×2 (09:04→21:30)
--- NOTE | 2018-09-27 09:04 | CARD ---
APPROVED REPORT Date of service: 09/26/2018 EXAM: Two-dimensional and M-mode echocardiogram with Doppler and color Doppler. Other Information Quality : AverageRhythm : Tachycardia Technically limited study due to Poor Window INDICATION LV Function:SystolicDiastolic 2D DIMENSIONS IVSd1.07 (0.7-1.1cm)LVDd4.16 (3.9-5.9cm) LVOT Diameter2.07 (1.8-2.4cm)PWd1.05 (0.7-1.1cm) IVSs0.86 (0.8-1.2cm)LVDs3.57 (2.5-4.0cm) FS (%) 14.3 %PWs1.37 (0.8-1.2cm) M-Mode DIMENSIONS Left Atrium (MM)4.29 (2.5-4.0cm)IVSd1.09 (0.7-1.1cm) Aortic Root2.59 (2.2-3.7cm)LVDd4.35 (4.0-5.6cm) Aortic Cusp Exc.1.47 (1.5-2.0cm)PWd0.97 (0.7-1.1cm) IVSs1.47 cmFS (%) 30 % LVDs3.06 (2.0-3.8cm)PWs1.38 cm Mitral Valve E/A ratio0.0 TDI E/Lateral E'0.0E/Medial E'0.0 LEFT VENTRICLE The left ventricle is normal size. There is normal left ventricular wall thickness. The left ventricular systolic function is normal. The estimated ejection fraction is 55-60% No regional wall motion abnormalities noted.. The left ventricular diastolic function assessment is inconclusive. No left ventricle thrombus noted on this study. There is no ventricular septal defect visualized. There is no left ventricular aneurysm. There is no mass noted in the left ventricle. RIGHT VENTRICLE The right ventricle is normal size. There is normal right ventricular wall thickness. The right ventricular systolic function is normal. ATRIA The left atrium is mildly dilated. The right atrium size is normal. The interatrial septum is intact with no evidence for an atrial septal defect. AORTIC VALVE The aortic valve is normal in structure. No aortic regurgitation is present. There is no aortic valvular stenosis. There is no aortic valvular vegetation. MITRAL VALVE The mitral valve is normal in structure. There is no evidence of mitral valve prolapse. There is no mitral valve stenosis. There is no mitral valve regurgitation noted. TRICUSPID VALVE The tricuspid valve is normal in structure. There is no tricuspid valve regurgitation noted. There is no tricuspid valve prolapse or vegetation. There is no tricuspid valve stenosis. PULMONIC VALVE The pulmonary valve is normal in structure. There is no pulmonic valvular regurgitation. There is no pulmonic valvular stenosis. GREAT VESSELS The aortic root is normal in size. The ascending aorta is normal in size. The pulmonary artery is normal. The IVC is normal in size and collapses >50% with inspiration. PERICARDIAL EFFUSION There is no pericardial effusion. There is no pleural effusion. <Conclusion> The estimated ejection fraction is 55-60% The left ventricular diastolic function assessment is inconclusive. The left atrium is mildly dilated. There is no significant tricuspid valve regurgitation noted.
[2018-09-27] MEDS: Silver Sulfadiazine 1% CREAM (50 gm) TOP SCH (10:17)
--- NOTE | 2018-09-27 10:46 | CP.PCM.PN ---
<Jose Junior - Last Filed: 09/27/18 10:43> Subjective - Date & Time of Evaluation Date of Evaluation: 09/27/18 Time of Evaluation: 10:44 - Subjective Subjective: Podiatry progress note for Dr. Marks 78F seen and evaluated at bedside. Patient had bedside debridement yesterday or right great toe and states that she feels no pain or discomfort in the toe today. Patient is resting comfortably. Denies N/V/F/C and has no other acute complaints today. Objective - Vital Signs/Intake and Output Vital Signs (last 24 hours): Temp Pulse Resp BP Pulse Ox 97.4 F L 115 H 20 158/77 H 96 09/27/18 08:33 09/27/18 09:00 09/27/18 08:33 09/27/18 09:00 09/27/18 08:33 - Medications Medications: Current Medications Acetaminophen (Tylenol 325mg Tab) 650 mg PO Q4 PRN PRN Reason: Fever >100.4 F Last Admin: 09/22/18 01:06 Dose: 650 mg Albuterol/Ipratropium (Duoneb 3 Mg/0.5 Mg (3 Ml) Ud) 3 ml INH RQ4 [facility] Last Admin: 09/27/18 07:22 Dose: 3 ml Amlodipine Besylate (Norvasc) 10 mg PO DAILY [facility] Last Admin: 09/27/18 09:00 Dose: 10 mg Atorvastatin Calcium (Lipitor) 40 mg PO DAILY [facility] Last Admin: 09/25/18 08:56 Dose: 40 mg Benzonatate (Tessalon Perles) 100 mg PO Q8 PRN PRN Reason: Cough Last Admin: 09/27/18 09:04 Dose: 100 mg Cyclobenzaprine HCl (Flexeril) 5 mg PO TID [facility] Last Admin: 09/23/18 16:15 Dose: Not Given Dextrose (Dextrose 50% Inj) 0 ml IV STAT PRN; Protocol PRN Reason: Hypoglycemia Protocol Dextrose (Glutose 15) 0 gm PO ONCE PRN; Protocol PRN Reason: Hypoglycemia Protocol Docusate Sodium (Colace) 100 mg PO BID [facility] Last Admin: 09/27/18 09:02 Dose: Not Given Enoxaparin Sodium (Lovenox) 70 mg SC HS [facility]; Protocol Last Admin: 09/24/18 21:06 Dose: 70 mg Ergocalciferol (Drisdol 50,000 Intl Units Cap) 1 cap PO QWK [facility] Last Admin: 09/21/18 09:01 Dose: 1 cap Glucagon (Glucagen Diagnostic Kit) 0 mg IM STAT PRN; Protocol PRN Reason: Hypoglycemia Protocol Guaifenesin/Dextromethorphan (Mucinex-Dm 600-30 Mg) 1 tab PO BID [facility] Last Admin: 09/27/18 09:03 Dose: 1 tab Vancomycin HCl 1 gm/ Sodium (Chloride) 250 mls @ 166.667 mls/hr IVPB DAILY [facility]; Protocol Last Admin: 09/25/18 08:54 Dose: 166.667 mls/hr Meropenem 1 gm/ Sodium (Chloride) 100 mls @ 100 mls/hr IVPB Q8 [facility]; Protocol Last Admin: 09/27/18 09:11 Dose: 100 mls/hr Insulin Detemir (Levemir) 25 units SC HS [facility] Insulin Human Regular (Humulin R) 0 units SC ACHS [facility]; Protocol Last Admin: 09/27/18 06:45 Dose: 12 units Methylprednisolone (Solu-Medrol) 40 mg IV Q12H [facility] Last Admin: 09/27/18 09:04 Dose: 40 mg Mirtazapine (Remeron) 15 mg PO HS [facility] Last Admin: 09/25/18 22:44 Dose: 15 mg Montelukast Sodium (Singulair) 10 mg PO DAILY [facility] Last Admin: 09/27/18 09:03 Dose: 10 mg Ondansetron HCl (Zofran Odt) 4 mg PO Q8H PRN PRN Reason: Nausea/Vomiting Last Admin: 09/25/18 08:56 Dose: 4 mg Oxycodone/Acetaminophen (Percocet 5/325 Mg Tab) 1 tab PO Q6 PRN PRN Reason: Pain, severe (8-10) Stop: 09/30/18 08:04 Last Admin: 09/27/18 08:56 Dose: 1 tab Pantoprazole Sodium (Protonix Ec Tab) 40 mg PO DAILY [facility] Last Admin: 09/27/18 09:00 Dose: 40 mg Pregabalin (Lyrica) 50 mg PO TID [facility] Last Admin: 09/27/18 08:59 Dose: 50 mg Pregabalin (Lyrica) 50 mg PO HS [facility] Last Admin: 09/25/18 22:44 Dose: 50 mg Promethazine HCl/Codeine (Phenergan/Codeine Oral Syrup) 5 ml PO Q6 PRN PRN Reason: Cough Last Admin: 09/27/18 10:12 Dose: 5 ml Silver Sulfadiazine (Silvadene 1% 50 Gm) 1 applic TOP DAILY [facility] Last Admin: 09/27/18 10:17 Dose: 1 applic - Labs Labs: 09/27/18 05:20 09/27/18 05:20 PT 12.6 Seconds (9.8-13.1) 09/20/18 18:30 INR 1.1 09/20/18 18:30 APTT 35.9 Seconds (25.6-37.1) 09/20/18 18:30 - Constitutional Appears: Well, Non-toxic, No Acute Distress - Head Exam Head Exam: ATRAUMATIC, NORMOCEPHALIC - Extremities Exam Additional comments: LE focused VASC: R DP pulses very faintly palpable R PT pulse is palpable 1/4, L DP/PT 2/4. Cap refill almost 3 sec to all digits. Temp gradient warm to warmer on the R side and warm to cool on the left side from proximal to distal. Non pitting edema noted on the right foot up to the ankle. Erythema extending from the R hallux to the R 1st MPJ. Small superficial varicosities noted to the L foot and ankle NEURO: Gross and Protective sensation are grossly diminished. DERM: an ulcer measuring 1.2X1.2X0.3cm noted in the nail bed of the R hallux. negative purulent discharge, positive probe to bone, No malodor, No tracking or undermining. Base is granular: after debridement of necrotic eschar bone is exposed with granular base and bleeding tissue present; improving Erythema R hallux to the R 1st MPJ. Positive clinical signs of active infection. MSK: Mild pain to palpation of the R hallux. Muscle power intact 5/5 to all groups. - Neurological Exam Neurological Exam: Alert, Awake, Oriented x3 - Psychiatric Exam Psychiatric exam: Normal Affect, Normal Mood Assessment and Plan - Assessment and Plan (Free Text) Assessment: 78 F with R hallux infected ulcer and cellulitis Plan: Patient seen and evaluated Discussed in detail with Dr. Marks Afebrile, WBC 15.3 Wound Cx: E. Coli, Corneybacterium species R foot X-ray: Soft tissue swelling without acute articular or osseous anomalies. R foot MRI: mild inflammation at site of ulceration, despite motion artifact, no definite evidence of osteomyelitis is appreciated, mild thinning of skin RLE arterial duplex: Inflow disease with high common femoral artery flow, R common femoral artery and SFA have atherosclerotic disease with areas of narrowing and stenosis. Flow is identified in the popliteal, posterior tibial and DP arteries. ESR: 92 (09/21/18) CRP: 18.30 Wound site cleansed with sterile saline and dressed with SSD and DSD Patient is on Vanco/meropenem ID consulted: recommendations appreciated - continue vanc and meropenem for 14 day course of each Vascular sx consulted: all recommendations appreciated Patient to ambulate in the surgical shoe all the times Patient is stable for discharge from podiatry standpoint with ID recommendations of medication, will f/u outpatient with Dr. Marks for further treatment of wound Dressing instructions: Silvadene and DSD with KAYCE, surgical shoe for ambulation at all times Podiatry will continue to follow up the patient while in house <Luís David - Last Filed: 09/27/18 17:20> Objective - Vital Signs/Intake and Output Vital Signs (last 24 hours): Temp Pulse Resp BP Pulse Ox 98 F 113 H 20 139/64 96 09/27/18 16:28 09/27/18 16:28 09/27/18 16:28 09/27/18 16:28 09/27/18 16:28 - Medications Medications: Current Medications Acetaminophen (Tylenol 325mg Tab) 650 mg PO Q4 PRN PRN Reason: Fever >100.4 F Last Admin: 09/22/18 01:06 Dose: 650 mg Albuterol/Ipratropium (Duoneb 3 Mg/0.5 Mg (3 Ml) Ud) 3 ml INH RQ4 [facility] Last Admin: 09/27/18 15:34 Dose: 3 ml Amlodipine Besylate (Norvasc) 10 mg PO DAILY [facility] Last Admin: 09/27/18 09:00 Dose: 10 mg Atorvastatin Calcium (Lipitor) 40 mg PO DAILY [facility] Last Admin: 09/27/18 12:58 Dose: 40 mg Benzonatate (Tessalon Perles) 100 mg PO Q8 PRN PRN Reason: Cough Last Admin: 09/27/18 09:04 Dose: 100 mg Cyclobenzaprine HCl (Flexeril) 5 mg PO TID [facility] Last Admin: 09/23/18 16:15 Dose: Not Given Dextrose (Dextrose 50% Inj) 0 ml IV STAT PRN; Protocol PRN Reason: Hypoglycemia Protocol Dextrose (Glutose 15) 0 gm PO ONCE PRN; Protocol PRN Reason: Hypoglycemia Protocol Docusate Sodium (Colace) 100 mg PO BID [facility] Last Admin: 09/27/18 16:30 Dose: 100 mg Enoxaparin Sodium (Lovenox) 70 mg SC HS [facility]; Protocol Last Admin: 09/24/18 21:06 Dose: 70 mg Ergocalciferol (Drisdol 50,000 Intl Units Cap) 1 cap PO QWK [facility] Last Admin: 09/21/18 09:01 Dose: 1 cap Glucagon (Glucagen Diagnostic Kit) 0 mg IM STAT PRN; Protocol PRN Reason: Hypoglycemia Protocol Guaifenesin/Dextromethorphan (Mucinex-Dm 600-30 Mg) 1 tab PO BID [facility] Last Admin: 09/27/18 16:32 Dose: 1 tab Vancomycin HCl 1 gm/ Sodium (Chloride) 250 mls @ 166.667 mls/hr IVPB DAILY [facility]; Protocol Last Admin: 09/27/18 13:02 Dose: 166.667 mls/hr Meropenem 1 gm/ Sodium (Chloride) 100 mls @ 100 mls/hr IVPB Q8 [facility]; Protocol Last Admin: 09/27/18 16:28 Dose: 100 mls/hr Insulin Detemir (Levemir) 25 units SC [facility] Insulin Human Regular (Humulin R) 0 units SC ACHS [facility]; Protocol Last Admin: 09/27/18 16:31 Dose: 12 units Methylprednisolone (Solu-Medrol) 40 mg IV Q12H [facility] Last Admin: 09/27/18 09:04 Dose: 40 mg Mirtazapine (Remeron) 15 mg PO HS [facility] Last Admin: 09/25/18 22:44 Dose: 15 mg Montelukast Sodium (Singulair) 10 mg PO DAILY [facility] Last Admin: 09/27/18 09:03 Dose: 10 mg Ondansetron HCl (Zofran Odt) 4 mg PO Q8H PRN PRN Reason: Nausea/Vomiting Last Admin: 09/25/18 08:56 Dose: 4 mg Oxycodone/Acetaminophen (Percocet 5/325 Mg Tab) 1 tab PO Q6 PRN PRN Reason: Pain, severe (8-10) Stop: 09/30/18 08:04 Last Admin: 09/27/18 08:56 Dose: 1 tab Pantoprazole Sodium (Protonix Ec Tab) 40 mg PO DAILY [facility] Last Admin: 09/27/18 09:00 Dose: 40 mg Pregabalin (Lyrica) 50 mg PO TID [facility] Last Admin: 09/27/18 16:30 Dose: 50 mg Pregabalin (Lyrica) 50 mg PO HS [facility] Last Admin: 09/25/18 22:44 Dose: 50 mg Promethazine HCl/Codeine (Phenergan/Codeine Oral Syrup) 5 ml PO Q6 PRN PRN Reason: Cough Last Admin: 09/27/18 10:12 Dose: 5 ml Silver Sulfadiazine (Silvadene 1% 50 Gm) 1 applic TOP DAILY [facility] Last Admin: 09/27/18 10:17 Dose: 1 applic - Labs Labs: 09/27/18 05:20 09/27/18 05:20 PT 12.6 Seconds (9.8-13.1) 09/20/18 18:30 INR 1.1 09/20/18 18:30 APTT 35.9 Seconds (25.6-37.1) 09/20/18 18:30
[2018-09-27 11:53] LABS: HYPOCHROMIC MODERATE; LARGE PLATELETS PRESENT; LYMPHOCYTE 11 % (20-50); MONOCYTE 3 % (0-10); NEUTROPHIL 86 % (42-75); OVALOCYTES SLIGHT; PLATELET ESTIMATE NORMAL (NORMAL); SCHISTOCYTES SLIGHT; TOTAL CELLS COUNTED 100
--- NOTE | 2018-09-27 13:32 | CP.PCM.PN ---
Subjective - Date & Time of Evaluation Date of Evaluation: 09/27/18 Time of Evaluation: 11:40 - Subjective Subjective: F/U S/P I&D R Great toe cough "dry" , no pain R foot Objective - Vital Signs/Intake and Output Vital Signs (last 24 hours): Temp Pulse Resp BP Pulse Ox 97.4 F L 115 H 20 158/77 H 96 09/27/18 08:33 09/27/18 09:00 09/27/18 08:33 09/27/18 09:00 09/27/18 08:33 - Medications Medications: Current Medications Acetaminophen (Tylenol 325mg Tab) 650 mg PO Q4 PRN PRN Reason: Fever >100.4 F Last Admin: 09/22/18 01:06 Dose: 650 mg Albuterol/Ipratropium (Duoneb 3 Mg/0.5 Mg (3 Ml) Ud) 3 ml INH RQ4 [facility] Last Admin: 09/27/18 10:59 Dose: 3 ml Amlodipine Besylate (Norvasc) 10 mg PO DAILY [facility] Last Admin: 09/27/18 09:00 Dose: 10 mg Atorvastatin Calcium (Lipitor) 40 mg PO DAILY [facility] Last Admin: 09/27/18 12:58 Dose: 40 mg Benzonatate (Tessalon Perles) 100 mg PO Q8 PRN PRN Reason: Cough Last Admin: 09/27/18 09:04 Dose: 100 mg Cyclobenzaprine HCl (Flexeril) 5 mg PO TID [facility] Last Admin: 09/23/18 16:15 Dose: Not Given Dextrose (Dextrose 50% Inj) 0 ml IV STAT PRN; Protocol PRN Reason: Hypoglycemia Protocol Dextrose (Glutose 15) 0 gm PO ONCE PRN; Protocol PRN Reason: Hypoglycemia Protocol Docusate Sodium (Colace) 100 mg PO BID [facility] Last Admin: 09/27/18 09:02 Dose: Not Given Enoxaparin Sodium (Lovenox) 70 mg SC HS [facility]; Protocol Last Admin: 09/24/18 21:06 Dose: 70 mg Ergocalciferol (Drisdol 50,000 Intl Units Cap) 1 cap PO QWK [facility] Last Admin: 09/21/18 09:01 Dose: 1 cap Glucagon (Glucagen Diagnostic Kit) 0 mg IM STAT PRN; Protocol PRN Reason: Hypoglycemia Protocol Guaifenesin/Dextromethorphan (Mucinex-Dm 600-30 Mg) 1 tab PO BID [facility] Last Admin: 09/27/18 09:03 Dose: 1 tab Vancomycin HCl 1 gm/ Sodium (Chloride) 250 mls @ 166.667 mls/hr IVPB DAILY [facility]; Protocol Last Admin: 09/27/18 13:02 Dose: 166.667 mls/hr Meropenem 1 gm/ Sodium (Chloride) 100 mls @ 100 mls/hr IVPB Q8 [facility]; Protocol Last Admin: 09/27/18 09:11 Dose: 100 mls/hr Insulin Detemir (Levemir) 25 units SC HS [facility] Insulin Human Regular (Humulin R) 0 units SC ACHS [facility]; Protocol Last Admin: 09/27/18 12:57 Dose: 12 units Methylprednisolone (Solu-Medrol) 40 mg IV Q12H [facility] Last Admin: 09/27/18 09:04 Dose: 40 mg Mirtazapine (Remeron) 15 mg PO HS [facility] Last Admin: 09/25/18 22:44 Dose: 15 mg Montelukast Sodium (Singulair) 10 mg PO DAILY [facility] Last Admin: 09/27/18 09:03 Dose: 10 mg Ondansetron HCl (Zofran Odt) 4 mg PO Q8H PRN PRN Reason: Nausea/Vomiting Last Admin: 09/25/18 08:56 Dose: 4 mg Oxycodone/Acetaminophen (Percocet 5/325 Mg Tab) 1 tab PO Q6 PRN PRN Reason: Pain, severe (8-10) Stop: 09/30/18 08:04 Last Admin: 09/27/18 08:56 Dose: 1 tab Pantoprazole Sodium (Protonix Ec Tab) 40 mg PO DAILY [facility] Last Admin: 09/27/18 09:00 Dose: 40 mg Pregabalin (Lyrica) 50 mg PO TID [facility] Last Admin: 09/27/18 13:00 Dose: 50 mg Pregabalin (Lyrica) 50 mg PO HS [facility] Last Admin: 09/25/18 22:44 Dose: 50 mg Promethazine HCl/Codeine (Phenergan/Codeine Oral Syrup) 5 ml PO Q6 PRN PRN Reason: Cough Last Admin: 09/27/18 10:12 Dose: 5 ml Silver Sulfadiazine (Silvadene 1% 50 Gm) 1 applic TOP DAILY [facility] Last Admin: 09/27/18 10:17 Dose: 1 applic - Labs Labs: 09/27/18 05:20 09/27/18 05:20 PT 12.6 Seconds (9.8-13.1) 09/20/18 18:30 INR 1.1 09/20/18 18:30 APTT 35.9 Seconds (25.6-37.1) 09/20/18 18:30 - Constitutional Appears: No Acute Distress - Head Exam Head Exam: NORMAL INSPECTION - Eye Exam Eye Exam: PERRL - ENT Exam ENT Exam: Normal Exam - Neck Exam Neck Exam: Normal Inspection - Respiratory Exam Respiratory Exam: Rhonchi (scattered), NORMAL BREATHING PATTERN - Cardiovascular Exam Cardiovascular Exam: REGULAR RHYTHM - GI/Abdominal Exam GI & Abdominal Exam: Soft, Normal Bowel Sounds - Extremities Exam Additional comments: R foot dressing - Back Exam Back Exam: NORMAL INSPECTION - Neurological Exam Neurological Exam: Alert, Awake, Oriented x3 Additional comments: No focal motor deficit, decreased sensation on BLE/feet. - Psychiatric Exam Psychiatric exam: Anxious, Depressed - Skin Skin Exam: Warm Assessment and Plan (1) Cellulitis and abscess of toe of right foot Assessment & Plan: Corynebacterium , E Coli , on Merren, Vanco Status: Acute (2) Foot ulcer, right Assessment & Plan: R Hallux Status: Acute (3) Arterial occlusion, lower extremity Status: Acute (4) COPD exacerbation Status: Acute (5) Diabetic neuropathy Status: Acute - Assessment and Plan (Free Text) Plan: continue Merren, Vanco, DuoNeb, Solu Medrol and rest off Tx, f/u [facility] for completion of [facility] Tx
--- NOTE | 2018-09-27 15:54 | MRI ---
Date of service: 09/21/2018 PROCEDURE: MRI RIGHT FOOT WITHOUT CONTRAST HISTORY: R Hallux Ulcer. R/O or In OM COMPARISON: Right foot radiographs 09/20/2018. TECHNIQUE: MR examination of the right foot was performed focusing primarily on the anterior and midfoot anatomy due to site of patient's pathology suspicious for osteomyelitis in this patient with a right hallux ulcer. Multiplanar reformatted dataset provided with no intravenous gadolinium administered as per request. FINDINGS: Examination reveals increased long TR signal within the distal phalanx of the great toe without destruction appreciated throughout the cortex or medullary cavity. This is a cleared difference in signal compared to the proximal phalanx and also the 1st metatarsal bone and is suspicious for osteomyelitis. No abscess is appreciated local to the great toe. Multiple hammertoe deformities are appreciated throughout the right foot diffusely and no additional edema pattern is appreciate that would suggest osteomyelitis throughout the midfoot and forefoot foot bony anatomy. Moderate subcutaneous soft tissue edema surrounds the great toe as well as the forefoot and midfoot dorsal soft tissues suggestive of cellulitis. Degenerative cortical sclerosis appreciate throughout the joints of the forefoot and midfoot diffusely with subchondral cyst formation present at the medial cuneiform articulation with the 1st metatarsal bone. Visualized plantar plate appears unremarkable. Flexor and extensor tendons appear nonfocal as imaged. IMPRESSION: Findings suspicious for osteomyelitis affecting the distal phalanx great toe without bony erosion occurring at this time. Remaining bony elements reflect degenerative changes at the associated joints but without additional pattern that would suggest osteomyelitis otherwise. Mild great toe and dorsal forefoot cellulitis changes are suggested. Discordant preliminary report from [facility] disagree with impression 3. In preliminary report suggesting no osteomyelitis), 09/13/2018 9:29 p.m...
[2018-09-27] MEDS: Insulin Detemir 100 Units/ml Inj SC SCH (21:33)
[2018-09-27] MEDS: Enoxaparin 80 mg Syringe SC SCH (22:00)
[2018-09-28] MEDS: Albuterol-Ipratrop 3 mg / 0.5 (3 ml) UD INH SCH ×7 (00:34→23:22)
[2018-09-28] MEDS: Meropenem 1 GM in Sodium Chloride 0.9% 100 ML IVPB SCH ×4 (01:49→16:04)
[2018-09-28] MEDS: Promethazine/Cod 6.25mg-10mg/5ml Syr UD PO PRN (03:52)
[2018-09-28] MEDS: Insulin Regular 100 units/ml SC SCH ×4 (06:56→22:00)
--- NOTE | 2018-09-28 08:31 | CP.PCM.PN ---
Subjective - Date & Time of Evaluation Date of Evaluation: 09/28/18 Time of Evaluation: 08:31 - Subjective Subjective: Podiatry progress note for Dr. Marks 78F seen and evaluated at bedside. Daughter present bedside. Resting comfortably. Patient had PICC line placed. States she is in mild pain to the hallux. Denies N/V/F/C/SOB/CP and has no other acute complaints. Patients daughter states she is being transferred to rehab center today. Objective - Vital Signs/Intake and Output Vital Signs (last 24 hours): Temp Pulse Resp BP Pulse Ox 98.0 F 94 H 18 146/71 99 09/28/18 00:14 09/28/18 00:14 09/28/18 00:14 09/28/18 00:14 09/28/18 00:14 - Medications Medications: Current Medications Acetaminophen (Tylenol 325mg Tab) 650 mg PO Q4 PRN PRN Reason: Fever >100.4 F Last Admin: 09/22/18 01:06 Dose: 650 mg Albuterol/Ipratropium (Duoneb 3 Mg/0.5 Mg (3 Ml) Ud) 3 ml INH RQ4 [facility] Last Admin: 09/28/18 07:30 Dose: 3 ml Amlodipine Besylate (Norvasc) 10 mg PO DAILY [facility] Last Admin: 09/27/18 09:00 Dose: 10 mg Atorvastatin Calcium (Lipitor) 40 mg PO DAILY [facility] Last Admin: 09/27/18 12:58 Dose: 40 mg Benzonatate (Tessalon Perles) 100 mg PO Q8 PRN PRN Reason: Cough Last Admin: 09/27/18 09:04 Dose: 100 mg Cyclobenzaprine HCl (Flexeril) 5 mg PO TID [facility] Last Admin: 09/23/18 16:15 Dose: Not Given Dextrose (Dextrose 50% Inj) 0 ml IV STAT PRN; Protocol PRN Reason: Hypoglycemia Protocol Dextrose (Glutose 15) 0 gm PO ONCE PRN; Protocol PRN Reason: Hypoglycemia Protocol Docusate Sodium (Colace) 100 mg PO BID [facility] Last Admin: 09/27/18 16:30 Dose: 100 mg Enoxaparin Sodium (Lovenox) 70 mg SC HS [facility]; Protocol Last Admin: 09/27/18 22:00 Dose: 70 mg Ergocalciferol (Drisdol 50,000 Intl Units Cap) 1 cap PO QWK [facility] Last Admin: 09/21/18 09:01 Dose: 1 cap Glucagon (Glucagen Diagnostic Kit) 0 mg IM STAT PRN; Protocol PRN Reason: Hypoglycemia Protocol Guaifenesin/Dextromethorphan (Mucinex-Dm 600-30 Mg) 1 tab PO BID [facility] Last Admin: 09/27/18 16:32 Dose: 1 tab Vancomycin HCl 1 gm/ Sodium (Chloride) 250 mls @ 166.667 mls/hr IVPB DAILY [facility]; Protocol Last Admin: 09/27/18 13:02 Dose: 166.667 mls/hr Meropenem 1 gm/ Sodium (Chloride) 100 mls @ 100 mls/hr IVPB Q8 [facility]; Protocol Last Admin: 09/28/18 01:50 Dose: 100 mls/hr Insulin Detemir (Levemir) 25 units SC HS [facility] Last Admin: 09/27/18 21:33 Dose: 25 u Insulin Human Regular (Humulin R) 0 units SC ACHS [facility]; Protocol Last Admin: 09/28/18 06:56 Dose: 8 units Methylprednisolone (Solu-Medrol) 40 mg IV Q12H [facility] Last Admin: 09/27/18 21:30 Dose: 40 mg Mirtazapine (Remeron) 15 mg PO HS [facility] Last Admin: 09/27/18 21:30 Dose: 15 mg Montelukast Sodium (Singulair) 10 mg PO DAILY [facility] Last Admin: 09/27/18 09:03 Dose: 10 mg Ondansetron HCl (Zofran Odt) 4 mg PO Q8H PRN PRN Reason: Nausea/Vomiting Last Admin: 09/25/18 08:56 Dose: 4 mg Oxycodone/Acetaminophen (Percocet 5/325 Mg Tab) 1 tab PO Q6 PRN PRN Reason: Pain, severe (8-10) Stop: 09/30/18 08:04 Last Admin: 09/27/18 08:56 Dose: 1 tab Pantoprazole Sodium (Protonix Ec Tab) 40 mg PO DAILY [facility] Last Admin: 09/27/18 09:00 Dose: 40 mg Pregabalin (Lyrica) 50 mg PO TID [facility] Last Admin: 09/27/18 16:30 Dose: 50 mg Pregabalin (Lyrica) 50 mg PO HS [facility] Last Admin: 09/27/18 21:30 Dose: 50 mg Promethazine HCl/Codeine (Phenergan/Codeine Oral Syrup) 5 ml PO Q6 PRN PRN Reason: Cough Last Admin: 09/28/18 03:52 Dose: 5 ml Silver Sulfadiazine (Silvadene 1% 50 Gm) 1 applic TOP DAILY [facility] Last Admin: 09/27/18 10:17 Dose: 1 applic - Labs Labs: 09/27/18 05:20 09/27/18 05:20 PT 12.6 Seconds (9.8-13.1) 09/20/18 18:30 INR 1.1 09/20/18 18:30 APTT 35.9 Seconds (25.6-37.1) 09/20/18 18:30 - Constitutional Appears: Non-toxic, No Acute Distress - Head Exam Head Exam: ATRAUMATIC, NORMOCEPHALIC - Extremities Exam Additional comments: LE focused VASC: R DP pulses very faintly palpable R PT pulse is palpable 1/4, L DP/PT 2/4. Cap refill almost 3 sec to all digits. Temp gradient warm to warmer on the R side and warm to cool on the left side from proximal to distal. Non pitting edema noted on the right foot up to the ankle - improved. Erythema extending from the R hallux to the R 1st MPJ - improved. Small superficial varicosities noted to the L foot and ankle NEURO: Gross and Protective sensation are grossly diminished. DERM: an ulcer measuring 1.2X1.2X0.3cm noted in the nail bed of the R hallux. negative purulent discharge, positive probe to bone, No malodor, No tracking or undermining. Base is granular: after debridement of necrotic eschar bone is exposed with granular base and bleeding tissue present; improving Erythema R hallux to the R 1st MPJ. Positive clinical signs of active infection. MSK: Mild pain to palpation of the R hallux. Muscle power intact 5/5 to all groups. - Neurological Exam Neurological Exam: Alert, Awake, Oriented x3 - Psychiatric Exam Psychiatric exam: Normal Affect, Normal Mood Assessment and Plan - Assessment and Plan (Free Text) Assessment: 78 F with R hallux infected ulcer and cellulitis Plan: Patient seen and evaluated Discussed in detail with Dr. Marks Afebrile, WBC 15.3 Wound Cx: E. Coli, Corneybacterium species R foot X-ray: Soft tissue swelling without acute articular or osseous anomalies. R foot MRI: mild inflammation at site of ulceration, despite motion artifact, no definite evidence of osteomyelitis is appreciated, mild thinning of skin RLE arterial duplex: Inflow disease with high common femoral artery flow, R common femoral artery and SFA have atherosclerotic disease with areas of narrowing and stenosis. Flow is identified in the popliteal, posterior tibial and DP arteries. ESR: 92 (09/21/18) CRP: 18.30 Wound site cleansed with sterile saline and dressed with SSD and DSD Patient is on Vanco/meropenem ID consulted: recommendations appreciated - continue vanc and meropenem for 14 day course of each Vascular sx consulted: all recommendations appreciated Patient to ambulate in the surgical shoe all the times Patient is stable for discharge from podiatry standpoint with ID recommendations of medication, will f/u outpatient with Dr. Marks for further treatment of wound Dressing instructions: Silvadene and DSD with KAYCE, surgical shoe for ambulation at all times Podiatry will continue to follow up the patient while in house
[2018-09-28] MEDS: guaiFENesin-DM 600-30 mg ER Tab PO SCH ×2 (09:09→16:02)
[2018-09-28] MEDS: Pantoprazole 40 mg EC Tab PO SCH (09:10)
[2018-09-28] MEDS: Silver Sulfadiazine 1% CREAM (50 gm) TOP SCH (09:11)
[2018-09-28] MEDS: MethylPREDNISolone 40 mg Vial IV SCH (09:12)
[2018-09-28 09:50] LABS: HEMOGLOBIN 8.3 g/dL (12.0-16.0); MEAN CORPUSCULAR HEMOGLOBIN 28.2 pg (27.0-31.0); MEAN CORPUSCULAR HGB CONC 32.8 g/dL (33.0-37.0); RBC 2.94 Mil/uL (3.80-5.20); RED CELL DISTRIBUTION WIDTH 14.6 % (11.5-14.5); WHITE BLOOD COUNT 11.7 K/uL (4.8-10.8)
[2018-09-28] MEDS ORDERED: Promethazine/Cod 6.25mg-10mg/5ml Syr UD PO PRN (10:53)
--- NOTE | 2018-09-28 10:55 | CP.PCM.PN ---
Objective - Vital Signs/Intake and Output Vital Signs (last 24 hours): Temp Pulse Resp BP Pulse Ox 98.1 F 91 H 20 126/62 96 09/28/18 08:47 09/28/18 09:28 09/28/18 08:47 09/28/18 09:28 09/28/18 08:47 - Medications Medications: Current Medications Acetaminophen (Tylenol 325mg Tab) 650 mg PO Q4 PRN PRN Reason: Fever >100.4 F Last Admin: 09/22/18 01:06 Dose: 650 mg Albuterol/Ipratropium (Duoneb 3 Mg/0.5 Mg (3 Ml) Ud) 3 ml INH RQ4 [facility] Last Admin: 09/28/18 07:30 Dose: 3 ml Amlodipine Besylate (Norvasc) 10 mg PO DAILY [facility] Last Admin: 09/28/18 09:28 Dose: 10 mg Atorvastatin Calcium (Lipitor) 40 mg PO DAILY [facility] Last Admin: 09/28/18 09:08 Dose: 40 mg Benzonatate (Tessalon Perles) 100 mg PO Q8 PRN PRN Reason: Cough Last Admin: 09/27/18 09:04 Dose: 100 mg Cyclobenzaprine HCl (Flexeril) 5 mg PO TID [facility] Last Admin: 09/23/18 16:15 Dose: Not Given Dextrose (Dextrose 50% Inj) 0 ml IV STAT PRN; Protocol PRN Reason: Hypoglycemia Protocol Dextrose (Glutose 15) 0 gm PO ONCE PRN; Protocol PRN Reason: Hypoglycemia Protocol Docusate Sodium (Colace) 100 mg PO BID [facility] Last Admin: 09/28/18 09:05 Dose: 100 mg Enoxaparin Sodium (Lovenox) 70 mg SC HS [facility]; Protocol Last Admin: 09/27/18 22:00 Dose: 70 mg Ergocalciferol (Drisdol 50,000 Intl Units Cap) 1 cap PO QWK [facility] Last Admin: 09/21/18 09:01 Dose: 1 cap Glucagon (Glucagen Diagnostic Kit) 0 mg IM STAT PRN; Protocol PRN Reason: Hypoglycemia Protocol Guaifenesin/Dextromethorphan (Mucinex-Dm 600-30 Mg) 1 tab PO BID [facility] Last Admin: 09/28/18 09:09 Dose: 1 tab Vancomycin HCl 1 gm/ Sodium (Chloride) 250 mls @ 166.667 mls/hr IVPB DAILY [facility]; Protocol Last Admin: 09/27/18 13:02 Dose: 166.667 mls/hr Meropenem 1 gm/ Sodium (Chloride) 100 mls @ 100 mls/hr IVPB Q8 [facility]; Protocol Last Admin: 09/28/18 09:19 Dose: 100 mls/hr Insulin Detemir (Levemir) 25 units SC [facility] Last Admin: 09/27/18 21:33 Dose: 25 u Insulin Human Regular (Humulin R) 0 units SC ACHS [facility]; Protocol Last Admin: 09/28/18 06:56 Dose: 8 units Methylprednisolone (Solu-Medrol) 40 mg IV Q12H [facility] Last Admin: 09/28/18 09:12 Dose: 40 mg Mirtazapine (Remeron) 15 mg PO [facility] Last Admin: 09/27/18 21:30 Dose: 15 mg Montelukast Sodium (Singulair) 10 mg PO DAILY [facility] Last Admin: 09/28/18 09:12 Dose: 10 mg Ondansetron HCl (Zofran Odt) 4 mg PO Q8H PRN PRN Reason: Nausea/Vomiting Last Admin: 09/25/18 08:56 Dose: 4 mg Oxycodone/Acetaminophen (Percocet 5/325 Mg Tab) 1 tab PO Q6 PRN PRN Reason: Pain, severe (8-10) Stop: 09/30/18 08:04 Last Admin: 09/27/18 08:56 Dose: 1 tab Pantoprazole Sodium (Protonix Ec Tab) 40 mg PO DAILY [facility] Last Admin: 09/28/18 09:10 Dose: 40 mg Pregabalin (Lyrica) 50 mg PO TID [facility] Last Admin: 09/28/18 09:18 Dose: 50 mg Pregabalin (Lyrica) 50 mg PO [facility] Last Admin: 09/27/18 21:30 Dose: 50 mg Promethazine HCl/Codeine (Phenergan/Codeine Oral Syrup) 5 ml PO Q6 PRN PRN Reason: Cough Last Admin: 09/28/18 03:52 Dose: 5 ml Promethazine HCl/Codeine (Phenergan/Codeine Oral Syrup) 10 ml PO Q6 PRN PRN Reason: Cough Silver Sulfadiazine (Silvadene 1% 50 Gm) 1 applic TOP DAILY [facility] Last Admin: 09/28/18 09:11 Dose: Not Given - Labs Labs: 09/28/18 09:30 09/27/18 05:20 PT 12.6 Seconds (9.8-13.1) 09/20/18 18:30 INR 1.1 09/20/18 18:30 APTT 35.9 Seconds (25.6-37.1) 09/20/18 18:30 Assessment and Plan (1) Cellulitis and abscess of toe of right foot Status: Acute (2) Foot ulcer, right Status: Acute (3) Arterial occlusion, lower extremity Status: Acute (4) COPD exacerbation Status: Acute (5) Diabetic neuropathy Status: Acute
--- NOTE | 2018-09-28 11:46 | CP.PCM.PCO ---
Assessment & Plan - Assessment and Plan (Free Text) Assessment: MRI LE Report reviewed and noted to be suspicious for osteomyelitis of distal phalynx R toe wound cx ESBL d/w Podiatry and pt. will require 6 weeks total of iv abx pt . on day #6/42 of Merrem and day # 8/42 of Vanco; cont for 5 more weeks of both iv abx monitor vanco trough, cbc, cmp for PICC insertion today then d/c to [facility] under pending Auth
[2018-09-28] MEDS ORDERED: Lidocaine 1% Inj (20ml) ONE (13:24)
--- NOTE | 2018-09-28 14:11 | VASCULAR ---
PROCEDURE: Date of procedure: 09/28/2018 Procedure: 1. Placement of a right arm PICC with ultrasound and fluoroscopic guidance, CPT 29473 2. PICC tip confirmation with spot radiograph and is in the superior vena cava Medications: 1 percent lidocaine Total Fluoro time: 5.5 Seconds Radiation: 0.81 MGy EBL: 2 cc HISTORY: Infection requiring long-term IV antibiotics TECHNIQUE: Following informed consent and procedure time-out, the patient was placed supine on the interventional table and the right arm prepped and draped in the usual sterile fashion. Ultrasound showed a patent and compressible right basilic vein. After the skin was anesthetized with lidocaine, the basilic vein was accessed with micro micropuncture technique using ultrasound guidance. A guidewire was then advanced under fluoroscopic guidance into the superior vena cava. An image documenting ultrasound guidance for vascular access was permanently saved. The length of the single-lumen 4 [place] PICC was trimmed to 33 centimeters and advanced through a peel-away sheath. The PICC was position with tip of PICC confirm a spot radiograph the superior vena cava. The PICC was secured to the patient's skin. The PICC was flushed. A biopatch and sterile dressing was applied. IMPRESSION: Placement of a single-lumen 4 [place] PICC trimmed to 33 centimeters via right basilic vein. The tip of the PICC is confirmed with spot radiograph and is in the superior vena cava.
--- NOTE | 2018-09-28 14:44 | PCM.SURG1 ---
Surgeon's Initial Post Op Note - Surgeon's Notes Surgeon: Andi Madrigal MD [employer] Hand: NONE Type of Anesthesia: Local Pre-Operative Diagnosis: Infection Operative Findings: Patent right basilic vein Post-Operative Diagnosis: Infection Operation Performed: PICC placement right arm Specimen/Specimens Removed: none Estimated Blood Loss: EBL {In ML}: 2 Blood Products Given: N/A Drains Used: No Drains Post-Op Condition: Fair Date of Surgery/Procedure: 09/28/18 Time of Surgery/Procedure: 14:00
[2018-09-28] MEDS ORDERED: Insulin Regular 100 units/ml SC ONE ×2 (17:07→18:29)
--- NOTE | 2018-09-28 20:08 | CP.PCM.PN ---
Subjective - Date & Time of Evaluation Date of Evaluation: 09/28/18 Time of Evaluation: 10:00 - Subjective Subjective: no AD, Dry cough, N/C of R foot pain Objective - Vital Signs/Intake and Output Vital Signs (last 24 hours): Temp Pulse Resp BP Pulse Ox 98.1 F 91 H 20 126/62 96 09/28/18 08:47 09/28/18 09:28 09/28/18 08:47 09/28/18 09:28 09/28/18 08:47 - Medications Medications: Current Medications Acetaminophen (Tylenol 325mg Tab) 650 mg PO Q4 PRN PRN Reason: Fever >100.4 F Last Admin: 09/22/18 01:06 Dose: 650 mg Albuterol/Ipratropium (Duoneb 3 Mg/0.5 Mg (3 Ml) Ud) 3 ml INH RQ4 [facility] Last Admin: 09/28/18 15:32 Dose: 3 ml Amlodipine Besylate (Norvasc) 10 mg PO DAILY [facility] Last Admin: 09/28/18 09:28 Dose: 10 mg Atorvastatin Calcium (Lipitor) 40 mg PO DAILY [facility] Last Admin: 09/28/18 09:08 Dose: 40 mg Benzonatate (Tessalon Perles) 100 mg PO Q8 PRN PRN Reason: Cough Last Admin: 09/27/18 09:04 Dose: 100 mg Cyclobenzaprine HCl (Flexeril) 5 mg PO TID [facility] Last Admin: 09/23/18 16:15 Dose: Not Given Dextrose (Dextrose 50% Inj) 0 ml IV STAT PRN; Protocol PRN Reason: Hypoglycemia Protocol Dextrose (Glutose 15) 0 gm PO ONCE PRN; Protocol PRN Reason: Hypoglycemia Protocol Docusate Sodium (Colace) 100 mg PO BID [facility] Last Admin: 09/28/18 16:00 Dose: 100 mg Enoxaparin Sodium (Lovenox) 70 mg SC HS [facility]; Protocol Last Admin: 09/27/18 22:00 Dose: 70 mg Ergocalciferol (Drisdol 50,000 Intl Units Cap) 1 cap PO QWK [facility] Last Admin: 09/21/18 09:01 Dose: 1 cap Glucagon (Glucagen Diagnostic Kit) 0 mg IM STAT PRN; Protocol PRN Reason: Hypoglycemia Protocol Guaifenesin/Dextromethorphan (Mucinex-Dm 600-30 Mg) 1 tab PO BID [facility] Last Admin: 09/28/18 16:02 Dose: 1 tab Vancomycin HCl 1 gm/ Sodium (Chloride) 250 mls @ 166.667 mls/hr IVPB DAILY [facility]; Protocol Last Admin: 09/28/18 11:07 Dose: 166.667 mls/hr Meropenem 1 gm/ Sodium (Chloride) 100 mls @ 100 mls/hr IVPB Q8 [facility]; Protocol Last Admin: 09/28/18 16:04 Dose: 100 mls/hr Insulin Detemir (Levemir) 25 units SC [facility] Last Admin: 09/27/18 21:33 Dose: 25 u Insulin Human Regular (Humulin R) 0 units SC ACHS [facility]; Protocol Last Admin: 09/28/18 16:37 Dose: 12 units Methylprednisolone (Solu-Medrol) 40 mg IV Q12H [facility] Last Admin: 09/28/18 09:12 Dose: 40 mg Mirtazapine (Remeron) 15 mg PO [facility] Last Admin: 09/27/18 21:30 Dose: 15 mg Montelukast Sodium (Singulair) 10 mg PO DAILY [facility] Last Admin: 09/28/18 09:12 Dose: 10 mg Ondansetron HCl (Zofran Odt) 4 mg PO Q8H PRN PRN Reason: Nausea/Vomiting Last Admin: 09/25/18 08:56 Dose: 4 mg Oxycodone/Acetaminophen (Percocet 5/325 Mg Tab) 1 tab PO Q6 PRN PRN Reason: Pain, severe (8-10) Stop: 09/30/18 08:04 Last Admin: 09/27/18 08:56 Dose: 1 tab Pantoprazole Sodium (Protonix Ec Tab) 40 mg PO DAILY [facility] Last Admin: 09/28/18 09:10 Dose: 40 mg Pregabalin (Lyrica) 50 mg PO TID [facility] Last Admin: 09/28/18 17:38 Dose: 50 mg Pregabalin (Lyrica) 50 mg PO HS [facility] Last Admin: 09/27/18 21:30 Dose: 50 mg Promethazine HCl/Codeine (Phenergan/Codeine Oral Syrup) 5 ml PO Q6 PRN PRN Reason: Cough Last Admin: 09/28/18 03:52 Dose: 5 ml Promethazine HCl/Codeine (Phenergan/Codeine Oral Syrup) 10 ml PO Q6 PRN PRN Reason: Cough Silver Sulfadiazine (Silvadene 1% 50 Gm) 1 applic TOP DAILY [facility] Last Admin: 09/28/18 09:11 Dose: Not Given - Labs Labs: 09/28/18 09:30 09/27/18 05:20 PT 12.6 Seconds (9.8-13.1) 09/20/18 18:30 INR 1.1 09/20/18 18:30 APTT 35.9 Seconds (25.6-37.1) 09/20/18 18:30 - Constitutional Appears: No Acute Distress - Head Exam Head Exam: NORMAL INSPECTION - Eye Exam Eye Exam: PERRL - ENT Exam ENT Exam: Normal Exam - Neck Exam Neck Exam: Normal Inspection - Respiratory Exam Respiratory Exam: Decreased Breath Sounds (at bases), Rhonchi (scattered) - Cardiovascular Exam Cardiovascular Exam: REGULAR RHYTHM - GI/Abdominal Exam GI & Abdominal Exam: Soft, Normal Bowel Sounds - Back Exam Back Exam: NORMAL INSPECTION - Neurological Exam Neurological Exam: Alert, Oriented x3 Additional comments: no motor deficit, decreased sensation B/L feet - Psychiatric Exam Psychiatric exam: Anxious - Skin Skin Exam: Warm Assessment and Plan (1) Cellulitis and abscess of toe of right foot Status: Acute (2) Foot ulcer, right Status: Acute (3) Arterial occlusion, lower extremity Status: Acute (4) COPD exacerbation Status: Acute (5) Diabetic neuropathy Status: Acute (6) Diabetes mellitus with hyperglycemia Status: Acute - Assessment and Plan (Free Text) Plan: Mariajose Cleary DuoNeb, Prometh with Codeine, Mucinex, MRI final report 09-27-17 OM distal Phalanx R Hallux, Patient to complete 6 weeks of IV Jovani Clearyo, to have PICC line, Monitor BS, continue Humulin Accu Check, taper Solu Medrol
[2018-09-28] MEDS: Budesonide 0.5 mg/2 ml Inhal Susp UD IH SCH (21:20)
[2018-09-28] MEDS: Enoxaparin 80 mg Syringe SC SCH (21:45)
[2018-09-28] MEDS: Insulin Detemir 100 Units/ml Inj SC SCH (21:45)
[2018-09-29] MEDS: Meropenem 1 GM in Sodium Chloride 0.9% 100 ML IVPB SCH ×4 (00:17→17:16)
[2018-09-29] MEDS: Albuterol-Ipratrop 3 mg / 0.5 (3 ml) UD INH SCH ×5 (04:05→20:04)
[2018-09-29 05:03] LABS: HEMOGLOBIN 8.4 g/dL (12.0-16.0); MEAN CORPUSCULAR HEMOGLOBIN 27.7 pg (27.0-31.0); MEAN CORPUSCULAR HGB CONC 32.2 g/dL (33.0-37.0); RBC 3.02 Mil/uL (3.80-5.20); RED CELL DISTRIBUTION WIDTH 14.3 % (11.5-14.5)
[2018-09-29 05:29] LABS: ALB/GLOB RATIO 1.1 (1.0-2.1); ALBUMIN 3.9 g/dL (3.5-5.0); CALCIUM 9.9 mg/dL (8.4-10.2)
[2018-09-29] MEDS: Insulin Regular 100 units/ml SC SCH ×5 (06:47→22:40)
[2018-09-29] MEDS: Budesonide 0.5 mg/2 ml Inhal Susp UD IH SCH ×2 (07:36→20:04)
[2018-09-29] MEDS: Silver Sulfadiazine 1% CREAM (50 gm) TOP SCH (08:49)
[2018-09-29] MEDS ORDERED: MethylPREDNISolone 40 mg Vial IVP SCH (09:00)
[2018-09-29] MEDS ORDERED: methylPREDNISolone 20 MG in Sodium Chloride 0.9% 50 ML IV SCH (09:00)
[2018-09-29] MEDS: guaiFENesin-DM 600-30 mg ER Tab PO SCH ×3 (09:01→17:16)
[2018-09-29] MEDS: Pantoprazole 40 mg EC Tab PO SCH ×2 (09:02→09:05)
--- NOTE | 2018-09-29 11:37 | CP.PCM.PN ---
Subjective - Date & Time of Evaluation Date of Evaluation: 09/29/18 Time of Evaluation: 11:37 - Subjective Subjective: Podiatry progress note for Dr. Marks 78 year old female patient seen and evaluated at bedside. Patient resting comfortably and in NAD. Per nursing, patient's glucose level was elevated delaying her transfer to subacute rehab at this time. She reports mild pain to her foot at this time. Denies N/V/F/C/SOB/CP and has no other acute complaints. Objective - Vital Signs/Intake and Output Vital Signs (last 24 hours): Temp Pulse Resp BP Pulse Ox 98.1 F 88 20 162/73 H 97 09/29/18 08:12 09/29/18 09:03 09/29/18 08:12 09/29/18 09:03 09/29/18 08:12 - Medications Medications: Current Medications Acetaminophen (Tylenol 325mg Tab) 650 mg PO Q4 PRN PRN Reason: Fever >100.4 F Last Admin: 09/22/18 01:06 Dose: 650 mg Albuterol/Ipratropium (Duoneb 3 Mg/0.5 Mg (3 Ml) Ud) 3 ml INH RQ4 [facility] Last Admin: 09/29/18 07:35 Dose: 3 ml Amlodipine Besylate (Norvasc) 10 mg PO DAILY [facility] Last Admin: 09/29/18 09:03 Dose: 10 mg Atorvastatin Calcium (Lipitor) 40 mg PO DAILY [facility] Last Admin: 09/29/18 09:04 Dose: 40 mg Benzonatate (Tessalon Perles) 100 mg PO Q8 PRN PRN Reason: Cough Last Admin: 09/27/18 09:04 Dose: 100 mg Budesonide (Pulmicort Respules) 0.5 mg IH RBID [facility] Last Admin: 09/29/18 07:36 Dose: 0.5 mg Cyclobenzaprine HCl (Flexeril) 5 mg PO TID [facility] Last Admin: 09/23/18 16:15 Dose: Not Given Dextrose (Dextrose 50% Inj) 0 ml IV STAT PRN; Protocol PRN Reason: Hypoglycemia Protocol Dextrose (Glutose 15) 0 gm PO ONCE PRN; Protocol PRN Reason: Hypoglycemia Protocol Docusate Sodium (Colace) 100 mg PO BID [facility] Last Admin: 09/29/18 09:04 Dose: 100 mg Enoxaparin Sodium (Lovenox) 70 mg SC HS [facility]; Protocol Last Admin: 09/28/18 21:45 Dose: 70 mg Ergocalciferol (Drisdol 50,000 Intl Units Cap) 1 cap PO QWK [facility] Last Admin: 09/21/18 09:01 Dose: 1 cap Glucagon (Glucagen Diagnostic Kit) 0 mg IM STAT PRN; Protocol PRN Reason: Hypoglycemia Protocol Guaifenesin/Dextromethorphan (Mucinex-Dm 600-30 Mg) 1 tab PO BID [facility] Last Admin: 09/29/18 09:05 Dose: 1 tab Vancomycin HCl 1 gm/ Sodium (Chloride) 250 mls @ 166.667 mls/hr IVPB DAILY [facility]; Protocol Last Admin: 09/28/18 11:07 Dose: 166.667 mls/hr Meropenem 1 gm/ Sodium (Chloride) 100 mls @ 100 mls/hr IVPB Q8 [facility]; Protocol Last Admin: 09/29/18 09:04 Dose: 100 mls/hr Insulin Detemir (Levemir) 25 units SC [facility] Last Admin: 09/28/18 21:45 Dose: 25 u Insulin Human Regular (Humulin R) 0 units SC ACHS [facility]; Protocol Last Admin: 09/29/18 06:47 Dose: 10 units Methylprednisolone (Solu-Medrol) 20 mg IVP DAILY [facility] Last Admin: 09/29/18 09:01 Dose: 20 mg Mirtazapine (Remeron) 15 mg PO HS [facility] Last Admin: 09/28/18 21:44 Dose: 15 mg Montelukast Sodium (Singulair) 10 mg PO DAILY [facility] Last Admin: 09/29/18 09:06 Dose: 10 mg Ondansetron HCl (Zofran Odt) 4 mg PO Q8H PRN PRN Reason: Nausea/Vomiting Last Admin: 09/25/18 08:56 Dose: 4 mg Oxycodone/Acetaminophen (Percocet 5/325 Mg Tab) 1 tab PO Q6 PRN PRN Reason: Pain, severe (8-10) Stop: 09/30/18 08:04 Last Admin: 09/27/18 08:56 Dose: 1 tab Pantoprazole Sodium (Protonix Ec Tab) 40 mg PO DAILY [facility] Last Admin: 09/29/18 09:05 Dose: 40 mg Pregabalin (Lyrica) 50 mg PO TID [facility] Last Admin: 09/29/18 09:03 Dose: 50 mg Pregabalin (Lyrica) 50 mg PO HS [facility] Last Admin: 09/28/18 21:45 Dose: 50 mg Promethazine HCl/Codeine (Phenergan/Codeine Oral Syrup) 5 ml PO Q6 PRN PRN Reason: Cough Last Admin: 09/28/18 03:52 Dose: 5 ml Promethazine HCl/Codeine (Phenergan/Codeine Oral Syrup) 10 ml PO Q6 PRN PRN Reason: Cough Silver Sulfadiazine (Silvadene 1% 50 Gm) 1 applic TOP DAILY [facility] Last Admin: 09/29/18 08:49 Dose: Not Given - Labs Labs: 09/29/18 05:00 09/29/18 05:00 PT 12.6 Seconds (9.8-13.1) 09/20/18 18:30 INR 1.1 09/20/18 18:30 APTT 35.9 Seconds (25.6-37.1) 09/20/18 18:30 - Constitutional Appears: Well, Non-toxic, No Acute Distress - Head Exam Head Exam: ATRAUMATIC, NORMOCEPHALIC - Extremities Exam Additional comments: LE focused exam: Vasc: R DP pulses very faintly palpable R PT pulse is palpable 1/4, L DP/PT 2/4. Cap refill almost 3 sec to all digits. Temp gradient warm to warmer on the R side and warm to cool on the left side from proximal to distal. Non pitting edema noted on the right foot up to the ankle - improved. Erythema extending from the R hallux to the R 1st MPJ - improved. Small superficial varicosities noted to the L foot and ankle Ortho: Mild pain to palpation of the R hallux. Muscle power intact 5/5 to all groups. Neuro: Gross and Protective sensation are grossly diminished. Derm: R hallux ulcer measuring approximately 1.2X1.2X0.3cm noted. No purulence appreciated, positive probe to bone, No malodor, No tracking or undermining. Base is granular: after debridement of necrotic eschar bone is exposed with granular base and bleeding tissue present; improving - Neurological Exam Neurological Exam: Alert, Awake, Oriented x3 - Psychiatric Exam Psychiatric exam: Normal Affect, Normal Mood Assessment and Plan - Assessment and Plan (Free Text) Assessment: 78 year old femal patient with R hallux infected ulcer and cellulitis; cellulitis resolving Plan: Patient seen and evaluated Discussed in detail with Dr. Marks Afebrile, WBC 15.3, ESR 92 (09/21), CRP 18.3 Wound Cx: E. Coli, Corneybacterium species R foot X-ray: Soft tissue swelling without acute articular or osseous anomalies. R foot MRI: mild inflammation at site of ulceration, despite motion artifact, no definite evidence of osteomyelitis is appreciated, mild thinning of skin RLE arterial duplex: Inflow disease with high common femoral artery flow, R common femoral artery and SFA have atherosclerotic disease with areas of narrowing and stenosis. Flow is identified in the popliteal, posterior tibial and DP arteries. Wound site cleansed with sterile saline and dressed with SSD and DSD Patient is on Vanco/meropenem ID consulted: recommendations appreciated - continue vanc and meropenem for 14 day course of each Vascular sx consulted: all recommendations appreciated Patient to ambulate in the surgical shoe all the times Patient is stable for discharge from podiatry standpoint with ID recommendations of medication, will f/u outpatient with Dr. Marks for further treatment of wound Dressing instructions: Silvadene and DSD with KAYCE, surgical shoe for ambulation at all times Podiatry will continue to follow up the patient while in house
[2018-09-29] MEDS: Oxycodone/Acetaminophen 5/325 mg Tab PO PRN (13:36)
--- NOTE | 2018-09-29 14:52 | CP.PCM.PN ---
Subjective - Date & Time of Evaluation Date of Evaluation: 09/29/18 Time of Evaluation: 11:50 - Subjective Subjective: no pain R foot, cough improved, no SOB Objective - Vital Signs/Intake and Output Vital Signs (last 24 hours): Temp Pulse Resp BP Pulse Ox 98.1 F 88 20 162/73 H 97 09/29/18 08:12 09/29/18 09:03 09/29/18 08:12 09/29/18 09:03 09/29/18 08:12 - Medications Medications: Current Medications Acetaminophen (Tylenol 325mg Tab) 650 mg PO Q4 PRN PRN Reason: Fever >100.4 F Last Admin: 09/22/18 01:06 Dose: 650 mg Albuterol/Ipratropium (Duoneb 3 Mg/0.5 Mg (3 Ml) Ud) 3 ml INH RQ4 [facility] Last Admin: 09/29/18 12:17 Dose: 3 ml Amlodipine Besylate (Norvasc) 10 mg PO DAILY [facility] Last Admin: 09/29/18 09:03 Dose: 10 mg Atorvastatin Calcium (Lipitor) 40 mg PO DAILY [facility] Last Admin: 09/29/18 09:04 Dose: 40 mg Benzonatate (Tessalon Perles) 100 mg PO Q8 PRN PRN Reason: Cough Last Admin: 09/27/18 09:04 Dose: 100 mg Budesonide (Pulmicort Respules) 0.5 mg IH RBID [facility] Last Admin: 09/29/18 07:36 Dose: 0.5 mg Cyclobenzaprine HCl (Flexeril) 5 mg PO TID [facility] Last Admin: 09/23/18 16:15 Dose: Not Given Dextrose (Dextrose 50% Inj) 0 ml IV STAT PRN; Protocol PRN Reason: Hypoglycemia Protocol Dextrose (Glutose 15) 0 gm PO ONCE PRN; Protocol PRN Reason: Hypoglycemia Protocol Docusate Sodium (Colace) 100 mg PO BID [facility] Last Admin: 09/29/18 09:04 Dose: 100 mg Enoxaparin Sodium (Lovenox) 70 mg SC HS [facility]; Protocol Last Admin: 09/28/18 21:45 Dose: 70 mg Ergocalciferol (Drisdol 50,000 Intl Units Cap) 1 cap PO QWK [facility] Last Admin: 09/21/18 09:01 Dose: 1 cap Glucagon (Glucagen Diagnostic Kit) 0 mg IM STAT PRN; Protocol PRN Reason: Hypoglycemia Protocol Guaifenesin/Dextromethorphan (Mucinex-Dm 600-30 Mg) 1 tab PO BID [facility] Last Admin: 09/29/18 09:05 Dose: 1 tab Vancomycin HCl 1 gm/ Sodium (Chloride) 250 mls @ 166.667 mls/hr IVPB DAILY [facility]; Protocol Last Admin: 09/29/18 13:26 Dose: 166.667 mls/hr Meropenem 1 gm/ Sodium (Chloride) 100 mls @ 100 mls/hr IVPB Q8 [facility]; Protocol Last Admin: 09/29/18 09:04 Dose: 100 mls/hr Insulin Detemir (Levemir) 25 units SC [facility] Last Admin: 09/28/18 21:45 Dose: 25 u Insulin Human Regular (Humulin R) 0 units SC ACHS [facility]; Protocol Insulin Human Regular (Humulin R) 8 units SC AC [facility] Mirtazapine (Remeron) 15 mg PO HS [facility] Last Admin: 09/28/18 21:44 Dose: 15 mg Montelukast Sodium (Singulair) 10 mg PO DAILY [facility] Last Admin: 09/29/18 09:06 Dose: 10 mg Ondansetron HCl (Zofran Odt) 4 mg PO Q8H PRN PRN Reason: Nausea/Vomiting Last Admin: 09/25/18 08:56 Dose: 4 mg Oxycodone/Acetaminophen (Percocet 5/325 Mg Tab) 1 tab PO Q6 PRN PRN Reason: Pain, severe (8-10) Stop: 09/30/18 08:04 Last Admin: 09/29/18 13:36 Dose: 1 tab Pantoprazole Sodium (Protonix Ec Tab) 40 mg PO DAILY [facility] Last Admin: 09/29/18 09:05 Dose: 40 mg Pregabalin (Lyrica) 50 mg PO TID [facility] Last Admin: 09/29/18 13:25 Dose: 50 mg Pregabalin (Lyrica) 50 mg PO HS [facility] Last Admin: 09/28/18 21:45 Dose: 50 mg Promethazine HCl/Codeine (Phenergan/Codeine Oral Syrup) 5 ml PO Q6 PRN PRN Reason: Cough Last Admin: 09/28/18 03:52 Dose: 5 ml Promethazine HCl/Codeine (Phenergan/Codeine Oral Syrup) 10 ml PO Q6 PRN PRN Reason: Cough Silver Sulfadiazine (Silvadene 1% 50 Gm) 1 applic TOP DAILY [facility] Last Admin: 09/29/18 08:49 Dose: Not Given - Labs Labs: 09/29/18 05:00 09/29/18 05:00 PT 12.6 Seconds (9.8-13.1) 09/20/18 18:30 INR 1.1 09/20/18 18:30 APTT 35.9 Seconds (25.6-37.1) 09/20/18 18:30 - Constitutional Appears: No Acute Distress - Head Exam Head Exam: NORMOCEPHALIC - Eye Exam Eye Exam: PERRL - ENT Exam ENT Exam: Normal Exam - Neck Exam Neck Exam: Normal Inspection - Respiratory Exam Respiratory Exam: Decreased Breath Sounds (at bases) - Cardiovascular Exam Cardiovascular Exam: REGULAR RHYTHM - GI/Abdominal Exam GI & Abdominal Exam: Soft, Normal Bowel Sounds - Extremities Exam Additional comments: dressing R foot - Back Exam Back Exam: NORMAL INSPECTION - Neurological Exam Neurological Exam: Alert, Oriented x3 (no focal motor deficit, decreased sensation R L foot) Additional comments: no motor deficit, decreases sensation B/L foot - Skin Skin Exam: Warm Assessment and Plan (1) Cellulitis and abscess of toe of right foot Status: Acute (2) Foot ulcer, right Status: Acute (3) Arterial occlusion, lower extremity Status: Acute (4) COPD exacerbation Status: Acute (5) Diabetic neuropathy Status: Acute (6) Diabetes mellitus with hyperglycemia Status: Acute - Assessment and Plan (Free Text) Plan: Discharge canceled yesterday 2nd to uncontrolled DM, Patient with no compliance with diet, also on SoluMedro, strochad DC , add Pulmicort neb, Humalog AC TID, continue Levemir hs, compliance with diet discussed with Patient
[2018-09-29] MEDS: Enoxaparin 80 mg Syringe SC SCH (21:17)
[2018-09-29] MEDS: Promethazine/Cod 6.25mg-10mg/5ml Syr UD PO PRN (21:18)
[2018-09-29] MEDS: Insulin Detemir 100 Units/ml Inj SC SCH (22:40)
[2018-09-30] MEDS: Meropenem 1 GM in Sodium Chloride 0.9% 100 ML IVPB SCH ×3 (00:49→16:53)
[2018-09-30] MEDS: Albuterol-Ipratrop 3 mg / 0.5 (3 ml) UD INH SCH ×6 (04:24→20:27)
[2018-09-30 08:35] VITALS: RESP 20
[2018-09-30] MEDS: Silver Sulfadiazine 1% CREAM (50 gm) TOP SCH (08:56)
[2018-09-30] MEDS: Insulin Regular 100 units/ml SC SCH ×7 (08:58→21:46)
[2018-09-30] MEDS: Budesonide 0.5 mg/2 ml Inhal Susp UD IH SCH ×2 (08:58→20:27)
[2018-09-30] MEDS: Pantoprazole 40 mg EC Tab PO SCH (09:02)
[2018-09-30] MEDS: guaiFENesin-DM 600-30 mg ER Tab PO SCH ×2 (09:02→18:34)
[2018-09-30] MEDS: Promethazine/Cod 6.25mg-10mg/5ml Syr UD PO PRN ×2 (11:16→16:30)
--- NOTE | 2018-09-30 15:42 | CP.PCM.PN ---
Subjective - Date & Time of Evaluation Date of Evaluation: 09/30/18 Time of Evaluation: 13:20 - Subjective Subjective: F/U I&D R great toe Pt awake, no A/D, no c/o of pain in R foot, no SOB. Objective - Vital Signs/Intake and Output Vital Signs (last 24 hours): Temp Pulse Resp BP Pulse Ox 97.9 F 89 20 144/73 97 09/30/18 08:35 09/30/18 09:02 09/30/18 08:35 09/30/18 09:02 09/30/18 08:35 - Medications Medications: Current Medications Acetaminophen (Tylenol 325mg Tab) 650 mg PO Q4 PRN PRN Reason: Fever >100.4 F Last Admin: 09/22/18 01:06 Dose: 650 mg Albuterol/Ipratropium (Duoneb 3 Mg/0.5 Mg (3 Ml) Ud) 3 ml INH RQ4 [facility] Last Admin: 09/30/18 15:40 Dose: 3 ml Amlodipine Besylate (Norvasc) 10 mg PO DAILY [facility] Last Admin: 09/30/18 09:02 Dose: 10 mg Atorvastatin Calcium (Lipitor) 40 mg PO DAILY [facility] Last Admin: 09/30/18 09:02 Dose: 40 mg Benzonatate (Tessalon Perles) 100 mg PO Q8 PRN PRN Reason: Cough Last Admin: 09/27/18 09:04 Dose: 100 mg Budesonide (Pulmicort Respules) 0.5 mg IH RBID [facility] Last Admin: 09/30/18 08:58 Dose: 0.5 mg Cyclobenzaprine HCl (Flexeril) 5 mg PO TID [facility] Last Admin: 09/23/18 16:15 Dose: Not Given Dextrose (Dextrose 50% Inj) 0 ml IV STAT PRN; Protocol PRN Reason: Hypoglycemia Protocol Dextrose (Glutose 15) 0 gm PO ONCE PRN; Protocol PRN Reason: Hypoglycemia Protocol Docusate Sodium (Colace) 100 mg PO BID [facility] Last Admin: 09/30/18 08:45 Dose: Not Given Ergocalciferol (Drisdol 50,000 Intl Units Cap) 1 cap PO QWK [facility] Last Admin: 09/21/18 09:01 Dose: 1 cap Glucagon (Glucagen Diagnostic Kit) 0 mg IM STAT PRN; Protocol PRN Reason: Hypoglycemia Protocol Guaifenesin/Dextromethorphan (Mucinex-Dm 600-30 Mg) 1 tab PO BID [facility] Last Admin: 09/30/18 09:02 Dose: 1 tab Vancomycin HCl 1 gm/ Sodium (Chloride) 250 mls @ 166.667 mls/hr IVPB DAILY [facility]; Protocol Last Admin: 09/30/18 11:14 Dose: 166.667 mls/hr Meropenem 1 gm/ Sodium (Chloride) 100 mls @ 100 mls/hr IVPB Q8 [facility]; Protocol Last Admin: 09/30/18 09:03 Dose: 100 mls/hr Insulin Detemir (Levemir) 25 units SC HS [facility] Last Admin: 09/29/18 22:40 Dose: 25 u Insulin Human Regular (Humulin R) 0 units SC ACHS [facility]; Protocol Last Admin: 09/30/18 12:16 Dose: 3 units Insulin Human Regular (Humulin R) 8 units SC AC [facility] Last Admin: 09/30/18 12:16 Dose: 8 units Mirtazapine (Remeron) 15 mg PO [facility] Last Admin: 09/29/18 21:19 Dose: 15 mg Montelukast Sodium (Singulair) 10 mg PO DAILY [facility] Last Admin: 09/30/18 09:03 Dose: 10 mg Ondansetron HCl (Zofran Odt) 4 mg PO Q8H PRN PRN Reason: Nausea/Vomiting Last Admin: 09/25/18 08:56 Dose: 4 mg Pantoprazole Sodium (Protonix Ec Tab) 40 mg PO DAILY [facility] Last Admin: 09/30/18 09:02 Dose: 40 mg Pregabalin (Lyrica) 50 mg PO TID [facility] Last Admin: 09/30/18 12:17 Dose: 50 mg Pregabalin (Lyrica) 50 mg PO [facility] Last Admin: 09/29/18 22:40 Dose: 50 mg Promethazine HCl/Codeine (Phenergan/Codeine Oral Syrup) 5 ml PO Q6 PRN PRN Reason: Cough Last Admin: 09/30/18 11:16 Dose: 5 ml Promethazine HCl/Codeine (Phenergan/Codeine Oral Syrup) 10 ml PO Q6 PRN PRN Reason: Cough Last Admin: 09/29/18 21:18 Dose: 10 ml Silver Sulfadiazine (Silvadene 1% 50 Gm) 1 applic TOP DAILY [facility] Last Admin: 09/30/18 08:56 Dose: Not Given - Labs Labs: 09/29/18 05:00 09/29/18 05:00 PT 12.6 Seconds (9.8-13.1) 09/20/18 18:30 INR 1.1 09/20/18 18:30 APTT 35.9 Seconds (25.6-37.1) 09/20/18 18:30 - Constitutional Appears: No Acute Distress - Head Exam Head Exam: NORMAL INSPECTION - Eye Exam Eye Exam: PERRL - ENT Exam ENT Exam: Normal Exam - Neck Exam Neck Exam: Normal Inspection - Respiratory Exam Respiratory Exam: Decreased Breath Sounds (at bases) - Cardiovascular Exam Cardiovascular Exam: REGULAR RHYTHM - GI/Abdominal Exam GI & Abdominal Exam: Soft, Normal Bowel Sounds - Extremities Exam Additional comments: R foot dressing in place - Back Exam Back Exam: NORMAL INSPECTION - Neurological Exam Neurological Exam: Alert, Oriented x3 Additional comments: No focal motor deficit, decreased sensation R-L foot. - Psychiatric Exam Psychiatric exam: Anxious - Skin Skin Exam: Warm Assessment and Plan (1) Cellulitis and abscess of toe of right foot Status: Acute (2) Foot ulcer, right Status: Acute (3) Arterial occlusion, lower extremity Status: Acute (4) COPD exacerbation Status: Acute (5) Diabetic neuropathy Status: Acute (6) Diabetes mellitus with hyperglycemia Status: Acute - Assessment and Plan (Free Text) Plan: BS: 183. Continue Insulin, Vanco, Merren, Pulmicort, Duoneb, Silvadene and rest of Tx.
--- NOTE | 2018-09-30 15:47 | CP.PCM.PN ---
Subjective - Date & Time of Evaluation Date of Evaluation: 09/30/18 Time of Evaluation: 15:45 - Subjective Subjective: Podiatry progress note for Dr. Marks 78 year old female patient seen and evaluated at bedside. Patient resting comfortably and in NAD. No acute events overnight. Denies N/V/F/C/SOB/CP and has no other acute complaints. Objective - Vital Signs/Intake and Output Vital Signs (last 24 hours): Temp Pulse Resp BP Pulse Ox 97.9 F 89 20 144/73 97 09/30/18 08:35 09/30/18 09:02 09/30/18 08:35 09/30/18 09:02 09/30/18 08:35 - Medications Medications: Current Medications Acetaminophen (Tylenol 325mg Tab) 650 mg PO Q4 PRN PRN Reason: Fever >100.4 F Last Admin: 09/22/18 01:06 Dose: 650 mg Albuterol/Ipratropium (Duoneb 3 Mg/0.5 Mg (3 Ml) Ud) 3 ml INH RQ4 [facility] Last Admin: 09/30/18 15:40 Dose: 3 ml Amlodipine Besylate (Norvasc) 10 mg PO DAILY [facility] Last Admin: 09/30/18 09:02 Dose: 10 mg Atorvastatin Calcium (Lipitor) 40 mg PO DAILY [facility] Last Admin: 09/30/18 09:02 Dose: 40 mg Benzonatate (Tessalon Perles) 100 mg PO Q8 PRN PRN Reason: Cough Last Admin: 09/27/18 09:04 Dose: 100 mg Budesonide (Pulmicort Respules) 0.5 mg IH RBID [facility] Last Admin: 09/30/18 08:58 Dose: 0.5 mg Cyclobenzaprine HCl (Flexeril) 5 mg PO TID [facility] Last Admin: 09/23/18 16:15 Dose: Not Given Dextrose (Dextrose 50% Inj) 0 ml IV STAT PRN; Protocol PRN Reason: Hypoglycemia Protocol Dextrose (Glutose 15) 0 gm PO ONCE PRN; Protocol PRN Reason: Hypoglycemia Protocol Docusate Sodium (Colace) 100 mg PO BID [facility] Last Admin: 09/30/18 08:45 Dose: Not Given Ergocalciferol (Drisdol 50,000 Intl Units Cap) 1 cap PO QWK [facility] Last Admin: 09/21/18 09:01 Dose: 1 cap Glucagon (Glucagen Diagnostic Kit) 0 mg IM STAT PRN; Protocol PRN Reason: Hypoglycemia Protocol Guaifenesin/Dextromethorphan (Mucinex-Dm 600-30 Mg) 1 tab PO BID [facility] Last Admin: 09/30/18 09:02 Dose: 1 tab Vancomycin HCl 1 gm/ Sodium (Chloride) 250 mls @ 166.667 mls/hr IVPB DAILY [facility]; Protocol Last Admin: 09/30/18 11:14 Dose: 166.667 mls/hr Meropenem 1 gm/ Sodium (Chloride) 100 mls @ 100 mls/hr IVPB Q8 [facility]; Protocol Last Admin: 09/30/18 09:03 Dose: 100 mls/hr Insulin Detemir (Levemir) 25 units SC HS [facility] Last Admin: 09/29/18 22:40 Dose: 25 u Insulin Human Regular (Humulin R) 0 units SC ACHS [facility]; Protocol Last Admin: 09/30/18 12:16 Dose: 3 units Insulin Human Regular (Humulin R) 8 units SC AC [facility] Last Admin: 09/30/18 12:16 Dose: 8 units Mirtazapine (Remeron) 15 mg PO HS [facility] Last Admin: 09/29/18 21:19 Dose: 15 mg Montelukast Sodium (Singulair) 10 mg PO DAILY [facility] Last Admin: 09/30/18 09:03 Dose: 10 mg Ondansetron HCl (Zofran Odt) 4 mg PO Q8H PRN PRN Reason: Nausea/Vomiting Last Admin: 09/25/18 08:56 Dose: 4 mg Pantoprazole Sodium (Protonix Ec Tab) 40 mg PO DAILY [facility] Last Admin: 09/30/18 09:02 Dose: 40 mg Pregabalin (Lyrica) 50 mg PO TID [facility] Last Admin: 09/30/18 12:17 Dose: 50 mg Pregabalin (Lyrica) 50 mg PO HS [facility] Last Admin: 09/29/18 22:40 Dose: 50 mg Promethazine HCl/Codeine (Phenergan/Codeine Oral Syrup) 5 ml PO Q6 PRN PRN Reason: Cough Last Admin: 09/30/18 11:16 Dose: 5 ml Promethazine HCl/Codeine (Phenergan/Codeine Oral Syrup) 10 ml PO Q6 PRN PRN Reason: Cough Last Admin: 09/29/18 21:18 Dose: 10 ml Silver Sulfadiazine (Silvadene 1% 50 Gm) 1 applic TOP DAILY [facility] Last Admin: 09/30/18 08:56 Dose: Not Given - Labs Labs: 09/29/18 05:00 09/29/18 05:00 PT 12.6 Seconds (9.8-13.1) 09/20/18 18:30 INR 1.1 09/20/18 18:30 APTT 35.9 Seconds (25.6-37.1) 09/20/18 18:30 - Constitutional Appears: Well, Non-toxic, No Acute Distress - Head Exam Head Exam: ATRAUMATIC, NORMOCEPHALIC - Extremities Exam Additional comments: LE focused exam: Vasc: R DP pulses very faintly palpable R PT pulse is palpable 1/4, L DP/PT 2/4. Cap refill almost 3 sec to all digits. Temp gradient warm to warmer on the R side and warm to cool on the left side from proximal to distal. Non pitting edema noted on the right foot up to the ankle - improved. Erythema extending from the R hallux to the R 1st MPJ - improved. Small superficial varicosities noted to the L foot and ankle Ortho: Mild pain to palpation of the R hallux. Muscle power intact 5/5 to all groups. Neuro: Gross and Protective sensation are grossly diminished. Derm: R hallux ulcer measuring approximately 1.2X1.2X0.3cm noted. Mild, approximately 1cc of purulence appreciated, positive probe to bone, No malodor, No tracking or undermining. Base is granular: after debridement of necrotic eschar bone is exposed with granular base and bleeding tissue present; improving - Neurological Exam Neurological Exam: Alert, Awake, Oriented x3 - Psychiatric Exam Psychiatric exam: Normal Affect, Normal Mood Assessment and Plan - Assessment and Plan (Free Text) Assessment: 78 year old femal patient with R hallux infected ulcer and cellulitis; cellulitis resolved Plan: Patient seen and evaluated. Discussed in detail with Dr. Marks Afebrile, ESR 92 (09/21) Wound Cx: E. Coli, Corneybacterium species R foot X-ray: Soft tissue swelling without acute articular or osseous anomalies. R foot MRI: mild inflammation at site of ulceration, despite motion artifact, no definite evidence of osteomyelitis is appreciated, mild thinning of skin RLE arterial duplex: Inflow disease with high common femoral artery flow, R common femoral artery and SFA have atherosclerotic disease with areas of narrowing and stenosis. Flow is identified in the popliteal, posterior tibial and DP arteries. Wound site cleansed with sterile saline and dressed with SSD and DSD ID consulted: recommendations appreciated - continue vanc and meropenem for 14 day course of each Vascular sx consulted: all recommendations appreciated Patient to ambulate in the surgical shoe all the times Patient is stable for discharge from podiatry standpoint with ID recommendations of medication, will f/u outpatient with Dr. Marks for further treatment of wound Dressing instructions: Silvadene and DSD with KAYCE, surgical shoe for ambulation at all times Podiatry will continue to follow up the patient while in house
[2018-09-30] MEDS: Insulin Detemir 100 Units/ml Inj SC SCH (21:53)
[2018-10-01] MEDS: Albuterol-Ipratrop 3 mg / 0.5 (3 ml) UD INH SCH ×4 (00:08→11:00)
[2018-10-01] MEDS: Meropenem 1 GM in Sodium Chloride 0.9% 100 ML IVPB SCH ×2 (00:10→08:39)
--- NOTE | 2018-10-01 06:44 | CP.PCM.PN ---
<Luís David - Last Filed: 10/01/18 08:55> Subjective - Subjective Subjective: no AD, cough improved, denies R foot pain Objective - Vital Signs/Intake and Output Vital Signs (last 24 hours): Temp Pulse Resp BP Pulse Ox 97.4 F L 94 H 20 148/83 99 10/01/18 08:34 10/01/18 08:43 10/01/18 08:34 10/01/18 08:43 10/01/18 08:34 - Medications Medications: Current Medications Acetaminophen (Tylenol 325mg Tab) 650 mg PO Q4 PRN PRN Reason: Fever >100.4 F Last Admin: 09/22/18 01:06 Dose: 650 mg Albuterol/Ipratropium (Duoneb 3 Mg/0.5 Mg (3 Ml) Ud) 3 ml INH RQ4 [facility] Last Admin: 10/01/18 07:34 Dose: 3 ml Amlodipine Besylate (Norvasc) 10 mg PO DAILY [facility] Last Admin: 10/01/18 08:43 Dose: 10 mg Atorvastatin Calcium (Lipitor) 40 mg PO DAILY [facility] Last Admin: 10/01/18 08:39 Dose: 40 mg Benzonatate (Tessalon Perles) 100 mg PO Q8 PRN PRN Reason: Cough Last Admin: 09/27/18 09:04 Dose: 100 mg Budesonide (Pulmicort Respules) 0.5 mg IH RBID [facility] Last Admin: 10/01/18 07:34 Dose: 0.5 mg Cyclobenzaprine HCl (Flexeril) 5 mg PO TID [facility] Last Admin: 09/23/18 16:15 Dose: Not Given Dextrose (Dextrose 50% Inj) 0 ml IV STAT PRN; Protocol PRN Reason: Hypoglycemia Protocol Dextrose (Glutose 15) 0 gm PO ONCE PRN; Protocol PRN Reason: Hypoglycemia Protocol Docusate Sodium (Colace) 100 mg PO BID [facility] Last Admin: 10/01/18 08:29 Dose: Not Given Ergocalciferol (Drisdol 50,000 Intl Units Cap) 1 cap PO QWK [facility] Last Admin: 09/21/18 09:01 Dose: 1 cap Glucagon (Glucagen Diagnostic Kit) 0 mg IM STAT PRN; Protocol PRN Reason: Hypoglycemia Protocol Guaifenesin/Dextromethorphan (Mucinex-Dm 600-30 Mg) 1 tab PO BID [facility] Last Admin: 10/01/18 08:40 Dose: 1 tab Vancomycin HCl 1 gm/ Sodium (Chloride) 250 mls @ 166.667 mls/hr IVPB DAILY [facility]; Protocol Last Admin: 09/30/18 11:14 Dose: 166.667 mls/hr Meropenem 1 gm/ Sodium (Chloride) 100 mls @ 100 mls/hr IVPB Q8 [facility]; Protocol Last Admin: 10/01/18 08:39 Dose: 100 mls/hr Insulin Detemir (Levemir) 25 units SC HS [facility] Last Admin: 09/30/18 21:53 Dose: 25 u Insulin Human Regular (Humulin R) 0 units SC ACHS [facility]; Protocol Last Admin: 10/01/18 08:37 Dose: 2 units Insulin Human Regular (Humulin R) 8 units SC AC [facility] Last Admin: 10/01/18 08:37 Dose: 8 units Mirtazapine (Remeron) 15 mg PO [facility] Last Admin: 09/30/18 22:03 Dose: 15 mg Montelukast Sodium (Singulair) 10 mg PO DAILY [facility] Last Admin: 10/01/18 08:39 Dose: 10 mg Ondansetron HCl (Zofran Odt) 4 mg PO Q8H PRN PRN Reason: Nausea/Vomiting Last Admin: 09/25/18 08:56 Dose: 4 mg Pantoprazole Sodium (Protonix Ec Tab) 40 mg PO DAILY [facility] Last Admin: 10/01/18 08:39 Dose: 40 mg Pregabalin (Lyrica) 50 mg PO TID [facility] Last Admin: 10/01/18 08:39 Dose: 50 mg Pregabalin (Lyrica) 50 mg PO [facility] Last Admin: 09/30/18 22:03 Dose: 50 mg Promethazine HCl/Codeine (Phenergan/Codeine Oral Syrup) 5 ml PO Q6 PRN PRN Reason: Cough Last Admin: 09/30/18 16:30 Dose: 5 ml Promethazine HCl/Codeine (Phenergan/Codeine Oral Syrup) 10 ml PO Q6 PRN PRN Reason: Cough Last Admin: 09/29/18 21:18 Dose: 10 ml Silver Sulfadiazine (Silvadene 1% 50 Gm) 1 applic TOP DAILY [facility] Last Admin: 10/01/18 08:35 Dose: Not Given - Labs Labs: 09/29/18 05:00 09/29/18 05:00 PT 12.6 Seconds (9.8-13.1) 09/20/18 18:30 INR 1.1 09/20/18 18:30 APTT 35.9 Seconds (25.6-37.1) 09/20/18 18:30 Assessment and Plan (1) Cellulitis and abscess of toe of right foot Status: Acute (2) Foot ulcer, right Status: Acute (3) Arterial occlusion, lower extremity Status: Acute (4) COPD exacerbation Status: Acute (5) Diabetic neuropathy Status: Acute (6) Diabetes mellitus with hyperglycemia Status: Acute - Assessment and Plan (Free Text) Plan: BS more stable,continue Humulin AC TID, Madiha Jenkins, Mariajose <Jose Junior - Last Filed: 10/01/18 09:39> Subjective - Date & Time of Evaluation Date of Evaluation: 10/01/18 Time of Evaluation: 06:43 - Subjective Subjective: Podiatry progress note for Dr. Marks 78F seen and evaluated. Resting comfortably in bed. Denies foot pain and states her cough is improving. Denies N/V/F/C/SOB/CP and has no other acute complaints. Believes she is being transferred today. Objective - Vital Signs/Intake and Output Vital Signs (last 24 hours): Temp Pulse Resp BP Pulse Ox 97.6 F 103 H 20 144/75 95 10/01/18 00:01 10/01/18 00:01 10/01/18 00:01 10/01/18 00:01 10/01/18 00:01 - Medications Medications: Current Medications Acetaminophen (Tylenol 325mg Tab) 650 mg PO Q4 PRN PRN Reason: Fever >100.4 F Last Admin: 09/22/18 01:06 Dose: 650 mg Albuterol/Ipratropium (Duoneb 3 Mg/0.5 Mg (3 Ml) Ud) 3 ml INH RQ4 [facility] Last Admin: 10/01/18 04:47 Dose: Not Given Amlodipine Besylate (Norvasc) 10 mg PO DAILY [facility] Last Admin: 09/30/18 09:02 Dose: 10 mg Atorvastatin Calcium (Lipitor) 40 mg PO DAILY [facility] Last Admin: 09/30/18 09:02 Dose: 40 mg Benzonatate (Tessalon Perles) 100 mg PO Q8 PRN PRN Reason: Cough Last Admin: 09/27/18 09:04 Dose: 100 mg Budesonide (Pulmicort Respules) 0.5 mg IH RBID [facility] Last Admin: 09/30/18 20:27 Dose: 0.5 mg Cyclobenzaprine HCl (Flexeril) 5 mg PO TID [facility] Last Admin: 09/23/18 16:15 Dose: Not Given Dextrose (Dextrose 50% Inj) 0 ml IV STAT PRN; Protocol PRN Reason: Hypoglycemia Protocol Dextrose (Glutose 15) 0 gm PO ONCE PRN; Protocol PRN Reason: Hypoglycemia Protocol Docusate Sodium (Colace) 100 mg PO BID [facility] Last Admin: 09/30/18 18:29 Dose: Not Given Ergocalciferol (Drisdol 50,000 Intl Units Cap) 1 cap PO QWK [facility] Last Admin: 09/21/18 09:01 Dose: 1 cap Glucagon (Glucagen Diagnostic Kit) 0 mg IM STAT PRN; Protocol PRN Reason: Hypoglycemia Protocol Guaifenesin/Dextromethorphan (Mucinex-Dm 600-30 Mg) 1 tab PO BID [facility] Last Admin: 09/30/18 18:34 Dose: 1 tab Vancomycin HCl 1 gm/ Sodium (Chloride) 250 mls @ 166.667 mls/hr IVPB DAILY [facility]; Protocol Last Admin: 09/30/18 11:14 Dose: 166.667 mls/hr Meropenem 1 gm/ Sodium (Chloride) 100 mls @ 100 mls/hr IVPB Q8 [facility]; Protocol Last Admin: 10/01/18 00:10 Dose: 100 mls/hr Insulin Detemir (Levemir) 25 units SC HS [facility] Last Admin: 09/30/18 21:53 Dose: 25 u Insulin Human Regular (Humulin R) 0 units SC ACHS [facility]; Protocol Last Admin: 09/30/18 21:46 Dose: Not Given Insulin Human Regular (Humulin R) 8 units SC AC [facility] Last Admin: 09/30/18 16:45 Dose: 8 units Mirtazapine (Remeron) 15 mg PO HS [facility] Last Admin: 09/30/18 22:03 Dose: 15 mg Montelukast Sodium (Singulair) 10 mg PO DAILY [facility] Last Admin: 09/30/18 09:03 Dose: 10 mg Ondansetron HCl (Zofran Odt) 4 mg PO Q8H PRN PRN Reason: Nausea/Vomiting Last Admin: 09/25/18 08:56 Dose: 4 mg Pantoprazole Sodium (Protonix Ec Tab) 40 mg PO DAILY [facility] Last Admin: 09/30/18 09:02 Dose: 40 mg Pregabalin (Lyrica) 50 mg PO TID [facility] Last Admin: 09/30/18 16:45 Dose: 50 mg Pregabalin (Lyrica) 50 mg PO HS [facility] Last Admin: 09/30/18 22:03 Dose: 50 mg Promethazine HCl/Codeine (Phenergan/Codeine Oral Syrup) 5 ml PO Q6 PRN PRN Reason: Cough Last Admin: 09/30/18 16:30 Dose: 5 ml Promethazine HCl/Codeine (Phenergan/Codeine Oral Syrup) 10 ml PO Q6 PRN PRN Reason: Cough Last Admin: 09/29/18 21:18 Dose: 10 ml Silver Sulfadiazine (Silvadene 1% 50 Gm) 1 applic TOP DAILY [facility] Last Admin: 09/30/18 08:56 Dose: Not Given - Labs Labs: 09/29/18 05:00 09/29/18 05:00 PT 12.6 Seconds (9.8-13.1) 09/20/18 18:30 INR 1.1 09/20/18 18:30 APTT 35.9 Seconds (25.6-37.1) 09/20/18 18:30 - Constitutional Appears: Well, Non-toxic, No Acute Distress - Head Exam Head Exam: ATRAUMATIC, NORMOCEPHALIC - Extremities Exam Additional comments: Vasc: R DP pulses very faintly palpable R PT pulse is palpable 1/4, L DP/PT 2/4. Cap refill almost 3 sec to all digits. Temp gradient warm to warmer on the R side and warm to cool on the left side from proximal to distal. Non pitting jacqui ma noted on the right foot up to the ankle - improved. Erythema extending from the R hallux to the R 1st MPJ - improved. Small superficial varicosities noted to the L foot and ankle Ortho: Mild pain to palpation of the R hallux. Muscle power intact 5/5 to all groups. Neuro: Gross and Protective sensation are grossly diminished. Derm: R hallux ulcer measuring approximately 1.2X1.2X0.3cm noted. Mild, approximately 1cc of purulence appreciated, positive probe to bone, No malodor, No tracking or undermining. Base is granular: after debridement of necrotic eschar bone is exposed with granular base and bleeding tissue present; improving - Neurological Exam Neurological Exam: Alert, Awake, Oriented x3 - Psychiatric Exam Psychiatric exam: Normal Affect, Normal Mood Assessment and Plan - Assessment and Plan (Free Text) Assessment: 78F with R hallux infected ulcer and cellulitis; cellulitis resolved Plan: Patient seen and evaluated. Discussed in detail with Dr. Marks Afebrile, ESR 92 (09/21) Wound Cx: E. Coli, Corneybacterium species, olga albicans R foot X-ray: Soft tissue swelling without acute articular or osseous anomalies. R foot MRI: mild inflammation at site of ulceration, despite motion artifact, no definite evidence of osteomyelitis is appreciated, mild thinning of skin RLE arterial duplex: Inflow disease with high common femoral artery flow, R common femoral artery and SFA have atherosclerotic disease with areas of narrowing and stenosis. Flow is identified in the popliteal, posterior tibial and DP arteries. Wound site cleansed with sterile saline and dressed with SSD and DSD ID consulted: recommendations appreciated - continue vanc and meropenem for 14 day course of each Vascular sx consulted: all recommendations appreciated Patient to ambulate in the surgical shoe all the times Patient is stable for discharge from podiatry standpoint with ID recommendations of medication, will f/u outpatient with Dr. Marks for further treatment of wound Dressing instructions: Silvadene and DSD with KAYCE, surgical shoe for ambulation at all times Podiatry will continue to follow up the patient while in house
[2018-10-01] MEDS: Budesonide 0.5 mg/2 ml Inhal Susp UD IH SCH (07:34)
[2018-10-01 08:35] VITALS: BP 148/83; TEMP 97.4; O2SAT 99
[2018-10-01] MEDS: Silver Sulfadiazine 1% CREAM (50 gm) TOP SCH (08:35)
[2018-10-01] MEDS: Insulin Regular 100 units/ml SC SCH ×4 (08:37→12:40)
[2018-10-01] MEDS: Pantoprazole 40 mg EC Tab PO SCH (08:39)
[2018-10-01] MEDS: guaiFENesin-DM 600-30 mg ER Tab PO SCH (08:40)
[2018-10-01] MEDS: Promethazine/Cod 6.25mg-10mg/5ml Syr UD PO PRN (11:26)
[2018-10-01] MEDS ORDERED: Promethazine/Cod 6.25mg-10mg/5ml Syr UD PO PRN ×2 (11:30)
[2018-10-01 11:41] VITALS: PULSE 101
--- NOTE | 2018-10-01 15:39 | CP.PCM.DIS ---
Provider - Provider Date of Admission: 09/20/18 17:51 Attending physician: Luís David MD Consults: 09/20/18 17:45 Infectious Disease Consult Routine Comment: Consulting Provider: Jihan Barclay Consulting Physician: Jihan Barclay Reason for Consult: R Hallux infected ulcer and R LE PVD Vascular Surgery Routine Comment: Consulting Provider: Elijah Zavala Physician Instructions: Reason For Exam: R LE PVD and infected hallux ulceration 09/20/18 17:50 Podiatry Consult Stat Comment: Consulting Provider: Edy Marks Consulting Physician: Edy Marks Reason for Consult: Diabetic ulcer/cellulitis Diagnosis - Discharge Diagnosis (1) Cellulitis and abscess of toe of right foot Status: Acute (2) Foot ulcer, right Status: Acute (3) Arterial occlusion, lower extremity Status: Acute Priority: High (4) COPD exacerbation Status: Acute Priority: High (5) Diabetic neuropathy Status: Acute (6) Diabetes mellitus with hyperglycemia Status: Acute Hospital Course - Lab Results Lab Results: Micro Results 09/26/18 12:30 Toe Gram Stain - Final 09/26/18 12:30 Toe Wound Culture - Final Corynebacterium Species Krystin Albicans 09/20/18 18:05 Blood-Venous Blood Culture - Final NO GROWTH AFTER 5 DAYS 09/20/18 18:05 Blood-Venous Gram Stain - Final TEST NOT PERFORMED 09/20/18 18:30 Blood-Venous Blood Culture - Final NO GROWTH AFTER 5 DAYS 09/20/18 18:30 Blood-Venous Gram Stain - Final TEST NOT PERFORMED 09/20/18 18:30 Foot - Right Gram Stain - Final 09/20/18 18:30 Foot - Right Wound Culture - Final Escherichia Coli Corynebacterium Species Most Recent Lab Values WBC 13.0 K/uL (4.8-10.8) H 09/29/18 05:00 RBC 3.02 Mil/uL (3.80-5.20) L 09/29/18 05:00 Hgb 8.4 g/dL (12.0-16.0) L 09/29/18 05:00 Hct 26.0 % (34.0-47.0) L 09/29/18 05:00 MCV 86.0 fl (81.0-99.0) 09/29/18 05:00 MCH 27.7 pg (27.0-31.0) 09/29/18 05:00 MCHC 32.2 g/dL (33.0-37.0) L 09/29/18 05:00 RDW 14.3 % (11.5-14.5) 09/29/18 05:00 Plt Count 354 K/uL (130-400) 09/29/18 05:00 MPV 9.2 fl (7.2-11.7) 09/27/18 05:20 Neut % (Auto) 86.0 % (50.0-75.0) H 09/27/18 05:20 Lymph % (Auto) 9.8 % (20.0-40.0) L 09/27/18 05:20 Crisp % (Auto) 4.0 % (0.0-10.0) 09/27/18 05:20 Eos % (Auto) 0.0 % (0.0-4.0) 09/27/18 05:20 Baso % (Auto) 0.2 % (0.0-2.0) 09/27/18 05:20 Neut # (Auto) 13.2 K/uL (1.8-7.0) H 09/27/18 05:20 Lymph # (Auto) 1.5 K/uL (1.0-4.3) 09/27/18 05:20 Crisp # (Auto) 0.6 K/uL (0.0-0.8) 09/27/18 05:20 Eos # (Auto) 0.0 K/uL (0.0-0.7) 09/27/18 05:20 Baso # (Auto) 0.0 K/uL (0.0-0.2) 09/27/18 05:20 Neutrophils % (Manual) 86 % (42-75) H 09/27/18 05:20 Band Neutrophils % 1 % (0-2) 09/21/18 05:20 Lymphocytes % (Manual) 11 % (20-50) L 09/27/18 05:20 Reactive Lymphs % 2 % (0-0) H 09/21/18 05:20 Monocytes % (Manual) 3 % (0-10) 09/27/18 05:20 Metamyelocytes % 1 % (0-0) H 09/21/18 05:20 Toxic Granulation Present 09/21/18 05:20 Platelet Estimate Normal (NORMAL) 09/27/18 05:20 Plt Clumps, EDTA Present 09/21/18 05:20 Large Platelets Present 09/27/18 05:20 Hypochromasia (manual) Moderate 09/27/18 05:20 Anisocytosis (manual) Slight 09/21/18 05:20 Ovalocytes Slight 09/27/18 05:20 Schistocytes Slight 09/27/18 05:20 ESR 92 mm/hr (0-30) H 09/21/18 16:40 PT 12.6 Seconds (9.8-13.1) 09/20/18 18:30 INR 1.1 09/20/18 18:30 APTT 35.9 Seconds (25.6-37.1) 09/20/18 18:30 Sodium 139 mmol/l (132-148) 09/29/18 05:00 Potassium 4.5 MMOL/L (3.6-5.0) 09/29/18 05:00 Chloride 102 mmol/L (98-107) 09/29/18 05:00 Carbon Dioxide 27 mmol/L (22-30) 09/29/18 05:00 Anion Gap 15 (10-20) 09/29/18 05:00 BUN 37 mg/dl (7-17) H 09/29/18 05:00 Creatinine 1.1 mg/dl (0.7-1.2) 09/29/18 05:00 Est GFR ( Amer) 58 09/29/18 05:00 Est GFR (Non-Af Amer) 48 09/29/18 05:00 POC Glucose (mg/dL) 253 mg/dL (65-110) H 10/01/18 10:58 Random Glucose 309 mg/dL (65-105) H 09/29/18 05:00 Calcium 9.9 mg/dL (8.4-10.2) 09/29/18 05:00 Total Bilirubin 0.2 mg/dl (0.2-1.3) 09/29/18 05:00 AST 49 U/L (14-36) H D 09/29/18 05:00 ALT 49 U/L (9-52) 09/29/18 05:00 Alkaline Phosphatase 90 U/L (38-126) 09/29/18 05:00 C-Reactive Protein 18.30 mg/L (0.0-9.9) H 09/20/18 18:30 Total Protein 7.4 G/DL (6.3-8.2) 09/29/18 05:00 Albumin 3.9 g/dL (3.5-5.0) 09/29/18 05:00 Globulin 3.5 gm/dL (2.2-3.9) 09/29/18 05:00 Albumin/Globulin Ratio 1.1 (1.0-2.1) 09/29/18 05:00 Urine Color Yellow (YELLOW) 09/20/18 22:40 Urine Clarity Slighty-cloudy (Clear) 09/20/18 22:40 Urine pH 6.0 (5.0-8.0) 09/20/18 22:40 Ur Specific [place] 1.011 (1.003-1.030) 09/20/18 22:40 Urine Protein Negative mg/dL (NEGATIVE) 09/20/18 22:40 Urine Glucose (UA) Neg mg/dL (NEGATIVE) 09/20/18 22:40 Urine Ketones Negative mg/dL (NEGATIVE) 09/20/18 22:40 Urine Blood Negative (NEGATIVE) 09/20/18 22:40 Urine Nitrate Negative (NEGATIVE) 09/20/18 22:40 Urine Bilirubin Negative (NEGATIVE) 09/20/18 22:40 Urine Urobilinogen 0.2-1.0 mg/dL (0.2-1.0) 09/20/18 22:40 Ur Leukocyte Esterase Neg Nidhi/uL (Negative) 09/20/18 22:40 Urine RBC (Auto) < 1 /hpf (0-3) 09/20/18 22:40 Urine Microscopic WBC 2 /hpf (0-5) 09/20/18 22:40 Ur Squamous Epith Cells 1 /hpf (0-5) 09/20/18 22:40 Vancomycin Trough 12.4 ug/mL (5.0-10.0) H 09/28/18 08:21 Random Vancomycin 8.9 ug/mL 09/21/18 07:40 RPR Nonreactive (NONREACTIVE) 09/23/18 12:43 Hepatitis A IgM Ab Negative (NEGATIVE) 09/23/18 12:43 Hep Bs Antigen Negative (NEGATIVE) 09/23/18 12:43 Hep Bs Antibody Negative (NEGATIVE) 09/23/18 12:43 Hep B Core IgM Ab Negative (NEGATIVE) 09/23/18 12:43 Hepatitis C Antibody Negative (NEGATIVE) 09/23/18 12:43 HIV 1&2 Antibody Screen Negative (NEGATIVE) 09/23/18 12:43 Blood Type A POSITIVE 09/20/18 18:30 Antibody Screen Negative 09/20/18 18:30 BBK History Checked Patient has bt 09/20/18 18:30 Discharge Exam - Head Exam Head Exam: ATRAUMATIC, NORMOCEPHALIC Discharge Plan - Discharge Medications Prescriptions: Meropenem IV 1 gm in NS [Merrem IV 1 gm Premix] 1 gm IVPB Q8 #105 bag Vancomycin 1 GM [Vancomycin 1GM in Normal Saline Addvantage] 1 gm IVPB DAILY #35 bag - Follow Up Plan Condition: STABLE Disposition: REHAB FACILITY/REHAB UNIT Instructions: Diabetic Foot Ulcer (DC), Cellulitis (Skin Infection), Adult (DC) Referrals: Jihan Barclay MD [Staff Provider] - Elijah Zavala MD [Staff Provider] - Edy Marks DPM [Doctor Podiatric Medicine] - Luís David MD [Family Provider] -
== END 2018-10-01 13:48 | DRG 982 ==
LOC: H.ER 15:47 → H.ERHOLD 17:51 → H.MEDSURG1 21:52
PROVIDERS: ADMIT Internal Medicine Pulmonary Disease; ATTEND Internal Medicine Pulmonary Disease
PROC: 0QBQ0ZZ Excision of Right Toe Phalanx, Open Approach (ICD-10-PCS; principal; 2018-09-26)
PROC: 02HV33Z Insertion of Infusion Device into Superior Vena Cava, Percutaneous Approach (ICD-10-PCS; 2018-09-28)
PROC: B518ZZA Fluoroscopy of Superior Vena Cava, Guidance (ICD-10-PCS; 2018-09-28)
PROC: B548ZZA Ultrasonography of Superior Vena Cava, Guidance (ICD-10-PCS; 2018-09-28)
DX: E11.51 Type 2 diabetes mellitus with diabetic peripheral angiopathy without gangrene (principal); J44.1 Chronic obstructive pulmonary disease with (acute) exacerbation; L02.611 Cutaneous abscess of right foot; M86.8X8 Other osteomyelitis, other site; I13.0 Hypertensive heart and chronic kidney disease with heart failure and stage 1 through stage 4 chronic kidney disease, or unspecified chronic kidney disease; E11.621 Type 2 diabetes mellitus with foot ulcer; E11.40 Type 2 diabetes mellitus with diabetic neuropathy, unspecified; L03.031 Cellulitis of right toe; I12.9 Hypertensive chronic kidney disease with stage 1 through stage 4 chronic kidney disease, or unspecified chronic kidney disease; E11.22 Type 2 diabetes mellitus with diabetic chronic kidney disease; N18.3 Chronic kidney disease, stage 3 (moderate); I70.235 Atherosclerosis of native arteries of right leg with ulceration of other part of foot; E11.65 Type 2 diabetes mellitus with hyperglycemia; D63.8 Anemia in other chronic diseases classified elsewhere; I77.9 Disorder of arteries and arterioles, unspecified; B96.20 Unspecified Escherichia coli [E. coli] as the cause of diseases classified elsewhere; E11.628 Type 2 diabetes mellitus with other skin complications; E78.00 Pure hypercholesterolemia, unspecified; E78.5 Hyperlipidemia, unspecified; I50.9 Heart failure, unspecified; I70.201 Unspecified atherosclerosis of native arteries of extremities, right leg; L97.519 Non-pressure chronic ulcer of other part of right foot with unspecified severity; M81.0 Age-related osteoporosis without current pathological fracture; Z79.02 Long term (current) use of antithrombotics/antiplatelets; Z79.4 Long term (current) use of insulin; Z87.891 Personal history of nicotine dependence; E05.00 Thyrotoxicosis with diffuse goiter without thyrotoxic crisis or storm; F41.8 Other specified anxiety disorders; Z87.01 Personal history of pneumonia (recurrent); J30.9 Allergic rhinitis, unspecified; M19.90 Unspecified osteoarthritis, unspecified site; Z79.899 Other long term (current) drug therapy

== ENCOUNTER 2018-10-23 20:14 | Inpatient (IN) | payer MEDICAID, MEDICARE ==
[2018-10-23 20:14] VITALS: BMI 28.3
[2018-10-23] MEDS ORDERED: Albuterol-Ipratrop 3 mg / 0.5 (3 ml) UD IH STA (20:40)
--- NOTE | 2018-10-23 20:44 | ED PDOC ---
HPI: SOB/CHF/COPD Time Seen by Provider: 10/23/18 20:28 Chief Complaint (Nursing): Cough, Cold, Congestion Chief Complaint (Provider): shortness of breath History Per: Patient, Family (daughter) History/Exam Limitations: no limitations Onset/Duration Of Symptoms: Days (1 month) Current Symptoms Are (Timing): Still Present Additional Complaint(s): 78 y/o female history of COPD, diabetes, hypertension sent from [facility] (s/p infected heel ulcer) for evaluation of ongoing cough x 1 month. Patient has been using COPD medications including inhaler, nebulizer and cough medication with little improvement. PAtient was evaluated by her primary doctor, Dr. David, today and advised to come to ED for further evaluation. Denies fever, chest pain, palpitations, abdominal pain, leg pain/swelling. Past Medical History Reviewed: Historical Data, Nursing Documentation, Vital Signs Vital Signs: Last Vital Signs Temp 98.1 F 10/23/18 20:20 Pulse 103 H 10/23/18 20:20 Resp 16 10/23/18 20:20 BP 155/85 H 10/23/18 20:20 Pulse Ox 99 10/23/18 20:20 - Medical History PMH: Anemia, Anxiety, Arthritis, Asthma, CHF, Depression, Diabetes, Graves' Disease, HTN, Hypercholesterolemia, Osteoporosis, Pneumonia (Daughter denies) Denies: COPD (Daughter denies), HIV, Hypothyroidism, Chronic Kidney Disease - Family History Family History: States: Unknown Family Hx - Immunization History Hx Influenza Vaccination: Yes Hx Pneumococcal Vaccination: Yes - Home Medications Home Medications: Ambulatory Orders Medication Instructions Recorded Montelukast [Singulair] 10 mg PO DAILY 10/13/17 Atorvastatin [Lipitor] 40 mg PO DAILY 09/08/18 Cholecalciferol [Vitamin D 1000 IU] 50,000 iu PO QWK 09/08/18 Cyclobenzaprine [Flexeril] 5 mg PO TID 09/08/18 Omeprazole 40 mg PO DAILY 09/08/18 amLODIPine [Norvasc] 10 mg PO DAILY 09/08/18 Benzonatate [Tessalon Perles] 100 mg PO Q8 PRN sgl 09/28/18 Docusate [Colace] 100 mg PO BID cap 09/28/18 Enoxaparin [Lovenox] 70 mg SC HS syr 09/28/18 Ondansetron ODT [Zofran ODT] 4 mg PO Q8H PRN odt 09/28/18 Silver Sulfadiazine 1% 50 gm 1 applic TOP DAILY jar 09/28/18 [Silvadene 1% 50 gm] Vancomycin 1 GM [Vancomycin 1GM in 1 gm IVPB DAILY #35 bag 09/28/18 Normal Saline Addvantage] oxyCODONE/Acetaminophen [Percocet 1 tab PO Q6 PRN tab 09/28/18 5/325 mg Tab] Albuterol/Ipratropium [Duoneb 3 1 inh INH Q4 PRN 10/23/18 mg/0.5 mg (3 ml) UD] Ezetimibe [Zetia] 10 mg PO DAILY 10/23/18 Famotidine [Pepcid] 20 mg PO DAILY 10/23/18 Insulin Detemir [Levemir] 30 units SC HS 10/23/18 Meropenem 1g/NS 100mL IVPB 1 gm IVP Q8 10/23/18 Temazepam [Restoril] 30 mg PO DAILY 10/23/18 - Allergies Allergies/Adverse Reactions: Allergies Allergy/AdvReac Type Severity Reaction Status Date / Time aspirin AdvReac RASH Verified 10/23/18 20:19 Review of Systems ROS Statement: Except As Marked, All Systems Reviewed And Found Negative Respiratory: Positive for: Cough, Shortness of Breath Physical Exam - Reviewed Nursing Documentation Reviewed: Yes Vital Signs Reviewed: Yes - Physical Exam Appears: Positive for: Well, Non-toxic, No Acute Distress Head Exam: Positive for: ATRAUMATIC, NORMAL INSPECTION, NORMOCEPHALIC Skin: Positive for: Normal Color Eye Exam: Positive for: Normal appearance ENT: Positive for: Normal ENT Inspection Cardiovascular/Chest: Positive for: Regular Rate, Rhythm Respiratory: Positive for: Wheezing (diffuse expiratory wheezing) Gastrointestinal/Abdominal: Positive for: Normal Exam Back: Positive for: Normal Inspection Extremity: Positive for: Normal ROM Neurologic/Psych: Positive for: Alert, Oriented (x3) - Laboratory Results Result Diagrams: 10/23/18 21:07 10/23/18 21:27 - ECG ECG: Positive for: Viewed By Me (reviewed by ED attending) ECG Rhythm: Positive for: Sinus Tachycardia O2 Sat by Pulse Oximetry: 99 - Radiology X-Ray: Viewed By Me X-Ray Interpretation: No Acute Disease - Progress ED Course And Treament: -cbc -cmp -bnp -troponin -blood cx -vbg w/ lactate -cxr -ekg -duoneb -IV solumedrol Case discussed with Dr. David for admission for COPD exacerbation Disposition - Clinical Impression Clinical Impression: COPD exacerbation, Hyperglycemia due to type 2 diabetes mellitus - Patient ED Disposition Is Patient to be Admitted: Yes - Disposition Disposition Time: 23:00 Condition: FAIR
[2018-10-23] MEDS ORDERED: Albuterol-Ipratrop 3 mg / 0.5 (3 ml) UD ONE (20:55)
[2018-10-23 21:14] LABS: BASO # 0.1 K/uL (0.0-0.2); BASO % 0.7 % (0.0-2.0); EOS # 1.1 K/uL (0.0-0.7); EOS % 10.3 % (0.0-4.0); HEMOGLOBIN 10.5 g/dL (12.0-16.0); LYMPH # 2.1 K/uL (1.0-4.3); LYMPH % 19.1 % (20.0-40.0); MEAN CELL VOLUME 84.8 fl (81.0-99.0); MEAN CORPUSCULAR HEMOGLOBIN 27.5 pg (27.0-31.0); MEAN CORPUSCULAR HGB CONC 32.5 g/dL (33.0-37.0); MEAN PLATELET VOLUME 9.2 fl (7.2-11.7); MONO # 1.2 K/uL (0.0-0.8); MONO % 11.2 % (0.0-10.0); NEUT # 6.4 K/uL (1.8-7.0); NEUT % 58.7 % (50.0-75.0); NRBC % 0.1 % (0.0-0.0); RBC 3.82 Mil/uL (3.80-5.20); RED CELL DISTRIBUTION WIDTH 14.2 % (11.5-14.5); WHITE BLOOD COUNT 10.9 K/uL (4.8-10.8)
[2018-10-23 21:15] LABS: VENOUS BLOOD GAS BASE EXCESS 4.8 mmol/L (0.0-2.0); VENOUS BLOOD GAS PCO2 52 mmHg (40-60); VENOUS BLOOD GAS PO2 28 mm/Hg (30-55); VENOUS BLOOD PH 7.38 (7.32-7.43)
[2018-10-23] MEDS ORDERED: Sodium Chloride 0.9% 1,000 ML IV STA (21:17)
[2018-10-23 21:51] LABS: B-TYPE NATRIURETIC PEPTIDE 54.2 pg/ml (0-900)
[2018-10-23 22:24] LABS: ALB/GLOB RATIO 1.1 (1.0-2.1); ALBUMIN 4.2 g/dL (3.5-5.0); ALT/SGPT 34 U/L (9-52); AST/SGOT 29 U/L (14-36); BLOOD UREA NITROGEN 30 mg/dl (7-17); CALCIUM 10.1 mg/dL (8.4-10.2); GFR NON-AFRICAN AMERICAN 36
[2018-10-24] MEDS ORDERED: Oxycodone/Acetaminophen 5/325 mg Tab PO PRN (05:26)
[2018-10-24] MEDS ORDERED: Ergocalciferol 50,000 Intl Units Cap PO SCH (05:30)
[2018-10-24] MEDS: Insulin Regular 100 units/ml SC SCH ×4 (06:31→22:29)
[2018-10-24] MEDS: Pantoprazole 40 mg EC Tab PO SCH (08:45)
[2018-10-24] MEDS: Meropenem 1 GM in Sodium Chloride 0.9% 100 ML IVPB SCH ×2 (08:46→17:07)
[2018-10-24] MEDS ORDERED: Silver Sulfadiazine 1% CREAM (50 gm) TOP SCH (09:00)
[2018-10-24] MEDS ORDERED: [UNRECOGNIZED DRUG - OTHER] IVP SCH (09:00)
[2018-10-24] MEDS ORDERED: MEROPENEM IVP SCH (09:00)
[2018-10-24] MEDS ORDERED: Patient's Own Med (Vancomycin 1 Gm [Vancomycin 1gm In Normal Saline Addvantage] 1 GM) IVPB SCH (09:00)
[2018-10-24] MEDS: Silver Sulfadiazine 1% Cream (20 gm) TOP SCH (09:07)
[2018-10-24] MEDS ORDERED: Insulin Detemir 100 Units/ml Inj SC ONE (09:43)
[2018-10-24] MEDS ORDERED: methylPREDNISolone 80 MG in Sodium Chloride 0.9% 50 ML IVPB SCH (09:45)
--- NOTE | 2018-10-24 09:53 | RAD ---
Date of service: 10/23/2018 HISTORY: cough COMPARISON: 09/25/2018 FINDINGS: LUNGS: Current lung volumes less than before. This accentuating the central pulmonary vascular markings No consolidation appreciated. PLEURA: No significant pleural effusion identified, no pneumothorax apparent. CARDIOVASCULAR: No aortic atherosclerotic calcification present. Cardiomegaly mild pulmonary venous congestion suspect. Interval right PICC line insertion tip cavoatrial junction. OSSEOUS STRUCTURES: Thoracic spondylosis. VISUALIZED UPPER ABDOMEN: Normal. OTHER FINDINGS: None. IMPRESSION: Cardiomegaly and interval increased pulmonary venous congestion. Interval right PICC line insertion-tip cavoatrial junction. No pneumothorax seen
[2018-10-24] MEDS: Promethazine/Cod 6.25mg-10mg/5ml Syr UD PO SCH ×4 (10:28→21:43)
--- NOTE | 2018-10-24 11:11 | CARD ---
APPROVED REPORT Date of service: 10/23/2018 EKG Measurement Heart [id number] <Conclusion> Sinus tachycardia Otherwise normal ECG
--- NOTE | 2018-10-24 11:45 | CP.PCM.CON ---
History of Present Illness - History of Present Illness History of Present Illness: Infectious Disease Consultation Note- asked to see this alcides at the request of for right great toe choronic ulcer. HPI- Alcides known to me from her previous admission in 08/2018. Alcides is a pleasant 78 year old female with PMH of copd, CHF, HTN, DM II, PVD s/p with recent RLE angiograms with right femoral atherectomy 03/2018 and s/p atherectomy/PROGRAM ELIGIBILITY SPECIALIST with DCB of R SFA on 09/12/[address] Zavala who was treate for the infected right great toe ulcer last visit and she was transferred to [facility] to complete her antibiotic therpay and PT , however, she developed sob and was seen by her PMD and was advised to be admitted for copd exacerbation. who was admitted with c/o right toe foot pain for past few days. as per patient and her daughter who is at her bedside she has been receiving her IV abx at the [facility] and the ulcer is healing and she has been seen by podiatry as well. Patient denies any fever or chills, denies any BYRD, denies any cough but c/o sob , denies any chest pain, denies any abd. pain, denies any nausea , denies any diarrhea, denies any dysurea has chronic pain in the legs from her PVD. PMD: Dr David PMH: Anemia; Anxiety and depression; Arthritis, Asthma and COPD; CHF; Diabetes with neuropathy; Graves' Disease, HTN, HLD Osteoporosis, Pneumonia; PVD with Right lower extremity arterial occlusion PSH: PVOD s/p atherectomy/PROGRAM ELIGIBILITY SPECIALIST of right SFA and atherectomy/PROGRAM ELIGIBILITY SPECIALIST with DCB of R STORM CHASER SH: Former Smoker; Denies Alcohol and illegal drug use; Live with daughter FH: States: No known family hx Allergies: Aspirin Medication: Reviewed Review of Systems - Review of Systems Review of Systems: ROS- Patient denies any fever or chills, denies any BYRD, denies any cough but c/o sob , denies any chest pain, denies any abd. pain, denies any nausea , denies any diarrhea, denies any dysurea has chronic pain in the legs from her PVD. Past Patient History - Infectious Disease Hx of Infectious Diseases: None - Tetanus Immunizations Tetanus Immunization: Unknown - Past Medical History & Family History Past Medical History?: Yes - Past Social History Smoking Status: Former Smoker Home Situation {Lives}: Alf - CARDIAC Hx Cardiac Disorders: Yes Hx Hypercholesterolemia: Yes Hx Hypertension: Yes - PULMONARY Hx Respiratory Disorders: Yes Hx Asthma: Yes Hx Chronic Obstructive Pulmonary Disease (COPD): No (Daughter denies) Hx Pneumonia: Yes (Daughter denies) - NEUROLOGICAL Hx Neurological Disorder: Yes Other/Comment: DM Neuropathy - HEENT Hx HEENT Problems: Yes (Allergic Rhinitis.) - RENAL Hx Chronic Kidney Disease: Yes - ENDOCRINE/METABOLIC Hx Endocrine Disorders: Yes Hx Diabetes Mellitus Type 2: Yes - HEMATOLOGICAL/ONCOLOGICAL Hx Blood Disorders: Yes Hx Anemia: Yes - INTEGUMENTARY Hx Dermatological Problems: No - MUSCULOSKELETAL/RHEUMATOLOGICAL Hx Musculoskeletal Disorders: Yes Hx Arthritis: Yes Hx Falls: No Hx Osteoporosis: Yes - GASTROINTESTINAL Hx Gastrointestinal Disorders: Yes Hx Gastroesophageal Reflux: Yes - GENITOURINARY/GYNECOLOGICAL Hx Genitourinary Disorders: No - PSYCHIATRIC Hx Psychophysiologic Disorder: Yes Hx Anxiety: Yes Hx Depression: Yes Hx Substance Use: No - SURGICAL HISTORY Hx Surgeries: Yes Hx Angiogram: Yes (Angiogram lower extremities Dr Rodriges) Hx Orthopedic Surgery: Yes (left arm surgery) Other/Comment: R Femoral atherectomy and angioplasty Dr Zavala - ANESTHESIA Hx Anesthesia: Yes Hx Anesthesia Reactions: No Hx Malignant Hyperthermia: No Has any member of the family had a problem w/ anesthesia?: No Meds Allergies/Adverse Reactions: Allergies Allergy/AdvReac Type Severity Reaction Status Date / Time aspirin AdvReac RASH Verified 10/23/18 20:19 - Medications Medications: Current Medications Acetaminophen (Tylenol 325mg Tab) 650 mg PO Q4 PRN PRN Reason: Pain, Mild (1-3) Amlodipine Besylate (Norvasc) 10 mg PO DAILY [facility] Last Admin: 10/24/18 08:45 Dose: 10 mg Atorvastatin Calcium (Lipitor) 40 mg PO DAILY [facility] Last Admin: 10/24/18 08:45 Dose: 40 mg Benzonatate (Tessalon Perles) 100 mg PO Q8 PRN PRN Reason: Cough Last Admin: 10/24/18 06:27 Dose: 100 mg Cyclobenzaprine HCl (Flexeril) 5 mg PO TID [facility] Last Admin: 10/24/18 09:06 Dose: 5 mg Docusate Sodium (Colace) 100 mg PO BID [facility] Last Admin: 10/24/18 08:45 Dose: 100 mg Ezetimibe (Zetia) 10 mg PO DAILY [facility] Last Admin: 10/24/18 08:47 Dose: 10 mg Enoxaparin Sodium (Lovenox) 70 mg SC HS [facility]; Protocol Ergocalciferol (Drisdol 50,000 Intl Units Cap) 50,000 cap PO QWK [facility] Meropenem 1 gm/ Sodium (Chloride) 100 mls @ 100 mls/hr IVPB Q8 [facility]; Protocol Stop: 10/24/18 23:59 Last Admin: 10/24/18 08:46 Dose: 100 mls/hr Vancomycin HCl 1 gm/ Sodium (Chloride) 250 mls @ 166.667 mls/hr IVPB DAILY [facility]; Protocol Insulin Detemir (Levemir) 30 units SC HS JAIME Insulin Human Regular (Humulin R) 0 units SC ACHS [facility]; Protocol Last Admin: 10/24/18 11:38 Dose: 10 unit Levalbuterol HCl (Xopenex) 1.25 mg INH RQ8 JAIME Methylprednisolone (Solu-Medrol) 80 mg IV Q8 [facility] Last Admin: 10/24/18 10:31 Dose: 80 mg Montelukast Sodium (Singulair) 10 mg PO DAILY [facility] Last Admin: 10/24/18 08:47 Dose: 10 mg Ondansetron HCl (Zofran Odt) 4 mg PO Q8H PRN PRN Reason: Nausea/Vomiting Oxycodone/Acetaminophen (Percocet 5/325 Mg Tab) 1 tab PO Q6 PRN PRN Reason: Pain, severe (8-10) Stop: 10/27/18 05:27 Pantoprazole Sodium (Protonix Ec Tab) 40 mg PO DAILY [facility] Last Admin: 10/24/18 08:45 Dose: 40 mg Promethazine HCl/Codeine (Phenergan/Codeine Oral Syrup) 10 ml PO Q6 [facility] Last Admin: 10/24/18 10:28 Dose: 10 ml Silver Sulfadiazine (Silvadene 1% 20 Gm) 1 ea TOP DAILY [facility] Last Admin: 10/24/18 09:07 Dose: 1 unit Temazepam (Restoril) 30 mg PO DAILY [facility] Last Admin: 10/24/18 08:45 Dose: 30 mg Physical Exam - Constitutional Appears: Non-toxic, No Acute Distress - Head Exam Head Exam: ATRAUMATIC - Eye Exam Eye Exam: EOMI, PERRL - ENT Exam ENT Exam: Normal Oropharynx - Neck Exam Neck exam: Positive for: Full Rom - Respiratory Exam Respiratory Exam: NORMAL BREATHING PATTERN Additional comments: no crackles No wheezing - Cardiovascular Exam Cardiovascular Exam: RRR, +S1, +S2 - GI/Abdominal Exam GI & Abdominal Exam: Normal Bowel Sounds, Soft Additional comments: NT, ND - Extremities Exam Additional comments: right great toe distal tip with small round dry ulcer, no discharge, no erythema, no tenderness, no edema Much better than last admission - Neurological Exam Neurological exam: Alert, Oriented x3 Results - Vital Signs Recent Vital Signs: Last Vital Signs Temp 97.6 F 10/24/18 08:37 Pulse 118 H 10/24/18 08:45 Resp 20 10/24/18 08:37 BP 164/75 H 10/24/18 08:45 Pulse Ox 95 10/24/18 08:37 - Labs Result Diagrams: 10/23/18 21:07 10/23/18 21:27 Labs: Laboratory Results - last 24 hr 10/23/18 10/23/18 10/23/18 20:52 21:07 21:07 WBC 10.9 H RBC 3.82 Hgb 10.5 L D Hct 32.4 L MCV 84.8 MCH 27.5 MCHC 32.5 L RDW 14.2 Plt Count 333 MPV 9.2 Neut % (Auto) 58.7 Lymph % (Auto) 19.1 L Wright % (Auto) 11.2 H Eos % (Auto) 10.3 H Baso % (Auto) 0.7 Neut # (Auto) 6.4 Lymph # (Auto) 2.1 Wright # (Auto) 1.2 H Eos # (Auto) 1.1 H Baso # (Auto) 0.1 pO2 28 L VBG pH 7.38 VBG pCO2 52 VBG HCO3 27.7 VBG Total CO2 32.4 H VBG O2 Sat (Calc) 53.0 VBG Base Excess 4.8 H VBG Potassium 5.0 Sodium 136.0 Chloride 102.0 Glucose 401 H* D Lactate 2.0 FiO2 21.0 Blood Gas Comments Vbg Crit Value Called To Wolfgang salazar r.n. Crit Value Called By Chiquita Crit Value Read Back Y Blood Gas Notified Time 2113 Potassium Carbon Dioxide Anion Gap BUN Creatinine Est GFR ( Amer) Est GFR (Non-Af Amer) POC Glucose (mg/dL) Random Glucose Calcium Total Bilirubin AST ALT Alkaline Phosphatase Troponin I NT-Pro-B Natriuret Pep Total Protein Albumin Globulin Albumin/Globulin Ratio Venous Blood Potassium 5.0 Vancomycin Trough Influenza Typ A,B (EIA) Negative for flu a/b 10/23/18 10/24/18 10/24/18 21:27 05:31 10:44 WBC RBC Hgb Hct MCV MCH MCHC RDW Plt Count MPV Neut % (Auto) Lymph % (Auto) Wright % (Auto) Eos % (Auto) Baso % (Auto) Neut # (Auto) Lymph # (Auto) Wright # (Auto) Eos # (Auto) Baso # (Auto) pO2 VBG pH VBG pCO2 VBG HCO3 VBG Total CO2 VBG O2 Sat (Calc) VBG Base Excess VBG Potassium Sodium 137 Chloride 95 L Glucose Lactate FiO2 Blood Gas Comments Crit Value Called To Crit Value Called By Crit Value Read Back Blood Gas Notified Time Potassium 4.8 Carbon Dioxide 28 Anion Gap 19 BUN 30 H Creatinine 1.4 H Est GFR ( Amer) 44 Est GFR (Non-Af Amer) 36 POC Glucose (mg/dL) > 500 H* 367 H Random Glucose 399 H Calcium 10.1 Total Bilirubin 0.2 AST 29 ALT 34 Alkaline Phosphatase 124 Troponin I < 0.0120 NT-Pro-B Natriuret Pep 54.2 Total Protein 8.0 Albumin 4.2 Globulin 3.8 Albumin/Globulin Ratio 1.1 Venous Blood Potassium Vancomycin Trough Influenza Typ A,B (EIA) 10/24/18 10:50 WBC RBC Hgb Hct MCV MCH MCHC RDW Plt Count MPV Neut % (Auto) Lymph % (Auto) Wright % (Auto) Eos % (Auto) Baso % (Auto) Neut # (Auto) Lymph # (Auto) Wright # (Auto) Eos # (Auto) Baso # (Auto) pO2 VBG pH VBG pCO2 VBG HCO3 VBG Total CO2 VBG O2 Sat (Calc) VBG Base Excess VBG Potassium Sodium Chloride Glucose Lactate FiO2 Blood Gas Comments Crit Value Called To Crit Value Called By Crit Value Read Back Blood Gas Notified Time Potassium Carbon Dioxide Anion Gap BUN Creatinine Est GFR ( Amer) Est GFR (Non-Af Amer) POC Glucose (mg/dL) Random Glucose Calcium Total Bilirubin AST ALT Alkaline Phosphatase Troponin I NT-Pro-B Natriuret Pep Total Protein Albumin Globulin Albumin/Globulin Ratio Venous Blood Potassium Vancomycin Trough 12.6 H Influenza Typ A,B (EIA) Laboratory Results - last 72 hr 10/23/18 10/23/18 10/23/18 20:52 21:07 21:07 WBC 10.9 H RBC 3.82 Hgb 10.5 L D Hct 32.4 L MCV 84.8 MCH 27.5 MCHC 32.5 L RDW 14.2 Plt Count 333 MPV 9.2 Neut % (Auto) 58.7 Lymph % (Auto) 19.1 L Wright % (Auto) 11.2 H Eos % (Auto) 10.3 H Baso % (Auto) 0.7 Neut # (Auto) 6.4 Lymph # (Auto) 2.1 Wright # (Auto) 1.2 H Eos # (Auto) 1.1 H Baso # (Auto) 0.1 pO2 28 L VBG pH 7.38 VBG pCO2 52 VBG HCO3 27.7 VBG Total CO2 32.4 H VBG O2 Sat (Calc) 53.0 VBG Base Excess 4.8 H VBG Potassium 5.0 Sodium 136.0 Chloride 102.0 Glucose 401 H* D Lactate 2.0 FiO2 21.0 Blood Gas Comments Vbg Crit Value Called To Wolfgang salazar r.n. Crit Value Called By Chiquita Crit Value Read Back Y Blood Gas Notified Time 2113 Potassium Carbon Dioxide Anion Gap BUN Creatinine Est GFR ( Amer) Est GFR (Non-Af Amer) POC Glucose (mg/dL) Random Glucose Calcium Total Bilirubin AST ALT Alkaline Phosphatase Troponin I NT-Pro-B Natriuret Pep Total Protein Albumin Globulin Albumin/Globulin Ratio Venous Blood Potassium 5.0 Vancomycin Trough Influenza Typ A,B (EIA) Negative for flu a/b 10/23/18 10/24/18 10/24/18 21:27 05:31 10:44 WBC RBC Hgb Hct MCV MCH MCHC RDW Plt Count MPV Neut % (Auto) Lymph % (Auto) Wright % (Auto) Eos % (Auto) Baso % (Auto) Neut # (Auto) Lymph # (Auto) Wright # (Auto) Eos # (Auto) Baso # (Auto) pO2 VBG pH VBG pCO2 VBG HCO3 VBG Total CO2 VBG O2 Sat (Calc) VBG Base Excess VBG Potassium Sodium 137 Chloride 95 L Glucose Lactate FiO2 Blood Gas Comments Crit Value Called To Crit Value Called By Crit Value Read Back Blood Gas Notified Time Potassium 4.8 Carbon Dioxide 28 Anion Gap 19 BUN 30 H Creatinine 1.4 H Est GFR ( Amer) 44 Est GFR (Non-Af Amer) 36 POC Glucose (mg/dL) > 500 H* 367 H Random Glucose 399 H Calcium 10.1 Total Bilirubin 0.2 AST 29 ALT 34 Alkaline Phosphatase 124 Troponin I < 0.0120 NT-Pro-B Natriuret Pep 54.2 Total Protein 8.0 Albumin 4.2 Globulin 3.8 Albumin/Globulin Ratio 1.1 Venous Blood Potassium Vancomycin Trough Influenza Typ A,B (EIA) 10/24/18 10:50 WBC RBC Hgb Hct MCV MCH MCHC RDW Plt Count MPV Neut % (Auto) Lymph % (Auto) Wright % (Auto) Eos % (Auto) Baso % (Auto) Neut # (Auto) Lymph # (Auto) Wright # (Auto) Eos # (Auto) Baso # (Auto) pO2 VBG pH VBG pCO2 VBG HCO3 VBG Total CO2 VBG O2 Sat (Calc) VBG Base Excess VBG Potassium Sodium Chloride Glucose Lactate FiO2 Blood Gas Comments Crit Value Called To Crit Value Called By Crit Value Read Back Blood Gas Notified Time Potassium Carbon Dioxide Anion Gap BUN Creatinine Est GFR ( Amer) Est GFR (Non-Af Amer) POC Glucose (mg/dL) Random Glucose Calcium Total Bilirubin AST ALT Alkaline Phosphatase Troponin I NT-Pro-B Natriuret Pep Total Protein Albumin Globulin Albumin/Globulin Ratio Venous Blood Potassium Vancomycin Trough 12.6 H Influenza Typ A,B (EIA) Microbiology 09/20/18 18:30 Foot - Right Gram Stain - Final 09/20/18 18:30 Foot - Right Wound Culture - Final Escherichia Coli Corynebacterium Species 09/20/18 18:30 Blood-Venous Blood Culture - Final 09/20/18 18:30 Blood-Venous Gram Stain - Final NO GROWTH AFTER 5 DAYS TEST NOT PERFORMED 09/20/18 18:05 Blood-Venous Blood Culture - Final 09/20/18 18:05 Blood-Venous Gram Stain - Final NO GROWTH AFTER 5 DAYS TEST NOT PERFORMED 09/26/18 12:30 Toe Gram Stain - Final 09/26/18 12:30 Toe Wound Culture - Final Corynebacterium Species Krystin Albicans Accession No. 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 This accentuating the central pulmonary vascular markings No consolidation appreciated. PLEURA: No significant pleural effusion identified, no pneumothorax apparent. CARDIOVASCULAR: No aortic atherosclerotic calcification present. Cardiomegaly mild pulmonary venous congestion suspect. Interval right PICC line insertion tip cavoatrial junction. OSSEOUS STRUCTURES: Thoracic spondylosis. VISUALIZED UPPER ABDOMEN: Normal. OTHER FINDINGS: None. IMPRESSION: Cardiomegaly and interval increased pulmonary venous congestion. Interval right PICC line insertion-tip cavoatrial junction. No pneumothorax seen Assessment & Plan (1) COPD exacerbation Status: Acute Priority: High (2) Diabetic neuropathy Status: Acute (3) Chronic foot pain Status: Acute (4) Diabetic foot infection Status: Acute (5) Foot ulcer, right Status: Acute (6) PVD (peripheral vascular disease) Status: Acute - Assessment and Plan (Free Text) Assessment: A/P- 78 year old female with DM II, HTN, PVD s/p multiple right leg atherectomy and angioplasty admitted with copd exacerbation and has right great toe ulcer that has been present. clinically the right toe ulcer looks much improved. dry and no erythema . has remained on meropenem and vacno based on last admission foot ulcer cx for ESBL and corynebacterium. normal wbc count wound cx from last admission- esbl e.coli and corynebacterium last admission MRI as per report negative for OM. Plan- advise to continue with above 2 abx ( meropnem and vacno) .keep vanco trough <15. advise to continue these abx for 1 more week. wound care as per podiatry. check ESR. COPD management as per PMD. All above d/w patient and her daughter and they verbalize full understanding of all above and agree with above plan of care. Thank you for allowing me to take part in the care of this patient.
[2018-10-24] MEDS ORDERED: Povidone Iodine Topical 10% Sol ONE (12:40)
[2018-10-24] MEDS ORDERED: Enoxaparin 80 mg Syringe SC SCH ×2 (15:00→22:00)
--- NOTE | 2018-10-24 16:15 | CP.PCM.HP ---
History of Present Illness - History of Present Illness History of Present Illness: CC: SOB 78 Y/O F, brought to ER [facility], [place], on 10/23/18 to be evaluated for moderate SOB, associated to intractable cough, non productive, non bloody, intermittent, that has been sustaining but gradually increasing for a month, Pt using cough medication, DuoNeb neb. treatments with no relief. Patient was refered from [facility] to my office and She was with paroxismal cough, SOB, wheezing and She was refered to ER [facility] for AD Hx of multiple chronic medical conditions, including COPD, A Fib, HTN, DMII, Diabetes Neuropathy, PVD with recent R femoral Atherectomy, Angioplasty by Dr Zavala, Graves Disease, also Hx of R great toe abscess/infection in her last admission to [facility] on 09/20/18 (s/p I&D), discharged on 10/01/[address] [facility]. Aggravated symptoms: Urinary incontinence when coughing, BS up to 500, R foot pain 2nd to recent R toe abscess, s/p I&D R great toe. Aggravated factor: Coughing, walking. Pt denied: Fever, chills, n/v/d, abdominal pain, CP, syncope, dizziness, sick contact. CXR: Increased pulmonary venous congestion. EKG: Sinus tachycardia. Present on Admission - Present on Admission Any Indicators Present on Admission: Yes History of Uncontrolled Diabetes: Yes Review of Systems - Constitutional Constitutional: Weakness - EENT Eyes: Other (negative) Ears: Other (negative) Nose/Mouth/Throat: Other (negative) - Cardiovascular Cardiovascular: Rapid Heart Rate - Respiratory Respiratory: Cough, Dyspnea, Chest Congestion - Gastrointestinal Gastrointestinal: Other (negative) - Genitourinary Genitourinary: Urinary Incontinence (when coughing) - Musculoskeletal Musculoskeletal: Arthralgias, Other (R foot pain.) - Integumentary Integumentary: Wounds (R foot, dry) - Neurological Neurological: Other (negative) - Psychiatric Psychiatric: Anxiety, Depression - Endocrine Endocrine: Other (negative) - Hematologic/Lymphatic Hematologic: Other (negative) Past Patient History - Infectious Disease Hx of Infectious Diseases: None - Tetanus Immunizations Tetanus Immunization: Unknown - Past Medical History & Family History Past Medical History?: Yes Pertinent Family History: Unknown - Past Social History Smoking Status: Former Smoker Alcohol: None Drugs: Denies Home Situation {Lives}: Shelter - CARDIAC Hx Cardiac Disorders: Yes Hx Hypercholesterolemia: Yes Hx Hypertension: Yes - PULMONARY Hx Respiratory Disorders: Yes Hx Asthma: Yes Hx Chronic Obstructive Pulmonary Disease (COPD): Yes (Daughter denies) Hx Pneumonia: Yes (Daughter denies) - NEUROLOGICAL Hx Neurological Disorder: Yes Other/Comment: DM Neuropathy - HEENT Hx HEENT Problems: Yes (Allergic Rhinitis.) - RENAL Hx Chronic Kidney Disease: Yes - ENDOCRINE/METABOLIC Hx Endocrine Disorders: Yes Hx Diabetes Mellitus Type 2: Yes - HEMATOLOGICAL/ONCOLOGICAL Hx Blood Disorders: Yes Hx Anemia: Yes - INTEGUMENTARY Hx Dermatological Problems: No - MUSCULOSKELETAL/RHEUMATOLOGICAL Hx Musculoskeletal Disorders: Yes Hx Arthritis: Yes Hx Back Pain: Yes Hx Falls: No Hx Osteoporosis: Yes - GASTROINTESTINAL Hx Gastrointestinal Disorders: Yes Hx Gastroesophageal Reflux: Yes - GENITOURINARY/GYNECOLOGICAL Hx Genitourinary Disorders: No - PSYCHIATRIC Hx Psychophysiologic Disorder: Yes Hx Anxiety: Yes Hx Depression: Yes Hx Substance Use: No - SURGICAL HISTORY Hx Surgeries: Yes Hx Angiogram: Yes (Angiogram lower extremities Dr Rodriges) Hx Orthopedic Surgery: Yes (left arm surgery) Other/Comment: R Femoral atherectomy and angioplasty Dr Zavala - ANESTHESIA Hx Anesthesia: Yes Hx Anesthesia Reactions: No Hx Malignant Hyperthermia: No Has any member of the family had a problem w/ anesthesia?: No Meds Allergies/Adverse Reactions: Allergies Allergy/AdvReac Type Severity Reaction Status Date / Time aspirin AdvReac RASH Verified 10/23/18 20:19 Physical Exam - Constitutional Appears: No Acute Distress - Head Exam Head Exam: NORMAL INSPECTION - Eye Exam Eye Exam: PERRL - ENT Exam ENT Exam: Normal Exam - Neck Exam Neck exam: Positive for: Normal Inspection - Respiratory Exam Respiratory Exam: Decreased Breath Sounds (at bases) - Cardiovascular Exam Cardiovascular Exam: Tachycardia, Systolic Murmur - GI/Abdominal Exam GI & Abdominal Exam: Normal Bowel Sounds, Soft - Extremities Exam Additional comments: R Great toe wound closed, trace edema R leg, PICC line upper R arm, - Back Exam Back exam: NORMAL INSPECTION - Neurological Exam Neurological exam: Alert, Oriented x3 Additional comments: Decreased sensation R-L legs and feet, no focal motor deficit. - Psychiatric Exam Psychiatric exam: Anxious, Depressed - Skin Skin Exam: Warm Results - Vital Signs Recent Vital Signs: Last Vital Signs Temp 97.9 F 10/24/18 12:17 Pulse 116 H 10/24/18 12:17 Resp 20 10/24/18 12:17 BP 140/71 10/24/18 12:17 Pulse Ox 99 10/24/18 12:17 reviewed Arie - Labs Result Diagrams: 10/26/18 04:45 10/26/18 04:45 Labs: Laboratory Results - last 24 hr 10/23/18 10/23/18 10/23/18 20:52 21:07 21:07 WBC 10.9 H RBC 3.82 Hgb 10.5 L D Hct 32.4 L MCV 84.8 MCH 27.5 MCHC 32.5 L RDW 14.2 Plt Count 333 MPV 9.2 Neut % (Auto) 58.7 Lymph % (Auto) 19.1 L [place] % (Auto) 11.2 H Eos % (Auto) 10.3 H Baso % (Auto) 0.7 Neut # (Auto) 6.4 Lymph # (Auto) 2.1 [place] # (Auto) 1.2 H Eos # (Auto) 1.1 H Baso # (Auto) 0.1 ESR pO2 28 L VBG pH 7.38 VBG pCO2 52 VBG HCO3 27.7 VBG Total CO2 32.4 H VBG O2 Sat (Calc) 53.0 VBG Base Excess 4.8 H VBG Potassium 5.0 Sodium 136.0 Chloride 102.0 Glucose 401 H* D Lactate 2.0 FiO2 21.0 Blood Gas Comments Vbg Crit Value Called To Wolfgang salazar r.n. Crit Value Called By Chiquita Crit Value Read Back Y Blood Gas Notified Time 2113 Potassium Carbon Dioxide Anion Gap BUN Creatinine Est GFR ( Amer) Est GFR (Non-Af Amer) POC Glucose (mg/dL) Random Glucose Calcium Total Bilirubin AST ALT Alkaline Phosphatase Troponin I NT-Pro-B Natriuret Pep Total Protein Albumin Globulin Albumin/Globulin Ratio Venous Blood Potassium 5.0 Vancomycin Trough Influenza Typ A,B (EIA) Negative for flu a/b 10/23/18 10/24/18 10/24/18 21:27 05:31 10:44 WBC RBC Hgb Hct MCV MCH MCHC RDW Plt Count MPV Neut % (Auto) Lymph % (Auto) [place] % (Auto) Eos % (Auto) Baso % (Auto) Neut # (Auto) Lymph # (Auto) [place] # (Auto) Eos # (Auto) Baso # (Auto) ESR pO2 VBG pH VBG pCO2 VBG HCO3 VBG Total CO2 VBG O2 Sat (Calc) VBG Base Excess VBG Potassium Sodium 137 Chloride 95 L Glucose Lactate FiO2 Blood Gas Comments Crit Value Called To Crit Value Called By Crit Value Read Back Blood Gas Notified Time Potassium 4.8 Carbon Dioxide 28 Anion Gap 19 BUN 30 H Creatinine 1.4 H Est GFR ( Amer) 44 Est GFR (Non-Af Amer) 36 POC Glucose (mg/dL) > 500 H* 367 H Random Glucose 399 H Calcium 10.1 Total Bilirubin 0.2 AST 29 ALT 34 Alkaline Phosphatase 124 Troponin I < 0.0120 NT-Pro-B Natriuret Pep 54.2 Total Protein 8.0 Albumin 4.2 Globulin 3.8 Albumin/Globulin Ratio 1.1 Venous Blood Potassium Vancomycin Trough Influenza Typ A,B (EIA) 10/24/18 10/24/18 10:50 14:18 WBC RBC Hgb Hct MCV MCH MCHC RDW Plt Count MPV Neut % (Auto) Lymph % (Auto) [place] % (Auto) Eos % (Auto) Baso % (Auto) Neut # (Auto) Lymph # (Auto) [place] # (Auto) Eos # (Auto) Baso # (Auto) ESR 72 H pO2 VBG pH VBG pCO2 VBG HCO3 VBG Total CO2 VBG O2 Sat (Calc) VBG Base Excess VBG Potassium Sodium Chloride Glucose Lactate FiO2 Blood Gas Comments Crit Value Called To Crit Value Called By Crit Value Read Back Blood Gas Notified Time Potassium Carbon Dioxide Anion Gap BUN Creatinine Est GFR ( Amer) Est GFR (Non-Af Amer) POC Glucose (mg/dL) Random Glucose Calcium Total Bilirubin AST ALT Alkaline Phosphatase Troponin I NT-Pro-B Natriuret Pep Total Protein Albumin Globulin Albumin/Globulin Ratio Venous Blood Potassium Vancomycin Trough 12.6 H Influenza Typ A,B (EIA) reviewed J.P. - EKG Data EKG comments: Reviewed J.P. - Imaging and Cardiology Chest x-ray Status: Report reviewed by me (J.P.) Assessment & Plan (1) COPD exacerbation Status: Acute Priority: High (2) Chronic cough Status: Acute Priority: High (3) Hyperglycemia due to type 2 diabetes mellitus Status: Acute Priority: High (4) Foot ulcer, right Status: Chronic Priority: High (5) Diabetic neuropathy Status: Chronic Priority: Medium (6) HTN (hypertension) Status: Chronic Priority: Medium (7) PVD (peripheral vascular disease) Status: Chronic Priority: Medium (8) Anxiety and depression Status: Chronic Priority: Medium - Assessment and Plan (Free Text) Plan: F/U Bood C-S, Continue Solu-Medrol, Phenergan with Co, Tesshi Reid, Singulair, Vanco, Merren, Insulin, Lovenox and rest of tx. ID consult appreciated. Cardiology consult. - Date & Time Date: 10/24/18 Time: 11:30
[2018-10-24] MEDS: Enoxaparin 30 mg Syringe SC SCH (16:39)
[2018-10-24] MEDS: Levalbuterol 1.25 MG/3 ML Inhal Soln UD INH SCH ×2 (16:55→23:27)
[2018-10-24] MEDS: Insulin Lispro (humaLOG) 100 Units/ml Inj SC SCH (17:48)
--- NOTE | 2018-10-24 19:56 | CP.PCM.CON ---
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 Review of Systems - Review of Systems Systems not reviewed;Unavailable: Acuity of Condition - Constitutional Constitutional: As Per HPI - EENT Eyes: As Per HPI Ears: As Per HPI Nose/Mouth/Throat: As Per HPI - Breasts Breasts: As Per HPI - Cardiovascular Cardiovascular: As Per HPI - Respiratory Respiratory: As Per HPI - Gastrointestinal Gastrointestinal: As Per HPI - Genitourinary Genitourinary: As Per HPI - Reproductive: Female Reproductive:Female: As Per HPI - Menstruation Menstruation: As Per HPI - Musculoskeletal Musculoskeletal: As Per HPI - Integumentary Integumentary: As Per HPI - Neurological Neurological: As Per HPI - Psychiatric Psychiatric: As Per HPI - Endocrine Endocrine: As Per HPI - Hematologic/Lymphatic Hematologic: As Per HPI Past Patient History - Infectious Disease Hx of Infectious Diseases: None - Tetanus Immunizations Tetanus Immunization: Unknown - Past Medical History & Family History Past Medical History?: Yes - Past Social History Smoking Status: Former Smoker Alcohol: None Drugs: Denies Home Situation {Lives}: Fpc - CARDIAC Hx Cardiac Disorders: Yes Hx Hypercholesterolemia: Yes Hx Hypertension: Yes - PULMONARY Hx Respiratory Disorders: Yes Hx Asthma: Yes Hx Chronic Obstructive Pulmonary Disease (COPD): Yes (Daughter denies) Hx Pneumonia: Yes (Daughter denies) - NEUROLOGICAL Hx Neurological Disorder: Yes Other/Comment: DM Neuropathy - HEENT Hx HEENT Problems: Yes (Allergic Rhinitis.) - RENAL Hx Chronic Kidney Disease: Yes - ENDOCRINE/METABOLIC Hx Endocrine Disorders: Yes Hx Diabetes Mellitus Type 2: Yes - HEMATOLOGICAL/ONCOLOGICAL Hx Blood Disorders: Yes Hx Anemia: Yes - INTEGUMENTARY Hx Dermatological Problems: No - MUSCULOSKELETAL/RHEUMATOLOGICAL Hx Musculoskeletal Disorders: Yes Hx Arthritis: Yes Hx Back Pain: Yes Hx Falls: No Hx Osteoporosis: Yes - GASTROINTESTINAL Hx Gastrointestinal Disorders: Yes Hx Gastroesophageal Reflux: Yes - GENITOURINARY/GYNECOLOGICAL Hx Genitourinary Disorders: No - PSYCHIATRIC Hx Psychophysiologic Disorder: Yes Hx Anxiety: Yes Hx Depression: Yes Hx Substance Use: No - SURGICAL HISTORY Hx Surgeries: Yes Hx Angiogram: Yes (Angiogram lower extremities Dr Rodriges) Hx Orthopedic Surgery: Yes (left arm surgery) Other/Comment: R Femoral atherectomy and angioplasty Dr Zavala - ANESTHESIA Hx Anesthesia: Yes Hx Anesthesia Reactions: No Hx Malignant Hyperthermia: No Has any member of the family had a problem w/ anesthesia?: No Meds Allergies/Adverse Reactions: Allergies Allergy/AdvReac Type Severity Reaction Status Date / Time aspirin AdvReac RASH Verified 10/23/18 20:19 - Medications Medications: Current Medications Acetaminophen (Tylenol 325mg Tab) 650 mg PO Q4 PRN PRN Reason: Pain, Mild (1-3) Amlodipine Besylate (Norvasc) 10 mg PO DAILY PENDING SALE TO [facility] Last Admin: 10/24/18 08:45 Dose: 10 mg Atorvastatin Calcium (Lipitor) 40 mg PO DAILY PENDING SALE TO [facility] Last Admin: 10/24/18 08:45 Dose: 40 mg Benzonatate (Tessalon Perles) 100 mg PO Q8 PRN PRN Reason: Cough Last Admin: 10/24/18 06:27 Dose: 100 mg Clopidogrel Bisulfate (Plavix) 75 mg PO DAILY PENDING SALE TO [facility] Cyclobenzaprine HCl (Flexeril) 5 mg PO TID PENDING SALE TO [facility] Last Admin: 10/24/18 16:38 Dose: 5 mg Docusate Sodium (Colace) 100 mg PO BID PENDING SALE TO [facility] Last Admin: 10/24/18 16:37 Dose: Not Given Ezetimibe (Zetia) 10 mg PO DAILY PENDING SALE TO [facility] Last Admin: 10/24/18 08:47 Dose: 10 mg Enoxaparin Sodium (Lovenox) 30 mg SC DAILY PENDING SALE TO [facility]; Protocol Last Admin: 10/24/18 16:39 Dose: 30 mg Ergocalciferol (Drisdol 50,000 Intl Units Cap) 50,000 cap PO QWK JAIME Meropenem 1 gm/ Sodium (Chloride) 100 mls @ 100 mls/hr IVPB Q8 JAIME; Protocol Stop: 10/24/18 23:59 Last Admin: 10/24/18 17:07 Dose: 100 mls/hr Vancomycin HCl 1 gm/ Sodium (Chloride) 250 mls @ 166.667 mls/hr IVPB DAILY PENDING SALE TO [facility]; Protocol Last Admin: 10/24/18 11:50 Dose: 166.667 mls/hr Insulin Detemir (Levemir) 30 units SC HS JAIME Insulin Human Lispro (Humalog) 18 units SC AC PENDING SALE TO [facility] Last Admin: 10/24/18 17:48 Dose: 18 units Insulin Human Regular (Humulin R) 0 units SC ACHS PENDING SALE TO [facility]; Protocol Last Admin: 10/24/18 17:45 Dose: 10 unit Levalbuterol HCl (Xopenex) 1.25 mg INH RQ8 PENDING SALE TO [facility] Last Admin: 10/24/18 16:55 Dose: 1.25 mg Methylprednisolone (Solu-Medrol) 80 mg IV Q8 PENDING SALE TO [facility] Last Admin: 10/24/18 16:43 Dose: 80 mg Montelukast Sodium (Singulair) 10 mg PO DAILY PENDING SALE TO [facility] Last Admin: 10/24/18 08:47 Dose: 10 mg Ondansetron HCl (Zofran Odt) 4 mg PO Q8H PRN PRN Reason: Nausea/Vomiting Oxycodone/Acetaminophen (Percocet 5/325 Mg Tab) 1 tab PO Q6 PRN PRN Reason: Pain, severe (8-10) Stop: 10/27/18 05:27 Pantoprazole Sodium (Protonix Ec Tab) 40 mg PO DAILY PENDING SALE TO [facility] Last Admin: 10/24/18 08:45 Dose: 40 mg Promethazine HCl/Codeine (Phenergan/Codeine Oral Syrup) 10 ml PO Q6 PENDING SALE TO [facility] Last Admin: 10/24/18 16:42 Dose: 10 ml Silver Sulfadiazine (Silvadene 1% 20 Gm) 1 ea TOP DAILY PENDING SALE TO [facility] Last Admin: 10/24/18 09:07 Dose: 1 unit Temazepam (Restoril) 30 mg PO DAILY PENDING SALE TO [facility] Last Admin: 10/24/18 08:45 Dose: 30 mg Physical Exam - Constitutional Appears: Well - Head Exam Head Exam: ATRAUMATIC, NORMAL INSPECTION, NORMOCEPHALIC - Eye Exam Eye Exam: EOMI, Normal appearance, PERRL Pupil Exam: NORMAL ACCOMODATION, PERRL - ENT Exam ENT Exam: Mucous Membranes Moist, Normal Exam - Neck Exam Neck exam: Positive for: Normal Inspection - Respiratory Exam Respiratory Exam: Clear to Auscultation Bilateral, Rales, NORMAL BREATHING PATTERN - Cardiovascular Exam Cardiovascular Exam: REGULAR RHYTHM, RRR, +S1, +S2, Systolic Murmur - GI/Abdominal Exam GI & Abdominal Exam: Normal Bowel Sounds, Soft. absent: Tenderness - Extremities Exam Extremities exam: Positive for: normal inspection - Back Exam Back exam: NORMAL INSPECTION - Neurological Exam Neurological exam: Alert, CN II-XII Intact, Normal Gait, Oriented x3, Reflexes Normal - Psychiatric Exam Psychiatric exam: Normal Affect, Normal Mood - Skin Skin Exam: Dry, Intact, Normal Color, Warm Results - Vital Signs Recent Vital Signs: Last Vital Signs Temp 97 F L 10/24/18 16:46 Pulse 109 H 10/24/18 16:56 Resp 18 10/24/18 16:46 BP 133/78 10/24/18 16:46 Pulse Ox 94 L 10/24/18 16:46 - Labs Result Diagrams: 10/23/18 21:07 10/23/18 21:27 Labs: Laboratory Results - last 24 hr 10/23/18 10/23/18 10/23/18 20:52 21:07 21:07 WBC 10.9 H RBC 3.82 Hgb 10.5 L D Hct 32.4 L MCV 84.8 MCH 27.5 MCHC 32.5 L RDW 14.2 Plt Count 333 MPV 9.2 Neut % (Auto) 58.7 Lymph % (Auto) 19.1 L [place] % (Auto) 11.2 H Eos % (Auto) 10.3 H Baso % (Auto) 0.7 Neut # (Auto) 6.4 Lymph # (Auto) 2.1 [place] # (Auto) 1.2 H Eos # (Auto) 1.1 H Baso # (Auto) 0.1 ESR pO2 28 L VBG pH 7.38 VBG pCO2 52 VBG HCO3 27.7 VBG Total CO2 32.4 H VBG O2 Sat (Calc) 53.0 VBG Base Excess 4.8 H VBG Potassium 5.0 Sodium 136.0 Chloride 102.0 Glucose 401 H* D Lactate 2.0 FiO2 21.0 Blood Gas Comments Vbg Crit Value Called To Wolfgang salazar r.n. Crit Value Called By Chiquita Crit Value Read Back Y Blood Gas Notified Time 2113 Potassium Carbon Dioxide Anion Gap BUN Creatinine Est GFR ( Amer) Est GFR (Non-Af Amer) POC Glucose (mg/dL) Random Glucose Calcium Total Bilirubin AST ALT Alkaline Phosphatase Troponin I NT-Pro-B Natriuret Pep Total Protein Albumin Globulin Albumin/Globulin Ratio Venous Blood Potassium 5.0 Vancomycin Trough Influenza Typ A,B (EIA) Negative for flu a/b 10/23/18 10/24/18 10/24/18 21:27 05:31 10:44 WBC RBC Hgb Hct MCV MCH MCHC RDW Plt Count MPV Neut % (Auto) Lymph % (Auto) [place] % (Auto) Eos % (Auto) Baso % (Auto) Neut # (Auto) Lymph # (Auto) [place] # (Auto) Eos # (Auto) Baso # (Auto) ESR pO2 VBG pH VBG pCO2 VBG HCO3 VBG Total CO2 VBG O2 Sat (Calc) VBG Base Excess VBG Potassium Sodium 137 Chloride 95 L Glucose Lactate FiO2 Blood Gas Comments Crit Value Called To Crit Value Called By Crit Value Read Back Blood Gas Notified Time Potassium 4.8 Carbon Dioxide 28 Anion Gap 19 BUN 30 H Creatinine 1.4 H Est GFR ( Amer) 44 Est GFR (Non-Af Amer) 36 POC Glucose (mg/dL) > 500 H* 367 H Random Glucose 399 H Calcium 10.1 Total Bilirubin 0.2 AST 29 ALT 34 Alkaline Phosphatase 124 Troponin I < 0.0120 NT-Pro-B Natriuret Pep 54.2 Total Protein 8.0 Albumin 4.2 Globulin 3.8 Albumin/Globulin Ratio 1.1 Venous Blood Potassium Vancomycin Trough Influenza Typ A,B (EIA) 10/24/18 10/24/18 10/24/18 10:50 14:18 16:34 WBC RBC Hgb Hct MCV MCH MCHC RDW Plt Count MPV Neut % (Auto) Lymph % (Auto) [place] % (Auto) Eos % (Auto) Baso % (Auto) Neut # (Auto) Lymph # (Auto) [place] # (Auto) Eos # (Auto) Baso # (Auto) ESR 72 H pO2 VBG pH VBG pCO2 VBG HCO3 VBG Total CO2 VBG O2 Sat (Calc) VBG Base Excess VBG Potassium Sodium Chloride Glucose Lactate FiO2 Blood Gas Comments Crit Value Called To Crit Value Called By Crit Value Read Back Blood Gas Notified Time Potassium Carbon Dioxide Anion Gap BUN Creatinine Est GFR ( Amer) Est GFR (Non-Af Amer) POC Glucose (mg/dL) 495 H* Random Glucose Calcium Total Bilirubin AST ALT Alkaline Phosphatase Troponin I NT-Pro-B Natriuret Pep Total Protein Albumin Globulin Albumin/Globulin Ratio Venous Blood Potassium Vancomycin Trough 12.6 H Influenza Typ A,B (EIA) Assessment & Plan (1) SOB (shortness of breath) Assessment and Plan: BNP and TnI normal etiology most likely pulmonary CXRAY shows pulmonary venous congestion echo done on 10/13 showed normal LVEF and diastolic function CT PE protocol as ABG shows hypoxemia if CT chest PE -ve then consider ischemic evaluation with stress testing Status: Acute (2) COPD exacerbation Assessment and Plan: rx per pulmonary Status: Acute Priority: High (3) Chronic cough Status: Acute Priority: High (4) Diabetic neuropathy Status: Chronic Priority: Medium (5) Foot ulcer, right Status: Chronic Priority: High (6) HTN (hypertension) Assessment and Plan: cont norvasc Status: Chronic Priority: Medium (7) PVD (peripheral vascular disease) Assessment and Plan: cont plavix, lipitor and zetia Status: Chronic Priority: Medium (8) S/P angioplasty Status: Chronic Priority: High
[2018-10-24] MEDS: Insulin Detemir 100 Units/ml Inj SC SCH (22:31)
[2018-10-25] MEDS: Promethazine/Cod 6.25mg-10mg/5ml Syr UD PO SCH ×4 (04:03→22:24)
[2018-10-25 06:14] LABS: BASO % 0.2 % (0.0-2.0); HEMOGLOBIN 9.1 g/dL (12.0-16.0); LYMPH # 1.2 K/uL (1.0-4.3); LYMPH % 8.2 % (20.0-40.0); MEAN CORPUSCULAR HEMOGLOBIN 27.7 pg (27.0-31.0); MEAN PLATELET VOLUME 9.3 fl (7.2-11.7); MONO # 0.4 K/uL (0.0-0.8); MONO % 2.6 % (0.0-10.0); NEUT # 13.3 K/uL (1.8-7.0); PLATELET COUNT 304 K/uL (130-400); RBC 3.28 Mil/uL (3.80-5.20); RED CELL DISTRIBUTION WIDTH 14.1 % (11.5-14.5)
[2018-10-25] MEDS: Insulin Regular 100 units/ml SC SCH ×4 (06:35→22:28)
[2018-10-25] MEDS: Levalbuterol 1.25 MG/3 ML Inhal Soln UD INH SCH ×3 (07:51→23:49)
[2018-10-25 08:44] LABS: BANDS 2 % (0-2); LYMPHOCYTE 11 % (20-50); MONOCYTE 7 % (0-10); NEUTROPHIL 80 % (42-75); PLATELET ESTIMATE NORMAL (NORMAL); TOTAL CELLS COUNTED 100
[2018-10-25 08:45] LABS: HYPOCHROMIC SLIGHT
[2018-10-25] MEDS: Insulin Lispro (humaLOG) 100 Units/ml Inj SC SCH ×3 (10:16→17:57)
[2018-10-25] MEDS: Enoxaparin 30 mg Syringe SC SCH (10:17)
[2018-10-25] MEDS: Silver Sulfadiazine 1% Cream (20 gm) TOP SCH (10:24)
[2018-10-25] MEDS: Pantoprazole 40 mg EC Tab PO SCH (10:25)
[2018-10-25] MEDS: Meropenem 1 GM in Sodium Chloride 0.9% 100 ML IVPB SCH ×2 (13:14→17:56)
--- NOTE | 2018-10-25 14:45 | CP.PCM.PN ---
Subjective - Date & Time of Evaluation Date of Evaluation: 10/25/18 Time of Evaluation: 12:10 - Subjective Subjective: F/U COPD Exacerbation. Objective - Vital Signs/Intake and Output Vital Signs (last 24 hours): Temp Pulse Resp BP Pulse Ox 97.6 F 110 H 20 145/71 100 10/25/18 12:39 10/25/18 12:39 10/25/18 12:39 10/25/18 12:39 10/25/18 12:39 - Medications Medications: Current Medications Acetaminophen (Tylenol 325mg Tab) 650 mg PO Q4 PRN PRN Reason: Pain, Mild (1-3) Amlodipine Besylate (Norvasc) 10 mg PO DAILY [facility] Last Admin: 10/25/18 10:18 Dose: 10 mg Atorvastatin Calcium (Lipitor) 40 mg PO DAILY [facility] Last Admin: 10/25/18 10:17 Dose: 40 mg Benzonatate (Tessalon Perles) 100 mg PO Q8 PRN PRN Reason: Cough Last Admin: 10/25/18 11:22 Dose: 100 mg Cyclobenzaprine HCl (Flexeril) 5 mg PO TID [facility] Last Admin: 10/25/18 12:06 Dose: 5 mg Docusate Sodium (Colace) 100 mg PO BID [facility] Last Admin: 10/25/18 10:15 Dose: 100 mg Ezetimibe (Zetia) 10 mg PO DAILY [facility] Last Admin: 10/25/18 10:20 Dose: 10 mg Enoxaparin Sodium (Lovenox) 30 mg SC DAILY [facility]; Protocol Last Admin: 10/25/18 10:17 Dose: 30 mg Ergocalciferol (Drisdol 50,000 Intl Units Cap) 50,000 cap PO QWK [facility] Meropenem 1 gm/ Sodium (Chloride) 100 mls @ 100 mls/hr IVPB Q8 [facility]; Protocol Last Admin: 10/25/18 13:14 Dose: 100 mls/hr Vancomycin HCl 1 gm/ Sodium (Chloride) 250 mls @ 166.667 mls/hr IVPB DAILY [facility]; Protocol Last Admin: 10/25/18 12:59 Dose: Not Given Insulin Detemir (Levemir) 30 units SC HS [facility] Last Admin: 10/24/18 22:31 Dose: 30 units Insulin Human Lispro (Humalog) 18 units SC AC [facility] Last Admin: 10/25/18 12:08 Dose: 18 units Insulin Human Regular (Humulin R) 0 units SC ACHS [facility]; Protocol Last Admin: 10/25/18 12:09 Dose: 12 unit Levalbuterol HCl (Xopenex) 1.25 mg INH RQ8 [facility] Last Admin: 10/25/18 07:51 Dose: 1.25 mg Methylprednisolone (Solu-Medrol) 80 mg IV Q8 [facility] Last Admin: 10/25/18 10:22 Dose: 80 mg Montelukast Sodium (Singulair) 10 mg PO DAILY [facility] Last Admin: 10/25/18 11:23 Dose: 10 mg Ondansetron HCl (Zofran Odt) 4 mg PO Q8H PRN PRN Reason: Nausea/Vomiting Oxycodone/Acetaminophen (Percocet 5/325 Mg Tab) 1 tab PO Q6 PRN PRN Reason: Pain, severe (8-10) Stop: 10/27/18 05:27 Pantoprazole Sodium (Protonix Ec Tab) 40 mg PO DAILY [facility] Last Admin: 10/25/18 10:25 Dose: 40 mg Promethazine HCl/Codeine (Phenergan/Codeine Oral Syrup) 10 ml PO Q6 [facility] Last Admin: 10/25/18 11:27 Dose: 10 ml Silver Sulfadiazine (Silvadene 1% 20 Gm) 1 ea TOP DAILY [facility] Last Admin: 10/25/18 10:24 Dose: 1 unit Temazepam (Restoril) 30 mg PO DAILY [facility] Last Admin: 10/25/18 11:22 Dose: 30 mg - Labs Labs: 10/25/18 05:45 10/23/18 21:27 - Constitutional Appears: No Acute Distress - Head Exam Head Exam: NORMAL INSPECTION - Eye Exam Eye Exam: PERRL - ENT Exam ENT Exam: Normal Exam - Neck Exam Neck Exam: Normal Inspection - Respiratory Exam Respiratory Exam: Decreased Breath Sounds (at bases) - Cardiovascular Exam Cardiovascular Exam: Tachycardia, Murmur - GI/Abdominal Exam GI & Abdominal Exam: Soft, Normal Bowel Sounds - Extremities Exam Additional comments: R great toe wound closed, trace edema R leg, PICC line upper R arm - Back Exam Back Exam: NORMAL INSPECTION, tenderness (mild) - Neurological Exam Neurological Exam: Alert, Oriented x3 Additional comments: Decreased sensation R-L legs and feet, no focal motor deficit. - Psychiatric Exam Psychiatric exam: Anxious, Depressed - Skin Skin Exam: Warm Assessment and Plan (1) COPD exacerbation Status: Acute (2) Chronic cough Status: Acute (3) Hyperglycemia due to type 2 diabetes mellitus Status: Acute (4) Foot ulcer, right Status: Chronic (5) Diabetic neuropathy Status: Chronic (6) HTN (hypertension) Status: Chronic (7) PVD (peripheral vascular disease) Status: Chronic (8) Anxiety and depression Status: Chronic
[2018-10-25 16:33] LABS: CALCIUM 9.5 mg/dL (8.4-10.2)
--- NOTE | 2018-10-25 17:34 | CP.PCM.PN ---
Subjective - Date & Time of Evaluation Date of Evaluation: 10/25/18 Time of Evaluation: 21:48 - Subjective Subjective: Curt Blanco DO PGY1 - Internal Medicine Warm In Worker - Cardiology Note for Dr. Zavala Patient was seen and examined at bedside this evening; NO acute events reported overnight; patient denies chest pain, palpitations; reports SOB is stable still c/o wheezing Objective - Vital Signs/Intake and Output Vital Signs (last 24 hours): Temp Pulse Resp BP Pulse Ox 97.4 F L 106 H 20 131/67 96 10/25/18 15:43 10/25/18 15:43 10/25/18 15:43 10/25/18 15:43 10/25/18 15:43 - Medications Medications: Current Medications Acetaminophen (Tylenol 325mg Tab) 650 mg PO Q4 PRN PRN Reason: Pain, Mild (1-3) Amlodipine Besylate (Norvasc) 10 mg PO DAILY [facility] Last Admin: 10/25/18 10:18 Dose: 10 mg Atorvastatin Calcium (Lipitor) 40 mg PO DAILY [facility] Last Admin: 10/25/18 10:17 Dose: 40 mg Benzonatate (Tessalon Perles) 100 mg PO Q8 PRN PRN Reason: Cough Last Admin: 10/25/18 11:22 Dose: 100 mg Cyclobenzaprine HCl (Flexeril) 5 mg PO TID [facility] Last Admin: 10/25/18 12:06 Dose: 5 mg Docusate Sodium (Colace) 100 mg PO BID [facility] Last Admin: 10/25/18 10:15 Dose: 100 mg Ezetimibe (Zetia) 10 mg PO DAILY [facility] Last Admin: 10/25/18 10:20 Dose: 10 mg Enoxaparin Sodium (Lovenox) 30 mg SC DAILY [facility]; Protocol Last Admin: 10/25/18 10:17 Dose: 30 mg Ergocalciferol (Drisdol 50,000 Intl Units Cap) 50,000 cap PO QWK [facility] Meropenem 1 gm/ Sodium (Chloride) 100 mls @ 100 mls/hr IVPB Q8 [facility]; Protocol Last Admin: 10/25/18 13:14 Dose: 100 mls/hr Vancomycin HCl 1 gm/ Sodium (Chloride) 250 mls @ 166.667 mls/hr IVPB DAILY [facility]; Protocol Last Admin: 10/25/18 12:59 Dose: Not Given Insulin Detemir (Levemir) 30 units SC HS [facility] Last Admin: 10/24/18 22:31 Dose: 30 units Insulin Human Lispro (Humalog) 18 units SC AC [facility] Last Admin: 10/25/18 12:08 Dose: 18 units Insulin Human Regular (Humulin R) 0 units SC ACHS [facility]; Protocol Last Admin: 10/25/18 12:09 Dose: 12 unit Levalbuterol HCl (Xopenex) 1.25 mg INH RQ8 [facility] Last Admin: 10/25/18 15:20 Dose: 1.25 mg Methylprednisolone (Solu-Medrol) 80 mg IV Q8 [facility] Last Admin: 10/25/18 10:22 Dose: 80 mg Montelukast Sodium (Singulair) 10 mg PO DAILY [facility] Last Admin: 10/25/18 11:23 Dose: 10 mg Ondansetron HCl (Zofran Odt) 4 mg PO Q8H PRN PRN Reason: Nausea/Vomiting Oxycodone/Acetaminophen (Percocet 5/325 Mg Tab) 1 tab PO Q6 PRN PRN Reason: Pain, severe (8-10) Stop: 10/27/18 05:27 Pantoprazole Sodium (Protonix Ec Tab) 40 mg PO DAILY [facility] Last Admin: 10/25/18 10:25 Dose: 40 mg Promethazine HCl/Codeine (Phenergan/Codeine Oral Syrup) 10 ml PO Q6 [facility] Last Admin: 10/25/18 11:27 Dose: 10 ml Silver Sulfadiazine (Silvadene 1% 20 Gm) 1 ea TOP DAILY [facility] Last Admin: 10/25/18 10:24 Dose: 1 unit Temazepam (Restoril) 30 mg PO DAILY [facility] Last Admin: 10/25/18 11:22 Dose: 30 mg - Labs Labs: 10/25/18 05:45 10/25/18 15:48 - Constitutional Appears: Well, Non-toxic, No Acute Distress - Head Exam Head Exam: ATRAUMATIC, NORMOCEPHALIC - Eye Exam Eye Exam: EOMI, Normal appearance, PERRL - Respiratory Exam Respiratory Exam: Prolonged Expiratory Phase, Wheezes - Cardiovascular Exam Cardiovascular Exam: RRR, +S1, +S2 - GI/Abdominal Exam GI & Abdominal Exam: Soft. absent: Tenderness - Extremities Exam Additional comments: RLE w/ 1+ pitting edema LLE w/o edema Distal pulses intact bilaterally - Neurological Exam Neurological Exam: Alert, Awake - Psychiatric Exam Psychiatric exam: Normal Affect, Normal Mood - Skin Skin Exam: Dry, Normal Color, Warm Assessment and Plan (1) Chronic cough Status: Acute (2) COPD (chronic obstructive pulmonary disease) Status: Chronic (3) Foot ulcer, right Status: Chronic (4) HTN (hypertension) Status: Chronic (5) PVD (peripheral vascular disease) Status: Chronic (6) SOB (shortness of breath) Status: Acute - Assessment and Plan (Free Text) Plan: VQ Scan normal today Lower extremity exam shows RLE w/ greater edema than LLE Will obtain DDimer and follow up w/ RLE Duplex if DDIMer + Etiology of SOB less likely cardiogenic Cont ASA Plavix Lipitor Zetia Given RLE edema can consider switching from Norvasc to ARB for further HTN control
--- NOTE | 2018-10-25 17:48 | NM ---
Date of service: 10/25/2018 COMPARISON: October 25, 2018 two view chest for comparison purposes TECHNIQUE: 35.7 mCi technetium 99-m DTPA aerosol. 5.0 mCI technetium 99-m MAA administered intravenously. FINDINGS: VENTILATION COMPONENT: Heterogeneous ventilation. Retention of radionuclide in the tracheobronchial tree and ingestion of radionuclide in the stomach, incidental findings PERFUSION COMPONENT: Heterogeneous distribution of radionuclide. No geographic, segmental, lobar abnormalities apparent on the present examination. IMPRESSION: Low probability ventilation perfusion scan for pulmonary embolism.
[2018-10-25] MEDS: Insulin Detemir 100 Units/ml Inj SC SCH (22:25)
[2018-10-26] MEDS: Meropenem 500 MG in Sodium Chloride 0.9% 100 ML IVPB SCH ×3 (00:41→17:48)
[2018-10-26] MEDS: Promethazine/Cod 6.25mg-10mg/5ml Syr UD PO SCH ×4 (04:40→21:43)
[2018-10-26 05:32] LABS: EOS % 0.1 % (0.0-4.0); HEMOGLOBIN 9.3 g/dL (12.0-16.0); LYMPH % 5.8 % (20.0-40.0); MEAN CELL VOLUME 84.4 fl (81.0-99.0); MEAN CORPUSCULAR HEMOGLOBIN 27.9 pg (27.0-31.0); MEAN CORPUSCULAR HGB CONC 33.1 g/dL (33.0-37.0); MEAN PLATELET VOLUME 9.7 fl (7.2-11.7); MONO # 0.4 K/uL (0.0-0.8); MONO % 2.2 % (0.0-10.0); NEUT # 15.2 K/uL (1.8-7.0); NEUT % 91.9 % (50.0-75.0); NRBC % 0.1 % (0.0-0.0); PLATELET COUNT 268 K/uL (130-400); RBC 3.32 Mil/uL (3.80-5.20); RED CELL DISTRIBUTION WIDTH 14.2 % (11.5-14.5); WHITE BLOOD COUNT 16.5 K/uL (4.8-10.8)
[2018-10-26 05:45] LABS: ALB/GLOB RATIO 1.1 (1.0-2.1); ALBUMIN 3.7 g/dL (3.5-5.0); CALCIUM 9.5 mg/dL (8.4-10.2)
[2018-10-26 05:58] LABS: T4 6.23 ug/dl (5.5-11.0)
[2018-10-26] MEDS: Insulin Regular 100 units/ml SC SCH ×4 (06:56→21:44)
[2018-10-26] MEDS: Levalbuterol 1.25 MG/3 ML Inhal Soln UD INH SCH ×3 (07:12→23:33)
--- NOTE | 2018-10-26 08:24 | RAD ---
Date of service: 10/25/2018 HISTORY: sob COMPARISON: Portable chest 10/14/2018. TECHNIQUE: Chest PA and lateral FINDINGS: LUNGS: Right PICC insertion unchanged in position. Improved inspiratory volume appreciated. No interval airspace disease appreciated bilaterally. PLEURA: No significant pleural effusion identified. No pneumothorax apparent. CARDIOVASCULAR: Calcific atherosclerotic changes are seen related to the thoracic aorta. Cardiac size appears stable. Mild pulmonary vascular congestion appreciated. OSSEOUS STRUCTURES: No significant abnormalities. VISUALIZED UPPER ABDOMEN: Normal. OTHER FINDINGS: None. IMPRESSION: Mild pulmonary vascular congestion appreciated with stable right PICC. No acute airspace disease or pleural effusions identified at this time.
[2018-10-26 09:12] LABS: ANISOCYTOSIS SLIGHT; BANDS 1 % (0-2); HYPOCHROMIC SLIGHT; LYMPHOCYTE 10 % (20-50); MONOCYTE 3 % (0-10); NEUTROPHIL 86 % (42-75); PLATELET ESTIMATE NORMAL (NORMAL); TOTAL CELLS COUNTED 100
[2018-10-26] MEDS: Insulin Lispro (humaLOG) 100 Units/ml Inj SC SCH ×3 (09:37→17:50)
[2018-10-26] MEDS: Enoxaparin 30 mg Syringe SC SCH (09:39)
[2018-10-26] MEDS: Pantoprazole 40 mg EC Tab PO SCH (09:41)
[2018-10-26] MEDS: Silver Sulfadiazine 1% Cream (20 gm) TOP SCH (09:43)
--- NOTE | 2018-10-26 10:37 | CP.PCM.PN ---
Subjective - Date & Time of Evaluation Date of Evaluation: 10/26/18 Time of Evaluation: 10:37 - Subjective Subjective: ID note- Patient seen and examined today. Patient feels better. less cough and less sob. afebrile. Objective - Vital Signs/Intake and Output Vital Signs (last 24 hours): Temp Pulse Resp BP Pulse Ox 98 F 98 H 20 157/79 H 96 10/26/18 08:48 10/26/18 09:41 10/26/18 08:48 10/26/18 09:41 10/26/18 08:48 - Medications Medications: Current Medications Acetaminophen (Tylenol 325mg Tab) 650 mg PO Q4 PRN PRN Reason: Pain, Mild (1-3) Amlodipine Besylate (Norvasc) 10 mg PO DAILY [facility] Last Admin: 10/26/18 09:41 Dose: 10 mg Atorvastatin Calcium (Lipitor) 40 mg PO DAILY [facility] Last Admin: 10/26/18 09:39 Dose: 40 mg Benzonatate (Tessalon Perles) 100 mg PO Q8 PRN PRN Reason: Cough Last Admin: 10/26/18 09:51 Dose: 100 mg Cyclobenzaprine HCl (Flexeril) 5 mg PO TID [facility] Last Admin: 10/26/18 09:36 Dose: 5 mg Docusate Sodium (Colace) 100 mg PO BID [facility] Last Admin: 10/26/18 09:35 Dose: Not Given Ezetimibe (Zetia) 10 mg PO DAILY [facility] Last Admin: 10/26/18 09:46 Dose: 10 mg Enoxaparin Sodium (Lovenox) 30 mg SC DAILY [facility]; Protocol Last Admin: 10/26/18 09:39 Dose: 30 mg Ergocalciferol (Drisdol 50,000 Intl Units Cap) 50,000 cap PO QWK [facility] Meropenem 500 mg/ Sodium (Chloride) 100 mls @ 100 mls/hr IVPB Q8 [facility]; Protocol Last Admin: 10/26/18 09:52 Dose: 100 mls/hr Vancomycin HCl 750 mg/ Sodium (Chloride) 250 mls @ 166.667 mls/hr IVPB DAILY [facility]; Protocol Last Admin: 10/26/18 09:53 Dose: 166.667 mls/hr Insulin Detemir (Levemir) 30 units SC [facility] Last Admin: 10/25/18 22:25 Dose: 30 units Insulin Human Lispro (Humalog) 18 units SC AC [facility] Last Admin: 10/26/18 09:37 Dose: 18 units Insulin Human Regular (Humulin R) 0 units SC ACHS [facility]; Protocol Last Admin: 10/26/18 06:56 Dose: 8 unit Levalbuterol HCl (Xopenex) 1.25 mg INH RQ8 [facility] Last Admin: 10/26/18 07:12 Dose: 1.25 mg Methylprednisolone (Solu-Medrol) 80 mg IV Q8 [facility] Last Admin: 10/26/18 09:45 Dose: 80 mg Montelukast Sodium (Singulair) 10 mg PO DAILY [facility] Last Admin: 10/26/18 09:44 Dose: 10 mg Ondansetron HCl (Zofran Odt) 4 mg PO Q8H PRN PRN Reason: Nausea/Vomiting Oxycodone/Acetaminophen (Percocet 5/325 Mg Tab) 1 tab PO Q6 PRN PRN Reason: Pain, severe (8-10) Stop: 10/27/18 05:27 Pantoprazole Sodium (Protonix Ec Tab) 40 mg PO DAILY [facility] Last Admin: 10/26/18 09:41 Dose: 40 mg Promethazine HCl/Codeine (Phenergan/Codeine Oral Syrup) 10 ml PO Q6 [facility] Last Admin: 10/26/18 04:40 Dose: Not Given Silver Sulfadiazine (Silvadene 1% 20 Gm) 1 ea TOP DAILY [facility] Last Admin: 10/26/18 09:43 Dose: 1 unit Temazepam (Restoril) 30 mg PO DAILY [facility] Last Admin: 10/26/18 09:50 Dose: 30 mg - Labs Labs: - Additional Findings Additional findings: - Constitutional Appears: Non-toxic, No Acute Distress - Head Exam Head Exam: ATRAUMATIC - Eye Exam Eye Exam: EOMI, PERRL - ENT Exam ENT Exam: Normal Oropharynx - Neck Exam Neck exam: Positive for: Full Rom - Respiratory Exam Respiratory Exam: NORMAL BREATHING PATTERN Additional comments: no crackles No wheezing - Cardiovascular Exam Cardiovascular Exam: RRR, +S1, +S2 - GI/Abdominal Exam GI & Abdominal Exam: Normal Bowel Sounds, Soft Additional comments: NT, ND - Extremities Exam Additional comments: right great toe distal tip with small round dry ulcer, no discharge, no erythema, no tenderness, no edema Much better than last admission - Neurological Exam Neurological exam: Alert, Oriented x 3 Laboratory Results - last 72 hr 10/23/18 10/23/18 10/23/18 20:52 21:07 21:07 WBC 10.9 H RBC 3.82 Hgb 10.5 L D Hct 32.4 L MCV 84.8 MCH 27.5 MCHC 32.5 L RDW 14.2 Plt Count 333 MPV 9.2 Neut % (Auto) 58.7 Lymph % (Auto) 19.[address] [place] % (Auto) 11.2 H Eos % (Auto) 10.3 H Baso % (Auto) 0.7 Neut # (Auto) 6.4 Lymph # (Auto) 2.1 [place] # (Auto) 1.2 H Eos # (Auto) 1.1 H Baso # (Auto) 0.1 Neutrophils % (Manual) Band Neutrophils % Lymphocytes % (Manual) Monocytes % (Manual) Platelet Estimate Hypochromasia (manual) Anisocytosis (manual) ESR D-Dimer, Quantitative pO2 28 L VBG pH 7.38 VBG pCO2 52 VBG HCO3 27.7 VBG Total CO2 32.4 H VBG O2 Sat (Calc) 53.0 VBG Base Excess 4.8 H VBG Potassium 5.0 Sodium 136.0 Chloride 102.0 Glucose 401 H* D Lactate 2.0 FiO2 21.0 Blood Gas Comments Vbg Crit Value Called To Wolfgang salazar r.n. Crit Value Called By Chiquita Crit Value Read Back Y Blood Gas Notified Time 2113 Potassium Carbon Dioxide Anion Gap BUN Creatinine Est GFR ( Amer) Est GFR (Non-Af Amer) POC Glucose (mg/dL) Random Glucose Hemoglobin A1c Calcium Phosphorus Magnesium Total Bilirubin AST ALT Alkaline Phosphatase Troponin I NT-Pro-B Natriuret Pep Total Protein Albumin Globulin Albumin/Globulin Ratio Triglycerides Cholesterol LDL Cholesterol Direct HDL Cholesterol Thyroxine (T4) TSH 3rd Generation Venous Blood Potassium 5.0 Vancomycin Trough Influenza Typ A,B (EIA) Negative for flu a/b 10/23/18 10/24/18 10/24/18 21:27 01:15 05:31 WBC RBC Hgb Hct MCV MCH MCHC RDW Plt Count MPV Neut % (Auto) Lymph % (Auto) [place] % (Auto) Eos % (Auto) Baso % (Auto) Neut # (Auto) Lymph # (Auto) [place] # (Auto) Eos # (Auto) Baso # (Auto) Neutrophils % (Manual) Band Neutrophils % Lymphocytes % (Manual) Monocytes % (Manual) Platelet Estimate Hypochromasia (manual) Anisocytosis (manual) ESR D-Dimer, Quantitative pO2 VBG pH VBG pCO2 VBG HCO3 VBG Total CO2 VBG O2 Sat (Calc) VBG Base Excess VBG Potassium Sodium 137 Chloride 95 L Glucose Lactate FiO2 Blood Gas Comments Crit Value Called To Crit Value Called By Crit Value Read Back Blood Gas Notified Time Potassium 4.8 Carbon Dioxide 28 Anion Gap 19 BUN 30 H Creatinine 1.4 H Est GFR ( Amer) 44 Est GFR (Non-Af Amer) 36 POC Glucose (mg/dL) 409 H* > 500 H* Random Glucose 399 H Hemoglobin A1c Calcium 10.1 Phosphorus Magnesium Total Bilirubin 0.2 AST 29 ALT 34 Alkaline Phosphatase 124 Troponin I < 0.0120 NT-Pro-B Natriuret Pep 54.2 Total Protein 8.0 Albumin 4.2 Globulin 3.8 Albumin/Globulin Ratio 1.1 Triglycerides Cholesterol LDL Cholesterol Direct HDL Cholesterol Thyroxine (T4) TSH 3rd Generation Venous Blood Potassium Vancomycin Trough Influenza Typ A,B (EIA) 10/24/18 10/24/18 10/24/18 10:44 10:50 14:18 WBC RBC Hgb Hct MCV MCH MCHC RDW Plt Count MPV Neut % (Auto) Lymph % (Auto) [place] % (Auto) Eos % (Auto) Baso % (Auto) Neut # (Auto) Lymph # (Auto) [place] # (Auto) Eos # (Auto) Baso # (Auto) Neutrophils % (Manual) Band Neutrophils % Lymphocytes % (Manual) Monocytes % (Manual) Platelet Estimate Hypochromasia (manual) Anisocytosis (manual) ESR 72 H D-Dimer, Quantitative pO2 VBG pH VBG pCO2 VBG HCO3 VBG Total CO2 VBG O2 Sat (Calc) VBG Base Excess VBG Potassium Sodium Chloride Glucose Lactate FiO2 Blood Gas Comments Crit Value Called To Crit Value Called By Crit Value Read Back Blood Gas Notified Time Potassium Carbon Dioxide Anion Gap BUN Creatinine Est GFR ( Amer) Est GFR (Non-Af Amer) POC Glucose (mg/dL) 367 H Random Glucose Hemoglobin A1c Calcium Phosphorus Magnesium Total Bilirubin AST ALT Alkaline Phosphatase Troponin I NT-Pro-B Natriuret Pep Total Protein Albumin Globulin Albumin/Globulin Ratio Triglycerides Cholesterol LDL Cholesterol Direct HDL Cholesterol Thyroxine (T4) TSH 3rd Generation Venous Blood Potassium Vancomycin Trough 12.6 H Influenza Typ A,B (EIA) 10/24/18 10/24/18 10/25/18 16:34 22:27 05:45 WBC 15.0 H RBC 3.28 L Hgb 9.1 L Hct 27.6 L MCV 84.0 MCH 27.7 MCHC 33.0 RDW 14.1 Plt Count 304 MPV 9.3 Neut % (Auto) 89.0 H Lymph % (Auto) 8.[address] [place] % (Auto) 2.6 Eos % (Auto) 0.0 Baso % (Auto) 0.2 Neut # (Auto) 13.3 H Lymph # (Auto) 1.2 [place] # (Auto) 0.4 Eos # (Auto) 0.0 Baso # (Auto) 0.0 Neutrophils % (Manual) 80 H Band Neutrophils % 2 Lymphocytes % (Manual) 11 L Monocytes % (Manual) 7 Platelet Estimate Normal Hypochromasia (manual) Slight Anisocytosis (manual) ESR D-Dimer, Quantitative pO2 VBG pH VBG pCO2 VBG HCO3 VBG Total CO2 VBG O2 Sat (Calc) VBG Base Excess VBG Potassium Sodium Chloride Glucose Lactate FiO2 Blood Gas Comments Crit Value Called To Crit Value Called By Crit Value Read Back Blood Gas Notified Time Potassium Carbon Dioxide Anion Gap BUN Creatinine Est GFR ( Amer) Est GFR (Non-Af Amer) POC Glucose (mg/dL) 495 H* 379 H Random Glucose Hemoglobin A1c Calcium Phosphorus Magnesium Total Bilirubin AST ALT Alkaline Phosphatase Troponin I NT-Pro-B Natriuret Pep Total Protein Albumin Globulin Albumin/Globulin Ratio Triglycerides Cholesterol LDL Cholesterol Direct HDL Cholesterol Thyroxine (T4) TSH 3rd Generation Venous Blood Potassium Vancomycin Trough Influenza Typ A,B (EIA) 10/25/18 10/25/18 10/25/18 05:47 10:53 11:52 WBC RBC Hgb Hct MCV MCH MCHC RDW Plt Count MPV Neut % (Auto) Lymph % (Auto) [place] % (Auto) Eos % (Auto) Baso % (Auto) Neut # (Auto) Lymph # (Auto) [place] # (Auto) Eos # (Auto) Baso # (Auto) Neutrophils % (Manual) Band Neutrophils % Lymphocytes % (Manual) Monocytes % (Manual) Platelet Estimate Hypochromasia (manual) Anisocytosis (manual) ESR D-Dimer, Quantitative pO2 VBG pH VBG pCO2 VBG HCO3 VBG Total CO2 VBG O2 Sat (Calc) VBG Base Excess VBG Potassium Sodium Chloride Glucose Lactate FiO2 Blood Gas Comments Crit Value Called To Crit Value Called By Crit Value Read Back Blood Gas Notified Time Potassium Carbon Dioxide Anion Gap BUN Creatinine Est GFR ( Amer) Est GFR (Non-Af Amer) POC Glucose (mg/dL) 357 H 500 H* > 500 H* Random Glucose Hemoglobin A1c Calcium Phosphorus Magnesium Total Bilirubin AST ALT Alkaline Phosphatase Troponin I NT-Pro-B Natriuret Pep Total Protein Albumin Globulin Albumin/Globulin Ratio Triglycerides Cholesterol LDL Cholesterol Direct HDL Cholesterol Thyroxine (T4) TSH 3rd Generation Venous Blood Potassium Vancomycin Trough Influenza Typ A,B (EIA) 10/25/18 10/25/18 10/25/18 13:39 15:48 17:51 WBC RBC Hgb Hct MCV MCH MCHC RDW Plt Count MPV Neut % (Auto) Lymph % (Auto) [place] % (Auto) Eos % (Auto) Baso % (Auto) Neut # (Auto) Lymph # (Auto) [place] # (Auto) Eos # (Auto) Baso # (Auto) Neutrophils % (Manual) Band Neutrophils % Lymphocytes % (Manual) Monocytes % (Manual) Platelet Estimate Hypochromasia (manual) Anisocytosis (manual) ESR D-Dimer, Quantitative pO2 VBG pH VBG pCO2 VBG HCO3 VBG Total CO2 VBG O2 Sat (Calc) VBG Base Excess VBG Potassium Sodium 135 Chloride 96 L Glucose Lactate FiO2 Blood Gas Comments Crit Value Called To Crit Value Called By Crit Value Read Back Blood Gas Notified Time Potassium 4.7 Carbon Dioxide 25 Anion Gap 19 BUN 42 H Creatinine 1.5 H Est GFR ( Amer) 41 Est GFR (Non-Af Amer) 34 POC Glucose (mg/dL) 407 H* 275 H Random Glucose 321 H Hemoglobin A1c Calcium 9.5 Phosphorus Magnesium Total Bilirubin AST ALT Alkaline Phosphatase Troponin I NT-Pro-B Natriuret Pep Total Protein Albumin Globulin Albumin/Globulin Ratio Triglycerides Cholesterol LDL Cholesterol Direct HDL Cholesterol Thyroxine (T4) TSH 3rd Generation Venous Blood Potassium Vancomycin Trough Influenza Typ A,B (EIA) 10/25/18 10/26/18 10/26/18 21:52 04:45 04:45 WBC 16.5 H RBC 3.32 L Hgb 9.3 L Hct 28.0 L MCV 84.4 MCH 27.9 MCHC 33.1 RDW 14.2 Plt Count 268 MPV 9.7 Neut % (Auto) 91.9 H Lymph % (Auto) 5.[address] [place] % (Auto) 2.2 Eos % (Auto) 0.1 Baso % (Auto) 0.0 Neut # (Auto) 15.2 H Lymph # (Auto) 1.0 [place] # (Auto) 0.4 Eos # (Auto) 0.0 Baso # (Auto) 0.0 Neutrophils % (Manual) 86 H Band Neutrophils % 1 Lymphocytes % (Manual) 10 L Monocytes % (Manual) 3 Platelet Estimate Normal Hypochromasia (manual) Slight Anisocytosis (manual) Slight ESR D-Dimer, Quantitative pO2 VBG pH VBG pCO2 VBG HCO3 VBG Total CO2 VBG O2 Sat (Calc) VBG Base Excess VBG Potassium Sodium 138 Chloride 100 Glucose Lactate FiO2 Blood Gas Comments Crit Value Called To Crit Value Called By Crit Value Read Back Blood Gas Notified Time Potassium 4.8 Carbon Dioxide 26 Anion Gap 17 BUN 41 H Creatinine 1.3 H Est GFR ( Amer) 48 Est GFR (Non-Af Amer) 40 POC Glucose (mg/dL) 262 H Random Glucose 325 H Hemoglobin A1c Calcium 9.5 Phosphorus 3.4 Magnesium 2.3 Total Bilirubin 0.2 AST 18 ALT 31 Alkaline Phosphatase 89 Troponin I NT-Pro-B Natriuret Pep Total Protein 7.2 Albumin 3.7 Globulin 3.5 Albumin/Globulin Ratio 1.1 Triglycerides 128 D Cholesterol 139 LDL Cholesterol Direct 65 HDL Cholesterol 48 Thyroxine (T4) 6.23 TSH 3rd Generation 0.03 L Venous Blood Potassium Vancomycin Trough Influenza Typ A,B (EIA) 10/26/18 10/26/18 10/26/18 04:45 04:45 05:35 WBC RBC Hgb Hct MCV MCH MCHC RDW Plt Count MPV Neut % (Auto) Lymph % (Auto) [place] % (Auto) Eos % (Auto) Baso % (Auto) Neut # (Auto) Lymph # (Auto) [place] # (Auto) Eos # (Auto) Baso # (Auto) Neutrophils % (Manual) Band Neutrophils % Lymphocytes % (Manual) Monocytes % (Manual) Platelet Estimate Hypochromasia (manual) Anisocytosis (manual) ESR D-Dimer, Quantitative 156 pO2 VBG pH VBG pCO2 VBG HCO3 VBG Total CO2 VBG O2 Sat (Calc) VBG Base Excess VBG Potassium Sodium Chloride Glucose Lactate FiO2 Blood Gas Comments Crit Value Called To Crit Value Called By Crit Value Read Back Blood Gas Notified Time Potassium Carbon Dioxide Anion Gap BUN Creatinine Est GFR ( Amer) Est GFR (Non-Af Amer) POC Glucose (mg/dL) 305 H Random Glucose Hemoglobin A1c 9.0 H Calcium Phosphorus Magnesium Total Bilirubin AST ALT Alkaline Phosphatase Troponin I NT-Pro-B Natriuret Pep Total Protein Albumin Globulin Albumin/Globulin Ratio Triglycerides Cholesterol LDL Cholesterol Direct HDL Cholesterol Thyroxine (T4) TSH 3rd Generation Venous Blood Potassium Vancomycin Trough Influenza Typ A,B (EIA) 10/26/18 11:16 WBC RBC Hgb Hct MCV MCH MCHC RDW Plt Count MPV Neut % (Auto) Lymph % (Auto) [place] % (Auto) Eos % (Auto) Baso % (Auto) Neut # (Auto) Lymph # (Auto) [place] # (Auto) Eos # (Auto) Baso # (Auto) Neutrophils % (Manual) Band Neutrophils % Lymphocytes % (Manual) Monocytes % (Manual) Platelet Estimate Hypochromasia (manual) Anisocytosis (manual) ESR D-Dimer, Quantitative pO2 VBG pH VBG pCO2 VBG HCO3 VBG Total CO2 VBG O2 Sat (Calc) VBG Base Excess VBG Potassium Sodium Chloride Glucose Lactate FiO2 Blood Gas Comments Crit Value Called To Crit Value Called By Crit Value Read Back Blood Gas Notified Time Potassium Carbon Dioxide Anion Gap BUN Creatinine Est GFR ( Amer) Est GFR (Non-Af Amer) POC Glucose (mg/dL) 310 H Random Glucose Hemoglobin A1c Calcium Phosphorus Magnesium Total Bilirubin AST ALT Alkaline Phosphatase Troponin I NT-Pro-B Natriuret Pep Total Protein Albumin Globulin Albumin/Globulin Ratio Triglycerides Cholesterol LDL Cholesterol Direct HDL Cholesterol Thyroxine (T4) TSH 3rd Generation Venous Blood Potassium Vancomycin Trough Influenza Typ A,B (EIA) Microbiology 10/23/18 21:02 Blood Blood Culture - Preliminary NO GROWTH AFTER 48 HOURS 10/24/18 06:42 Blood-Venous Blood Culture - Preliminary NO GROWTH AFTER 48 HOURS 10/23/18 21:31 Blood Blood Culture - Preliminary NO GROWTH AFTER 48 HOURS Assessment and Plan (1) COPD exacerbation Status: Acute (2) Diabetic neuropathy Status: Chronic (3) Chronic foot pain Status: Acute (4) Diabetic foot infection Status: Acute (5) Foot ulcer, right Status: Chronic (6) PVD (peripheral vascular disease) Status: Chronic - Assessment and Plan (Free Text) Assessment: A/P- 78 year old female with DM II, HTN, PVD s/p multiple right leg atherectomy and angioplasty admitted with copd exacerbation and has right great toe ulcer that has been present. afebrile New lukocytosi ( most likely from IV steroids which she is now on). clinically the right toe ulcer looks much improved. dry and no erythema . has remained on meropenem and vacno based on last admission foot ulcer cx for ESBL and corynebacterium. wound cx from last admission- esbl e.coli and corynebacterium blood cx- neg x 3 this admission last admission MRI as per report negative for OM. Plan- advise to continue with above 2 abx ( meropnem and vacno) .keep vanco trough <15. advise to continue these abx for 5 more days. wound care as per podiatry. COPD management as per PMD. monitor wbc with steroid taper .
--- NOTE | 2018-10-26 13:57 | CP.PCM.PN ---
Subjective - Date & Time of Evaluation Date of Evaluation: 10/26/18 Time of Evaluation: 13:00 - Subjective Subjective: cough and chest congestion improved, no C/P Objective - Vital Signs/Intake and Output Vital Signs (last 24 hours): Temp Pulse Resp BP Pulse Ox 98 F 98 H 20 157/79 H 96 10/26/18 08:48 10/26/18 09:41 10/26/18 08:48 10/26/18 09:41 10/26/18 08:48 - Medications Medications: Current Medications Acetaminophen (Tylenol 325mg Tab) 650 mg PO Q4 PRN PRN Reason: Pain, Mild (1-3) Amlodipine Besylate (Norvasc) 10 mg PO DAILY [facility] Last Admin: 10/26/18 09:41 Dose: 10 mg Atorvastatin Calcium (Lipitor) 40 mg PO DAILY [facility] Last Admin: 10/26/18 09:39 Dose: 40 mg Benzonatate (Tessalon Perles) 100 mg PO Q8 PRN PRN Reason: Cough Last Admin: 10/26/18 09:51 Dose: 100 mg Cyclobenzaprine HCl (Flexeril) 5 mg PO TID [facility] Last Admin: 10/26/18 12:38 Dose: 5 mg Docusate Sodium (Colace) 100 mg PO BID [facility] Last Admin: 10/26/18 09:35 Dose: Not Given Ezetimibe (Zetia) 10 mg PO DAILY [facility] Last Admin: 10/26/18 09:46 Dose: 10 mg Enoxaparin Sodium (Lovenox) 30 mg SC DAILY [facility]; Protocol Last Admin: 10/26/18 09:39 Dose: 30 mg Ergocalciferol (Drisdol 50,000 Intl Units Cap) 50,000 cap PO QWK [facility] Meropenem 500 mg/ Sodium (Chloride) 100 mls @ 100 mls/hr IVPB Q8 [facility]; Protocol Last Admin: 10/26/18 09:52 Dose: 100 mls/hr Vancomycin HCl 750 mg/ Sodium (Chloride) 250 mls @ 166.667 mls/hr IVPB DAILY [facility]; Protocol Last Admin: 10/26/18 09:53 Dose: 166.667 mls/hr Insulin Detemir (Levemir) 30 units SC [facility] Last Admin: 10/25/18 22:25 Dose: 30 units Insulin Human Lispro (Humalog) 18 units SC AC [facility] Last Admin: 10/26/18 12:40 Dose: 18 units Insulin Human Regular (Humulin R) 0 units SC ACHS [facility]; Protocol Last Admin: 10/26/18 12:41 Dose: 8 unit Levalbuterol HCl (Xopenex) 1.25 mg INH RQ8 [facility] Last Admin: 10/26/18 07:12 Dose: 1.25 mg Methylprednisolone (Solu-Medrol) 60 mg IV Q8 [facility] Montelukast Sodium (Singulair) 10 mg PO DAILY [facility] Last Admin: 10/26/18 09:44 Dose: 10 mg Ondansetron HCl (Zofran Odt) 4 mg PO Q8H PRN PRN Reason: Nausea/Vomiting Oxycodone/Acetaminophen (Percocet 5/325 Mg Tab) 1 tab PO Q6 PRN PRN Reason: Pain, severe (8-10) Stop: 10/27/18 05:27 Pantoprazole Sodium (Protonix Ec Tab) 40 mg PO DAILY [facility] Last Admin: 10/26/18 09:41 Dose: 40 mg Promethazine HCl/Codeine (Phenergan/Codeine Oral Syrup) 10 ml PO Q6 [facility] Last Admin: 10/26/18 11:44 Dose: 10 ml Silver Sulfadiazine (Silvadene 1% 20 Gm) 1 ea TOP DAILY [facility] Last Admin: 10/26/18 09:43 Dose: 1 unit Temazepam (Restoril) 30 mg PO DAILY [facility] Last Admin: 10/26/18 09:50 Dose: 30 mg - Labs Labs: 10/26/18 04:45 10/26/18 04:45 - Constitutional Appears: No Acute Distress - Head Exam Head Exam: NORMAL INSPECTION - Eye Exam Eye Exam: PERRL - ENT Exam ENT Exam: Normal Exam - Neck Exam Neck Exam: Normal Inspection - Respiratory Exam Respiratory Exam: Decreased Breath Sounds, Wheezes - Cardiovascular Exam Cardiovascular Exam: REGULAR RHYTHM - GI/Abdominal Exam GI & Abdominal Exam: Soft, Normal Bowel Sounds - Extremities Exam Additional comments: R great toe wound closed , trace edema R leg, PICC line R arm - Back Exam Back Exam: tenderness (mild) - Neurological Exam Neurological Exam: Alert, Oriented x3 Assessment and Plan (1) COPD exacerbation Status: Acute (2) Chronic cough Status: Acute (3) Hyperglycemia due to type 2 diabetes mellitus Status: Acute (4) Foot ulcer, right Status: Chronic (5) Diabetic neuropathy Status: Chronic (6) HTN (hypertension) Status: Chronic (7) PVD (peripheral vascular disease) Status: Chronic (8) Anxiety and depression Status: Chronic - Assessment and Plan (Free Text) Plan: VQ Lung Scan negative, continue Merren, DuoNeb, SoluMedrol, Humalog AC, Levemir, ID and Cardiac f/u appreciated
--- NOTE | 2018-10-26 19:23 | CP.PCM.PN ---
Subjective - Date & Time of Evaluation Date of Evaluation: 10/26/18 Time of Evaluation: 19:20 - Subjective Subjective: Curt Blanco DO PGY1 - Internal Medicine [employer]er - Cardiology Note for Dr. Zavala Patient seen and examined at bedside this morning. No acute events reported overnight, patient does not complain of any chest pain or palpitations. Still h as mild still complains of cough, shortness of breath. Objective - Vital Signs/Intake and Output Vital Signs (last 24 hours): Temp Pulse Resp BP Pulse Ox 98.9 F 99 H 16 127/62 93 L 10/26/18 16:31 10/26/18 16:31 10/26/18 16:31 10/26/18 16:31 10/26/18 16:31 - Medications Medications: Current Medications Acetaminophen (Tylenol 325mg Tab) 650 mg PO Q4 PRN PRN Reason: Pain, Mild (1-3) Amlodipine Besylate (Norvasc) 10 mg PO DAILY [facility] Last Admin: 10/26/18 09:41 Dose: 10 mg Atorvastatin Calcium (Lipitor) 40 mg PO DAILY [facility] Last Admin: 10/26/18 09:39 Dose: 40 mg Benzonatate (Tessalon Perles) 100 mg PO Q8 PRN PRN Reason: Cough Last Admin: 10/26/18 17:49 Dose: 100 mg Cyclobenzaprine HCl (Flexeril) 5 mg PO TID [facility] Last Admin: 10/26/18 17:49 Dose: 5 mg Docusate Sodium (Colace) 100 mg PO BID [facility] Last Admin: 10/26/18 17:38 Dose: Not Given Ezetimibe (Zetia) 10 mg PO DAILY [facility] Last Admin: 10/26/18 09:46 Dose: 10 mg Enoxaparin Sodium (Lovenox) 30 mg SC DAILY [facility]; Protocol Last Admin: 10/26/18 09:39 Dose: 30 mg Ergocalciferol (Drisdol 50,000 Intl Units Cap) 50,000 cap PO QWK [facility] Meropenem 500 mg/ Sodium (Chloride) 100 mls @ 100 mls/hr IVPB Q8 [facility]; Protocol Last Admin: 10/26/18 17:48 Dose: 100 mls/hr Vancomycin HCl 750 mg/ Sodium (Chloride) 250 mls @ 166.667 mls/hr IVPB DAILY [facility]; Protocol Last Admin: 10/26/18 09:53 Dose: 166.667 mls/hr Insulin Detemir (Levemir) 30 units SC HS [facility] Last Admin: 10/25/18 22:25 Dose: 30 units Insulin Human Lispro (Humalog) 18 units SC AC [facility] Last Admin: 10/26/18 17:50 Dose: 18 units Insulin Human Regular (Humulin R) 0 units SC ACHS [facility]; Protocol Last Admin: 10/26/18 17:51 Dose: 6 unit Levalbuterol HCl (Xopenex) 1.25 mg INH RQ8 [facility] Last Admin: 10/26/18 15:22 Dose: 1.25 mg Methylprednisolone (Solu-Medrol) 60 mg IV Q8 [facility] Last Admin: 10/26/18 17:47 Dose: 60 mg Montelukast Sodium (Singulair) 10 mg PO DAILY [facility] Last Admin: 10/26/18 09:44 Dose: 10 mg Ondansetron HCl (Zofran Odt) 4 mg PO Q8H PRN PRN Reason: Nausea/Vomiting Oxycodone/Acetaminophen (Percocet 5/325 Mg Tab) 1 tab PO Q6 PRN PRN Reason: Pain, severe (8-10) Stop: 10/27/18 05:27 Pantoprazole Sodium (Protonix Ec Tab) 40 mg PO DAILY [facility] Last Admin: 10/26/18 09:41 Dose: 40 mg Promethazine HCl/Codeine (Phenergan/Codeine Oral Syrup) 10 ml PO Q6 [facility] Last Admin: 10/26/18 17:48 Dose: 10 ml Silver Sulfadiazine (Silvadene 1% 20 Gm) 1 ea TOP DAILY [facility] Last Admin: 10/26/18 09:43 Dose: 1 unit Temazepam (Restoril) 30 mg PO DAILY [facility] Last Admin: 10/26/18 09:50 Dose: 30 mg - Labs Labs: 10/26/18 04:45 10/26/18 04:45 - Constitutional Appears: Well, Non-toxic, No Acute Distress - Head Exam Head Exam: ATRAUMATIC, NORMOCEPHALIC - Eye Exam Eye Exam: EOMI, Normal appearance, PERRL - Respiratory Exam Respiratory Exam: Prolonged Expiratory Phase, Wheezes - Cardiovascular Exam Cardiovascular Exam: RRR, +S1, +S2 - GI/Abdominal Exam GI & Abdominal Exam: Soft. absent: Tenderness - Extremities Exam Additional comments: RLE w/ 1+ pitting edema LLE w/o edema Distal pulses intact bilaterally - Neurological Exam Neurological Exam: Alert, Awake - Psychiatric Exam Psychiatric exam: Normal Affect, Normal Mood - Skin Skin Exam: Dry, Normal Color, Warm Assessment and Plan (1) Chronic cough Status: Acute (2) COPD (chronic obstructive pulmonary disease) Status: Chronic (3) Foot ulcer, right Status: Chronic (4) HTN (hypertension) Status: Chronic (5) PVD (peripheral vascular disease) Status: Chronic (6) SOB (shortness of breath) Status: Acute - Assessment and Plan (Free Text) Plan: VQ Scan normal today D-Dimer wnl Etiology of SOB less likely cardiogenic Cont ASA Plavix Lipitor Zetia Given RLE edema can consider switching from Norvasc to ARB for further HTN control
[2018-10-26] MEDS: Insulin Detemir 100 Units/ml Inj SC SCH (21:44)
[2018-10-27] MEDS: Meropenem 500 MG in Sodium Chloride 0.9% 100 ML IVPB SCH ×3 (00:04→16:40)
[2018-10-27] MEDS: Promethazine/Cod 6.25mg-10mg/5ml Syr UD PO SCH ×4 (03:16→21:58)
[2018-10-27] MEDS: Levalbuterol 1.25 MG/3 ML Inhal Soln UD INH SCH ×2 (07:37→15:53)
[2018-10-27] MEDS: Insulin Lispro (humaLOG) 100 Units/ml Inj SC SCH ×3 (09:19→17:59)
[2018-10-27] MEDS: Insulin Regular 100 units/ml SC SCH ×4 (09:21→22:00)
[2018-10-27] MEDS: Enoxaparin 30 mg Syringe SC SCH (09:22)
[2018-10-27] MEDS: Pantoprazole 40 mg EC Tab PO SCH (09:24)
[2018-10-27] MEDS: Silver Sulfadiazine 1% Cream (20 gm) TOP SCH (09:25)
--- NOTE | 2018-10-27 17:29 | CP.PCM.PN ---
Subjective - Date & Time of Evaluation Date of Evaluation: 10/27/18 Time of Evaluation: 15:30 - Subjective Subjective: F/U COPD Exacerbation. Dry cough, chest congestion mild improvement, no pain R great toe. Objective - Vital Signs/Intake and Output Vital Signs (last 24 hours): Temp Pulse Resp BP Pulse Ox 97.3 F L 88 20 153/72 H 96 10/27/18 15:57 10/27/18 15:57 10/27/18 15:57 10/27/18 15:57 10/27/18 15:57 - Medications Medications: Current Medications Acetaminophen (Tylenol 325mg Tab) 650 mg PO Q4 PRN PRN Reason: Pain, Mild (1-3) Amlodipine Besylate (Norvasc) 10 mg PO DAILY [facility] Last Admin: 10/27/18 09:24 Dose: 10 mg Atorvastatin Calcium (Lipitor) 40 mg PO DAILY [facility] Last Admin: 10/27/18 09:22 Dose: 40 mg Benzonatate (Tessalon Perles) 100 mg PO Q8 PRN PRN Reason: Cough Last Admin: 10/27/18 09:32 Dose: 100 mg Cyclobenzaprine HCl (Flexeril) 5 mg PO TID [facility] Last Admin: 10/27/18 16:35 Dose: 5 mg Docusate Sodium (Colace) 100 mg PO BID [facility] Last Admin: 10/27/18 16:25 Dose: Not Given Ezetimibe (Zetia) 10 mg PO DAILY [facility] Last Admin: 10/27/18 09:28 Dose: 10 mg Ergocalciferol (Drisdol 50,000 Intl Units Cap) 50,000 cap PO QWK [facility] Meropenem 500 mg/ Sodium (Chloride) 100 mls @ 100 mls/hr IVPB Q8 [facility]; Protocol Last Admin: 10/27/18 16:40 Dose: 100 mls/hr Vancomycin HCl 750 mg/ Sodium (Chloride) 250 mls @ 166.667 mls/hr IVPB DAILY [facility]; Protocol Last Admin: 10/27/18 09:28 Dose: 166.667 mls/hr Insulin Detemir (Levemir) 30 units SC HS [facility] Last Admin: 10/26/18 21:44 Dose: 30 units Insulin Human Lispro (Humalog) 18 units SC AC [facility] Last Admin: 10/27/18 13:46 Dose: 18 units Insulin Human Regular (Humulin R) 0 units SC ACHS [facility]; Protocol Last Admin: 10/27/18 13:47 Dose: 10 unit Levalbuterol HCl (Xopenex) 1.25 mg INH RQ8 [facility] Last Admin: 10/27/18 15:53 Dose: 1.25 mg Methylprednisolone (Solu-Medrol) 60 mg IV Q8 [facility] Last Admin: 10/27/18 16:38 Dose: 60 mg Montelukast Sodium (Singulair) 10 mg PO DAILY [facility] Last Admin: 10/27/18 09:26 Dose: 10 mg Ondansetron HCl (Zofran Odt) 4 mg PO Q8H PRN PRN Reason: Nausea/Vomiting Pantoprazole Sodium (Protonix Ec Tab) 40 mg PO DAILY [facility] Last Admin: 10/27/18 09:24 Dose: 40 mg Promethazine HCl/Codeine (Phenergan/Codeine Oral Syrup) 10 ml PO Q6 [facility] Last Admin: 10/27/18 16:40 Dose: 10 ml Silver Sulfadiazine (Silvadene 1% 20 Gm) 1 ea TOP DAILY [facility] Last Admin: 10/27/18 09:25 Dose: 1 unit Temazepam (Restoril) 30 mg PO DAILY [facility] Last Admin: 10/27/18 09:32 Dose: 30 mg - Labs Labs: 10/26/18 04:45 10/26/18 04:45 - Constitutional Appears: No Acute Distress - Head Exam Head Exam: NORMAL INSPECTION - Eye Exam Eye Exam: PERRL - ENT Exam ENT Exam: Normal Exam - Neck Exam Neck Exam: Normal Inspection - Respiratory Exam Respiratory Exam: Decreased Breath Sounds, Wheezes - Cardiovascular Exam Cardiovascular Exam: REGULAR RHYTHM - GI/Abdominal Exam GI & Abdominal Exam: Soft, Normal Bowel Sounds - Extremities Exam Additional comments: R great toe wound closed, trace edema R leg, PICC line R arm - Back Exam Back Exam: tenderness (mild) - Neurological Exam Neurological Exam: Alert, Oriented x3 - Psychiatric Exam Psychiatric exam: Anxious - Skin Skin Exam: Warm Assessment and Plan (1) COPD exacerbation Status: Acute (2) Chronic cough Status: Acute (3) Hyperglycemia due to type 2 diabetes mellitus Status: Acute (4) Foot ulcer, right Status: Chronic (5) Diabetic neuropathy Status: Chronic (6) HTN (hypertension) Status: Chronic (7) PVD (peripheral vascular disease) Status: Chronic (8) Anxiety and depression Status: Chronic - Assessment and Plan (Free Text) Plan: Continue Madiha hernandez Duoneb, Giovanau-Miller and rest of tx.
[2018-10-27] MEDS: Insulin Detemir 100 Units/ml Inj SC SCH (21:58)
[2018-10-28] MEDS: Levalbuterol 1.25 MG/3 ML Inhal Soln UD INH SCH ×3 (00:09→15:47)
[2018-10-28] MEDS: Meropenem 500 MG in Sodium Chloride 0.9% 100 ML IVPB SCH ×3 (01:10→16:14)
[2018-10-28] MEDS: Promethazine/Cod 6.25mg-10mg/5ml Syr UD PO SCH ×2 (03:03→09:00)
[2018-10-28] MEDS: Pantoprazole 40 mg EC Tab PO SCH (08:33)
[2018-10-28] MEDS: Silver Sulfadiazine 1% Cream (20 gm) TOP SCH (08:33)
[2018-10-28] MEDS: Insulin Regular 100 units/ml SC SCH ×4 (08:37→21:54)
[2018-10-28] MEDS: Insulin Lispro (humaLOG) 100 Units/ml Inj SC SCH ×3 (08:37→16:20)
--- NOTE | 2018-10-28 15:20 | CP.PCM.PN ---
Subjective - Date & Time of Evaluation Date of Evaluation: 10/28/18 Time of Evaluation: 15:00 - Subjective Subjective: F/U COPD Exacerbation. Dry cough, Pt requesting cough medication, continue with chest congestion, no pain R great toe. Objective - Vital Signs/Intake and Output Vital Signs (last 24 hours): Temp Pulse Resp BP Pulse Ox 98.0 F 96 H 18 150/68 97 10/28/18 08:00 10/28/18 08:38 10/28/18 08:00 10/28/18 08:38 10/28/18 08:00 - Medications Medications: Current Medications Acetaminophen (Tylenol 325mg Tab) 650 mg PO Q4 PRN PRN Reason: Pain, Mild (1-3) Amlodipine Besylate (Norvasc) 10 mg PO DAILY [facility] Last Admin: 10/28/18 08:38 Dose: 10 mg Atorvastatin Calcium (Lipitor) 40 mg PO DAILY [facility] Last Admin: 10/28/18 08:38 Dose: 40 mg Benzonatate (Tessalon Perles) 100 mg PO Q8 PRN PRN Reason: Cough Last Admin: 10/27/18 09:32 Dose: 100 mg Cyclobenzaprine HCl (Flexeril) 5 mg PO TID [facility] Last Admin: 10/28/18 08:35 Dose: 5 mg Docusate Sodium (Colace) 100 mg PO BID [facility] Last Admin: 10/28/18 08:35 Dose: 100 mg Ezetimibe (Zetia) 10 mg PO DAILY [facility] Last Admin: 10/28/18 08:35 Dose: 10 mg Ergocalciferol (Drisdol 50,000 Intl Units Cap) 50,000 cap PO QWK [facility] Meropenem 500 mg/ Sodium (Chloride) 100 mls @ 100 mls/hr IVPB Q8 [facility]; Protocol Last Admin: 10/28/18 08:46 Dose: 100 mls/hr Vancomycin HCl 750 mg/ Sodium (Chloride) 250 mls @ 166.667 mls/hr IVPB DAILY [facility]; Protocol Last Admin: 10/28/18 08:43 Dose: 166.667 mls/hr Insulin Detemir (Levemir) 30 units SC HS [facility] Last Admin: 10/27/18 21:58 Dose: 30 units Insulin Human Lispro (Humalog) 18 units SC AC [facility] Last Admin: 10/28/18 12:24 Dose: 18 units Insulin Human Regular (Humulin R) 0 units SC ACHS [facility]; Protocol Last Admin: 10/28/18 12:24 Dose: 4 units Levalbuterol HCl (Xopenex) 1.25 mg INH RQ8 [facility] Last Admin: 10/28/18 07:54 Dose: 1.25 mg Methylprednisolone (Solu-Medrol) 60 mg IV Q8 [facility] Last Admin: 10/28/18 08:34 Dose: 60 mg Montelukast Sodium (Singulair) 10 mg PO DAILY [facility] Last Admin: 10/28/18 08:34 Dose: 10 mg Ondansetron HCl (Zofran Odt) 4 mg PO Q8H PRN PRN Reason: Nausea/Vomiting Pantoprazole Sodium (Protonix Ec Tab) 40 mg PO DAILY [facility] Last Admin: 10/28/18 08:33 Dose: 40 mg Silver Sulfadiazine (Silvadene 1% 20 Gm) 1 ea TOP DAILY [facility] Last Admin: 10/28/18 08:33 Dose: 1 unit Temazepam (Restoril) 30 mg PO DAILY@2200 [facility] - Labs Labs: 10/26/18 04:45 10/26/18 04:45 - Constitutional Appears: No Acute Distress - Head Exam Head Exam: NORMAL INSPECTION - Eye Exam Eye Exam: PERRL - ENT Exam ENT Exam: Normal Exam - Neck Exam Neck Exam: Normal Inspection - Respiratory Exam Respiratory Exam: Decreased Breath Sounds, Wheezes - Cardiovascular Exam Cardiovascular Exam: REGULAR RHYTHM - GI/Abdominal Exam GI & Abdominal Exam: Soft, Normal Bowel Sounds - Extremities Exam Additional comments: R great toe wound closed, PICC line R arm - Back Exam Back Exam: tenderness (mild) - Neurological Exam Neurological Exam: Alert, Oriented x3 - Psychiatric Exam Psychiatric exam: Anxious - Skin Skin Exam: Warm Assessment and Plan (1) COPD exacerbation Status: Acute (2) Chronic cough Status: Acute (3) Hyperglycemia due to type 2 diabetes mellitus Status: Acute (4) Foot ulcer, right Status: Chronic (5) Diabetic neuropathy Status: Chronic (6) HTN (hypertension) Status: Chronic (7) PVD (peripheral vascular disease) Status: Chronic (8) Anxiety and depression Status: Chronic - Assessment and Plan (Free Text) Plan: Continue Merren, Vanco, Duoneb, Solu-Medrol and rest of tx.
[2018-10-28] MEDS: Insulin Detemir 100 Units/ml Inj SC SCH (21:53)
[2018-10-28] MEDS: Promethazine/Cod 6.25mg-10mg/5ml Syr UD PO PRN (21:58)
[2018-10-29] MEDS: Levalbuterol 1.25 MG/3 ML Inhal Soln UD INH SCH ×4 (00:05→23:40)
[2018-10-29] MEDS: Meropenem 500 MG in Sodium Chloride 0.9% 100 ML IVPB SCH ×3 (01:17→17:56)
--- NOTE | 2018-10-29 09:02 | CP.PCM.PN ---
<Curt Blanco - Last Filed: 10/29/18 10:35> Subjective - Date & Time of Evaluation Date of Evaluation: 10/29/18 Time of Evaluation: 09:02 - Subjective Subjective: Curt Blanco DO PGY1 - Internal Medicine Pastoral Assistant - Cardiology Note for Dr. Zavala Patient was seen and evaluated at bedside this morning. Did complain of palpitations today however she has been NSR on telemetry Continues to voice mild complaints of shortness of breath. Objective - Vital Signs/Intake and Output Vital Signs (last 24 hours): Temp Pulse Resp BP Pulse Ox 97.9 F 93 H 18 161/76 H 97 10/29/18 05:00 10/29/18 05:00 10/29/18 05:00 10/29/18 05:00 10/29/18 05:00 - Medications Medications: Current Medications Acetaminophen (Tylenol 325mg Tab) 650 mg PO Q4 PRN PRN Reason: Pain, Mild (1-3) Amlodipine Besylate (Norvasc) 10 mg PO DAILY [facility] Last Admin: 10/28/18 08:38 Dose: 10 mg Atorvastatin Calcium (Lipitor) 40 mg PO DAILY [facility] Last Admin: 10/28/18 08:38 Dose: 40 mg Benzonatate (Tessalon Perles) 100 mg PO Q8 PRN PRN Reason: Cough Last Admin: 10/27/18 09:32 Dose: 100 mg Cyclobenzaprine HCl (Flexeril) 5 mg PO TID [facility] Last Admin: 10/28/18 16:10 Dose: 5 mg Docusate Sodium (Colace) 100 mg PO BID [facility] Last Admin: 10/28/18 16:10 Dose: 100 mg Ezetimibe (Zetia) 10 mg PO DAILY [facility] Last Admin: 10/28/18 08:35 Dose: 10 mg Ergocalciferol (Drisdol 50,000 Intl Units Cap) 50,000 cap PO QWK [facility] Meropenem 500 mg/ Sodium (Chloride) 100 mls @ 100 mls/hr IVPB Q8 [facility]; Protocol Last Admin: 10/29/18 01:17 Dose: 100 mls/hr Vancomycin HCl 750 mg/ Sodium (Chloride) 250 mls @ 166.667 mls/hr IVPB DAILY [facility]; Protocol Last Admin: 10/28/18 08:43 Dose: 166.667 mls/hr Insulin Detemir (Levemir) 30 units SC HS [facility] Last Admin: 10/28/18 21:53 Dose: 30 units Insulin Human Lispro (Humalog) 18 units SC AC [facility] Last Admin: 10/28/18 16:20 Dose: 18 units Insulin Human Regular (Humulin R) 0 units SC ACHS [facility]; Protocol Last Admin: 10/28/18 21:54 Dose: 3 units Levalbuterol HCl (Xopenex) 1.25 mg INH RQ8 [facility] Last Admin: 10/29/18 07:43 Dose: 1.25 mg Methylprednisolone (Solu-Medrol) 60 mg IV Q8 [facility] Last Admin: 10/29/18 01:16 Dose: 60 mg Montelukast Sodium (Singulair) 10 mg PO DAILY [facility] Last Admin: 10/28/18 08:34 Dose: 10 mg Ondansetron HCl (Zofran Odt) 4 mg PO Q8H PRN PRN Reason: Nausea/Vomiting Pantoprazole Sodium (Protonix Ec Tab) 40 mg PO DAILY [facility] Last Admin: 10/28/18 08:33 Dose: 40 mg Promethazine HCl/Codeine (Phenergan/Codeine Oral Syrup) 10 ml PO Q6 PRN PRN Reason: Cough Last Admin: 10/28/18 21:58 Dose: 10 ml Silver Sulfadiazine (Silvadene 1% 20 Gm) 1 ea TOP DAILY [facility] Last Admin: 10/28/18 08:33 Dose: 1 unit Temazepam (Restoril) 30 mg PO DAILY@2200 [facility] Last Admin: 10/28/18 21:54 Dose: 30 mg - Labs Labs: 10/26/18 04:45 10/26/18 04:45 - Constitutional Appears: Well, Non-toxic, No Acute Distress - Head Exam Head Exam: ATRAUMATIC, NORMOCEPHALIC - Eye Exam Eye Exam: EOMI, Normal appearance, PERRL - Respiratory Exam Respiratory Exam: Prolonged Expiratory Phase, Wheezes - Cardiovascular Exam Cardiovascular Exam: RRR, +S1, +S2 - GI/Abdominal Exam GI & Abdominal Exam: Soft. absent: Tenderness - Extremities Exam Additional comments: RLE w/ 1+ pitting edema LLE w/o edema Distal pulses intact bilaterally - Neurological Exam Neurological Exam: Alert, Awake - Psychiatric Exam Psychiatric exam: Normal Affect, Normal Mood - Skin Skin Exam: Dry, Normal Color, Warm Assessment and Plan (1) Chronic cough Status: Acute (2) COPD (chronic obstructive pulmonary disease) Status: Chronic (3) Foot ulcer, right Status: Chronic (4) HTN (hypertension) Status: Chronic (5) PVD (peripheral vascular disease) Status: Chronic (6) SOB (shortness of breath) Status: Acute - Assessment and Plan (Free Text) Plan: SOB less likely cardiogenic in nature; Most likely 2/2 COPD VQ scan + DDimer wnl Less concerning for DVT/PE C/w ASA Plavix Lipitor Zetia Consider Norvasc --> ARB Further reccs per Dr. Zavala <Elijah Zavala - Last Filed: 10/29/18 23:13> Objective - Vital Signs/Intake and Output Vital Signs (last 24 hours): Temp Pulse Resp BP Pulse Ox 97.7 F 101 H 16 168/72 H 95 10/29/18 20:07 10/29/18 20:07 10/29/18 20:07 10/29/18 20:07 10/29/18 20:07 - Medications Medications: Current Medications Acetaminophen (Tylenol 325mg Tab) 650 mg PO Q4 PRN PRN Reason: Pain, Mild (1-3) Amlodipine Besylate (Norvasc) 10 mg PO DAILY [facility] Last Admin: 10/29/18 09:21 Dose: 10 mg Atorvastatin Calcium (Lipitor) 40 mg PO DAILY [facility] Last Admin: 10/29/18 09:21 Dose: 40 mg Benzonatate (Tessalon Perles) 100 mg PO Q8 PRN PRN Reason: Cough Last Admin: 10/29/18 09:25 Dose: 100 mg Cyclobenzaprine HCl (Flexeril) 5 mg PO TID [facility] Last Admin: 10/29/18 17:58 Dose: 5 mg Docusate Sodium (Colace) 100 mg PO BID [facility] Last Admin: 10/29/18 17:51 Dose: Not Given Ezetimibe (Zetia) 10 mg PO DAILY [facility] Last Admin: 10/29/18 09:25 Dose: 10 mg Ergocalciferol (Drisdol 50,000 Intl Units Cap) 50,000 cap PO QWK [facility] Meropenem 500 mg/ Sodium (Chloride) 100 mls @ 100 mls/hr IVPB Q8 [facility]; Protocol Last Admin: 10/29/18 17:56 Dose: 100 mls/hr Vancomycin HCl 750 mg/ Sodium (Chloride) 250 mls @ 166.667 mls/hr IVPB DAILY [facility]; Protocol Last Admin: 10/29/18 09:27 Dose: 166.667 mls/hr Insulin Detemir (Levemir) 30 units SC HS [facility] Last Admin: 10/29/18 21:59 Dose: 30 units Insulin Human Lispro (Humalog) 18 units SC AC [facility] Last Admin: 10/29/18 17:58 Dose: 18 units Insulin Human Regular (Humulin R) 0 units SC ACHS [facility]; Protocol Last Admin: 10/29/18 22:01 Dose: Not Given Levalbuterol HCl (Xopenex) 1.25 mg INH RQ8 [facility] Last Admin: 10/29/18 15:33 Dose: 1.25 mg Methylprednisolone (Solu-Medrol) 30 mg IV Q8 [facility] Last Admin: 10/29/18 17:54 Dose: 30 mg Montelukast Sodium (Singulair) 10 mg PO DAILY [facility] Last Admin: 10/29/18 09:23 Dose: 10 mg Ondansetron HCl (Zofran Odt) 4 mg PO Q8H PRN PRN Reason: Nausea/Vomiting Pantoprazole Sodium (Protonix Ec Tab) 40 mg PO DAILY [facility] Last Admin: 10/29/18 09:22 Dose: 40 mg Promethazine HCl/Codeine (Phenergan/Codeine Oral Syrup) 10 ml PO Q6 PRN PRN Reason: Cough Last Admin: 10/29/18 09:22 Dose: 10 ml Silver Sulfadiazine (Silvadene 1% 20 Gm) 1 ea TOP DAILY [facility] Last Admin: 10/29/18 09:22 Dose: 1 unit Temazepam (Restoril) 30 mg PO DAILY@2200 [facility] Last Admin: 10/29/18 21:56 Dose: 30 mg - Labs Labs: 10/26/18 04:45 10/26/18 04:45 Assessment and Plan (1) SOB (shortness of breath) Status: Acute (2) COPD exacerbation Status: Acute (3) Chronic cough Status: Acute (4) Diabetic neuropathy Status: Chronic (5) Foot ulcer, right Status: Chronic (6) HTN (hypertension) Status: Chronic (7) PVD (peripheral vascular disease) Status: Chronic (8) S/P angioplasty Status: Chronic Attending/Attestation - Attestation I have personally seen and examined this patient.: Yes I have fully participated in the care of the patient.: Yes I have reviewed all pertinent clinical information, including history, physical exam and plan: Yes Notes (Text): 10/29/18 23:12 Cardiac stable cont current meds will sign off now plz reconsult if needed
[2018-10-29] MEDS: Insulin Lispro (humaLOG) 100 Units/ml Inj SC SCH ×3 (09:18→17:58)
[2018-10-29] MEDS: Insulin Regular 100 units/ml SC SCH ×4 (09:20→22:01)
[2018-10-29] MEDS: Silver Sulfadiazine 1% Cream (20 gm) TOP SCH (09:22)
[2018-10-29] MEDS: Promethazine/Cod 6.25mg-10mg/5ml Syr UD PO PRN (09:22)
[2018-10-29] MEDS: Pantoprazole 40 mg EC Tab PO SCH (09:22)
--- NOTE | 2018-10-29 10:19 | CP.PCM.PN ---
Subjective - Date & Time of Evaluation Date of Evaluation: 10/29/18 Time of Evaluation: 10:19 - Subjective Subjective: ID note- Pt. seen and examined today. afebrile. Objective - Vital Signs/Intake and Output Vital Signs (last 24 hours): Temp Pulse Resp BP Pulse Ox 97.6 F 93 H 20 176/71 H 100 10/29/18 09:16 10/29/18 09:21 10/29/18 09:16 10/29/18 09:21 10/29/18 09:16 - Medications Medications: Current Medications Acetaminophen (Tylenol 325mg Tab) 650 mg PO Q4 PRN PRN Reason: Pain, Mild (1-3) Amlodipine Besylate (Norvasc) 10 mg PO DAILY [facility] Last Admin: 10/29/18 09:21 Dose: 10 mg Atorvastatin Calcium (Lipitor) 40 mg PO DAILY [facility] Last Admin: 10/29/18 09:21 Dose: 40 mg Benzonatate (Tessalon Perles) 100 mg PO Q8 PRN PRN Reason: Cough Last Admin: 10/29/18 09:25 Dose: 100 mg Cyclobenzaprine HCl (Flexeril) 5 mg PO TID [facility] Last Admin: 10/29/18 09:18 Dose: 5 mg Docusate Sodium (Colace) 100 mg PO BID [facility] Last Admin: 10/29/18 09:17 Dose: Not Given Ezetimibe (Zetia) 10 mg PO DAILY [facility] Last Admin: 10/29/18 09:25 Dose: 10 mg Ergocalciferol (Drisdol 50,000 Intl Units Cap) 50,000 cap PO QWK [facility] Meropenem 500 mg/ Sodium (Chloride) 100 mls @ 100 mls/hr IVPB Q8 [facility]; Protocol Last Admin: 10/29/18 09:28 Dose: 100 mls/hr Vancomycin HCl 750 mg/ Sodium (Chloride) 250 mls @ 166.667 mls/hr IVPB DAILY [facility]; Protocol Last Admin: 10/29/18 09:27 Dose: 166.667 mls/hr Insulin Detemir (Levemir) 30 units SC HS [facility] Last Admin: 10/28/18 21:53 Dose: 30 units Insulin Human Lispro (Humalog) 18 units SC AC [facility] Last Admin: 10/29/18 09:18 Dose: 18 units Insulin Human Regular (Humulin R) 0 units SC ACHS [facility]; Protocol Last Admin: 10/29/18 09:20 Dose: 4 units Levalbuterol HCl (Xopenex) 1.25 mg INH RQ8 [facility] Last Admin: 10/29/18 07:43 Dose: 1.25 mg Methylprednisolone (Solu-Medrol) 60 mg IV Q8 [facility] Last Admin: 10/29/18 09:23 Dose: 60 mg Montelukast Sodium (Singulair) 10 mg PO DAILY [facility] Last Admin: 10/29/18 09:23 Dose: 10 mg Ondansetron HCl (Zofran Odt) 4 mg PO Q8H PRN PRN Reason: Nausea/Vomiting Pantoprazole Sodium (Protonix Ec Tab) 40 mg PO DAILY [facility] Last Admin: 10/29/18 09:22 Dose: 40 mg Promethazine HCl/Codeine (Phenergan/Codeine Oral Syrup) 10 ml PO Q6 PRN PRN Reason: Cough Last Admin: 10/29/18 09:22 Dose: 10 ml Silver Sulfadiazine (Silvadene 1% 20 Gm) 1 ea TOP DAILY [facility] Last Admin: 10/29/18 09:22 Dose: 1 unit Temazepam (Restoril) 30 mg PO DAILY@2200 [facility] Last Admin: 10/28/18 21:54 Dose: 30 mg - Labs Labs: - Additional Findings Additional findings: - Constitutional Appears: Non-toxic, No Acute Distress - Head Exam Head Exam: ATRAUMATIC - Eye Exam Eye Exam: EOMI, PERRL - ENT Exam ENT Exam: Normal Oropharynx - Neck Exam Neck exam: Positive for: Full Rom - Respiratory Exam Respiratory Exam: NORMAL BREATHING PATTERN Additional comments: no crackles No wheezing - Cardiovascular Exam Cardiovascular Exam: RRR, +S1, +S2 - GI/Abdominal Exam GI & Abdominal Exam: Normal Bowel Sounds, Soft Additional comments: NT, ND - Extremities Exam Additional comments: right great toe distal tip with small round dry ulcer, no discharge, no erythema, no tenderness, no edema Much better than last admission - Neurological Exam Neurological exam: Alert, Oriented x 3 Laboratory Results - last 72 hr 10/26/18 10/26/18 10/27/18 16:56 21:34 06:01 POC Glucose (mg/dL) 254 H 266 H 256 H 10/27/18 10/27/1819 11:09 15:42 21:35 POC Glucose (mg/dL) 383 H 202 H 237 H 10/28/18 10/28/18 10/28/18 05:49 11:19 16:20 POC Glucose (mg/dL) 259 H 233 H 129 H 10/28/18 10/29/18 10/29/18 21:52 05:26 11:04 POC Glucose (mg/dL) 398 H 242 H 335 H Microbiology 10/23/18 21:02 Blood Blood Culture - Final NO GROWTH AFTER 5 DAYS 10/23/18 21:02 Blood Gram Stain - Final TEST NOT PERFORMED 10/24/18 06:42 Blood-Venous Blood Culture - Final NO GROWTH AFTER 5 DAYS 10/24/18 06:42 Blood-Venous Gram Stain - Final TEST NOT PERFORMED 10/23/18 21:31 Blood Blood Culture - Final NO GROWTH AFTER 5 DAYS 10/23/18 21:31 Blood Gram Stain - Final TEST NOT PERFORMED Assessment and Plan (1) COPD exacerbation Status: Acute (2) Diabetic neuropathy Status: Chronic (3) Chronic foot pain Status: Acute (4) Diabetic foot infection Status: Acute (5) Foot ulcer, right Status: Chronic (6) PVD (peripheral vascular disease) Status: Chronic - Assessment and Plan (Free Text) Assessment: A/P- 78 year old female with DM II, HTN, PVD s/p multiple right leg atherectomy and a ngioplasty admitted with copd exacerbation and has right great toe ulcer that has been present. afebrile New lukocytosi ( most likely from IV steroids which she is now on). clinically the right toe ulcer looks much improved. dry and no erythema . has remained on meropenem and vacno based on last admission foot ulcer cx for ESBL and corynebacterium. wound cx from last admission- esbl e.coli and corynebacterium blood cx- neg x 3 this admission last admission MRI as per report negative for OM. Plan- advise to continue with above 2 abx ( meropnem and vacno) .keep vanco trough <15. advise to continue these abx for 2 more days. wound care as per podiatry. COPD management as per PMD. monitor wbc with steroid taper .
[2018-10-29] MEDS: MethylPREDNISolone 40 mg Vial IV SCH ×2 (13:29→17:54)
--- NOTE | 2018-10-29 14:43 | CP.PCM.PN ---
Subjective - Date & Time of Evaluation Date of Evaluation: 10/29/18 Time of Evaluation: 11:40 - Subjective Subjective: F/u COPD Exacerbation Objective - Vital Signs/Intake and Output Vital Signs (last 24 hours): Temp Pulse Resp BP Pulse Ox 97.8 F 109 H 20 164/75 H 97 10/29/18 13:02 10/29/18 13:02 10/29/18 13:02 10/29/18 13:02 10/29/18 13:02 - Medications Medications: Current Medications Acetaminophen (Tylenol 325mg Tab) 650 mg PO Q4 PRN PRN Reason: Pain, Mild (1-3) Amlodipine Besylate (Norvasc) 10 mg PO DAILY [facility] Last Admin: 10/29/18 09:21 Dose: 10 mg Atorvastatin Calcium (Lipitor) 40 mg PO DAILY [facility] Last Admin: 10/29/18 09:21 Dose: 40 mg Benzonatate (Tessalon Perles) 100 mg PO Q8 PRN PRN Reason: Cough Last Admin: 10/29/18 09:25 Dose: 100 mg Cyclobenzaprine HCl (Flexeril) 5 mg PO TID [facility] Last Admin: 10/29/18 13:26 Dose: 5 mg Docusate Sodium (Colace) 100 mg PO BID [facility] Last Admin: 10/29/18 09:17 Dose: Not Given Ezetimibe (Zetia) 10 mg PO DAILY [facility] [place] Last Admin: 10/29/18 09:25 Dose: 10 mg Ergocalciferol (Drisdol 50,000 Intl Units Cap) 50,000 cap PO QWK [facility] Meropenem 500 mg/ Sodium (Chloride) 100 mls @ 100 mls/hr IVPB Q8 [facility]; Protocol Last Admin: 10/29/18 09:28 Dose: 100 mls/hr Vancomycin HCl 750 mg/ Sodium (Chloride) 250 mls @ 166.667 mls/hr IVPB DAILY [facility]; Protocol Last Admin: 10/29/18 09:27 Dose: 166.667 mls/hr Insulin Detemir (Levemir) 30 units SC HS [facility] Last Admin: 10/28/18 21:53 Dose: 30 units Insulin Human Lispro (Humalog) 18 units SC AC [facility] Last Admin: 10/29/18 13:30 Dose: 18 units Insulin Human Regular (Humulin R) 0 units SC ACHS [facility]; Protocol Last Admin: 10/29/18 13:32 Dose: 8 units Levalbuterol HCl (Xopenex) 1.25 mg INH RQ8 [facility] Last Admin: 10/29/18 07:43 Dose: 1.25 mg Methylprednisolone (Solu-Medrol) 30 mg IV Q8 [facility] Last Admin: 10/29/18 13:29 Dose: 30 mg Montelukast Sodium (Singulair) 10 mg PO DAILY [facility] Last Admin: 10/29/18 09:23 Dose: 10 mg Ondansetron HCl (Zofran Odt) 4 mg PO Q8H PRN PRN Reason: Nausea/Vomiting Pantoprazole Sodium (Protonix Ec Tab) 40 mg PO DAILY [facility] Last Admin: 10/29/18 09:22 Dose: 40 mg Promethazine HCl/Codeine (Phenergan/Codeine Oral Syrup) 10 ml PO Q6 PRN PRN Reason: Cough Last Admin: 10/29/18 09:22 Dose: 10 ml Silver Sulfadiazine (Silvadene 1% 20 Gm) 1 ea TOP DAILY [facility] Last Admin: 10/29/18 09:22 Dose: 1 unit Temazepam (Restoril) 30 mg PO DAILY@2200 [facility] Last Admin: 10/28/18 21:54 Dose: 30 mg - Labs Labs: 10/26/18 04:45 10/26/18 04:45 - Constitutional Appears: No Acute Distress - Head Exam Head Exam: NORMAL INSPECTION - Eye Exam Eye Exam: PERRL - ENT Exam ENT Exam: Normal Exam - Neck Exam Neck Exam: Normal Inspection - Respiratory Exam Respiratory Exam: Decreased Breath Sounds, Wheezes - Cardiovascular Exam Cardiovascular Exam: REGULAR RHYTHM - GI/Abdominal Exam GI & Abdominal Exam: Soft, Normal Bowel Sounds - Extremities Exam Additional comments: R great toe wound closed, PICC line R Arm - Back Exam Back Exam: tenderness (mild) - Neurological Exam Neurological Exam: Alert, Oriented x3 Additional comments: Follows commands - Psychiatric Exam Psychiatric exam: Anxious - Skin Skin Exam: Normal Color, Warm Assessment and Plan (1) COPD exacerbation Status: Acute (2) Chronic cough Status: Acute (3) Hyperglycemia due to type 2 diabetes mellitus Status: Acute (4) Foot ulcer, right Status: Chronic (5) Diabetic neuropathy Status: Chronic (6) HTN (hypertension) Status: Chronic (7) PVD (peripheral vascular disease) Status: Chronic (8) Anxiety and depression Status: Chronic
[2018-10-29] MEDS: Insulin Detemir 100 Units/ml Inj SC SCH (21:59)
[2018-10-30] MEDS: Meropenem 500 MG in Sodium Chloride 0.9% 100 ML IVPB SCH ×2 (01:47→08:47)
[2018-10-30] MEDS: MethylPREDNISolone 40 mg Vial IV SCH ×2 (01:55→11:19)
[2018-10-30] MEDS: Levalbuterol 1.25 MG/3 ML Inhal Soln UD INH SCH (07:45)
[2018-10-30 08:10] VITALS: RESP 20
[2018-10-30] MEDS: Insulin Lispro (humaLOG) 100 Units/ml Inj SC SCH ×2 (08:41→12:58)
[2018-10-30] MEDS: Insulin Regular 100 units/ml SC SCH ×2 (08:46→12:59)
[2018-10-30] MEDS: Silver Sulfadiazine 1% Cream (20 gm) TOP SCH (08:50)
[2018-10-30] MEDS: Pantoprazole 40 mg EC Tab PO SCH (08:50)
[2018-10-30 12:34] VITALS: BP 160/74; PULSE 89; TEMP 97.7; O2SAT 99
--- NOTE | 2018-10-30 14:29 | CP.PCM.DIS ---
Provider - Provider Date of Admission: 10/23/18 22:45 Attending physician: Luís David MD Consults: 10/24/18 02:42 Wound Care [Nursing Referral for Wound Care] Routine Comment: Physician Instructions: Reason For Exam: right hallux ulcer 10/24/18 05:44 Infectious Disease Consult Routine Comment: Consulting Provider: Jihan Barclay Consulting Physician: Jihan Barclay Reason for Consult: right big toe infection 10/24/18 09:21 Cardiology Consult Routine Comment: Consulting Provider: Elijah Zavala Consulting Physician: Elijah Zavala Reason for Consult: severe pvd, cad Diagnosis - Discharge Diagnosis (1) COPD exacerbation Status: Acute Priority: High (2) Chronic cough Status: Acute Priority: High (3) Hyperglycemia due to type 2 diabetes mellitus Status: Acute Priority: High (4) Foot ulcer, right Status: Chronic Priority: High (5) Diabetic neuropathy Status: Chronic Priority: Medium (6) HTN (hypertension) Status: Chronic Priority: Medium (7) PVD (peripheral vascular disease) Status: Chronic Priority: Medium (8) Anxiety and depression Status: Chronic Priority: Medium Hospital Course - Lab Results Lab Results: Micro Results 10/23/18 21:02 Blood Blood Culture - Final NO GROWTH AFTER 5 DAYS 10/23/18 21:02 Blood Gram Stain - Final TEST NOT PERFORMED 10/24/18 06:42 Blood-Venous Blood Culture - Final NO GROWTH AFTER 5 DAYS 10/24/18 06:42 Blood-Venous Gram Stain - Final TEST NOT PERFORMED 10/23/18 21:31 Blood Blood Culture - Final NO GROWTH AFTER 5 DAYS 10/23/18 21:31 Blood Gram Stain - Final TEST NOT PERFORMED Most Recent Lab Values WBC 16.5 K/uL (4.8-10.8) H 10/26/18 04:45 RBC 3.32 Mil/uL (3.80-5.20) L 10/26/18 04:45 Hgb 9.3 g/dL (12.0-16.0) L 10/26/18 04:45 Hct 28.0 % (34.0-47.0) L 10/26/18 04:45 MCV 84.4 fl (81.0-99.0) 10/26/18 04:45 MCH 27.9 pg (27.0-31.0) 10/26/18 04:45 MCHC 33.1 g/dL (33.0-37.0) 10/26/18 04:45 RDW 14.2 % (11.5-14.5) 10/26/18 04:45 Plt Count 268 K/uL (130-400) 10/26/18 04:45 MPV 9.7 fl (7.2-11.7) 10/26/18 04:45 Neut % (Auto) 91.9 % (50.0-75.0) H 10/26/18 04:45 Lymph % (Auto) 5.8 % (20.0-40.0) L 10/26/18 04:45 [place] % (Auto) 2.2 % (0.0-10.0) 10/26/18 04:45 Eos % (Auto) 0.1 % (0.0-4.0) 10/26/18 04:45 Baso % (Auto) 0.0 % (0.0-2.0) 10/26/18 04:45 Neut # (Auto) 15.2 K/uL (1.8-7.0) H 10/26/18 04:45 Lymph # (Auto) 1.0 K/uL (1.0-4.3) 10/26/18 04:45 [place] # (Auto) 0.4 K/uL (0.0-0.8) 10/26/18 04:45 Eos # (Auto) 0.0 K/uL (0.0-0.7) 10/26/18 04:45 Baso # (Auto) 0.0 K/uL (0.0-0.2) 10/26/18 04:45 Neutrophils % (Manual) 86 % (42-75) H 10/26/18 04:45 Band Neutrophils % 1 % (0-2) 10/26/18 04:45 Lymphocytes % (Manual) 10 % (20-50) L 10/26/18 04:45 Monocytes % (Manual) 3 % (0-10) 10/26/18 04:45 Platelet Estimate Normal (NORMAL) 10/26/18 04:45 Hypochromasia (manual) Slight 10/26/18 04:45 Anisocytosis (manual) Slight 10/26/18 04:45 ESR 72 mm/hr (0-30) H 10/24/18 14:18 D-Dimer, Quantitative 156 ng/mlDDU (0-230) 10/26/18 04:45 pO2 28 mm/Hg (30-55) L 10/23/18 20:52 VBG pH 7.38 (7.32-7.43) 10/23/18 20:52 VBG pCO2 52 mmHg (40-60) 10/23/18 20:52 VBG HCO3 27.7 mmol/L 10/23/18 20:52 VBG Total CO2 32.4 mmol/L (22-28) H 10/23/18 20:52 VBG O2 Sat (Calc) 53.0 % (40-65) 10/23/18 20:52 VBG Base Excess 4.8 mmol/L (0.0-2.0) H 10/23/18 20:52 VBG Potassium 5.0 mmol/L (3.6-5.2) 10/23/18 20:52 Sodium 136.0 mmol/L (132-148) 10/23/18 20:52 Chloride 102.0 mmol/L (98-107) 10/23/18 20:52 Glucose 401 mg/dL (65-105) H* D 10/23/18 20:52 Lactate 2.0 mmol/L (0.7-2.1) 10/23/18 20:52 FiO2 21.0 % 10/23/18 20:52 Blood Gas Comments Vbg 10/23/18 20:52 Crit Value Called To Wolfgang salazar r.n. 10/23/18 20:52 Crit Value Called By Chiquita 10/23/18 20:52 Crit Value Read Back Y 10/23/18 20:52 Blood Gas Notified Time 211310/23/18 20:52 Sodium 138 mmol/l (132-148) 10/26/18 04:45 Potassium 4.8 MMOL/L (3.6-5.0) 10/26/18 04:45 Chloride 100 mmol/L (98-107) 10/26/18 04:45 Carbon Dioxide 26 mmol/L (22-30) 10/26/18 04:45 Anion Gap 17 (10-20) 10/26/18 04:45 BUN 41 mg/dl (7-17) H 10/26/18 04:45 Creatinine 1.3 mg/dl (0.7-1.2) H 10/26/18 04:45 Est GFR ( Amer) 48 10/26/18 04:45 Est GFR (Non-Af Amer) 40 10/26/18 04:45 POC Glucose (mg/dL) 201 mg/dL (65-110) H 10/30/18 11:01 Random Glucose 325 mg/dL (65-105) H 10/26/18 04:45 Hemoglobin A1c 9.0 % (4.2-6.5) H 10/26/18 04:45 Calcium 9.5 mg/dL (8.4-10.2) 10/26/18 04:45 Phosphorus 3.4 mg/dl (2.5-4.5) 10/26/18 04:45 Magnesium 2.3 MG/DL (1.6-2.3) 10/26/18 04:45 Total Bilirubin 0.2 mg/dl (0.2-1.3) 10/26/18 04:45 AST 18 U/L (14-36) 10/26/18 04:45 ALT 31 U/L (9-52) 10/26/18 04:45 Alkaline Phosphatase 89 U/L (38-126) 10/26/18 04:45 Troponin I < 0.0120 ng/mL (0.00-0.120) 10/23/18 21:27 NT-Pro-B Natriuret Pep 54.2 pg/ml (0-900) 10/23/18 21:27 Total Protein 7.2 G/DL (6.3-8.2) 10/26/18 04:45 Albumin 3.7 g/dL (3.5-5.0) 10/26/18 04:45 Globulin 3.5 gm/dL (2.2-3.9) 10/26/18 04:45 Albumin/Globulin Ratio 1.1 (1.0-2.1) 10/26/18 04:45 Triglycerides 128 mg/DL (0-149) D 10/26/18 04:45 Cholesterol 139 mg/dL (0-199) 10/26/18 04:45 LDL Cholesterol Direct 65 mg/dL (0-129) 10/26/18 04:45 HDL Cholesterol 48 MG/DL (30-70) 10/26/18 04:45 Thyroxine (T4) 6.23 ug/dl (5.5-11.0) 10/26/18 04:45 TSH 3rd Generation 0.03 mIU/ML (0.46-4.68) L 10/26/18 04:45 Venous Blood Potassium 5.0 mmol/L (3.6-5.2) 10/23/18 20:52 Vancomycin Trough 12.6 ug/mL (5.0-10.0) H 10/24/18 10:50 Influenza Typ A,B (EIA) Negative for flu a/b (NEGATIVE) 10/23/18 21:07 Discharge Exam - Head Exam Head Exam: NORMAL INSPECTION Discharge Plan - Discharge Medications Prescriptions: Albuterol/Ipratropium [Duoneb 3 mg/0.5 mg (3 ml) UD] 1 inh INH Q4 PRN #90 neb PRN Reason: Shortness Of Breath Omeprazole 40 mg PO DAILY #30 capsule. Promethazine/Codeine [Phenergan/Codeine Oral Syrup] 10 ml PO Q6 PRN #28 udc PRN Reason: Cough Clopidogrel [Plavix] 75 mg PO DAILY #30 tab predniSONE [predniSONE Tab] 30 mg PO DAILY #18 tab Silver Sulfadiazine 1% 50 gm [Silvadene 1% 50 gm] 1 applic TOP DAILY #1 jar Benzonatate [Tessalon Perles] 100 mg PO Q8 PRN #21 sgl PRN Reason: Cough Rivaroxaban [Xarelto] 10 mg PO DAILY #30 tab - Follow Up Plan Condition: FAIR Disposition: HOME/ ROUTINE Instructions: Rivaroxaban, Hyperglycemia, Adult (DC), Exacerbation of COPD (DC), Going Home on Blood Thinners Additional Instructions: follow up with in 1 week Referrals: Luís David MD [Family Provider] -
== END 2018-10-30 14:34 | disposition home health service (06) | DRG 191 ==
LOC: H.ER 20:14 → H.ERHOLD 22:45 → H.TEL 10-24 01:25
PROVIDERS: ADMIT Internal Medicine Pulmonary Disease; ATTEND Internal Medicine Pulmonary Disease
DX: J44.1 Chronic obstructive pulmonary disease with (acute) exacerbation (principal); I13.0 Hypertensive heart and chronic kidney disease with heart failure and stage 1 through stage 4 chronic kidney disease, or unspecified chronic kidney disease; D64.9 Anemia, unspecified; F41.9 Anxiety disorder, unspecified; I50.9 Heart failure, unspecified; M19.90 Unspecified osteoarthritis, unspecified site; E05.00 Thyrotoxicosis with diffuse goiter without thyrotoxic crisis or storm; E78.00 Pure hypercholesterolemia, unspecified; M81.0 Age-related osteoporosis without current pathological fracture; Z87.01 Personal history of pneumonia (recurrent); E11.65 Type 2 diabetes mellitus with hyperglycemia; E11.40 Type 2 diabetes mellitus with diabetic neuropathy, unspecified; E11.621 Type 2 diabetes mellitus with foot ulcer; E11.51 Type 2 diabetes mellitus with diabetic peripheral angiopathy without gangrene; Z95.5 Presence of coronary angioplasty implant and graft; I48.91 Unspecified atrial fibrillation; G89.29 Other chronic pain; F32.9 Major depressive disorder, single episode, unspecified; L97.519 Non-pressure chronic ulcer of other part of right foot with unspecified severity; N18.9 Chronic kidney disease, unspecified; E11.22 Type 2 diabetes mellitus with diabetic chronic kidney disease; Z79.4 Long term (current) use of insulin; Z87.891 Personal history of nicotine dependence

== ENCOUNTER 2019-01-15 10:51 | Inpatient (IN) | payer MEDICARE, MEDICAID ==
[2019-01-15 10:58] VITALS: BMI 30.8
--- NOTE | 2019-01-15 12:57 | ED PDOC ---
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 Patient also reports of back pain that radiates to his left posterior thigh. Otherwise, she denies weakness or paraesthesia. PMD: Luís David Past Medical History Reviewed: Historical Data, Nursing Documentation, Vital Signs Vital Signs: Last Vital Signs Temp 98.5 F 01/15/19 10:56 Pulse 104 H 01/15/19 10:56 Resp 18 01/15/19 10:56 BP 145/63 01/15/19 10:56 Pulse Ox 99 01/15/19 10:56 - Medical History PMH: Anemia, Anxiety, Arthritis, Asthma, CHF, COPD (Daughter denies), Depressio n, Diabetes, Graves' Disease, HTN, Hypercholesterolemia, Osteoporosis, Pneumonia (Daughter denies), Chronic Kidney Disease Denies: HIV, Hypothyroidism - Surgical History Surgical History: Coronary Stent - Family History Family History: States: Unknown Family Hx - Immunization History Hx Influenza Vaccination: Yes Hx Pneumococcal Vaccination: Yes - Home Medications Home Medications: Ambulatory Orders Medication Instructions Recorded Montelukast [Singulair] 10 mg PO DAILY 10/13/17 Atorvastatin [Lipitor] 40 mg PO DAILY 09/08/18 Cholecalciferol [Vitamin D 1000 IU] 50,000 iu PO QWK 09/08/18 Cyclobenzaprine [Flexeril] 5 mg PO TID 09/08/18 amLODIPine [Norvasc] 10 mg PO DAILY 09/08/18 Docusate [Colace] 100 mg PO BID cap 09/28/18 Ondansetron ODT [Zofran ODT] 4 mg PO Q8H PRN odt 09/28/18 oxyCODONE/Acetaminophen [Percocet 1 tab PO Q6 PRN tab 09/28/18 5/325 mg Tab] Ezetimibe [Zetia] 10 mg PO DAILY 10/23/18 Famotidine [Pepcid] 20 mg PO DAILY 10/23/18 Insulin Detemir [Levemir] 30 units SC HS 10/23/18 Temazepam [Restoril] 30 mg PO DAILY 10/23/18 Albuterol/Ipratropium [Duoneb 3 1 inh INH Q4 PRN #90 neb 10/30/18 mg/0.5 mg (3 ml) UD] Benzonatate [Tessalon Perles] 100 mg PO Q8 PRN #21 sgl 10/30/18 Clopidogrel [Plavix] 75 mg PO DAILY #30 tab 10/30/18 Omeprazole 40 mg PO DAILY #30 capsule. 10/30/18 Promethazine/Codeine 10 ml PO Q6 PRN #28 udc 10/30/18 [Phenergan/Codeine Oral Syrup] Rivaroxaban [Xarelto] 10 mg PO DAILY #30 tab 10/30/18 Silver Sulfadiazine 1% 50 gm 1 applic TOP DAILY #1 jar 10/30/18 [Silvadene 1% 50 gm] predniSONE [predniSONE Tab] 30 mg PO DAILY #18 tab 10/30/18 - Allergies Allergies/Adverse Reactions: Allergies Allergy/AdvReac Type Severity Reaction Status Date / Time aspirin AdvReac RASH Verified 10/23/18 20:19 Review of Systems ROS Statement: Except As Marked, All Systems Reviewed And Found Negative Musculoskeletal: Positive for: Back Pain, Leg Pain (left calf ), Foot Pain (left) Neurological: Negative for: Weakness, Numbness, Other (paraesthesia) Physical Exam - Reviewed Nursing Documentation Reviewed: Yes Vital Signs Reviewed: Yes - Physical Exam Appears: Positive for: Well, Non-toxic, No Acute Distress Head Exam: Positive for: ATRAUMATIC, NORMAL INSPECTION, NORMOCEPHALIC Skin: Positive for: Normal Color, Warm, Dry. Negative for: Rash Cardiovascular/Chest: Positive for: Regular Rate, Rhythm. Negative for: Murmur Respiratory: Positive for: Normal Breath Sounds. Negative for: Respiratory Distress Extremity: Positive for: Tenderness (mild tenderness to left foot), Calf Tenderness (left ), Other (left popliteal pulse is palpable and left DP and PT pulses no palpable as family states these are chronic findings ). Negative for: Deformity, Swelling Neurological/Psych: Positive for: Awake, Alert, Normal Tone, Oriented (x3). Negative for: Motor/Sensory Deficits - ECG O2 Sat by Pulse Oximetry: 99 (RA) Pulse Ox Interpretation: Normal Medical Decision Making Medical Decision Making: Time: 11:18 Assessment: Will obtain venous and atrial duplex. Pain appears to be more radicular in nature for back pain rather than acute articular occlusion or DVT s/p stent Plan: Duplex lower Ext Art LT LMTD [US] Duplex lower Extrm Vein Left [US] Reevaluation Venous duplex negative for DVT Arterial duplex reveals decreased flow but acute arterial occlusion unlikely. Will place in obs, [id number] with Dr. David and have dr. Zavala evaluate for peripheral vascular disease. -- Scribe Attestation: Documented by Caitlin Hernandez, acting as a scribe for Jaron Waldrop MD. Provider Scribe Attestation: All medical record entries made by the Scribe were at my direction and personally dictated by me. I have reviewed the chart and agree that the record accurately reflects my personal performance of the history, physical exam, medical decision making, and the department course for this patient. I have also personally directed, reviewed, and agree with the discharge instructions and disposition. Disposition - Clinical Impression Clinical Impression: Leg pain, Peripheral vascular disease, Radiculopathy - Patient ED Disposition Is Patient to be Admitted: Yes - Disposition Disposition Time: 14:25 Condition: FAIR Forms: [facility] (Danish) - Pt Status Changed To: Hospital Disposition Of: Observation - POA Present On Arrival: None
--- NOTE | 2019-01-15 14:10 | US ---
Date of service: 01/15/2019 HISTORY: calf pain r/o DVT. PRIORS: None. FINDINGS: 2-D, color and duplex Doppler analysis of the lower extremity venous circulation using routine protocol from the femoral veins through the popliteal veins. Venous compressibility: Normal. Flow and augmentation patterns: Normal. Visualized veins upper third of calf: Normal. Nguyen cyst: None. IMPRESSION: No sonographic or Doppler evidence for DVT in left lower extremity.
--- NOTE | 2019-01-15 14:41 | US ---
Date of service: 01/15/2019 PROCEDURE: Left Lower Extremity Arterial Exam. HISTORY: arterial occlusion s/p stent COMPARISON: None available. TECHNIQUE: Grayscale and duplex Doppler evaluation of the left common femoral, femoral, profunda femoral, popliteal, posterior tibial, anterior tibial and dorsalis pedis arteries was performed. Report prepared by applied technologist. FINDINGS: LEFT LOWER EXTREMITY: * Common Femoral Artery: Peak Systolic Velocity-170.7: Doppler Waveform: Biphasic: * Femoral Artery o Proximal Segment: Peak Systolic Velocity-121.6: Doppler Waveform: Monophasic: o Middle Segment: Peak Systolic Velocity-184.2: Doppler Waveform: Monophasic: o Distal Segment: Peak Systolic Velocity-116.7: Doppler Waveform: Monophasic: * Popliteal Artery o Peak Systolic Velocity-110.3: Doppler Waveform: Monophasic: * Posterior Tibial Artery: Peak Systolic Velocity-103.8: Doppler Waveform: Monophasic: * Anterior Tibial Artery: Peak Systolic Velocity-32.7: Doppler Waveform: Monophasic: * Dorsalis Pedis Artery: Peak Systolic Velocity-88.2: Doppler Waveform: Monophasic: OTHER FINDINGS: None. IMPRESSION: There is no evidence of hemodynamically significant arterial insufficiency in the left lower extremity.
--- NOTE | 2019-01-15 15:32 | CT ---
Date of service: 01/15/2019 PROCEDURE: CT Lumbar Spine without contrast HISTORY: Radiculopathy COMPARISON: None available. TECHNIQUE: Axial computed tomography images were obtained of the lumbar spine without the use of intravenous contrast. Coronal and sagittal reformatted images were created and reviewed. Radiation dose: Total exam DLP = 700.0 mGy-cm. This CT exam was performed using one or more of the following dose reduction techniques: Automated exposure control, adjustment of the mA and/or kV according to patient size, and/or use of iterative reconstruction technique. FINDINGS: VERTEBRAE: Unremarkable. No fracture. Normal alignment. DISCS/SPINAL CANAL/NEURAL FORAMINA: L1-2: Unremarkable. L2-3: Minimal diffuse disc bulge. No focal herniation. No spinal or foraminal stenosis. L3-4: Markedly narrowed intervertebral disc space. Vacuum disc phenomenon. There is broad-based midline extruded disc disc material along the dorsal aspect of the L4 vertebral body. There is gas seen within a portion of the extruded disc material consistent with the vacuum disc phenomenon seen elsewhere within the disc space. There is mild to moderate right neural foraminal stenosis. There is no central spinal stenosis. L4-5: There is narrowing of the intervertebral disc space consistent with degenerative disc disease. There is vacuum disc phenomenon. There is midline disc herniation, broad-based. This results in mass effect upon the thecal sac. There is minimal central spinal stenosis. There is mild bilateral neural foraminal stenosis. L5-S1: Unremarkable. PARASPINAL SOFT TISSUES: Markedly distended urinary bladder. Left hydroureteronephrosis. The examination does not include the ureterovesical junction. OTHER FINDINGS: None. IMPRESSION: Degenerative disc disease with extruded disc at L3-4. Degenerative disc disease with broad-based midline disc herniation at L4-5. Only mild central spinal stenosis at L4-5. Neural foraminal stenosis L3-4 and L4-5 as above. Distended urinary bladder with left hydroureteronephrosis. Further evaluation is advised.
--- NOTE | 2019-01-15 15:49 | RAD ---
Date of service: 01/15/2019 HISTORY: leg pain COMPARISON: No prior. TECHNIQUE: Chest PA and lateral views FINDINGS: LUNGS: No active pulmonary disease. PLEURA: No significant pleural effusion identified. No pneumothorax apparent. CARDIOVASCULAR: No aortic atherosclerotic calcification present. Normal cardiac size. No pulmonary vascular congestion. OSSEOUS STRUCTURES: No significant abnormalities. VISUALIZED UPPER ABDOMEN: Normal. OTHER FINDINGS: None. IMPRESSION: No active disease.
[2019-01-15 15:52] LABS: BASO # 0.1 K/uL (0.0-0.2); BASO % 0.6 % (0.0-2.0); EOS # 0.3 K/uL (0.0-0.7); EOS % 3.1 % (0.0-4.0); HEMOGLOBIN 10.2 g/dL (12.0-16.0); LYMPH # 3.8 K/uL (1.0-4.3); LYMPH % 38.8 % (20.0-40.0); MEAN CELL VOLUME 84.1 fl (81.0-99.0); MEAN CORPUSCULAR HEMOGLOBIN 27.3 pg (27.0-31.0); MEAN CORPUSCULAR HGB CONC 32.4 g/dL (33.0-37.0); MONO % 10.1 % (0.0-10.0); NEUT # 4.6 K/uL (1.8-7.0); NEUT % 47.4 % (50.0-75.0); NRBC % 0.1 % (0.0-0.0); RBC 3.75 Mil/uL (3.80-5.20); RED CELL DISTRIBUTION WIDTH 16.1 % (11.5-14.5); WHITE BLOOD COUNT 9.7 K/uL (4.8-10.8)
[2019-01-15 16:04] LABS: ALB/GLOB RATIO 1.2 (1.0-2.1); ALBUMIN 4.7 g/dL (3.5-5.0)
[2019-01-15 16:05] LABS: PROTHROMBIN TIME 11.5 Seconds (9.8-13.1)
[2019-01-15] MEDS ORDERED: Oxycodone/Acetaminophen 5/325 mg Tab PO PRN ×2 (17:10→20:26)
[2019-01-15] MEDS ORDERED: Oxycodone/Acetaminophen 5/325 mg Tab ONE (17:44)
[2019-01-15] MEDS ORDERED: Glucagon Recombinant 1 mg Inj IM PRN (20:19)
[2019-01-15] MEDS ORDERED: Dextrose 50% SYRINGE Inj (50 ml) IV PRN (20:19)
[2019-01-15] MEDS ORDERED: Albuterol-Ipratrop 3 mg / 0.5 (3 ml) UD INH PRN (20:22)
[2019-01-15] MEDS: Amylase/Lipase/Protease 5,000 Units ECC PO SCH (22:12)
[2019-01-15] MEDS: FLUTICASONE PROPION/SALMETEROL 113-14 IH SCH (22:13)
[2019-01-15] MEDS: Insulin Detemir 100 Units/ml Inj SC SCH (23:31)
[2019-01-15] MEDS: Insulin Lispro (humaLOG) 100 Units/ml Inj SC SCH (23:31)
[2019-01-16 03:56] LABS: SQUAMOUS EPITHIAL 7 /hpf (0-5); URINE BILIRUBIN NEGATIVE (NEGATIVE); URINE BLOOD NEGATIVE (NEGATIVE); URINE CLARITY SLIGHTY-CLOUDY (Clear); URINE COLOR YELLOW (YELLOW); URINE GLUCOSE (UA) 150 mg/dL (NEGATIVE); URINE HYALINE CAST 0-2 /hpf (0-2); URINE LEUKOCYTE ESTERASE NEG Leu/uL (Negative); URINE PROTEIN 30 mg/dL (NEGATIVE); URINE UROBILINOGEN 0.2-1.0 mg/dL (0.2-1.0)
[2019-01-16 05:45] LABS: BASO % 0.7 % (0.0-2.0); EOS # 0.3 K/uL (0.0-0.7); EOS % 3.4 % (0.0-4.0); HEMOGLOBIN 9.1 g/dL (12.0-16.0); LYMPH # 2.8 K/uL (1.0-4.3); LYMPH % 37.4 % (20.0-40.0); MEAN CELL VOLUME 83.5 fl (81.0-99.0); MEAN CORPUSCULAR HEMOGLOBIN 27.9 pg (27.0-31.0); MEAN CORPUSCULAR HGB CONC 33.4 g/dL (33.0-37.0); MEAN PLATELET VOLUME 8.5 fl (7.2-11.7); MONO % 13.5 % (0.0-10.0); NEUT # 3.4 K/uL (1.8-7.0); RBC 3.25 Mil/uL (3.80-5.20); RED CELL DISTRIBUTION WIDTH 16.3 % (11.5-14.5); WHITE BLOOD COUNT 7.4 K/uL (4.8-10.8)
[2019-01-16 05:46] LABS: ALB/GLOB RATIO 1.2 (1.0-2.1); ALBUMIN 3.8 g/dL (3.5-5.0)
[2019-01-16] MEDS: Insulin Lispro (humaLOG) 100 Units/ml Inj SC SCH ×7 (08:21→21:21)
[2019-01-16] MEDS: Amylase/Lipase/Protease 5,000 Units ECC PO SCH ×2 (08:22→13:14)
[2019-01-16] MEDS: FLUTICASONE PROPION/SALMETEROL 113-14 IH SCH ×2 (08:25→21:09)
[2019-01-16] MEDS: Multivitamin With Minerals Tab PO SCH (08:30)
[2019-01-16] MEDS ORDERED: Patient's Own Med (Irbesartan/Hydrochlorothiazide [Irbesartan-Hctz 300-12.5 Mg Tb] 1 TAB) PO SCH (09:00)
--- NOTE | 2019-01-16 09:02 | CARD ---
APPROVED REPORT Date of service: 01/15/2019 EKG Measurement Heart [id number] <Conclusion> Sinus tachycardia Non specific T-wave changes Abnormal ECG
--- NOTE | 2019-01-16 14:42 | CP.PCM.CON ---
History of Present Illness - History of Present Illness History of Present Illness: Consultation for evaluation of Left lower extremity discomfort HPI: Elizabeth is a pleasant 78-year-old female with past medical history significant for peripheral vascular occlusive disease status post occlusion of the right SFA status post angioplasty and atherectomy x2 last procedure was back in August she was recently seen by me in the office a few weeks ago at which time she was having some discomfort in the right lower extremity at that time there was some resting hyperemia for which the plan was to undergo a planned procedure on January 23 she now presented to the emergency room yesterday with complaints of left lower extremity discomfort described as radicular pain radiating down the back to her left lower extremity aching in character she was noted to have C5-C6 that her disc herniation on the CAT scan of the lumbosacral spine arterial duplex showed good arterial flow all the way down to the toes. CT abdomen also noted to have a left hydronephrosis with hydroureter for which she is going down for ultrasound of the renal kidneys. Review of Systems - Review of Systems Systems not reviewed;Unavailable: Acuity of Condition - Constitutional Constitutional: As Per HPI - EENT Eyes: As Per HPI Ears: As Per HPI Nose/Mouth/Throat: As Per HPI - Breasts Breasts: As Per HPI - Cardiovascular Cardiovascular: As Per HPI - Respiratory Respiratory: As Per HPI - Gastrointestinal Gastrointestinal: As Per HPI - Genitourinary Genitourinary: As Per HPI - Reproductive: Female Reproductive:Female: As Per HPI - Menstruation Menstruation: As Per HPI - Musculoskeletal Musculoskeletal: As Per HPI - Integumentary Integumentary: As Per HPI - Neurological Neurological: As Per HPI - Psychiatric Psychiatric: As Per HPI - Endocrine Endocrine: As Per HPI - Hematologic/Lymphatic Hematologic: As Per HPI Past Patient History - Infectious Disease Hx of Infectious Diseases: None - Tetanus Immunizations Tetanus Immunization: Unknown - Past Medical History & Family History Past Medical History?: Yes - Past Social History Smoking Status: Former Smoker - CARDIAC Hx Cardiac Disorders: Yes Hx Atrial Fibrillation: Yes Hx Congestive Heart Failure: Yes Hx Hypercholesterolemia: Yes Hx Hypertension: Yes - PULMONARY Hx Respiratory Disorders: Yes Hx Asthma: Yes Hx Chronic Obstructive Pulmonary Disease (COPD): Yes (Daughter denies) Hx Pneumonia: Yes (Daughter denies) - NEUROLOGICAL Hx Neurological Disorder: Yes Other/Comment: DM Neuropathy - HEENT Hx HEENT Problems: Yes (Allergic Rhinitis.) - RENAL Hx Chronic Kidney Disease: Yes - ENDOCRINE/METABOLIC Hx Endocrine Disorders: Yes Hx Diabetes Mellitus Type 2: Yes Hx Hypothyroidism: No - HEMATOLOGICAL/ONCOLOGICAL Hx Blood Disorders: Yes Hx Anemia: Yes Hx Human Immunodeficiency Virus (HIV): No - INTEGUMENTARY Hx Dermatological Problems: No - MUSCULOSKELETAL/RHEUMATOLOGICAL Hx Musculoskeletal Disorders: Yes Hx Arthritis: Yes Hx Falls: No Hx Osteoporosis: Yes - GASTROINTESTINAL Hx Gastrointestinal Disorders: Yes Hx Gastroesophageal Reflux: Yes - GENITOURINARY/GYNECOLOGICAL Hx Genitourinary Disorders: No - PSYCHIATRIC Hx Psychophysiologic Disorder: Yes Hx Anxiety: Yes Hx Depression: Yes Hx Substance Use: No - SURGICAL HISTORY Hx Surgeries: Yes Hx Coronary Stent: Yes Hx Vascular Surgery: Yes Other/Comment: right fermoral atherectomy and angioplasty done by Dr. Zavala - ANESTHESIA Hx Anesthesia: Yes Hx Anesthesia Reactions: No Hx Malignant Hyperthermia: No Meds Allergies/Adverse Reactions: Allergies Allergy/AdvReac Type Severity Reaction Status Date / Time aspirin AdvReac RASH Verified 10/23/18 20:19 - Medications Medications: Current Medications Albuterol/Ipratropium (Duoneb 3 Mg/0.5 Mg (3 Ml) Ud) 3 ml INH RQ6 PRN PRN Reason: Shortness of Breath Amlodipine Besylate (Norvasc) 10 mg PO DAILY [facility] Last Admin: 01/16/19 08:28 Dose: 10 mg Amylase (Pancrease [id number] [id number] U) 5,000 unit PO WM [facility] Last Admin: 01/16/19 13:14 Dose: 5,000 unit Atorvastatin Calcium (Lipitor) 40 mg PO DAILY [facility] Last Admin: 01/16/19 08:27 Dose: 40 mg Clopidogrel Bisulfate (Plavix) 75 mg PO DAILY [facility] Last Admin: 01/16/19 08:29 Dose: 75 mg Dextrose (Dextrose 50% Inj) 0 ml IV STAT PRN; Protocol PRN Reason: Hypoglycemia Protocol Dextrose (Glutose 15) 0 gm PO ONCE PRN; Protocol PRN Reason: Hypoglycemia Protocol Ezetimibe (Zetia) 10 mg PO DAILY [facility] Last Admin: 01/16/19 08:30 Dose: 10 mg Glucagon (Glucagen Diagnostic Kit) 0 mg IM STAT PRN; Protocol PRN Reason: Hypoglycemia Protocol Hydrochlorothiazide (Microzide) 12.5 mg PO DAILY [facility] Last Admin: 01/16/19 09:55 Dose: 12.5 mg Insulin Detemir (Levemir) 30 units SC HS [facility] Last Admin: 01/15/19 23:31 Dose: 30 units Insulin Human Lispro (Humalog) 0 units SC ACHS [facility]; Protocol Last Admin: 01/16/19 13:14 Dose: 1 u Insulin Human Lispro (Humalog) 30 units SC ACTID [facility] Last Admin: 01/16/19 13:15 Dose: 30 u Loratadine (Claritin) 10 mg PO DAILY PRN PRN Reason: Allergy symptoms Losartan Potassium (Cozaar) 100 mg PO DAILY [facility] Last Admin: 01/16/19 08:26 Dose: 100 mg Mirtazapine (Remeron) 15 mg PO HS [facility] Last Admin: 01/15/19 22:13 Dose: 15 mg Montelukast Sodium (Singulair) 10 mg PO [facility] Last Admin: 01/15/19 22:13 Dose: 10 mg Multivitamins/Minerals (Therapeutic-M Tab) 1 tab PO DAILY [facility] Last Admin: 01/16/19 08:30 Dose: 1 tab Oxycodone/Acetaminophen (Percocet 5/325 Mg Tab) 2 tab PO Q4 PRN PRN Reason: Pain, severe (8-10) Stop: 01/18/19 21:01 Last Admin: 01/15/19 23:36 Dose: 2 tab Oxycodone/Acetaminophen (Percocet 5/325 Mg Tab) 1 tab PO Q4 PRN PRN Reason: Pain, moderate (4-7) Stop: 01/18/19 17:11 Pantoprazole Sodium (Protonix Inj) 40 mg IVP DAILY [facility] Last Admin: 01/16/19 08:30 Dose: 40 mg Pregabalin (Lyrica) 50 mg PO Q12 [facility] Last Admin: 01/16/19 08:43 Dose: 50 mg Rivaroxaban (Xarelto) 10 mg PO DAILY [facility]; Protocol Last Admin: 01/16/19 08:29 Dose: 10 mg Physical Exam - Constitutional Appears: Well - Head Exam Head Exam: ATRAUMATIC, NORMAL INSPECTION, NORMOCEPHALIC - Eye Exam Eye Exam: EOMI, Normal appearance, PERRL Pupil Exam: NORMAL ACCOMODATION, PERRL - ENT Exam ENT Exam: Mucous Membranes Moist, Normal Exam - Neck Exam Neck exam: Positive for: Normal Inspection - Respiratory Exam Respiratory Exam: Clear to Auscultation Bilateral, NORMAL BREATHING PATTERN - Cardiovascular Exam Cardiovascular Exam: REGULAR RHYTHM, RRR, +S1, +S2, Systolic Murmur - GI/Abdominal Exam GI & Abdominal Exam: Normal Bowel Sounds, Soft. absent: Tenderness - Extremities Exam Extremities exam: Positive for: normal inspection - Back Exam Back exam: NORMAL INSPECTION - Neurological Exam Neurological exam: Alert, CN II-XII Intact, Normal Gait, Oriented x3, Reflexes Normal - Psychiatric Exam Psychiatric exam: Normal Affect, Normal Mood - Skin Skin Exam: Dry, Intact, Normal Color, Warm Results - Vital Signs Recent Vital Signs: Last Vital Signs Temp 98.2 F 01/16/19 11:58 Pulse 91 H 01/16/19 11:58 Resp 20 01/16/19 11:58 BP 116/65 01/16/19 11:58 Pulse Ox 97 01/16/19 11:58 - Labs Result Diagrams: 01/16/19 04:45 01/16/19 04:45 Labs: Laboratory Results - last 24 hr 01/15/19 01/15/19 01/15/19 15:46 15:46 15:46 WBC 9.7 RBC 3.75 L Hgb 10.2 L Hct 31.5 L MCV 84.1 MCH 27.3 MCHC 32.4 L RDW 16.1 H Plt Count 363 MPV 8.0 Neut % (Auto) 47.4 L Lymph % (Auto) 38.8 Trigg % (Auto) 10.1 H Eos % (Auto) 3.1 Baso % (Auto) 0.6 Neut # (Auto) 4.6 Lymph # (Auto) 3.8 Trigg # (Auto) 1.0 H Eos # (Auto) 0.3 Baso # (Auto) 0.1 PT 11.5 INR 1.0 Sodium 136 Potassium 4.5 Chloride 99 Carbon Dioxide 25 Anion Gap 17 BUN 28 H Creatinine 1.2 Est GFR ( Amer) 53 Est GFR (Non-Af Amer) 43 POC Glucose (mg/dL) Random Glucose 218 H Hemoglobin A1c Calcium 10.0 Total Bilirubin 0.4 AST 38 H D ALT 27 Alkaline Phosphatase 114 Total Protein 8.4 H Albumin 4.7 Globulin 3.8 Albumin/Globulin Ratio 1.2 Triglycerides Cholesterol LDL Cholesterol Direct HDL Cholesterol Thyroxine (T4) TSH 3rd Generation Urine Color Urine Clarity Urine pH Ur Specific [place] Urine Protein Urine Glucose (UA) Urine Ketones Urine Blood Urine Nitrate Urine Bilirubin Urine Urobilinogen Ur Leukocyte Esterase Urine RBC (Auto) Urine Microscopic WBC Ur Squamous Epith Cells Hyaline Casts 01/15/19 01/15/19 01/16/19 17:55 22:47 03:35 WBC RBC Hgb Hct MCV MCH MCHC RDW Plt Count MPV Neut % (Auto) Lymph % (Auto) Trigg % (Auto) Eos % (Auto) Baso % (Auto) Neut # (Auto) Lymph # (Auto) Trigg # (Auto) Eos # (Auto) Baso # (Auto) PT INR Sodium Potassium Chloride Carbon Dioxide Anion Gap BUN Creatinine Est GFR ( Amer) Est GFR (Non-Af Amer) POC Glucose (mg/dL) 215 H 316 H Random Glucose Hemoglobin A1c Calcium Total Bilirubin AST ALT Alkaline Phosphatase Total Protein Albumin Globulin Albumin/Globulin Ratio Triglycerides Cholesterol LDL Cholesterol Direct HDL Cholesterol Thyroxine (T4) TSH 3rd Generation Urine Color Yellow Urine Clarity Slighty-cloudy Urine pH 6.0 Ur Specific [place] 1.012 Urine Protein 30 Urine Glucose (UA) 150 Urine Ketones Negative Urine Blood Negative Urine Nitrate Negative Urine Bilirubin Negative Urine Urobilinogen 0.2-1.0 Ur Leukocyte Esterase Neg Urine RBC (Auto) 2 Urine Microscopic WBC 1 Ur Squamous Epith Cells 7 H Hyaline Casts 0-2 01/16/19 01/16/19 01/16/19 04:45 04:45 04:45 WBC 7.4 RBC 3.25 L Hgb 9.1 L Hct 27.1 L MCV 83.5 MCH 27.9 MCHC 33.4 RDW 16.3 H Plt Count 304 MPV 8.5 Neut % (Auto) 45.0 L Lymph % (Auto) 37.4 Trigg % (Auto) 13.5 H Eos % (Auto) 3.4 Baso % (Auto) 0.7 Neut # (Auto) 3.4 Lymph # (Auto) 2.8 Trigg # (Auto) 1.0 H Eos # (Auto) 0.3 Baso # (Auto) 0.0 PT INR Sodium 134 Potassium 4.6 Chloride 99 Carbon Dioxide 26 Anion Gap 14 BUN 34 H Creatinine 1.3 H Est GFR ( Amer) 48 Est GFR (Non-Af Amer) 40 POC Glucose (mg/dL) Random Glucose 286 H Hemoglobin A1c 8.2 H Calcium 9.0 Total Bilirubin 0.3 AST 33 ALT 20 Alkaline Phosphatase 81 Total Protein 7.0 Albumin 3.8 Globulin 3.1 Albumin/Globulin Ratio 1.2 Triglycerides 314 H D Cholesterol 168 LDL Cholesterol Direct 82 HDL Cholesterol 28 L Thyroxine (T4) 6.26 TSH 3rd Generation 3.16 Urine Color Urine Clarity Urine pH Ur Specific [place] Urine Protein Urine Glucose (UA) Urine Ketones Urine Blood Urine Nitrate Urine Bilirubin Urine Urobilinogen Ur Leukocyte Esterase Urine RBC (Auto) Urine Microscopic WBC Ur Squamous Epith Cells Hyaline Casts 01/16/19 01/16/19 05:34 11:03 WBC RBC Hgb Hct MCV MCH MCHC RDW Plt Count MPV Neut % (Auto) Lymph % (Auto) Trigg % (Auto) Eos % (Auto) Baso % (Auto) Neut # (Auto) Lymph # (Auto) Trigg # (Auto) Eos # (Auto) Baso # (Auto) PT INR Sodium Potassium Chloride Carbon Dioxide Anion Gap BUN Creatinine Est GFR ( Amer) Est GFR (Non-Af Amer) POC Glucose (mg/dL) 279 H 167 H Random Glucose Hemoglobin A1c Calcium Total Bilirubin AST ALT Alkaline Phosphatase Total Protein Albumin Globulin Albumin/Globulin Ratio Triglycerides Cholesterol LDL Cholesterol Direct HDL Cholesterol Thyroxine (T4) TSH 3rd Generation Urine Color Urine Clarity Urine pH Ur Specific [place] Urine Protein Urine Glucose (UA) Urine Ketones Urine Blood Urine Nitrate Urine Bilirubin Urine Urobilinogen Ur Leukocyte Esterase Urine RBC (Auto) Urine Microscopic WBC Ur Squamous Epith Cells Hyaline Casts Assessment & Plan (1) Leg pain Assessment and Plan: 2' to disc impingement from disc herniation vascular status stable will need evaluation by spine surgery / PT for further evaluation and treatment Status: Acute (2) Radiculopathy Assessment and Plan: PT neuro sx eval as outpt Status: Acute (3) PVD (peripheral vascular disease) Assessment and Plan: cont xarelto and plavix Status: Chronic Priority: Medium (4) HTN (hypertension) Assessment and Plan: cont norvasc, losartan, hctz Status: Chronic Priority: Medium (5) Dyslipidemia Assessment and Plan: cont lipitor and zetia Status: Acute
--- NOTE | 2019-01-16 14:57 | CP.PCM.HP ---
History of Present Illness - History of Present Illness History of Present Illness: CC: L Leg pain/Back/Calf and Foot. 78 y/o F, with extensive chronic medical conditions, including; PVD, COPD, HTN, DMII, s/p occlusion R SFA, s/p R femoral Artherctomy/ angioplasty by Dr Zavala. Pt walk in [facility] on 01/15/19 to be evaluated for worsening Back pain radiated to L leg / calf and foot from a week, increased on day [employer], associated to degenerative disk disease, described as intermittent, aching/throbbing, severe intensity 8:10. Pt has taken Percocet/ Ibuprofen with mild relief. Worsening symptoms: Swelling LLE, Increased pain when walking. Aggravated factor: Movements/exercise/ADL's. Pt denied: Fever, chills, n/v/d, abdominal pain, urinary symptoms, CP, palpitations, SOB, cough, sick contact, recent travel out of [facility] [place]. CXR: No active disease. Ext U-S: No DVT. Duplex Scan Lower Ext. Artery: No evidence of arterial insufficiency in the LLE. Lumbar Spine CT: Degenerative disk disease L3-4 L4-5, mild central spinal stenosis L4-5, Foraminal stenosis L3-4, L4-5 EKG: Sinus Tachycardia, non specific T wave changes. Present on Admission - Present on Admission Any Indicators Present on Admission: Yes History of DVT/PE: Yes Review of Systems - Constitutional Constitutional: Other (negative) - EENT Eyes: Other (negative) Ears: Other (negative) Nose/Mouth/Throat: Nasal Congestion - Cardiovascular Cardiovascular: Rapid Heart Rate - Respiratory Respiratory: Other (negative) - Gastrointestinal Gastrointestinal: Other (negative) - Genitourinary Genitourinary: Other (negative) - Musculoskeletal Musculoskeletal: Arthralgias, Radiating Pain into Limb (L leg) - Integumentary Integumentary: Other (negative) - Neurological Neurological: Other (negative) - Psychiatric Psychiatric: Anxiety, Depression - Endocrine Endocrine: Other (negative) - Hematologic/Lymphatic Hematologic: Other (negtaive) Past Patient History - Infectious Disease Hx of Infectious Diseases: None - Tetanus Immunizations Tetanus Immunization: Unknown - Past Medical History & Family History Past Medical History?: Yes Pertinent Family History: Unknown - Past Social History Smoking Status: Former Smoker Alcohol: None Drugs: Denies Home Situation {Lives}: With Family - CARDIAC Hx Cardiac Disorders: Yes Hx Atrial Fibrillation: Yes Hx Congestive Heart Failure: Yes Hx Hypercholesterolemia: Yes Hx Hypertension: Yes - PULMONARY Hx Respiratory Disorders: Yes Hx Asthma: Yes Hx Chronic Obstructive Pulmonary Disease (COPD): Yes Hx Pneumonia: Yes - NEUROLOGICAL Hx Neurological Disorder: Yes Other/Comment: DM Neuropathy - HEENT Hx HEENT Problems: Yes (Allergic Rhinitis.) - RENAL Hx Chronic Kidney Disease: Yes - ENDOCRINE/METABOLIC Hx Endocrine Disorders: Yes Hx Diabetes Mellitus Type 2: Yes Hx Hypothyroidism: No - HEMATOLOGICAL/ONCOLOGICAL Hx Blood Disorders: Yes Hx Anemia: Yes Hx Human Immunodeficiency Virus (HIV): No - INTEGUMENTARY Hx Dermatological Problems: No - MUSCULOSKELETAL/RHEUMATOLOGICAL Hx Musculoskeletal Disorders: Yes Hx Arthritis: Yes Hx Falls: No Hx Osteoporosis: Yes - GASTROINTESTINAL Hx Gastrointestinal Disorders: Yes Hx Gastroesophageal Reflux: Yes - GENITOURINARY/GYNECOLOGICAL Hx Genitourinary Disorders: No - PSYCHIATRIC Hx Psychophysiologic Disorder: Yes Hx Anxiety: Yes Hx Depression: Yes Hx Substance Use: No - SURGICAL HISTORY Hx Surgeries: Yes Hx Coronary Stent: Yes Hx Vascular Surgery: Yes Other/Comment: right fermoral atherectomy and angioplasty done by Dr. Zavala - ANESTHESIA Hx Anesthesia: Yes Hx Anesthesia Reactions: No Hx Malignant Hyperthermia: No Meds Allergies/Adverse Reactions: Allergies Allergy/AdvReac Type Severity Reaction Status Date / Time aspirin AdvReac RASH Verified 10/23/18 20:19 Physical Exam - Constitutional Appears: No Acute Distress - Head Exam Head Exam: NORMAL INSPECTION - Eye Exam Eye Exam: PERRL - ENT Exam ENT Exam: Normal Exam - Neck Exam Neck exam: Positive for: Normal Inspection - Respiratory Exam Respiratory Exam: NORMAL BREATHING PATTERN - Cardiovascular Exam Cardiovascular Exam: REGULAR RHYTHM, Systolic Murmur - GI/Abdominal Exam GI & Abdominal Exam: Normal Bowel Sounds, Soft - Extremities Exam Extremities exam: Positive for: tenderness (L foot and calf) Additional comments: Edema L/E - Back Exam Back exam: NORMAL INSPECTION - Neurological Exam Neurological exam: Alert, Oriented x3 Additional comments: No focal motor/ sensory deficit. - Psychiatric Exam Psychiatric exam: Anxious - Skin Skin Exam: Warm Results - Vital Signs Recent Vital Signs: Last Vital Signs Temp 98.2 F 01/16/19 11:58 Pulse 91 H 01/16/19 11:58 Resp 20 01/16/19 11:58 BP 116/65 01/16/19 11:58 Pulse Ox 97 01/16/19 11:58 reviewed Arie - Labs Result Diagrams: 01/17/19 05:18 01/17/19 05:18 Labs: Laboratory Results - last 24 hr 01/15/19 01/15/19 01/15/19 15:46 15:46 15:46 WBC 9.7 RBC 3.75 L Hgb 10.2 L Hct 31.5 L MCV 84.1 MCH 27.3 MCHC 32.4 L RDW 16.1 H Plt Count 363 MPV 8.0 Neut % (Auto) 47.4 L Lymph % (Auto) 38.8 [place] % (Auto) 10.1 H Eos % (Auto) 3.1 Baso % (Auto) 0.6 Neut # (Auto) 4.6 Lymph # (Auto) 3.8 [place] # (Auto) 1.0 H Eos # (Auto) 0.3 Baso # (Auto) 0.1 PT 11.5 INR 1.0 Sodium 136 Potassium 4.5 Chloride 99 Carbon Dioxide 25 Anion Gap 17 BUN 28 H Creatinine 1.2 Est GFR ( Amer) 53 Est GFR (Non-Af Amer) 43 POC Glucose (mg/dL) Random Glucose 218 H Hemoglobin A1c Calcium 10.0 Total Bilirubin 0.4 AST 38 H D ALT 27 Alkaline Phosphatase 114 Total Protein 8.4 H Albumin 4.7 Globulin 3.8 Albumin/Globulin Ratio 1.2 Triglycerides Cholesterol LDL Cholesterol Direct HDL Cholesterol Thyroxine (T4) TSH 3rd Generation Urine Color Urine Clarity Urine pH Ur Specific [place] Urine Protein Urine Glucose (UA) Urine Ketones Urine Blood Urine Nitrate Urine Bilirubin Urine Urobilinogen Ur Leukocyte Esterase Urine RBC (Auto) Urine Microscopic WBC Ur Squamous Epith Cells Hyaline Casts 01/15/19 01/15/19 01/16/19 17:55 22:47 03:35 WBC RBC Hgb Hct MCV MCH MCHC RDW Plt Count MPV Neut % (Auto) Lymph % (Auto) [place] % (Auto) Eos % (Auto) Baso % (Auto) Neut # (Auto) Lymph # (Auto) [place] # (Auto) Eos # (Auto) Baso # (Auto) PT INR Sodium Potassium Chloride Carbon Dioxide Anion Gap BUN Creatinine Est GFR ( Amer) Est GFR (Non-Af Amer) POC Glucose (mg/dL) 215 H 316 H Random Glucose Hemoglobin A1c Calcium Total Bilirubin AST ALT Alkaline Phosphatase Total Protein Albumin Globulin Albumin/Globulin Ratio Triglycerides Cholesterol LDL Cholesterol Direct HDL Cholesterol Thyroxine (T4) TSH 3rd Generation Urine Color Yellow Urine Clarity Slighty-cloudy Urine pH 6.0 Ur Specific [place] 1.012 Urine Protein 30 Urine Glucose (UA) 150 Urine Ketones Negative Urine Blood Negative Urine Nitrate Negative Urine Bilirubin Negative Urine Urobilinogen 0.2-1.0 Ur Leukocyte Esterase Neg Urine RBC (Auto) 2 Urine Microscopic WBC 1 Ur Squamous Epith Cells 7 H Hyaline Casts 0-2 01/16/19 01/16/19 01/16/19 04:45 04:45 04:45 WBC 7.4 RBC 3.25 L Hgb 9.1 L Hct 27.1 L MCV 83.5 MCH 27.9 MCHC 33.4 RDW 16.3 H Plt Count 304 MPV 8.5 Neut % (Auto) 45.0 L Lymph % (Auto) 37.4 [place] % (Auto) 13.5 H Eos % (Auto) 3.4 Baso % (Auto) 0.7 Neut # (Auto) 3.4 Lymph # (Auto) 2.8 [place] # (Auto) 1.0 H Eos # (Auto) 0.3 Baso # (Auto) 0.0 PT INR Sodium 134 Potassium 4.6 Chloride 99 Carbon Dioxide 26 Anion Gap 14 BUN 34 H Creatinine 1.3 H Est GFR ( Amer) 48 Est GFR (Non-Af Amer) 40 POC Glucose (mg/dL) Random Glucose 286 H Hemoglobin A1c 8.2 H Calcium 9.0 Total Bilirubin 0.3 AST 33 ALT 20 Alkaline Phosphatase 81 Total Protein 7.0 Albumin 3.8 Globulin 3.1 Albumin/Globulin Ratio 1.2 Triglycerides 314 H D Cholesterol 168 LDL Cholesterol Direct 82 HDL Cholesterol 28 L Thyroxine (T4) 6.26 TSH 3rd Generation 3.16 Urine Color Urine Clarity Urine pH Ur Specific [place] Urine Protein Urine Glucose (UA) Urine Ketones Urine Blood Urine Nitrate Urine Bilirubin Urine Urobilinogen Ur Leukocyte Esterase Urine RBC (Auto) Urine Microscopic WBC Ur Squamous Epith Cells Hyaline Casts 01/16/19 01/16/19 05:34 11:03 WBC RBC Hgb Hct MCV MCH MCHC RDW Plt Count MPV Neut % (Auto) Lymph % (Auto) [place] % (Auto) Eos % (Auto) Baso % (Auto) Neut # (Auto) Lymph # (Auto) [place] # (Auto) Eos # (Auto) Baso # (Auto) PT INR Sodium Potassium Chloride Carbon Dioxide Anion Gap BUN Creatinine Est GFR ( Amer) Est GFR (Non-Af Amer) POC Glucose (mg/dL) 279 H 167 H Random Glucose Hemoglobin A1c Calcium Total Bilirubin AST ALT Alkaline Phosphatase Total Protein Albumin Globulin Albumin/Globulin Ratio Triglycerides Cholesterol LDL Cholesterol Direct HDL Cholesterol Thyroxine (T4) TSH 3rd Generation Urine Color Urine Clarity Urine pH Ur Specific [place] Urine Protein Urine Glucose (UA) Urine Ketones Urine Blood Urine Nitrate Urine Bilirubin Urine Urobilinogen Ur Leukocyte Esterase Urine RBC (Auto) Urine Microscopic WBC Ur Squamous Epith Cells Hyaline Casts reviewed J.P. - EKG Data EKG comments: reviewed J.P. - Imaging and Cardiology Chest x-ray Status: Report reviewed by me (Arie) Venous US Status: Report reviewed by me (Arie) Lumbar Spine CT Status: Report reviewed by me Duplex Scan LLE Artery Status: Report reviewed by me Assessment & Plan (1) Acute pain of left lower extremity Status: Acute Priority: High (2) Pain in left foot Status: Acute (3) Pain of left calf Status: Acute (4) Radiculopathy Status: Acute Priority: High (5) PVD (peripheral vascular disease) Status: Chronic Priority: Medium (6) Hyperglycemia due to type 2 diabetes mellitus Status: Acute Priority: High (7) Diabetic neuropathy Status: Chronic Priority: Medium (8) S/P angioplasty Status: Chronic Priority: High (9) Hydronephrosis of left kidney Status: Acute (10) Bladder outlet obstruction Status: Acute (11) HTN (hypertension) Status: Chronic Priority: Medium (12) Moderate COPD (chronic obstructive pulmonary disease) Status: Acute Priority: Medium (13) Dyslipidemia Status: Acute Priority: High (14) Anxiety Status: Chronic Priority: High (15) Osteoarthritis Status: Chronic Priority: Medium - Assessment and Plan (Free Text) Plan: F/U U C-S, Renal U-S, continue with Plavix, Percocet, Duoneb, Xarelto, Protonix, Zetia, Insulin and rest of Tx. PT eval, Cardiology , Pain Management and Urology consult - Date & Time Date: 01/16/19 Time: 11:00
--- NOTE | 2019-01-16 16:22 | US ---
Date of service: 01/16/2019 PROCEDURE: Ultrasound of the Kidneys HISTORY: renal insuff. COMPARISON: None available. TECHNIQUE: Sonogram of the kidneys. FINDINGS: RIGHT KIDNEY: Measures: 10.3 x 5.8 x 5.0 cm. Normal in size, contour-probable mild diffuse increased cortical echogenicity-can be seen with medical renal disease. No stone, solid mass lesion or hydronephrosis visualized. LEFT KIDNEY: Measures: 11.1 x 5.5 x 5.8 cm. Normal in size, contour. Mild probable increased echogenicity of the left renal cortex. Can be seen with medical renal disease. No stone, or solid mass noted. Left collecting system appears full-left hydronephrosis of unknown etiology chronicity inferred. OTHER FINDINGS: Bladder distended-in 2004 110 mL. No intraluminal bladder masses. No bladder wall thickening. The possibly of contiguous concomitant bladder wide neck diverticuli cannot be excluded Postvoid urine volume 1732 mL. No left or right ureteral jet noted. IMPRESSION: Large pre and large postvoid residual urine volume. Outlet obstruction is a consideration. Left hydronephrosis mild-of unknown chronicity and etiology. No right hydronephrosis. No discrete renal masses appreciated. Mild generalized increased bilateral renal cortical echogenicity-can be seen with medical renal disease.
[2019-01-16] MEDS: Insulin Detemir 100 Units/ml Inj SC SCH (21:24)
[2019-01-17 06:09] LABS: BASO # 0.1 K/uL (0.0-0.2); BASO % 0.7 % (0.0-2.0); EOS # 0.4 K/uL (0.0-0.7); EOS % 4.2 % (0.0-4.0); HEMOGLOBIN 9.6 g/dL (12.0-16.0); LYMPH # 2.7 K/uL (1.0-4.3); MEAN CELL VOLUME 84.3 fl (81.0-99.0); MEAN CORPUSCULAR HEMOGLOBIN 27.8 pg (27.0-31.0); MEAN PLATELET VOLUME 8.4 fl (7.2-11.7); MONO # 1.2 K/uL (0.0-0.8); MONO % 13.8 % (0.0-10.0); NEUT # 4.6 K/uL (1.8-7.0); NEUT % 51.3 % (50.0-75.0); NRBC % 0.1 % (0.0-0.0); RBC 3.44 Mil/uL (3.80-5.20); WHITE BLOOD COUNT 8.9 K/uL (4.8-10.8)
[2019-01-17 06:18] LABS: CALCIUM 9.6 mg/dL (8.4-10.2)
[2019-01-17] MEDS: Insulin Lispro (humaLOG) 100 Units/ml Inj SC SCH ×7 (06:32→22:23)
[2019-01-17] MEDS: FLUTICASONE PROPION/SALMETEROL 113-14 IH SCH ×2 (08:53→22:22)
[2019-01-17] MEDS: Multivitamin With Minerals Tab PO SCH (08:59)
[2019-01-17] MEDS: Amylase/Lipase/Protease 5,000 Units ECC PO SCH ×3 (09:00→19:23)
[2019-01-17 13:43] LABS: SQUAMOUS EPITHIAL < 1 /hpf (0-5); URINE BILIRUBIN NEGATIVE (NEGATIVE); URINE BLOOD NEGATIVE (NEGATIVE); URINE CLARITY CLEAR (Clear); URINE COLOR STRAW (YELLOW); URINE GLUCOSE (UA) 150 mg/dL (NEGATIVE); URINE LEUKOCYTE ESTERASE NEG Leu/uL (Negative); URINE PROTEIN NEGATIVE (NEGATIVE); URINE UROBILINOGEN 0.2-1.0 mg/dL (0.2-1.0)
[2019-01-17] MEDS: Oxycodone/Acetaminophen 5/325 mg Tab PO PRN (16:25)
--- NOTE | 2019-01-17 16:52 | CP.PCM.PN ---
Subjective - Date & Time of Evaluation Date of Evaluation: 01/17/19 Time of Evaluation: 11:20 - Subjective Subjective: F/U Pain LLE Mild L-S pain, no tenderness LLE. Objective - Vital Signs/Intake and Output Vital Signs (last 24 hours): Temp Pulse Resp BP Pulse Ox 97.9 F 98 H 18 104/58 L 97 01/17/19 16:47 01/17/19 16:47 01/17/19 16:47 01/17/19 16:47 01/17/19 16:47 Intake and Output: 01/17/19 01/17/19 06:59 18:59 Output Total 1999 Balance -1999 - Medications Medications: Current Medications Albuterol/Ipratropium (Duoneb 3 Mg/0.5 Mg (3 Ml) Ud) 3 ml INH RQ6 PRN PRN Reason: Shortness of Breath Amlodipine Besylate (Norvasc) 10 mg PO DAILY [facility] Last Admin: 01/17/19 09:01 Dose: 10 mg Amylase (Pancrease 92091 U-5000 [id number] U) 5,000 unit PO WM [facility] Last Admin: 01/17/19 12:30 Dose: 5,000 unit Atorvastatin Calcium (Lipitor) 40 mg PO DAILY [facility] Last Admin: 01/17/19 09:01 Dose: 40 mg Clopidogrel Bisulfate (Plavix) 75 mg PO DAILY [facility] Last Admin: 01/17/19 09:00 Dose: 75 mg Dextrose (Dextrose 50% Inj) 0 ml IV STAT PRN; Protocol PRN Reason: Hypoglycemia Protocol Dextrose (Glutose 15) 0 gm PO ONCE PRN; Protocol PRN Reason: Hypoglycemia Protocol Ezetimibe (Zetia) 10 mg PO DAILY [facility] Last Admin: 01/17/19 08:59 Dose: 10 mg Glucagon (Glucagen Diagnostic Kit) 0 mg IM STAT PRN; Protocol PRN Reason: Hypoglycemia Protocol Hydrochlorothiazide (Microzide) 12.5 mg PO DAILY [facility] Last Admin: 01/17/19 09:01 Dose: 12.5 mg Insulin Detemir (Levemir) 30 units SC HS [facility] Last Admin: 01/16/19 21:24 Dose: 30 units Insulin Human Lispro (Humalog) 0 units SC ACHS [facility]; Protocol Last Admin: 01/17/19 12:31 Dose: 2 u Insulin Human Lispro (Humalog) 30 units SC ACTID [facility] Last Admin: 01/17/19 12:30 Dose: 30 u Loratadine (Claritin) 10 mg PO DAILY PRN PRN Reason: Allergy symptoms Losartan Potassium (Cozaar) 100 mg PO DAILY [facility] Last Admin: 01/17/19 08:54 Dose: 100 mg Mirtazapine (Remeron) 15 mg PO HS [facility] Last Admin: 01/16/19 21:11 Dose: 15 mg Montelukast Sodium (Singulair) 10 mg PO HS [facility] Last Admin: 01/16/19 21:11 Dose: 10 mg Multivitamins/Minerals (Therapeutic-M Tab) 1 tab PO DAILY [facility] Last Admin: 01/17/19 08:59 Dose: 1 tab Oxycodone/Acetaminophen (Percocet 5/325 Mg Tab) 2 tab PO Q4 PRN PRN Reason: Pain, severe (8-10) Stop: 01/18/19 21:01 Last Admin: 01/15/19 23:36 Dose: 2 tab Oxycodone/Acetaminophen (Percocet 5/325 Mg Tab) 1 tab PO Q4 PRN PRN Reason: Pain, moderate (4-7) Stop: 01/18/19 17:11 Last Admin: 01/17/19 16:25 Dose: 1 tab Pantoprazole Sodium (Protonix Inj) 40 mg IVP DAILY [facility] Last Admin: 01/17/19 08:59 Dose: 40 mg Pregabalin (Lyrica) 50 mg PO Q12 [facility] Last Admin: 01/17/19 09:03 Dose: 50 mg Rivaroxaban (Xarelto) 10 mg PO DAILY [facility]; Protocol Last Admin: 01/17/19 08:59 Dose: 10 mg - Labs Labs: 01/17/19 05:18 01/17/19 05:18 PT 11.5 Seconds (9.8-13.1) 01/15/19 15:46 INR 1.0 01/15/19 15:46 - Constitutional Appears: No Acute Distress - Head Exam Head Exam: NORMAL INSPECTION - Eye Exam Eye Exam: PERRL - ENT Exam ENT Exam: Normal Exam - Neck Exam Neck Exam: Normal Inspection - Respiratory Exam Respiratory Exam: NORMAL BREATHING PATTERN - Cardiovascular Exam Cardiovascular Exam: REGULAR RHYTHM, Murmur - GI/Abdominal Exam GI & Abdominal Exam: Soft, Normal Bowel Sounds - Exam Additional comments: Pryor Cath - Extremities Exam Extremities Exam: absent: Tenderness Additional comments: RLE edema - Back Exam Back Exam: NORMAL INSPECTION - Neurological Exam Neurological Exam: Alert, Awake, Oriented x3 Additional comments: No focal motor/sensory deficit. - Psychiatric Exam Psychiatric exam: Anxious - Skin Skin Exam: Warm Assessment and Plan (1) Acute pain of left lower extremity Status: Acute (2) Pain in left foot Status: Acute (3) Pain of left calf Status: Acute (4) Radiculopathy Status: Acute (5) PVD (peripheral vascular disease) Status: Chronic (6) Hyperglycemia due to type 2 diabetes mellitus Status: Acute (7) Diabetic neuropathy Status: Chronic (8) S/P angioplasty Status: Chronic (9) Hydronephrosis of left kidney Status: Acute (10) Bladder outlet obstruction Status: Acute (11) HTN (hypertension) Status: Chronic (12) Moderate COPD (chronic obstructive pulmonary disease) Status: Acute (13) Dyslipidemia Status: Acute (14) Anxiety Status: Chronic (15) Osteoarthritis Status: Chronic - Assessment and Plan (Free Text) Plan: Renal U-S: Left Hydronephrosis, continue Percocet, Plavix, Xarelto and rest of Tx, Urology and Pain management consult
--- NOTE | 2019-01-17 18:08 | CP.PCM.PN ---
Subjective - Date & Time of Evaluation Date of Evaluation: 01/17/19 Time of Evaluation: 18:07 - Subjective Subjective: arterial duplex - nl hydronephrosis sx resolved post way insertion Objective - Vital Signs/Intake and Output Vital Signs (last 24 hours): Temp Pulse Resp BP Pulse Ox 97.9 F 98 H 18 104/58 L 97 01/17/19 16:47 01/17/19 16:47 01/17/19 16:47 01/17/19 16:47 01/17/19 16:47 Intake and Output: 01/17/19 01/17/19 06:59 18:59 Output Total 1999 Balance -1999 - Medications Medications: Current Medications Albuterol/Ipratropium (Duoneb 3 Mg/0.5 Mg (3 Ml) Ud) 3 ml INH RQ6 PRN PRN Reason: Shortness of Breath Amlodipine Besylate (Norvasc) 10 mg PO DAILY [facility] Last Admin: 01/17/19 09:01 Dose: 10 mg Amylase (Pancrease 09393 U-5000 U-[id number] U) 5,000 unit PO WM [facility] Last Admin: 01/17/19 12:30 Dose: 5,000 unit Atorvastatin Calcium (Lipitor) 40 mg PO DAILY [facility] Last Admin: 01/17/19 09:01 Dose: 40 mg Clopidogrel Bisulfate (Plavix) 75 mg PO DAILY [facility] Last Admin: 01/17/19 09:00 Dose: 75 mg Dextrose (Dextrose 50% Inj) 0 ml IV STAT PRN; Protocol PRN Reason: Hypoglycemia Protocol Dextrose (Glutose 15) 0 gm PO ONCE PRN; Protocol PRN Reason: Hypoglycemia Protocol Ezetimibe (Zetia) 10 mg PO DAILY [facility] Last Admin: 01/17/19 08:59 Dose: 10 mg Glucagon (Glucagen Diagnostic Kit) 0 mg IM STAT PRN; Protocol PRN Reason: Hypoglycemia Protocol Hydrochlorothiazide (Microzide) 12.5 mg PO DAILY [facility] Last Admin: 01/17/19 09:01 Dose: 12.5 mg Insulin Detemir (Levemir) 30 units SC HS [facility] Last Admin: 01/16/19 21:24 Dose: 30 units Insulin Human Lispro (Humalog) 0 units SC ACHS [facility]; Protocol Last Admin: 01/17/19 17:35 Dose: Not Given Insulin Human Lispro (Humalog) 30 units SC ACTID [facility] Last Admin: 01/17/19 17:35 Dose: Not Given Loratadine (Claritin) 10 mg PO DAILY PRN PRN Reason: Allergy symptoms Losartan Potassium (Cozaar) 100 mg PO DAILY [facility] Last Admin: 01/17/19 08:54 Dose: 100 mg Mirtazapine (Remeron) 15 mg PO HS [facility] Last Admin: 01/16/19 21:11 Dose: 15 mg Montelukast Sodium (Singulair) 10 mg PO HS [facility] Last Admin: 01/16/19 21:11 Dose: 10 mg Multivitamins/Minerals (Therapeutic-M Tab) 1 tab PO DAILY [facility] Last Admin: 01/17/19 08:59 Dose: 1 tab Oxycodone/Acetaminophen (Percocet 5/325 Mg Tab) 2 tab PO Q4 PRN PRN Reason: Pain, severe (8-10) Stop: 01/18/19 21:01 Last Admin: 01/15/19 23:36 Dose: 2 tab Oxycodone/Acetaminophen (Percocet 5/325 Mg Tab) 1 tab PO Q4 PRN PRN Reason: Pain, moderate (4-7) Stop: 01/18/19 17:11 Last Admin: 01/17/19 16:25 Dose: 1 tab Pantoprazole Sodium (Protonix Inj) 40 mg IVP DAILY [facility] Last Admin: 01/17/19 08:59 Dose: 40 mg Pregabalin (Lyrica) 50 mg PO Q12 [facility] Last Admin: 01/17/19 09:03 Dose: 50 mg Rivaroxaban (Xarelto) 10 mg PO DAILY [facility]; Protocol Last Admin: 01/17/19 08:59 Dose: 10 mg - Labs Labs: 01/17/19 05:18 01/17/19 05:18 PT 11.5 Seconds (9.8-13.1) 01/15/19 15:46 INR 1.0 01/15/19 15:46 - Constitutional Appears: Well - Head Exam Head Exam: ATRAUMATIC, NORMAL INSPECTION, NORMOCEPHALIC - Eye Exam Eye Exam: EOMI, Normal appearance, PERRL Pupil Exam: NORMAL ACCOMODATION, PERRL - ENT Exam ENT Exam: Mucous Membranes Moist, Normal Exam - Neck Exam Neck Exam: Full ROM, Normal Inspection. absent: Lymphadenopathy - Respiratory Exam Respiratory Exam: Clear to Ausculation Bilateral, NORMAL BREATHING PATTERN - Cardiovascular Exam Cardiovascular Exam: REGULAR RHYTHM, +S1, +S2. absent: Murmur - GI/Abdominal Exam GI & Abdominal Exam: Soft, Normal Bowel Sounds. absent: Tenderness - Extremities Exam Extremities Exam: Full ROM, Normal Capillary Refill, Normal Inspection. absent: Joint Swelling, Pedal Edema - Back Exam Back Exam: NORMAL INSPECTION - Neurological Exam Neurological Exam: Alert, Awake, CN II-XII Intact, Normal Gait, Oriented x3 - Psychiatric Exam Psychiatric exam: Normal Affect, Normal Mood - Skin Skin Exam: Dry, Intact, Normal Color, Warm Assessment and Plan (1) Leg pain Assessment & Plan: 2' to radiculopathy Status: Acute (2) Radiculopathy Status: Acute (3) PVD (peripheral vascular disease) Status: Chronic (4) HTN (hypertension) Status: Chronic (5) Dyslipidemia Status: Acute (6) Hydronephrosis Status: Acute
[2019-01-17] MEDS: Insulin Detemir 100 Units/ml Inj SC SCH (22:24)
[2019-01-18] MEDS: Oxycodone/Acetaminophen 5/325 mg Tab PO PRN (01:12)
[2019-01-18] MEDS: Insulin Lispro (humaLOG) 100 Units/ml Inj SC SCH ×7 (06:47→21:44)
[2019-01-18] MEDS: FLUTICASONE PROPION/SALMETEROL 113-14 IH SCH ×2 (09:23→21:36)
[2019-01-18] MEDS: Amylase/Lipase/Protease 5,000 Units ECC PO SCH ×4 (09:30→17:33)
[2019-01-18] MEDS: Multivitamin With Minerals Tab PO SCH (09:31)
--- NOTE | 2019-01-18 09:38 | CP.PCM.CON ---
History of Present Illness - History of Present Illness History of Present Illness: urology consult on chart. Imp urine retention,left hydrponephrosis. I have advised way cath and in several days too repeat renal ultrasound and reevaluate left hydronephrosis Past Patient History - Infectious Disease Hx of Infectious Diseases: None - Tetanus Immunizations Tetanus Immunization: Unknown - Past Medical History & Family History Past Medical History?: Yes - Past Social History Smoking Status: Former Smoker Alcohol: None Drugs: Denies Home Situation {Lives}: With Family - CARDIAC Hx Cardiac Disorders: Yes Hx Atrial Fibrillation: Yes Hx Congestive Heart Failure: Yes Hx Hypercholesterolemia: Yes Hx Hypertension: Yes - PULMONARY Hx Respiratory Disorders: Yes Hx Asthma: Yes Hx Chronic Obstructive Pulmonary Disease (COPD): Yes Hx Pneumonia: Yes - NEUROLOGICAL Hx Neurological Disorder: Yes Other/Comment: DM Neuropathy - HEENT Hx HEENT Problems: Yes (Allergic Rhinitis.) - RENAL Hx Chronic Kidney Disease: Yes - ENDOCRINE/METABOLIC Hx Endocrine Disorders: Yes Hx Diabetes Mellitus Type 2: Yes Hx Hypothyroidism: No - HEMATOLOGICAL/ONCOLOGICAL Hx Blood Disorders: Yes Hx Anemia: Yes Hx Human Immunodeficiency Virus (HIV): No - INTEGUMENTARY Hx Dermatological Problems: No - MUSCULOSKELETAL/RHEUMATOLOGICAL Hx Musculoskeletal Disorders: Yes Hx Arthritis: Yes Hx Falls: No Hx Osteoporosis: Yes - GASTROINTESTINAL Hx Gastrointestinal Disorders: Yes Hx Gastroesophageal Reflux: Yes - GENITOURINARY/GYNECOLOGICAL Hx Genitourinary Disorders: No - PSYCHIATRIC Hx Psychophysiologic Disorder: Yes Hx Anxiety: Yes Hx Depression: Yes Hx Substance Use: No - SURGICAL HISTORY Hx Surgeries: Yes Hx Coronary Stent: Yes Hx Vascular Surgery: Yes Other/Comment: right fermoral atherectomy and angioplasty done by Dr. Zavala - ANESTHESIA Hx Anesthesia: Yes Hx Anesthesia Reactions: No Hx Malignant Hyperthermia: No Meds Allergies/Adverse Reactions: Allergies Allergy/AdvReac Type Severity Reaction Status Date / Time aspirin AdvReac RASH Verified 10/23/18 20:19 - Medications Medications: Current Medications Albuterol/Ipratropium (Duoneb 3 Mg/0.5 Mg (3 Ml) Ud) 3 ml INH RQ6 PRN PRN Reason: Shortness of Breath Amlodipine Besylate (Norvasc) 10 mg PO DAILY [facility] Last Admin: 01/17/19 09:01 Dose: 10 mg Amylase (Pancrease [id number] U-5000 [id number] U) 5,000 unit PO WM [facility] Last Admin: 01/17/19 19:23 Dose: 5,000 unit Atorvastatin Calcium (Lipitor) 40 mg PO DAILY [facility] Last Admin: 01/17/19 09:01 Dose: 40 mg Clopidogrel Bisulfate (Plavix) 75 mg PO DAILY [facility] Last Admin: 01/17/19 09:00 Dose: 75 mg Dextrose (Dextrose 50% Inj) 0 ml IV STAT PRN; Protocol PRN Reason: Hypoglycemia Protocol Dextrose (Glutose 15) 0 gm PO ONCE PRN; Protocol PRN Reason: Hypoglycemia Protocol Ezetimibe (Zetia) 10 mg PO DAILY [facility] Last Admin: 01/17/19 08:59 Dose: 10 mg Glucagon (Glucagen Diagnostic Kit) 0 mg IM STAT PRN; Protocol PRN Reason: Hypoglycemia Protocol Hydrochlorothiazide (Microzide) 12.5 mg PO DAILY [facility] Last Admin: 01/17/19 09:01 Dose: 12.5 mg Insulin Detemir (Levemir) 30 units SC [facility] Last Admin: 01/17/19 22:24 Dose: 30 units Insulin Human Lispro (Humalog) 0 units SC ACHS [facility]; Protocol Last Admin: 01/18/19 06:47 Dose: 3 u Insulin Human Lispro (Humalog) 30 units SC ACTID [facility] Last Admin: 01/17/19 17:35 Dose: Not Given Loratadine (Claritin) 10 mg PO DAILY PRN PRN Reason: Allergy symptoms Losartan Potassium (Cozaar) 100 mg PO DAILY [facility] Last Admin: 01/17/19 08:54 Dose: 100 mg Mirtazapine (Remeron) 15 mg PO [facility] Last Admin: 01/17/19 22:20 Dose: 15 mg Montelukast Sodium (Singulair) 10 mg PO [facility] Last Admin: 01/17/19 22:20 Dose: 10 mg Multivitamins/Minerals (Therapeutic-M Tab) 1 tab PO DAILY [facility] Last Admin: 01/17/19 08:59 Dose: 1 tab Oxycodone/Acetaminophen (Percocet 5/325 Mg Tab) 2 tab PO Q4 PRN PRN Reason: Pain, severe (8-10) Stop: 01/18/19 21:01 Last Admin: 01/15/19 23:36 Dose: 2 tab Oxycodone/Acetaminophen (Percocet 5/325 Mg Tab) 1 tab PO Q4 PRN PRN Reason: Pain, moderate (4-7) Stop: 01/18/19 17:11 Last Admin: 01/18/19 01:12 Dose: 1 tab Pantoprazole Sodium (Protonix Inj) 40 mg IVP DAILY [facility] Last Admin: 01/17/19 08:59 Dose: 40 mg Pregabalin (Lyrica) 50 mg PO Q12 [facility] Last Admin: 01/17/19 22:20 Dose: 50 mg Rivaroxaban (Xarelto) 10 mg PO DAILY [facility]; Protocol Last Admin: 01/17/19 08:59 Dose: 10 mg Results - Vital Signs Recent Vital Signs: Last Vital Signs Temp 97.9 F 01/18/19 08:50 Pulse 89 01/18/19 08:50 Resp 20 01/18/19 08:50 BP 127/66 01/18/19 08:50 Pulse Ox 97 01/18/19 08:50 - Labs Result Diagrams: 01/17/19 05:18 01/17/19 05:18 Labs: Laboratory Results - last 24 hr 01/17/19 01/17/19 01/17/19 11:22 13:25 16:14 POC Glucose (mg/dL) 207 H 110 Urine Color Straw Urine Clarity Clear Urine pH 6.0 Ur Specific [place] 1.010 Urine Protein Negative Urine Glucose (UA) 150 Urine Ketones Negative Urine Blood Negative Urine Nitrate Negative Urine Bilirubin Negative Urine Urobilinogen 0.2-1.0 Ur Leukocyte Esterase Neg Urine RBC (Auto) < 1 Ur Squamous Epith Cells < 1 01/17/19 01/18/19 21:38 05:13 POC Glucose (mg/dL) 237 H 252 H Urine Color Urine Clarity Urine pH Ur Specific [place] Urine Protein Urine Glucose (UA) Urine Ketones Urine Blood Urine Nitrate Urine Bilirubin Urine Urobilinogen Ur Leukocyte Esterase Urine RBC (Auto) Ur Squamous Epith Cells
--- NOTE | 2019-01-18 12:04 | CP.PCM.CON ---
History of Present Illness - History of Present Illness History of Present Illness: 78 yo woman w/ PAD, lumbar radiculopathy, now left hydronephrosis, is referred for pain management. Patient has pain in the left leg, likely from a combination of PAD and lumbar radiculopathy. However, patient states that current pain is mild to moderate and intermittent. At home she takes Percocet and Lyrica with good effects. She is comfortable on the home medications and denies side effects from them. She's on anticoagulations and is not a candidate for intervention. Past Patient History - Infectious Disease Hx of Infectious Diseases: None - Tetanus Immunizations Tetanus Immunization: Unknown - Past Medical History & Family History Past Medical History?: Yes - Past Social History Smoking Status: Former Smoker Alcohol: None Drugs: Denies Home Situation {Lives}: With Family - CARDIAC Hx Cardiac Disorders: Yes Hx Atrial Fibrillation: Yes Hx Congestive Heart Failure: Yes Hx Hypercholesterolemia: Yes Hx Hypertension: Yes - PULMONARY Hx Respiratory Disorders: Yes Hx Asthma: Yes Hx Chronic Obstructive Pulmonary Disease (COPD): Yes Hx Pneumonia: Yes - NEUROLOGICAL Hx Neurological Disorder: Yes Other/Comment: DM Neuropathy - HEENT Hx HEENT Problems: Yes (Allergic Rhinitis.) - RENAL Hx Chronic Kidney Disease: Yes - ENDOCRINE/METABOLIC Hx Endocrine Disorders: Yes Hx Diabetes Mellitus Type 2: Yes Hx Hypothyroidism: No - HEMATOLOGICAL/ONCOLOGICAL Hx Blood Disorders: Yes Hx Anemia: Yes Hx Human Immunodeficiency Virus (HIV): No - INTEGUMENTARY Hx Dermatological Problems: No - MUSCULOSKELETAL/RHEUMATOLOGICAL Hx Musculoskeletal Disorders: Yes Hx Arthritis: Yes Hx Falls: No Hx Osteoporosis: Yes - GASTROINTESTINAL Hx Gastrointestinal Disorders: Yes Hx Gastroesophageal Reflux: Yes - GENITOURINARY/GYNECOLOGICAL Hx Genitourinary Disorders: No - PSYCHIATRIC Hx Psychophysiologic Disorder: Yes Hx Anxiety: Yes Hx Depression: Yes Hx Substance Use: No - SURGICAL HISTORY Hx Surgeries: Yes Hx Coronary Stent: Yes Hx Vascular Surgery: Yes Other/Comment: right fermoral atherectomy and angioplasty done by Dr. Zavala - ANESTHESIA Hx Anesthesia: Yes Hx Anesthesia Reactions: No Hx Malignant Hyperthermia: No Meds Allergies/Adverse Reactions: Allergies Allergy/AdvReac Type Severity Reaction Status Date / Time aspirin AdvReac RASH Verified 10/23/18 20:19 - Medications Medications: Current Medications Albuterol/Ipratropium (Duoneb 3 Mg/0.5 Mg (3 Ml) Ud) 3 ml INH RQ6 PRN PRN Reason: Shortness of Breath Amlodipine Besylate (Norvasc) 10 mg PO DAILY [facility] Last Admin: 01/18/19 09:30 Dose: 10 mg Amylase (Pancrease 77807 U-5000 U-[id number] U) 5,000 unit PO WM [facility] Last Admin: 01/18/19 09:30 Dose: 5,000 unit Atorvastatin Calcium (Lipitor) 40 mg PO DAILY [facility] Last Admin: 01/18/19 09:28 Dose: 40 mg Clopidogrel Bisulfate (Plavix) 75 mg PO DAILY [facility] Last Admin: 01/18/19 09:31 Dose: 75 mg Dextrose (Dextrose 50% Inj) 0 ml IV STAT PRN; Protocol PRN Reason: Hypoglycemia Protocol Dextrose (Glutose 15) 0 gm PO ONCE PRN; Protocol PRN Reason: Hypoglycemia Protocol Ezetimibe (Zetia) 10 mg PO DAILY [facility] Last Admin: 01/18/19 09:32 Dose: 10 mg Glucagon (Glucagen Diagnostic Kit) 0 mg IM STAT PRN; Protocol PRN Reason: Hypoglycemia Protocol Hydrochlorothiazide (Microzide) 12.5 mg PO DAILY [facility] Last Admin: 01/18/19 09:29 Dose: 12.5 mg Insulin Detemir (Levemir) 30 units SC HS [facility] Last Admin: 01/17/19 22:24 Dose: 30 units Insulin Human Lispro (Humalog) 0 units SC ACHS [facility]; Protocol Last Admin: 01/18/19 06:47 Dose: 3 u Insulin Human Lispro (Humalog) 30 units SC ACTID [facility] Last Admin: 01/18/19 09:26 Dose: 30 u Loratadine (Claritin) 10 mg PO DAILY PRN PRN Reason: Allergy symptoms Losartan Potassium (Cozaar) 100 mg PO DAILY [facility] Last Admin: 01/18/19 09:25 Dose: 100 mg Mirtazapine (Remeron) 15 mg PO HS [facility] Last Admin: 01/17/19 22:20 Dose: 15 mg Montelukast Sodium (Singulair) 10 mg PO HS [facility] Last Admin: 01/17/19 22:20 Dose: 10 mg Multivitamins/Minerals (Therapeutic-M Tab) 1 tab PO DAILY [facility] Last Admin: 01/18/19 09:31 Dose: 1 tab Oxycodone/Acetaminophen (Percocet 5/325 Mg Tab) 2 tab PO Q4 PRN PRN Reason: Pain, severe (8-10) Stop: 01/18/19 21:01 Last Admin: 01/15/19 23:36 Dose: 2 tab Oxycodone/Acetaminophen (Percocet 5/325 Mg Tab) 1 tab PO Q4 PRN PRN Reason: Pain, moderate (4-7) Stop: 01/18/19 17:11 Last Admin: 01/18/19 01:12 Dose: 1 tab Pantoprazole Sodium (Protonix Inj) 40 mg IVP DAILY [facility] Last Admin: 01/18/19 09:31 Dose: 40 mg Pregabalin (Lyrica) 50 mg PO Q12 [facility] Last Admin: 01/18/19 09:38 Dose: 50 mg Rivaroxaban (Xarelto) 10 mg PO DAILY [facility]; Protocol Last Admin: 01/18/19 09:32 Dose: 10 mg Physical Exam - GI/Abdominal Exam GI & Abdominal Exam: Tenderness - Extremities Exam Extremities exam: Positive for: tenderness - Back Exam Back exam: paraspinal tenderness, vertebral tenderness Results - Vital Signs Recent Vital Signs: Last Vital Signs Temp 97.9 F 01/18/19 08:50 Pulse 89 01/18/19 11:42 Resp 20 01/18/19 08:50 BP 127/66 01/18/19 09:30 Pulse Ox 97 01/18/19 08:50 - Labs Result Diagrams: 01/17/19 05:18 01/17/19 05:18 Labs: Laboratory Results - last 24 hr 01/17/19 01/17/19 01/17/19 13:25 16:14 21:38 POC Glucose (mg/dL) 110 237 H Urine Color Straw Urine Clarity Clear Urine pH 6.0 Ur Specific [place] 1.010 Urine Protein Negative Urine Glucose (UA) 150 Urine Ketones Negative Urine Blood Negative Urine Nitrate Negative Urine Bilirubin Negative Urine Urobilinogen 0.2-1.0 Ur Leukocyte Esterase Neg Urine RBC (Auto) < 1 Ur Squamous Epith Cells < 1 01/18/19 01/18/19 05:13 11:30 POC Glucose (mg/dL) 252 H 207 H Urine Color Urine Clarity Urine pH Ur Specific [place] Urine Protein Urine Glucose (UA) Urine Ketones Urine Blood Urine Nitrate Urine Bilirubin Urine Urobilinogen Ur Leukocyte Esterase Urine RBC (Auto) Ur Squamous Epith Cells Assessment & Plan - Assessment and Plan (Free Text) Assessment: 78 yo woman with pain from PAD, lumbar radiculopathy and hydronephrosis. - continue current regimen - patient is not a candidate for interventions due to anticoagulation
--- NOTE | 2019-01-18 13:34 | CP.PCM.PN ---
Subjective - Date & Time of Evaluation Date of Evaluation: 01/18/19 Time of Evaluation: 13:33 - Subjective Subjective: pt feeling better post way Objective - Vital Signs/Intake and Output Vital Signs (last 24 hours): Temp Pulse Resp BP Pulse Ox 97.7 F 94 H 20 112/59 L 97 01/18/19 12:41 01/18/19 12:41 01/18/19 12:41 01/18/19 12:41 01/18/19 12:41 Intake and Output: 01/18/19 01/18/19 06:59 18:59 Intake Total 300 Output Total 2000 Balance -1700 - Medications Medications: Current Medications Albuterol/Ipratropium (Duoneb 3 Mg/0.5 Mg (3 Ml) Ud) 3 ml INH RQ6 PRN PRN Reason: Shortness of Breath Amlodipine Besylate (Norvasc) 10 mg PO DAILY [facility] Last Admin: 01/18/19 09:30 Dose: 10 mg Amylase (Pancrease [id number] U-5000 U-[id number] U) 5,000 unit PO WM [facility] Last Admin: 01/18/19 12:27 Dose: 5,000 unit Atorvastatin Calcium (Lipitor) 40 mg PO DAILY [facility] Last Admin: 01/18/19 09:28 Dose: 40 mg Clopidogrel Bisulfate (Plavix) 75 mg PO DAILY [facility] Last Admin: 01/18/19 09:31 Dose: 75 mg Dextrose (Dextrose 50% Inj) 0 ml IV STAT PRN; Protocol PRN Reason: Hypoglycemia Protocol Dextrose (Glutose 15) 0 gm PO ONCE PRN; Protocol PRN Reason: Hypoglycemia Protocol Ezetimibe (Zetia) 10 mg PO DAILY [facility] Last Admin: 01/18/19 09:32 Dose: 10 mg Glucagon (Glucagen Diagnostic Kit) 0 mg IM STAT PRN; Protocol PRN Reason: Hypoglycemia Protocol Hydrochlorothiazide (Microzide) 12.5 mg PO DAILY [facility] Last Admin: 01/18/19 09:29 Dose: 12.5 mg Insulin Detemir (Levemir) 30 units SC HS [facility] Last Admin: 01/17/19 22:24 Dose: 30 units Insulin Human Lispro (Humalog) 0 units SC ACHS [facility]; Protocol Last Admin: 01/18/19 12:24 Dose: 2 u Insulin Human Lispro (Humalog) 30 units SC ACTID [facility] Last Admin: 01/18/19 12:25 Dose: 30 u Loratadine (Claritin) 10 mg PO DAILY PRN PRN Reason: Allergy symptoms Losartan Potassium (Cozaar) 100 mg PO DAILY [facility] Last Admin: 01/18/19 09:25 Dose: 100 mg Mirtazapine (Remeron) 15 mg PO HS [facility] Last Admin: 01/17/19 22:20 Dose: 15 mg Montelukast Sodium (Singulair) 10 mg PO HS [facility] Last Admin: 01/17/19 22:20 Dose: 10 mg Multivitamins/Minerals (Therapeutic-M Tab) 1 tab PO DAILY [facility] Last Admin: 01/18/19 09:31 Dose: 1 tab Oxycodone/Acetaminophen (Percocet 5/325 Mg Tab) 2 tab PO Q4 PRN PRN Reason: Pain, severe (8-10) Stop: 01/18/19 21:01 Last Admin: 01/15/19 23:36 Dose: 2 tab Oxycodone/Acetaminophen (Percocet 5/325 Mg Tab) 1 tab PO Q4 PRN PRN Reason: Pain, moderate (4-7) Stop: 01/18/19 17:11 Last Admin: 01/18/19 01:12 Dose: 1 tab Pantoprazole Sodium (Protonix Inj) 40 mg IVP DAILY [facility] Last Admin: 01/18/19 09:31 Dose: 40 mg Pregabalin (Lyrica) 50 mg PO Q12 [facility] Last Admin: 01/18/19 09:38 Dose: 50 mg Rivaroxaban (Xarelto) 10 mg PO DAILY [facility]; Protocol Last Admin: 01/18/19 09:32 Dose: 10 mg - Labs Labs: 01/17/19 05:18 01/17/19 05:18 PT 11.5 Seconds (9.8-13.1) 01/15/19 15:46 INR 1.0 01/15/19 15:46 - Constitutional Appears: Well - Head Exam Head Exam: ATRAUMATIC, NORMAL INSPECTION, NORMOCEPHALIC - Eye Exam Eye Exam: EOMI, Normal appearance, PERRL Pupil Exam: NORMAL ACCOMODATION, PERRL - ENT Exam ENT Exam: Mucous Membranes Moist, Normal Exam - Neck Exam Neck Exam: Full ROM, Normal Inspection. absent: Lymphadenopathy - Respiratory Exam Respiratory Exam: Clear to Ausculation Bilateral, NORMAL BREATHING PATTERN - Cardiovascular Exam Cardiovascular Exam: REGULAR RHYTHM, +S1, +S2. absent: Murmur - GI/Abdominal Exam GI & Abdominal Exam: Soft, Normal Bowel Sounds. absent: Tenderness - Extremities Exam Extremities Exam: Full ROM, Normal Capillary Refill, Normal Inspection. absent: Joint Swelling, Pedal Edema - Back Exam Back Exam: NORMAL INSPECTION - Neurological Exam Neurological Exam: Alert, Awake, CN II-XII Intact, Normal Gait, Oriented x3 - Psychiatric Exam Psychiatric exam: Normal Affect, Normal Mood - Skin Skin Exam: Dry, Intact, Normal Color, Warm Assessment and Plan (1) Leg pain Status: Acute (2) Radiculopathy Status: Acute (3) PVD (peripheral vascular disease) Status: Chronic (4) HTN (hypertension) Status: Chronic (5) Dyslipidemia Status: Acute (6) Hydronephrosis Status: Acute
--- NOTE | 2019-01-18 13:54 | CP.PCM.PN ---
Subjective - Date & Time of Evaluation Date of Evaluation: 01/18/19 Time of Evaluation: 14:00 - Subjective Subjective: F/U Pain LLE No c/o of pain in LLE, no L-S pain. Objective - Vital Signs/Intake and Output Vital Signs (last 24 hours): Temp Pulse Resp BP Pulse Ox 97.7 F 94 H 20 112/59 L 97 01/18/19 12:41 01/18/19 12:41 01/18/19 12:41 01/18/19 12:41 01/18/19 12:41 Intake and Output: 01/18/19 01/18/19 06:59 18:59 Intake Total 300 Output Total 2000 Balance -1700 - Medications Medications: Current Medications Albuterol/Ipratropium (Duoneb 3 Mg/0.5 Mg (3 Ml) Ud) 3 ml INH RQ6 PRN PRN Reason: Shortness of Breath Amlodipine Besylate (Norvasc) 10 mg PO DAILY [facility] Last Admin: 01/18/19 09:30 Dose: 10 mg Amylase (Pancrease [id number] U-5000 U-[id number] U) 5,000 unit PO WM [facility] Last Admin: 01/18/19 12:27 Dose: 5,000 unit Atorvastatin Calcium (Lipitor) 40 mg PO DAILY [facility] Last Admin: 01/18/19 09:28 Dose: 40 mg Clopidogrel Bisulfate (Plavix) 75 mg PO DAILY [facility] Last Admin: 01/18/19 09:31 Dose: 75 mg Dextrose (Dextrose 50% Inj) 0 ml IV STAT PRN; Protocol PRN Reason: Hypoglycemia Protocol Dextrose (Glutose 15) 0 gm PO ONCE PRN; Protocol PRN Reason: Hypoglycemia Protocol Ezetimibe (Zetia) 10 mg PO DAILY [facility] Last Admin: 01/18/19 09:32 Dose: 10 mg Glucagon (Glucagen Diagnostic Kit) 0 mg IM STAT PRN; Protocol PRN Reason: Hypoglycemia Protocol Hydrochlorothiazide (Microzide) 12.5 mg PO DAILY [facility] Last Admin: 01/18/19 09:29 Dose: 12.5 mg Insulin Detemir (Levemir) 30 units SC HS [facility] Last Admin: 01/17/19 22:24 Dose: 30 units Insulin Human Lispro (Humalog) 0 units SC [facility]; Protocol Last Admin: 01/18/19 12:24 Dose: 2 u Insulin Human Lispro (Humalog) 30 units SC ACTID [facility] Last Admin: 01/18/19 12:25 Dose: 30 u Loratadine (Claritin) 10 mg PO DAILY PRN PRN Reason: Allergy symptoms Losartan Potassium (Cozaar) 100 mg PO DAILY [facility] Last Admin: 01/18/19 09:25 Dose: 100 mg Mirtazapine (Remeron) 15 mg PO [facility] Last Admin: 01/17/19 22:20 Dose: 15 mg Montelukast Sodium (Singulair) 10 mg PO HS [facility] Last Admin: 01/17/19 22:20 Dose: 10 mg Multivitamins/Minerals (Therapeutic-M Tab) 1 tab PO DAILY [facility] Last Admin: 01/18/19 09:31 Dose: 1 tab Oxycodone/Acetaminophen (Percocet 5/325 Mg Tab) 2 tab PO Q4 PRN PRN Reason: Pain, severe (8-10) Stop: 01/18/19 21:01 Last Admin: 01/15/19 23:36 Dose: 2 tab Oxycodone/Acetaminophen (Percocet 5/325 Mg Tab) 1 tab PO Q4 PRN PRN Reason: Pain, moderate (4-7) Stop: 01/18/19 17:11 Last Admin: 01/18/19 01:12 Dose: 1 tab Pantoprazole Sodium (Protonix Inj) 40 mg IVP DAILY [facility] Last Admin: 01/18/19 09:31 Dose: 40 mg Pregabalin (Lyrica) 50 mg PO Q12 [facility] Last Admin: 01/18/19 09:38 Dose: 50 mg Rivaroxaban (Xarelto) 10 mg PO DAILY [facility]; Protocol Last Admin: 01/18/19 09:32 Dose: 10 mg - Labs Labs: 01/17/19 05:18 01/17/19 05:18 PT 11.5 Seconds (9.8-13.1) 01/15/19 15:46 INR 1.0 01/15/19 15:46 - Constitutional Appears: No Acute Distress - Head Exam Head Exam: NORMAL INSPECTION - Eye Exam Eye Exam: PERRL - ENT Exam ENT Exam: Normal Exam - Neck Exam Neck Exam: Normal Inspection - Respiratory Exam Respiratory Exam: Decreased Breath Sounds (at bases) - Cardiovascular Exam Cardiovascular Exam: REGULAR RHYTHM, Murmur (systolic) - GI/Abdominal Exam GI & Abdominal Exam: Soft, Normal Bowel Sounds - Exam Additional comments: Pryor Cath - Extremities Exam Additional comments: Edema LLE - Back Exam Back Exam: NORMAL INSPECTION - Neurological Exam Neurological Exam: Alert, Oriented x3 Additional comments: No focal motor/sensory deficit. - Psychiatric Exam Psychiatric exam: Anxious - Skin Skin Exam: Warm Assessment and Plan (1) Acute pain of left lower extremity Status: Acute (2) Pain in left foot Status: Acute (3) Pain of left calf Status: Acute (4) Radiculopathy Status: Acute (5) PVD (peripheral vascular disease) Status: Chronic (6) Hyperglycemia due to type 2 diabetes mellitus Status: Acute (7) Diabetic neuropathy Status: Chronic (8) S/P angioplasty Status: Chronic (9) Hydronephrosis of left kidney Status: Acute (10) Bladder outlet obstruction Status: Acute (11) HTN (hypertension) Status: Chronic (12) Moderate COPD (chronic obstructive pulmonary disease) Status: Acute (13) Dyslipidemia Status: Acute (14) Anxiety Status: Chronic (15) Osteoarthritis Status: Chronic - Assessment and Plan (Free Text) Plan: Urology to continue Pryor Cath until Monday, continue Percocet, Lyrica, Plavix, Insulin, Lipitor, Remeron, Xarelto, Singulair and rest of Tx.
--- NOTE | 2019-01-18 17:25 | CON ---
DATE: 01/17/2019 HISTORY OF PRESENT ILLNESS: This is a 78-year-old female I was called to evaluate because of urinary retention. The patient was admitted to the hospital and apparently change of some laboratory findings. She has current BUN and creatinine of 35 and 1.3. She might have a history of some level of renal insufficiency. Her GFR at this time is 40. She does suffer of diabetes and her presenting sugar was 169. The patient had a renal ultrasound performed upon admission and the renal ultrasound indicates the presence of a left hydronephrosis without evidence of calculus, but more interestingly at the level of the bladder, she has a very distended bladder with a postvoid residual that was determined to be in excess of 1700 mL. There is a suspicion that she might have a bladder diverticulum, but that could not be clearly identified. At this time, the patient is in no acute pain. I did speak with the hospitalist covering this patient and suggested that a Pryor catheter be inserted at least for several days to decompress the bladder. Once this would be done, I would suggest them to repeat the renal ultrasound to see if the reason for the left hydronephrosis could be severe bladder outlet obstruction and see if the ultrasound shows spontaneous resolution; if not, probably then cystoscopy with the ureteroscopy and retrograde might be indicated. For now, we will manage the patient conservatively, but we will follow up and see that these suggestions are followed through. Aryan Puente MD
[2019-01-18] MEDS: Insulin Detemir 100 Units/ml Inj SC SCH (21:39)
[2019-01-18] MEDS ORDERED: Oxycodone/Acetaminophen 5/325 mg Tab PO PRN ×2 (22:32→22:34)
[2019-01-19] MEDS: Insulin Lispro (humaLOG) 100 Units/ml Inj SC SCH ×7 (06:59→21:49)
[2019-01-19] MEDS: FLUTICASONE PROPION/SALMETEROL 113-14 IH SCH ×2 (08:46→20:51)
[2019-01-19] MEDS: Amylase/Lipase/Protease 5,000 Units ECC PO SCH ×3 (08:52→17:29)
[2019-01-19] MEDS: Multivitamin With Minerals Tab PO SCH (08:55)
--- NOTE | 2019-01-19 15:24 | CP.PCM.PN ---
Subjective - Date & Time of Evaluation Date of Evaluation: 01/19/19 Time of Evaluation: 12:20 - Subjective Subjective: F/U Pain LLE No c/o of pain in LLE/L-S. Objective - Vital Signs/Intake and Output Vital Signs (last 24 hours): Temp Pulse Resp BP Pulse Ox 97.9 F 92 H 20 116/66 94 L 01/19/19 11:59 01/19/19 11:59 01/19/19 11:59 01/19/19 11:59 01/19/19 11:59 Intake and Output: 01/19/19 01/19/19 06:59 18:59 Intake Total 400 Output Total 2000 Balance -1600 - Medications Medications: Current Medications Albuterol/Ipratropium (Duoneb 3 Mg/0.5 Mg (3 Ml) Ud) 3 ml INH RQ6 PRN PRN Reason: Shortness of Breath Amlodipine Besylate (Norvasc) 10 mg PO DAILY [facility] Last Admin: 01/19/19 08:51 Dose: 10 mg Amylase (Pancrease [id number] [id number] [id number] U) 5,000 unit PO WM [facility] Last Admin: 01/19/19 12:18 Dose: 5,000 unit Atorvastatin Calcium (Lipitor) 40 mg PO DAILY [facility] Last Admin: 01/19/19 08:51 Dose: 40 mg Clopidogrel Bisulfate (Plavix) 75 mg PO DAILY [facility] Last Admin: 01/19/19 08:52 Dose: 75 mg Dextrose (Dextrose 50% Inj) 0 ml IV STAT PRN; Protocol PRN Reason: Hypoglycemia Protocol Last Admin: 01/19/19 12:14 Dose: 50 ml Dextrose (Glutose 15) 0 gm PO ONCE PRN; Protocol PRN Reason: Hypoglycemia Protocol Ezetimibe (Zetia) 10 mg PO DAILY [facility] Last Admin: 01/19/19 08:56 Dose: 10 mg Glucagon (Glucagen Diagnostic Kit) 0 mg IM STAT PRN; Protocol PRN Reason: Hypoglycemia Protocol Hydrochlorothiazide (Microzide) 12.5 mg PO DAILY [facility] Last Admin: 01/19/19 08:51 Dose: 12.5 mg Insulin Detemir (Levemir) 30 units SC [facility] Last Admin: 01/18/19 21:39 Dose: 30 units Insulin Human Lispro (Humalog) 0 units SC [facility]; Protocol Last Admin: 01/19/19 12:17 Dose: Not Given Insulin Human Lispro (Humalog) 12 units SC ACTID [facility] Loratadine (Claritin) 10 mg PO DAILY PRN PRN Reason: Allergy symptoms Losartan Potassium (Cozaar) 100 mg PO DAILY [facility] Last Admin: 01/19/19 08:48 Dose: 100 mg Mirtazapine (Remeron) 15 mg PO HS [facility] Last Admin: 01/18/19 21:37 Dose: 15 mg Montelukast Sodium (Singulair) 10 mg PO HS [facility] Last Admin: 01/18/19 21:36 Dose: 10 mg Multivitamins/Minerals (Therapeutic-M Tab) 1 tab PO DAILY [facility] Last Admin: 01/19/19 08:55 Dose: 1 tab Oxycodone/Acetaminophen (Percocet 5/325 Mg Tab) 2 tab PO Q4 PRN PRN Reason: Pain, severe (8-10) Stop: 01/21/19 22:33 Oxycodone/Acetaminophen (Percocet 5/325 Mg Tab) 1 tab PO Q4 PRN PRN Reason: Pain, moderate (4-7) Stop: 01/21/19 22:35 Last Admin: 01/18/19 22:50 Dose: 1 tab Pantoprazole Sodium (Protonix Inj) 40 mg IVP DAILY [facility] Last Admin: 01/19/19 08:52 Dose: 40 mg Pregabalin (Lyrica) 50 mg PO Q12 [facility] Last Admin: 01/19/19 08:58 Dose: 50 mg Rivaroxaban (Xarelto) 10 mg PO DAILY [facility]; Protocol Last Admin: 01/19/19 08:55 Dose: 10 mg - Labs Labs: 01/17/19 05:18 01/17/19 05:18 PT 11.5 Seconds (9.8-13.1) 01/15/19 15:46 INR 1.0 01/15/19 15:46 - Constitutional Appears: No Acute Distress - Head Exam Head Exam: NORMAL INSPECTION - Eye Exam Eye Exam: PERRL - ENT Exam ENT Exam: Normal Exam - Neck Exam Neck Exam: Normal Inspection - Respiratory Exam Respiratory Exam: NORMAL BREATHING PATTERN - Cardiovascular Exam Cardiovascular Exam: REGULAR RHYTHM, Murmur (systolic) - GI/Abdominal Exam GI & Abdominal Exam: Soft, Hypoactive Bowel Sounds - Exam Additional comments: Pryor Cath - Extremities Exam Additional comments: Edema LLE - Back Exam Back Exam: NORMAL INSPECTION - Neurological Exam Neurological Exam: Alert, Oriented x3 Additional comments: No focal motor/sensory deficit. - Psychiatric Exam Psychiatric exam: Anxious - Skin Skin Exam: Warm Assessment and Plan (1) Acute pain of left lower extremity Status: Acute (2) Pain in left foot Status: Acute (3) Pain of left calf Status: Acute (4) Radiculopathy Status: Acute (5) PVD (peripheral vascular disease) Status: Chronic (6) Hyperglycemia due to type 2 diabetes mellitus Status: Acute (7) Diabetic neuropathy Status: Chronic (8) S/P angioplasty Status: Chronic (9) Hydronephrosis of left kidney Status: Acute (10) Bladder outlet obstruction Status: Acute (11) HTN (hypertension) Status: Chronic (12) Moderate COPD (chronic obstructive pulmonary disease) Status: Acute (13) Dyslipidemia Status: Acute (14) Anxiety Status: Chronic (15) Osteoarthritis Status: Chronic - Assessment and Plan (Free Text) Plan: Continue Pryor Cath until Monday and F/U Urology.
[2019-01-19] MEDS: Insulin Detemir 100 Units/ml Inj SC SCH (21:50)
[2019-01-20] MEDS: FLUTICASONE PROPION/SALMETEROL 113-14 IH SCH ×2 (08:44→21:26)
[2019-01-20] MEDS: Insulin Lispro (humaLOG) 100 Units/ml Inj SC SCH ×7 (08:47→21:30)
[2019-01-20] MEDS: Amylase/Lipase/Protease 5,000 Units ECC PO SCH ×3 (08:50→17:29)
[2019-01-20] MEDS: Multivitamin With Minerals Tab PO SCH (08:53)
--- NOTE | 2019-01-20 15:26 | CP.PCM.PN ---
Subjective - Date & Time of Evaluation Date of Evaluation: 01/20/19 Time of Evaluation: 12:40 - Subjective Subjective: F/U LLE pain No A./D, NC, no suprapubic, no pain LLE, no SOB. Objective - Vital Signs/Intake and Output Vital Signs (last 24 hours): Temp Pulse Resp BP Pulse Ox 98.3 F 100 H 18 125/64 97 01/20/19 08:00 01/20/19 08:49 01/20/19 08:00 01/20/19 08:49 01/20/19 08:00 Intake and Output: 01/20/19 01/20/19 06:59 18:59 Intake Total 500 Output Total 2200 Balance -1700 - Medications Medications: Current Medications Albuterol/Ipratropium (Duoneb 3 Mg/0.5 Mg (3 Ml) Ud) 3 ml INH RQ6 PRN PRN Reason: Shortness of Breath Amlodipine Besylate (Norvasc) 10 mg PO DAILY [facility] Last Admin: 01/20/19 08:49 Dose: 10 mg Amylase (Pancrease [id number] U-5000 U-[id number] U) 5,000 unit PO WM [facility] Last Admin: 01/20/19 12:24 Dose: 5,000 unit Atorvastatin Calcium (Lipitor) 40 mg PO DAILY [facility] Last Admin: 01/20/19 08:48 Dose: 40 mg Clopidogrel Bisulfate (Plavix) 75 mg PO DAILY [facility] Last Admin: 01/20/19 08:50 Dose: 75 mg Dextrose (Dextrose 50% Inj) 0 ml IV STAT PRN; Protocol PRN Reason: Hypoglycemia Protocol Last Admin: 01/19/19 12:14 Dose: 50 ml Dextrose (Glutose 15) 0 gm PO ONCE PRN; Protocol PRN Reason: Hypoglycemia Protocol Ezetimibe (Zetia) 10 mg PO DAILY [facility] Last Admin: 01/20/19 08:54 Dose: 10 mg Glucagon (Glucagen Diagnostic Kit) 0 mg IM STAT PRN; Protocol PRN Reason: Hypoglycemia Protocol Hydrochlorothiazide (Microzide) 12.5 mg PO DAILY [facility] Last Admin: 01/20/19 08:49 Dose: 12.5 mg Insulin Detemir (Levemir) 30 units SC HS [facility] Last Admin: 01/19/19 21:50 Dose: 30 units Insulin Human Lispro (Humalog) 0 units SC ACHS [facility]; Protocol Last Admin: 01/20/19 12:23 Dose: 5 u Insulin Human Lispro (Humalog) 12 units SC ACTID [facility] Last Admin: 01/20/19 12:23 Dose: 12 units Loratadine (Claritin) 10 mg PO DAILY PRN PRN Reason: Allergy symptoms Losartan Potassium (Cozaar) 100 mg PO DAILY [facility] Last Admin: 01/20/19 08:46 Dose: 100 mg Mirtazapine (Remeron) 15 mg PO HS [facility] Last Admin: 01/19/19 21:50 Dose: 15 mg Montelukast Sodium (Singulair) 10 mg PO HS [facility] Last Admin: 01/19/19 21:50 Dose: 10 mg Multivitamins/Minerals (Therapeutic-M Tab) 1 tab PO DAILY [facility] Last Admin: 01/20/19 08:53 Dose: 1 tab Oxycodone/Acetaminophen (Percocet 5/325 Mg Tab) 2 tab PO Q4 PRN PRN Reason: Pain, severe (8-10) Stop: 01/21/19 22:33 Oxycodone/Acetaminophen (Percocet 5/325 Mg Tab) 1 tab PO Q4 PRN PRN Reason: Pain, moderate (4-7) Stop: 01/21/19 22:35 Last Admin: 01/18/19 22:50 Dose: 1 tab Pantoprazole Sodium (Protonix Inj) 40 mg IVP DAILY [facility] Last Admin: 01/20/19 08:50 Dose: 40 mg Rivaroxaban (Xarelto) 10 mg PO DAILY [facility]; Protocol Last Admin: 01/20/19 08:53 Dose: 10 mg - Labs Labs: 01/17/19 05:18 01/17/19 05:18 PT 11.5 Seconds (9.8-13.1) 01/15/19 15:46 INR 1.0 01/15/19 15:46 - Constitutional Appears: No Acute Distress - Head Exam Head Exam: NORMAL INSPECTION - Eye Exam Eye Exam: PERRL - ENT Exam ENT Exam: Normal Exam - Neck Exam Neck Exam: Normal Inspection - Respiratory Exam Respiratory Exam: NORMAL BREATHING PATTERN - Cardiovascular Exam Cardiovascular Exam: REGULAR RHYTHM, Murmur (systolic) - GI/Abdominal Exam GI & Abdominal Exam: Soft, Normal Bowel Sounds - Exam Additional comments: Pryor Cath - Extremities Exam Extremities Exam: Normal Inspection - Back Exam Back Exam: NORMAL INSPECTION - Neurological Exam Neurological Exam: Alert, Oriented x3 Additional comments: No focal motor/sensory deficit. - Psychiatric Exam Psychiatric exam: Anxious - Skin Skin Exam: Warm Assessment and Plan (1) Acute pain of left lower extremity Status: Acute (2) Pain in left foot Status: Acute (3) Pain of left calf Status: Acute (4) Radiculopathy Status: Acute (5) PVD (peripheral vascular disease) Status: Chronic (6) Hyperglycemia due to type 2 diabetes mellitus Status: Acute (7) Diabetic neuropathy Status: Chronic (8) S/P angioplasty Status: Chronic (9) Hydronephrosis of left kidney Status: Acute (10) Bladder outlet obstruction Status: Acute (11) HTN (hypertension) Status: Chronic (12) Moderate COPD (chronic obstructive pulmonary disease) Status: Acute (13) Dyslipidemia Status: Acute (14) Anxiety Status: Chronic (15) Osteoarthritis Status: Chronic - Assessment and Plan (Free Text) Plan: Continue Pryor until tomorrow, f/u Urology
[2019-01-20] MEDS: Insulin Detemir 100 Units/ml Inj SC SCH (21:29)
[2019-01-21] MEDS: Insulin Lispro (humaLOG) 100 Units/ml Inj SC SCH ×7 (06:29→21:47)
[2019-01-21] MEDS: FLUTICASONE PROPION/SALMETEROL 113-14 IH SCH ×2 (08:44→21:45)
[2019-01-21] MEDS: Amylase/Lipase/Protease 5,000 Units ECC PO SCH ×3 (08:51→18:28)
[2019-01-21] MEDS: Multivitamin With Minerals Tab PO SCH (08:52)
--- NOTE | 2019-01-21 09:38 | CP.PCM.PN ---
Subjective - Date & Time of Evaluation Date of Evaluation: 01/21/19 Time of Evaluation: 09:37 - Subjective Subjective: leg pain improved urinary retention ?? Objective - Vital Signs/Intake and Output Vital Signs (last 24 hours): Temp Pulse Resp BP Pulse Ox 98.1 F 98 H 20 130/65 98 01/21/19 08:14 01/21/19 08:51 01/21/19 08:14 01/21/19 08:51 01/21/19 08:14 Intake and Output: 01/21/19 01/21/19 06:59 18:59 Intake Total 240 Output Total 2250 Balance -2009 - Medications Medications: Current Medications Albuterol/Ipratropium (Duoneb 3 Mg/0.5 Mg (3 Ml) Ud) 3 ml INH RQ6 PRN PRN Reason: Shortness of Breath Amlodipine Besylate (Norvasc) 10 mg PO DAILY [facility] Last Admin: 01/21/19 08:51 Dose: 10 mg Amylase (Pancrease [id number] U-5000 U-[id number] U) 5,000 unit PO WM [facility] Last Admin: 01/21/19 08:51 Dose: 5,000 unit Atorvastatin Calcium (Lipitor) 40 mg PO DAILY [facility] Last Admin: 01/21/19 08:50 Dose: 40 mg Clopidogrel Bisulfate (Plavix) 75 mg PO DAILY [facility] Last Admin: 01/21/19 08:52 Dose: 75 mg Dextrose (Dextrose 50% Inj) 0 ml IV STAT PRN; Protocol PRN Reason: Hypoglycemia Protocol Last Admin: 01/19/19 12:14 Dose: 50 ml Dextrose (Glutose 15) 0 gm PO ONCE PRN; Protocol PRN Reason: Hypoglycemia Protocol Ezetimibe (Zetia) 10 mg PO DAILY [facility] Last Admin: 01/21/19 08:53 Dose: 10 mg Glucagon (Glucagen Diagnostic Kit) 0 mg IM STAT PRN; Protocol PRN Reason: Hypoglycemia Protocol Hydrochlorothiazide (Microzide) 12.5 mg PO DAILY [facility] Last Admin: 01/21/19 08:51 Dose: 12.5 mg Insulin Detemir (Levemir) 30 units SC HS [facility] Last Admin: 01/20/19 21:29 Dose: 30 units Insulin Human Lispro (Humalog) 0 units SC [facility]; Protocol Last Admin: 01/21/19 06:29 Dose: 3 u Insulin Human Lispro (Humalog) 12 units SC ACTID [facility] Last Admin: 01/21/19 08:47 Dose: 12 units Loratadine (Claritin) 10 mg PO DAILY PRN PRN Reason: Allergy symptoms Losartan Potassium (Cozaar) 100 mg PO DAILY [facility] Last Admin: 01/21/19 08:45 Dose: 100 mg Mirtazapine (Remeron) 15 mg PO [facility] Last Admin: 01/20/19 21:27 Dose: 15 mg Montelukast Sodium (Singulair) 10 mg PO HS [facility] Last Admin: 01/20/19 21:27 Dose: 10 mg Multivitamins/Minerals (Therapeutic-M Tab) 1 tab PO DAILY [facility] Last Admin: 01/21/19 08:52 Dose: 1 tab Oxycodone/Acetaminophen (Percocet 5/325 Mg Tab) 2 tab PO Q4 PRN PRN Reason: Pain, severe (8-10) Stop: 01/21/19 22:33 Oxycodone/Acetaminophen (Percocet 5/325 Mg Tab) 1 tab PO Q4 PRN PRN Reason: Pain, moderate (4-7) Stop: 01/21/19 22:35 Last Admin: 01/18/19 22:50 Dose: 1 tab Pantoprazole Sodium (Protonix Ec Tab) 40 mg PO DAILY [facility] Pregabalin (Lyrica) 50 mg PO Q12 [facility] Rivaroxaban (Xarelto) 10 mg PO DAILY [facility]; Protocol Last Admin: 01/21/19 08:53 Dose: 10 mg Zolpidem Tartrate (Ambien) 10 mg PO [facility] Last Admin: 01/20/19 23:00 Dose: 10 mg - Labs Labs: 01/17/19 05:18 01/17/19 05:18 PT 11.5 Seconds (9.8-13.1) 01/15/19 15:46 INR 1.0 01/15/19 15:46 - Constitutional Appears: Well - Head Exam Head Exam: ATRAUMATIC, NORMAL INSPECTION, NORMOCEPHALIC - Eye Exam Eye Exam: EOMI, Normal appearance, PERRL Pupil Exam: NORMAL ACCOMODATION, PERRL - ENT Exam ENT Exam: Mucous Membranes Moist, Normal Exam - Neck Exam Neck Exam: Full ROM, Normal Inspection. absent: Lymphadenopathy - Respiratory Exam Respiratory Exam: Clear to Ausculation Bilateral, NORMAL BREATHING PATTERN - Cardiovascular Exam Cardiovascular Exam: REGULAR RHYTHM, +S1, +S2. absent: Murmur - GI/Abdominal Exam GI & Abdominal Exam: Soft, Normal Bowel Sounds. absent: Tenderness - Extremities Exam Extremities Exam: Full ROM, Normal Capillary Refill, Normal Inspection. absent: Joint Swelling, Pedal Edema - Back Exam Back Exam: NORMAL INSPECTION - Neurological Exam Neurological Exam: Alert, Awake, CN II-XII Intact, Normal Gait, Oriented x3 - Psychiatric Exam Psychiatric exam: Normal Affect, Normal Mood - Skin Skin Exam: Dry, Intact, Normal Color, Warm Assessment and Plan (1) Leg pain Status: Acute (2) Radiculopathy Status: Acute (3) PVD (peripheral vascular disease) Status: Chronic (4) HTN (hypertension) Status: Chronic (5) Dyslipidemia Status: Acute (6) Hydronephrosis Status: Acute
[2019-01-21 10:35] LABS: HEMOGLOBIN 10.1 g/dL (12.0-16.0); MEAN CORPUSCULAR HEMOGLOBIN 27.4 pg (27.0-31.0); MEAN CORPUSCULAR HGB CONC 32.7 g/dL (33.0-37.0); RBC 3.69 Mil/uL (3.80-5.20); WHITE BLOOD COUNT 10.1 K/uL (4.8-10.8)
[2019-01-21 10:58] LABS: CALCIUM 9.7 mg/dL (8.4-10.2)
--- NOTE | 2019-01-21 12:35 | US ---
Date of service: 01/21/2019 PROCEDURE: Ultrasound of the Kidneys HISTORY: reevaluate hydronephrosis COMPARISON: 01/16/2019. Renal ultrasound.. TECHNIQUE: Sonogram of the kidneys. FINDINGS: RIGHT KIDNEY: Measures: 5.6 x 11 cm. Normal in size, contour and echogenicity. No stone, solid mass lesion or hydronephrosis visualized. LEFT KIDNEY: Measures: 0.5 x 11.3 cm. Normal in size, contour and echogenicity. No stone, solid mass lesion or hydronephrosis visualized. OTHER FINDINGS: Pryor catheter identified in the urinary bladder. IMPRESSION: Unremarkable renal sonogram. Resolution of previously identified left hydronephrosis.
[2019-01-21] MEDS: Pantoprazole 40 mg EC Tab PO SCH (13:20)
--- NOTE | 2019-01-21 14:43 | CP.PCM.PN ---
Subjective - Date & Time of Evaluation Date of Evaluation: 01/21/19 Time of Evaluation: 12:40 - Subjective Subjective: F/U LLE pain No LLEpain, no suprapubic pain Objective - Vital Signs/Intake and Output Vital Signs (last 24 hours): Temp Pulse Resp BP Pulse Ox 98 F 96 H 20 107/64 100 01/21/19 12:25 01/21/19 12:25 01/21/19 12:25 01/21/19 12:25 01/21/19 12:25 Intake and Output: 01/21/19 01/21/19 06:59 18:59 Intake Total 240 Output Total 2250 -2009 - Medications Medications: Current Medications Albuterol/Ipratropium (Duoneb 3 Mg/0.5 Mg (3 Ml) Ud) 3 ml INH RQ6 PRN PRN Reason: Shortness of Breath Amlodipine Besylate (Norvasc) 10 mg PO DAILY [facility] Last Admin: 01/21/19 08:51 Dose: 10 mg Amylase (Pancrease [id number] U-5000 U-[id number] U) 5,000 unit PO WM [facility] Last Admin: 01/21/19 13:20 Dose: 5,000 unit Atorvastatin Calcium (Lipitor) 40 mg PO DAILY [facility] Last Admin: 01/21/19 08:50 Dose: 40 mg Clopidogrel Bisulfate (Plavix) 75 mg PO DAILY [facility] Last Admin: 01/21/19 08:52 Dose: 75 mg Dextrose (Dextrose 50% Inj) 0 ml IV STAT PRN; Protocol PRN Reason: Hypoglycemia Protocol Last Admin: 01/19/19 12:14 Dose: 50 ml Dextrose (Glutose 15) 0 gm PO ONCE PRN; Protocol PRN Reason: Hypoglycemia Protocol Ezetimibe (Zetia) 10 mg PO DAILY [facility] Last Admin: 01/21/19 08:53 Dose: 10 mg Glucagon (Glucagen Diagnostic Kit) 0 mg IM STAT PRN; Protocol PRN Reason: Hypoglycemia Protocol Hydrochlorothiazide (Microzide) 12.5 mg PO DAILY [facility] Last Admin: 01/21/19 08:51 Dose: 12.5 mg Insulin Detemir (Levemir) 30 units SC HS [facility] Last Admin: 01/20/19 21:29 Dose: 30 units Insulin Human Lispro (Humalog) 0 units SC ACHS [facility]; Protocol Last Admin: 01/21/19 13:17 Dose: 4 u Insulin Human Lispro (Humalog) 12 units SC ACTID [facility] Last Admin: 01/21/19 13:18 Dose: 12 units Loratadine (Claritin) 10 mg PO DAILY PRN PRN Reason: Allergy symptoms Losartan Potassium (Cozaar) 100 mg PO DAILY [facility] Last Admin: 01/21/19 08:45 Dose: 100 mg Mirtazapine (Remeron) 15 mg PO [facility] Last Admin: 01/20/19 21:27 Dose: 15 mg Montelukast Sodium (Singulair) 10 mg PO HS [facility] Last Admin: 01/20/19 21:27 Dose: 10 mg Multivitamins/Minerals (Therapeutic-M Tab) 1 tab PO DAILY [facility] Last Admin: 01/21/19 08:52 Dose: 1 tab Oxycodone/Acetaminophen (Percocet 5/325 Mg Tab) 2 tab PO Q4 PRN PRN Reason: Pain, severe (8-10) Stop: 01/21/19 22:33 Oxycodone/Acetaminophen (Percocet 5/325 Mg Tab) 1 tab PO Q4 PRN PRN Reason: Pain, moderate (4-7) Stop: 01/21/19 22:35 Last Admin: 01/18/19 22:50 Dose: 1 tab Pantoprazole Sodium (Protonix Ec Tab) 40 mg PO DAILY [facility] Last Admin: 01/21/19 13:20 Dose: 40 mg Pregabalin (Lyrica) 50 mg PO Q12 [facility] Last Admin: 01/21/19 13:19 Dose: 50 mg Rivaroxaban (Xarelto) 10 mg PO DAILY [facility]; Protocol Last Admin: 01/21/19 08:53 Dose: 10 mg Zolpidem Tartrate (Ambien) 10 mg PO [facility] Last Admin: 01/20/19 23:00 Dose: 10 mg - Labs Labs: 01/21/19 09:45 01/21/19 09:45 PT 11.5 Seconds (9.8-13.1) 01/15/19 15:46 INR 1.0 01/15/19 15:46 - Constitutional Appears: No Acute Distress - Head Exam Head Exam: NORMAL INSPECTION - Eye Exam Eye Exam: PERRL - ENT Exam ENT Exam: Normal Exam - Neck Exam Neck Exam: Normal Inspection - Respiratory Exam Respiratory Exam: NORMAL BREATHING PATTERN - Cardiovascular Exam Cardiovascular Exam: REGULAR RHYTHM, Murmur (systolic) - GI/Abdominal Exam GI & Abdominal Exam: Soft, Normal Bowel Sounds - Exam Additional comments: Pryor Cath - Extremities Exam Extremities Exam: Normal Inspection - Back Exam Back Exam: NORMAL INSPECTION - Neurological Exam Neurological Exam: Alert, Oriented x3 Additional comments: No focal motor/sensory deficit. - Psychiatric Exam Psychiatric exam: Anxious - Skin Skin Exam: Warm Assessment and Plan (1) Acute pain of left lower extremity Status: Acute (2) Pain in left foot Status: Acute (3) Pain of left calf Status: Acute (4) Radiculopathy Status: Acute (5) PVD (peripheral vascular disease) Status: Chronic (6) Hyperglycemia due to type 2 diabetes mellitus Status: Acute (7) Diabetic neuropathy Status: Chronic (8) S/P angioplasty Status: Chronic (9) Hydronephrosis of left kidney Status: Acute (10) Bladder outlet obstruction Status: Acute (11) HTN (hypertension) Status: Chronic (12) Moderate COPD (chronic obstructive pulmonary disease) Status: Acute (13) Dyslipidemia Status: Acute (14) Anxiety Status: Chronic (15) Osteoarthritis Status: Chronic - Assessment and Plan (Free Text) Plan: Urology no planning for Cystoscopy, continue current Tx.
--- NOTE | 2019-01-21 20:01 | CP.PCM.PN ---
Subjective - Date & Time of Evaluation Date of Evaluation: 01/21/19 Time of Evaluation: 19:59 - Subjective Subjective: gu note dictated Objective - Vital Signs/Intake and Output Vital Signs (last 24 hours): Temp Pulse Resp BP Pulse Ox 98 F 102 H 18 115/57 L 98 01/21/19 19:56 01/21/19 19:56 01/21/19 19:56 01/21/19 19:56 01/21/19 19:56 Intake and Output: 01/21/19 01/22/19 18:59 06:59 Intake Total 1200 Balance 1200 - Medications Medications: Current Medications Albuterol/Ipratropium (Duoneb 3 Mg/0.5 Mg (3 Ml) Ud) 3 ml INH RQ6 PRN PRN Reason: Shortness of Breath Amlodipine Besylate (Norvasc) 10 mg PO DAILY [facility] Last Admin: 01/21/19 08:51 Dose: 10 mg Amylase (Pancrease 17726 U-5000 U-[id number] U) 5,000 unit PO WM [facility] Last Admin: 01/21/19 18:28 Dose: 5,000 unit Atorvastatin Calcium (Lipitor) 40 mg PO DAILY [facility] Last Admin: 01/21/19 08:50 Dose: 40 mg Clopidogrel Bisulfate (Plavix) 75 mg PO DAILY [facility] Last Admin: 01/21/19 08:52 Dose: 75 mg Dextrose (Dextrose 50% Inj) 0 ml IV STAT PRN; Protocol PRN Reason: Hypoglycemia Protocol Last Admin: 01/19/19 12:14 Dose: 50 ml Dextrose (Glutose 15) 0 gm PO ONCE PRN; Protocol PRN Reason: Hypoglycemia Protocol Ezetimibe (Zetia) 10 mg PO DAILY [facility] Last Admin: 01/21/19 08:53 Dose: 10 mg Glucagon (Glucagen Diagnostic Kit) 0 mg IM STAT PRN; Protocol PRN Reason: Hypoglycemia Protocol Hydrochlorothiazide (Microzide) 12.5 mg PO DAILY [facility] Last Admin: 01/21/19 08:51 Dose: 12.5 mg Insulin Detemir (Levemir) 30 units SC HS [facility] Last Admin: 01/20/19 21:29 Dose: 30 units Insulin Human Lispro (Humalog) 0 units SC ACHS [facility]; Protocol Last Admin: 01/21/19 17:12 Dose: 4 u Insulin Human Lispro (Humalog) 12 units SC ACTID [facility] Last Admin: 01/21/19 17:13 Dose: 12 units Loratadine (Claritin) 10 mg PO DAILY PRN PRN Reason: Allergy symptoms Losartan Potassium (Cozaar) 100 mg PO DAILY [facility] Last Admin: 01/21/19 08:45 Dose: 100 mg Mirtazapine (Remeron) 15 mg PO HS [facility] Last Admin: 01/20/19 21:27 Dose: 15 mg Montelukast Sodium (Singulair) 10 mg PO HS [facility] Last Admin: 01/20/19 21:27 Dose: 10 mg Multivitamins/Minerals (Therapeutic-M Tab) 1 tab PO DAILY [facility] Last Admin: 01/21/19 08:52 Dose: 1 tab Oxycodone/Acetaminophen (Percocet 5/325 Mg Tab) 2 tab PO Q4 PRN PRN Reason: Pain, severe (8-10) Stop: 01/21/19 22:33 Oxycodone/Acetaminophen (Percocet 5/325 Mg Tab) 1 tab PO Q4 PRN PRN Reason: Pain, moderate (4-7) Stop: 01/21/19 22:35 Last Admin: 01/18/19 22:50 Dose: 1 tab Pantoprazole Sodium (Protonix Ec Tab) 40 mg PO DAILY [facility] Last Admin: 01/21/19 13:20 Dose: 40 mg Pregabalin (Lyrica) 50 mg PO Q12 [facility] Last Admin: 01/21/19 13:19 Dose: 50 mg Rivaroxaban (Xarelto) 10 mg PO DAILY [facility]; Protocol Last Admin: 01/21/19 08:53 Dose: 10 mg Zolpidem Tartrate (Ambien) 10 mg PO [facility] Last Admin: 01/20/19 23:00 Dose: 10 mg - Labs Labs: 01/21/19 09:45 01/21/19 09:45 PT 11.5 Seconds (9.8-13.1) 01/15/19 15:46 INR 1.0 01/15/19 15:46
[2019-01-21] MEDS: Insulin Detemir 100 Units/ml Inj SC SCH (21:48)
--- NOTE | 2019-01-22 00:34 | PN ---
DATE: 01/21/2019 This 78-year-old female patient was diagnosed with a sensory and motor neurogenic bladder. She had in her worst appearance two liters of retained urine with a left hydronephrosis. At the first time I evaluated the patient, I had recommended a Pryor catheter to gravity drainage and then an updating of her ultrasound for evaluation. The ultrasound was done today, and the ultrasound report indicates the left kidney is normal in size and contour and the right kidney is normal in size and contour, so the hydronephrosis has resolved with the catheter drainage. The problem currently lies in the fact that the patient does not care for the Pryor catheter, but she ultimately has no real option. I did discuss with her the possibility of training her for self-intermittent catheterization which I will write as an order for the nurses to show the patient how to self-catheterize herself starting tomorrow. If she feels comfortable with that option, then she may be discharged home urologically with that understanding that she will be catheterizing herself at least three times a day to keep the bladder at a relatively normal size. If she does not pass the test of understanding how to self-catheterize, then I would say that she needs to be with a long-term Pryor catheter and with intermittent changing of the Pryor perhaps once every six to eight weeks. The patient was aware of both her options. She likes neither but one she will have to choose. Aryan Puente MD
[2019-01-22] MEDS: Insulin Lispro (humaLOG) 100 Units/ml Inj SC SCH ×7 (08:12→21:58)
[2019-01-22] MEDS: Amylase/Lipase/Protease 5,000 Units ECC PO SCH ×3 (08:13→21:05)
[2019-01-22] MEDS: FLUTICASONE PROPION/SALMETEROL 113-14 IH SCH ×2 (08:14→21:05)
[2019-01-22] MEDS: Pantoprazole 40 mg EC Tab PO SCH (08:16)
[2019-01-22] MEDS: Multivitamin With Minerals Tab PO SCH (08:17)
--- NOTE | 2019-01-22 14:01 | CP.PCM.PN ---
Subjective - Date & Time of Evaluation Date of Evaluation: 01/22/19 Time of Evaluation: 11:00 - Subjective Subjective: F/U LLE pain. No L-S pain , no LLE pain Objective - Vital Signs/Intake and Output Vital Signs (last 24 hours): Temp Pulse Resp BP Pulse Ox 97.9 F 103 H 20 118/55 L 97 01/22/19 12:14 01/22/19 12:14 01/22/19 12:14 01/22/19 12:14 01/22/19 12:14 Intake and Output: 01/22/19 01/22/19 06:59 18:59 Output Total 3000 Balance -3000 - Medications Medications: Current Medications Albuterol/Ipratropium (Duoneb 3 Mg/0.5 Mg (3 Ml) Ud) 3 ml INH RQ6 PRN PRN Reason: Shortness of Breath Amlodipine Besylate (Norvasc) 10 mg PO DAILY [facility] Last Admin: 01/22/19 08:27 Dose: 10 mg Amylase (Pancrease 20086 U-5000 [id number] U) 5,000 unit PO WM [facility] Last Admin: 01/22/19 12:15 Dose: 5,000 unit Atorvastatin Calcium (Lipitor) 40 mg PO DAILY [facility] Last Admin: 01/22/19 08:15 Dose: 40 mg Clopidogrel Bisulfate (Plavix) 75 mg PO DAILY [facility] Last Admin: 01/21/19 08:52 Dose: 75 mg Dextrose (Dextrose 50% Inj) 0 ml IV STAT PRN; Protocol PRN Reason: Hypoglycemia Protocol Last Admin: 01/19/19 12:14 Dose: 50 ml Dextrose (Glutose 15) 0 gm PO ONCE PRN; Protocol PRN Reason: Hypoglycemia Protocol Ezetimibe (Zetia) 10 mg PO DAILY [facility] Last Admin: 01/22/19 08:17 Dose: 10 mg Glucagon (Glucagen Diagnostic Kit) 0 mg IM STAT PRN; Protocol PRN Reason: Hypoglycemia Protocol Hydrochlorothiazide (Microzide) 12.5 mg PO DAILY [facility] Last Admin: 01/22/19 08:16 Dose: 12.5 mg Insulin Detemir (Levemir) 30 units SC HS [facility] Last Admin: 01/21/19 21:48 Dose: 30 units Insulin Human Lispro (Humalog) 0 units SC [facility]; Protocol Last Admin: 01/22/19 12:16 Dose: 5 u Insulin Human Lispro (Humalog) 12 units SC ACTID [facility] Last Admin: 01/22/19 12:16 Dose: 12 units Loratadine (Claritin) 10 mg PO DAILY PRN PRN Reason: Allergy symptoms Losartan Potassium (Cozaar) 100 mg PO DAILY [facility] Last Admin: 01/22/19 08:27 Dose: 100 mg Mirtazapine (Remeron) 15 mg PO HS [facility] Last Admin: 01/21/19 21:46 Dose: 15 mg Montelukast Sodium (Singulair) 10 mg PO HS [facility] Last Admin: 01/21/19 21:46 Dose: 10 mg Multivitamins/Minerals (Therapeutic-M Tab) 1 tab PO DAILY [facility] Last Admin: 01/22/19 08:17 Dose: 1 tab Pantoprazole Sodium (Protonix Ec Tab) 40 mg PO DAILY [facility] Last Admin: 01/22/19 08:16 Dose: 40 mg Pregabalin (Lyrica) 50 mg PO Q12 [facility] Last Admin: 01/22/19 08:26 Dose: 50 mg Rivaroxaban (Xarelto) 10 mg PO DAILY [facility]; Protocol Last Admin: 01/21/19 08:53 Dose: 10 mg Zolpidem Tartrate (Ambien) 10 mg PO [facility] Last Admin: 01/21/19 21:53 Dose: 10 mg - Labs Labs: 01/21/19 09:45 01/21/19 09:45 PT 11.5 Seconds (9.8-13.1) 01/15/19 15:46 INR 1.0 01/15/19 15:46 - Constitutional Appears: No Acute Distress - Head Exam Head Exam: NORMAL INSPECTION - Eye Exam Eye Exam: PERRL - ENT Exam ENT Exam: Normal Exam - Neck Exam Neck Exam: Normal Inspection - Respiratory Exam Respiratory Exam: NORMAL BREATHING PATTERN - Cardiovascular Exam Cardiovascular Exam: REGULAR RHYTHM, Murmur (systolic) - GI/Abdominal Exam GI & Abdominal Exam: Soft, Normal Bowel Sounds - Exam Additional comments: Pryor Cath - Extremities Exam Extremities Exam: Normal Inspection - Back Exam Back Exam: NORMAL INSPECTION - Neurological Exam Neurological Exam: Alert, Oriented x3 Additional comments: No focal motor/sensory deficit. - Psychiatric Exam Psychiatric exam: Anxious - Skin Skin Exam: Warm Assessment and Plan (1) Acute pain of left lower extremity Status: Acute (2) Pain in left foot Status: Acute (3) Pain of left calf Status: Acute (4) Radiculopathy Status: Acute (5) PVD (peripheral vascular disease) Status: Chronic (6) Hyperglycemia due to type 2 diabetes mellitus Status: Acute (7) Diabetic neuropathy Status: Chronic (8) S/P angioplasty Status: Chronic (9) Hydronephrosis of left kidney Status: Acute (10) Bladder outlet obstruction Status: Acute (11) HTN (hypertension) Status: Chronic (12) Moderate COPD (chronic obstructive pulmonary disease) Status: Acute (13) Dyslipidemia Status: Acute (14) Anxiety Status: Chronic (15) Osteoarthritis Status: Chronic - Assessment and Plan (Free Text) Plan: Pt does not agree to use permanent Foly Cath or self catheterization 3 x daily, discussed with Pt to get Urology 2nd opinion.
--- NOTE | 2019-01-22 15:29 | CP.PCM.PN ---
Subjective - Date & Time of Evaluation Date of Evaluation: 01/22/19 Time of Evaluation: 15:29 - Subjective Subjective: LLE pain stable Objective - Vital Signs/Intake and Output Vital Signs (last 24 hours): Temp Pulse Resp BP Pulse Ox 97.9 F 103 H 20 118/55 L 97 01/22/19 12:14 01/22/19 12:14 01/22/19 12:14 01/22/19 12:14 01/22/19 12:14 Intake and Output: 01/22/19 01/22/19 06:59 18:59 Output Total 3000 Balance -3000 - Medications Medications: Current Medications Acetaminophen (Tylenol 325mg Tab) 650 mg PO Q6 PRN PRN Reason: Pain, Mild (1-3) Last Admin: 01/22/19 14:39 Dose: 650 mg Albuterol/Ipratropium (Duoneb 3 Mg/0.5 Mg (3 Ml) Ud) 3 ml INH RQ6 PRN PRN Reason: Shortness of Breath Amlodipine Besylate (Norvasc) 10 mg PO DAILY [facility] Last Admin: 01/22/19 08:27 Dose: 10 mg Amylase (Pancrease 65632 U-5000 U-[id number] U) 5,000 unit PO WM [facility] Last Admin: 01/22/19 12:15 Dose: 5,000 unit Atorvastatin Calcium (Lipitor) 40 mg PO DAILY [facility] Last Admin: 01/22/19 08:15 Dose: 40 mg Clopidogrel Bisulfate (Plavix) 75 mg PO DAILY [facility] Last Admin: 01/21/19 08:52 Dose: 75 mg Dextrose (Dextrose 50% Inj) 0 ml IV STAT PRN; Protocol PRN Reason: Hypoglycemia Protocol Last Admin: 01/19/19 12:14 Dose: 50 ml Dextrose (Glutose 15) 0 gm PO ONCE PRN; Protocol PRN Reason: Hypoglycemia Protocol Ezetimibe (Zetia) 10 mg PO DAILY [facility] Last Admin: 01/22/19 08:17 Dose: 10 mg Glucagon (Glucagen Diagnostic Kit) 0 mg IM STAT PRN; Protocol PRN Reason: Hypoglycemia Protocol Hydrochlorothiazide (Microzide) 12.5 mg PO DAILY [facility] Last Admin: 01/22/19 08:16 Dose: 12.5 mg Insulin Detemir (Levemir) 30 units SC [facility] Last Admin: 01/21/19 21:48 Dose: 30 units Insulin Human Lispro (Humalog) 0 units SC [facility]; Protocol Last Admin: 01/22/19 12:16 Dose: 5 u Insulin Human Lispro (Humalog) 12 units SC ACTID [facility] Last Admin: 01/22/19 12:16 Dose: 12 units Loratadine (Claritin) 10 mg PO DAILY PRN PRN Reason: Allergy symptoms Losartan Potassium (Cozaar) 100 mg PO DAILY [facility] Last Admin: 01/22/19 08:27 Dose: 100 mg Mirtazapine (Remeron) 15 mg PO HS [facility] Last Admin: 01/21/19 21:46 Dose: 15 mg Montelukast Sodium (Singulair) 10 mg PO HS [facility] Last Admin: 01/21/19 21:46 Dose: 10 mg Multivitamins/Minerals (Therapeutic-M Tab) 1 tab PO DAILY [facility] Last Admin: 01/22/19 08:17 Dose: 1 tab Pantoprazole Sodium (Protonix Ec Tab) 40 mg PO DAILY [facility] Last Admin: 01/22/19 08:16 Dose: 40 mg Pregabalin (Lyrica) 50 mg PO Q12 [facility] Last Admin: 01/22/19 08:26 Dose: 50 mg Rivaroxaban (Xarelto) 10 mg PO DAILY [facility]; Protocol Last Admin: 01/21/19 08:53 Dose: 10 mg Zolpidem Tartrate (Ambien) 10 mg PO [facility] Last Admin: 01/21/19 21:53 Dose: 10 mg - Labs Labs: 01/21/19 09:45 01/21/19 09:45 PT 11.5 Seconds (9.8-13.1) 01/15/19 15:46 INR 1.0 01/15/19 15:46 - Constitutional Appears: Well - Head Exam Head Exam: ATRAUMATIC, NORMAL INSPECTION, NORMOCEPHALIC - Eye Exam Eye Exam: EOMI, Normal appearance, PERRL Pupil Exam: NORMAL ACCOMODATION, PERRL - ENT Exam ENT Exam: Mucous Membranes Moist, Normal Exam - Neck Exam Neck Exam: Full ROM, Normal Inspection. absent: Lymphadenopathy - Respiratory Exam Respiratory Exam: Clear to Ausculation Bilateral, NORMAL BREATHING PATTERN - Cardiovascular Exam Cardiovascular Exam: REGULAR RHYTHM, +S1, +S2. absent: Murmur - GI/Abdominal Exam GI & Abdominal Exam: Soft, Normal Bowel Sounds. absent: Tenderness - Extremities Exam Extremities Exam: Full ROM, Normal Capillary Refill, Normal Inspection. absent: Joint Swelling, Pedal Edema - Back Exam Back Exam: NORMAL INSPECTION - Neurological Exam Neurological Exam: Alert, Awake, CN II-XII Intact, Normal Gait, Oriented x3 - Psychiatric Exam Psychiatric exam: Normal Affect, Normal Mood - Skin Skin Exam: Dry, Intact, Normal Color, Warm Assessment and Plan (1) Leg pain Status: Acute (2) Radiculopathy Status: Acute (3) PVD (peripheral vascular disease) Status: Chronic (4) HTN (hypertension) Status: Chronic (5) Dyslipidemia Status: Acute (6) Hydronephrosis Status: Acute
[2019-01-22] MEDS: Insulin Detemir 100 Units/ml Inj SC SCH (22:00)
[2019-01-23] MEDS: Amylase/Lipase/Protease 5,000 Units ECC PO SCH ×3 (08:15→17:30)
[2019-01-23] MEDS: Insulin Lispro (humaLOG) 100 Units/ml Inj SC SCH ×7 (08:20→21:30)
[2019-01-23] MEDS: Pantoprazole 40 mg EC Tab PO SCH (09:17)
[2019-01-23] MEDS: FLUTICASONE PROPION/SALMETEROL 113-14 IH SCH ×2 (09:17→21:35)
[2019-01-23] MEDS: Multivitamin With Minerals Tab PO SCH (09:17)
[2019-01-23] MEDS ORDERED: Chlorhexidine Gluconate 1 APPL/PKT TP ONE (10:21)
--- NOTE | 2019-01-23 13:45 | CP.PCM.PN ---
Subjective - Date & Time of Evaluation Date of Evaluation: 01/23/19 Time of Evaluation: 13:35 - Subjective Subjective: F/U LLE pain no pain L-S- LLE , no suprapubic pain, off Pryor Cath Objective - Vital Signs/Intake and Output Vital Signs (last 24 hours): Temp Pulse Resp BP Pulse Ox 98.1 F 101 H 20 137/73 96 01/23/19 12:20 01/23/19 12:20 01/23/19 12:20 01/23/19 12:20 01/23/19 12:20 Intake and Output: 01/23/19 01/23/19 06:59 18:59 Intake Total 500 Output Total 1400 Balance -900 - Medications Medications: Current Medications Acetaminophen (Tylenol 325mg Tab) 650 mg PO Q6 PRN PRN Reason: Pain, Mild (1-3) Last Admin: 01/22/19 14:39 Dose: 650 mg Amlodipine Besylate (Norvasc) 10 mg PO DAILY [facility] Last Admin: 01/23/19 09:17 Dose: 10 mg Amylase (Pancrease [id number] U-5000 U-[id number] U) 5,000 unit PO WM [facility] Last Admin: 01/23/19 11:36 Dose: 5,000 unit Atorvastatin Calcium (Lipitor) 40 mg PO DAILY [facility] Last Admin: 01/23/19 09:16 Dose: 40 mg Clopidogrel Bisulfate (Plavix) 75 mg PO DAILY [facility] Last Admin: 01/21/19 08:52 Dose: 75 mg Dextrose (Dextrose 50% Inj) 0 ml IV STAT PRN; Protocol PRN Reason: Hypoglycemia Protocol Last Admin: 01/19/19 12:14 Dose: 50 ml Dextrose (Glutose 15) 0 gm PO ONCE PRN; Protocol PRN Reason: Hypoglycemia Protocol Ezetimibe (Zetia) 10 mg PO DAILY [facility] Last Admin: 01/23/19 09:17 Dose: 10 mg Glucagon (Glucagen Diagnostic Kit) 0 mg IM STAT PRN; Protocol PRN Reason: Hypoglycemia Protocol Hydrochlorothiazide (Microzide) 12.5 mg PO DAILY [facility] Last Admin: 01/23/19 09:16 Dose: 12.5 mg Insulin Detemir (Levemir) 30 units SC HS [facility] Last Admin: 01/22/19 22:00 Dose: 30 units Insulin Human Lispro (Humalog) 0 units SC ACHS [facility]; Protocol Last Admin: 01/23/19 11:35 Dose: 6 u Insulin Human Lispro (Humalog) 12 units SC ACTID [facility] Last Admin: 01/23/19 11:35 Dose: 12 units Loratadine (Claritin) 10 mg PO DAILY PRN PRN Reason: Allergy symptoms Losartan Potassium (Cozaar) 100 mg PO DAILY [facility] Last Admin: 01/23/19 09:16 Dose: 100 mg Mirtazapine (Remeron) 15 mg PO HS [facility] Last Admin: 01/22/19 21:10 Dose: 15 mg Montelukast Sodium (Singulair) 10 mg PO HS [facility] Last Admin: 01/22/19 21:10 Dose: 10 mg Multivitamins/Minerals (Therapeutic-M Tab) 1 tab PO DAILY [facility] Last Admin: 01/23/19 09:17 Dose: 1 tab Pantoprazole Sodium (Protonix Ec Tab) 40 mg PO DAILY [facility] Last Admin: 01/23/19 09:17 Dose: 40 mg Pregabalin (Lyrica) 50 mg PO Q12 [facility] Last Admin: 01/23/19 09:17 Dose: 50 mg Rivaroxaban (Xarelto) 10 mg PO DAILY [facility]; Protocol Last Admin: 01/21/19 08:53 Dose: 10 mg Tamsulosin HCl (Flomax) 0.4 mg PO DAILY [facility] Last Admin: 01/23/19 11:34 Dose: 0.4 mg Zolpidem Tartrate (Ambien) 10 mg PO [facility] Last Admin: 01/22/19 21:09 Dose: 10 mg - Labs Labs: 01/21/19 09:45 01/21/19 09:45 PT 11.5 Seconds (9.8-13.1) 01/15/19 15:46 INR 1.0 01/15/19 15:46 - Constitutional Appears: No Acute Distress - Head Exam Head Exam: NORMAL INSPECTION - Eye Exam Eye Exam: PERRL - ENT Exam ENT Exam: Normal Exam - Neck Exam Neck Exam: Normal Inspection - Respiratory Exam Respiratory Exam: NORMAL BREATHING PATTERN - Cardiovascular Exam Cardiovascular Exam: REGULAR RHYTHM, Murmur (systolic) - GI/Abdominal Exam GI & Abdominal Exam: Soft, Normal Bowel Sounds - Extremities Exam Extremities Exam: Normal Inspection - Back Exam Back Exam: NORMAL INSPECTION - Neurological Exam Neurological Exam: Alert, Oriented x3 Additional comments: No focal motor/sensory deficit - Psychiatric Exam Psychiatric exam: Anxious - Skin Skin Exam: Warm Assessment and Plan (1) Acute pain of left lower extremity Status: Acute (2) Pain in left foot Status: Acute (3) Pain of left calf Status: Acute (4) Radiculopathy Status: Acute (5) PVD (peripheral vascular disease) Status: Chronic (6) Hyperglycemia due to type 2 diabetes mellitus Status: Acute (7) Diabetic neuropathy Status: Chronic (8) S/P angioplasty Status: Chronic (9) Hydronephrosis of left kidney Status: Acute (10) Bladder outlet obstruction Status: Acute (11) HTN (hypertension) Status: Chronic (12) Moderate COPD (chronic obstructive pulmonary disease) Status: Acute (13) Dyslipidemia Status: Acute (14) Anxiety Status: Chronic (15) Osteoarthritis Status: Chronic - Assessment and Plan (Free Text) Plan: Urology 2nd opinion Pryor Cath was DC, start Flomax, monitor urine out put in 24 hs, continue Xarelto, monitor BP and BS
--- NOTE | 2019-01-23 14:36 | CP.PCM.PN ---
Subjective - Date & Time of Evaluation Date of Evaluation: 01/23/19 Time of Evaluation: 14:36 - Subjective Subjective: LLE pain stable urology w/u Objective - Vital Signs/Intake and Output Vital Signs (last 24 hours): Temp Pulse Resp BP Pulse Ox 98.1 F 101 H 20 137/73 96 01/23/19 12:20 01/23/19 12:20 01/23/19 12:20 01/23/19 12:20 01/23/19 12:20 Intake and Output: 01/23/19 01/23/19 06:59 18:59 Intake Total 500 Output Total 1400 Balance -900 - Medications Medications: Current Medications Acetaminophen (Tylenol 325mg Tab) 650 mg PO Q6 PRN PRN Reason: Pain, Mild (1-3) Last Admin: 01/22/19 14:39 Dose: 650 mg Amlodipine Besylate (Norvasc) 10 mg PO DAILY [facility] Last Admin: 01/23/19 09:17 Dose: 10 mg Amylase (Pancrease [id number] U-5000 U-[id number] U) 5,000 unit PO WM [facility] Last Admin: 01/23/19 11:36 Dose: 5,000 unit Atorvastatin Calcium (Lipitor) 40 mg PO DAILY [facility] Last Admin: 01/23/19 09:16 Dose: 40 mg Clopidogrel Bisulfate (Plavix) 75 mg PO DAILY [facility] Last Admin: 01/21/19 08:52 Dose: 75 mg Dextrose (Dextrose 50% Inj) 0 ml IV STAT PRN; Protocol PRN Reason: Hypoglycemia Protocol Last Admin: 01/19/19 12:14 Dose: 50 ml Dextrose (Glutose 15) 0 gm PO ONCE PRN; Protocol PRN Reason: Hypoglycemia Protocol Ezetimibe (Zetia) 10 mg PO DAILY [facility] Last Admin: 01/23/19 09:17 Dose: 10 mg Glucagon (Glucagen Diagnostic Kit) 0 mg IM STAT PRN; Protocol PRN Reason: Hypoglycemia Protocol Hydrochlorothiazide (Microzide) 12.5 mg PO DAILY [facility] Last Admin: 01/23/19 09:16 Dose: 12.5 mg Insulin Detemir (Levemir) 30 units SC [facility] Last Admin: 01/22/19 22:00 Dose: 30 units Insulin Human Lispro (Humalog) 0 units SC [facility]; Protocol Last Admin: 01/23/19 11:35 Dose: 6 u Insulin Human Lispro (Humalog) 12 units SC ACTID [facility] Last Admin: 01/23/19 11:35 Dose: 12 units Loratadine (Claritin) 10 mg PO DAILY PRN PRN Reason: Allergy symptoms Losartan Potassium (Cozaar) 100 mg PO DAILY [facility] Last Admin: 01/23/19 09:16 Dose: 100 mg Mirtazapine (Remeron) 15 mg PO [facility] Last Admin: 01/22/19 21:10 Dose: 15 mg Montelukast Sodium (Singulair) 10 mg PO HS [facility] Last Admin: 01/22/19 21:10 Dose: 10 mg Multivitamins/Minerals (Therapeutic-M Tab) 1 tab PO DAILY [facility] Last Admin: 01/23/19 09:17 Dose: 1 tab Pantoprazole Sodium (Protonix Ec Tab) 40 mg PO DAILY [facility] Last Admin: 01/23/19 09:17 Dose: 40 mg Pregabalin (Lyrica) 50 mg PO Q12 [facility] Last Admin: 01/23/19 09:17 Dose: 50 mg Rivaroxaban (Xarelto) 10 mg PO DAILY [facility]; Protocol Last Admin: 01/21/19 08:53 Dose: 10 mg Tamsulosin HCl (Flomax) 0.4 mg PO DAILY [facility] Last Admin: 01/23/19 11:34 Dose: 0.4 mg Zolpidem Tartrate (Ambien) 10 mg PO [facility] Last Admin: 01/22/19 21:09 Dose: 10 mg - Labs Labs: 01/21/19 09:45 01/21/19 09:45 PT 11.5 Seconds (9.8-13.1) 01/15/19 15:46 INR 1.0 01/15/19 15:46 - Constitutional Appears: Well - Head Exam Head Exam: ATRAUMATIC, NORMAL INSPECTION, NORMOCEPHALIC - Eye Exam Eye Exam: EOMI, Normal appearance, PERRL Pupil Exam: NORMAL ACCOMODATION, PERRL - ENT Exam ENT Exam: Mucous Membranes Moist, Normal Exam - Neck Exam Neck Exam: Full ROM, Normal Inspection. absent: Lymphadenopathy - Respiratory Exam Respiratory Exam: Clear to Ausculation Bilateral, NORMAL BREATHING PATTERN - Cardiovascular Exam Cardiovascular Exam: REGULAR RHYTHM, +S1, +S2. absent: Murmur - GI/Abdominal Exam GI & Abdominal Exam: Soft, Normal Bowel Sounds. absent: Tenderness - Extremities Exam Extremities Exam: Full ROM, Normal Capillary Refill, Normal Inspection. absent: Joint Swelling, Pedal Edema - Back Exam Back Exam: NORMAL INSPECTION - Neurological Exam Neurological Exam: Alert, Awake, CN II-XII Intact, Normal Gait, Oriented x3 - Psychiatric Exam Psychiatric exam: Normal Affect, Normal Mood - Skin Skin Exam: Dry, Intact, Normal Color, Warm Assessment and Plan (1) Leg pain Status: Acute (2) Radiculopathy Status: Acute (3) PVD (peripheral vascular disease) Status: Chronic (4) HTN (hypertension) Status: Chronic (5) Dyslipidemia Status: Acute (6) Hydronephrosis Status: Acute
--- NOTE | 2019-01-23 20:58 | CON ---
DATE: 01/23/2019 COMPREHENSIVE UROLOGY CONSULTATION SECOND OPINION TIME OF CONSULTATION: Roughly 10:27 a.m. BRIEF HISTORY: The patient is a 78-year-old female from [place], who presents to [facility] ER with complaint of left lower extremity pain and weakness of the left lower extremity and some back pain. The patient during her hospital stay had difficulty voiding urine, and a renal ultrasound done on 01/16/2019 showed normal right kidney with left hydronephrosis. A Pryor catheter was inserted, and a repeat renal ultrasound done on 01/21/2019 showed resolution of the left hydronephrosis with the Pryor catheter. The patient is currently being set up for a voiding trial. The patient denies any history of any voiding problems at home. She did have history of some increased urinary frequency and urgency to urinate at home recently. A urine C and S during this admission on 01/17/2019 showed no growth. The patient was taking Percocet and ibuprofen for pain relief with mild relief. She said she has normal bowel movements and denies constipation. She is a 10, para 10, with all normal vaginal deliveries. She has no known allergies to any medications. No history of any tobacco or alcohol abuse or use. PHYSICAL EXAMINATION: GENERAL: Today, the patient is a well-developed, well-nourished slightly obese female. She is alert. She is oriented. HEENT: Grossly within normal limits. NECK: Supple. Thyroid not palpable. ABDOMEN: Soft, not distended or tender. No CVA tenderness. No suprapubic tenderness. The Pryor catheter is draining grossly pablito urine well at this hour. PELVIC: Examination reveals no dropping of the bladder at rest and very minimal dropping of the bladder with Valsalva maneuver. There is no evidence of any vaginal prolapse or large cystocele. It should be a reason for her urinary retention. LABORATORY DATA: Laboratory evaluation on 01/21/2019 showed a CBC with a WBC count of 10.1, hemoglobin 10.1 and hematocrit of 31 with a platelet count of 342,000. A urinalysis on 01/17/2019 showed the color was straw colored, cloudy but clear. PH was 6. Specific gravity 1.010. Protein negative. Glucose 150. Ketones negative. Blood negative. Nitrite negative. Bilirubin negative. Urobilinogen 0.2 and 1. Leukocyte esterase is negative. Less than one rbc per high-power field. Glucose on 01/23/2019 was 286. Her chem profile showed a sodium of 134, this was on 01/21/2019. Potassium 4.5, chloride 98, CO2 of 25. BUN and creatinine 28 and 1.2 respectively with a GFR of 43 indicating chronic kidney disease stage 3. Random glucose was 327. Hemoglobin A1c was 8.2. Calcium 9.7. On 01/16/2019, her total bilirubin was 0.3. AST was 33 and ALT was 20. Alkaline phosphatase was 81. Her total protein was 7. Albumin 3.8. Triglyceride level was 314. Total cholesterol level was 168. LDL was 82. HDL was 28. TSH was 3.16. DIAGNOSTIC IMPRESSION: 1. Urinary retention. 2. Left hydronephrosis, resolved with Pryor catheterization. PLAN: We will give the patient a voiding trial, and we will start the patient on Flomax 0.4 mg daily to see if this helps with her voiding pattern. Ian Jenkins MD
[2019-01-23] MEDS: Insulin Detemir 100 Units/ml Inj SC SCH (21:30)
[2019-01-24 06:09] LABS: HEMOGLOBIN 9.5 g/dL (12.0-16.0); MEAN CELL VOLUME 83.6 fl (81.0-99.0); MEAN CORPUSCULAR HEMOGLOBIN 27.6 pg (27.0-31.0); RBC 3.43 Mil/uL (3.80-5.20); RED CELL DISTRIBUTION WIDTH 15.5 % (11.5-14.5)
[2019-01-24 06:22] LABS: CALCIUM 9.4 mg/dL (8.4-10.2)
[2019-01-24] MEDS: Amylase/Lipase/Protease 5,000 Units ECC PO SCH ×3 (08:42→17:31)
[2019-01-24] MEDS: FLUTICASONE PROPION/SALMETEROL 113-14 IH SCH ×2 (08:42→21:12)
[2019-01-24] MEDS: Multivitamin With Minerals Tab PO SCH (08:44)
[2019-01-24] MEDS: Insulin Lispro (humaLOG) 100 Units/ml Inj SC SCH ×7 (08:45→22:47)
[2019-01-24] MEDS: Pantoprazole 40 mg EC Tab PO SCH (08:45)
--- NOTE | 2019-01-24 14:07 | CP.PCM.PN ---
Subjective - Date & Time of Evaluation Date of Evaluation: 01/24/19 Time of Evaluation: 11:40 - Subjective Subjective: F/U LLE Pain. No c/o of LLE pain and no L-S pain, Pryor was reinserted yesterday in the evening 2nd to urinary retention. Objective - Vital Signs/Intake and Output Vital Signs (last 24 hours): Temp Pulse Resp BP Pulse Ox 98.1 F 107 H 18 99/64 L 98 01/24/19 11:38 01/24/19 11:38 01/24/19 11:38 01/24/19 11:38 01/24/19 11:38 Intake and Output: 01/24/19 01/24/19 06:59 18:59 Intake Total 500 Output Total 3100 Balance -2600 - Medications Medications: Current Medications Acetaminophen (Tylenol 325mg Tab) 650 mg PO Q6 PRN PRN Reason: Pain, Mild (1-3) Last Admin: 01/22/19 14:39 Dose: 650 mg Amlodipine Besylate (Norvasc) 10 mg PO DAILY [facility] Last Admin: 01/24/19 08:44 Dose: 10 mg Amylase (Pancrease 08399 U-5000 U-54615 U) 5,000 unit PO WM [facility] Last Admin: 01/24/19 11:56 Dose: 5,000 unit Atorvastatin Calcium (Lipitor) 40 mg PO DAILY [facility] Last Admin: 01/24/19 08:43 Dose: 40 mg Clopidogrel Bisulfate (Plavix) 75 mg PO DAILY [facility] Last Admin: 01/24/19 08:43 Dose: 75 mg Dextrose (Dextrose 50% Inj) 0 ml IV STAT PRN; Protocol PRN Reason: Hypoglycemia Protocol Last Admin: 01/19/19 12:14 Dose: 50 ml Dextrose (Glutose 15) 0 gm PO ONCE PRN; Protocol PRN Reason: Hypoglycemia Protocol Ezetimibe (Zetia) 10 mg PO DAILY [facility] Last Admin: 01/24/19 08:43 Dose: 10 mg Glucagon (Glucagen Diagnostic Kit) 0 mg IM STAT PRN; Protocol PRN Reason: Hypoglycemia Protocol Hydrochlorothiazide (Microzide) 12.5 mg PO DAILY [facility] Last Admin: 01/24/19 08:45 Dose: 12.5 mg Insulin Detemir (Levemir) 30 units SC [facility] Last Admin: 01/23/19 21:30 Dose: 30 units Insulin Human Lispro (Humalog) 0 units SC ACHS [facility]; Protocol Last Admin: 01/24/19 11:55 Dose: 5 u Insulin Human Lispro (Humalog) 12 units SC ACTID [facility] Last Admin: 01/24/19 11:55 Dose: 12 units Loratadine (Claritin) 10 mg PO DAILY PRN PRN Reason: Allergy symptoms Losartan Potassium (Cozaar) 100 mg PO DAILY [facility] Last Admin: 01/24/19 08:43 Dose: 100 mg Mirtazapine (Remeron) 15 mg PO HS [facility] Last Admin: 01/23/19 21:36 Dose: 15 mg Montelukast Sodium (Singulair) 10 mg PO HS [facility] Last Admin: 01/23/19 21:36 Dose: 10 mg Multivitamins/Minerals (Therapeutic-M Tab) 1 tab PO DAILY [facility] Last Admin: 01/24/19 08:44 Dose: 1 tab Pantoprazole Sodium (Protonix Ec Tab) 40 mg PO DAILY [facility] Last Admin: 01/24/19 08:45 Dose: 40 mg Pregabalin (Lyrica) 50 mg PO Q12 [facility] Last Admin: 01/24/19 08:42 Dose: 50 mg Rivaroxaban (Xarelto) 10 mg PO DAILY [facility]; Protocol Last Admin: 01/24/19 08:45 Dose: 10 mg Tamsulosin HCl (Flomax) 0.4 mg PO BID [facility] Zolpidem Tartrate (Ambien) 10 mg PO [facility] Last Admin: 01/23/19 21:35 Dose: 10 mg - Labs Labs: 01/24/19 05:05 01/24/19 05:05 PT 11.5 Seconds (9.8-13.1) 01/15/19 15:46 INR 1.0 01/15/19 15:46 - Constitutional Appears: No Acute Distress - Head Exam Head Exam: NORMAL INSPECTION - Eye Exam Eye Exam: PERRL - ENT Exam ENT Exam: Normal Exam - Neck Exam Neck Exam: Normal Inspection - Respiratory Exam Respiratory Exam: NORMAL BREATHING PATTERN - Cardiovascular Exam Cardiovascular Exam: REGULAR RHYTHM, Murmur (systolic) - GI/Abdominal Exam GI & Abdominal Exam: Soft, Normal Bowel Sounds - Exam Additional comments: Pryor cath - Extremities Exam Extremities Exam: Normal Inspection - Back Exam Back Exam: NORMAL INSPECTION - Neurological Exam Neurological Exam: Alert, Oriented x3 Additional comments: No focal motor/sensory deficit. - Psychiatric Exam Psychiatric exam: Anxious - Skin Skin Exam: Warm Assessment and Plan (1) Acute pain of left lower extremity Status: Acute (2) Pain in left foot Status: Acute (3) Pain of left calf Status: Acute (4) Radiculopathy Status: Acute (5) PVD (peripheral vascular disease) Status: Chronic (6) Hyperglycemia due to type 2 diabetes mellitus Status: Acute (7) Diabetic neuropathy Status: Chronic (8) S/P angioplasty Status: Chronic (9) Hydronephrosis of left kidney Status: Acute (10) Bladder outlet obstruction Status: Acute (11) HTN (hypertension) Status: Chronic (12) Moderate COPD (chronic obstructive pulmonary disease) Status: Acute (13) Dyslipidemia Status: Acute (14) Anxiety Status: Chronic (15) Osteoarthritis Status: Chronic - Assessment and Plan (Free Text) Plan: Pt very depressed with option of permanent Pryor cath or self catheterization 3 times a day, requesting another trial of DC Pryor, increase Flomax BID, f/u Urology to discuss possibility of Urodinamic study
[2019-01-24] MEDS: Insulin Detemir 100 Units/ml Inj SC SCH (22:48)
[2019-01-24 23:35] VITALS: RESP 20
[2019-01-25 07:47] VITALS: PULSE 97; TEMP 98.6; O2SAT 98
[2019-01-25] MEDS: FLUTICASONE PROPION/SALMETEROL 113-14 IH SCH (08:57)
[2019-01-25] MEDS: Insulin Lispro (humaLOG) 100 Units/ml Inj SC SCH ×4 (08:58→12:17)
[2019-01-25] MEDS: Amylase/Lipase/Protease 5,000 Units ECC PO SCH ×2 (09:01→12:17)
[2019-01-25] MEDS: Pantoprazole 40 mg EC Tab PO SCH (09:02)
[2019-01-25] MEDS: Multivitamin With Minerals Tab PO SCH (09:02)
[2019-01-25 09:04] VITALS: BP 123/67
[2019-01-25 13:11] LABS: SQUAMOUS EPITHIAL 13 /hpf (0-5); URINE BACTERIA RARE (<OCC); URINE BILIRUBIN NEGATIVE (NEGATIVE); URINE BLOOD MODERATE (NEGATIVE); URINE CLARITY TURBID (Clear); URINE COLOR YELLOW (YELLOW); URINE GLUCOSE (UA) >=500 mg/dL (NEGATIVE); URINE LEUKOCYTE ESTERASE MOD Leu/uL (Negative); URINE PROTEIN 100 mg/dL (NEGATIVE); URINE UROBILINOGEN 0.2-1.0 mg/dL (0.2-1.0); WBC CLUMPS MANY /hpf
--- NOTE | 2019-01-25 16:25 | CP.PCM.DIS ---
Provider - Provider Date of Admission: 01/17/19 13:22 Attending physician: Luís David MD Consults: 01/15/19 14:17 Physician Consult Stat Comment: Consulting Provider: Elijah Zavala Consulting Physician: Elijah Zavala Reason for Consult: Left leg pain 01/17/19 09:26 Urology Consult Routine Comment: Consulting Provider: Aryan Puente Consulting Physician: Aryan Puente Reason for Consult: large pre and post void residual 01/17/19 12:55 Physician Consult Routine Comment: Consulting Provider: Juan Manuel King Consulting Physician: Juan Manuel King Reason for Consult: ischemic right leg pain, chronic 01/22/19 10:50 Urology Consult Routine Comment: Consulting Provider: Ian Jenkins Consulting Physician: Ian Jenkins Reason for Consult: 2nd opinion, neurogenic bladder on way catheter Diagnosis - Discharge Diagnosis (1) Acute pain of left lower extremity Status: Acute Priority: High (2) Pain in left foot Status: Acute (3) Pain of left calf Status: Acute (4) Radiculopathy Status: Acute Priority: High (5) PVD (peripheral vascular disease) Status: Chronic Priority: Medium (6) Hyperglycemia due to type 2 diabetes mellitus Status: Acute Priority: High (7) Diabetic neuropathy Status: Chronic Priority: Medium (8) S/P angioplasty Status: Chronic Priority: High (9) Hydronephrosis of left kidney Status: Acute (10) Bladder outlet obstruction Status: Acute (11) HTN (hypertension) Status: Chronic Priority: Medium (12) Moderate COPD (chronic obstructive pulmonary disease) Status: Acute Priority: Medium (13) Dyslipidemia Status: Acute Priority: High (14) Anxiety Status: Chronic Priority: High (15) Osteoarthritis Status: Chronic Priority: Medium Hospital Course - Lab Results Lab Results: Micro Results 01/17/19 13:25 Urine,Way Urine Culture - Final No Growth (<1,000 CFU/ML) Most Recent Lab Values WBC 11.0 K/uL (4.8-10.8) H 01/24/19 05:05 RBC 3.43 Mil/uL (3.80-5.20) L 01/24/19 05:05 Hgb 9.5 g/dL (12.0-16.0) L 01/24/19 05:05 Hct 28.7 % (34.0-47.0) L 01/24/19 05:05 MCV 83.6 fl (81.0-99.0) 01/24/19 05:05 MCH 27.6 pg (27.0-31.0) 01/24/19 05:05 MCHC 33.0 g/dL (33.0-37.0) 01/24/19 05:05 RDW 15.5 % (11.5-14.5) H 01/24/19 05:05 Plt Count 308 K/uL (130-400) 01/24/19 05:05 MPV 8.4 fl (7.2-11.7) 01/17/19 05:18 Neut % (Auto) 51.3 % (50.0-75.0) 01/17/19 05:18 Lymph % (Auto) 30.0 % (20.0-40.0) 01/17/19 05:18 [place] % (Auto) 13.8 % (0.0-10.0) H 01/17/19 05:18 Eos % (Auto) 4.2 % (0.0-4.0) H 01/17/19 05:18 Baso % (Auto) 0.7 % (0.0-2.0) 01/17/19 05:18 Neut # (Auto) 4.6 K/uL (1.8-7.0) 01/17/19 05:18 Lymph # (Auto) 2.7 K/uL (1.0-4.3) 01/17/19 05:18 [place] # (Auto) 1.2 K/uL (0.0-0.8) H 01/17/19 05:18 Eos # (Auto) 0.4 K/uL (0.0-0.7) 01/17/19 05:18 Baso # (Auto) 0.1 K/uL (0.0-0.2) 01/17/19 05:18 PT 11.5 Seconds (9.8-13.1) 01/15/19 15:46 INR 1.0 01/15/19 15:46 Sodium 131 mmol/l (132-148) L 01/24/19 05:05 Potassium 4.1 MMOL/L (3.6-5.0) 01/24/19 05:05 Chloride 93 mmol/L (98-107) L 01/24/19 05:05 Carbon Dioxide 25 mmol/L (22-30) 01/24/19 05:05 Anion Gap 17 (10-20) 01/24/19 05:05 BUN 41 mg/dl (7-17) H 01/24/19 05:05 Creatinine 1.4 mg/dl (0.7-1.2) H 01/24/19 05:05 Est GFR ( Amer) 44 01/24/19 05:05 Est GFR (Non-Af Amer) 36 01/24/19 05:05 POC Glucose (mg/dL) 262 mg/dL (65-110) H 01/25/19 14:42 Random Glucose 393 mg/dL (65-105) H 01/24/19 05:05 Hemoglobin A1c 8.2 % (4.2-6.5) H 01/16/19 04:45 Calcium 9.4 mg/dL (8.4-10.2) 01/24/19 05:05 Total Bilirubin 0.3 mg/dl (0.2-1.3) 01/16/19 04:45 AST 33 U/L (14-36) 01/16/19 04:45 ALT 20 U/L (9-52) 01/16/19 04:45 Alkaline Phosphatase 81 U/L (38-126) 01/16/19 04:45 Total Protein 7.0 G/DL (6.3-8.2) 01/16/19 04:45 Albumin 3.8 g/dL (3.5-5.0) 01/16/19 04:45 Globulin 3.1 gm/dL (2.2-3.9) 01/16/19 04:45 Albumin/Globulin Ratio 1.2 (1.0-2.1) 01/16/19 04:45 Triglycerides 314 mg/DL (0-149) H D 01/16/19 04:45 Cholesterol 168 mg/dL (0-199) 01/16/19 04:45 LDL Cholesterol Direct 82 mg/dL (0-129) 01/16/19 04:45 HDL Cholesterol 28 MG/DL (30-70) L 01/16/19 04:45 Thyroxine (T4) 6.26 ug/dl (5.5-11.0) 01/16/19 04:45 TSH 3rd Generation 3.16 mIU/ML (0.46-4.68) 01/16/19 04:45 Urine Color Yellow (YELLOW) 01/25/19 12:40 Urine Clarity Turbid (Clear) 01/25/19 12:40 Urine pH 6.0 (5.0-8.0) 01/25/19 12:40 Ur Specific [place] 1.010 (1.003-1.030) 01/25/19 12:40 Urine Protein 100 mg/dL (NEGATIVE) 01/25/19 12:40 Urine Glucose (UA) >=500 mg/dL (NEGATIVE) 01/25/19 12:40 Urine Ketones Negative mg/dL (NEGATIVE) 01/25/19 12:40 Urine Blood Moderate (NEGATIVE) 01/25/19 12:40 Urine Nitrate Negative (NEGATIVE) 01/25/19 12:40 Urine Bilirubin Negative (NEGATIVE) 01/25/19 12:40 Urine Urobilinogen 0.2-1.0 mg/dL (0.2-1.0) 01/25/19 12:40 Ur Leukocyte Esterase Mod Nidhi/uL (Negative) 01/25/19 12:40 Urine RBC (Auto) 51 /hpf (0-3) H 01/25/19 12:40 Urine WBC Clumps (Auto) Many /hpf (NONE) H 01/25/19 12:40 Urine Microscopic WBC 9706 /hpf (0-5) H 01/25/19 12:40 Ur Squamous Epith Cells 13 /hpf (0-5) H 01/25/19 12:40 Ur Transition Epith Cell 3 /hpf (0-3) 01/25/19 12:40 Urine Bacteria Rare (<OCC) 01/25/19 12:40 Hyaline Casts 0-2 /hpf (0-2) 01/16/19 03:35 Urine Creatinine 57 mg/dL (20-275) 01/16/19 03:35 Urine Microalbumin 6.4 mg/dL 01/16/19 03:35 Microalb/Creat Ratio 112 (<30) H 01/16/19 03:35 Discharge Exam - Head Exam Head Exam: NORMAL INSPECTION Discharge Plan - Discharge Medications Prescriptions: Zolpidem [Ambien] 10 mg PO HS #5 tab Tamsulosin [Flomax] 0.4 mg PO DAILY #30 cap Amylase/Lipase/Protease [Pancrease 76265 U-5000 U-45813 U] 5,000 unit PO WM #60 ecc Pantoprazole [Protonix EC Tab] 40 mg PO DAILY #14 ect - Follow Up Plan Condition: FAIR Disposition: HOME/ ROUTINE Instructions: How to Care for Your Way Catheter, Female, Radiculopathy (DC), Urinary Retention (DC) Additional Instructions: hacer carla con urologo dentro de 1 semana [facility] visiting nurse [phone] Referrals: Ian Jenkins MD [Staff Provider] - Elijah Zavala MD [Staff Provider] - Luís David MD [Staff Provider] -
== END 2019-01-25 16:45 | disposition home health service (06) | DRG 300 ==
LOC: H.ER 10:51 → H.ERHOLD 14:22 → H.TEL 18:07 → OBSVTOIN 01-17 13:22 → H.MEDSURG1 01-24 17:55
PROVIDERS: ADMIT Internal Medicine Pulmonary Disease; ATTEND Internal Medicine Pulmonary Disease
DX: E11.51 Type 2 diabetes mellitus with diabetic peripheral angiopathy without gangrene (principal); N13.39 Other hydronephrosis; E11.42 Type 2 diabetes mellitus with diabetic polyneuropathy; E11.65 Type 2 diabetes mellitus with hyperglycemia; N32.0 Bladder-neck obstruction; N31.2 Flaccid neuropathic bladder, not elsewhere classified; M51.16 Intervertebral disc disorders with radiculopathy, lumbar region; R33.8 Other retention of urine; M81.0 Age-related osteoporosis without current pathological fracture; M19.90 Unspecified osteoarthritis, unspecified site; K21.9 Gastro-esophageal reflux disease without esophagitis; J44.9 Chronic obstructive pulmonary disease, unspecified; I10 Essential (primary) hypertension; I48.91 Unspecified atrial fibrillation; E78.5 Hyperlipidemia, unspecified; E78.00 Pure hypercholesterolemia, unspecified; F41.9 Anxiety disorder, unspecified; Z95.5 Presence of coronary angioplasty implant and graft; Z79.4 Long term (current) use of insulin; Z79.01 Long term (current) use of anticoagulants; Z79.02 Long term (current) use of antithrombotics/antiplatelets; Z87.891 Personal history of nicotine dependence; Z87.01 Personal history of pneumonia (recurrent); Z88.6 Allergy status to analgesic agent

== ENCOUNTER 2019-02-14 23:23 | Emergency (ER) | payer MEDICARE, MEDICAID ==
[2019-02-14 23:23] VITALS: BMI 30.8
--- NOTE | 2019-02-15 00:57 | ED PDOC ---
HPI: Female Pain <Rojelio Blanco - Last Filed: 02/17/19 09:34> Chief Complaint (Provider): Female Genitourinary History Per: Patient History/Exam Limitations: no limitations Onset/Duration Of Symptoms: Days (x1) Current Symptoms Are (Timing): Still Present Additional Complaint(s): Patient is a 78 y/o female with an extensive PMHx who presents to the ED for evaluation of urinary tension and lower suprapubic pressure onset yesterday. Patient recently had a catheter removed by Dr. Jenkins who told the patient if she was not able to urinate after several hours to come to the ED, thus, prompting her ED visit. Patient denies vomiting and fever. PCP: Dr. Luís David <Gregorio Rivas A - Last Filed: 02/17/19 12:42> Time Seen by Provider: 02/14/19 23:58 Chief Complaint (Nursing): Female Genitourinary Past Medical History Vital Signs: Last Vital Signs Temp 98.0 F 02/15/19 03:12 Pulse 91 H 02/15/19 03:12 Resp 18 02/15/19 03:12 BP 154/63 H 02/15/19 03:12 Pulse Ox 97 02/15/19 03:12 <Rojelio Blanco - Last Filed: 02/17/19 09:34> Reviewed: Historical Data, Nursing Documentation, Vital Signs Vital Signs: Last Vital Signs Temp 98.2 F 02/14/19 23:40 Pulse 89 02/14/19 23:40 Resp BP 149/66 02/14/19 23:40 Pulse Ox 98 02/14/19 23:40 Primary Care Provider: Luís David - Medical History PMH: Anemia, Anxiety, Arthritis, Asthma, Atrial Fibrillation, CHF, COPD, De pression, Diabetes, Graves' Disease, HTN, Hypercholesterolemia, Osteoporosis, Pneumonia, Chronic Kidney Disease Denies: HIV, Hypothyroidism - Surgical History Surgical History: Coronary Stent - Family History Family History: States: Unknown Family Hx - Immunization History Hx Influenza Vaccination: Yes Hx Pneumococcal Vaccination: Yes <Gregorio Rivas - Last Filed: 02/17/19 12:42> - Home Medications Home Medications: Ambulatory Orders Medication Instructions Recorded Montelukast [Singulair] 10 mg PO QPM 10/13/17 Atorvastatin [Lipitor] 40 mg PO DAILY 09/08/18 amLODIPine [Norvasc] 10 mg PO DAILY 09/08/18 oxyCODONE/Acetaminophen [Percocet 1 tab PO Q6 PRN tab 09/28/18 5/325 mg Tab] Ezetimibe [Zetia] 10 mg PO DAILY 10/23/18 Clopidogrel [Plavix] 75 mg PO DAILY #30 tab 10/30/18 Rivaroxaban [Xarelto] 10 mg PO DAILY #30 tab 10/30/18 Albuterol Sulfate [Proair Hfa] 2 puff IH Q4 PRN 01/15/19 Albuterol/Ipratropium [Duoneb 3 3 ml INH Q8 PRN 01/15/19 mg/0.5 mg (3 ml) UD] Budesonide/Formoterol Fumarate 2 puff IH Q12 01/15/19 [Symbicort 160-4.5 Mcg Inhaler] Ergocalciferol (Vitamin D2) 50,000 unit PO SUN 01/15/19 [Vitamin D2] Insulin Aspart, Recombinant 30 unit SC ACTID 01/15/19 [Novolog] Insulin Glargine,Hum.rec.anlog 30 unit SC HS 01/15/19 [Basaglar Kwikpen U-100] Irbesartan/Hydrochlorothiazide 1 tab PO DAILY 01/15/19 [Irbesartan-Hctz 300-12.5 mg Tb] Levocetirizine Dihydrochloride 5 mg PO DAILY PRN 01/15/19 [Xyzal] Mirtazapine [Remeron] 15 mg PO HS 01/15/19 Pregabalin [Lyrica] 50 mg PO Q12 01/15/19 Vitamin B Complex [Super B-50 1 cap PO DAILY 01/15/19 Complex] Amylase/Lipase/Protease [Pancrease 5,000 unit PO WM #60 ecc 01/23/19 93360 U-5000 U-12767 U] Pantoprazole [Protonix EC Tab] 40 mg PO DAILY #14 ect 01/23/19 Tamsulosin [Flomax] 0.4 mg PO DAILY #30 cap 01/23/19 Zolpidem [Ambien] 10 mg PO HS #5 tab 01/23/19 Sulfamethoxazole/Trimethoprim 1 each PO BID #20 tablet 02/15/19 [Bactrim Ds Tablet] Nitrofurantoin Monohyd/M-Cryst 100 mg PO BID #20 capsule 02/17/19 [Macrobid 100 mg Capsule] - Allergies Allergies/Adverse Reactions: Allergies Allergy/AdvReac Type Severity Reaction Status Date / Time aspirin AdvReac RASH Verified 10/23/18 20:19 Review of Systems ROS Statement: Except As Marked, All Systems Reviewed And Found Negative Constitutional: Negative for: Fever Gastrointestinal: Positive for: Abdominal Pain (lower suprapubic pressure). Negative for: Vomiting Genitourinary Female: Negative for: Other (unable to urinate) <Gregorio Rivas A - Last Filed: 02/17/19 12:42> Physical Exam - Reviewed Nursing Documentation Reviewed: Yes Vital Signs Reviewed: Yes - Physical Exam Appears: Positive for: No Acute Distress Head Exam: Positive for: ATRAUMATIC, NORMAL INSPECTION, NORMOCEPHALIC Skin: Positive for: Normal Color, Warm, DRY Eye Exam: Positive for: EOMI, Normal appearance, PERRL Neck: Positive for: Normal, Painless ROM, Supple Cardiovascular/Chest: Positive for: Regular Rate, Rhythm. Negative for: Murmur Respiratory: Positive for: Normal Breath Sounds. Negative for: Respiratory Distress Gastrointestinal/Abdominal: Positive for: Tenderness (suprapubic) Back: Positive for: Normal Inspection. Negative for: L CVA Tenderness, R CVA Tenderness Extremity: Positive for: Normal ROM. Negative for: Pedal Edema, Deformity Neurological/Psych: Positive for: Alert, Oriented (x3) <Gregorio Rivas A - Last Filed: 02/17/19 12:42> - Laboratory Results Result Diagrams: 02/15/19 01:30 02/15/19 01:30 Lab Results: Urine Color Yellow (YELLOW) 02/15/19 01:30 Urine Clarity Cloudy (Clear) 02/15/19 01:30 Urine pH 6.0 (5.0-8.0) 02/15/19 01:30 Ur Specific [place] 1.010 (1.003-1.030) 02/15/19 01:30 Urine Protein 30 mg/dL (NEGATIVE) 02/15/19 01:30 Urine Glucose (UA) >=500 mg/dL (NEGATIVE) 02/15/19 01:30 Urine Ketones Negative mg/dL (NEGATIVE) 02/15/19 01:30 Urine Blood Small (NEGATIVE) 02/15/19 01:30 Urine Nitrate Negative (NEGATIVE) 02/15/19 01:30 Urine Bilirubin Negative (NEGATIVE) 02/15/19 01:30 Urine Urobilinogen 0.2-1.0 mg/dL (0.2-1.0) 02/15/19 01:30 Ur Leukocyte Esterase Large Nidhi/uL (Negative) 02/15/19 01:30 Urine RBC (Auto) 4 /hpf (0-3) H 02/15/19 01:30 Urine WBC Clumps (Auto) Mod /hpf (NONE) H 02/15/19 01:30 Urine Microscopic WBC 386 /hpf (0-5) H 02/15/19 01:30 Ur Squamous Epith Cells 1 /hpf (0-5) 02/15/19 01:30 Urine Bacteria Mod (<OCC) H 02/15/19 01:30 <Rojelio Blanco - Last Filed: 02/17/19 09:34> - Laboratory Results Result Diagrams: 02/15/19 01:30 02/15/19 01:30 - ECG O2 Sat by Pulse Oximetry: 98 (RA) Pulse Ox Interpretation: Normal <Gregorio Rivas - Last Filed: 02/17/19 12:42> Medical Decision Making Medical Decision Making: Time: 2340 Impression: Urinary Tension DDx includes but not limited to UTI and urinary tract obstruction. Plan: Pryor BMP Urine Dipstick CBC Urine Culture UA Time: 0231 Patient able to urinate 1.5 liters. Patient report she feels much better. UA consistent with UTI. Patient to be discharged with Pryor, urine bag, and prescription for Bactrin. Patient given referral to Dr. Ian Jenkins. Scribe Attestation: Documented by Gagandeep Lundy, acting as a scribe forGjoannasim Orbelyan, MD. Provider Scribe Attestation: All medical record entries made by the Scribe were at my direction and personally dictated by me. I have reviewed the chart and agree that the record accurately reflects my personal performance of the history, physical exam, medical decision making, and the department course for this patient. I have also personally directed, reviewed, and agree with the discharge instructions and disposition. <Gregorio Rivas - Last Filed: 02/17/19 12:42> Disposition <Rojelio Blanco - Last Filed: 02/17/19 09:34> - Patient ED Disposition Is Patient to be Admitted: No Doctor Will See Patient In The: Office Counseled Patient/Family Regarding: Studies Performed, Diagnosis, Need For Followup - Disposition Disposition: Routine/Home Disposition Time: 02:31 <Gregorio Rivas - Last Filed: 02/17/19 12:42> - Clinical Impression Clinical Impression: Urinary retention, UTI (urinary tract infection), Pryor catheter in place - Disposition Referrals: Ian Jenkins MD [Staff Provider] - Condition: GOOD Additional Instructions: CARISSA GARCES, thank you for letting us take care of you today. Your provider was Gregorio Rivas MD and you were treated for ABD PAIN. The emergency medical care you received today was directed at your acute symptoms. If you were prescribed any medication, please fill it and take as directed. It may take several days for your symptoms to resolve. Return to the Emergency Department if your symptoms worsen, do not improve, or if you have any other problems. Please contact your doctor or call one of the physicians/clinics you have been referred to that are listed on the Patient Visit Information form that is included in your discharge packet. Bring any paperwork you were given at discharge with you along with any medications you are taking to your follow up visit. Our treatment cannot replace ongoing medical care by a primary care provider outside of the emergency department. Thank you for allowing the [facility] team to be part of your care today. If you had an X-Ray or CT scan: A Radiologist will review the ED reading if any change in treatment is needed we will contact you. If you had a blood, urine, or wound culture: It will take several days for the results, if any change in treatment is needed we will contact you. Prescriptions: Nitrofurantoin Monohyd/M-Cryst [Macrobid 100 mg Capsule] 100 mg PO BID #20 capsule Sulfamethoxazole/Trimethoprim [Bactrim Ds Tablet] 1 each PO BID #20 tablet Instructions: Urinary Tract Infection, Adult (DC), How to Catheterize Yourself, Female, Pryor Catheter, Female, Urinary Retention (DC) Forms: [employer] (Danish) Print Language: CROATIAN
[2019-02-15 01:43] LABS: BASO % 0.5 % (0.0-2.0); EOS # 0.2 K/uL (0.0-0.7); EOS % 2.1 % (0.0-4.0); HEMOGLOBIN 9.3 g/dL (12.0-16.0); LYMPH # 1.9 K/uL (1.0-4.3); LYMPH % 18.5 % (20.0-40.0); MEAN CORPUSCULAR HEMOGLOBIN 28.3 pg (27.0-31.0); MEAN CORPUSCULAR HGB CONC 33.3 g/dL (33.0-37.0); MEAN PLATELET VOLUME 8.5 fl (7.2-11.7); MONO # 1.3 K/uL (0.0-0.8); NEUT # 6.6 K/uL (1.8-7.0); NEUT % 65.9 % (50.0-75.0); RBC 3.28 Mil/uL (3.80-5.20); RED CELL DISTRIBUTION WIDTH 13.9 % (11.5-14.5)
[2019-02-15 02:02] LABS: SQUAMOUS EPITHIAL 1 /hpf (0-5); URINE BACTERIA MOD (<OCC); URINE BILIRUBIN NEGATIVE (NEGATIVE); URINE BLOOD SMALL (NEGATIVE); URINE CLARITY CLOUDY (Clear); URINE COLOR YELLOW (YELLOW); URINE GLUCOSE (UA) >=500 mg/dL (NEGATIVE); URINE LEUKOCYTE ESTERASE LARGE Leu/uL (Negative); URINE PROTEIN 30 mg/dL (NEGATIVE); URINE UROBILINOGEN 0.2-1.0 mg/dL (0.2-1.0); WBC CLUMPS MOD /hpf
[2019-02-15 02:03] LABS: CALCIUM 9.8 mg/dL (8.4-10.2)
[2019-02-15 03:16] VITALS: BP 154/63; PULSE 91; RESP 18; TEMP 98
[2019-02-17 12:28] VITALS: O2SAT 98
== END 2019-02-15 03:21 | disposition home or self-care (01) ==
LOC: H.ER 23:23
DX: R33.9 Retention of urine, unspecified (principal); N39.0 Urinary tract infection, site not specified; Z95.5 Presence of coronary angioplasty implant and graft; Z88.6 Allergy status to analgesic agent; Z79.899 Other long term (current) drug therapy; Z79.4 Long term (current) use of insulin; E11.9 Type 2 diabetes mellitus without complications; I13.0 Hypertensive heart and chronic kidney disease with heart failure and stage 1 through stage 4 chronic kidney disease, or unspecified chronic kidney disease; Z86.59 Personal history of other mental and behavioral disorders; E05.00 Thyrotoxicosis with diffuse goiter without thyrotoxic crisis or storm; E78.00 Pure hypercholesterolemia, unspecified; I48.91 Unspecified atrial fibrillation; J44.9 Chronic obstructive pulmonary disease, unspecified; M81.0 Age-related osteoporosis without current pathological fracture; N18.9 Chronic kidney disease, unspecified

== ENCOUNTER 2019-02-21 17:37 | Emergency (ER) | payer MEDICARE, MEDICAID ==
[2019-02-21 17:38] VITALS: BMI 30.8
[2019-02-21] MEDS ORDERED: Albuterol-Ipratrop 3 mg / 0.5 (3 ml) UD INH STA ×2 (18:19→18:21)
[2019-02-21] MEDS ORDERED: Promethazine/Cod 6.25mg-10mg/5ml Syr UD PO STA (18:20)
[2019-02-21] MEDS ORDERED: Albuterol-Ipratrop 3 mg / 0.5 (3 ml) UD ONE ×2 (18:36)
[2019-02-21] MEDS ORDERED: Promethazine 6.25 MG/5 ML CUP ONE (18:37)
[2019-02-21] MEDS ORDERED: Promethazine/Cod 6.25mg-10mg/5ml Syr UD ONE (18:43)
[2019-02-21] MEDS: Albuterol-Ipratrop 3 mg / 0.5 (3 ml) UD INH STA ×2 (18:44→18:49)
--- NOTE | 2019-02-21 18:59 | ED PDOC ---
HPI: SOB/CHF/COPD Time Seen by Provider: 02/21/19 18:04 Chief Complaint (Nursing): Respiratory Distress Chief Complaint (Provider): SOB, cough History Per: Patient History/Exam Limitations: no limitations Onset/Duration Of Symptoms: Days Additional Complaint(s): 78 year old female with history of COPD presents to ED with SOB, wheezing, cough since yesterday. Patient reports using nebulizer only once but still had difficulty breathing so she came to ED today. She denies any chest pain or fever. PMD: Luís David Past Medical History Reviewed: Historical Data, Nursing Documentation, Vital Signs Vital Signs: Last Vital Signs Temp 97.9 F 02/21/19 17:46 Pulse 110 H 02/21/19 17:46 Resp 18 02/21/19 17:46 BP 144/71 02/21/19 17:46 Pulse Ox 99 02/21/19 17:46 Primary Care Provider: Luís David - Medical History PMH: Anemia, Anxiety, Arthritis, Asthma, Atrial Fibrillation, CHF, COPD, Depression, Diabetes, Graves' Disease, HTN, Hypercholesterolemia, Osteoporosis, Pneumonia, Chronic Kidney Disease Denies: HIV, Hypothyroidism - Surgical History Surgical History: Coronary Stent Other surgeries: angioplasty. catheter in urinary bladder - Family History Family History: States: Hypertension - Social History Current smoker - smoking cessation education provided: No Ex-Smoker (has not smoked in the last 12 months): Yes Alcohol: None Drugs: Denies - Immunization History Hx Influenza Vaccination: Yes Hx Pneumococcal Vaccination: Yes - Home Medications Home Medications: Ambulatory Orders Medication Instructions Recorded Montelukast [Singulair] 10 mg PO QPM 10/13/17 Atorvastatin [Lipitor] 40 mg PO DAILY 09/08/18 amLODIPine [Norvasc] 10 mg PO DAILY 09/08/18 oxyCODONE/Acetaminophen [Percocet 1 tab PO Q6 PRN tab 09/28/18 5/325 mg Tab] Ezetimibe [Zetia] 10 mg PO DAILY 10/23/18 Clopidogrel [Plavix] 75 mg PO DAILY #30 tab 10/30/18 Rivaroxaban [Xarelto] 10 mg PO DAILY #30 tab 10/30/18 Albuterol Sulfate [Proair Hfa] 2 puff IH Q4 PRN 01/15/19 Albuterol/Ipratropium [Duoneb 3 3 ml INH Q8 PRN 01/15/19 mg/0.5 mg (3 ml) UD] Budesonide/Formoterol Fumarate 2 puff IH Q12 01/15/19 [Symbicort 160-4.5 Mcg Inhaler] Ergocalciferol (Vitamin D2) 50,000 unit PO SUN 01/15/19 [Vitamin D2] Insulin Aspart, Recombinant 30 unit SC ACTID 01/15/19 [Novolog] Insulin Glargine,Hum.rec.anlog 30 unit SC HS 01/15/19 [Basaglar Kwikpen U-100] Irbesartan/Hydrochlorothiazide 1 tab PO DAILY 01/15/19 [Irbesartan-Hctz 300-12.5 mg Tb] Levocetirizine Dihydrochloride 5 mg PO DAILY PRN 01/15/19 [Xyzal] Mirtazapine [Remeron] 15 mg PO HS 01/15/19 Pregabalin [Lyrica] 50 mg PO Q12 01/15/19 Vitamin B Complex [Super B-50 1 cap PO DAILY 01/15/19 Complex] Amylase/Lipase/Protease [Pancrease 5,000 unit PO WM #60 ecc 01/23/19 [id number] U-5000 [id number] U] Pantoprazole [Protonix EC Tab] 40 mg PO DAILY #14 ect 01/23/19 Tamsulosin [Flomax] 0.4 mg PO DAILY #30 cap 01/23/19 Zolpidem [Ambien] 10 mg PO HS #5 tab 01/23/19 Sulfamethoxazole/Trimethoprim 1 each PO BID #20 tablet 02/15/19 [Bactrim Ds Tablet] Nitrofurantoin Monohyd/M-Cryst 100 mg PO BID #20 capsule 02/17/19 [Macrobid 100 mg Capsule] - Allergies Allergies/Adverse Reactions: Allergies Allergy/AdvReac Type Severity Reaction Status Date / Time aspirin AdvReac RASH Verified 02/21/19 17:47 Review of Systems ROS Statement: Except As Marked, All Systems Reviewed And Found Negative Constitutional: Negative for: Fever Cardiovascular: Negative for: Chest Pain Respiratory: Positive for: Cough, Shortness of Breath, Wheezing Physical Exam - Reviewed Nursing Documentation Reviewed: Yes Vital Signs Reviewed: Yes - Physical Exam Appears: Positive for: No Acute Distress Head Exam: Positive for: ATRAUMATIC, NORMAL INSPECTION, NORMOCEPHALIC Skin: Positive for: Normal Color, Warm, Dry Eye Exam: Positive for: EOMI, Normal appearance, PERRL ENT: Positive for: Normal ENT Inspection Neck: Positive for: Normal, Painless ROM, Supple Cardiovascular/Chest: Positive for: Regular Rate, Rhythm. Negative for: Murmur Respiratory: Positive for: Normal Breath Sounds, Wheezing (bilaterally) Gastrointestinal/Abdominal: Positive for: Normal Exam, Soft. Negative for: Tenderness Back: Positive for: Normal Inspection. Negative for: L CVA Tenderness, R CVA Tenderness, Vertebral Tenderness Extremity: Positive for: Normal ROM. Negative for: Pedal Edema, Deformity Neurological/Psych: Positive for: Awake, Alert, Normal Tone, Oriented (x3). Negative for: Motor/Sensory Deficits - ECG O2 Sat by Pulse Oximetry: 99 (RA) Pulse Ox Interpretation: Normal Medical Decision Making Medical Decision Making: Time: 1843 Initial Impression: SOB, wheezing Ddx: COPD exacerbation, pneumonia Initial Plan: --EKG --Labs (BMP, CBC, Troponin) --CXR --Albuterol --Medrol --[place] Scribe Attestation: Documented by Rick Justin acting as a scribe for Gregorio Rivas MD. Provider Scribe Attestation: All medical record entries made by the Scribe were at my direction and personally dictated by me. I have reviewed the chart and agree that the record accurately reflects my personal performance of the history, physical exam, m edical decision making, and the department course for this patient. I have also personally directed, reviewed, and agree with the discharge instructions and disposition. Disposition - Disposition Forms: [facility] (Irish)
[2019-02-21 19:18] LABS: BASO % 0.3 % (0.0-2.0); EOS # 0.4 K/uL (0.0-0.7); EOS % 4.8 % (0.0-4.0); HEMOGLOBIN 9.5 g/dL (12.0-16.0); LYMPH # 2.7 K/uL (1.0-4.3); MEAN CELL VOLUME 84.5 fl (81.0-99.0); MEAN CORPUSCULAR HEMOGLOBIN 28.7 pg (27.0-31.0); MEAN CORPUSCULAR HGB CONC 33.9 g/dL (33.0-37.0); MEAN PLATELET VOLUME 8.5 fl (7.2-11.7); MONO % 11.8 % (0.0-10.0); NEUT # 4.5 K/uL (1.8-7.0); NEUT % 52.1 % (50.0-75.0); RBC 3.32 Mil/uL (3.80-5.20); RED CELL DISTRIBUTION WIDTH 14.5 % (11.5-14.5); WHITE BLOOD COUNT 8.7 K/uL (4.8-10.8)
--- NOTE | 2019-02-21 19:20 | ED PDOC ---
- Laboratory Results Result Diagrams: 02/21/19 19:00 02/21/19 19:00 - ECG O2 Sat by Pulse Oximetry: 99 (RA) Medical Decision Making Medical Decision Makin Patient signed out to this provider by Dr. Rivas pending labs and re- evaluation. 2058 Patient reports improvement in symptoms and is diagnosed with COPD. She is stable for discharge and is to follow up with Dr. Brennan Scribe Attestation: Documented by Rick Justin acting as a scribe for Rishabh Hassan MD. Provider Scribe Attestation: All medical record entries made by the Scribe were at my direction and personally dictated by me. I have reviewed the chart and agree that the record accurately reflects my personal performance of the history, physical exam, medical decision making, and the department course for this patient. I have also personally directed, reviewed, and agree with the discharge instructions and disposition. Disposition - Clinical Impression Clinical Impression: COPD (chronic obstructive pulmonary disease) - POA Present On Arrival: None - Disposition Disposition: Routine/Home Disposition Time: 20:59 Condition: IMPROVED Prescriptions: Methylprednisolone [Medrol Dosepak] 4 mg PO ASDIR #1 pkg Instructions: Chronic Obstructive Pulmonary Disease (COPD), Including Emphysema Forms: [employer] ([place])
[2019-02-21 19:24] LABS: BLOOD UREA NITROGEN 23 mg/dl (7-17); CALCIUM 9.6 mg/dL (8.4-10.2); GFR NON-AFRICAN AMERICAN 43
[2019-02-21 19:38] LABS: B-TYPE NATRIURETIC PEPTIDE 55.9 pg/ml (0-900)
[2019-02-21 20:55] VITALS: BP 121/89; PULSE 93; RESP 16; TEMP 98.5
[2019-02-21 21:04] VITALS: O2SAT 99
--- NOTE | 2019-02-22 12:40 | CARD ---
APPROVED REPORT Date of service: 02/21/2019 EKG Measurement Heart [id number] <Conclusion> Sinus tachycardia Non specific T-wave changes Abnormal ECG
--- NOTE | 2019-02-22 15:17 | RAD ---
Date of service: 02/21/2019 HISTORY: Cough, shortness of breath. COMPARISON: 01/15/2019. TECHNIQUE: Chest PA and lateral views FINDINGS: LUNGS: No active pulmonary disease. PLEURA: No significant pleural effusion identified. No pneumothorax apparent. CARDIOVASCULAR: Atherosclerotic calcifications identified primarily aortic arch. Normal cardiac size. No pulmonary vascular congestion. OSSEOUS STRUCTURES: No significant abnormalities. VISUALIZED UPPER ABDOMEN: Normal. OTHER FINDINGS: None. IMPRESSION: No active disease. No significant interval change compared to the prior examination(s).
== END 2019-02-21 21:27 | disposition home or self-care (01) ==
LOC: H.ER 17:37
DX: J44.1 Chronic obstructive pulmonary disease with (acute) exacerbation (principal); J45.901 Unspecified asthma with (acute) exacerbation; J18.9 Pneumonia, unspecified organism; J44.9 Chronic obstructive pulmonary disease, unspecified; Z86.59 Personal history of other mental and behavioral disorders; E11.9 Type 2 diabetes mellitus without complications; I10 Essential (primary) hypertension; E05.00 Thyrotoxicosis with diffuse goiter without thyrotoxic crisis or storm; N18.9 Chronic kidney disease, unspecified
CPT/HCPCS: 71046; 80048; 83880; 84484; 85025; 93005; 94640; 96374; 99282; J2930